=== PATIENT | male | born 1940 | race Caucasian/White ===

== ENCOUNTER → 2017-06-28 10:39 | Outpatient (CLI) | payer OTHER, SELFPAY ==
--- NOTE | 2017-06-28 12:24 | STRESSREP_ITS ---
Stress Test Report Treadmill EKG report: Resting EKG: Normal sinus rhythm, normal axis, intraventricular conduction delay , no previous myocardial infarction noted. Treadmill EKG the patient exercise according to a Jj protocol for 4 minutes and 0 seconds achieving a maximum workload of 5.70 METS. Resting heart rate was initially 67 beats a minute and melvina to maximum 131 beats a minute which represents 90% of the maximal age-predicted heart rate. Resting blood pressure was 146/90, and melvina to maximum of 180/90. Test was terminated due to dyspnea. During exercise the patient's heart rate increased as expected. The patient had no dynamic EKG changes to suggest ischemia. Rare PVC noted. No anginal symptoms noted. Conclusions normal adequate treadmill EKG. Negative for ischemia by EKG criteria. No anginal symptoms noted. Rare PVC noted. Appropriate blood pressure response to exercise. Below average exercise capacity for age. Patient tolerated procedure well. No complications.
== END ==
PROVIDERS: Family Provider Family Medicine; PCP Family Medicine; Visit Provider Family Medicine
DX: R06.09 Other forms of dyspnea (principal)
CPT/HCPCS: 93017

== ENCOUNTER → 2017-12-08 09:33 | Outpatient (CLI) | payer OTHER, SELFPAY ==
[2017-12-08 09:38] LABS: Bacteria 0 SEEN /hpf (None Seen); Mucous, Urine 0 SEEN /hpf (<or=2+); Red Blood Cells-Urine 0 SEEN /hpf (0-5); Squamous Epithelial Cells - UA 0 SEEN /hpf (0-5); White Blood Cells 0 SEEN /hpf (0-5)
[2017-12-08 12:05] LABS: Color, Urine Yellow (Yellow); Glucose, Dipstick Normal (Normal); Ketone-Dipstick Negative (Negative); Leukocyte Esterase-Dipstick Negative /ul (Negative); Nitrite-Dipstick Negative (Negative); Occult Blood-Urine Negative /ul (Negative); Protein-Dipstick Negative (Negative); Urine Bilirubin Dipstick Negative (Negative); Urine Clarity Clear (Clear); Urine Urobilinogen Normal (Normal)
[2017-12-08 12:13] LABS: Absolute Lymphocyte Count 1.71 X10^3/ul (0.83-4.51); Absolute Neutrophil Count 6.5 X10^3/uL (2.0-7.7); Basophil# 0.06 X10^3/uL; Basophil% 0.6 % (0-1); Eosinophil# 0.28 X10^3/uL; Eosinophils% 2.9 % (0-5); Hematocrit 42.4 % (40-54); Hemoglobin 14.1 g/dl (13.0-16.5); Lymphocyte # 1.71 X10^3/ul (4.0); Lymphocyte % 17.7 % (19-41); Mean Corp Hgb Conc 33.3 g/gl (32-36); Mean Corpuscular Hgb 31.6 pg (27.0-32.0); Mean Corpuscular Volume 95.1 fL (80-94); Mean Platelet Vol. 9.8 fl (6.2-12.0); Monocyte# 1.06 X10^3/uL; Neutrophil # 6.51 X10^3/uL (2.7-7.7); Neutrophil % 67.5 % (47-70); Platelet Count 245 K/mm3 (150-450); RBC Distribution Width CV 13.6 % (11.6-14.6); RBC Distribution Width SD 45.7 fl (35.1-43.9); Red Blood Count 4.46 M/mm3 (4.6-6.2); White Blood Count 9.7 K/mm3 (4.4-11.0)
[2017-12-08 12:26] LABS: POSITIVE COUNT NO; POSITIVE DIFFERENTIAL NO; POSITIVE MORPHOLOGY NO
[2017-12-08 12:39] LABS: Hemoglobin A1c 6.6 % (4.2-6.3)
[2017-12-08 12:49] LABS: Microalbumin,Random Urine 6.9 mg/L (NO RANGE EST.); Microalbumin:Creatinine Ratio 7.6 mg/g CRE (<30 mg/g CRE)
[2017-12-08 12:50] LABS: ALB/GLOB Ratio 1.1 RATIO (0.9-2.4); AST(SGOT) 30 U/L (15-37); Alanine Aminotransfer ALT/SGPT 34 U/L (16-61); Alkaline Phosphatase 54 U/L (45-117); Anion Gap 6 (5-15); BUN 18 mg/dL (7-18); BUN/Creat Ratio 17.3 RATIO (10-20); Calcium,Total 9.1 mg/dL (8.5-10.1); Chloride 99 mmol/L (98-107); Cholesterol 134 mg/dL (200); Creatinine, Serum 1.04 mg/dL (0.70-1.30); EST Glomerular Filtration Rate 74 mL/min (>60); Est Glom Filt Rate - Afr Amer 89 mL/min (>60); Globulin 3.7 g/dL (2.2-4.2); Glucose 126 mg/dL (74-106); High Density Lipoprotein 35 mg/dL; Protein, Total 7.7 g/dL (6.4-8.2); Sodium Level 134 mmol/L (136-145); Thyroid Stim Hormone (TSH) 2.52 uIU/mL (0.358-3.74); Triglycerides 211 mg/dL; Very Low Density Lipoprotein 42 mg/dL (5-40)
== END ==
PROVIDERS: Family Provider Family Medicine; PCP Family Medicine; Visit Provider Family Medicine
DX: E11.9 Type 2 diabetes mellitus without complications (principal); E78.5 Hyperlipidemia, unspecified; I10 Essential (primary) hypertension
CPT/HCPCS: 36415; 80053; 80061; 81001; 82043; 82570; 83036; 84443; 85025

== ENCOUNTER → 2018-03-28 10:27 | Outpatient (CLI) | payer OTHER, SELFPAY ==
[2018-03-28 10:30] LABS: Mucous, Urine 0 SEEN /hpf (<or=2+); Red Blood Cells-Urine 0 SEEN /hpf (0-5); Squamous Epithelial Cells - UA 0 SEEN /hpf (0-5); White Blood Cells 0 SEEN /hpf (0-5)
[2018-03-28 12:41] LABS: Color, Urine Yellow (Yellow); Glucose, Dipstick Normal (Normal); Ketone-Dipstick Negative (Negative); Leukocyte Esterase-Dipstick Negative /ul (Negative); Nitrite-Dipstick Negative (Negative); Occult Blood-Urine Negative /ul (Negative); Protein-Dipstick Negative (Negative); Specific Gravity, Urine 1.005 (1.002-1.030); Urine Bilirubin Dipstick Negative (Negative); Urine Clarity Clear (Clear); Urine Urobilinogen Normal (Normal)
[2018-03-28 12:51] LABS: Bacteria RARE /hpf (None Seen)
[2018-03-28 12:52] LABS: Absolute Lymphocyte Count 1.85 X10^3/ul (0.83-4.51); Absolute Neutrophil Count 6.6 X10^3/uL (2.0-7.7); Basophil# 0.04 X10^3/uL; Basophil% 0.4 % (0-1); Eosinophils% 1.9 % (0-5); Hematocrit 42.4 % (40-54); Hemoglobin 13.8 g/dl (13.0-16.5); Lymphocyte # 1.85 X10^3/ul (4.0); Lymphocyte % 17.8 % (19-41); Mean Corp Hgb Conc 32.5 g/gl (32-36); Mean Corpuscular Hgb 30.9 pg (27.0-32.0); Mean Corpuscular Volume 95.1 fL (80-94); Mean Platelet Vol. 9.7 fl (6.2-12.0); Monocyte# 1.63 X10^3/uL; Monocyte% 15.7 % (0-10); Neutrophil # 6.64 X10^3/uL (2.7-7.7); Neutrophil % 63.9 % (47-70); Platelet Count 245 K/mm3 (150-450); RBC Distribution Width CV 13.5 % (11.6-14.6); RBC Distribution Width SD 46.5 fl (35.1-43.9); Red Blood Count 4.46 M/mm3 (4.6-6.2); White Blood Count 10.4 K/mm3 (4.4-11.0)
[2018-03-28 13:01] LABS: Hemoglobin A1c 6.4 % (4.2-6.3)
[2018-03-28 13:11] LABS: Albumin, Serum 4.1 g/dL (3.2-5.0); BUN 15 mg/dL (7-18); BUN/Creat Ratio 14.9 RATIO (10-20); Creatinine, Serum 1.01 mg/dL (0.70-1.30); EST Glomerular Filtration Rate 76 mL/min (>60); Est Glom Filt Rate - Afr Amer 92 mL/min (>60); Glucose 99 mg/dL (74-106); Protein, Total 7.3 g/dL (6.4-8.2)
[2018-03-28 13:12] LABS: ALB/GLOB Ratio 1.3 RATIO (0.9-2.4); AST(SGOT) 19 U/L (15-37); Alanine Aminotransfer ALT/SGPT 26 U/L (16-61); Alkaline Phosphatase 64 U/L (45-117); Anion Gap 10 (5-15); Chloride 101 mmol/L (98-107); Cholesterol 120 mg/dL (200); Globulin 3.2 g/dL (2.2-4.2); High Density Lipoprotein 40 mg/dL; Potassium 4.1 mmol/L (3.5-5.1); Sodium Level 140 mmol/L (136-145); Triglycerides 150 mg/dL; Very Low Density Lipoprotein 30 mg/dL (5-40)
[2018-03-28 13:16] LABS: POSITIVE COUNT NO; POSITIVE DIFFERENTIAL YES; POSITIVE MORPHOLOGY NO
== END ==
PROVIDERS: Family Provider Family Medicine; PCP Family Medicine; Visit Provider Family Medicine
DX: I10 Essential (primary) hypertension (principal); E78.5 Hyperlipidemia, unspecified; E11.9 Type 2 diabetes mellitus without complications
CPT/HCPCS: 36415; 80053; 80061; 81001; 83036; 85025

== ENCOUNTER → 2018-06-27 09:35 | Outpatient (CLI) | payer OTHER, SELFPAY ==
[2018-06-27 12:30] LABS: ALB/GLOB Ratio 1.3 RATIO (0.9-2.4); AST(SGOT) 24 U/L (15-37); Alanine Aminotransfer ALT/SGPT 30 U/L (16-61); Albumin, Serum 4.1 g/dL (3.2-5.0); Alkaline Phosphatase 53 U/L (45-117); Anion Gap 5 (5-15); BUN 18 mg/dL (7-18); BUN/Creat Ratio 18.5 RATIO (10-20); Calcium,Total 9.3 mg/dL (8.5-10.1); Chloride 102 mmol/L (98-107); Creatinine, Serum 0.97 mg/dL (0.70-1.30); EST Glomerular Filtration Rate 80 mL/min (>60); Est Glom Filt Rate - Afr Amer 96 mL/min (>60); Globulin 3.2 g/dL (2.2-4.2); Glucose 97 mg/dL (74-106); Potassium 4.3 mmol/L (3.5-5.1); Protein, Total 7.3 g/dL (6.4-8.2); Sodium Level 138 mmol/L (136-145)
[2018-06-27 12:38] LABS: Microalbumin,Random Urine 5.7 mg/L (NO RANGE EST.); Microalbumin:Creatinine Ratio 19.8 mg/g CRE (<30 mg/g CRE)
== END ==
PROVIDERS: Family Provider Family Medicine; PCP Family Medicine; Referring Provider Family Medicine; Visit Provider Family Medicine
DX: E11.9 Type 2 diabetes mellitus without complications (principal); I10 Essential (primary) hypertension
CPT/HCPCS: 36415; 80053; 82043; 82570; 83036

== ENCOUNTER → 2018-12-24 10:30 | Outpatient (CLI) | payer OTHER, SELFPAY ==
[2018-12-24 10:35] LABS: Mucous, Urine 0 SEEN /hpf (<or=2+); Red Blood Cells-Urine 0 SEEN /hpf (0-5)
[2018-12-24 12:32] LABS: Color, Urine Yellow (Yellow); Glucose, Dipstick Normal (Normal); Ketone-Dipstick Negative (Negative); Leukocyte Esterase-Dipstick Negative /ul (Negative); Nitrite-Dipstick Negative (Negative); Occult Blood-Urine Negative /ul (Negative); Protein-Dipstick Negative (Negative); Urine Bilirubin Dipstick Negative (Negative); Urine Clarity Sl. Cloudy (Clear); Urine Urobilinogen Normal (Normal)
[2018-12-24 12:34] LABS: Absolute Lymphocyte Count 1.57 X10^3/uL (0.83-4.51); Absolute Neutrophil Count 4.9 X10^3/uL (2.0-7.7); Basophil# 0.05 X10^3/uL; Basophil% 0.6 % (0-1); Eosinophil# 0.77 X10^3/uL; Eosinophils% 9.2 % (0-5); Hematocrit 44.1 % (40-54); Hemoglobin 14.4 g/dL (13.0-16.5); Lymphocyte # 1.57 X10^3/ul (4.0); Lymphocyte % 18.8 % (19-41); Mean Corp Hgb Conc 32.7 g/dL (32-36); Mean Corpuscular Hgb 30.8 pg (27.0-32.0); Mean Corpuscular Volume 94.2 fL (80-94); Mean Platelet Vol. 10.3 fl (6.2-12.0); Monocyte# 1.01 X10^3/uL; Monocyte% 12.1 % (0-10); NRBC Flagged by Analyzer 0 % (0-5); Neutrophil % 58.7 % (47-70); Platelet Count 233 K/mm3 (150-450); RBC Distribution Width CV 13.2 % (11.6-14.6); RBC Distribution Width SD 45.7 fl (35.1-43.9); Red Blood Count 4.68 M/mm3 (4.6-6.2); White Blood Count 8.4 K/mm3 (4.4-11.0)
[2018-12-24 12:43] LABS: Bacteria RARE /hpf (None Seen); Squamous Epithelial Cells - UA 0-5 SEEN /hpf (0-5); White Blood Cells 0-5 SEEN /hpf (0-5)
[2018-12-24 13:07] LABS: BUN 16 mg/dL (7-18); Creatinine, Serum 0.96 mg/dL (0.70-1.30); EST Glomerular Filtration Rate 80 mL/min (>60); Glucose 103 mg/dL (74-106)
[2018-12-24 13:08] LABS: ALB/GLOB Ratio 1.1 RATIO (0.9-2.4); AST(SGOT) 22 U/L (15-37); Alanine Aminotransfer ALT/SGPT 32 U/L (16-61); Albumin, Serum 3.8 g/dL (3.2-5.0); Alkaline Phosphatase 69 U/L (45-117); Anion Gap 7 (5-15); BUN/Creat Ratio 16.6 RATIO (10-20); Calcium,Total 9.2 mg/dL (8.5-10.1); Chloride 103 mmol/L (98-107); Cholesterol 147 mg/dL (200); Est Glom Filt Rate - Afr Amer 97 mL/min (>60); Globulin 3.5 g/dL (2.2-4.2); High Density Lipoprotein 41 mg/dL; Potassium 4.2 mmol/L (3.5-5.1); Protein, Total 7.3 g/dL (6.4-8.2); Sodium Level 139 mmol/L (136-145); Triglycerides 152 mg/dL; Very Low Density Lipoprotein 30 mg/dL (5-40)
[2018-12-24 13:16] LABS: Hemoglobin A1c 6.3 % (4.2-6.3)
== END ==
PROVIDERS: Family Provider Family Medicine; PCP Family Medicine; Referring Provider Family Medicine; Visit Provider Family Medicine
DX: E11.9 Type 2 diabetes mellitus without complications (principal); I10 Essential (primary) hypertension; E78.5 Hyperlipidemia, unspecified
CPT/HCPCS: 36415; 80053; 80061; 81001; 83036; 85025

== ENCOUNTER → 2018-12-27 13:34 | Outpatient (CLI) | payer OTHER, SELFPAY ==
--- NOTE | 2018-12-26 | LES_PTH ---
PATIENT: CHAU BARRON LOC: [facility] U#:[id number] AGE/SX: 84/M ROOM: RE12/27/[address]: Dr. Myles Fisher MD : 1940 BED: DIS: SPEC #: [id number] RECD: 12/27/18 10:02 STATUS: SRIRAM AMALIA #: [id number] REGINO: 12/26/18 00:[address]: Myles Fisher DEPT: SURGICAL PATHOLOGY RECD BY: Marcelino Medina ENTERED: 12/27/18 14:25 SP TYPE: Lesion OTHR DR: Dr. 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 See comment. KYLIE:ildefonso 12/28/18 COMMENT The lesion is present at the deep margin of the specimen. Clinical correlation and appropriate follow up are necessary. Case has been reviewed in consultation with Dr. Miller who concurs with the above diagnosis. IDC:AM MICROSCOPIC DESCRIPTION Slides are reviewed. GROSS DESCRIPTION Received in fixative is one container labeled with the patient's name and designated right inferior medial forehead. The specimen consists of a shave biopsy of carcamo-white skin measuring 0.5 x 0.3 x 0.1 cm. The specimen is inked and submitted entirely in one cassette. It will be bisected at the time of embedding. / KYLIE:ildefonso 12/27/18 TC:0 CPT: 85459
== END ==
PROVIDERS: Family Provider Family Medicine; PCP Family Medicine; Visit Provider Dermatology
DX: D48.5 Neoplasm of uncertain behavior of skin (principal)
CPT/HCPCS: 88305

== ENCOUNTER → 2019-01-04 10:57 | Outpatient (CLI) | payer OTHER, SELFPAY ==
--- NOTE | 2019-01-04 11:00 | ECHOCS_ITS ---
Reason For Study: Murmur Procedure This was a 2D Doppler, Color Flow transthoracic echocardiogram. The study was technically difficult. Contrast injection was performed. Exam performed in department. Left Ventricle Normal LV size. Mild concentric left ventricular hypertrophy. Left ventricular systolic function is normal. The estimated ejection fraction is 60 %. No regional wall motion abnormalities noted. Right Ventricle Normal RV size. Normal systolic function. Atria Normal left atrium. Normal right atrium. Mitral Valve Normal mitral valve. Tricuspid Valve Normal tricuspid valve. Aortic Valve Trisinus/trileaflet aortic valve. Mild focal aortic valve calcification. Pulmonic Valve Normal pulmonic valve. Great Vessels Calcified aortic root. The pulmonary artery is normal size. Normal inferior vena cava. Pericardium/Pleural No pericardial effusion. Medication 22 gauge I.V. with prn adaptor inserted into left arm. Diluted definity 3ml given slow IV push to enhance endocardial definition. Performed a rapid injection of agitated mix of 9 cc saline and 1cc air to assess for atrial septal defect. MMode/2D Measurements & Calculations LVIDd: 4.3 cm IVSd: 1.3 cm LVOT diam: 2.5 cm LVIDs: 3.1 cm LVPWd: 1.2 cm RVDd: 4.1 cm FS: 28.6 % LVOT area: 5.0 cm2 Ao root diam: 4.4 cm LAV(MOD-bp): 81.6 ml LA A4 area: 21.2 cm2 LA dimension: 4.3 cm LAV(MOD-bp) Indexed: 32.0 ml/m2 LAV(MOD-sp2): 81.1 ml LAV(MOD-sp4): 70.6 ml RA A4 area: 18.2 cm2 Time Measurements MV dec time: 0.32 sec Doppler Measurements & Calculations MV E max antoni: 58.4 cm/sec Lat Peak E' Antoni: 3.7 cm/sec Med Peak E' Antoni: 5.0 cm/sec MV A max antoni: 95.5 cm/sec E/E' lat: 15.9 E/E' med: 11.7 MV E/A: 0.61 MV V2 max: 109.8 cm/sec MV P1/2t max antoni: 79.0 cm/sec Ao V2 max: 119.1 cm/sec MV max P.8 mmHg MV P1/2t: 120.5 msec Ao max P.7 mmHg MV V2 mean: 51.5 cm/sec MV dec slope: 192.0 cm/sec2 Ao V2 mean: 78.0 cm/sec MV mean P.3 mmHg Ao mean P.8 mmHg MV V2 VTI: 34.9 cm MVA(P1/2t): 1.8 cm2 Ao V2 VTI: 24.9 cm MVA(VTI): 3.0 cm2 BERTHA(I,D): 4.2 cm2 BERHTA(V,D): 3.8 cm2 LV V1 max: 92.1 cm/sec SV(LVOT): 105.0 ml PA V2 max: 74.2 cm/sec LV V1 max P.4 mmHg LV V1 mean P.7 mmHg LV V1 mean: 61.0 cm/sec LV V1 VTI: 21.2 cm Interpretation Summary Normal LV size. Mild concentric left ventricular hypertrophy. Left ventricular systolic function is normal. The estimated ejection fraction is 60 %. Contrast injection was performed. Ordering Physician: Estrada Ford Referring Physician: Estrada Ford Performed By: Jacek Bob RCS
== END ==
PROVIDERS: Family Provider Family Medicine; PCP Family Medicine; Referring Provider Family Medicine; Visit Provider Family Medicine
DX: R01.1 Cardiac murmur, unspecified (principal)
CPT/HCPCS: 93306; Q9957; A4216; C8929

== ENCOUNTER → 2019-04-19 10:28 | Outpatient (CLI) | payer OTHER, SELFPAY ==
[2019-04-19 13:01] LABS: ALB/GLOB Ratio 1.1 RATIO (0.9-2.4); AST(SGOT) 27 U/L (15-37); Alanine Aminotransfer ALT/SGPT 32 U/L (16-61); Alkaline Phosphatase 66 U/L (45-117); Anion Gap 4 (5-15); BUN 19 mg/dL (7-18); BUN/Creat Ratio 19.2 RATIO (10-20); Calcium,Total 9.3 mg/dL (8.5-10.1); Chloride 104 mmol/L (98-107); Cholesterol 134 mg/dL (200); Creatinine, Serum 0.99 mg/dL (0.70-1.30); EST Glomerular Filtration Rate 78 mL/min (>60); Est Glom Filt Rate - Afr Amer 94 mL/min (>60); Globulin 3.6 g/dL (2.2-4.2); Glucose 101 mg/dL (74-106); High Density Lipoprotein 41 mg/dL; Potassium 4.4 mmol/L (3.5-5.1); Protein, Total 7.6 g/dL (6.4-8.2); Sodium Level 136 mmol/L (136-145); Triglycerides 136 mg/dL; Very Low Density Lipoprotein 27 mg/dL (5-40)
[2019-04-19 13:13] LABS: Hemoglobin A1c 6.2 % (4.2-6.3)
[2019-04-19 13:21] LABS: Microalbumin,Random Urine < 5.0 mg/L (NO RANGE EST.)
== END ==
PROVIDERS: PCP Family Medicine; Referring Provider Family Medicine; Visit Provider Family Medicine
DX: I10 Essential (primary) hypertension (principal); E11.9 Type 2 diabetes mellitus without complications; E78.5 Hyperlipidemia, unspecified
CPT/HCPCS: 36415; 80053; 80061; 82043; 82570; 83036

== ENCOUNTER → 2019-08-21 09:02 | Outpatient (CLI) | payer OTHER, SELFPAY ==
--- NOTE | 2019-08-21 09:05 | RAD_ITS ---
STUDY: X-RAY - LEFT KNEE REASON FOR EXAM: Male, 78 years old. knee pain, left more than right TECHNIQUE: 4 view(s) of the knee. COMPARISON: None. FINDINGS: Normal visualized distal femur. Normal visualized proximal tibia and fibula. Normal proximal tibiofibular articulation. There is moderate degenerative arthrosis of the medial femorotibial compartment with moderate joint space narrowing. Normal lateral femorotibial compartment. There is severe degenerative arthrosis of the patellofemoral articulation. Superior and inferior patellar osteophytes. The soft tissue structures are unremarkable. RAD/Knee 4 or More Views IMPRESSION: Moderate medial and severe patellofemoral osteoarthritis. Electronically Signed: Terry Chua MD at 17:52 EDT Tel , Service support ,
--- NOTE | 2019-08-21 09:05 | RAD_ITS ---
STUDY: X-RAY - RIGHT KNEE REASON FOR EXAM: Male, 78 years old. knee pain, left more than right TECHNIQUE: 4 view(s) of the knee. COMPARISON: 04/13/2015 FINDINGS: Normal visualized distal femur. Normal visualized proximal tibia and fibula. Normal proximal tibiofibular articulation. There is moderate degenerative arthrosis of the medial femorotibial compartment with moderate joint space narrowing. Normal lateral femorotibial compartment. There is moderate degenerative arthrosis of the patellofemoral articulation. Superior patellar osteophyte. The soft tissue structures are unremarkable. RAD/Knee 4 or More Views IMPRESSION: Moderate medial and patellofemoral osteoarthritis. Electronically Signed: Terry Chua MD at 17:16 EDT Tel , Service support ,
== END ==
PROVIDERS: PCP Family Medicine; Referring Provider Family Medicine; Visit Provider Family Medicine
DX: M25.569 Pain in unspecified knee (principal)
CPT/HCPCS: 73564

== ENCOUNTER 2019-09-23 09:00 | Outpatient (RCR) | payer OTHER, SELFPAY ==
--- NOTE | 2019-09-03 09:43 | HP.PTEVAL ---
Patient's Visit Information CHAU BARRON is a 79 year old M referred to Physical Therapy by Dr. Estrada Ford MD with a diagnosis of L knee pain. Date of Evaluation: 09/03/19 Physical Therapist: Hernan Galan, PT, ATC - Visit Plan Frequency: 2x /Week Duration: 3 Weeks Plan: L LE stretching and strengthening, balance and proprio, core strengthening, bike, and HEP - Subjective Pt reports he was walking his dog when the dog pulled left and he injured his L knee. Pt reports the knee became swollen and was sore. Pt notes he had xrays which revealed L knee OA. Pt notes his L knee pain is stiff and some pain still exists, but he also notes he has pain in his L hip that still awakens him at night. Pt notes he believes the hip pain is related to the knee pain. pt denies any tingling or numbness iin L LE. Pt notes a PMHx of L knee pain for the last 3-4 years which was intermittent in nature. 0/10 pain at rest, 2/10 pain at worst. Pt lives in a 3 story home and has difficulty with negotiating stairs half of the time. - Pain L knee pain Pain Intensity (Out of 10): 0 Pain Intensity Range: 2 - Objective Neuro: B LE sensation is WNL to light touch. B achilles reflex= 1/3. Palpation: Mild swelling noted in L knee. Crepitus noted with AROM. Girth at joint line: L knee 44 cm, R knee 41 cm. ROM: R knee 0-3-117; L knee 0-10-91. MMT: L knee 4+/5 while R knee 5/5. Special test: pos apley compression test - Goals Goal 1:: Decrease L knee pain x 50% to aid with sleep Goal Time Frame: 2-4 Weeks Goal 2:: Increase L LE flexibility x 1 grade to aid with decreasing pain Goal Time Frame: 2-4 Weeks Goal 3:: I with HEP Goal Time Frame: 2-4 Weeks Goal 4:: Increase L knee ROM x 10 degrees to aid with stair negotiation Goal Time Frame: 2-4 Weeks - Rehabilitation Potential Physical Therapy Diagnosis: L knee pain, weakness, and limited ROM secondary to L knee OA Rehabilitation Potential: Good - Anticipated Interventions Patient/Client Instruction: Educate patient on: Condition, Plan of Care For the Purpose of:: To improve self management Therapeutic Exercise to Include: Strength training, Balance training, Flexibilty training, Active ROM, Dynamic Lumbar Stabilization For the Purpose of:: To decrease pain, To increase ROM, To improve muscle performance and motor function Cryotherapy (ice pack, ice massage): Yes For the Purpose of:: To decrease pain Thank you for the opportunity to evaluate your patient. For Medicare and Medicare HMO plans, please review the plan of care and approve it. It will need to be FAXED BACK to us at [phone] for Medicare purposes. For Medicare only, by signing this I certify the plan of care. Please let me know if there are questions or concerns regarding this plan of care. Physician Signature: Date:
--- NOTE | 2019-09-23 09:42 | HP.PTREVAL ---
Dr. Estrada Ford MD, It has been my pleasure to treat CHAU BARRON over the last 7 visits for L knee pain. Please see the progress note below for an update on the physical therapy plan of care! Subjective: Pt reports he has very minimal pain this date. Ready for discharge Objective/Function: L knee pain is .5/10. L knee ROM: 0-2-110. L knee MMT: 5/5 throughout. Pt is I with HEP. Rx goals achieved Plan Plan: Discharge Goals Goal 1:: Decrease L knee pain x 50% to aid with sleep Goal Time Frame: 2-4 Weeks Goal Progress: Goal Met Goal 2:: Increase L LE flexibility x 1 grade to aid with decreasing pain Goal Time Frame: 2-4 Weeks Goal Progress: Goal Met Goal 3:: I with HEP Goal Time Frame: 2-4 Weeks Goal Progress: Goal Met Goal 4:: Increase L knee ROM x 10 degrees to aid with stair negotiation Goal Time Frame: 2-4 Weeks Goal Progress: Goal Met Anticipated Interventions Patient/Client Instruction: Educate patient on: Condition, Plan of Care For the Purpose of:: To improve self management Therapeutic Exercise to Include: Strength training, Balance training, Flexibilty training, Active ROM, Dynamic Lumbar Stabilization For the Purpose of:: To decrease pain, To increase ROM, To improve muscle performance and motor function Cryotherapy (ice pack, ice massage): Yes For the Purpose of:: To decrease pain Please do not hesitate to contact me at [phone] by phone or if you have questions or concerns regarding this new plan of care! Sincerely, Hernan Galan, PT, ATC
--- NOTE | 2019-11-15 09:34 | HP.PTDCSUM ---
It has been my pleasure to treat CHAU BARRON referred by Dr. Estrada Ford MD, with the diagnosis of L knee pain for a total of 7 visit(s). Discharge Date: Please see the following information for a summary of their discharge status. Subjective: Pt reports he has very minimal pain this date. Ready for discharge L knee pain Pain Intensity (Out of 10): 1 % Improvement: 20 Objective/Function: L knee pain is .5/10. L knee ROM: 0-2-110. L knee MMT: 5/5 throughout. Pt is I with HEP. Rx goals achieved Goal 1:: Decrease L knee pain x 50% to aid with sleep Goal Progress: Goal Met Goal 2:: Increase L LE flexibility x 1 grade to aid with decreasing pain Goal Progress: Goal Met Goal 3:: I with HEP Goal Progress: Goal Met Goal 4:: Increase L knee ROM x 10 degrees to aid with stair negotiation Goal Progress: Goal Met Plan: Discharge If there are questions or concerns regarding this patient's physical therapy, please feel free to call me at [phone]. Thank you for the referral of this patient. Sincerely, Hernan Galan, PT, ATC
== END 2019-09-23 19:00 | disposition home or self-care (01) ==
LOC: PT 09:00
PROVIDERS: PCP Family Medicine; Referring Provider Family Medicine; Visit Provider Family Medicine
DX: M17.12 Unilateral primary osteoarthritis, left knee (principal)
CPT/HCPCS: 97110; 97161; 97164

== ENCOUNTER → 2019-12-20 09:34 | Outpatient (CLI) | payer OTHER, SELFPAY ==
[2019-12-20 09:37] LABS: Bacteria 0 SEEN /hpf (None Seen); Mucous, Urine 0 SEEN /hpf (<or=2+); Red Blood Cells-Urine 0 SEEN /hpf (0-5); Squamous Epithelial Cells - UA 0 SEEN /hpf (0-5); White Blood Cells 0 SEEN /hpf (0-5)
[2019-12-20 12:22] LABS: Absolute Lymphocyte Count 1.67 X10^3/uL (0.83-4.51); Absolute Neutrophil Count 5.4 X10^3/uL (2.0-7.7); Basophil# 0.09 X10^3/uL; Eosinophil# 0.34 X10^3/uL; Eosinophils% 3.9 % (0-5); Hematocrit 43.7 % (40-54); Lymphocyte # 1.67 X10^3/ul (4.0); Lymphocyte % 19.2 % (19-41); Mean Corpuscular Hgb 30.6 pg (27.0-32.0); Mean Corpuscular Volume 95.4 fL (80-94); Mean Platelet Vol. 10.2 fl (6.2-12.0); Monocyte# 1.11 X10^3/uL; Monocyte% 12.8 % (0-10); NRBC Flagged by Analyzer 0 % (0-5); Neutrophil # 5.43 X10^3/uL (2.7-7.7); Neutrophil % 62.6 % (47-70); Platelet Count 252 K/mm3 (150-450); RBC Distribution Width CV 13.4 % (11.6-14.6); RBC Distribution Width SD 47.2 fl (35.1-43.9); Red Blood Count 4.58 M/mm3 (4.6-6.2); White Blood Count 8.7 K/mm3 (4.4-11.0)
[2019-12-20 12:26] LABS: Color, Urine Yellow (Yellow); Glucose, Dipstick Normal (Normal); Ketone-Dipstick Negative (Negative); Leukocyte Esterase-Dipstick Negative /ul (Negative); Nitrite-Dipstick Negative (Negative); Occult Blood-Urine Negative /ul (Negative); Protein-Dipstick Negative (Negative); Urine Bilirubin Dipstick Negative (Negative); Urine Clarity Clear (Clear); Urine Urobilinogen Normal (Normal)
[2019-12-20 12:40] LABS: ALB/GLOB Ratio 1.1 RATIO (0.9-2.4); AST(SGOT) 26 U/L (15-37); Alanine Aminotransfer ALT/SGPT 35 U/L (16-61); Alkaline Phosphatase 73 U/L (45-117); Anion Gap 5 (5-15); BUN 23 mg/dL (7-18); BUN/Creat Ratio 20.9 RATIO (10-20); Calcium,Total 9.5 mg/dL (8.5-10.1); Chloride 105 mmol/L (98-107); Cholesterol 149 mg/dL (200); EST Glomerular Filtration Rate 69 mL/min (>60); Est Glom Filt Rate - Afr Amer 83 mL/min (>60); Globulin 3.8 g/dL (2.2-4.2); Glucose 123 mg/dL (74-106); High Density Lipoprotein 41 mg/dL; Potassium 4.4 mmol/L (3.5-5.1); Protein, Total 7.8 g/dL (6.4-8.2); Sodium Level 138 mmol/L (136-145); Triglycerides 159 mg/dL; Very Low Density Lipoprotein 32 mg/dL (5-40)
[2019-12-20 12:48] LABS: Microalbumin,Random Urine 10.6 mg/L (NO RANGE EST.); Microalbumin:Creatinine Ratio 8.7 mg/g CRE (<30 mg/g CRE)
[2019-12-20 14:01] LABS: Hemoglobin A1c 6.4 % (3.8-5.6)
== END ==
PROVIDERS: PCP Family Medicine; Referring Provider Family Medicine; Visit Provider Family Medicine
DX: E11.9 Type 2 diabetes mellitus without complications (principal); E78.5 Hyperlipidemia, unspecified; I10 Essential (primary) hypertension
CPT/HCPCS: 36415; 80053; 80061; 81001; 82043; 82570; 83036; 85025

== ENCOUNTER → 2020-04-17 10:56 | Outpatient (CLI) | payer OTHER, BC, SELFPAY ==
[2020-04-17 12:17] LABS: Absolute Lymphocyte Count 1.54 X10^3/uL (0.83-4.51); Absolute Neutrophil Count 5.4 X10^3/uL (2.0-7.7); Basophil# 0.07 X10^3/uL; Basophil% 0.8 % (0-1); Eosinophil# 0.35 X10^3/uL; Eosinophils% 4.1 % (0-5); Hematocrit 42.7 % (40-54); Hemoglobin 14.9 g/dL (13.0-16.5); Lymphocyte # 1.54 X10^3/ul (4.0); Lymphocyte % 18.2 % (19-41); Mean Corp Hgb Conc 34.9 g/dL (32-36); Mean Corpuscular Hgb 33.6 pg (27.0-32.0); Mean Corpuscular Volume 96.2 fL (80-94); Monocyte# 1.08 X10^3/uL; Monocyte% 12.8 % (0-10); NRBC Flagged by Analyzer 0 % (0-5); Neutrophil # 5.38 X10^3/uL (2.7-7.7); Neutrophil % 63.6 % (47-70); Platelet Count 231 K/mm3 (150-450); RBC Distribution Width CV 13.7 % (11.6-14.6); RBC Distribution Width SD 46.5 fl (35.1-43.9); Red Blood Count 4.44 M/mm3 (4.6-6.2); White Blood Count 8.5 K/mm3 (4.4-11.0)
[2020-04-17 12:34] LABS: ALB/GLOB Ratio 1.1 RATIO (0.9-2.4); AST(SGOT) 21 U/L (15-37); Alanine Aminotransfer ALT/SGPT 36 U/L (16-61); Albumin, Serum 4.1 g/dL (3.2-5.0); Alkaline Phosphatase 62 U/L (45-117); Anion Gap 3 (5-15); BUN 15 mg/dL (7-18); BUN/Creat Ratio 14.4 RATIO (10-20); Calcium,Total 9.5 mg/dL (8.5-10.1); Chloride 102 mmol/L (98-107); Cholesterol 150 mg/dL (200); Creatinine, Serum 1.04 mg/dL (0.70-1.30); EST Glomerular Filtration Rate 73 mL/min (>60); Est Glom Filt Rate - Afr Amer 89 mL/min (>60); Globulin 3.8 g/dL (2.2-4.2); Glucose 119 mg/dL (74-106); High Density Lipoprotein 44 mg/dL; Potassium 4.3 mmol/L (3.5-5.1); Protein, Total 7.9 g/dL (6.4-8.2); Sodium Level 136 mmol/L (136-145); Triglycerides 140 mg/dL; Very Low Density Lipoprotein 28 mg/dL (5-40)
[2020-04-17 13:02] LABS: Hemoglobin A1c 6.2 % (3.8-5.6)
[2020-04-17 15:32] LABS: Microalbumin,Random Urine 23.1 mg/L (NO RANGE EST.); Microalbumin:Creatinine Ratio 31.6 mg/g CRE (<30 mg/g CRE)
== END ==
PROVIDERS: PCP Family Medicine; Referring Provider Family Medicine; Visit Provider Family Medicine
DX: E11.9 Type 2 diabetes mellitus without complications (principal); I10 Essential (primary) hypertension; E78.5 Hyperlipidemia, unspecified
CPT/HCPCS: 36415; 80053; 80061; 82043; 82570; 83036; 85025

== ENCOUNTER → 2020-06-04 09:58 | Outpatient (CLI) | payer BC, SELFPAY ==
--- NOTE | 2020-06-04 10:01 | CDU_ITS ---
Reason For Study: Stenosis Rt. Velocities/BP Lt. Velocities/BP Prox CCA 128.4/27.9 cm/sec. Prox CCA 90.3/30.2 cm/sec. Mid CCA 90/24.3 cm/sec. Mid CCA 76.8/10.6 cm/sec. Dist CCA 75.3/15.1 cm/sec. Dist CCA 91.5/25.3 cm/sec. Prox ICA 71.6/24.9 cm/sec. Prox ICA 86.9/26.7 cm/sec. Mid ICA 81.4/23.7 cm/sec. Mid ICA 72.3/28.5 cm/sec. Dist ICA 87.5/31.1 cm/sec. Dist ICA 58.4/24.1 cm/sec. Rt. ICA/CCA = 0.97. Lt. ICA/CCA = 0.96. Prox ECA 124.3/27.4 cm/sec. Prox ECA 112.5/19.4 cm/sec. Rt. Vert. 35.1/8.1 cm/sec. Lt. Vert. 30.3/11.8 cm/sec. Right Extracranial There is intimal thickening but no significant atherosclerotic plaque noted in the right common carotid artery. There is heterogeneous, irregular atherosclerotic plaque noted in the right internal carotid artery. The atherosclerotic plaque causes acoustic shadowing. There is heterogeneous, irregular atherosclerotic plaque noted in the right external carotid artery. Antegrade flow is noted in the right vertebral artery. Left Extracranial There is intimal thickening but no significant atherosclerotic plaque noted in the left common carotid artery. There is heterogeneous, irregular atherosclerotic plaque noted in the left internal carotid artery. There is intimal thickening but no significant atherosclerotic plaque noted in the left external carotid artery. Antegrade flow is noted in the left vertebral artery. Procedure Carotid Duplex [id number]. This is a Carotid Duplex examination using B-mode, color flow and specral Doppler. Exam performed in department. VL/Carotid Duplex Ultrasound Interpretation Summary Calcific plaque with shadowing at the proximal right internal carotid artery wi th less than 50% stenosis. Less than 50% stenosis right external carotid artery. Minimal calcific plaque of the proximal left internal carotid artery with a les s than 50% stenosis. Less than 50% stenosis left external carotid artery Patent and antegrade vertebral arteries bilaterally Ordering Physician: Estrada Ford Referring Physician: Estrada Ford Performed By: Lisa Loyola RVT and Student
== END ==
PROVIDERS: PCP Family Medicine; Referring Provider Family Medicine; Visit Provider Family Medicine
DX: I65.23 Occlusion and stenosis of bilateral carotid arteries (principal)
CPT/HCPCS: 93880

== ENCOUNTER → 2020-08-18 11:22 | Outpatient (CLI) | payer BC, SELFPAY ==
[2020-08-18 15:15] LABS: ALB/GLOB Ratio 1.1 RATIO (0.9-2.4); AST(SGOT) 29 U/L (15-37); Alanine Aminotransfer ALT/SGPT 38 U/L (16-61); Albumin, Serum 4.1 g/dL (3.2-5.0); Alkaline Phosphatase 63 U/L (45-117); Anion Gap 5 (5-15); BUN 15 mg/dL (7-18); BUN/Creat Ratio 14.7 RATIO (10-20); Chloride 102 mmol/L (98-107); Cholesterol 143 mg/dL (200); Creatinine, Serum 1.02 mg/dL (0.70-1.30); EST Glomerular Filtration Rate 75 mL/min (>60); Est Glom Filt Rate - Afr Amer 90 mL/min (>60); Globulin 3.6 g/dL (2.2-4.2); Glucose 112 mg/dL (74-106); High Density Lipoprotein 39 mg/dL; Potassium 4.2 mmol/L (3.5-5.1); Protein, Total 7.7 g/dL (6.4-8.2); Sodium Level 136 mmol/L (136-145); Triglycerides 163 mg/dL; Very Low Density Lipoprotein 33 mg/dL (5-40)
[2020-08-18 15:19] LABS: Hemoglobin A1c 6.4 % (3.8-5.6)
[2020-08-18 15:24] LABS: Creatinine, Urine (random) < 13.00 mg/dL (NO RANGE EST.); Microalbumin,Random Urine < 5.0 mg/L (NO RANGE EST.)
== END ==
PROVIDERS: PCP Family Medicine; Visit Provider Family Medicine
DX: E11.9 Type 2 diabetes mellitus without complications (principal)
CPT/HCPCS: 36415; 80053; 80061; 82043; 82570; 83036

== ENCOUNTER → 2020-12-22 11:55 | Outpatient (CLI) | payer BC, SELFPAY ==
[2020-12-22 15:04] LABS: Hematocrit 42.8 % (40-54); Hemoglobin 14.1 g/dL (13.0-16.5); Mean Corp Hgb Conc 32.9 g/dL (32-36); Mean Corpuscular Hgb 30.9 pg (27.0-32.0); Mean Corpuscular Volume 93.7 fL (80-94); Mean Platelet Vol. 10.1 fl (6.2-12.0); Platelet Count 236 K/mm3 (150-450); RBC Distribution Width CV 13.2 % (11.6-14.6); RBC Distribution Width SD 45.3 fl (35.1-43.9); Red Blood Count 4.57 M/mm3 (4.6-6.2); White Blood Count 9.2 K/mm3 (4.4-11.0)
[2020-12-22 15:24] LABS: AST(SGOT) 22 U/L (15-37); Alanine Aminotransfer ALT/SGPT 33 U/L (16-61); Albumin, Serum 3.8 g/dL (3.2-5.0); Alkaline Phosphatase 62 U/L (45-117); Anion Gap 5 (5-15); BUN 13 mg/dL (7-18); BUN/Creat Ratio 13.8 RATIO (10-20); Calcium,Total 9.2 mg/dL (8.5-10.1); Chloride 103 mmol/L (98-107); Cholesterol 133 mg/dL (200); Creatinine, Serum 0.94 mg/dL (0.70-1.30); EST Glomerular Filtration Rate 82 mL/min (>60); Est Glom Filt Rate - Afr Amer 99 mL/min (>60); Globulin 3.7 g/dL (2.2-4.2); Glucose 117 mg/dL (74-106); High Density Lipoprotein 40 mg/dL; Potassium 4.2 mmol/L (3.5-5.1); Protein, Total 7.5 g/dL (6.4-8.2); Sodium Level 137 mmol/L (136-145); Triglycerides 136 mg/dL; Very Low Density Lipoprotein 27 mg/dL (5-40)
[2020-12-22 15:25] LABS: Hemoglobin A1c 6.6 % (3.8-5.6)
== END ==
PROVIDERS: PCP Family Medicine; Referring Provider Family Medicine; Visit Provider Nurse Practitioner Family
DX: E11.69 Type 2 diabetes mellitus with other specified complication (principal); E11.59 Type 2 diabetes mellitus with other circulatory complications
CPT/HCPCS: 36415; 80053; 80061; 83036; 85027

== ENCOUNTER 2021-04-06 10:33 | Outpatient (CLI) | payer BC, SELFPAY ==
[2021-04-06 12:25] LABS: Absolute Lymphocyte Count 1.69 X10^3/uL (0.83-4.51); Basophil# 0.09 X10^3/uL; Eosinophil# 0.39 X10^3/uL; Eosinophils% 4.2 % (0-5); Hematocrit 42.6 % (40-54); Hemoglobin 14.7 g/dL (13.0-16.5); Lymphocyte # 1.69 X10^3/ul (0.83-4.51); Lymphocyte % 18.1 % (19-41); Mean Corp Hgb Conc 34.5 g/dL (32-36); Mean Corpuscular Volume 92.8 fL (80-94); Mean Platelet Vol. 9.6 fl (6.2-12.0); Monocyte# 1.13 X10^3/uL; Monocyte% 12.1 % (0-10); NRBC Flagged by Analyzer 0 % (0-5); Neutrophil % 64.1 % (47-70); Platelet Count 251 K/mm3 (150-450); RBC Distribution Width CV 13.2 % (11.6-14.6); RBC Distribution Width SD 44.6 fl (35.1-43.9); Red Blood Count 4.59 M/mm3 (4.6-6.2); White Blood Count 9.4 K/mm3 (4.4-11.0)
[2021-04-06 12:58] LABS: ALB/GLOB Ratio 1.3 RATIO (0.9-2.4); AST(SGOT) 24 U/L (15-37); Alanine Aminotransfer ALT/SGPT 36 U/L (16-61); Albumin, Serum 4.1 g/dL (3.2-5.0); Alkaline Phosphatase 66 U/L (45-117); Anion Gap 6 (5-15); BUN 15 mg/dL (7-18); BUN/Creat Ratio 15.9 RATIO (10-20); Calcium,Total 9.2 mg/dL (8.5-10.1); Chloride 101 mmol/L (98-107); Cholesterol 141 mg/dL (200); Creatinine, Serum 0.94 mg/dL (0.70-1.30); EST Glomerular Filtration Rate 82 mL/min (>60); Est Glom Filt Rate - Afr Amer 99 mL/min (>60); Globulin 3.2 g/dL (2.2-4.2); Glucose 134 mg/dL (74-106); High Density Lipoprotein 42 mg/dL; Potassium 4.2 mmol/L (3.5-5.1); Protein, Total 7.3 g/dL (6.4-8.2); Sodium Level 136 mmol/L (136-145); Triglycerides 165 mg/dL; Very Low Density Lipoprotein 33 mg/dL (5-40)
[2021-04-06 13:07] LABS: Hemoglobin A1c 6.5 % (3.8-5.6)
[2021-04-06 16:26] LABS: Microalbumin:Creatinine Ratio 22.7 mg/g CRE (<30 mg/g CRE)
== END 2021-04-06 23:59 | disposition home or self-care (01) ==
LOC: MFPLAB 10:34
PROVIDERS: PCP Family Medicine; Referring Provider Family Medicine; Visit Provider Family Medicine
DX: E11.29 Type 2 diabetes mellitus with other diabetic kidney complication (principal); E11.69 Type 2 diabetes mellitus with other specified complication; J45.909 Unspecified asthma, uncomplicated
CPT/HCPCS: 36415; 80053; 80061; 82043; 82570; 83036; 85025

== ENCOUNTER → 2021-08-25 | Outpatient (CLI) | payer BC, SELFPAY ==
[2021-08-25 12:21] LABS: Absolute Lymphocyte Count 1.56 X10^3/uL (0.83-4.51); Absolute Neutrophil Count 5.6 X10^3/uL (2.0-7.7); Basophil# 0.07 X10^3/uL; Basophil% 0.8 % (0-1); Eosinophil# 0.78 X10^3/uL; Eosinophils% 8.6 % (0-5); Hematocrit 41.9 % (40-54); Lymphocyte # 1.56 X10^3/ul (0.83-4.51); Lymphocyte % 17.1 % (19-41); Mean Corp Hgb Conc 33.4 g/dL (32-36); Mean Corpuscular Hgb 31.5 pg (27.0-32.0); Mean Corpuscular Volume 94.4 fL (80-94); Mean Platelet Vol. 9.7 fl (6.2-12.0); Monocyte# 1.12 X10^3/uL; Monocyte% 12.3 % (0-10); NRBC Flagged by Analyzer 0 % (0-5); Neutrophil # 5.55 X10^3/uL (2.7-7.7); Neutrophil % 60.8 % (47-70); Platelet Count 231 K/mm3 (150-450); RBC Distribution Width CV 13.2 % (11.6-14.6); RBC Distribution Width SD 45.2 fl (35.1-43.9); Red Blood Count 4.44 M/mm3 (4.6-6.2); White Blood Count 9.1 K/mm3 (4.4-11.0)
[2021-08-25 12:47] LABS: ALB/GLOB Ratio 1.2 RATIO (0.9-2.4); AST(SGOT) 25 U/L (15-37); Alanine Aminotransfer ALT/SGPT 33 U/L (16-61); Albumin, Serum 3.9 g/dL (3.2-5.0); Alkaline Phosphatase 58 U/L (45-117); Anion Gap 4 (5-15); BUN 14 mg/dL (7-18); BUN/Creat Ratio 15.5 RATIO (10-20); Calcium,Total 8.9 mg/dL (8.5-10.1); Chloride 104 mmol/L (98-107); Cholesterol 133 mg/dL (200); Creatinine, Serum 0.91 mg/dL (0.70-1.30); EST Glomerular Filtration Rate 85 mL/min (>60); Est Glom Filt Rate - Afr Amer 103 mL/min (>60); Globulin 3.3 g/dL (2.2-4.2); Glucose 124 mg/dL (74-106); High Density Lipoprotein 39 mg/dL; Potassium 4.1 mmol/L (3.5-5.1); Protein, Total 7.2 g/dL (6.4-8.2); Sodium Level 136 mmol/L (136-145); Triglycerides 133 mg/dL; Very Low Density Lipoprotein 27 mg/dL (5-40)
[2021-08-25 12:55] LABS: Hemoglobin A1c 6.7 % (3.8-5.6)
== END | disposition home or self-care (01) ==
LOC: MFPLAB 11:12
PROVIDERS: PCP Family Medicine; Referring Provider Family Medicine; Visit Provider Family Medicine
DX: E11.69 Type 2 diabetes mellitus with other specified complication (principal)
CPT/HCPCS: 36415; 80053; 80061; 83036; 85025

== ENCOUNTER → 2021-11-02 | Outpatient (CLI) | payer BC, SELFPAY ==
--- NOTE | 2021-11-02 10:19 | CDU_ITS ---
Reason For Study: carotid stenosis Rt. Velocities/BP Lt. Velocities/BP Prox CCA 91.9/15.4 cm/sec. Prox CCA 103.6/25.6 cm/sec. Mid CCA 67.4/17.3 cm/sec. Mid CCA 118.2/31.1 cm/sec. Dist CCA 85.3/18.2 cm/sec. Dist CCA 97.4/23.7 cm/sec. Prox ICA 35.1/5.9 cm/sec. Prox ICA 54.4/13.9 cm/sec. Mid ICA 76.2/22.1 cm/sec. Mid ICA 63.0/22.5 cm/sec. Dist ICA 58.5/22.0 cm/sec. Dist ICA 103.5/33.5 cm/sec. Rt. ICA/CCA = 1.1. Lt. ICA/CCA = .9. Prox ECA 113.5/19.0 cm/sec. Prox ECA 94.9/21.2 cm/sec. Rt. Vert. 43.2/11.3 cm/sec. Lt. Vert. 32.5/11.6 cm/sec. Right Extracranial There is homogeneous, smooth atherosclerotic plaque noted in the right common carotid artery. There is heterogeneous, irregular atherosclerotic plaque noted in the right internal carotid artery. There is heterogeneous, irregular atherosclerotic plaque noted in the right external carotid artery. Antegrade flow is noted in the right vertebral artery. Left Extracranial There is homogeneous, smooth atherosclerotic plaque noted in the left common carotid artery. There is heterogeneous, irregular atherosclerotic plaque noted in the left internal carotid artery. There is heterogeneous, irregular atherosclerotic plaque noted in the left external carotid artery. Antegrade flow is noted in the left vertebral artery. Procedure Carotid Duplex 97396. This is a Carotid Duplex examination using B-mode, color flow and specral Doppler. The exam was diagnostic. Exam performed in department. VL/Carotid Duplex Ultrasound Interpretation Summary Mild (<50%) stenosis right extracranial internal carotid. Mild (<50%) stenosis left extracranial internal carotid. Flow within the vertebral arteries is antegrade bilaterally. Ordering Physician: Estrada Ford Performed By: Evangelista Ruffin RVT
== END | disposition home or self-care (01) ==
PROVIDERS: PCP Family Medicine; Referring Provider Family Medicine; Visit Provider Family Medicine
DX: I65.23 Occlusion and stenosis of bilateral carotid arteries (principal)
CPT/HCPCS: 93880

== ENCOUNTER → 2021-12-06 | Outpatient (CLI) | payer BC, SELFPAY ==
[2021-12-06 13:24] LABS: ALB/GLOB Ratio 1.1 RATIO (0.9-2.4); AST(SGOT) 21 U/L (15-37); Alanine Aminotransfer ALT/SGPT 32 U/L (16-61); Albumin, Serum 3.8 g/dL (3.2-5.0); Alkaline Phosphatase 61 U/L (45-117); Anion Gap 7 (5-15); BUN 14 mg/dL (7-18); BUN/Creat Ratio 14.1 RATIO (10-20); Calcium,Total 9.1 mg/dL (8.5-10.1); Chloride 102 mmol/L (98-107); Cholesterol 138 mg/dL (200); Creatinine, Serum 0.99 mg/dL (0.70-1.30); EST Glomerular Filtration Rate 77 mL/min (>60); Est Glom Filt Rate - Afr Amer 93 mL/min (>60); Globulin 3.5 g/dL (2.2-4.2); Glucose 148 mg/dL (74-106); High Density Lipoprotein 44 mg/dL; Potassium 4.5 mmol/L (3.5-5.1); Protein, Total 7.3 g/dL (6.4-8.2); Sodium Level 136 mmol/L (136-145); Triglycerides 163 mg/dL; Very Low Density Lipoprotein 33 mg/dL (5-40)
[2021-12-06 14:03] LABS: Hemoglobin A1c 6.8 % (3.8-5.6)
[2021-12-06 14:15] LABS: Microalbumin,Random Urine < 5.0 mg/L (NO RANGE EST.)
== END | disposition home or self-care (01) ==
LOC: MFPLAB 10:13
PROVIDERS: PCP Family Medicine; Visit Provider Family Medicine
DX: E11.9 Type 2 diabetes mellitus without complications (principal)
CPT/HCPCS: 36415; 80053; 80061; 82043; 82570; 83036

== ENCOUNTER → 2022-05-13 | Outpatient (CLI) | payer BC, SELFPAY ==
[2022-05-13 12:10] LABS: Basophil# 0.09 X10^3/uL; Basophil% 1.1 % (0-1); Eosinophil# 0.38 X10^3/uL; Eosinophils% 4.8 % (0-5); Hematocrit 41.4 % (40-54); Hemoglobin 13.6 g/dL (13.0-16.5); Lymphocyte % 18.8 % (19-41); Mean Corp Hgb Conc 32.9 g/dL (32-36); Mean Corpuscular Hgb 31.3 pg (27.0-32.0); Mean Corpuscular Volume 95.4 fL (80-94); Mean Platelet Vol. 9.9 fl (6.2-12.0); Monocyte# 0.99 X10^3/uL; Monocyte% 12.4 % (0-10); NRBC Flagged by Analyzer 0 % (0-5); Neutrophil % 62.5 % (47-70); Platelet Count 221 K/mm3 (150-450); RBC Distribution Width CV 13.2 % (11.6-14.6); RBC Distribution Width SD 46.8 fl (35.1-43.9); Red Blood Count 4.34 M/mm3 (4.6-6.2)
[2022-05-13 12:36] LABS: ALB/GLOB Ratio 1.1 RATIO (0.9-2.4); AST(SGOT) 23 U/L (15-37); Alanine Aminotransfer ALT/SGPT 28 U/L (16-61); Albumin, Serum 3.7 g/dL (3.2-5.0); Alkaline Phosphatase 60 U/L (45-117); Anion Gap 6 (5-15); BUN 17 mg/dL (7-18); BUN/Creat Ratio 18.4 RATIO (10-20); Calcium,Total 9.5 mg/dL (8.5-10.1); Chloride 103 mmol/L (98-107); Cholesterol 131 mg/dL (200); Creatinine, Serum 0.92 mg/dL (0.70-1.30); EST Glomerular Filtration Rate 84 mL/min (>60); Est Glom Filt Rate - Afr Amer 101 mL/min (>60); Globulin 3.4 g/dL (2.2-4.2); Glucose 159 mg/dL (74-106); High Density Lipoprotein 38 mg/dL; Potassium 4.1 mmol/L (3.5-5.1); Protein, Total 7.1 g/dL (6.4-8.2); Sodium Level 137 mmol/L (136-145); Triglycerides 156 mg/dL; Very Low Density Lipoprotein 31 mg/dL (5-40)
[2022-05-13 13:00] LABS: Microalbumin,Random Urine 8.3 mg/L (NO RANGE EST.); Microalbumin:Creatinine Ratio 14.7 mg/g CRE (<30 mg/g CRE)
[2022-05-13 13:21] LABS: Hemoglobin A1c 7.4 % (3.8-5.6)
== END | disposition home or self-care (01) ==
LOC: MFPLAB 09:30
PROVIDERS: PCP Family Medicine; Referring Provider Family Medicine; Visit Provider Family Medicine
DX: E11.9 Type 2 diabetes mellitus without complications (principal)
CPT/HCPCS: 36415; 80053; 80061; 82043; 82570; 83036; 85025

== ENCOUNTER → 2022-07-05 | Outpatient (CLI) | payer BC, SELFPAY ==
--- NOTE | 2022-07-05 07:57 | ART_ITS ---
Reason For Study: Bilateral Decreased Pedal Pulses Procedure A bilateral lower extremity continuous wave Doppler with analog waveform analysis,segmental pressures,and ankle brachial indexes with exercise. Left Segmental Pressures Left brachial= 112mmHg. Left posterior tibial artery = 142mmHg. Left dorsalis pedis artery = 122mmHg. Left digit = 86 mmHg. The left posterior tibial artery waveforms are triphasic. The left dorsalis pedis waveforms are triphasic. Right Segmental Pressures Right brachial= 116mmHg. Right posterior tibial artery = 147mmHg. Right dorsalis pedis artery = 138mmHg. Right digit = 89 mmHg. The right posterior tibial artery waveforms are triphasic. The right dorsalis pedis waveforms are triphasic. Indices The right ankle brachial index by the posterior tibial artery is 1.27. The right ankle brachial index by the dorsalis pedis is 1.19. The right digital-brachial index is 0.77. The right post exercise ankle brachial index is 1.43. The left ankle brachial index by the posterior tibial artery is 1.22. The left ankle brachial index by the dorsalis pedis is 1.05. The left digital-brachial index is 0.74. The left posterior tibial artery index post exercise is 1.23. VL/Lower Ext Art Exam w/ Exercise Interpretation Summary Right JIMI 1.27, normal. TBI and Doppler/PVR waveforms of the right leg normal a t rest. Right lower extremity exhibits normal response to exercise. Left JIMI 1.22, normal. Doppler/PVR waveforms of the left leg normal at rest. TB I diminished, pedal/digit disease vs spasm Left lower extremity exhibits normal response to exercise. Ordering Physician: Estrada Ford Referring Physician: Estrada Ford Performed By: Ty Shukla, RVT
== END | disposition home or self-care (01) ==
LOC: CVS 07:56
PROVIDERS: PCP Family Medicine; Referring Provider Family Medicine; Visit Provider Family Medicine
DX: R09.89 Other specified symptoms and signs involving the circulatory and respiratory systems (principal)
CPT/HCPCS: 93924

== ENCOUNTER → 2022-08-29 | Outpatient (CLI) | payer BC, SELFPAY ==
[2022-08-29 12:06] LABS: Absolute Lymphocyte Count 1.87 X10^3/uL (0.83-4.51); Absolute Neutrophil Count 7.1 X10^3/uL (2.0-7.7); Basophil# 0.07 X10^3/uL; Basophil% 0.6 % (0-1); Eosinophil# 0.44 X10^3/uL; Eosinophils% 4.1 % (0-5); Hematocrit 41.7 % (40-54); Lymphocyte # 1.87 X10^3/ul (0.83-4.51); Lymphocyte % 17.3 % (19-41); Mean Corp Hgb Conc 33.6 g/dL (32-36); Mean Corpuscular Hgb 32.3 pg (27.0-32.0); Mean Corpuscular Volume 96.1 fL (80-94); Monocyte# 1.33 X10^3/uL; Monocyte% 12.3 % (0-10); NRBC Flagged by Analyzer 0 % (0-5); Neutrophil # 7.05 X10^3/uL (2.7-7.7); Neutrophil % 65.1 % (47-70); Platelet Count 232 K/mm3 (150-450); RBC Distribution Width CV 13.3 % (11.6-14.6); RBC Distribution Width SD 47.6 fl (35.1-43.9); Red Blood Count 4.34 M/mm3 (4.6-6.2); White Blood Count 10.8 K/mm3 (4.4-11.0)
[2022-08-29 12:39] LABS: Microalbumin:Creatinine Ratio 24.9 mg/g CRE (<30 mg/g CRE)
[2022-08-29 12:54] LABS: AST(SGOT) 23 U/L (15-37); Alanine Aminotransfer ALT/SGPT 29 U/L (16-61); Albumin, Serum 3.8 g/dL (3.2-5.0); Alkaline Phosphatase 59 U/L (45-117); Anion Gap 5 (5-15); BUN 16 mg/dL (7-18); BUN/Creat Ratio 16.8 RATIO (10-20); Calcium,Total 9.1 mg/dL (8.5-10.1); Chloride 104 mmol/L (98-107); Cholesterol 116 mg/dL (200); Creatinine, Serum 0.96 mg/dL (0.70-1.30); EST Glomerular Filtration Rate 80 mL/min (>60); Est Glom Filt Rate - Afr Amer 97 mL/min (>60); Globulin 3.7 g/dL (2.2-4.2); Glucose 133 mg/dL (74-106); High Density Lipoprotein 39 mg/dL; Potassium 4.2 mmol/L (3.5-5.1); Protein, Total 7.5 g/dL (6.4-8.2); Sodium Level 135 mmol/L (136-145); Triglycerides 215 mg/dL; Very Low Density Lipoprotein 43 mg/dL (5-40)
[2022-08-29 13:43] LABS: Hemoglobin A1c 6.8 % (3.8-5.6)
== END | disposition home or self-care (01) ==
PROVIDERS: PCP Family Medicine; Referring Provider Family Medicine; Visit Provider Family Medicine
DX: E11.9 Type 2 diabetes mellitus without complications (principal)
CPT/HCPCS: 36415; 80053; 80061; 82043; 82570; 83036; 85025

== ENCOUNTER → 2022-12-26 | Outpatient (CLI) | payer BC, SELFPAY ==
[2022-12-26 12:21] LABS: Absolute Lymphocyte Count 1.69 X10^3/uL (0.83-4.51); Absolute Neutrophil Count 5.7 X10^3/uL (2.0-7.7); Basophil# 0.06 X10^3/uL; Basophil% 0.7 % (0-1); Eosinophil# 0.38 X10^3/uL; Eosinophils% 4.2 % (0-5); Hematocrit 42.8 % (40-54); Hemoglobin 13.8 g/dL (13.0-16.5); Lymphocyte # 1.69 X10^3/ul (0.83-4.51); Lymphocyte % 18.9 % (19-41); Mean Corp Hgb Conc 32.2 g/dL (32-36); Mean Corpuscular Hgb 31.6 pg (27.0-32.0); Mean Corpuscular Volume 97.9 fL (80-94); Mean Platelet Vol. 9.9 fl (6.2-12.0); Monocyte# 1.11 X10^3/uL; Monocyte% 12.4 % (0-10); NRBC Flagged by Analyzer 0 % (0-5); Neutrophil # 5.67 X10^3/uL (2.7-7.7); Neutrophil % 63.4 % (47-70); Platelet Count 229 K/mm3 (150-450); RBC Distribution Width SD 46.5 fl (35.1-43.9); Red Blood Count 4.37 M/mm3 (4.6-6.2)
[2022-12-26 13:05] LABS: ALB/GLOB Ratio 1.1 RATIO (0.9-2.4); AST(SGOT) 19 U/L (15-37); Alanine Aminotransfer ALT/SGPT 31 U/L (16-61); Albumin, Serum 3.8 g/dL (3.2-5.0); Alkaline Phosphatase 61 U/L (45-117); Anion Gap 7 (5-15); BUN 16 mg/dL (7-18); BUN/Creat Ratio 15.7 RATIO (10-20); Calcium,Total 9.3 mg/dL (8.5-10.1); Chloride 100 mmol/L (98-107); Cholesterol 116 mg/dL (200); Creatinine, Serum 1.02 mg/dL (0.70-1.30); EST Glomerular Filtration Rate 74 mL/min (>60); Est Glom Filt Rate - Afr Amer 90 mL/min (>60); Globulin 3.5 g/dL (2.2-4.2); Glucose 163 mg/dL (74-106); High Density Lipoprotein 39 mg/dL; Potassium 4.5 mmol/L (3.5-5.1); Protein, Total 7.3 g/dL (6.4-8.2); Sodium Level 135 mmol/L (136-145); Triglycerides 151 mg/dL; Very Low Density Lipoprotein 30 mg/dL (5-40)
[2022-12-26 13:17] LABS: Hemoglobin A1c 6.8 % (3.8-5.6)
[2022-12-26 13:26] LABS: Microalbumin,Random Urine 9.7 mg/L (NO RANGE EST.); Microalbumin:Creatinine Ratio 31.2 mg/g CRE (<30 mg/g CRE)
== END | disposition home or self-care (01) ==
LOC: MFPLAB 10:00
PROVIDERS: PCP Family Medicine; Visit Provider Family Medicine
DX: E11.69 Type 2 diabetes mellitus with other specified complication (principal)
CPT/HCPCS: 36415; 80053; 80061; 82043; 82570; 83036; 85025

== ENCOUNTER → 2023-04-24 | Outpatient (CLI) | payer BC, SELFPAY ==
--- OUTSIDE RECORDS SUMMARY | 2023-04-24 11:34 | XMS RPT_ITS | CCD ---
Author Name Unknown Address [address] [place] [address] Organization [facility] Care Team Providers Care Waterworks Supervisor Name Role Phone Skyler Garcia Unavailable Unavailable Problems Active Problems Problem Classification Problem Date Documented Da te Episodic/Chronic Unclassified (1 source) Unknown / UNK(Unknown) Onset: 12-21-2016 Past or Other Problems Problem Classification Problem Date Documented Da te Episodic/Chronic Unclassified (1 source) E78.00,E11.9 Onset: 12-21-2016 Results Test Name Value Interpretation Reference Range Facil ity Encounters Encounter Date Encounter Type Care Provider Facility Start: 12-21-2016 Ambulatory Skyler Garcia Facilit y:[facility] Payers Date Payer Category Payer Unknown [id number] Summary Purpose Family History No Family History Records Found Advance Directives No Advanced Directives Records Found Additional Source Comments (unrecognized sect ion and content) No Status Records Found INFORMATION SOURCE (unrecogn ized section and content) FOR RECORDS PERTAINING TO PATIENTS WHO ARE OR HAVE BEEN ENROLLED IN A CHEMICAL DEPENDENCY/SUBSTANCEABUSE PROGRAM, SOME INFORMATION MAY BE OMITTED. This clinical summary was aggregated from multiple sources. Caution should be exercised in using it in the provision of clinical care. This summary normalizes information from multiple sources, and as a consequence, information in this document may materially change the coding, format and clinical context of patient data. In addition, data may be omitted in some cases. CLINICAL DECISIONS SHOULD BE BASED ON THE PRIMARY CLINICAL RECORDS. [employer] provides no warranty or guarantee of the accuracy or completeness of information in this document.
[2023-04-24 12:33] LABS: Absolute Neutrophil Count 5.9 X10^3/uL (2.0-7.7); Basophil# 0.08 X10^3/uL; Basophil% 0.9 % (0-1); Eosinophil# 0.39 X10^3/uL; Eosinophils% 4.2 % (0-5); Hematocrit 42.3 % (40-54); Hemoglobin 13.9 g/dL (13.0-16.5); Lymphocyte % 19.2 % (19-41); Mean Corp Hgb Conc 32.9 g/dL (32-36); Mean Corpuscular Hgb 31.2 pg (27.0-32.0); Mean Corpuscular Volume 94.8 fL (80-94); Mean Platelet Vol. 9.9 fl (6.2-12.0); Monocyte# 1.16 X10^3/uL; Monocyte% 12.4 % (0-10); NRBC Flagged by Analyzer 0 % (0-5); Neutrophil # 5.91 X10^3/uL (2.7-7.7); Neutrophil % 62.8 % (47-70); Platelet Count 254 K/mm3 (150-450); RBC Distribution Width CV 13.2 % (11.6-14.6); RBC Distribution Width SD 45.6 fl (35.1-43.9); Red Blood Count 4.46 M/mm3 (4.6-6.2); White Blood Count 9.4 K/mm3 (4.4-11.0)
[2023-04-24 13:33] LABS: ALB/GLOB Ratio 1.1 RATIO (0.9-2.4); AST(SGOT) 22 U/L (15-37); Alanine Aminotransfer ALT/SGPT 31 U/L (16-61); Alkaline Phosphatase 58 U/L (45-117); Anion Gap 6 (5-15); BUN 19 mg/dL (7-18); BUN/Creat Ratio 20.2 RATIO (10-20); Calcium,Total 9.4 mg/dL (8.5-10.1); Chloride 103 mmol/L (98-107); Cholesterol 128 mg/dL (200); Creatinine, Serum 0.94 mg/dL (0.70-1.30); EST Glomerular Filtration Rate 81 mL/min (>60); Est Glom Filt Rate - Afr Amer 99 mL/min (>60); Globulin 3.5 g/dL (2.2-4.2); Glucose 153 mg/dL (74-106); High Density Lipoprotein 40 mg/dL; Protein, Total 7.5 g/dL (6.4-8.2); Sodium Level 137 mmol/L (136-145); Triglycerides 191 mg/dL; Very Low Density Lipoprotein 38 mg/dL (5-40)
[2023-04-24 13:39] LABS: Hemoglobin A1c 6.9 % (3.8-5.6)
[2023-04-24 13:48] LABS: Microalbumin,Random Urine 11.2 mg/L (NO RANGE EST.); Microalbumin:Creatinine Ratio 19.9 mg/g CRE (<30 mg/g CRE)
== END | disposition home or self-care (01) ==
LOC: MFPLAB 10:52
PROVIDERS: PCP Family Medicine; Visit Provider Family Medicine
DX: E11.8 Type 2 diabetes mellitus with unspecified complications (principal)
CPT/HCPCS: 36415; 80053; 80061; 82043; 82570; 83036; 85025

== ENCOUNTER → 2023-05-05 | Outpatient (CLI) | payer BC, SELFPAY ==
--- NOTE | 2023-05-05 09:58 | CDU_ITS ---
Reason For Study: BILATERAL CAROTID STENOSIS Rt. Velocities/BP Lt. Velocities/BP Prox CCA 94.1/17.1 cm/sec. Prox CCA 80.9/20.4 cm/sec. Mid CCA 88.6/20.4 cm/sec. Mid CCA 96.3/22.6 cm/sec. Dist CCA 69.9/20.4 cm/sec. Dist CCA 89.7/25.9 cm/sec. Prox ICA 71.0/18.2 cm/sec. Prox ICA 52.8/19.7 cm/sec. Mid ICA 87.5/31.4 cm/sec. Mid ICA 83.4/34.0 cm/sec. Dist ICA 102.7/37.6 cm/sec. Dist ICA 94.1/35.8 cm/sec. Rt. ICA/CCA = 102.7/88.6=1.2. Lt. ICA/CCA = 94.1/96.3=1.0. Prox ECA 67.7/10.6 cm/sec. Prox ECA 94.1/13.8 cm/sec. Rt. Vert. 38.3/10.4 cm/sec. Lt. Vert. 34.8/14.2 cm/sec. Right Extracranial There is homogeneous, smooth atherosclerotic plaque noted in the right common carotid artery. There is intimal thickening but no significant atherosclerotic plaque noted in the right internal carotid artery. The right internal carotid artery is very tortuous. There is intimal thickening but no significant atherosclerotic plaque noted in the right external carotid artery. Antegrade flow is noted in the right vertebral artery. Left Extracranial There is homogeneous, smooth atherosclerotic plaque noted in the left common carotid artery. There is intimal thickening but no significant atherosclerotic plaque noted in the left internal carotid artery. There is intimal thickening but no significant atherosclerotic plaque noted in the left external carotid artery. Antegrade flow is noted in the left vertebral artery. There is heterogeneous, irregular atherosclerotic plaque noted in the left bulb. Procedure Carotid Duplex 58775. This is a Carotid Duplex examination using B-mode, color flow and specral Doppler. Exam performed in department. VL/Carotid Duplex Ultrasound Interpretation Summary Mild (<50%) stenosis right extracranial internal carotid. No significant athero sclerotic plaque or stenosis noted in the left internal carotid artery. Heterogeneous, irregular at herosclerotic plaque is noted in the left carotid bulb, which does not appear to be hemodynamically significant. Flow within the vertebral arteries is antegrade bilaterally. Ordering Physician: Estrada Ford Referring Physician: Estrada Ford Performed By: Eulalia Avila, LUCIA, RVT
== END | disposition home or self-care (01) ==
PROVIDERS: PCP Family Medicine; Referring Provider Family Medicine; Visit Provider Family Medicine
DX: I65.29 Occlusion and stenosis of unspecified carotid artery (principal)
CPT/HCPCS: 93880

== ENCOUNTER 2023-06-01 20:05 | Inpatient (IN) | payer MEDICARE, BC, SELFPAY ==
[2023-06-01 20:06] VITALS: BP 158/87; PULSE 60; RESP 18; TEMP 36.6; O2SAT 96; BMI 34.4
--- NOTE | 2023-06-01 20:09 | RAD_ITS ---
STUDY: X-RAY CHEST REASON FOR EXAM: Male, 82 years old. chest pain TECHNIQUE: Single AP portable view of the chest. COMPARISON: To 811 FINDINGS: The lungs are clear and expanded. There is no demonstrated pleural abnormality. Normal size heart. Normal mediastinum and yesica. Normal visualized pulmonary arteries. Normal visualized aortic arch and descending thoracic aorta. Normal visualized thoracic spine. Normal visualized ribs, clavicles, and shoulders. There is no demonstrated abnormality of the visualized soft tissue structures of the upper abdomen. RAD/Chest 1 View (Portable) IMPRESSION: Normal x-ray examination of the chest. Electronically Signed: Bienvenido Long MD at 21:15 EDT ,
--- NOTE | 2023-06-01 20:09 | EKG12_ITS ---
Test Reason : CP Blood Pressure : / mmHG Vent. Rate : 059 BPM Atrial Rate : 059 BPM P-R Int : 200 ms QRS Dur : 126 ms QT Int : 420 ms P-R-T Axes : 032 -11 083 degrees QTc Int : 415 ms Sinus bradycardia with Premature supraventricular complexes Non-specific intra-ventricular conduction block Abnormal ECG Confirmed by ROGELIO CHAPMAN, KONRAD ([id number]), online content editor BUDDY PATTON ([id number]) on 06/02/2023 8:21:11 AM Referred By: Confirmed By:KONRAD MERCADO MD
--- NOTE | 2023-06-01 20:29 | EDS_ITS ---
HPI <DENZEL Purdy - Last Filed: 06/01/23 21:55> History of Present Illness Chief Complaint: Chest Pain Narrative Narrative: 82-year-old male with PMH of HTN, HLD, DM2 states about 8 PM he was on his riding lawnmower when he developed midsternal chest pressure, coughing, burping and sweating. He states he was not exerting himself. He did not feel short of breath or have any pain in his jaw or extremities. He got off the mower and used an albuterol inhaler with no change in his symptoms. He states on arrival the chest pressure lessened but is still there. He denies cardiac history. He has never been a smoker. He has no history of DVT/PE or risk factors. He takes aspirin 81 mg daily but held it this week for a tooth implant procedure. PFSH <DENZEL Purdy - Last Filed: 06/01/23 21:55> [facility] Medical History (Updated 06/01/23 @ 23:[address] Curtis Lancaster MD) DM II (diabetes mellitus, type II), controlled HTN (hypertension) Hyperlipidemia Home Medications aspirin 81 mg tablet,delayed release 81 mg PO DAILY@0800 07/15/14 [History Last Taken Unknown] atorvastatin 40 mg tablet 40 mg PO QHS 07/15/14 [History Last Taken Unknown] coenzyme Q10 50 mg capsule (Co Q-10) 30 mg PO DAILY 07/15/14 [History Last Taken Unknown] metformin 500 mg tablet,extended release 24 hr 500 mg PO BID 07/15/14 [History Last Taken Unknown] niacinamide 500 mg tablet 500 mg PO DAILY 07/15/14 [History Last Taken Unknown] Allergy/AdvReac Type Severity Reaction Status Date / Time No Known Allergies Allergy Verified 06/01/23 20:08 Social History Smoking Status: Never smoker ROS <DENZEL Purdy - Last Filed: 06/01/23 21:55> ROS ED ROS Narrative Constitutional: Negative for fever, chills, malaise. CVS: Positive for chest pain. Negative for palpitations, syncope. Respiratory: Negative for shortness of breath. GI: Negative for abdominal pain, nausea, vomiting. EXAM <DENZEL Purdy - Last Filed: 06/01/23 21:55> Physical Exam Narrative Exam Narrative: CONST: Patient sitting in no acute distress. EYES: Normal inspection. NECK: Normal inspection. RESP: No respiratory distress, CTAB. CVS: Regular rate and rhythm, no murmur, no gallop. ABD: Soft and nontender, no guarding or rebound, nondistended. SKIN: Color normal, no rash, warm, dry, intact. EXTREMITIES: Normal appearance, no pedal edema. NEURO: Alert and answering questions appropriately. PSYCH: Normal affect. Const Vital Signs: 06/01/23 20:06 06/01/23 20:38 06/01/23 20:41 Temperature 97.9 F Temperature Source Temporal Pulse Rate 60 Respiratory Rate 18 Respiratory Effort Normal Non-Labored Blood Pressure 158/87 H Blood Pressure Mean 110 Pulse Ox 96 Oxygen Delivery Method Room Air Room Air 06/01/23 20:53 06/01/23 21:00 06/01/23 22:00 Temperature Temperature Source Pulse Rate 58 L 67 56 L Respiratory Rate 12 12 14 Respiratory Effort Blood Pressure 151/84 H 119/58 L Blood Pressure Mean 105 74 Pulse Ox 92 91 92 Oxygen Delivery Method 06/01/23 23:00 Temperature Temperature Source Pulse Rate 67 Respiratory Rate 11 L Respiratory Effort Blood Pressure 119/58 L Blood Pressure Mean 78 Pulse Ox 97 Oxygen Delivery Method Room Air <Dr. Curtis Lancaster MD - Last Filed: 06/01/23 23:42> Physical Exam Const Vital Signs: 06/01/23 20:06 06/01/23 20:38 06/01/23 20:41 Temperature 97.9 F Temperature Source Temporal Pulse Rate 60 Respiratory Rate 18 Respiratory Effort Normal Non-Labored Blood Pressure 158/87 H Blood Pressure Mean 110 Pulse Ox 96 Oxygen Delivery Method Room Air Room Air 06/01/23 20:53 06/01/23 21:00 06/01/23 22:00 Temperature Temperature Source Pulse Rate 58 L 67 56 L Respiratory Rate 12 12 14 Respiratory Effort Blood Pressure 151/84 H 119/58 L Blood Pressure Mean 105 74 Pulse Ox 92 91 92 Oxygen Delivery Method 06/01/23 23:00 Temperature Temperature Source Pulse Rate 67 Respiratory Rate 11 L Respiratory Effort Blood Pressure 119/58 L Blood Pressure Mean 78 Pulse Ox 97 Oxygen Delivery Method Room Air MDM <DENZEL Purdy - Last Filed: 06/01/23 21:55> MDM MDM Narrative Medical decision making narrative: History gathered from: Patient and spouse While riding lawnmower patient had an episode of chest pressure, sweating, coughing and burping. He continues to have persistent chest pressure. He is sitting on the bedside in no distress. BP is 158/87 with otherwise normal vital signs. His exam is benign. He was treated with aspirin 325 mg. EKG is sinus bradycardia at 59 bpm with no acute ischemic changes. Overall CBC and BMP unremarkable. First troponin is 29 and 2-hour troponin is ordered. CXR shows no acute process. Lab Data Attestation: I reviewed the patient's lab results. Labs: Laboratory Results - last 24 hr 06/01/23 06/01/23 20:35 22:35 WBC 11.9 H RBC 4.33 L Hgb 13.6 Hct 40.4 MCV 93.3 MCH 31.4 MCHC 33.7 RDW Std Deviation 45.0 H RDW Coeff of Antonio 13.2 Plt Count 228 MPV 9.5 Immature Gran % (Auto) 0.500 Neut % (Auto) 63.2 Lymph % (Auto) 19.5 [place] % (Auto) 11.8 H Eos % (Auto) 4.2 Baso % (Auto) 0.8 Absolute Neuts (auto) 7.5 Absolute Lymphs (auto) 2.32 Nucleated RBC % 0 Sodium 137 Potassium 3.9 Chloride 106 Carbon Dioxide 27.0 Anion Gap 4 L BUN 18 Creatinine 1.10 Estim Creat Clear Calc 73.73 Est GFR (MDRD) Af Amer 82 Est GFR (MDRD) Non-Af 68 BUN/Creatinine Ratio 16.4 Glucose 153 H Calcium 9.1 Troponin I High Sens 29 968 H* Radiography Diagnostic Testing: Clinical Impression(s) from Imaging Studies Chest X-Ray 06/01/23 20:09 IMPRESSION: Normal x-ray examination of the chest. Electronically Signed: Bienvenido Long MD at 21:15 EDT , ED attending interpretation of 1-view chest x-ray shows cardiomegaly, no acute infiltrates edema or effusion. <Dr. Curtis Lancaster MD - Last Filed: 06/01/23 23:42> [facility] Narrative Medical decision making narrative: History gathered from: Patient and spouse While riding lawnmower patient had an episode of chest pressure, sweating, coughing and burping. He continues to have persistent chest pressure. He is sitting on the bedside in no distress. BP is 158/87 with otherwise normal vital signs. His exam is benign. He was treated with aspirin 325 mg. EKG is sinus bradycardia at 59 bpm with no acute ischemic changes. Overall CBC and BMP unremarkable. First troponin is 29 and 2-hour troponin is ordered. CXR shows no acute process. I have personally performed a face to face assessment of the patient and have reviewed the BELKIS Note. I performed a substantive portion of the visit including all aspects of the following. My amezquita findings include: History is remarkable for chest pressure with diaphoresis. 10 minutes before he developed the discomfort he and his lifted a heavy door. When this occurred he was on a riding mower. He became diaphoretic slightly short of breath pressure in his chest. He states he still has slight discomfort as of 20-30. He denies history of coronary disease. Does have history of hypertension for 20 years, hypercholesterolemia for 45 years and diabetes for 5. Patient denies orthopnea. He does have mild pedal edema which he was unaware of. He denies PND. He denies history of reflux or hiatal hernia. He denies black or maroon-colored stool. He denies fever, chills night sweats. He denies headache, visual, ocular auditory symptoms. The chest discomfort is mid chest does not radiate anywhere. He denies history of PE or DVT. He denies leg pain, swelling or discoloration. Exam is remarkable for a heavyset gentleman who appears in no distress. Very pleasant. Blood pressure is elevated. HEENT exam is unremarkable. Lungs are clear to auscultation. Heart is regular. Rate is normal. There is no murmur, gallop or rub. He has no reproducible chest pain. Is no crepitus subcutaneous air. Abdomen is soft nontender. There is no paraspinal megaly. Inspection of the back is normal. Patient's lower extremity exam reveals mild pitting edema. There is no asymmetry, discoloration, leg vein distention, palpable cords since on the distribution deep venous system. Medical Decision Making differential diagnosis is chest pain unknown etiology, n eed to evaluate cardiac versus noncardiac. Noncardiac would include GERD, pulmonary, peptic ulcer disease. His workup included EKG, chest x-ray and appropriate blood work. Other additions or changes: [None] Lab Data Lab results narrative: White count is slightly elevated with normal differential. This is nonspecific. Glucose is elevated 153 with normal CO2 anion gap. BUN and creatinine are normal. GFR is normal. First troponin is normal at 29. Labs: Laboratory Results - last 24 hr 06/01/23 06/01/23 20:35 22:35 WBC 11.9 H RBC 4.33 L Hgb 13.6 Hct 40.4 MCV 93.3 MCH 31.4 MCHC 33.7 RDW Std Deviation 45.0 H RDW Coeff of Antonio 13.2 Plt Count 228 MPV 9.5 Immature Gran % (Auto) 0.500 Neut % (Auto) 63.2 Lymph % (Auto) 19.5 Cottle % (Auto) 11.8 H Eos % (Auto) 4.2 Baso % (Auto) 0.8 Absolute Neuts (auto) 7.5 Absolute Lymphs (auto) 2.32 Nucleated RBC % 0 Sodium 137 Potassium 3.9 Chloride 106 Carbon Dioxide 27.0 Anion Gap 4 L BUN 18 Creatinine 1.10 Estim Creat Clear Calc 73.73 Est GFR (MDRD) Af Amer 82 Est GFR (MDRD) Non-Af 68 BUN/Creatinine Ratio 16.4 Glucose 153 H Calcium 9.1 Troponin I High Sens 29 968 H* Radiography Diagnostic Testing: Clinical Impression(s) from Imaging Studies Chest X-Ray 06/01/23 20:09 IMPRESSION: Normal x-ray examination of the chest. Electronically Signed: Bienvenido Long MD at 21:15 EDT , EKG Initial EKG: Attestation: I personally reviewed and interpreted this EKG as follows: Interpretation: Sinus Bradycardia (Rate is 59. OR interval is 200 ms. Cures duration 126 ms which is prolonged. He has a nonspecific intraventricular conduction delay. QT interval is 420 ms. [place] is normal) Treatment and Re-Evaluation :: Patient did receive aspirin. Will anticoag with heparin. Call hospitalist for admission. <Dr. Curtis Lancaster MD - Last Filed: 06/01/23 23:42> Critical Care Time Critical Care Time: Yes Critical care time (excluding procedures): 30-74 minutes (31), Including time spent: (History, physical, documentation, review of prior records), Discussing w/Patient &/or Family/Content Coordinator, Discussing w/Consultants and Arranging Admission or Transfer Discharge Plan Dx/Rx/DC Orders Clinical Impression: Non-ST elevation CT (NSTEMI), History of hypertension, History of hypercholesterolemia, Type 2 diabetes mellitus with hyperglycemia Disposition Disposition: Acute Care Hospital [facility]
[2023-06-01] MEDS: Aspirin 325 MG Tablet PO (20:37)
[2023-06-01 20:39] LABS: Absolute Lymphocyte Count 2.32 X10^3/uL (0.83-4.51); Absolute Neutrophil Count 7.5 X10^3/uL (2.0-7.7); Basophil% 0.8 % (0-1); Eosinophils% 4.2 % (0-5); Hematocrit 40.4 % (40-54); Hemoglobin 13.6 g/dL (13.0-16.5); Lymphocyte # 2.32 X10^3/ul (0.83-4.51); Lymphocyte % 19.5 % (19-41); Mean Corp Hgb Conc 33.7 g/dL (32-36); Mean Corpuscular Hgb 31.4 pg (27.0-32.0); Mean Corpuscular Volume 93.3 fL (80-94); Mean Platelet Vol. 9.5 fl (6.2-12.0); Monocyte# 1.41 X10^3/uL; Monocyte% 11.8 % (0-10); NRBC Flagged by Analyzer 0 % (0-5); Neutrophil # 7.51 X10^3/uL (2.7-7.7); Neutrophil % 63.2 % (47-70); Platelet Count 228 K/mm3 (150-450); RBC Distribution Width CV 13.2 % (11.6-14.6); Red Blood Count 4.33 M/mm3 (4.6-6.2); White Blood Count 11.9 K/mm3 (4.4-11.0)
[2023-06-01 20:53] VITALS: PULSE 58; RESP 12; O2SAT 92
[2023-06-01 20:58] LABS: Anion Gap 4 (5-15); BUN 18 mg/dL (7-18); BUN/Creat Ratio 16.4 RATIO (10-20); Calcium,Total 9.1 mg/dL (8.5-10.1); Chloride 106 mmol/L (98-107); EST Glomerular Filtration Rate 68 mL/min (>60); Est Glom Filt Rate - Afr Amer 82 mL/min (>60); Estimated Creatinine Clearance 73.73 ml/min; Glucose 153 mg/dL (74-106); Potassium 3.9 mmol/L (3.5-5.1); Sodium Level 137 mmol/L (136-145); Troponin-I HS (w/2H Reflex) 29 pg/mL (3.0-78.0)
[2023-06-01 21:00] VITALS: BP 151/84; PULSE 67; RESP 12; O2SAT 91
[2023-06-01 22:00] VITALS: BP 119/58; PULSE 56; RESP 14; O2SAT 92
[2023-06-01 22:36] LABS: Reflex Troponin-HS? (from REC) Y
[2023-06-01 23:00] VITALS: BP 119/58; PULSE 67; RESP 11; O2SAT 97
[2023-06-01 23:31] LABS: Troponin-I HS 968 pg/mL (3.0-78.0)
[2023-06-01 23:57] VITALS: BP 119/70; PULSE 75; RESP 16; TEMP 36.7; O2SAT 94
[2023-06-02] VITALS (13 sets, daily range): BP systolic 114–140; BP diastolic 64–96; PULSE 60–87; RESP 12–18; TEMP 36.3–36.6; O2SAT 92–96; BMI 34.2
[2023-06-02 00:03] LABS: International Normalized Ratio 1.1; Prothrombin Time (Protime)PT. 14.3 SECONDS (11.7-14.9)
[2023-06-02 00:04] LABS: Partial Thromboplast Time 24.2 Seconds (24.1-36.2)
[2023-06-02] MEDS: HEPARIN/D5w 25,000 UNITS 25,000 UNITS/250 ML IV.SOLN. 10 UNITS CONT INF (00:08)
[2023-06-02] MEDS: Heparin Injection (Vial) 5,000 UNIT/ML VIAL 4000 UNIT IV (00:08)
--- NOTE | 2023-06-02 00:08 | PCM.HP.STD ---
HPI - General General Date of Admission: 06/02/23 HPI Narrative CHAU BARRON, is a 82 M who presents to the hospital with an episode of chest pressure today. He was at home and lifted something heavy on the barn door and then was on his riding mower and when he finished all of his activity and he went inside the house his daughter commented that he did not look well and he started developing a midsternal chest pressure with no radiation. Denies any shortness of breath or lightheadedness with this episode. He presented to the ER and initial troponin was 29 but repeat troponin was almost the thousand, he states that his chest pressure has completely resolved. EKG in the ER was nonischemic. He normally takes aspirin however this was held secondary to a tooth implant procedure he had last week [facility] Medical History DM II (diabetes mellitus, type II), controlled HTN (hypertension) Hyperlipidemia Home Medications aspirin 81 mg tablet,delayed release 81 mg PO DAILY@0800 07/15/14 [History Last Taken Unknown] atorvastatin 40 mg tablet 40 mg PO QHS 07/15/14 [History Last Taken Unknown] coenzyme Q10 50 mg capsule (Co Q-10) 30 mg PO DAILY 07/15/14 [History Last Taken Unknown] metformin 500 mg tablet,extended release 24 hr 500 mg PO BID 07/15/14 [History Last Taken Unknown] niacinamide 500 mg tablet 500 mg PO DAILY 07/15/14 [History Last Taken Unknown] ascorbic acid (vitamin C) 1,000 mg tablet (C-1000) 1 g PO DAILY dietary supplement 06/02/23 [History Last Taken 06/01/23 12:00] chlorhexidine gluconate 0.12 % mouthwash 15 ml PO TID dental procedure 06/02/23 [History Last Taken 06/01/23 18:47] cholecalciferol (vitamin D3) 25 mcg (1,000 unit) capsule (Vitamin D3) 25 mcg PO DAILY dietary supplement 06/02/23 [History Last Taken 06/01/23] valsartan 80 mg tablet 80 mg PO DAILY high blood pressure 06/02/23 [History Last Taken 06/01/23 17:00] Allergy/AdvReac Type Severity Reaction Status Date / Time No Known Allergies Allergy Verified 06/01/23 20:08 Family History (Updated 06/02/23 @ 00:[address] Jerson Don MD) Other Heart disease Surgical History History of recent dental procedure Social History (Updated 06/02/23 @ 00:40 by Yani Aguilar) service: Yes Smoking Status: Never smoker ROS Constitutional Constitutional: Denies chills, fatigue, fever(s) or malaise Eyes Eyes: Denies blurry vision ENT HEENT: Denies headache(s) or nasal discharge Cardiovascular Cardiovascular: Reports chest pain; Denies dyspnea on exertion, lightheadedness or syncope Respiratory/Chest Respiratory/Chest: Denies cough, shortness of breath at rest or shortness of breath with exertion Gastrointestinal Gastrointestinal: Denies constipation, diarrhea, nausea or vomiting Genitourinary Genitourinary: Denies dysuria Neurologic Neurologic: Denies focal weakness, numbness or tremor(s) Psychiatric Psychiatric: Denies anxiety or depression Vital Signs Vital Signs Vital Signs: 06/01/23 20:06 06/01/23 20:38 06/01/23 20:41 Temperature 97.9 F Temperature Source Temporal Pulse Rate 60 Respiratory Rate 18 Respiratory Effort Normal Non-Labored Blood Pressure 158/87 H Blood Pressure Mean 110 Pulse Ox 96 Oxygen Delivery Method Room Air Room Air 06/01/23 20:53 06/01/23 21:00 06/01/23 22:00 Temperature Temperature Source Pulse Rate 58 L 67 56 L Respiratory Rate 12 12 14 Respiratory Effort Blood Pressure 151/84 H 119/58 L Blood Pressure Mean 105 74 Pulse Ox 92 91 92 Oxygen Delivery Method 06/01/23 23:00 06/01/23 23:57 06/02/23 00:00 Temperature 98.0 F Temperature Source Pulse Rate 67 75 72 Respiratory Rate 11 L 16 15 Respiratory Effort Blood Pressure 119/58 L 119/70 119/72 Blood Pressure Mean 78 86 87 Pulse Ox 97 94 93 Oxygen Delivery Method Room Air Room Air Weight Weight: 275 lb 8 oz Body Mass Index (BMI) 34.4 Physical Exam Narrative General: Alert, Oriented x3, Cooperative, No apparent distress HEENT: Atraumatic, PERRLA, EOMI, Normocephalic Oral: Moist Mucosa Neck: Supple, No JVD Lungs: Diminished, Normal air movement, No rhonchi, No wheeze, No rales Cardiovascular: Regular rate, Regular Rhythm, Normal S1, Normal S2, No murmurs Abdomen: Soft, Non Tender, Non-Distended, No Hepato-splenomegaly Extremities: No edema, Capillary Refill Less than 3 Seconds Skin: No rashes, No breakdown Musculoskeletal: No Tenderness to Palpation of Joints or Extremities Neurological: No focal neurological deficits, Motor Exam 5/5 strength throughout, Sensory exam intact to light touch and pain Psych/Mental Status: Normal Affect, Appropriate Results Lab / Micro Data 06/01/23 20:35 06/01/23 20:35 Labs: Laboratory Results - last 24 hr 06/01/23 20:35: WBC 11.9 H, RBC 4.33 L, Hgb 13.6, Hct 40.4, MCV 93.3, MCH 31.4, MCHC 33.7, RDW Std Deviation 45.0 H, RDW Coeff of Antonio 13.2, Plt Count 228, MPV 9.5, Immature Gran % (Auto) 0.500, Neut % (Auto) 63.2, Lymph % (Auto) 19.5, [place] % (Auto) 11.8 H, Eos % (Auto) 4.2, Baso % (Auto) 0.8, Absolute Neuts (auto) 7.5, Absolute Lymphs (auto) 2.32, Nucleated RBC % 0, Sodium 137, Potassium 3.9, Chloride 106, Carbon Dioxide 27.0, Anion Gap 4 L, BUN 18, Creatinine 1.10, Estim Creat Clear Calc 73.73, Est GFR (MDRD) Af Amer 82, Est GFR (MDRD) Non-Af 68, BUN/Creatinine Ratio 16.4, Glucose 153 H, Calcium 9.1, Troponin I High Sens 29 06/01/23 22:35: Troponin I High Sens 968 H* 06/01/23 23:39: PT 14.3, INR 1.1, APTT 24.2 Imaging Radiology Impression Chest X-Ray 06/01/23 20:09 IMPRESSION: Normal x-ray examination of the chest. Electronically Signed: Bienvenido Long MD at 21:15 EDT , Assessment & Plan Assessment/Plan (1) Non-ST elevation [place] (NSTEMI): PLAN: Plan 1. Non-STEMI/HLD ? Will start him on a heparin drip ? Will continue with aspirin and Lipitor ? Will consult cardiology ? Will obtain an echo in the morning 2. DM2 ? Will hold his home metformin ? Will place him on Accu-Cheks and the sign scale insulin ? Will monitor and make adjustments as necessary DVT: Heparin drip 76 minutes was spent on direct patient care, including documentation as well as chart review and collaboration with colleagues Charges/Coding Visit Charges Inpatient E&M: 42448 Init Hosp L3
--- NOTE | 2023-06-02 00:29 | ECHOCS_ITS ---
Reason For Study: CAD/ASHD Procedure This was a 2D Doppler, Color Flow transthoracic echocardiogram. The study was technically difficult. Contrast injection was performed. Exam performed portable in patient room. Left Ventricle Normal LV size. Mild concentric left ventricular hypertrophy. Left ventricular systolic function is normal. The estimated ejection fraction is 60 %. No evidence for diastolic dysfunction. No regional wall motion abnormalities noted. Right Ventricle Normal right ventricle. Normal systolic function. Atria Normal left atrium. Normal right atrium. Bubble contrast study negative for right to left interatrial shunt. Mitral Valve There is Moderate focal posterior mitral annular calcification. Mild (1+) mitral valve insufficiency. Tricuspid Valve Normal tricuspid valve. Trivial tricuspid valve insufficiency. Unable to estimate RV systolic pressure due to insufficient tricuspid regurgitant envelope. Aortic Valve Trisinus/trileaflet aortic valve. Mild focal aortic valve calcification. Mild focal aortic valve thickening. Aortic sclerosis, no stenosis. Pulmonic Valve Normal pulmonic valve. Great Vessels Normal aortic root. Pericardium/Pleural No pericardial effusion. Medication Diluted definity 2ml given slow IV push to enhance endocardial definition. Performed a rapid injection of agitated mix of 9 cc saline and 1cc air to assess for atrial septal defect. MMode/2D Measurements & Calculations LVIDd: 4.3 cm IVSd: 1.3 cm LVOT diam: 2.4 cm LVIDs: 3.4 cm LVPWd: 1.1 cm FS: 21.7 % LVOT area: 4.7 cm2 Ao root diam: 3.9 cm LAV(MOD-bp): 70.0 ml LVAd ap4: 39.9 cm2 LA dimension: 4.4 cm LAV(MOD-bp) Indexed: 27.9 ml/m2 LVLd ap4: 8.9 cm LAV(MOD-sp2): 75.3 ml EDV(MOD-sp4): 144.9 ml LAV(MOD-sp4): 56.4 ml EDV(sp4-el): 152.0 ml LVAs ap4: 23.4 cm2 LVLs ap4: 7.4 cm ESV(MOD-sp4): 59.9 ml ESV(sp4-el): 63.0 ml EF(MOD-sp4): 58.7 % EF(sp4-el): 58.5 % SV(MOD-sp4): 85.0 ml SV(sp4-el): 89.0 ml LA A4 area: 19.4 cm2 RA A4 area: 18.2 cm2 TAPSE: 2.0 cm Time Measurements MV dec time: 0.29 sec Doppler Measurements & Calculations MV E max antoni: 78.3 cm/sec Lat Peak E' Antoni: 7.3 cm/sec Med Peak E' Antoni: 5.8 cm/sec MV A max antoni: 122.0 cm/sec E/E' lat: 10.7 E/E' med: 13.5 MV E/A: 0.64 MV V2 max: 120.4 cm/sec MV P1/2t max antoni: 82.6 cm/sec Ao V2 max: 181.3 cm/sec MV max P.8 mmHg MV P1/2t: 93.4 msec Ao max P.2 mmHg MV V2 mean: 55.8 cm/sec MV dec slope: 259.1 cm/sec2 Ao V2 mean: 127.7 cm/sec MV mean P.5 mmHg MVA(P1/2t): 2.4 cm2 Ao mean P.4 mmHg MV V2 VTI: 34.6 cm Ao V2 VTI: 40.6 cm MVA(VTI): 2.7 cm2 AV (velocity ratio): 0.50 BERTHA(I,D): 2.3 cm2 BERTHA(V,D): 2.2 cm2 LV V1 max: 83.8 cm/sec SV(LVOT): 94.4 ml PA V2 max: 71.5 cm/sec LV V1 max P.8 mmHg PA V2 mean: 54.1 cm/sec LV V1 mean P.6 mmHg LV V1 mean: 59.6 cm/sec LV V1 VTI: 20.1 cm ECHO/Echo Complete W/ Contrast Interpretation Summary The estimated ejection fraction is 60 %. No evidence for diastolic dysfunction. Mild concentric left ventricular hypertrophy. There is Moderate focal posterior mitral annular calcification. Mild (1+) mitral valve insufficiency. Aortic sclerosis, no stenosis. Contrast injection was performed. Ordering Physician: Jerson Don Performed By: Jacek Bob RCS
[2023-06-02 04:37] LABS: Absolute Lymphocyte Count 2.18 X10^3/uL (0.83-4.51); Absolute Neutrophil Count 7.1 X10^3/uL (2.0-7.7); Basophil# 0.07 X10^3/uL; Basophil% 0.6 % (0-1); Eosinophil# 0.31 X10^3/uL; Eosinophils% 2.8 % (0-5); Hematocrit 38.1 % (40-54); Hemoglobin 12.7 g/dL (13.0-16.5); Lymphocyte # 2.18 X10^3/ul (0.83-4.51); Lymphocyte % 19.8 % (19-41); Mean Corp Hgb Conc 33.3 g/dL (32-36); Mean Corpuscular Hgb 31.1 pg (27.0-32.0); Mean Corpuscular Volume 93.2 fL (80-94); Mean Platelet Vol. 9.7 fl (6.2-12.0); Monocyte# 1.29 X10^3/uL; Monocyte% 11.7 % (0-10); NRBC Flagged by Analyzer 0 % (0-5); Neutrophil # 7.09 X10^3/uL (2.7-7.7); Neutrophil % 64.6 % (47-70); Platelet Count 210 K/mm3 (150-450); RBC Distribution Width CV 13.2 % (11.6-14.6); RBC Distribution Width SD 44.9 fl (35.1-43.9); Red Blood Count 4.09 M/mm3 (4.6-6.2)
[2023-06-02 05:09] LABS: Anion Gap 7 (5-15); BUN 16 mg/dL (7-18); BUN/Creat Ratio 17.4 RATIO (10-20); Chloride 109 mmol/L (98-107); Creatinine, Serum 0.92 mg/dL (0.70-1.30); EST Glomerular Filtration Rate 84 mL/min (>60); Est Glom Filt Rate - Afr Amer 102 mL/min (>60); Estimated Creatinine Clearance 87.89 ml/min; Glucose 128 mg/dL (74-106); Potassium 3.9 mmol/L (3.5-5.1); Sodium Level 139 mmol/L (136-145)
[2023-06-02 05:11] LABS: Troponin-I HS 22942 pg/mL (3.0-78.0)
[2023-06-02] MEDS: Aspirin E.C. 81 MG Tablet PO (06:35)
[2023-06-02 06:53] LABS: Bedside Glucose 136 mg/dL (74-106)
[2023-06-02 06:57] LABS: Partial Thromboplast Time 39.4 Seconds (24.1-36.2)
[2023-06-02] MEDS: Heparin Injection (Vial) 5,000 UNIT/ML VIAL IV (07:45)
--- NOTE | 2023-06-02 09:30 | PCM.CONS.C ---
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 His pressure was not as significant when he arrived in the ER. He does have a hx of hypertension, hyperlipidemia and diabetes. EKG demonstrated Sinus selwyn with PACs, non specific intra ventricular conduction block. Troponins trended 29/968/77720. He was admitted to PCU for a NSTEMI. [facility] Medical History DM II (diabetes mellitus, type II), controlled HTN (hypertension) Hyperlipidemia Home Medications aspirin 81 mg tablet,delayed release 81 mg PO DAILY@0800 07/15/14 [History Last Taken Unknown] atorvastatin 40 mg tablet 40 mg PO QHS 07/15/14 [History Last Taken Unknown] coenzyme Q10 50 mg capsule (Co Q-10) 30 mg PO DAILY 07/15/14 [History Last Taken Unknown] metformin 500 mg tablet,extended release 24 hr 500 mg PO BID 07/15/14 [History Last Taken Unknown] niacinamide 500 mg tablet 500 mg PO DAILY 07/15/14 [History Last Taken Unknown] ascorbic acid (vitamin C) 1,000 mg tablet (C-1000) 1 g PO DAILY dietary supplement 06/02/23 [History Last Taken 06/01/23 12:00] chlorhexidine gluconate 0.12 % mouthwash 15 ml PO TID dental procedure 06/02/23 [History Last Taken 06/01/23 18:47] cholecalciferol (vitamin D3) 25 mcg (1,000 unit) capsule (Vitamin D3) 25 mcg PO DAILY dietary supplement 06/02/23 [History Last Taken 06/01/23] valsartan 80 mg tablet 80 mg PO DAILY high blood pressure 06/02/23 [History Last Taken 06/01/23 17:00] Allergy/AdvReac Type Severity Reaction Status Date / Time No Known Allergies Allergy Verified 06/01/23 20:08 Family History (Updated 06/02/23 @ 00:[address] Jerson Don MD) Other Heart disease Surgical History History of recent dental procedure Social History (Updated 06/02/23 @ 00:40 by Yani Aguilar) service: Yes Smoking Status: Never smoker ROS Constitutional Constitutional: Denies chills, fatigue, fever(s) or malaise Eyes Eyes: Denies blurry vision ENT HEENT: Denies headache(s) or nasal discharge Cardiovascular Cardiovascular: Reports chest pain; Denies dyspnea on exertion, lightheadedness or syncope Respiratory/Chest Respiratory/Chest: Denies cough, shortness of breath at rest or shortness of breath with exertion Gastrointestinal Gastrointestinal: Denies constipation, diarrhea, nausea or vomiting Genitourinary Genitourinary: Denies dysuria Neurologic Neurologic: Denies focal weakness, numbness or tremor(s) Physical Exam Narrative General: Alert, Oriented x3, Cooperative, No apparent distress HEENT: Atraumatic, PERRLA, EOMI, Normocephalic Oral: Moist Mucosa Neck: Supple, No JVD Lungs: Diminished, Normal air movement, No rhonchi, No wheeze, No rales Cardiovascular: Regular rate, Regular Rhythm, Normal S1, Normal S2, No murmurs Abdomen: Soft, Non Tender, Non-Distended, No Hepato-splenomegaly Extremities: No edema, Capillary Refill Less than 3 Seconds Skin: No rashes, No breakdown Musculoskeletal: No Tenderness to Palpation of Joints or Extremities Neurological: No focal neurological deficits, Motor Exam 5/5 strength throughout, Sensory exam intact to light touch and pain Psych/Mental Status: Normal Affect, Appropriate Risk Stratification Risk Stratification Applicable: Yes Age >/= 65: Yes >/= 3 CAD Risk Factors (HTN, HLD, DM, family hx of CAD, or current smoker): Yes Aspirin Use in the Past 7 Days: No Severe Angina (>/= episodes in 24 hours): Yes EKG ST Changes >/= 0.5mm: No Positive Cardiac Marker: Yes JIMMY Risk Stratification Score: 4 JIMMY % Risk: 20% Risk Objective Data Vital Signs: Vital Signs Temp Pulse Resp BP Pulse Ox O2 Del Method 97.6 F L 61 16 119/64 95 Room Air 06/02/23 07:51 06/02/23 07:51 06/02/23 07:51 06/02/23 07:51 06/02/23 07:51 06/02/23 07:51 Oxygen Delivery Method Room Air Weight: 273 lb 13.026 oz Body Mass Index (BMI) 34.2 Intake & Output: Intake and Output for Last 24 Hours 05/31/23 06/01/23 06/02/23 23:59 23:59 23:59 Intake Total 76.17 / 76.17 Balance 76.17 / 76.17 Lab / Micro Data 06/02/23 04:31 06/02/23 04:31 Labs: Laboratory Results - last 24 hr 06/01/23 20:35: WBC 11.9 H, RBC 4.33 L, Hgb 13.6, Hct 40.4, MCV 93.3, MCH 31.4, MCHC 33.7, RDW Std Deviation 45.0 H, RDW Coeff of Antonio 13.2, Plt Count 228, MPV 9.5, Immature Gran % (Auto) 0.500, Neut % (Auto) 63.2, Lymph % (Auto) 19.5, Hunt % (Auto) 11.8 H, Eos % (Auto) 4.2, Baso % (Auto) 0.8, Absolute Neuts (auto) 7.5, Absolute Lymphs (auto) 2.32, Nucleated RBC % 0, Sodium 137, Potassium 3.9, Chloride 106, Carbon Dioxide 27.0, Anion Gap 4 L, BUN 18, Creatinine 1.10, Estim Creat Clear Calc 73.73, Est GFR (MDRD) Af Amer 82, Est GFR (MDRD) Non-Af 68, BUN/Creatinine Ratio 16.4, Glucose 153 H, Calcium 9.1, Troponin I High Sens 29 06/01/23 22:35: Troponin I High Sens 968 H* 06/01/23 23:39: PT 14.3, INR 1.1, APTT 24.2 06/02/23 04:31: WBC 11.0, RBC 4.09 L, Hgb 12.7 L, Hct 38.1 L, MCV 93.2, MCH 31.1, MCHC 33.3, RDW Std Deviation 44.9 H, RDW Coeff of Antonio 13.2, Plt Count 210, MPV 9.7, Immature Gran % (Auto) 0.500, Neut % (Auto) 64.6, Lymph % (Auto) 19.8, Hunt % (Auto) 11.7 H, Eos % (Auto) 2.8, Baso % (Auto) 0.6, Absolute Neuts (auto) 7.1, Absolute Lymphs (auto) 2.18, Nucleated RBC % 0, Sodium 139, Potassium 3.9, Chloride 109 H, Carbon Dioxide 23.0, Anion Gap 7, BUN 16, Creatinine 0.92, Estim Creat Clear Calc 87.89, Est GFR (MDRD) Af Amer 102, Est GFR (MDRD) Non-Af 84, BUN/Creatinine Ratio 17.4, Glucose 128 H, Calcium 9.0, Troponin I High Sens 74685 H* 06/02/23 06:23: APTT 39.4 H, POC Glucose 136 H Cardiology Labs/Tests 06/01/23 20:35: WBC 11.9 H, RBC 4.33 L, Hgb 13.6, Hct 40.4, MCV 93.3, MCH 31.4, MCHC 33.7, Plt Count 228, MPV 9.5, Immature Gran % (Auto) 0.500, Neut % (Auto) 63.2, Lymph % (Auto) 19.5, Hunt % (Auto) 11.8 H, Eos % (Auto) 4.2, Baso % (Auto) 0.8, Absolute Neuts (auto) 7.5, Nucleated RBC % 0, Sodium 137, Potassium 3.9, Chloride 106, Carbon Dioxide 27.0, Anion Gap 4 L, BUN 18, Creatinine 1.10, Est GFR (MDRD) Af Amer 82, Est GFR (MDRD) Non-Af 68, BUN/Creatinine Ratio 16.4, Glucose 153 H, Calcium 9.1 06/01/23 23:39: PT 14.3, INR 1.1, APTT 24.2 06/02/23 04:31: WBC 11.0, RBC 4.09 L, Hgb 12.7 L, Hct 38.1 L, MCV 93.2, MCH 31.1, MCHC 33.3, Plt Count 210, MPV 9.7, Immature Gran % (Auto) 0.500, Neut % (Auto) 64.6, Lymph % (Auto) 19.8, Hunt % (Auto) 11.7 H, Eos % (Auto) 2.8, Baso % (Auto) 0.6, Absolute Neuts (auto) 7.1, Nucleated RBC % 0, Sodium 139, Potassium 3.9, Chloride 109 H, Carbon Dioxide 23.0, Anion Gap 7, BUN 16, Creatinine 0.92, Est GFR (MDRD) Af Amer 102, Est GFR (MDRD) Non-Af 84, BUN/Creatinine Ratio 17.4, Glucose 128 H, Calcium 9.0 06/02/23 06:23: APTT 39.4 H Rhythm: EKG: ECHO: Radiography Diagnostic Testing: Radiology Impression Chest X-Ray 06/01/23 20:09 IMPRESSION: Normal x-ray examination of the chest. Electronically Signed: Bienvenido Long MD at 21:15 EDT , Documented by User: Dr. Mercy Santos MD 06/02/23 11:45 Assessment & Plan Assessment/Plan (1) Non-ST elevation TN (NSTEMI): (2) History of hypertension: (3) History of hypercholesterolemia: (4) Type 2 diabetes mellitus with hyperglycemia: PLAN: Cardiac care plan recommendations; 82-year-old patient history of diabetes mellitus, hypertension, hyperlipidemia Presented with severe retrosternal chest heaviness last night Has a clinical diagnosis of non-ST elevation TN with significant elevated cardiac biomarker with high sensitive troponins. Renal function was normal Echocardiographic evaluation LV function preserved Based on clinical presentation he was taken early to the Earth Science Teacher. Approach was from the right radial artery approach Cardiac catheterization revealed the culprit lesion is a large dominant RCA with a thrombus proximally calcified vessel Also patient has a distal left main with a good distal target for the left circumflex ramus as well as the LAD and the diagonal branches Patient remained stable clinically I discussed cardiac catheterization finding with the patient and as well as with the cardiovascular surgeon Dr.Nkem Peterson Patient will be transferred to [facility] for evaluation of bypass surgery. Will resume the treatment with heparin aspirin statin. No beta-silvano as she has a along both upper around 3.82-second on the playground monitor since then he remained stable. With no further pauses Also had a new onset atrial fibrillation. HPI Consult Data Date of Consult: 06/02/23 [facility] Medical History DM II (diabetes mellitus, type II), controlled HTN (hypertension) Hyperlipidemia Home Medications aspirin 81 mg tablet,delayed release 81 mg PO DAILY@0800 07/15/14 [History Last Taken Unknown] atorvastatin 40 mg tablet 40 mg PO QHS 07/15/14 [History Last Taken Unknown] coenzyme Q10 50 mg capsule (Co Q-10) 30 mg PO DAILY 07/15/14 [History Last Taken Unknown] metformin 500 mg tablet,extended release 24 hr 500 mg PO BID 07/15/14 [History Last Taken Unknown] niacinamide 500 mg tablet 500 mg PO DAILY 07/15/14 [History Last Taken Unknown] ascorbic acid (vitamin C) 1,000 mg tablet (C-1000) 1 g PO DAILY dietary supplement 06/02/23 [History Last Taken 06/01/23 12:00] chlorhexidine gluconate 0.12 % mouthwash 15 ml PO TID dental procedure 06/02/23 [History Last Taken 06/01/23 18:47] cholecalciferol (vitamin D3) 25 mcg (1,000 unit) capsule (Vitamin D3) 25 mcg PO DAILY dietary supplement 06/02/23 [History Last Taken 06/01/23] valsartan 80 mg tablet 80 mg PO DAILY high blood pressure 06/02/23 [History Last Taken 06/01/23 17:00] Allergy/AdvReac Type Severity Reaction Status Date / Time No Known Allergies Allergy Verified 06/01/23 20:08 Family History (Updated 06/02/23 @ 00:[address] Jerson Don MD) Other Heart disease Surgical History History of recent dental procedure Social History (Updated 06/02/23 @ 00:40 by Yani Aguilar) service: Yes Smoking Status: Never smoker Risk Stratification Age >/= 65: Yes JIMMY Risk Stratification Score: 4 JIMMY % Risk: 20% Risk Lab / Micro Data 06/02/23 04:31 06/02/23 04:31
[2023-06-02 10:06] LABS: Thyroid Stim Hormone (TSH) 3.96 uIU/mL (0.358-3.74)
--- NOTE | 2023-06-02 11:31 | PRO.PCM_ITS ---
Procedure Report Date of Procedure: 06/02/23 Cardiac catheterization report 1. Moderate sedation 2. Selective left coronary angiography 3. Selective right coronary angiography. 4. Placement of TR band to close the right radial artery arteriotomy site. Preprocedure diagnosis 82-year-old patient presented to ER at [facility] complaining of severe heaviness in the chest evidently this happened last night around 8 PM Patient evaluated by EKG Cardiac enzymes significant elevated Had a history of hypertension, hyperlipidemia and diabetes mellitus. 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 Consent; Risk and benefits of the procedure explained in detail to the patient, informed consent obtained and placed in the chart Diagnostic catheter used 1. 6 Palauan sheaths placed in the right radial artery 2. 5 Palauan JL 3.5 3. 5 Palauan JR4 Procedure in detail; Patient brought to the optical laboratory mechanic in fasting state Right radial artery area prepped and draped in the usual sterile fashion Will proceed with access to the right radial artery A cocktail of verapamil, heparin as well as nitroglycerin was given through the sheath. Then we will proceed with a diagnostic catheter 5 Palauan JL 3.5 advanced sending aorta cannulated the left main without difficulty. Multiple views the left coronary system were obtained. Following this catheter exchanged for 5 Palauan JR4 selective angiographic right Cholestin were obtained. Coronary angiographic findings; 1. Left main calcified, distal left main had 60-70% stenosis Left main bifurcating into LAD ramus and left circumflex 2. Left anterior descending artery ostial and proximal LAD had around 70% stenosis The mid LAD had around 6070 Pharris diagonal large And the LAD as well as a large in the distal portion of the LAD had significant maybe around 95% stenosis Left circumflex ostial around 670% stenosis 5. RCA large dominant, calcified with proximal RCA thrombus JIMMY-3 flow in the RCA with good distal targets Conclusion recommendation 82-year-old patient with history of diabetes mellitus, hypertension, hyperlipidemia, presented with chest pain, described as heaviness in the chest with the diaphoresis. This happened last night around 8 PM. Clinical diagnosis of non-ST elevation MT started on medical therapy symptoms of chest pain pressure and heaviness resolved and has been stable hemodynamically. Patient has the culprit lesion proximal RCA with a thrombus. 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 Patient tolerated the procedure well all with no complication in the Resistance Brazer. Will resume heparin aspirin statin following the radial sheath removal and maintaining hemostasis to the right radial artery arteriotomy site. Discussed the case with the cardiovascular surgeon at [facility] Dr. Reta Peterson, will transfer the patient for CABG evaluation. Patient tolerated procedure very well with no complication in the Resistance Brazer. Mercy Santos MD,FACC,[facility]
--- NOTE | 2023-06-02 11:41 | CASEMGMT ---
Tertiary facilities in-network with patient's insurance: [facility], [facility], [place], , [facility], [facility], [facility], [facility], [place]
[2023-06-02 12:24] LABS: Bedside Glucose 123 mg/dL (74-106)
--- NOTE | 2023-06-02 13:52 | DCINST_ITS ---
Discharge Instructions Follow Up Care Test Results: Test results from this visit will be discussed in further detail at your follow- up appointment, if applicable. Discharge Plan Admission Admit Date/Time: 06/02/23 00:05 Primary Reason for Your Visit: NSTEMI Attending Provider: Isidro Tirado Primary Care Provider: Estrada Ford Consulting Providers: Jerson Don; Mercy Santos Discharge Orders/Prescriptions Prescriptions: Continued atorvastatin 40 MG tablet 40 mg PO QHS aspirin 81 MG tablet 81 mg PO DAILY@0800 coenzyme Q10 [Co Q-10] 50 MG capsule 30 mg PO DAILY niacinamide 500 MG tablet 500 mg PO DAILY metformin 500 MG tablet extended release 24 hr 500 mg PO BID Patient Comments: cholecalciferol (vitamin D3) [Vitamin D3] 25 mcg (1,000 unit) capsule 25 mcg PO DAILY ascorbic acid (vitamin C) [C-1000] 1,000 mg tablet 1 g PO DAILY Held valsartan 80 mg tablet 80 mg PO DAILY Hold Instructions: Resume on 06/12/23. Discontinued chlorhexidine gluconate 0.12 % mouthwash 15 ml PO TID Referrals / Follow Up: Estrada Ford MD [Primary Care Provider] - Disposition Disposition (needs filled in before D/C Order can be placed): Acute Care Hospital
--- NOTE | 2023-06-02 13:54 | PCM.DC.SUM ---
Providers Date of Admission: 06/02/23 Date of Discharge: 06/02/23 Primary Care Physician: Dr. Estrada Ford MD Consultations 06/02/23 00:29 Consult: Cardiology Routine Consulting Provider: Mercy Santos Reason for Consult: Non-STEMI EMERGENT Consult: No MD Notified: Yes Date Notified: 06/02/23 Time Notified: 00:07 Method of Notification: Verbal Reason For Visit: NON-STEMI Diagnosis Discharge Diagnosis (1) Non-ST elevation PR (NSTEMI): Status: Acute Code(s): I21.4 - Non-ST elevation (NSTEMI) myocardial infarction (2) History of hypertension: Status: Acute Code(s): Z86.79 - Personal history of other diseases of the circulatory system (3) History of hypercholesterolemia: Status: Acute Code(s): Z86.39 - Personal history of other endocrine, nutritional and metabolic disease (4) Type 2 diabetes mellitus with hyperglycemia: Status: Acute Code(s): E11.65 - Type 2 diabetes mellitus with hyperglycemia Medications at Discharge Home Medications aspirin 81 mg tablet,delayed release 81 mg PO DAILY@0800 07/15/14 atorvastatin 40 mg tablet 40 mg PO QHS 07/15/14 coenzyme Q10 50 mg capsule (Co Q-10) 30 mg PO DAILY 07/15/14 metformin 500 mg tablet,extended release 24 hr 500 mg PO BID 07/15/14 niacinamide 500 mg tablet 500 mg PO DAILY 07/15/14 ascorbic acid (vitamin C) 1,000 mg tablet (C-1000) 1 g PO DAILY dietary supplement 06/02/23 cholecalciferol (vitamin D3) 25 mcg (1,000 unit) capsule (Vitamin D3) 25 mcg PO DAILY dietary supplement 06/02/23 valsartan 80 mg tablet 80 mg PO DAILY high blood pressure 06/02/23 Hospital Course Operations None Procedures Cardiac catheterization, EKG and - (Chest x-ray) Summary of Care Provided Minutes Spent on Discharge: 35 Hospital Course: Patient is an 82-year-old male who presented [facility] ED on the evening of 06/01/2023 with chest pain. Short hospital course as noted below. Patient was transferred to [facility] on afternoon of 06/01 for CABG evaluation. 1. NSTEMI Presented after an episode of chest pressure while lifting something heavy at home. Chest pain had largely resolved by the time he arrived to the ED. EKG showed sinus bradycardia with PACs, nonspecific intraventricular conduction block, no other ST changes. However, troponin trend 29 > 968 > 43830. ? Cardiology followed. S/p left heart cath on 06/01 showed severe multivessel disease involving the distal left main and bifurcation of LAD and circumflex. No stents placed. Recommendation from cardiology was for transfer to [facility] for CABG evaluation. Transferred in stable condition on afternoon of 06/01. Continued heparin drip, aspirin, statin on discharge. 2. New onset A-fib ? Cardiology noted new onset A-fib during and shortly after heart catheterization on 06/01. Recommended continuation of anticoagulation going forward. Was rate controlled, no need for beta-anthony for now. Chronic medical conditions: ? Obesity: BMI 34 on admit. Complicated hospital course, care and prognosis. ? Hyperlipidemia: Recent lipid panel on 04/24/2023 showed total cholesterol 128, LDL 50, HDL 40. Continue atorvastatin 40 mg daily. ? Hypertension: Stable post cath. Okay to continue home valsartan. ? Type 2 diabetes mellitus: Home regimen of metformin 500 mg twice daily. Recent A1c 6.9% on 04/23. Treated with sliding scale insulin while inpatient here. Total clinical time spent by myself addressing the patient's medical issues, reviewing all the data, and collaborating with patient's care team: 35 minutes. Physical Exam Const alert, oriented x3 and no apparent distress General Appearance: cooperative and comfortable HEENT normocephalic, head/scalp atraumatic, hearing grossly normal bilaterally, nasal mucous membranes and turbinates normal and moist oral mucous membranes Eyes PERRL, EOMs intact bilaterally and conjunctivae normal Neck full ROM Chest inspection of chest normal Resp normal respiratory effort, normal air movement, no use of accessory muscles and clear to auscultation bilaterally Cardio regular rate, regular rhythm, no murmurs and peripheral pulses 2+ throughout GI normal to inspection, nondistended, normoactive bowel sounds, soft to palpation, non-tender and non-distended Back/Spine normal ROM Extremity normal to inspection, full ROM and no pedal edema Skin no rashes or lesions noted Neuro no focal motor deficits and no sensory deficits noted Speech: speech normal Psych mental status grossly normal Weight / BMI Weight Weight: 124.2 kg Body Mass Index (BMI) 34.2 ABG / Lab / Microbiology Data 06/02/23 04:31 06/02/23 04:31 Laboratory: Laboratory Results - last 24 hr 06/01/23 20:35: WBC 11.9 H, RBC 4.33 L, Hgb 13.6, Hct 40.4, MCV 93.3, MCH 31.4, MCHC 33.7, RDW Std Deviation 45.0 H, RDW Coeff of Antonio 13.2, Plt Count 228, MPV 9.5, Immature Gran % (Auto) 0.500, Neut % (Auto) 63.2, Lymph % (Auto) 19.5, [place] % (Auto) 11.8 H, Eos % (Auto) 4.2, Baso % (Auto) 0.8, Absolute Neuts (auto) 7.5, Absolute Lymphs (auto) 2.32, Nucleated RBC % 0, Sodium 137, Potassium 3.9, Chloride 106, Carbon Dioxide 27.0, Anion Gap 4 L, BUN 18, Creatinine 1.10, Estim Creat Clear Calc 73.73, Est GFR (MDRD) Af Amer 82, Est GFR (MDRD) Non-Af 68, BUN/Creatinine Ratio 16.4, Glucose 153 H, Calcium 9.1, Troponin I High Sens 29 06/01/23 22:35: Troponin I High Sens 968 H* 06/01/23 23:39: PT 14.3, INR 1.1, APTT 24.2 06/02/23 04:31: WBC 11.0, RBC 4.09 L, Hgb 12.7 L, Hct 38.1 L, MCV 93.2, MCH 31.1, MCHC 33.3, RDW Std Deviation 44.9 H, RDW Coeff of Antonio 13.2, Plt Count 210, MPV 9.7, Immature Gran % (Auto) 0.500, Neut % (Auto) 64.6, Lymph % (Auto) 19.8, [place] % (Auto) 11.7 H, Eos % (Auto) 2.8, Baso % (Auto) 0.6, Absolute Neuts (auto) 7.1, Absolute Lymphs (auto) 2.18, Nucleated RBC % 0, Sodium 139, Potassium 3.9, Chloride 109 H, Carbon Dioxide 23.0, Anion Gap 7, BUN 16, Creatinine 0.92, Estim Creat Clear Calc 87.89, Est GFR (MDRD) Af Amer 102, Est GFR (MDRD) Non-Af 84, BUN/Creatinine Ratio 17.4, Glucose 128 H, Calcium 9.0, Troponin I High Sens 11938 H*, TSH 3.96 H 06/02/23 06:23: APTT 39.4 H, POC Glucose 136 H 06/02/23 12:06: POC Glucose 123 H Radiography Diagnostic Testing: Radiology Impression Chest X-Ray 06/01/23 20:09 IMPRESSION: Normal x-ray examination of the chest. Electronically Signed: Bienvenido Long MD at 21:15 EDT , Meaningful Use Info Meaningful Use Meaningful Use Diagnoses (Choose all that apply): AMI AMI/Post PCI/Angioplasty Aspirin given w/in 24hrs of arrival?: Yes ASA at discharge?: Yes Statins at discharge?: Yes José Luis/ARB at discharge?: Yes Beta Anthony at discharge?: No Reason Beta Anthony not ordered:: Hypotension Done w/ Acute PR measure.: Yes Ischemic Stroke Statin Dosing Therapy Reference: STATIN DOSE THERAPY REFERENCE: * Patients > 75 years receive moderate or high dose statin therapy. * Patients 75 years or YOUNGER should receive HIGH intensity statin dose unless contraindicated. You will be required to document reason for non-treatment if statin daily dose does not meet guidelines. HIGH DOSE STATIN THERAPY DAILY Atorvastatin > than or = to 40 mg Rosuvastatin > than or = to 20 mg Amlodipine + Atorvastatin > than or = to 2.5/40 mg Ezetimibe + Simvastatin 10/80 mg Simvastatin 80mg Discharge Plan Admission Admit Date/Time: 06/02/23 00:05 Primary Reason for Your Visit: NSTEMI Attending Provider: Isidro Tirado Primary Care Provider: Estrada Ford Consulting Providers: Jerson Don; Mercy Santos Discharge Orders/Prescriptions Prescriptions: Continued atorvastatin 40 MG tablet 40 mg PO QHS aspirin 81 MG tablet 81 mg PO DAILY@0800 coenzyme Q10 [Co Q-10] 50 MG capsule 30 mg PO DAILY niacinamide 500 MG tablet 500 mg PO DAILY metformin 500 MG tablet extended release 24 hr 500 mg PO BID Patient Comments: cholecalciferol (vitamin D3) [Vitamin D3] 25 mcg (1,000 unit) capsule 25 mcg PO DAILY ascorbic acid (vitamin C) [C-1000] 1,000 mg tablet 1 g PO DAILY Held valsartan 80 mg tablet 80 mg PO DAILY Hold Instructions: Resume on 06/12/23. Discontinued chlorhexidine gluconate 0.12 % mouthwash 15 ml PO TID Referrals / Follow Up: Estrada Ford MD [Primary Care Provider] - Disposition Disposition (needs filled in before D/C Order can be placed): Acute Care Hospital Charges/Coding Visit Charges Inpatient E&M: 13321 Disch Hosp >30min
--- NOTE | 2023-06-02 14:48 | NURSING ---
Report called to LORY Carter at [facility] at 1441.
== END 2023-06-02 16:22 | disposition short-term general hospital (02) | DRG 282 ==
LOC: ED 23:35 → PCU 06-02 00:10
PROVIDERS: Admitting Provider Family Medicine; Emergency Provider Emergency Medicine; PCP Family Medicine; Visit Provider Hospitalist
DX: I21.4 Non-ST elevation (NSTEMI) myocardial infarction (principal); E11.65 Type 2 diabetes mellitus with hyperglycemia; I45.4 Nonspecific intraventricular block; I48.91 Unspecified atrial fibrillation; I10 Essential (primary) hypertension; E78.00 Pure hypercholesterolemia, unspecified; R00.1 Bradycardia, unspecified; E66.9 Obesity, unspecified; Z68.34 Body mass index [BMI] 34.0-34.9, adult; Z79.82 Long term (current) use of aspirin; Z79.84 Long term (current) use of oral hypoglycemic drugs; Z79.899 Other long term (current) drug therapy
CPT/HCPCS: 36415; 71045; 80048; 82962; 84443; 84484; 85025; 85610; 85730; 93005; 93306; 93454; 99152; 99153; 99284; J7040; Q9957; Q9967; A4216; C1769; C1894; C8929

== ENCOUNTER 2023-06-29 09:39 | Inpatient (IN) | payer MEDICARE, BC, SELFPAY ==
[2023-06-29] VITALS (12 sets, daily range): BP systolic 103–130; BP diastolic 58–75; PULSE 61–83; RESP 16–25; TEMP 35.9–37.1; O2SAT 88–98; BMI 33.5
[2023-06-29 10:25] LABS: Absolute Lymphocyte Count 1.05 X10^3/uL (0.83-4.51); Absolute Neutrophil Count 5.2 X10^3/uL (2.0-7.7); Basophil# 0.06 X10^3/uL; Basophil% 0.7 % (0-1); Eosinophil# 0.58 X10^3/uL; Eosinophils% 7.2 % (0-5); Hematocrit 33.8 % (40-54); Hemoglobin 10.9 g/dL (13.0-16.5); Lymphocyte # 1.05 X10^3/ul (0.83-4.51); Mean Corp Hgb Conc 32.2 g/dL (32-36); Mean Corpuscular Hgb 30.4 pg (27.0-32.0); Mean Corpuscular Volume 94.2 fL (80-94); Mean Platelet Vol. 8.7 fl (6.2-12.0); Monocyte# 1.14 X10^3/uL; Monocyte% 14.1 % (0-10); NRBC Flagged by Analyzer 0 % (0-5); Neutrophil % 64.5 % (47-70); Platelet Count 329 K/mm3 (150-450); RBC Distribution Width SD 48.3 fl (35.1-43.9); Red Blood Count 3.59 M/mm3 (4.6-6.2); White Blood Count 8.1 K/mm3 (4.4-11.0)
--- NOTE | 2023-06-29 10:31 | EX.ED.DYSGE1 ---
HPI History of Present Illness Chief Complaint: Cellulitis Narrative Narrative: 82-year-old male presenting with cellulitis of the left leg. He states that he has been on doxycycline, Bactrim and has had injections of Rocephin and notes that the cellulitis on the left leg is not going away. Denies any fevers or chills. He states is not painful but he does note it is warmer. The initial cellulitis started on the mid tibia and was outlined and has started to clear although the rash is spreading outward which has been outlined 2 more times. Patient states he has been in contact with the cardiology group at [facility] and they recommended as well as his primary care that he come to the emergency room and will be the antibiotics due to failed outpatient therapy. 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 [facility] Medical History Type 2 diabetes mellitus with hyperglycemia History of hypercholesterolemia History of hypertension DM II (diabetes mellitus, type II), controlled Hyperlipidemia HTN (hypertension) Home Medications ?Medication ?Instructions ?Recorded ?Last Taken ?Type aspirin 81 mg tablet,delayed 81 mg PO DAILY@0800 07/15/14 06/29/23 History release atorvastatin 40 mg tablet 40 mg PO QHS 07/15/14 06/28/23 History coenzyme Q10 50 mg capsule (Co 30 mg PO DAILY 07/15/14 06/29/23 History Q-10) metformin 500 mg tablet,extended 500 mg PO BID 07/15/14 06/29/23 History release 24 hr niacinamide 500 mg tablet 500 mg PO QPM 07/15/14 06/28/23 History ascorbic acid (vitamin C) 1,000 mg 1 g PO DAILY dietary supplement 06/02/23 06/29/23 History tablet (C-1000) cholecalciferol (vitamin D3) 25 25 mcg PO DAILY dietary supplement 06/02/23 06/29/23 History mcg (1,000 unit) capsule (Vitamin D3) acetaminophen 500 mg capsule 500 mg PO Q6H PRN pain 06/29/23 06/29/23 History furosemide 40 mg tablet 40 mg PO DAILY 06/29/23 06/28/23 History metoprolol tartrate 25 mg tablet 25 mg PO BID 06/29/23 06/29/23 History potassium chloride 20 mEq 20 meq PO DAILY 06/29/23 06/28/23 History tablet,extended release(part/cryst) sulfamethoxazole 800 2 tab PO BID 06/29/23 06/29/23 History mg-trimethoprim 160 mg tablet Allergy/AdvReac Type Severity Reaction Status Date / Time No Known Allergies Allergy Verified 06/29/23 09:40 Family History Other Heart disease Surgical History History of recent dental procedure Social History Smoking Status: Never smoker ROS ROS ED Constitutional Constitutional ED: Denies chills, fever(s) or sweats Eyes Eyes: Denies blurry vision or change in vision ENT ENT ED: Denies ear pain or sore throat Cardiovascular Cardiovascular: Denies chest pain, palpitations or racing heartbeat Respiratory/Chest Respiratory/Chest: Denies cough, dyspnea or sputum Gastrointestinal Gastrointestinal: Denies abdominal pain, constipation, diarrhea, nausea or vomiting Genitourinary Genitourinary ED: Denies dysuria, hematuria or urinary frequency Musculoskeletal Musculoskeletal: Denies arthralgias, myalgias or neck pain Integumentary Reports rash; Denies abscess or Abrasions Neurologic Neurologic: Denies headache(s), paresthesias or weakness Psychiatric Psychiatric: Denies anxiety, depression, suicidal ideation or suicidal thoughts Endocrine Endocrinology: Denies polydipsia or polyuria EXAM Physical Exam Const Vital Signs: 06/29/23 09:40 06/29/23 09:42 06/29/23 10:40 Temperature 96.7 F L 98.7 F Temperature Source Temporal Temporal Pulse Rate 82 83 82 Respiratory Rate 16 16 18 Blood Pressure 115/69 115/69 118/64 Blood Pressure Mean 84 84 82 Pulse Ox 98 98 97 Oxygen Delivery Method Room Air Room Air Room Air 06/29/23 11:00 06/29/23 12:00 Temperature Temperature Source Pulse Rate 77 72 Respiratory Rate 16 21 H Blood Pressure 114/68 126/68 H Blood Pressure Mean 83 87 Pulse Ox 94 94 Oxygen Delivery Method Positive well nourished HEENT Reports moist mucous membranes Resp normal respiratory effort Extremity Extremity Narrative: There is erythema noted to the tibial region on the left leg which is spreading medially and laterally as well as superior and inferior. There are outlines from the previous borders. There is increased warmth of this area without any crepitance. I will see any drainage. It is nontender to palpation. Neuro oriented x3 Sensorium / Orientation: alert Motor Exam: strength 5/5 throughout Psych mental status grossly normal Skin General Skin Exam: jaundice MDM MDM MDM Narrative Medical decision making narrative: Patient presenting with failure of outpatient antibiotics. He has an area of erythema to the left tibial region although the borders appear to be more erythematous and warm than the central region which was initially outlined. No crepitance. Will check basic labs including CBC and BMP presents with blood cell count, hemoglobin, platelets, renal function, electrolytes. IV was established. CBC shows normal white blood cell count of 8.9. Hemoglobin 10.9. Platelets are 329. Slightly elevated today at 1.34. Discussed with the hospitalist who evaluated the patient and he feels that if the patient has a CT of the lower extremity and if there is no abscess he will keep the patient here at the hospital. He spoke with Dr. Rai who recommended vancomycin and Zosyn. Awaiting CT scan results. CT scan shows what looks to be cellulitis without any focal fluid collection. Patient was admitted to the hospitalist. Impression: 1. Cellulitis 2. Failure of outpatient antibiotics Lab Data Labs: Laboratory Results - last 24 hr 06/29/23 10:10 WBC 8.1 RBC 3.59 L Hgb 10.9 L Hct 33.8 L MCV 94.2 H MCH 30.4 MCHC 32.2 RDW Std Deviation 48.3 H RDW Coeff of Antonio 14.0 Plt Count 329 MPV 8.7 Immature Gran % (Auto) 0.500 Neut % (Auto) 64.5 Lymph % (Auto) 13.0 L Porter % (Auto) 14.1 H Eos % (Auto) 7.2 H Baso % (Auto) 0.7 Absolute Neuts (auto) 5.2 Absolute Lymphs (auto) 1.05 Nucleated RBC % 0 Sodium 135 L Potassium 4.1 Chloride 106 Carbon Dioxide 23.0 Anion Gap 6 BUN 29 H Creatinine 1.34 H Estim Creat Clear Calc 59.77 Est GFR (MDRD) Af Amer 66 Est GFR (MDRD) Non-Af 54 L BUN/Creatinine Ratio 21.6 H Glucose 127 H Calcium 9.2 Radiography Diagnostic Testing: Clinical Impression(s) from Imaging Studies Lower Extremity CT 06/29/23 11:04 IMPRESSION: Subcutaneous edema with overlying skin thickening. No evidence of a focal abscess or fluid collection. Electronically Signed: Heber Castro MD at 12:10 EDT , Discharge Plan Triage Chief Complaint: Cellulitis ED Provider: Murali Rich Dx/Rx/DC Orders Prescriptions: No Action atorvastatin 40 MG tablet 40 mg PO QHS aspirin 81 MG tablet 81 mg PO DAILY@0800 coenzyme Q10 [Co Q-10] 50 MG capsule 30 mg PO DAILY niacinamide 500 MG tablet 500 mg PO QPM metformin 500 MG tablet extended release 24 hr 500 mg PO BID Patient Comments: cholecalciferol (vitamin D3) [Vitamin D3] 25 mcg (1,000 unit) capsule 25 mcg PO DAILY ascorbic acid (vitamin C) [C-1000] 1,000 mg tablet 1 g PO DAILY furosemide 40 mg tablet 40 mg PO DAILY Rx Instructions: TAKE 1 TABLET BY MOUTH ONCE DAILY FOR 5 DAYS. START 06/26/23 metoprolol tartrate 25 mg tablet 25 mg PO BID acetaminophen 500 mg capsule 500 mg PO Q6H PRN (Reason: pain) sulfamethoxazole-trimethoprim 800-160 mg tablet 2 tab PO BID Rx Instructions: START 06/23/23- END 06/30/23 potassium chloride 20 mEq tablet,ER particles/crystals 20 meq PO DAILY Rx Instructions: STARTED 06/23/23 Primary Care Provider: Estrada Ford Referrals: Estrada Ford MD [Primary Care Provider] - Print Language: Peruvian
[2023-06-29 10:36] LABS: Anion Gap 6 (5-15); BUN 29 mg/dL (7-18); BUN/Creat Ratio 21.6 RATIO (10-20); Calcium,Total 9.2 mg/dL (8.5-10.1); Chloride 106 mmol/L (98-107); Creatinine, Serum 1.34 mg/dL (0.70-1.30); EST Glomerular Filtration Rate 54 mL/min (>60); Est Glom Filt Rate - Afr Amer 66 mL/min (>60); Estimated Creatinine Clearance 59.77 ml/min; Glucose 127 mg/dL (74-106); Potassium 4.1 mmol/L (3.5-5.1); Sodium Level 135 mmol/L (136-145)
--- NOTE | 2023-06-29 11:04 | CT_ITS ---
CT LEFT LOWER EXTREMITY WITH 3-D IMAGING CLINICAL INDICATION: r/o abscess. Recent coronary artery bypass surgery with the venous grafting. TECHNIQUE: Axial CT images of the LEFT lower extremity was performed without IV contrast material. Coronal and sagittal reformats were provided. The protocol utilizes one or more of the following dose reduction techniques: automated exposure control, adjustment of mA and/or kV according to patient size,and/or use of iterative reconstruction technique. RADIATION DOSAGE (If Supplied By Facility): CTDIvol = ( 15.35 ) mGy, DLP = ( 825.81 ) mGycm COMPARISON: No relevant prior comparison study available FINDINGS: Bones: Osseous structures are normal without evidence of fracture or dislocation. No lytic or blastic osseous masses. Soft Tissues: There is evidence of increased markings in the subcutaneous fat of the lower extremity suggestive of cellulitis. There is overlying skin thickening. No focal abscess or fluid collection is seen. There is evidence of vascular calcification. CT/Extremity Lower without Contra IMPRESSION: Subcutaneous edema with overlying skin thickening. No evidence of a focal abscess or fluid collection. Electronically Signed: Heber Castro MD at 12:10 EDT ,
--- NOTE | 2023-06-29 13:15 | NURSING ---
MED SURG TERELETSKY CELLULLITIS LEFT LEG
--- NOTE | 2023-06-29 14:31 | NURSING ---
MED SURG WHITE CELLULITIS LT LEG
--- NOTE | 2023-06-29 14:32 | NURSING ---
DR CONTRERAS NOT DR CHRISTIAN
[2023-06-29] MEDS: Ceftriaxone 2 GM in 0.9% Normal Saline (50mL MB+) 50 ML IV (16:09)
[2023-06-29] MEDS: Glucerna Shake 120 ML LIQUID PO (16:14)
[2023-06-29 16:42] LABS: Bedside Glucose 79 mg/dL (74-106)
[2023-06-29] MEDS: Vancomycin HCl 1,750 MG in 0.9% Normal Saline (500mL Bag) 500 ML 250 MG IV (16:54)
--- NOTE | 2023-06-29 17:38 | PCM.RX.CS ---
Consult Antibiotic Management Pharmacy has been consulted to manage selected antibiotic: Vancomycin Type of Intervention Type of Consult: New start Suspected Infection Suspected Infection: Skin/Soft tissue Prior Doses of Antibiotics Prior Doses of Antibiotics Received/Current Regimen: 1750MG of Vancomycin give 06/29/23 @ 1654 Labs Labs: Sodium 135 mmol/L (136-145) L 06/29/23 10:10 Potassium 4.1 mmol/L (3.5-5.1) 06/29/23 10:10 Chloride 106 mmol/L (98-107) 06/29/23 10:10 Carbon Dioxide 23.0 mmol/L (21.0-32.0) 06/29/23 10:10 Anion Gap 6 (5-15) 06/29/23 10:10 BUN 29 mg/dL (7-18) H 06/29/23 10:10 Creatinine 1.34 mg/dL (0.70-1.30) H 06/29/23 10:10 Est GFR (MDRD) Af Amer 66 mL/min (>60) 06/29/23 10:10 Est GFR (MDRD) Non-Af 54 mL/min (>60) L 06/29/23 10:10 BUN/Creatinine Ratio 21.6 RATIO (10-20) H 06/29/23 10:10 Glucose 127 mg/dL (74-106) H 06/29/23 10:10 Dosing Weight Weight used for dosin.8 kg Goal Trough Goal Trough: 10-15 mcg/mL Pharmacy Plan for Drug Dosing Pharmacy Plan for Drug Dosing: give 1000mg every 12 hours of Vancomycin startin 06/30/23 @ 0500 Pharmacy Service will continue to monitor and adjust dosing as required. Follow-Up Labs Follow-Up Labs: Trough: Vancomycin Date/Time Labs Ordered Labs to be done on [date and time ordered]: 07/01/23 @ 2399
--- NOTE | 2023-06-29 18:38 | HP.PCM.HOS_ITS ---
HPI - General General Date of Admission: 06/29/23 Date of Service: 06/29/23 Chief Complaint: Cellulitis of the left lower leg HPI Narrative CHAU BARRON, is a 82 M who presents to the emergency room at [facility] with complaints of redness and swelling of an area over the patient's left mid lieberman area, this has been going on for about a week, 2 weeks ago patient had coronary artery bypass at [facility] (four-vessel bypass) and the area of redness is associated with where his vein harvesting was performed. Patient has been on outpatient doxycycline, Bactrim, and had been given 1 dose of Rocephin yesterday but despite this, the area has increased in size. Patient denies any fevers or chills. Labs obtained in the emergency room showed a normal white blood cell count, hemoglobin was 10.9, chemistry profile showed an elevated creatinine of 1.34, elevated BUN at 29, and sodium of 135. I requested a CT of the left lower leg be performed to rule out abscess, there is no evidence of abscess, therefore I feel the patient can be admitted here and treated for cellulitis, I talked with infectious diseases by phone and they will see the patient tomorrow. Patient will be placed on IV Rocephin and vancomycin. [facility] Medical History (Updated 06/29/23 @ 18:[address] Tre Willoughby, ) Cancer Myocardial infarct Type 2 diabetes mellitus with hyperglycemia History of hypercholesterolemia History of hypertension DM II (diabetes mellitus, type II), controlled Hyperlipidemia HTN (hypertension) Home Medications ?Medication ?Instructions ?Recorded ?Last Taken ?Type aspirin 81 mg tablet,delayed 81 mg PO DAILY@0800 07/15/14 06/29/23 History release atorvastatin 40 mg tablet 40 mg PO QHS 07/15/14 06/28/23 History coenzyme Q10 50 mg capsule (Co 30 mg PO DAILY 07/15/14 06/29/23 History Q-10) metformin 500 mg tablet,extended 500 mg PO BID 07/15/14 06/29/23 History release 24 hr niacinamide 500 mg tablet 500 mg PO QPM 07/15/14 06/28/23 History ascorbic acid (vitamin C) 1,000 mg 1 g PO DAILY dietary supplement 06/02/23 06/29/23 History tablet (C-1000) cholecalciferol (vitamin D3) 25 25 mcg PO DAILY dietary supplement 06/02/23 06/29/23 History mcg (1,000 unit) capsule (Vitamin D3) acetaminophen 500 mg capsule 500 mg PO Q6H PRN pain 06/29/23 06/29/23 History furosemide 40 mg tablet 40 mg PO DAILY 06/29/23 06/28/23 History metoprolol tartrate 25 mg tablet 25 mg PO BID 06/29/23 06/29/23 History potassium chloride 20 mEq 20 meq PO DAILY 06/29/23 06/28/23 History tablet,extended release(part/cryst) sulfamethoxazole 800 2 tab PO BID 06/29/23 06/29/23 History mg-trimethoprim 160 mg tablet Allergy/AdvReac Type Severity Reaction Status Date / Time No Known Allergies Allergy Verified 06/29/23 09:40 Family History Other Heart disease Surgical History (Updated 06/29/23 @ 15:34 by Jaki Hyatt) Hx of CABG History of recent dental procedure Social History Smoking Status: Never smoker ROS ROS Narrative Patient complains of generalized redness over the patient's left mid lieberman area and an area adjacent to where he had his recent vein harvesting for his coronary artery bypass. Constitutional Constitutional: Denies anorexia, change in weight, chills, fatigue, fever(s), malaise, night sweats or weakness Eyes Eyes: Denies blurry vision, change in vision, discharge from eye(s) or eye pain Cardiovascular Cardiovascular: Denies chest pain, claudication, edema or palpitations Respiratory/Chest Respiratory/Chest: Denies cough, hemoptysis, shortness of breath at rest or shortness of breath with exertion Gastrointestinal Gastrointestinal: Denies abdominal pain, constipation, diarrhea, hematemesis, hematochezia, melena, nausea or vomiting Genitourinary Genitourinary: Denies dysuria, hematuria, urinary frequency, urinary hesitancy, urinary incontinence or urinary urgency Musculoskeletal Musculoskeletal: Denies back pain, joint pain, joint stiffness, joint swelling, myalgias or neck pain Neurologic Neurologic: Denies abnormal gait, abnormal speech, dizziness, focal weakness, headache(s), loss of vision, numbness, other visual disturbances, paresthesias, syncope or tingling Psychiatric Psychiatric: Denies anxiety, cognitive impairment, depression, irritability, mood swings or suicidal ideation Endocrine Endocrinology: Denies change in body appearance, cold intolerance, excessive sweating, heat intolerance, polydipsia or polyuria Hematologic/Lymphatic Hematologic/Lymphatic: Denies none, anemia, easy bleeding, easy bruising or lymphadenopathy Allergic/Immunologic Allergic/Immunologic: Denies rhinitis, urticaria, eczemia or asthma Vital Signs Vital Signs Vital Signs: 06/29/23 09:40 06/29/23 09:42 06/29/23 10:40 Temperature 96.7 F L 98.7 F Temperature Source Temporal Temporal Pulse Rate 82 83 82 Respiratory Rate 16 16 18 Respiratory Effort Respiratory Depth Respiratory Pattern Blood Pressure 115/69 115/69 118/64 Blood Pressure Mean 84 84 82 Blood Pressure Source Blood Pressure Position Blood Pressure Location Pulse Ox 98 98 97 Oxygen Delivery Method Room Air Room Air Room Air Oxygen Flow Rate (L/min) 06/29/23 11:00 06/29/23 12:00 06/29/23 12:45 Temperature 98.5 F Temperature Source Pulse Rate 77 72 76 Respiratory Rate 16 21 H 25 H Respiratory Effort Respiratory Depth Respiratory Pattern Blood Pressure 114/68 126/68 H 114/75 Blood Pressure Mean 83 87 88 Blood Pressure Source Blood Pressure Position Blood Pressure Location Pulse Ox 94 94 93 Oxygen Delivery Method Oxygen Flow Rate (L/min) 06/29/23 13:00 06/29/23 13:51 06/29/23 13:51 Temperature Temperature Source Pulse Rate 74 Respiratory Rate 24 H Respiratory Effort Respiratory Depth Respiratory Pattern Blood Pressure 107/71 Blood Pressure Mean 83 Blood Pressure Source Blood Pressure Position Blood Pressure Location Pulse Ox 93 88 94 Oxygen Delivery Method Room Air Nasal Cannula Oxygen Flow Rate (L/min) 2 06/29/23 14:07 06/29/23 15:45 06/29/23 15:45 Temperature 97.4 F L Temperature Source Oral Pulse Rate 73 61 Respiratory Rate 18 16 Respiratory Effort Normal Respiratory Depth Normal Respiratory Pattern Normal Blood Pressure 103/58 L 130/61 H Blood Pressure Mean 73 84 Blood Pressure Source Monitor Blood Pressure Position Semi-Fowlers Blood Pressure Location Left Arm Pulse Ox 96 96 Oxygen Delivery Method Nasal Cannula Nasal Cannula Nasal Cannula Oxygen Flow Rate (L/min) 2 2 3 Weight Weight: 121.835 kg Body Mass Index (BMI) 33.5 Physical Exam Const alert, oriented x3, no apparent distress, average body habitus and healthy appearing General Appearance: cooperative, well kempt and well developed Orientation / Consciousness: awake, oriented to person, oriented to place and oriented to time HEENT normocephalic, head/scalp atraumatic, hearing grossly normal bilaterally and moist oral mucous membranes Eyes PERRL, EOMs intact bilaterally and conjunctivae normal Neck supple, no JVD, thyroid normal and no carotid bruits General: trachea midline Resp normal respiratory effort and clear to auscultation bilaterally Auscultation: Negative for rales, rhonchi or wheezes Cardio regular rate, regular rhythm, S1 normal heart sound, S2 normal heart sound, no murmurs, no rub and no gallops GI normal to inspection, nondistended, normoactive bowel sounds, soft to palpation, non-tender and non-distended Extremity no clubbing, cyanosis or edema Skin Skin Narrative: There is a healing incision noted over the patient's mid chest area over the precordium from his recent bypass surgery, this area is nonreddened and there is no discharge from the area. Examination of the patient's left lower leg reveals an area approximately 8 to 10 cm x 15 cm over the mid lieberman area, this area is reddened, there is a small open area to the medial aspect of this area where the patient had his vein harvesting performed. There is no discharge noted from the area, the area is warm to the touch but not particularly tender. Neuro oriented x3, CN's II-XII intact bilaterally, no focal motor deficits and no sensory deficits noted Sensorium / Orientation: awake and alert Speech: speech normal Psych affect normal Results Lab / Micro Data 06/29/23 10:10 06/29/23 10:10 Labs: Laboratory Results - last 24 hr 06/29/23 10:10: WBC 8.1, RBC 3.59 L, Hgb 10.9 L, Hct 33.8 L, MCV 94.2 H, MCH 30.4, MCHC 32.2, RDW Std Deviation 48.3 H, RDW Coeff of Antonio 14.0, Plt Count 329, MPV 8.7, Immature Gran % (Auto) 0.500, Neut % (Auto) 64.5, Lymph % (Auto) 13.0 L , Banner % (Auto) 14.1 H, Eos % (Auto) 7.2 H, Baso % (Auto) 0.7, Absolute Neuts (auto) 5.2, Absolute Lymphs (auto) 1.05, Nucleated RBC % 0, Sodium 135 L, Potassium 4.1, Chloride 106, Carbon Dioxide 23.0, Anion Gap 6, BUN 29 H, C reatinine 1.34 H, Estim Creat Clear Calc 59.77, Est GFR (MDRD) Af Amer 66, Est GFR (MDRD) Non-Af 54 L, BUN/Creatinine Ratio 21.6 H, Glucose 127 H, Calcium 9.2 06/29/23 16:11: POC Glucose 79 Imaging Radiology Impression Lower Extremity CT 06/29/23 11:04 IMPRESSION: Subcutaneous edema with overlying skin thickening. No evidence of a focal abscess or fluid collection. Electronically Signed: Heber Castro MD at 12:10 EDT Reading Location ID and State: [facility] / [place] , Service support , Assessment & Plan Assessment/Plan (1) Cellulitis of left lower leg: PLAN: Plan 1. Cellulitis of the left lower leg associated with recent vein harvesting for his coronary artery bypass grafting, failed outpatient treatment-patient will be admitted to [facility], he will be placed on IV Rocephin and IV vancomycin, he will be seen by infectious diseases for consultation. #2 coronary artery disease-stable at this time, patient underwent coronary artery bypass 2 weeks ago-he will remain on his present medications #3 type 2 diabetes-patient is currently on metformin, I have chosen not to monitor his blood sugars at this time #4 hyperlipidemia-patient is on atorvastatin Total clinical time spent by myself addressing the patient's medical issues, reviewing all of his data, and collaborating with patient's care team: 75 minutes Charges/Coding Visit Charges Inpatient E&M: 06635 Init Hosp L3
[2023-06-29] MEDS: Heparin Injection (Vial) 5,000 UNIT/ML VIAL 5000 UNIT SC (22:53)
[2023-06-29] MEDS: Atorvastatin Calcium 40 MG Tablet PO (22:53)
[2023-06-30 04:59] LABS: Absolute Lymphocyte Count 1.23 X10^3/uL (0.83-4.51); Absolute Neutrophil Count 5.3 X10^3/uL (2.0-7.7); Basophil# 0.07 X10^3/uL; Basophil% 0.8 % (0-1); Eosinophil# 0.87 X10^3/uL; Eosinophils% 9.7 % (0-5); Hematocrit 34.1 % (40-54); Hemoglobin 10.7 g/dL (13.0-16.5); Lymphocyte # 1.23 X10^3/ul (0.83-4.51); Lymphocyte % 13.7 % (19-41); Mean Corp Hgb Conc 31.4 g/dL (32-36); Mean Corpuscular Hgb 30.1 pg (27.0-32.0); Mean Corpuscular Volume 96.1 fL (80-94); Mean Platelet Vol. 8.9 fl (6.2-12.0); Monocyte# 1.49 X10^3/uL; Monocyte% 16.6 % (0-10); NRBC Flagged by Analyzer 0 % (0-5); Neutrophil # 5.28 X10^3/uL (2.7-7.7); Neutrophil % 58.5 % (47-70); Platelet Count 302 K/mm3 (150-450); RBC Distribution Width CV 13.9 % (11.6-14.6); RBC Distribution Width SD 49.1 fl (35.1-43.9); Red Blood Count 3.55 M/mm3 (4.6-6.2)
[2023-06-30 05:00] VITALS: BP 102/57; PULSE 79; RESP 18; TEMP 36.7; O2SAT 95
[2023-06-30] MEDS: Vancomycin IV 1,000 MG/200 ML BAG 200 MG IV ×2 (05:18→16:59)
[2023-06-30 05:34] LABS: Anion Gap 6 (5-15); BUN 24 mg/dL (7-18); BUN/Creat Ratio 20.2 RATIO (10-20); Calcium,Total 9.2 mg/dL (8.5-10.1); Chloride 106 mmol/L (98-107); Creatinine, Serum 1.19 mg/dL (0.70-1.30); EST Glomerular Filtration Rate 62 mL/min (>60); Est Glom Filt Rate - Afr Amer 75 mL/min (>60); Estimated Creatinine Clearance 67.31 ml/min; Glucose 115 mg/dL (74-106); Potassium 4.3 mmol/L (3.5-5.1); Sodium Level 136 mmol/L (136-145)
[2023-06-30] MEDS: Losartan Potassium 25 MG Tablet PO (08:08)
[2023-06-30] MEDS: Aspirin E.C. 81 MG Tablet PO (08:08)
[2023-06-30] MEDS: Ascorbic Acid 500 MG Tablet 1000 MG PO (08:08)
[2023-06-30] MEDS: Heparin Injection (Vial) 5,000 UNIT/ML VIAL 5000 UNIT SC ×2 (08:09→22:27)
[2023-06-30 08:32] VITALS: BP 118/79; PULSE 81; RESP 16; TEMP 36.6; O2SAT 91; O2SAT 92; O2SAT 94
[2023-06-30] MEDS: Ceftriaxone 2 GM in 0.9% Normal Saline (50mL MB+) 50 ML IV (09:21)
[2023-06-30] MEDS: Glucerna Shake 120 ML LIQUID PO ×3 (09:21→17:00)
--- NOTE | 2023-06-30 11:15 | CASEMGMT ---
Addendum entered by Flora Herron 06/30/23 12:55: Received message back from [facility], pt is active with SN and PT and they will resume pt upon dc. Original Note: LORY PERALTA Assessment: Face to Face with pt for initial transition planning/care coordination assessment. LORY PERALTA introduced self and role at [facility], pt voices understanding and consents to assessment. Pt is A&O x4 and answers all questions appropriately at this time. Pt sitting up in chair in no distress. Care providers, pharmacy, and demographics verified/updated. Admitting Dx: cellulitis of left leg PCP:Liliana Specialists:Dajuan, cardiac OR; Chandrakant will be pt cardio but he has not seen him yet, janay Fisher Preferred Pharmacy: [facility] Insurance: Lolly BAUGH Prescription Benefit: yes LNOK: Renu Mota, ; Claudia Mota, dtr Living Arrangements: Pt lives with and dtr in a 3 story home with 4 steps to enter. Pt reports he is I in ADL's and denies concerns at home. Transportation: Pt states he is medically cleared to drive but has not yet. Pt and dtr have been transporting him to medical appts. DME:shower chair, BGM with sufficient supply of strips and lancets. Pt keeps a log of his VS and blood sugars. HHC/SNF: Pt is active with [facility], pt would like to resume upon dc and denies need for a list of other options. Denies SNF stays. Pt states no concerns with going home at time of dc. Pt states he will be starting cardiac rehab soon. Pt states no further concerns/needs. CM to follow. Advised pt to ask CM if any further question/concerns/needs arise, voices understanding. Pt Goal: Home with HHC resuming Plan: Home with HHC resuming, referral sent to [facility] via [facility]. Jerome HENLEY CM
[2023-06-30 11:18] VITALS: BP 109/61; PULSE 92; RESP 16; TEMP 36.7; O2SAT 94
--- NOTE | 2023-06-30 12:44 | PN.HOSP_ITS ---
Reason for Visit Reason for Visit: Diagnoses Cellulitis of left lower limb (06/29/23) Subjective Subjective Patient was seen and examined today, the reddened area over the patient's left lieberman to me looks improved today, there is less redness noted there, edema still exist however. Patient's white blood cell count remained normal today, creatinine was also normal. Objective Data Objective Data Vital Signs: Vital Signs Temp Pulse Resp BP Pulse Ox O2 Del Method O2 Flow Rate 98.1 F 92 16 109/61 94 Room Air 2 06/30/23 11:18 06/30/23 11:18 06/30/23 11:18 06/30/23 11:18 06/30/23 11:18 06/30/23 11:18 06/30/23 05:00 Oxygen Flow Rate (L/min) 2 Oxygen Delivery Method Room Air Weight: 121.835 kg Body Mass Index (BMI) 33.5 Intake & Output: Intake and Output for Last 24 Hours 06/28/23 06/29/23 06/30/23 23:59 23:59 23:59 Intake Total 835 / 835 600 / 600 Balance 835 / 835 600 / 600 Lab / Micro Data 06/30/23 04:23 06/30/23 04:23 Labs: Laboratory Results - last 24 hr 06/29/23 16:11: POC Glucose 79 06/30/23 04:23: WBC 9.0, RBC 3.55 L, Hgb 10.7 L, Hct 34.1 L, MCV 96.1 H, MCH 30.1, MCHC 31.4 L, RDW Std Deviation 49.1 H, RDW Coeff of Antonio 13.9, Plt Count 302, MPV 8.9, Immature Gran % (Auto) 0.700, Neut % (Auto) 58.5, Lymph % (Auto) 13.7 L, [place] % (Auto) 16.6 H, Eos % (Auto) 9.7 H, Baso % (Auto) 0.8, Absolute Neuts (auto) 5.3, Absolute Lymphs (auto) 1.23, Nucleated RBC % 0, Sodium 136, Potassium 4.3, Chloride 106, Carbon Dioxide 24.0, Anion Gap 6, BUN 24 H, Creatinine 1.19, Estim Creat Clear Calc 67.31, Est GFR (MDRD) Af Amer 75, Est GFR (MDRD) Non-Af 62, BUN/Creatinine Ratio 20.2 H, Glucose 115 H, Calcium 9.2 Physical Exam Narrative alert, oriented x3, no apparent distress, average body habitus and healthy appearing General Appearance: cooperative, well kempt and well developed Orientation / Consciousness: awake, oriented to person, oriented to place and oriented to time HEENT normocephalic, head/scalp atraumatic, hearing grossly normal bilaterally and moist oral mucous membranes Eyes PERRL, EOMs intact bilaterally and conjunctivae normal Neck supple, no JVD, thyroid normal and no carotid bruits General: trachea midline Resp normal respiratory effort and clear to auscultation bilaterally Auscultation: Negative for rales, rhonchi or wheezes Cardio regular rate, regular rhythm, S1 normal heart sound, S2 normal heart sound, no murmurs, no rub and no gallops GI normal to inspection, nondistended, normoactive bowel sounds, soft to palpation, non-tender and non-distended Extremity no clubbing, cyanosis or edema Skin Skin Narrative: There is a healing incision noted over the patient's mid chest area over the precordium from his recent bypass surgery, this area is nonreddened and there is no discharge from the area. Examination of the patient's left lower leg reveals an area approximately 8 to 10 cm x 15 cm over the mid lieberman area, this area is reddened, there is a small open area to the medial aspect of this area where the patient had his vein harvesting performed. There is no discharge noted from the area, the area is warm to the touch but not particularly tender. Neuro oriented x3, CN's II-XII intact bilaterally, no focal motor deficits and no sensory deficits noted Sensorium / Orientation: awake and alert Speech: speech normal Psych affect normal Assessment & Plan Assessment/Plan (1) Cellulitis of left lower leg: PLAN: Plan 1. Cellulitis of the left lower leg associated with recent vein harvesting for his coronary artery bypass grafting, failed outpatient treatment-patient will be admitted to [facility], he will be placed on IV Rocephin and IV vancomycin, he will be seen by infectious diseases for consultation today. #2 coronary artery disease-stable at this time, patient underwent coronary artery bypass 2 weeks ago-he will remain on his present medications #3 type 2 diabetes-patient is currently on metformin, I have chosen not to monitor his blood sugars at this time #4 hyperlipidemia-patient is on atorvastatin Total clinical time spent by myself addressing the patient's medical issues, reviewing all of his data, and collaborating with patient's care team: 35 minutes Charges/Coding Visit Charges Inpatient E&M: 43973 Subs Hosp L2
--- NOTE | 2023-06-30 13:24 | CON.PCM.ID_ITS ---
Assessment & Plan Assessment/Plan (1) Cellulitis of left lower leg: PLAN: L lieberman cellulitis s/p donor vein for CABG at [facility] about 3 weeks ago. Mild symptoms, lieberman is not warm or tender, normal wbc, no fever. CT showed no abscess. Improving on vanc/ceftriaxone here. Likely can go home tomorrow or next day on po keflex 500mg tid for one more week. Will follow, thank you HPI Consult Data Date of Consult: 06/30/23 HPI Narrative Reason for Consultation: cellulitis HPI Narrative: CHAU BARRON, is a 82 M who had bypass x4 at [facility] about 3 weeks ago with veins taken from [facility]. About 10 days ago, developed progressive redness and swelling of L lieberman. No fever, no pain, no drainage. Saw PCP, given doxy, sx worsened over next 2-3 days, then given dose IM ceftriaxone and changed to bactrim. Redness cont to spread, came to ED, admitted on vanc/ceftriaxone, swelling better and redness may be starting to fade. Full ROS performed and neg except as noted above. [facility] Medical History Cancer Myocardial infarct Type 2 diabetes mellitus with hyperglycemia History of hypercholesterolemia History of hypertension DM II (diabetes mellitus, type II), controlled Hyperlipidemia HTN (hypertension) Home Medications ?Medication ?Instructions ?Recorded ?Last Taken ?Type aspirin 81 mg tablet,delayed 81 mg PO DAILY@0800 07/15/14 06/29/23 History release atorvastatin 40 mg tablet 40 mg PO QHS 07/15/14 06/28/23 History coenzyme Q10 50 mg capsule (Co 30 mg PO DAILY 07/15/14 06/29/23 History Q-10) metformin 500 mg tablet,extended 500 mg PO BID 07/15/14 06/29/23 History release 24 hr niacinamide 500 mg tablet 500 mg PO QPM 07/15/14 06/28/23 History ascorbic acid (vitamin C) 1,000 mg 1 g PO DAILY dietary supplement 06/02/23 06/29/23 History tablet (C-1000) cholecalciferol (vitamin D3) 25 25 mcg PO DAILY dietary supplement 06/02/23 06/29/23 History mcg (1,000 unit) capsule (Vitamin D3) acetaminophen 500 mg capsule 500 mg PO Q6H PRN pain 06/29/23 06/29/23 History furosemide 40 mg tablet 40 mg PO DAILY 06/29/23 06/28/23 History metoprolol tartrate 25 mg tablet 25 mg PO BID 06/29/23 06/29/23 History potassium chloride 20 mEq 20 meq PO DAILY 06/29/23 06/28/23 History tablet,extended release(part/cryst) sulfamethoxazole 800 2 tab PO BID 06/29/23 06/29/23 History mg-trimethoprim 160 mg tablet Allergy/AdvReac Type Severity Reaction Status Date / Time No Known Allergies Allergy Verified 06/29/23 09:40 Family History Other Heart disease Surgical History (Updated 06/29/23 @ 15:34 by Jaki Hyatt) Hx of CABG History of recent dental procedure Social History Smoking Status: Never smoker Physical Exam Const alert, oriented x3 and no apparent distress General Appearance: cooperative HEENT normocephalic and head/scalp atraumatic Eyes PERRL and EOMs intact bilaterally Neck supple and No nodes Resp normal air movement and clear to auscultation bilaterally Cardio regular rate and regular rhythm GI soft to palpation, non-tender and non-distended Extremity General Extremity: edema Skin Skin Narrative: L lieberman redness, not warm, not tender Lab / Micro Data Attestation: I reviewed the patient's lab results. 06/30/23 04:23 06/30/23 04:23 Labs: Laboratory Results - last 24 hr 06/29/23 16:11: POC Glucose 79 06/30/23 04:23: WBC 9.0, RBC 3.55 L, Hgb 10.7 L, Hct 34.1 L, MCV 96.1 H, MCH 30.1, MCHC 31.4 L, RDW Std Deviation 49.1 H, RDW Coeff of [place] 13.9, Plt Count 302, MPV 8.9, Immature Gran % (Auto) 0.700, Neut % (Auto) 58.5, Lymph % (Auto) 13.7 L, [place] % (Auto) 16.6 H, Eos % (Auto) 9.7 H, Baso % (Auto) 0.8, Absolute Neuts (auto) 5.3, Absolute Lymphs (auto) 1.23, Nucleated RBC % 0, Sodium 136, Potassium 4.3, Chloride 106, Carbon Dioxide 24.0, Anion Gap 6, BUN 24 H, Creatinine 1.19, Estim Creat Clear Calc 67.31, Est GFR (MDRD) Af Amer 75, Est GFR (MDRD) Non-Af 62, BUN/Creatinine Ratio 20.2 H, Glucose 115 H, Calcium 9.2
--- NOTE | 2023-06-30 13:58 | CASEMGMT ---
Social Work SW met with pt to discuss advance directives.? Pt confirms she has completed a living will and health care POA naming , Trevor, and daughter Juliana.? Pt notified that documents are not on file at [facility] and SW requested they be brought in for scanning into the EMR.? JENNIFER Cuellar
--- NOTE | 2023-06-30 14:46 | CASEMGMT ---
Resumption order sent to [facility] in case pt dc's over the weekend. Green sheet on chart.
[2023-06-30 15:41] VITALS: BP 92/57; PULSE 81; RESP 16; TEMP 36.8; O2SAT 95
[2023-06-30 20:22] VITALS: BP 115/76; PULSE 87; RESP 16; TEMP 36.7; O2SAT 95
[2023-06-30] MEDS: Atorvastatin Calcium 40 MG Tablet PO (22:28)
[2023-07-01 02:45] VITALS: BP 117/77; PULSE 74; RESP 16; TEMP 36.6; O2SAT 94
[2023-07-01 05:03] LABS: Vancomycin, Trough Level 12.6 ug/mL (5.0-15.0)
[2023-07-01] MEDS: Vancomycin IV 1,000 MG/200 ML BAG 200 MG IV ×2 (06:12→16:36)
--- NOTE | 2023-07-01 06:19 | PCM.RX.CS ---
Consult Antibiotic Management Pharmacy has been consulted to manage selected antibiotic: Vancomycin Labs Labs: Sodium 136 mmol/L (136-145) 06/30/23 04:23 Potassium 4.3 mmol/L (3.5-5.1) 06/30/23 04:23 Chloride 106 mmol/L (98-107) 06/30/23 04:23 Carbon Dioxide 24.0 mmol/L (21.0-32.0) 06/30/23 04:23 Anion Gap 6 (5-15) 06/30/23 04:23 BUN 24 mg/dL (7-18) H 06/30/23 04:23 Creatinine 1.19 mg/dL (0.70-1.30) 06/30/23 04:23 Est GFR (MDRD) Af Amer 75 mL/min (>60) 06/30/23 04:23 Est GFR (MDRD) Non-Af 62 mL/min (>60) 06/30/23 04:23 BUN/Creatinine Ratio 20.2 RATIO (10-20) H 06/30/23 04:23 Glucose 115 mg/dL (74-106) H 06/30/23 04:23 Vancomycin Trough 12.6 ug/mL (5.0-15.0) 07/01/23 04:35 Goal Trough Goal Trough: 10-15 mcg/mL Pharmacy Plan for Drug Dosing Pharmacy Plan for Drug Dosing: Pharmacy Service will continue to monitor and adjust dosing as required. TROUGH 12.6. NO CHANGES, FOLLOW UP TROUGH IN 2 DAYS Follow-Up Labs Follow-Up Labs: Trough: Vancomycin Date/Time Labs Ordered Labs to be done on [date and time ordered]: 07/02 @ 9117
[2023-07-01 08:02] VITALS: BP 125/80; PULSE 86; RESP 20; TEMP 36.2; O2SAT 97
[2023-07-01] MEDS: 0.9% Saline Lock 10 ML Syringe IV ×4 (08:12→21:39)
[2023-07-01] MEDS: Glucerna Shake 120 ML LIQUID PO ×3 (08:12→16:36)
[2023-07-01] MEDS: Ascorbic Acid 500 MG Tablet 1000 MG PO (08:12)
[2023-07-01] MEDS: Aspirin E.C. 81 MG Tablet PO (08:13)
[2023-07-01 08:30] VITALS: O2SAT 93
[2023-07-01] MEDS: Ceftriaxone 2 GM in 0.9% Normal Saline (50mL MB+) 50 ML IV (09:36)
[2023-07-01] MEDS: Heparin Injection (Vial) 5,000 UNIT/ML VIAL 5000 UNIT SC ×2 (09:37→21:38)
[2023-07-01] MEDS: Losartan Potassium 25 MG Tablet PO (09:37)
--- NOTE | 2023-07-01 09:56 | VDLE_ITS ---
Reason For Study: LLE Cellulitis / Pain RIGHT LEFT CFV is compressible, spontaneous, phasic, HX GSV [place] for CABG approximately 3 weeks competent and demonstrates normal ago. Area of GSV appears hypoechoic and augmentation. noncompressible. Finding is consistent with Procedure recent GSV harvest surgery. This is a venous duplex using B-mode, color CFV is compressible, spontaneous, phasic, flow and spectral Doppler. competent, and demonstrates normal Exam performed portable in patient room. augmentation. The exam was diagnostic. FV is compressible, spontaneous, phasic, A preliminary report was called and/or faxed competent and demonstrates normal to M/S 3 RN Silvestre. augmentation. POP V is compressible, spontaneous, phasic, competent and demonstrates normal augmentation. T/P Trunk is compressible. PTV is compressible. LT PerV is compressible. VL/Venous Duplex US, Unilateral Interpretation Summary Deep veins of the left lower extremity are patent and compressible segmentally. There is no evidence of left lower extremity deep vein thrombosis. Valvular competence appears intac t within the proximal deep venous system on the left . The left great saphenous vein is absent due to recent harvesting, with findings consistent with recent surgical removal. The right common femoral vein is patent and compressible . Ordering Physician: Tre Willoughby Referring Physician: Estrada Ford Performed By: Ty Shukla RVT
[2023-07-01 13:43] VITALS: BP 118/75; PULSE 90; RESP 18; TEMP 37.1; O2SAT 95
[2023-07-01 13:47] VITALS: PULSE 80
--- NOTE | 2023-07-01 16:08 | PCM.PN.HOSP ---
Reason for Visit Reason for Visit: Diagnoses Cellulitis of left lower limb (06/29/23) Subjective Subjective Patient was seen and examined today, left lower extremity remains reddened but less so than yesterday. I had a venous duplex scan performed on the left leg to rule out VTE, there was no sign of VTE. Objective Data Objective Data Vital Signs: Vital Signs Temp Pulse Resp BP Pulse Ox O2 Del Method O2 Flow Rate 98.8 F 80 18 118/75 95 Room Air 2 07/01/23 13:43 07/01/23 13:47 07/01/23 13:43 07/01/23 13:43 07/01/23 13:43 07/01/23 13:47 06/30/23 05:00 Oxygen Flow Rate (L/min) 2 Oxygen Delivery Method Room Air Weight: 121.835 kg Body Mass Index (BMI) 33.5 Intake & Output: Intake and Output for Last 24 Hours 06/29/23 06/30/23 07/01/23 23:59 23:59 23:59 Intake Total 835 / 835 1700 / 1700 250 / 250 Balance 835 / 835 1700 / 1700 250 / 250 Lab / Micro Data 06/30/23 04:23 06/30/23 04:23 Labs: Laboratory Results - last 24 hr 07/01/23 04:35: Vancomycin Trough 12.6 Physical Exam Narrative alert, oriented x3, no apparent distress, average body habitus and healthy appearing General Appearance: cooperative, well kempt and well developed Orientation / Consciousness: awake, oriented to person, oriented to place and oriented to time HEENT normocephalic, head/scalp atraumatic, hearing grossly normal bilaterally and moist oral mucous membranes Eyes PERRL, EOMs intact bilaterally and conjunctivae normal Neck supple, no JVD, thyroid normal and no carotid bruits General: trachea midline Resp normal respiratory effort and clear to auscultation bilaterally Auscultation: Negative for rales, rhonchi or wheezes Cardio regular rate, regular rhythm, S1 normal heart sound, S2 normal heart sound, no murmurs, no rub and no gallops GI normal to inspection, nondistended, normoactive bowel sounds, soft to palpation, non-tender and non-distended Extremity There is generalized edema in the left lower leg Skin Skin Narrative: There is a healing incision noted over the patient's mid chest area over the precordium from his recent bypass surgery, this area is nonreddened and there is no discharge from the area. Examination of the patient's left lower leg reveals an area approximately 8 to 10 cm x 15 cm over the mid lieberman area, this area is reddened, there is a small open area to the medial aspect of this area where the patient had his vein harvesting performed. There is no discharge noted from the area, the area is warm to the touch but not particularly tender. Neuro oriented x3, CN's II-XII intact bilaterally, no focal motor deficits and no sensory deficits noted Sensorium / Orientation: awake and alert Speech: speech normal Psych affect normal Assessment & Plan Assessment/Plan (1) Cellulitis of left lower leg: PLAN: Plan 1. Cellulitis of the left lower leg associated with recent vein harvesting for his coronary artery bypass grafting, failed outpatient treatment-patient will be admitted to [facility], patient remains on Rocephin and vancomycin for now #2 coronary artery disease-stable at this time, patient underwent coronary artery bypass 2 weeks ago-he will remain on his present medications #3 type 2 diabetes-patient is currently on metformin, I have chosen not to monitor his blood sugars at this time #4 hyperlipidemia-patient is on atorvastatin Total clinical time spent by myself addressing the patient's medical issues, reviewing all of his data, and collaborating with patient's care team: 25 minutes Charges/Coding Visit Charges Inpatient E&M: 39602 [facility] Hosp L1
[2023-07-01 21:35] VITALS: BP 123/76; PULSE 87; RESP 18; TEMP 36.8; O2SAT 93
[2023-07-01] MEDS: Atorvastatin Calcium 40 MG Tablet PO (21:39)
[2023-07-02 05:10] VITALS: BP 106/51; PULSE 79; RESP 18; TEMP 36.7; O2SAT 93
[2023-07-02] MEDS: 0.9% Saline Lock 10 ML Syringe IV (05:11)
[2023-07-02] MEDS: Vancomycin IV 1,000 MG/200 ML BAG 200 MG IV (05:11)
[2023-07-02 07:31] VITALS: PULSE 80
[2023-07-02] MEDS: Ascorbic Acid 500 MG Tablet 1000 MG PO (07:41)
[2023-07-02] MEDS: Aspirin E.C. 81 MG Tablet PO (07:41)
[2023-07-02] MEDS: Glucerna Shake 120 ML LIQUID PO (07:41)
[2023-07-02 07:47] VITALS: O2SAT 93
--- NOTE | 2023-07-02 09:23 | DCINST_ITS ---
Discharge Instructions Diet Discharge Diet: No restrictions Activity Discharge Activity: Return to Normal Activity Weight Bearing Status: Full weight bearing Follow Up Care Test Results: Test results from this visit will be discussed in further detail at your follow- up appointment, if applicable. Discharge Plan Admission Admit Date/Time: 06/29/23 12:12 Primary Reason for Your Visit: Cellulitis left lower leg Attending Provider: Tre Willoguhby Primary Care Provider: Estrada Ford Consulting Providers: Go Rai Instructions Additional Instructions / Restrictions: Recommend using compression stocking to the left lower extremity or using an José Luis wrap to wrap the area to reduce edema Discharge Orders/Prescriptions Prescriptions: New furosemide [Lasix] 40 mg tablet 40 mg PO DAILY Qty: 30 0RF Rx Instructions: Start on 07/02/2023 potassium chloride 10 mEq tablet extended release 20 meq PO DAILY Qty: 30 0RF cefdinir 300 mg capsule 300 mg PO BID Qty: 14 0RF Rx Instructions: Start on 07/03/2023 potassium chloride 10 mEq tablet extended release 20 meq PO DAILY Qty: 60 0RF Rx Instructions: Start on 07/02/2023 Continued atorvastatin 40 MG tablet 40 mg PO QHS aspirin 81 MG tablet 81 mg PO DAILY@0800 coenzyme Q10 [Co Q-10] 50 MG capsule 30 mg PO DAILY niacinamide 500 MG tablet 500 mg PO QPM metformin 500 MG tablet extended release 24 hr 500 mg PO BID Patient Comments: cholecalciferol (vitamin D3) [Vitamin D3] 25 mcg (1,000 unit) capsule 25 mcg PO DAILY ascorbic acid (vitamin C) [C-1000] 1,000 mg tablet 1 g PO DAILY metoprolol tartrate 25 mg tablet 25 mg PO BID acetaminophen 500 mg capsule 500 mg PO Q6H PRN (Reason: pain) Discontinued furosemide 40 mg tablet 40 mg PO DAILY Rx Instructions: TAKE 1 TABLET BY MOUTH ONCE DAILY FOR 5 DAYS. START 06/26/23 sulfamethoxazole-trimethoprim 800-160 mg tablet 2 tab PO BID Rx Instructions: START 06/23/23- END 06/30/23 potassium chloride 20 mEq tablet,ER particles/crystals 20 meq PO DAILY Rx Instructions: STARTED 06/23/23 Referrals / Follow Up: Estrada Ford MD [Primary Care Provider] - Within 1 Week Disposition Disposition (needs filled in before D/C Order can be placed): Home, Self Care
--- NOTE | 2023-07-02 09:50 | PCM.DC.SUM ---
Providers Date of Admission: 06/29/23 Date of Discharge: 07/02/23 Primary Care Physician: Dr. Estrada Ford MD Consultations 06/29/23 15:21 Consult: Infectious Disease Routine Consulting Provider: oG Rai Reason for Consult: cellulitis EMERGENT Consult: No MD Notified: Yes Date Notified: 06/29/23 Time Notified: 12:16 Method of Notification: Verbal Reason For Visit: CELLULITIS LEFT LEG Diagnosis Discharge Diagnosis (1) Cellulitis of left lower leg: Status: Acute Code(s): L03.116 - Cellulitis of left lower limb Plan 1. Cellulitis of the left lower leg associated with recent vein harvesting for his coronary artery bypass grafting, failed outpatient treatment-patient will be admitted to [facility], patient remains on Rocephin and vancomycin for now #2 coronary artery disease-stable at this time, patient underwent coronary artery bypass 2 weeks ago-he will remain on his present medications #3 type 2 diabetes-patient is currently on metformin, I have chosen not to monitor his blood sugars at this time #4 hyperlipidemia-patient is on atorvastatin #5 edema of the left lower leg secondary to recent vein harvesting for his bypass surgery Total clinical time spent by myself addressing the patient's medical issues, reviewing all of his data, and collaborating with patient's care team: 25 minutes Medications at Discharge Home Medications aspirin 81 mg tablet,delayed release 81 mg PO DAILY@0800 07/15/14 atorvastatin 40 mg tablet 40 mg PO QHS 07/15/14 coenzyme Q10 50 mg capsule (Co Q-10) 30 mg PO DAILY 07/15/14 metformin 500 mg tablet,extended release 24 hr 500 mg PO BID 07/15/14 niacinamide 500 mg tablet 500 mg PO QPM 07/15/14 ascorbic acid (vitamin C) 1,000 mg tablet (C-1000) 1 g PO DAILY dietary supplement 06/02/23 cholecalciferol (vitamin D3) 25 mcg (1,000 unit) capsule (Vitamin D3) 25 mcg PO DAILY dietary supplement 06/02/23 acetaminophen 500 mg capsule 500 mg PO Q6H PRN pain 06/29/23 metoprolol tartrate 25 mg tablet 25 mg PO BID 06/29/23 cefdinir 300 mg capsule 300 mg PO BID #14 caps 07/02/23 furosemide 40 mg tablet (Lasix) 40 mg PO DAILY #30 tabs 07/02/23 potassium chloride 10 mEq tablet,extended release 20 meq (2 x 10 mEq) PO DAILY #30 tabs 07/02/23 potassium chloride 10 mEq tablet,extended release 20 meq (2 x 10 mEq) PO DAILY #60 tabs 07/02/23 Hospital Course Operations None Procedures - (Left venous duplex scan) Summary of Care Provided Minutes Spent on Discharge: 31 Hospital Course: 72-year-old white male was seen in the emergency room [facility] with complaints of redness and swelling localized to the mid lieberman area of the left lower extremity over the past week. He had been on outpatient antibiotics orally and has been given 1 shot of Rocephin and the redness persisted. Patient had coronary artery bypass surgery 2 weeks prior and had a vein harvested of that left lower leg. Workup in the emergency room included a CBC which showed normal white blood cell count, lower extremity CT was done to the left lower leg, and did not show any evidence of abscess. It was felt that the patient could be treated at this hospital, he was admitted and placed on IV Rocephin and vancomycin, he was seen in consultation by infectious disease diseases. Patient's redness improved over the next several days, he still had edema in the left lower extremity and a venous duplex scan was ordered which did not show any evidence of VTE according to a pulmonary report by the termite technician. On 07/02/2023, patient was seen and examined:alert, oriented x3, no apparent distress, average body habitus and healthy appearing General Appearance: cooperative, well kempt and well developed Orientation / Consciousness: awake, oriented to person, oriented to place and oriented to time HEENT normocephalic, head/scalp atraumatic, hearing grossly normal bilaterally and moist oral mucous membranes Eyes PERRL, EOMs intact bilaterally and conjunctivae normal Neck supple, no JVD, thyroid normal and no carotid bruits General: trachea midline Resp normal respiratory effort and clear to auscultation bilaterally Auscultation: Negative for rales, rhonchi or wheezes Cardio regular rate, regular rhythm, S1 normal heart sound, S2 normal heart sound, no murmurs, no rub and no gallops GI normal to inspection, nondistended, normoactive bowel sounds, soft to palpation, non-tender and non-distended Extremity There is generalized edema in the left lower leg Skin Skin Narrative: There is a healing incision noted over the patient's mid chest area over the precordium from his recent bypass surgery, this area is nonreddened and there is no discharge from the area. Examination of the patient's left lower leg reveals an area approximately 8 to 10 cm x 15 cm over the mid lieberman area, this area is reddened, there is a small open area to the medial aspect of this area where the patient had his vein harvesting performed. There is no discharge noted from the area, the area is warm to the touch but not particularly tender. Neuro oriented x3, CN's II-XII intact bilaterally, no focal motor deficits and no sensory deficits noted Sensorium / Orientation: awake and alert Speech: speech normal Psych affect normal Patient appears stable for discharge on 07/02/2023, I elected to place him on Lasix and potassium at the time of his discharge from the hospital to see some of the patient's left lower leg swelling could be improved. Patient was instructed to follow-up with his PCP this week. Weight / BMI Weight Weight: 121.835 kg Body Mass Index (BMI) 33.5 ABG / Lab / Microbiology Data 06/30/23 04:23 06/30/23 04:23 D/C Instructions Discharge Diet: No restrictions Weight Bearing Status: Full weight bearing Meaningful Use Info Meaningful Use Meaningful Use Diagnoses (Choose all that apply): None applicable Ischemic Stroke Statin Dosing Therapy Reference: STATIN DOSE THERAPY REFERENCE: * Patients > 75 years receive moderate or high dose statin therapy. * Patients 75 years or YOUNGER should receive HIGH intensity statin dose unless contraindicated. You will be required to document reason for non-treatment if statin daily dose does not meet guidelines. HIGH DOSE STATIN THERAPY DAILY Atorvastatin > than or = to 40 mg Rosuvastatin > than or = to 20 mg Amlodipine + Atorvastatin > than or = to 2.5/40 mg Ezetimibe + Simvastatin 10/80 mg Simvastatin 80mg Discharge Plan Admission Admit Date/Time: 06/29/23 12:12 Primary Reason for Your Visit: Cellulitis left lower leg Attending Provider: Tre Willoughby Primary Care Provider: Estrada Ford Consulting Providers: Go Rai Instructions Additional Instructions / Restrictions: Recommend using compression stocking to the left lower extremity or using an José Luis wrap to wrap the area to reduce edema Discharge Orders/Prescriptions Prescriptions: New furosemide [Lasix] 40 mg tablet 40 mg PO DAILY Qty: 30 0RF Rx Instructions: Start on 07/02/2023 potassium chloride 10 mEq tablet extended release 20 meq PO DAILY Qty: 30 0RF cefdinir 300 mg capsule 300 mg PO BID Qty: 14 0RF Rx Instructions: Start on 07/03/2023 potassium chloride 10 mEq tablet extended release 20 meq PO DAILY Qty: 60 0RF Rx Instructions: Start on 07/02/2023 Continued atorvastatin 40 MG tablet 40 mg PO QHS aspirin 81 MG tablet 81 mg PO DAILY@0800 coenzyme Q10 [Co Q-10] 50 MG capsule 30 mg PO DAILY niacinamide 500 MG tablet 500 mg PO QPM metformin 500 MG tablet extended release 24 hr 500 mg PO BID Patient Comments: cholecalciferol (vitamin D3) [Vitamin D3] 25 mcg (1,000 unit) capsule 25 mcg PO DAILY ascorbic acid (vitamin C) [C-1000] 1,000 mg tablet 1 g PO DAILY metoprolol tartrate 25 mg tablet 25 mg PO BID acetaminophen 500 mg capsule 500 mg PO Q6H PRN (Reason: pain) Discontinued furosemide 40 mg tablet 40 mg PO DAILY Rx Instructions: TAKE 1 TABLET BY MOUTH ONCE DAILY FOR 5 DAYS. START 06/26/23 sulfamethoxazole-trimethoprim 800-160 mg tablet 2 tab PO BID Rx Instructions: START 06/23/23- END 06/30/23 potassium chloride 20 mEq tablet,ER particles/crystals 20 meq PO DAILY Rx Instructions: STARTED 06/23/23 Referrals / Follow Up: Estrada Ford MD [Primary Care Provider] - Within 1 Week Disposition Disposition (needs filled in before D/C Order can be placed): Home Health Service Charges/Coding Visit Charges Inpatient E&M: 70955 Disch Hosp >30min
[2023-07-02 09:59] VITALS: BP 129/66; PULSE 90; RESP 20; TEMP 36.9; O2SAT 95
[2023-07-02] MEDS: Ceftriaxone 2 GM in 0.9% Normal Saline (50mL MB+) 50 ML IV (10:01)
[2023-07-02] MEDS: Losartan Potassium 25 MG Tablet PO (10:04)
[2023-07-02] MEDS: Heparin Injection (Vial) 5,000 UNIT/ML VIAL 5000 UNIT SC (10:05)
== END 2023-07-02 11:37 | disposition home health service (06) | DRG 315 ==
LOC: ED 12:31 → MS3 13:32
PROVIDERS: Admitting Provider Internal Medicine; Emergency Provider Student in an Organized Health Care Education/Training Program; PCP Family Medicine; Visit Provider Internal Medicine
DX: T82.6XXA Infection and inflammatory reaction due to cardiac valve prosthesis, initial encounter (principal); L03.116 Cellulitis of left lower limb; E11.9 Type 2 diabetes mellitus without complications; I10 Essential (primary) hypertension; E78.00 Pure hypercholesterolemia, unspecified; I25.10 Atherosclerotic heart disease of native coronary artery without angina pectoris; Z79.84 Long term (current) use of oral hypoglycemic drugs; Z79.82 Long term (current) use of aspirin; Z79.899 Other long term (current) drug therapy; Z95.1 Presence of aortocoronary bypass graft; Y71.2 Prosthetic and other implants, materials and accessory cardiovascular devices associated with adverse incidents; R60.0 Localized edema
CPT/HCPCS: 36415; 73700; 80048; 80202; 82962; 85025; 93971; 97802; 99284; J7040; A4216; J0696

== ENCOUNTER → 2023-08-28 | Outpatient (CLI) | payer MEDICARE, BC, SELFPAY ==
[2023-08-28 08:38] LABS: Bacteria 0 SEEN /hpf (None Seen); Mucous, Urine 0 SEEN /hpf (<or=2+); Red Blood Cells-Urine 0 SEEN /hpf (0-5); Squamous Epithelial Cells - UA 0 SEEN /hpf (0-5); White Blood Cells 0 SEEN /hpf (0-5)
[2023-08-28 10:31] LABS: Absolute Lymphocyte Count 1.72 X10^3/uL (0.83-4.51); Absolute Neutrophil Count 6.1 X10^3/uL (2.0-7.7); Basophil# 0.09 X10^3/uL; Basophil% 0.9 % (0-1); Eosinophil# 0.28 X10^3/uL; Hematocrit 40.2 % (40-54); Hemoglobin 12.9 g/dL (13.0-16.5); Lymphocyte # 1.72 X10^3/ul (0.83-4.51); Lymphocyte % 18.1 % (19-41); Mean Corp Hgb Conc 32.1 g/dL (32-36); Mean Corpuscular Hgb 29.7 pg (27.0-32.0); Mean Corpuscular Volume 92.4 fL (80-94); Mean Platelet Vol. 9.9 fl (6.2-12.0); Monocyte% 12.6 % (0-10); NRBC Flagged by Analyzer 0 % (0-5); Neutrophil # 6.14 X10^3/uL (2.7-7.7); Neutrophil % 64.8 % (47-70); Platelet Count 260 K/mm3 (150-450); RBC Distribution Width CV 15.2 % (11.6-14.6); RBC Distribution Width SD 52.1 fl (35.1-43.9); Red Blood Count 4.35 M/mm3 (4.6-6.2); White Blood Count 9.5 K/mm3 (4.4-11.0)
[2023-08-28 10:39] LABS: Color, Urine Yellow (Yellow); Glucose, Dipstick Normal (Normal); Ketone-Dipstick Negative (Negative); Leukocyte Esterase-Dipstick Negative /ul (Negative); Nitrite-Dipstick Negative (Negative); Occult Blood-Urine 10 /ul (Negative); Protein-Dipstick Negative (Negative); Specific Gravity, Urine 1.015 (1.002-1.030); Urine Bilirubin Dipstick Negative (Negative); Urine Clarity Clear (Clear); Urine Urobilinogen Normal (Normal)
[2023-08-28 10:47] LABS: Vitamin D,25 Hydroxy 27.4 ng/mL
[2023-08-28 11:05] LABS: Microalbumin,Random Urine 19.3 mg/L (NO RANGE EST.); Microalbumin:Creatinine Ratio 24.3 mg/g CRE (<30 mg/g CRE)
[2023-08-28 11:21] LABS: AST(SGOT) 19 U/L (15-37); Alanine Aminotransfer ALT/SGPT 26 U/L (16-61); Albumin, Serum 3.7 g/dL (3.2-5.0); Alkaline Phosphatase 66 U/L (45-117); Anion Gap 8 (5-15); BUN 19 mg/dL (7-18); BUN/Creat Ratio 17.4 RATIO (10-20); Calcium,Total 9.2 mg/dL (8.5-10.1); Chloride 102 mmol/L (98-107); Cholesterol 126 mg/dL (200); Creatinine, Serum 1.09 mg/dL (0.70-1.30); EST Glomerular Filtration Rate 69 mL/min (>60); Est Glom Filt Rate - Afr Amer 83 mL/min (>60); Globulin 3.8 g/dL (2.2-4.2); Glucose 177 mg/dL (74-106); High Density Lipoprotein 42 mg/dL; Potassium 3.9 mmol/L (3.5-5.1); Protein, Total 7.5 g/dL (6.4-8.2); Sodium Level 135 mmol/L (136-145); Triglycerides 163 mg/dL; Very Low Density Lipoprotein 33 mg/dL (5-40)
[2023-08-28 21:22] LABS: Hemoglobin A1c 6.4 % (3.8-5.6)
[2023-08-29 16:26] LABS: Ferritin 174 ng/mL (26-388); Iron 58 ug/dL (65-175); Iron Binding Capacity,Total 319 ug/dL (250-450); PERCENT IRON SATURATION 18.2 % (15.0-55.0); Vitamin B12 369 pg/mL (211-911)
== END | disposition home or self-care (01) ==
LOC: MFPLAB 08:36
PROVIDERS: PCP Family Medicine; Visit Provider Family Medicine
DX: D64.9 Anemia, unspecified (principal); E11.8 Type 2 diabetes mellitus with unspecified complications; E55.9 Vitamin D deficiency, unspecified
CPT/HCPCS: 36415; 80053; 80061; 81001; 82043; 82306; 82570; 82607; 82728; 83036; 83540; 83550; 85025

== ENCOUNTER → 2023-09-06 | Outpatient (CLI) | payer BC, SELFPAY ==
--- NOTE | 2023-09-06 10:00 | PCM.CR.HP2 ---
CR - History & Physical General Arrival date:: 09/06/23 Arrival time:: 10:00 Date of Referral:: 08/22/23 Date of CR Evaluation:: 09/06/23 Referring Physician: Dr. Mat Stallings Primary Diagnosis: S/P CABG History of Present Cardiac Event Onset Date Coronary Artery Bypass Graft:: Yes Vessel: HERNANDEZ to LAD, vein graft to posterior descending artery of the right, vein g Medications Ambulatory Orders ?Medication ?Instructions ?Recorded aspirin 81 mg tablet,delayed 81 mg PO DAILY@0800 07/15/14 release atorvastatin 40 mg tablet 40 mg PO QHS 07/15/14 coenzyme Q10 50 mg capsule (Co 30 mg PO DAILY 07/15/14 Q-10) metformin 500 mg tablet,extended 500 mg PO BID 07/15/14 release 24 hr niacinamide 500 mg tablet 500 mg PO QPM 07/15/14 ascorbic acid (vitamin C) 1,000 mg 1 g PO DAILY dietary supplement 06/02/23 tablet (C-1000) cholecalciferol (vitamin D3) 25 25 mcg PO DAILY dietary supplement 06/02/23 mcg (1,000 unit) capsule (Vitamin D3) acetaminophen 500 mg capsule 500 mg PO Q6H PRN pain 06/29/23 metoprolol tartrate 25 mg tablet 25 mg PO BID 06/29/23 furosemide 40 mg tablet 40 mg PO DAILY PRN if needed for 08/24/23 weight gain of 3 pounds or more #30 TABLETS potassium chloride 20 mEq 20 meq PO DAILY PRN if needed take 08/24/23 tablet,extended release with Furosemide #30 TABLETS Allergies Allergies No Known Allergies Allergy (Verified 07/26/23 14:57) Sleep Disorder Evaluation Hx of Sleep Apnea: No Do you snore loudly (louder than talking or can be heard through closed doors)?: No Do you often feel tired/ fatigued/ sleepy during daytime?: No Has anyone observed you stop breathing during sleep?: No History of Hypertension (for STOP score): Yes STOP Results: Negative Advanced Directives Advanced Directives Power of Habitat Conservation Planner: Yes Living Will: Yes Advance Directives Information Provided: No Advance Directives on File: No DNR Order?:: No Past Medical History Covid-19 Screening Physicial Symptoms Other Clinical Concerns Exposure Risk Pertinent Comorbidities 65 years or older:: Yes Diabetic:: Yes Past Medical Illness Past Medical History (Updated 07/26/23 @ 15:[address] 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 History of left heart catheterization Z98.890 Cancer C80.1 Myocardial infarct I21.9 Type 2 diabetes mellitus with hyperglycemia E11.65 History of hypercholesterolemia Z86.39 History of hypertension Z86.79 DM II (diabetes mellitus, type II), controlled E11.9 Hyperlipidemia E78.5 HTN (hypertension) I10 Past Surgical History Past Surgical History Hx of CABG Z95.1 24 HERNANDEZ-LAD, SVG-PDA, SVG-RAMUS, SVG-DIAG1 History of recent dental procedure Z98.890 Family History Summary Family History Other Heart disease Social History Smoking History Smoking Status: Never smoker Alcohol Use Alcohol Usage: Yes (occasional) Occupation Occupation (List type of work in comments):: Retired Hobbies, Recreation, Social Activities Hobbies: Other ([employer]) Recreational Activities: I am able to engage in most, but not all activities Social Environment Status Marital Status: Current Living Arrangements Living Environment:: Spouse Children How many children do you have?: 1 Do any of your children live nearby?: Yes Safety Do you feel safe in your surroundings?: Yes Assistance Do you need any assistance at home?: no Review of Systems Review of Systems Hints Review of Present Symptoms: Reports Shortness of Breath with Exertion, Operative Discomfort, Dizziness/Lightheadedness, Fatigue, Appetite - Normal and Appetite - Special Diet; Denies Shortness of Breath at Rest, PVD, Angina, Wound Healing, Heart Arrhythmia/Irregularities, Sleep - Normal or Sexual Changes Pain Is Patient Pain Free?: Yes Risk Factor Assessment Chief Complaint Chief Complaint: s/p ACBG Vital Signs Pulse Ox: 93 Blood Pressure: 111/71 Pulse Pulse Rate: 93 Hypertension How long have you been treated?: 30-40 years Blood Pressure Sitting - Right Arm: 111/71 Diabetes Diabetic History: Type II Nutrition Referral for Diabetes: No Obesity Height: 6 ft 3 in Weight:: 266 lb Weight in Pounds: 266.0 lbs Body Mass Index (BMI): 33.2 Nutritional Referral for Obesity: No (declines) Physical Inactivity Physical Inactivity: Reg Exercise 30 min/day Risk Stratification Risk Guidelines: Moderate Risk: Risk Factor for Smoking, Risk Factor for Sedentary Lifestyle and Risk Factor for Depression and Highest Risk: Risk Factor for Dyslipidemia, Risk Factor for Diabetes, Risk Factor for Obesity and Risk Factor for Hypertension For Smoking Smoking Risk Guidelines For Dyslipidemia Dyslipidemia Risk Guidelines For Diabetes Mellitus Diabetes Risk Guidelines For Obesity/Overweight Obesity/Overweight Risk Guidelines For Hypertension Hypertension Risk Guidelines For Sedentary Lifestyle Sedentary Lifestyle Risk Guidelines For Depression Depression Risk Guidelines Family History Family History Other Heart disease Motivation Motivation to Participate On a scale of 1 to 10, how prepared are you to commit to attending program?: 10 What do you see as barriers to successfully being able to complete the program?: no What do you see as the benefits of succesfully completing the program? In other words, what do you hope to get out of participating in the program?: stamina, energy Are there issues you are dealing with that will interfere with completing the program?: nothing Do you have a spouse or signficant other, family or friends who will help support you to complete the program?: yes
[2023-09-06 10:07] VITALS: BP 111/71; PULSE 93
--- NOTE | 2023-09-06 10:07 | PCM.CR.ITP ---
Diagnosis General Information Admitting Diagnosis: s/p CABG Personal Learning Style:: Audio/Visual Stage of change r/t lifestyle modifications:: Contemplation Gave educational material for:: Treating Heart Disease, How The Heart Works, What it means to have Heart Disease, How Coronary Artery Disease is Diagnosed, Heart Procedures, What Heart Medications Do, Risk Factors & Modifications, Living an Active Life, Nutrition, Emotions & Heart Disease, Stress Management & Relaxation and Sleep Disorders & Heart Disease Education/Goals Cardiac Rehabilitation Goals Personal Goals: Initial Assessment: Improve energy level, Get back to work, or to resume activities faster, Improve muscle strength and endurance and Control risk factors (learn risk factor modification) Scale for measuring improvement of personal goals Diagnosis & Disease Process Outcomes/Goals: Pt IDs own risk factors & lifestyle modifications by Session 10, Verbalizes symptoms of angina & response by session 3., Pt independently manages and Other Additional Outcomes/Goals: Plan/Interventions: Assist Pt to ID & engage in lifestyle modification to reduce CVD risk, Instruct on individual risk factors, Review symptoms of angina & emergency actions, Review secondary diagnosis & identify educational needs. and Other see comment 30 day Reassessments:: Not Met 30 day Reassessments:: Not Met 30 day Reassessments:: Not Met 30 day Reassessments:: Not Met Final Reassessments:: Not Met Safety Referral to Physical Therapy: No Referral to [facility] Case Management: No Fall Risk Assessed:: Yes Assistive Devices:: None Exercise - Initial Assessment Visit Date of Eval: 09/06/23 (initial eval ) Mets: Pre-: >3 METS for 30 minutes by discharge, >5 METS for 30 minutes by discharge, >7 METS for 30 minutes by discharge and Unable to meet goal due to: (see comment below) Physician Prescribed Exercise Modalities: Treadmill, Schwinn Airdyne AD-7, SciFit Stepper, SciFit Pro-II Ergometer and [email or web address] Lateral Administrative Executive Frequency: 3x/week for 12 weeks [36 sessions] Intensity: 60-80% of age predicted maximum heart rate reserve Duration: 30 - 45 minutes Current METSs:: 3 Target Heart Rate:: 89-103 Resting Blood Pressure: 111/71 EKG Type: SR Outcomes & Goals Goals:: Verbalizes understanding of THR, RPE & goal METS by session 6, Documents in home exercise log/reports 30 min aerobic 5 day/wk by DC, Demonstrates accurate pulse taking by DC and Other additional outcome/goals: see below Intervention & Plan Exercise Program Goals: Instruct on personal THR & RPE, Instruct on MET level & personal MET goal, Show patient to take own pulse /validate performance until accurate, Instruct on home exercise and Other additional plan/int Physical Activity Home Exercise Physical Activity - Home Exercise: Safe Exercise, Warm-up, Self-monitoring, Cool-Down, Home Exercise > 30 min Daily and Sitting Time <3 hours/daily Outcomes & Goals Outcomes/Goals: Demonstrates correct Warm-up/exercise Cool-Down (S3) if = 2.5 METs, Verbalizes symptoms of exercise intolerance by Session 3 (S3), Demonstrate safe equipment use (S3) & follows exercise prescrition (6) and Other: See below Intervention & Plan Plan/Intervention: Instruct warm-up & cool-down if exercising at > 2 METs, Instruct on symptoms of exercise intolerance & actions to take, Instruct & monitor on saf, Assess intial functional capacity & safety risk and Other See below Nutrition - Initial Assessment Program Goals Nutrition Program Goals Patient has diagnosis of Hyperlipidemia (ICD E78)?: Yes Visit Date of Eval: 09/06/23 (initial eval ) Cholesterol/Lipids (Other Core Measures) Determine presence & major risk factors that modify LDL goal: Hypertension or hypertensive medication, Low HDL cholesterol <40 mg/dL*, Family history of premature CHD in Male < 55 years: female <65 yearsFa and Age men > 45 years; women >/= 55 years Outcomes/Goals: Pt IDs own risk factors & lifestyle modifications by Session 10, Verbalizes symptoms of angina & response by session 3., Pt independently manages and Other Additional Outcomes/Goals: Intervention/Plan: Advocate for lipid panel cholesterol medication if applicable, Instruct on personal lipid levels & lipid goals/NCEP guidelines, Instruct on cholesterol and Other additional plan/int Diabetes (Other Core Measures) Diabetes Type: Diagnosis Type II ICD-10 E11 Insulin dependent injection/pump?: No Non-Insulin Dependent?: Yes Do you monitor your blood sugar at home?: Yes Referral to Diabetic Clinic:: No Outcomes/Goals:: Able to state symptoms of, Able to state, Able to state and Other additional Intervention/Plan:: Instruct on, Refer to, Instruct on and Other Weight Mgt (Other Care) Height: 6 ft 3 in Weight:: 266 lb BMI: 33.2 Diagnosis Overweight/Obesity BMI> 30% ICD-10 E66: Yes Diagnosis High BMI/Morbid Obesity BMI> 35% ICD-10 Z68: No Outcomes/Goals: Pt sets, maintains & shows weight loss goal & trend during rehab and Other additional outcomes/goals Intervention/Plan: Instruct on ideal BMI & set weight loss goal w/patient, Assist pt to ID & incorporate diet changes for weight loss by S9, Refer to Structured Weight Loss program as appropriate, Encourage goal of using 250-300dcal per session for weight loss and Other additional plan/interventions Healthy Eating Habits Will attend diet classes:: Yes Outcomes/Goals:: Consume diet rich in vegs,fruits,whole grain/high fiber,fish,lean meat, Limit sat/trans fats,cholesterol & added salts & sugars and Other additional outcome/goals: Intervention/Plan:: Assess current eating habits and Other Additional plan/interventions Education Gave educational materials for:: Signs & symptoms of hypoglycemia, Signs & symptoms of hyperglycemia, Relate diabetes to coronary artery disease and Healthy eating Core - Initial Assessment Visit Date of Eval: 09/06/23 (initial eval ) Medication Compliance Preventative Medication(s):: Aspirin, Statin/lipid and Beta silvano H/O mental health issues: depression, anxiety, or addiction?: No Doesn?t believe in the benefits of treatment?: No Believes medications are unnecessary or harmful?: No Has a concern about medication side effects?: No Expresses concern over the cost of medications?: No Outcomes/Goals: Verbalizes medications,desired effect & common side effects @ DC, Pt self-reports following medication regimen, Keeps card in wallet w/medications listed by DC and Other additional outcome/goals: Interventions/plans: Instruct on medication effects & side effects, Review medication list w/patient every two weeks, Instruct importance of taking meds as ordered & assist problem solving and Other additional Tobacco Use Tobacco Use: Non-smoker Hypertension Hypertension Diagnosis:: Hypertension ICD-10 I10 Resting Blood Pressure:: 111/71 [place] [employer] Hypertension Guidelines Outcomes/Goals: Able to verbalize/achieve optimal blood pressure <130/80, Incorporates diet changes & exercise for blood pressure control by DC and Other additional outcomes/goals Interventions/plan: Instruct on optimal blood pressure, hypertension & medications, Instruct on effects of sodium, alcohol, stress, exercise &hypertension and Other additional plan/interventions Tobacco Cessation Referral Smoking Cessation Referral:: No Individual Education/Counseling:: No Education Schedule Given:: Yes Psychosocial - Initial Assess VIsit Date of Eval: 09/06/23 (initial eval ) History of previous Mental disease:: No Target Goals Target Goals Outcomes/Goals: See list Psychosocial Outcomes/Goals:: ID's personal stressors & 2 strategies to manage stress by discharge and Other Additional outcome/goals: Intervention/Plan: See List Interventions/Plan:: Assess stressors,coping strategies & signs of derpression on admission, Instruct/assist pt to develop coping & personal stress Mgt strategies, Refer to Behavioral Health if appropriate, Refer to Physician if appropriate, Instruct patient to recognize signs & symptoms of depression, Instruct patient to recog and Other additional plan/intervention Patient Health Questionnaire PHQ-9 Screening Initial Assessment: 1. Little interest or pleasure in doing things: Not at all 2. Feeling down, depressed, or hopeless: Not at all 3. Trouble falling or staying asleep, or sleeping too much: Several days 4. Feeling tired or having little energy: More than half the days 5. Poor appetite or overeating: Not at all 6. Feeling bad about yourself -- or that you are a failure or have let yourself or your family down: Not at all 7. Trouble concentrating on things, such as reading the newspaper or watching television: Not at all 8. Moving or speaking so slowly that other people could have noticed. Or the opposite - being so fidgety or restless that you have been moving around a lot more than usual: Not at all 9. Thoughts that you would be better off , or of hurting yourself in some way: Not at all How difficult have these problems made it for you to do your work, take care of things at home, or get along with other people?: Somewhat difficult Total Score: 3 [id number]-[id number] SV Test Statements CAD is a disease of the arteries in the heart: False Examples of risk factors for heart disease: True Angina is chest pain or discomfort: True The benefits of resistance training include: True Eating more meat and dairy products: False Anti-platelet medications such as aspirin are important: True The only effective way to manage stress: False An exercise warm-up slowly increases heart rate: I Don't Know Prepared, processed foods usually have high sodium: True Depression is common after a heart attack: True The statin medications lower cholesterol: True To control blood pressure, lower the amount of sodium: True If someone gets chest discomfort during walking: False Transfats are partially hydrogenated vegetable oils: True Sleep apnea that is not treated increases the risk: True To control cholesterol, one should become a vegetarian: False Someone knows if he/she is exercising at the right level: True Diabetes cannot be prevented with exercise & health eating: I Don't Know Stress is a large risk for heart attack: True A diet that can help lower blood pressure is rich in: True Total Score Total Correct Responses: 17 Self-Efficacy 6-Item Scale Initial Assessment: We would like to know how confident you are in doing certain activities. Please select your confidence level for: Fatigue Select Number: 4 Physical Discomfort or Pain Select Number: 4 Emotional Distress Select Number: 6 Other Symptoms or Health Problems Select Number: 6 Different Tasks and Activities Select Number: 10 Medication Select Number: 10 Total Score:: 6 Nutrition Survey Nutrition Survey Instructions Scoring Instructions Nutrition Survey Initial: Have you lost >10 lbs over the past 2 months without trying?: No Are you following a special diet at home for diabetes, low fat, or low salt?: Yes Are you interested in meeting with a dietitian for help understanding your diet?: Yes Do you eat less than 3 meals a day?: Yes Do you eat fatty meats (santiago, sausage, ribs, etc), fried foods, desserts, large amounts of salad dressings, margarine, butter, or cheese most days?: No Do you have food allergies? [Enter types in comment field]: No Do you eat in restaurants more than 3 times a week?: No Do you season food with salt, seasoning salt, or garlic salt?: Yes Do you used canned, boxed, frozen meals, or soups, seasoning packets?: No Total Score:: 4 Exercise - 30-day Assessment Physician Prescribed Exercise Modalities: Treadmill, Schwinn Airdyne AD-7, SciFit Stepper, SciFit Pro-II Ergometer and SciFit Lateral Administrative Executive Exercise - 60-day Assessment Physician Prescribed Exercise Modalities: Treadmill, Schwinn Airdyne AD-7, SciFit Stepper, SciFit Pro-II Ergometer and SciFit Lateral Administrative Executive Exercise - 90-day Assessment Physician Prescribed Exercise Modalities: Treadmill, Schwinn Airdyne AD-7, SciFit Stepper, SciFit Pro-II Ergometer and SciFit Lateral [place] Exercise - Final/Discharge Physician Prescribed Exercise Modalities: Treadmill, Schwinn Airdyne AD-7, SciFit Stepper, SciFit Pro-II Ergometer and SciFit Lateral Administrative Executive Frequency: 3x/week for 12 weeks [36 sessions] Intensity: 60-80% of age predicted maximum heart rate reserve Current METSs:: 3 Target Heart Rate:: 89-103 Nutrition - 30-Day Assessment Weight Mgt (Other Care) Height: 6 ft 3 in Weight:: 266 lb BMI: 33.2 Nutrition - 60-Day Assessment Weight Mgt (Other Care) Height: 6 ft 3 in Weight:: 266 lb BMI: 33.2 Core - Final Assessment Hypertension Resting Blood Pressure:: 111/71 [place] [employer] Hypertension Guidelines Core - 60-Day Assessment Hypertension Resting Blood Pressure:: 111/71 [place] [employer] Hypertension Guidelines Psychosocial - 30-Day Assess Target Goals Target Goals Psychosocial - 60-Day Assess Target Goals Target Goals Psychosocial - 90-Day Assess Target Goals Target Goals Psychosocial - Final Assessmen Target Goals Target Goals Nutrition - 90-Day Assessment Weight Mgt (Other Care) Height: 6 ft 3 in Weight:: 266 lb BMI: 33.2 Nutrition - Final Assessment Program Goals Patient has diagnosis of Hyperlipidemia (ICD E78)?: Yes Weight Mgt (Other Care) Height: 6 ft 3 in Weight:: 266 lb BMI: 33.2
[2023-09-06 10:18] VITALS: BP 111/71
[2023-09-06 10:29] VITALS: BP 111/71; O2SAT 93; BMI 33.2
[2023-09-06 11:00] VITALS: BMI 33.2
== END | disposition home or self-care (01) ==
LOC: CR 09:53
PROVIDERS: PCP Family Medicine; Referring Provider Internal Medicine Cardiovascular Disease; Visit Provider Internal Medicine Cardiovascular Disease
DX: Z00.00 Encounter for general adult medical examination without abnormal findings (principal)

== ENCOUNTER 2023-09-13 10:15 | Outpatient (RCR) | payer BC, SELFPAY ==
[2023-09-06 11:00] VITALS: BMI 33.2
== END 2023-09-13 23:59 ==
LOC: CR 10:15
PROVIDERS: PCP Family Medicine; Referring Provider Internal Medicine Cardiovascular Disease; Visit Provider Internal Medicine Cardiovascular Disease
DX: I25.10 Atherosclerotic heart disease of native coronary artery without angina pectoris (principal)
CPT/HCPCS: 93798

== ENCOUNTER → 2023-10-12 | Outpatient (CLI) | payer BC, SELFPAY ==
[2023-10-06 08:29] VITALS: BMI 34.1
[2023-10-12 12:39] LABS: Absolute Lymphocyte Count 1.66 X10^3/uL (0.83-4.51); Absolute Neutrophil Count 6.2 X10^3/uL (2.0-7.7); Basophil# 0.07 X10^3/uL; Basophil% 0.7 % (0-1); Eosinophil# 0.31 X10^3/uL; Eosinophils% 3.3 % (0-5); Hematocrit 41.3 % (40-54); Hemoglobin 13.3 g/dL (13.0-16.5); Lymphocyte # 1.66 X10^3/ul (0.83-4.51); Lymphocyte % 17.8 % (19-41); Mean Corp Hgb Conc 32.2 g/dL (32-36); Mean Corpuscular Hgb 29.7 pg (27.0-32.0); Mean Corpuscular Volume 92.2 fL (80-94); Monocyte% 11.8 % (0-10); NRBC Flagged by Analyzer 0 % (0-5); Neutrophil # 6.16 X10^3/uL (2.7-7.7); Neutrophil % 65.9 % (47-70); Platelet Count 245 K/mm3 (150-450); RBC Distribution Width SD 50.9 fl (35.1-43.9); Red Blood Count 4.48 M/mm3 (4.6-6.2); White Blood Count 9.4 K/mm3 (4.4-11.0)
[2023-10-12 12:45] LABS: Vitamin B12 308 pg/mL (211-911)
[2023-10-12 12:47] LABS: Iron 74 ug/dL (65-175); Iron Binding Capacity,Total 287 ug/dL (250-450); PERCENT IRON SATURATION 25.8 % (15.0-55.0)
== END | disposition home or self-care (01) ==
LOC: MFPLAB 09:34
PROVIDERS: PCP Family Medicine; Visit Provider Family Medicine
DX: D64.9 Anemia, unspecified (principal)
CPT/HCPCS: 36415; 82607; 83540; 83550; 85025

== ENCOUNTER 2023-10-13 10:15 | Outpatient (RCR) | payer BC, SELFPAY ==
[2023-09-06 11:00] VITALS: BMI 33.2
--- NOTE | 2023-10-06 08:21 | PCM.CR.ITP ---
Exercise - Initial Assessment Visit Session #:: 12 Physician Prescribed Exercise Modalities: Treadmill, Schwinn Airdyne AD-7 and SciFit Stepper Nutrition - Initial Assessment Weight Mgt (Other Care) Height: 6 ft 3 in Weight:: 273 lb BMI: 34.1 Psychosocial - Initial Assess Target Goals Target Goals Patient Health Questionnaire PHQ-9 Screening 30-Day Re-eval Assessment: 1. Little interest or pleasure in doing things: Not at all 2. Feeling down, depressed, or hopeless: Not at all 3. Trouble falling or staying asleep, or sleeping too much: Several days 4. Feeling tired or having little energy: More than half the days 5. Poor appetite or overeating: Not at all 6. Feeling bad about yourself -- or that you are a failure or have let yourself or your family down: Not at all 7. Trouble concentrating on things, such as reading the newspaper or watching television: Not at all 8. Moving or speaking so slowly that other people could have noticed. Or the opposite - being so fidgety or restless that you have been moving around a lot more than usual: Not at all 9. Thoughts that you would be better off , or of hurting yourself in some way: Not at all How difficult have these problems made it for you to do your work, take care of things at home, or get along with other people?: Somewhat difficult Total Score: 3 Nutrition Survey Nutrition Survey Instructions Scoring Instructions Exercise - 30-day Assessment Visit Date of Eval: 10/06/23 Session #:: 12 Physician Prescribed Exercise Modalities: Treadmill, Schwinn Airdyne AD-7 and SciFit Stepper Frequency: 3x/week for 12 weeks [36 sessions] Intensity: 60-80% of age predicted maximum heart rate reserve Duration: 30 - 45 minutes Current METSs:: 3.7 Target Heart Rate:: 89-103 Current RPE:: 11-12 Maximum Excercise HR:: 93 Resting Blood Pressure: 108/62 Maximum Exercise Blood Pressure: 120/62 EKG Type: NSR with rare PAC Outcomes & Goals Goals:: Verbalizes understanding of THR, RPE & goal METS by session 6, Documents in home exercise log/reports 30 min aerobic 5 day/wk by DC, Demonstrates accurate pulse taking by DC and Other additional outcome/goals: see below Intervention & Plan Exercise Program Goals: Instruct on personal THR & RPE, Instruct on MET level & personal MET goal, Show patient to take own pulse /validate performance until accurate, Instruct on home exercise and Other additional plan/int 30-day Reassessments 30 day Reassessments:: Progressing Reassessment Notes & Comments:: RPE explained Physical Activity Home Exercise Physical Activity - Home Exercise: Safe Exercise, Warm-up, Self-monitoring, Cool-Down, Home Exercise > 30 min Daily and Sitting Time <3 hours/daily Outcomes & Goals Outcomes/Goals: Demonstrates correct Warm-up/exercise Cool-Down (S3) if = 2.5 METs, Verbalizes symptoms of exercise intolerance by Session 3 (S3), Demonstrate safe equipment use (S3) & follows exercise prescrition (6) and Other: See below Intervention & Plan Plan/Intervention: Instruct warm-up & cool-down if exercising at > 2 METs, Instruct on symptoms of exercise intolerance & actions to take, Instruct & monitor on saf, Assess intial functional capacity & safety risk and Other See below 30-day Reassessments 30 day Reassessments:: Progressing Reassessment Notes & Comments:: warm up encouraged Exercise - 60-day Assessment Physician Prescribed Exercise Modalities: Treadmill, Schwinn Airdyne AD-7 and SciFit Stepper Exercise - 90-day Assessment Physician Prescribed Exercise Modalities: Treadmill, Schwinn Airdyne AD-7 and SciFit Stepper Exercise - Final/Discharge Physician Prescribed Exercise Modalities: Treadmill, Schwinn Airdyne AD-7 and SciFit Stepper Nutrition - 30-Day Assessment Program Goals Nutrition Program Goals Patient has diagnosis of Hyperlipidemia (ICD E78)?: Yes Visit Date of Eval: 10/06/23 Session #:: 12 Cholesterol/Lipids (Other Core Measures) Determine presence & major risk factors that modify LDL goal: Hypertension or hypertensive medication, Low HDL cholesterol <40 mg/dL*, Family history of premature CHD in Male < 55 years: female <65 yearsFa and Age men > 45 years; women >/= 55 years Outcomes/Goals: Pt IDs own risk factors & lifestyle modifications by Session 10, Verbalizes symptoms of angina & response by session 3., Pt independently manages and Other Additional Outcomes/Goals: Intervention/Plan: Advocate for lipid panel cholesterol medication if applicable, Instruct on personal lipid levels & lipid goals/NCEP guidelines, Instruct on cholesterol and Other additional plan/int 30-day Reassessments:: Progressing Reassessment Notes & Comments:: pt to attend nutrition class Diabetes (Other Core Measures) Diabetes Type: Diagnosis Type II ICD-10 E11 Insulin dependent injection/pump?: No Non-Insulin Dependent?: Yes Do you monitor your blood sugar at home?: Yes Referral to Diabetic Clinic:: No Outcomes/Goals:: Able to state symptoms of, Able to state, Able to state and Other additional Intervention/Plan:: Instruct on, Refer to, Instruct on and Other 30-day Reassessments:: Progressing Reassessment Notes & Comments:: Pt to attend nutrition class Weight Mgt (Other Care) Height: 6 ft 3 in Weight:: 273 lb BMI: 34.1 Diagnosis Overweight/Obesity BMI> 30% ICD-10 E66: Yes Diagnosis High BMI/Morbid Obesity BMI> 35% ICD-10 Z68: No Outcomes/Goals: Pt sets, maintains & shows weight loss goal & trend during rehab and Other additional outcomes/goals Intervention/Plan: Instruct on ideal BMI & set weight loss goal w/patient, Assist pt to ID & incorporate diet changes for weight loss by S9, Refer to Structured Weight Loss program as appropriate, Encourage goal of using 250-300dcal per session for weight loss and Other additional plan/interventions 30 day Reassessments:: Progressing Reassessment Notes & Comments:: Pt to attend nutrition class Healthy Eating Habits Will attend diet classes:: Yes Outcomes/Goals:: Consume diet rich in vegs,fruits,whole grain/high fiber,fish,lean meat, Limit sat/trans fats,cholesterol & added salts & sugars and Other additional outcome/goals: Intervention/Plan:: Assess current eating habits and Other Additional plan/interventions 30-day Reassessments:: Progressing Reassessment Notes & Comments:: Pt to attend nutrition class Education Gave educational materials for:: Signs & symptoms of hypoglycemia, Signs & symptoms of hyperglycemia, Relate diabetes to coronary artery disease and Healthy eating Nutrition - 60-Day Assessment Weight Mgt (Other Care) Height: 6 ft 3 in Weight:: 273 lb BMI: 34.1 Core - 30-Day Assessment Visit Date of Eval: 10/06/23 Session #:: 12 Medication Compliance Preventative Medication(s):: Aspirin, Statin/lipid and Beta silvano H/O mental health issues: depression, anxiety, or addiction?: No Doesn?t believe in the benefits of treatment?: No Believes medications are unnecessary or harmful?: No Has a concern about medication side effects?: No Expresses concern over the cost of medications?: No Outcomes/Goals: Verbalizes medications,desired effect & common side effects @ DC, Pt self-reports following medication regimen, Keeps card in wallet w/medications listed by DC and Other additional outcome/goals: Interventions/plans: Instruct on medication effects & side effects, Review medication list w/patient every two weeks, Instruct importance of taking meds as ordered & assist problem solving and Other additional 30-day Reassessments:: Progressing Reassessment Notes & Comments:: pt encouraged to take his meds as prescribed Hypertension Hypertension Diagnosis:: Hypertension ICD-10 I10 Resting Blood Pressure:: 108/62 Citizen [place] Heart Association Hypertension Guidelines Peak Exercise Blood Pressure:: 120/62 Outcomes/Goals: Able to verbalize/achieve optimal blood pressure <130/80, Incorporates diet changes & exercise for blood pressure control by DC and Other additional outcomes/goals Interventions/plan: Instruct on optimal blood pressure, hypertension & medications, Instruct on effects of sodium, alcohol, stress, exercise &hypertension and Other additional plan/interventions 30 day Reassessments:: Progressing Reassessment Notes & Comments:: BP's within normal limits Tobacco Cessation Referral Smoking Cessation Referral:: No Individual Education/Counseling:: No Education Schedule Given:: Yes Psychosocial - 30-Day Assess VIsit Date of Eval: 10/06/23 Session #:: 12 History of previous Mental disease:: No Target Goals Target Goals Outcomes/Goals: See list Psychosocial Outcomes/Goals:: ID's personal stressors & 2 strategies to manage stress by discharge and Other Additional outcome/goals: Intervention/Plan: See List Interventions/Plan:: Assess stressors,coping strategies & signs of derpression on admission, Instruct/assist pt to develop coping & personal stress Mgt strategies, Refer to Behavioral Health if appropriate, Refer to Physician if appropriate, Instruct patient to recognize signs & symptoms of depression, Instruct patient to recog and Other additional plan/intervention 30-day Reassessments: 30 day Reassessments:: Met Psychosocial - 60-Day Assess Target Goals Target Goals Outcomes/Goals: See list Psychosocial Outcomes/Goals:: ID's personal stressors & 2 strategies to manage stress by discharge and Other Additional outcome/goals: Psychosocial - 90-Day Assess Target Goals Target Goals Psychosocial - Final Assessmen Target Goals Target Goals Nutrition - 90-Day Assessment Weight Mgt (Other Care) Height: 6 ft 3 in Weight:: 273 lb BMI: 34.1 Nutrition - Final Assessment Weight Mgt (Other Care) Height: 6 ft 3 in Weight:: 273 lb BMI: 34.1
[2023-10-06 08:29] VITALS: BP 108/62; BMI 34.1
== END 2023-10-14 23:59 ==
LOC: CR 10:15
PROVIDERS: PCP Family Medicine; Referring Provider Internal Medicine Cardiovascular Disease; Visit Provider Internal Medicine Cardiovascular Disease
DX: I25.10 Atherosclerotic heart disease of native coronary artery without angina pectoris (principal)
CPT/HCPCS: 93798

== ENCOUNTER 2023-11-13 10:15 | Outpatient (RCR) | payer BC, SELFPAY ==
[2023-10-06 08:29] VITALS: BMI 34.1
[2023-10-15 00:20] VITALS: BP 108/62
--- NOTE | 2023-11-07 07:10 | CR.ITP_ITS ---
Exercise - Initial Assessment Physician Prescribed Exercise Modalities: Treadmill, Schwinn Airdyne AD-7 and SciFit Stepper Nutrition - Initial Assessment Weight Mgt (Other Care) Height: 6 ft 3 in Weight:: 280 lb BMI: 34.9 Psychosocial - Initial Assess Target Goals Target Goals Referral to Behavioral Health PS - Interventions: Yes: Attend Stress Management Classes Patient Health Questionnaire PHQ-9 Screening 60-Day Re-eval Assessment: 1. Little interest or pleasure in doing things: Not at all 2. Feeling down, depressed, or hopeless: Not at all 3. Trouble falling or staying asleep, or sleeping too much: Several days 4. Feeling tired or having little energy: More than half the days 5. Poor appetite or overeating: Not at all 6. Feeling bad about yourself -- or that you are a failure or have let yourself or your family down: Not at all 7. Trouble concentrating on things, such as reading the newspaper or watching television: Not at all 8. Moving or speaking so slowly that other people could have noticed. Or the opposite - being so fidgety or restless that you have been moving around a lot more than usual: Not at all 9. Thoughts that you would be better off , or of hurting yourself in some way: Not at all How difficult have these problems made it for you to do your work, take care of things at home, or get along with other people?: Somewhat difficult Total Score: 3 Self-Efficacy 6-Item Scale 60-Day Re-eval Assessment: We would like to know how confident you are in doing certain activities. Please select your confidence level for: Fatigue Select Number: 4 Physical Discomfort or Pain Select Number: 4 Emotional Distress Select Number: 6 Other Symptoms or Health Problems Select Number: 6 Different Tasks and Activities Select Number: 10 Medication Select Number: 10 Total Score:: 6 Nutrition Survey Nutrition Survey Instructions Scoring Instructions Exercise - 30-day Assessment Physician Prescribed Exercise Modalities: Treadmill, Schwinn Airdyne AD-7 and SciFit Stepper Exercise - 60-day Assessment Visit Date of Eval: 11/07/23 Session #:: 25 Physician Prescribed Exercise Modalities: Treadmill, Schwinn Airdyne AD-7 and SciFit Stepper Frequency: 3x/week for 12 weeks [36 sessions] Intensity: 60-80% of age predicted maximum heart rate reserve Duration: 30 - 45 minutes Current METSs:: 4 Target Heart Rate:: 89-103 Current RPE:: 12-12.5 Maximum Excercise HR:: 103 Resting Blood Pressure: 116/56 Maximum Exercise Blood Pressure: 142/64 EKG Type: NSR to ST with rare PVC Outcomes & Goals Goals:: Verbalizes understanding of THR, RPE & goal METS by session 6, Documents in home exercise log/reports 30 min aerobic 5 day/wk by DC, Demonstrates accurate pulse taking by DC and Other additional outcome/goals: see below Intervention & Plan Exercise Program Goals: Instruct on personal THR & RPE, Instruct on MET level & personal MET goal, Show patient to take own pulse /validate performance until accurate, Instruct on home exercise and Other additional plan/int 30-day Reassessments 30 day Reassessments:: Progressing Reassessment Notes & Comments:: MET's explained in exercise class and pt is able to demonstrate understanding Physical Activity Home Exercise Physical Activity - Home Exercise: Safe Exercise, Warm-up, Self-monitoring, Cool-Down, Home Exercise > 30 min Daily and Sitting Time <3 hours/daily Outcomes & Goals Outcomes/Goals: Demonstrates correct Warm-up/exercise Cool-Down (S3) if = 2.5 METs, Verbalizes symptoms of exercise intolerance by Session 3 (S3), Demonstrate safe equipment use (S3) & follows exercise prescrition (6) and Other: See below Intervention & Plan Plan/Intervention: Instruct warm-up & cool-down if exercising at > 2 METs, Instruct on symptoms of exercise intolerance & actions to take, Instruct & monitor on saf, Assess intial functional capacity & safety risk and Other See below 30-day Reassessments 30 day Reassessments:: Progressing Reassessment Notes & Comments:: Cool down encouraged and explained. Pt is able to demonstrate understanding. Exercise - 90-day Assessment Physician Prescribed Exercise Modalities: Treadmill, Schwinn Airdyne AD-7 and SciFit Stepper Exercise - Final/Discharge Physician Prescribed Exercise Modalities: Treadmill, Schwinn Airdyne AD-7 and SciFit Stepper Nutrition - 30-Day Assessment Weight Mgt (Other Care) Height: 6 ft 3 in Weight:: 280 lb BMI: 34.9 Nutrition - 60-Day Assessment Program Goals Nutrition Program Goals Patient has diagnosis of Hyperlipidemia (ICD E78)?: Yes Visit Date of Eval: 11/07/23 Session #:: 25 Cholesterol/Lipids (Other Core Measures) Determine presence & major risk factors that modify LDL goal: Hypertension or hypertensive medication, Low HDL cholesterol <40 mg/dL*, Family history of premature CHD in Male < 55 years: female <65 yearsFa and Age men > 45 years; women >/= 55 years Outcomes/Goals: Pt IDs own risk factors & lifestyle modifications by Session 10, Verbalizes symptoms of angina & response by session 3., Pt independently manages and Other Additional Outcomes/Goals: Intervention/Plan: Advocate for lipid panel cholesterol medication if applicable, Instruct on personal lipid levels & lipid goals/NCEP guidelines, Instruct on cholesterol and Other additional plan/int 30-day Reassessments:: Progressing Reassessment Notes & Comments:: risk factors explained, pt encouraged to do his labs Diabetes (Other Core Measures) Diabetes Type: Diagnosis Type II ICD-10 E11 Insulin dependent injection/pump?: No Non-Insulin Dependent?: Yes Do you monitor your blood sugar at home?: Yes Referral to Diabetic Clinic:: No Outcomes/Goals:: Able to state symptoms of, Able to state, Able to state and O ther additional Intervention/Plan:: Instruct on, Refer to, Instruct on and Other 30-day Reassessments:: Progressing Reassessment Notes & Comments:: last pre exercise BS was 159 Weight Mgt (Other Care) Height: 6 ft 3 in Weight:: 280 lb BMI: 34.9 Diagnosis Overweight/Obesity BMI> 30% ICD-10 E66: Yes Diagnosis High BMI/Morbid Obesity BMI> 35% ICD-10 Z68: No Outcomes/Goals: Pt sets, maintains & shows weight loss goal & trend during rehab and Other additional outcomes/goals Intervention/Plan: Instruct on ideal BMI & set weight loss goal w/patient, Assist pt to ID & incorporate diet changes for weight loss by S9, Refer to Structured Weight Loss program as appropriate, Encourage goal of using 250- 300dcal per session for weight loss and Other additional plan/interventions 30 day Reassessments:: Progressing Reassessment Notes & Comments:: pt is to attend nutrition class and is enco uraged to meet with dietitian Healthy Eating Habits Will attend diet classes:: Yes Outcomes/Goals:: Consume diet rich in vegs,fruits,whole grain/high fiber,fish,lean meat, Limit sat/trans fats,cholesterol & added salts & sugars and Other additional outcome/goals: Intervention/Plan:: Assess current eating habits and Other Additional plan/interventions 30-day Reassessments:: Progressing Reassessment Notes & Comments:: pt to attend nutrition class Education Gave educational materials for:: Signs & symptoms of hypoglycemia, Signs & symptoms of hyperglycemia, Relate diabetes to coronary artery disease and Healthy eating Core - 60-Day Assessment Visit Date of Eval: 11/07/23 Session #:: 25 Medication Compliance Preventative Medication(s):: Aspirin, Statin/lipid and Beta silvano H/O mental health issues: depression, anxiety, or addiction?: No Doesn?t believe in the benefits of treatment?: No Believes medications are unnecessary or harmful?: No Has a concern about medication side effects?: No Expresses concern over the cost of medications?: No Outcomes/Goals: Verbalizes medications,desired effect & common side effects @ DC, Pt self-reports following medication regimen, Keeps card in wallet w/medications listed by DC and Other additional outcome/goals: Interventions/plans: Instruct on medication effects & side effects, Review medication list w/patient every two weeks, Instruct importance of taking meds as ordered & assist problem solving and Other additional 30-day Reassessments:: Progressing Reassessment Notes & Comments:: no med changes at this time. Pt is encouraged to take his meds as prescribed Tobacco Use Tobacco Use: Non-smoker Hypertension Hypertension Diagnosis:: Hypertension ICD-10 I10 Resting Blood Pressure:: 116/56 [place] [employer] Hypertension Guidelines Peak Exercise Blood Pressure:: 142/64 Outcomes/Goals: Able to verbalize/achieve optimal blood pressure <130/80, Incorporates diet changes & exercise for blood pressure control by DC and Other additional outcomes/goals Interventions/plan: Instruct on optimal blood pressure, hypertension & medications, Instruct on effects of sodium, alcohol, stress, exercise &hypertension and Other additional plan/interventions 30 day Reassessments:: Met Reassessment Notes & Comments:: Pt's BP's are within AHA normal limits. Pt encouraged to continue to take his meds as prescribed. Tobacco Cessation Referral Smoking Cessation Referral:: No Individual Education/Counseling:: No Education Schedule Given:: Yes Psychosocial - 30-Day Assess Target Goals Target Goals Referral to Behavioral Health PS - Interventions: Yes: Attend Stress Management Classes Outcomes/Goals: See list Psychosocial Outcomes/Goals:: ID's personal stressors & 2 strategies to manage stress by discharge and Other Additional outcome/goals: Psychosocial - 60-Day Assess VIsit Date of Eval: 11/07/23 Session #:: 25 History of previous Mental disease:: No Target Goals Target Goals Psychosocial Test Tool Used:: [employer] QOL Cardiac and PHQ-9 Questionnaire phq-9 Severity Referral to Behavioral Health PS - Interventions: Yes: Attend Stress Management Classes Outcomes/Goals: See list Psychosocial Outcomes/Goals:: ID's personal stressors & 2 strategies to manage stress by discharge and Other Additional outcome/goals: Intervention/Plan: See List Interventions/Plan:: Assess stressors,coping strategies & signs of derpression on admission, Instruct/assist pt to develop coping & personal stress Mgt strategies, Refer to Behavioral Health if appropriate, Refer to Physician if appropriate, Instruct patient to recognize signs & symptoms of depression, Instruct patient to recog and Other additional plan/intervention 30-day Reassessments: 30 day Reassessments:: Met Reassessment Notes & Comments:: Pt denies any psychosocial issues at this time. Psychosocial - 90-Day Assess Target Goals Target Goals Referral to Behavioral Health PS - Interventions: Yes: Attend Stress Management Classes Psychosocial - Final Assessmen Target Goals Target Goals Referral to Behavioral Health PS - Interventions: Yes: Attend Stress Management Classes Nutrition - 90-Day Assessment Weight Mgt (Other Care) Height: 6 ft 3 in Weight:: 280 lb BMI: 34.9 Nutrition - Final Assessment Weight Mgt (Other Care) Height: 6 ft 3 in Weight:: 280 lb BMI: 34.9
[2023-11-07 07:24] VITALS: BP 116/56; BMI 34.9
== END 2023-11-13 23:59 ==
LOC: CR 10:15
PROVIDERS: PCP Family Medicine; Referring Provider Internal Medicine Cardiovascular Disease; Visit Provider Internal Medicine Cardiovascular Disease
DX: I25.10 Atherosclerotic heart disease of native coronary artery without angina pectoris (principal)
CPT/HCPCS: 93798

== ENCOUNTER 2023-12-01 10:15 | Outpatient (RCR) | payer BC, SELFPAY ==
[2023-11-07 07:24] VITALS: BMI 34.9
[2023-11-14 00:11] VITALS: BP 108/62; BP 116/56
== END 2023-12-14 23:59 ==
LOC: CR 10:15
PROVIDERS: PCP Family Medicine; Referring Provider Internal Medicine Cardiovascular Disease; Visit Provider Internal Medicine Cardiovascular Disease
DX: I25.10 Atherosclerotic heart disease of native coronary artery without angina pectoris (principal)
CPT/HCPCS: 93798

== ENCOUNTER → 2023-12-06 | Outpatient (CLI) | payer BC, SELFPAY ==
[2023-11-07 07:24] VITALS: BMI 34.9
[2023-12-06 12:22] LABS: Absolute Lymphocyte Count 1.45 X10^3/uL (0.83-4.51); Absolute Neutrophil Count 5.6 X10^3/uL (2.0-7.7); Basophil# 0.08 X10^3/uL; Basophil% 0.9 % (0-1); Eosinophil# 0.25 X10^3/uL; Hematocrit 37.2 % (40-54); Hemoglobin 12.5 g/dL (13.0-16.5); Lymphocyte # 1.45 X10^3/ul (0.83-4.51); Lymphocyte % 17.1 % (19-41); Mean Corp Hgb Conc 33.6 g/dL (32-36); Mean Corpuscular Hgb 31.6 pg (27.0-32.0); Mean Corpuscular Volume 93.9 fL (80-94); Mean Platelet Vol. 9.9 fl (6.2-12.0); Monocyte# 1.08 X10^3/uL; Monocyte% 12.8 % (0-10); NRBC Flagged by Analyzer 0 % (0-5); Neutrophil # 5.58 X10^3/uL (2.7-7.7); Neutrophil % 65.8 % (47-70); Platelet Count 222 K/mm3 (150-450); RBC Distribution Width CV 14.2 % (11.6-14.6); RBC Distribution Width SD 48.8 fl (35.1-43.9); Red Blood Count 3.96 M/mm3 (4.6-6.2); White Blood Count 8.5 K/mm3 (4.4-11.0)
[2023-12-06 12:39] LABS: ALB/GLOB Ratio 1.1 RATIO (0.9-2.4); AST(SGOT) 23 U/L (15-37); Alanine Aminotransfer ALT/SGPT 27 U/L (16-61); Albumin, Serum 3.8 g/dL (3.2-5.0); Alkaline Phosphatase 63 U/L (45-117); Anion Gap 6 (5-15); BUN 21 mg/dL (7-18); BUN/Creat Ratio 18.6 RATIO (10-20); Calcium,Total 9.7 mg/dL (8.5-10.1); Chloride 104 mmol/L (98-107); Cholesterol 108 mg/dL (200); Creatinine, Serum 1.13 mg/dL (0.70-1.30); EST Glomerular Filtration Rate 66 mL/min (>60); Est Glom Filt Rate - Afr Amer 80 mL/min (>60); Globulin 3.5 g/dL (2.2-4.2); Glucose 156 mg/dL (74-106); High Density Lipoprotein 41 mg/dL; Potassium 4.4 mmol/L (3.5-5.1); Protein, Total 7.3 g/dL (6.4-8.2); Sodium Level 134 mmol/L (136-145); Triglycerides 144 mg/dL; Very Low Density Lipoprotein 29 mg/dL (5-40)
[2023-12-06 12:42] LABS: Vitamin D,25 Hydroxy 25.7 ng/mL
[2023-12-06 12:49] LABS: Hemoglobin A1c 7.3 % (3.8-5.6)
[2023-12-06 13:34] LABS: Microalbumin,Random Urine 6.5 mg/L (NO RANGE EST.); Microalbumin:Creatinine Ratio 14.1 mg/g CRE (<30 mg/g CRE)
== END | disposition home or self-care (01) ==
PROVIDERS: PCP Family Medicine; Visit Provider Family Medicine
DX: E11.29 Type 2 diabetes mellitus with other diabetic kidney complication (principal); E11.69 Type 2 diabetes mellitus with other specified complication; E55.9 Vitamin D deficiency, unspecified
CPT/HCPCS: 36415; 80053; 80061; 82043; 82306; 82570; 83036; 85025

== ENCOUNTER → 2024-04-17 | Outpatient (CLI) | payer BC, SELFPAY ==
[2023-11-07 07:24] VITALS: BMI 34.9
[2024-04-17 12:39] LABS: Absolute Neutrophil Count 6.1 X10^3/uL (2.0-7.7); Basophil# 0.08 X10^3/uL; Basophil% 0.8 % (0-1); Eosinophil# 0.35 X10^3/uL; Eosinophils% 3.7 % (0-5); Hematocrit 40.5 % (40-54); Hemoglobin 13.5 g/dL (13.0-16.5); Lymphocyte % 17.8 % (19-41); Mean Corp Hgb Conc 33.3 g/dL (32-36); Mean Corpuscular Hgb 31.8 pg (27.0-32.0); Mean Corpuscular Volume 95.3 fL (80-94); Mean Platelet Vol. 10.1 fl (6.2-12.0); Monocyte# 1.28 X10^3/uL; Monocyte% 13.4 % (0-10); NRBC Flagged by Analyzer 0 % (0-5); Neutrophil # 6.07 X10^3/uL (2.7-7.7); Neutrophil % 63.7 % (47-70); Platelet Count 236 K/mm3 (150-450); RBC Distribution Width CV 13.4 % (11.6-14.6); RBC Distribution Width SD 47.2 fl (35.1-43.9); Red Blood Count 4.25 M/mm3 (4.6-6.2); White Blood Count 9.5 K/mm3 (4.4-11.0)
[2024-04-17 13:06] LABS: Hemoglobin A1c 7.6 % (<=5.6)
[2024-04-17 13:08] LABS: Microalbumin,Random Urine < 12.0 mg/L (NO RANGE EST.); Microalbumin:Creatinine Ratio UNABLE TO CALCULATE mg/g CRE
[2024-04-17 13:13] LABS: ALB/GLOB Ratio 1.5 RATIO (0.9-2.4); AST(SGOT) 27 U/L (<=37); Alanine Aminotransfer ALT/SGPT 21 U/L (<=46); Albumin, Serum 4.3 g/dL (3.4-4.8); Alkaline Phosphatase 62 U/L (40-129); Anion Gap 13 (5-15); BUN 24 mg/dL (4-19); BUN/Creat Ratio 19.3 RATIO (10-20); Calcium,Total 9.6 mg/dL (7.6-11.0); Carbon Dioxide 21.7 mmol/L (21.0-32.0); Chloride 99 mmol/L (98-108); Cholesterol 127 mg/dL (<=200); Creatinine, Serum 1.24 mg/dL (0.70-1.20); EST Glomerular Filtration Rate 58 (>60); Ferritin 330 ng/mL (37-417); Glucose 159 mg/dL (70-99); High Density Lipoprotein 35 mg/dL; Low Density Lipoprotein Calc. 46 mg/dL; Potassium 4.4 mmol/L (3.3-5.1); Protein, Total 7.3 g/dL (5.9-8.4); Sodium Level 133 mmol/L (133-145); Total Bilirubin 0.64 mg/dL (0.00-1.30); Triglycerides 230 mg/dL; Very Low Density Lipoprotein 46 mg/dL (5-40); Vitamin B12 361 pg/mL (180-914); Vitamin D,25 Hydroxy 33.2 ng/mL (30-100)
[2024-04-17 14:08] LABS: Iron 60 ug/dL (65-175); Iron Binding Capacity,Unsat 226 ug/dL (228-428)
[2024-04-17 15:23] LABS: FOLATES,SERUM (FOLIC ACID) 8.96 ng/mL (4.60-34.80)
== END | disposition home or self-care (01) ==
LOC: MFPLAB 09:37
PROVIDERS: PCP Family Medicine; Referring Provider Family Medicine; Visit Provider Family Medicine
DX: E11.8 Type 2 diabetes mellitus with unspecified complications (principal); D64.9 Anemia, unspecified
CPT/HCPCS: 36415; 80053; 80061; 82043; 82306; 82570; 82607; 82728; 82746; 83036; 83540; 83550; 85025

== ENCOUNTER → 2024-06-13 | Outpatient (CLI) | payer BC, SELFPAY ==
[2023-11-07 07:24] VITALS: BMI 34.9
--- NOTE | 2024-06-13 15:59 | VDLE_ITS ---
Reason For Study Reason For Study: Left leg swelling RIGHT LEFT CFV is compressible, spontaneous, phasic, competent CFV is compressible, spontaneous, phasic, competent, and demonstrates normal augmentation. and demonstrates normal augmentation. Procedure FV is compressible, spontaneous, phasic, competent This is a venous duplex using B-mode, color flow and and demonstrates normal augmentation. spectral Doppler. POP V is compressible, spontaneous, phasic, competent Exam performed in department. and demonstrates normal augmentation. A preliminary report was called and/or faxed to T/P Trunk is compressible. Liliana. PTV is compressible. LT PerV is compressible. VL/Venous Duplex US, Unilateral Interpretation Summary Deep veins of the left lower extremity are patent and compressible segmentally. There is no evidence of left lower extremity deep vein thrombosis. Ordering Physician: Estrada Ford Referring Physician: Estrada Ford Performed By: Lisa Loyola RVT
== END | disposition home or self-care (01) ==
PROVIDERS: PCP Family Medicine; Referring Provider Family Medicine; Visit Provider Family Medicine
DX: M79.89 Other specified soft tissue disorders (principal)
CPT/HCPCS: 93971

== ENCOUNTER → 2024-07-15 | Outpatient (CLI) | payer BC, SELFPAY ==
[2023-11-07 07:24] VITALS: BMI 34.9
[2024-07-15 12:30] LABS: Hemoglobin A1c 6.8 % (<=5.6)
[2024-07-15 12:55] LABS: Microalbumin,Random Urine < 12.0 mg/L (NO RANGE EST.); Microalbumin:Creatinine Ratio UNABLE TO CALCULATE mg/g CRE
[2024-07-15 13:05] LABS: ALB/GLOB Ratio 1.6 RATIO (0.9-2.4); AST(SGOT) 30 U/L (<=37); Alanine Aminotransfer ALT/SGPT 26 U/L (<=46); Albumin, Serum 4.7 g/dL (3.4-4.8); Alkaline Phosphatase 68 U/L (40-129); Anion Gap 11 (5-15); BUN 24 mg/dL (4-19); BUN/Creat Ratio 20.5 RATIO (10-20); Calcium,Total 9.6 mg/dL (7.6-11.0); Carbon Dioxide 23.4 mmol/L (21.0-32.0); Chloride 101 mmol/L (98-108); Cholesterol 126 mg/dL (<=200); Creatinine, Serum 1.15 mg/dL (0.70-1.20); EST Glomerular Filtration Rate 63 (>60); Ferritin 316 ng/mL (37-417); Glucose 143 mg/dL (70-99); High Density Lipoprotein 40 mg/dL; Low Density Lipoprotein Calc. 48 mg/dL; Potassium 4.4 mmol/L (3.3-5.1); Protein, Total 7.7 g/dL (5.9-8.4); Sodium Level 136 mmol/L (133-145); Total Bilirubin 0.62 mg/dL (0.00-1.30); Triglycerides 194 mg/dL; Very Low Density Lipoprotein 39 mg/dL (5-40); cholesterol:hdl ratio screen 3.17
[2024-07-15 13:49] LABS: Iron 56 ug/dL (65-175); Iron Binding Capacity,Total 304 ug/dL (250-450); Iron Binding Capacity,Unsat 248 ug/dL (228-428)
[2024-07-15 13:51] LABS: Absolute Lymphocyte Count 1.71 X10^3/uL (0.83-4.51); Absolute Neutrophil Count 7.2 X10^3/uL (2.0-7.7); Basophil% 0.9 % (0-1); Eosinophil# 0.32 X10^3/uL; Hematocrit 42.8 % (40-54); Hemoglobin 14.2 g/dL (13.0-16.5); Lymphocyte # 1.71 X10^3/ul (0.83-4.51); Lymphocyte % 16.1 % (19-41); Mean Corp Hgb Conc 33.2 g/dL (32-36); Mean Corpuscular Hgb 31.6 pg (27.0-32.0); Mean Corpuscular Volume 95.3 fL (80-94); Mean Platelet Vol. 10.1 fl (6.2-12.0); Monocyte# 1.21 X10^3/uL; Monocyte% 11.4 % (0-10); NRBC Flagged by Analyzer 0 % (0-5); Neutrophil # 7.22 X10^3/uL (2.7-7.7); Neutrophil % 68.1 % (47-70); Platelet Count 248 K/mm3 (150-450); RBC Distribution Width CV 13.8 % (11.6-14.6); RBC Distribution Width SD 48.8 fl (35.1-43.9); Red Blood Count 4.49 M/mm3 (4.6-6.2); White Blood Count 10.6 K/mm3 (4.4-11.0)
== END | disposition home or self-care (01) ==
PROVIDERS: PCP Family Medicine; Referring Provider Family Medicine; Visit Provider Family Medicine
DX: D64.9 Anemia, unspecified (principal); E11.69 Type 2 diabetes mellitus with other specified complication; E11.29 Type 2 diabetes mellitus with other diabetic kidney complication; E55.9 Vitamin D deficiency, unspecified
CPT/HCPCS: 36415; 80053; 80061; 82043; 82306; 82570; 82728; 83036; 83540; 83550; 85025

== ENCOUNTER → 2024-11-15 | Outpatient (CLI) | payer BC, SELFPAY ==
[2023-11-07 07:24] VITALS: BMI 34.9
[2024-11-15 10:36] LABS: Hematocrit 39.6 % (40-54); Hemoglobin 13.6 g/dL (13.0-16.5); Immature Granulocytes Count 0.060 X10^3/uL (0.0-0.0); Mean Corp Hgb Conc 34.3 g/dL (32-36); Mean Corpuscular Volume 92.7 fL (80-94); Mean Platelet Vol. 9.9 fl (6.2-12.0); NRBC Flagged by Analyzer 0 % (0-5); Platelet Count 227 K/mm3 (150-450); RBC Distribution Width CV 14.0 % (11.6-14.6); RBC Distribution Width SD 47.3 fl (35.1-43.9); Red Blood Count 4.27 M/mm3 (4.6-6.2); White Blood Count 9.8 K/mm3 (4.4-11.0)
[2024-11-15 12:51] LABS: Creatinine, Urine (random) 62.00 mg/dL (39.00-259.00); Microalbumin,Random Urine < 12.0 mg/L (<20 mg/L)
[2024-11-15 13:12] LABS: AST(SGOT) 29 U/L (<=37); Alanine Aminotransfer ALT/SGPT 30 U/L (<=46); Albumin, Serum 4.2 g/dL (3.4-4.8); Alkaline Phosphatase 61 U/L (40-129); Anion Gap 13 (5-15); BUN 25 mg/dL (4-19); BUN/Creat Ratio 20.5 RATIO (10-20); Calcium,Total 9.3 mg/dL (7.6-11.0); Carbon Dioxide 20.6 mmol/L (21.0-32.0); Chloride 103 mmol/L (98-108); Cholesterol 118 mg/dL (<=200); Globulin 2.8 g/dL (2.2-4.2); Glucose 152 mg/dL (70-99); Low Density Lipoprotein Calc. 38 mg/dL; Potassium 5.1 mmol/L (3.3-5.1); Triglycerides 224 mg/dL; Very Low Density Lipoprotein 45 mg/dL (5-40); Vitamin D,25 Hydroxy 34.7 ng/mL (30-100); cholesterol:hdl ratio screen 3.31
== END | disposition home or self-care (01) ==
LOC: MFPLAB 09:46
PROVIDERS: PCP Family Medicine; Visit Provider Family Medicine
DX: E11.8 Type 2 diabetes mellitus with unspecified complications (principal)
CPT/HCPCS: 36415; 80053; 80061; 82043; 82306; 82570; 83036; 85025

== ENCOUNTER → 2024-12-02 | Outpatient (CLI) | payer BC, SELFPAY ==
[2023-11-07 07:24] VITALS: BMI 34.9
--- NOTE | 2024-12-02 10:44 | CDU_ITS ---
Reason For Study Reason For Study: Carotid Stenosis Rt. Velocities/BP Lt. Velocities/BP Prox CCA 94/23 cm/sec. Prox CCA 109/22 cm/sec. Mid CCA 80/16 cm/sec. Mid CCA 107/26 cm/sec. Dist CCA 140/23 cm/sec. Dist CCA 78/17 cm/sec. Prox ICA 75/17 cm/sec. Prox ICA 78/17 cm/sec. Mid ICA 91/22 cm/sec. Mid ICA 77/18 cm/sec. Dist ICA 82/27 cm/sec. Dist ICA 83/26 cm/sec. Rt. ICA/CCA = 1.1. Lt. ICA/CCA = 0.8. Prox ECA 89/10 cm/sec. Prox ECA 129/12 cm/sec. Rt. Vert. 40/10 cm/sec. Lt. Vert. 31/10 cm/sec. Right Extracranial There is heterogeneous, irregular atherosclerotic plaque noted in the right common carotid artery. There is heterogeneous, irregular atherosclerotic plaque noted in the right internal carotid artery. The atherosclerotic plaque causes acoustic shadowing. There is intimal thickening but no significant atherosclerotic plaque noted in the right external carotid artery. Antegrade flow is noted in the right vertebral artery. Left Extracranial There is heterogeneous, irregular atherosclerotic plaque noted in the left common carotid artery. There is heterogeneous, irregular atherosclerotic plaque noted in the left internal carotid artery. There is intimal thickening but no significant atherosclerotic plaque noted in the left external carotid artery. Antegrade flow is noted in the left vertebral artery. Procedure Carotid Duplex 05015. This is a Carotid Duplex examination using B-mode, color flow and specral Doppler. Exam performed in department. VL/Carotid Duplex Ultrasound Interpretation Summary Mild (<50%) stenosis right extracranial internal carotid. Mild (<50%) stenosis left extracranial internal carotid. Patent and antegrade vertebrals bilaterally. Ordering Physician: Estrada Ford Referring Physician: Estrada Ford Performed By: Roof, Radha, RDCS, RVT
== END | disposition home or self-care (01) ==
LOC: CVS 10:43
PROVIDERS: PCP Family Medicine; Referring Provider Family Medicine; Visit Provider Family Medicine
DX: I65.23 Occlusion and stenosis of bilateral carotid arteries (principal)
CPT/HCPCS: 93880

== ENCOUNTER 2025-01-18 10:07 | Emergency (ER) | payer BC, SELFPAY ==
[2023-11-07 07:24] VITALS: BMI 34.9
[2025-01-18 10:07] VITALS: BP 157/75; PULSE 65; RESP 16; TEMP 36.5; O2SAT 95; BMI 35.1
--- NOTE | 2025-01-18 10:19 | CT_ITS ---
PROCEDURE: CTA HEAD AND NECK W/ CONTRAST 01/18/2025 REASON FOR EXAM: DISSEQUILIBRIUM TECHNIQUE: Procedure Code: CTCTA.HDNCK Modality: CT Procedure: CTA HEAD AND NECK W/ CONTRAST Multiplanar Sagittal and Coronal images were obtained. CONTRAST: Isovue 370 VOLUME: 100 mL One or more dose reduction techniques were used (e.g., Automated exposure control, adjustment of the mA and/or kV according to patient size, use of iterative reconstruction technique). RADIATION DOSE SUMMARY: CTDlvol: 20.08 mGy DLP: 847.50 mGycm COMPARISON: None. FINDINGS: Aortic Arch: Normal size and branching pattern. No significant atherosclerotic plaque. Brachiocephalic and Subclavians: Unremarkable RIGHT Carotid: Right CCA: Unremarkable. Right ICA: Unremarkable. Right ECA: Unremarkable. LEFT Carotid: Left CCA: Unremarkable. Left ICA: Unremarkable. Left ECA: Unremarkable. Vertebrals: Codominant. Arise from the subclavians. Both vertebrals form the basilar. RIGHT Vertebral: Unremarkable. LEFT Vertebral: Unremarkable. Anatomy: [place] anatomy is normal. Aneurysm or avm: No intracranial aneurysms or large vascular malformations are identified. Anterior cerebral arteries: Unremarkable: Middle cerebral arteries: Unremarkable. Basilar artery: Unremarkable. Posterior cerebral arteries: Unremarkable. Other major branches of the posterior circulation: Unremarkable. Major venous structures: Unremarkable. Other findings: Neck: No lymphadenopathy. Lungs: Lung apices are clear. Bones: Bones are unremarkable. CT/CTA Head AND Neck W/ Contrast IMPRESSION: No hemodynamically significant stenosis in the head and neck. No aneurysm. Reading Location: [facility]
--- NOTE | 2025-01-18 10:19 | EKG12_ITS ---
Test Reason : GENERAL Blood Pressure : */* mmHG Vent. Rate : 66 BPM Atrial Rate : 66 BPM P-R Int : 208 ms QRS Dur : 122 ms QT Int : 428 ms P-R-T Axes : 27 -38 32 degrees QTcB Int : 448 ms Normal sinus rhythm Left axis deviation Non-specific intra-ventricular conduction delay Abnormal ECG Confirmed by ROGELIO CHAPMAN, KONRAD ([id number]), deputy editor in chief LILY DEVLIN ([id number]) on 01/20/2025 6:10:25 AM Referred By: Confirmed By: KONRAD MERCADO MD
--- NOTE | 2025-01-18 10:19 | CT_ITS ---
PROCEDURE: BRAIN/HEAD WITHOUT CONTRAST 01/18/2025 REASON FOR EXAM: DISSEQUILIBRIUM TECHNIQUE: Procedure Code: CTBR Modality: CT Procedure: BRAIN/HEAD WITHOUT CONTRAST Coronal and Sagittal reconstruction series were provided. One or more dose reduction techniques were used (e.g., Automated exposure control, adjustment of the mA and/or kV according to patient size, use of iterative reconstruction technique. COMPARISON: None available. FINDINGS: There is no extra-axial or intra-axial intracranial hemorrhage. No mass effect or midline shift is seen. Generalized intracranial volume loss and findings compatible with chronic microvascular white matter ischemia. There is normal hawk-white matter differentiation. The posterior fossa is grossly unremarkable. The skull is unremarkable. Visualized paranasal sinuses are clear. The mastoid air cells show normal translucency. CT/Brain/Head without Contrast IMPRESSION: 1. No intracranial hemorrhage. No mass effect or midline shift. 2. 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 Reading Location: [facility]
--- NOTE | 2025-01-18 10:20 | EX.ED.DYSGE1 ---
HPI History of Present Illness Chief Complaint: Neuro S/Sx Detail of Chief Complaint: Lightheaded and feeling off balance Informant: patient Narrative Narrative: Patient presents to the emergency department complaint of feeling lightheaded since last evening around 10 PM. Patient states that he was at a concert and felt fine and drove home without difficulty. He was standing in the kitchen making a sandwich when he started feeling unsteady and he had a hard time focusing his eyes. He went to bed and then this morning with continued similar symptoms. He describes his symptoms as mild. He denies headache but states he just does not feel right. He has history of coronary artery disease with prior CABG in 2023. Denies falls or head injuries. Denies recent illness. He states his blood pressure was slightly more elevated than usual for him with systolic up to 130 at home. No prior history of stroke. He is not anticoagulated other than baby aspirin [facility] Medical History Cellulitis of left lower leg Pericardial cyst History of left heart catheterization Cancer Myocardial infarct Type 2 diabetes mellitus with hyperglycemia History of hypercholesterolemia History of hypertension DM II (diabetes mellitus, type II), controlled Hyperlipidemia HTN (hypertension) Home Medications ?Medication ?Instructions ?Recorded ?Last Taken ?Type aspirin 81 mg tablet,delayed 81 mg PO DAILY@0800 07/15/14 01/17/25 History release atorvastatin 40 mg tablet 40 mg PO QHS 07/15/14 01/17/25 History coenzyme Q10 50 mg capsule (Co 200 mg PO DAILY 07/15/14 01/17/25 History Q-10) metformin 500 mg tablet,extended 500 mg PO BID 07/15/14 01/17/25 History release 24 hr ascorbic acid (vitamin C) 1,000 mg 1 g PO DAILY dietary supplement 06/02/23 01/17/25 History tablet (C-1000) cholecalciferol (vitamin D3) 25 25 mcg PO BID dietary supplement 06/02/23 06/29/23 History mcg (1,000 unit) capsule (Vitamin D3) metoprolol tartrate 25 mg tablet 25 mg PO BID 06/29/23 01/17/25 History furosemide 40 mg tablet 40 mg PO DAILY PRN if needed for 08/24/23 Unknown Rx weight gain of 3 pounds or more #30 TABLETS potassium chloride 20 mEq 20 meq PO DAILY PRN if needed take 08/24/23 Unknown Rx tablet,extended release with Furosemide #30 TABLETS calcium carbonate 500 mg PO QDAY 10/24/23 01/17/25 History valsartan 80 mg tablet 80 mg PO QDAY 10/24/23 01/17/25 History dapagliflozin propanediol 10 mg 10 mg PO DAILY 03/13/24 01/17/25 History tablet (Farxiga) magnesium oxide 400 mg PO QDAY 03/13/24 01/17/25 History glipizide 5 mg tablet, extended 5 mg PO QDAY 07/05/24 01/17/25 History release 24 hr zinc glycinate 30 mg capsule 15 mg PO DAILY 01/18/25 01/17/25 History Allergy/AdvReac Type Severity Reaction Status Date / Time No Known Allergies Allergy Verified 01/18/25 10:10 Family History Other Heart disease Surgical History Hx of CABG History of recent dental procedure Social History Smoking Status: Never smoker alcohol intake: current substance use type: does not use caffeine: Yes ROS ROS ED Review of Systems ROS Unobtainable: other Constitutional Constitutional ED: Reports lethargy; Denies chills, fever(s), sweats or weight loss Eyes Eyes: Reports other Details: Difficulty focusing eyes ; Denies blurry vision, change in vision or diplopia ENT ENT ED: Denies rhinorrhea or sore throat Cardiovascular Cardiovascular: Denies chest pain, orthopnea or racing heartbeat Respiratory/Chest Respiratory/Chest: Denies cough, dyspnea, dyspnea on exertion, orthopnea or sputum Gastrointestinal Gastrointestinal: Denies abdominal pain, diarrhea, nausea or vomiting Genitourinary Genitourinary ED: Denies dysuria, hematuria or urinary frequency Musculoskeletal Musculoskeletal: Denies arthralgias, back pain, myalgias or neck pain Integumentary Denies abscess, Abrasions or rash Neurologic Neurologic: Reports other Details: Disequilibrium ; Denies headache(s) or weakness Psychiatric Psychiatric: Denies anxiety, depression or suicidal thoughts Endocrine Endocrinology: Denies polydipsia, polyphagia or polyuria Hematologic/Lymphatic Hematologic/Lymphatic: Denies easy bleeding, easy bruising or lymphadenopathy Allergic/Immunologic Allergic/Immunologic ED: Denies mouth swelling, tongue swelling or urticaria EXAM Physical Exam Const Vital Signs: 01/18/25 10:07 01/18/25 11:22 01/18/25 11:23 Temperature 97.7 F L Temperature Source Oral Pulse Rate 65 67 Pulse Rate [Lying] 69 Pulse Rate [Sitting (for 1 minute prior to obtaining)] 67 Pulse Rate [Standing (for 1 minute prior to obtaining)] 68 Respiratory Rate 16 16 Blood Pressure 157/75 H 132/75 H Blood Pressure [Lying] 132/75 H Blood Pressure [Sitting (for 1 minute prior to obtaining)] 121/67 H Blood Pressure [Standing (for 1 minute prior to obtaining)] 139/79 H Blood Pressure Mean 102 94 Blood Pressure Mean [Lying] 94 Blood Pressure Mean [Sitting (for 1 minute prior to obtaining)] 85 Blood Pressure Mean [Standing (for 1 minute prior to obtaining)] 99 Pulse Ox 95 97 Oxygen Delivery Method Room Air Room Air 01/18/25 12:01 01/18/25 12:59 Temperature Temperature Source Pulse Rate 66 60 Pulse Rate [Lying] Pulse Rate [Sitting (for 1 minute prior to obtaining)] Pulse Rate [Standing (for 1 minute prior to obtaining)] Respiratory Rate 32 H 17 Blood Pressure 163/91 H 144/82 H Blood Pressure [Lying] Blood Pressure [Sitting (for 1 minute prior to obtaining)] Blood Pressure [Standing (for 1 minute prior to obtaining)] Blood Pressure Mean 115 102 Blood Pressure Mean [Lying] Blood Pressure Mean [Sitting (for 1 minute prior to obtaining)] Blood Pressure Mean [Standing (for 1 minute prior to obtaining)] Pulse Ox 94 96 Oxygen Delivery Method Room Air Room Air Positive well nourished and well developed General Appearance ED: well developed and NAD HEENT Reports TM's clear and moist mucous membranes normocephalic and atraumatic; Negative for trauma or tenderness Tympanic Membrane ED: Yes TM's clear Eyes PERRL and EOMs intact bilaterally General Eye ED: Negative for pale conjunctiva or scleral icterus Neck no lymphadenopathy, supple and no JVD General: Negative for tenderness Chest Wall inspection of chest normal and palpation of chest normal Chest: Negative for tenderness Resp normal respiratory effort and clear to auscultation bilaterally Effort and Inspection: Negative for respiratory distress or pain with movement Auscultation: Negative for rhonchi, wheezes or diminished lung sounds Cardio regular rate, regular rhythm, S1 normal heart sound, S2 normal heart sound and no murmurs Peripheral Pulses: pulses 2+ throughout GI normal to inspection, nondistended, normoactive bowel sounds, soft to palpation, non-tender, non-distended and no masses Back/Spine no CVA tenderness and no thoracic nor lumbar tenderness Extremity normal to inspection General Extremety ED: Negative for edema General Extremity: Negative for edema Neuro oriented x3, CN's II-XII intact bilaterally, no sensory deficits noted and gait normal Neuro Narrative: NIH stroke scale of 0. Finger-nose and heel lieberman testing within normal limits, negative Romberg, negative for drift, fundi benign Sensorium / Orientation: awake, alert, oriented to person, oriented to place and oriented to time Motor Exam: strength 5/5 throughout and strength abnormal Psych mental status grossly normal Skin no rashes or lesions noted and no wounds MDM MDM MDM Narrative Medical decision making narrative: Patient presents with very vague symptoms of disequilibrium. He was able to walk into the department today but just feels off balance. He states he does not feel right. Will obtain a CT scan of the brain as well as CTA head and neck to evaluate further. Will obtain EKG and lab work. Will obtain orthostatic vital signs. Orthostatics were negative. EKG obtained on arrival shows sinus rhythm with rate of 66 bpm with no acute ST segment changes. 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 CT brain was unremarkable. CTA head and neck showed no large vessel occlusions or aneurysms or any acute process. Initial troponin was obtained and was 55 however he is completely asymptomatic from a cardiac standpoint. We obtained a 2-hour delta troponin which was 53. I suspect this is his likely baseline. There were no old levels available for comparison. Patient was ambulated in the department and he states that he thinks he is back to his baseline. He did not feel off balance. We discussed options of admission for possible MRI to evaluate posterior circulation which is not adequately evaluated with CT. Patient would prefer to go home and does not want to be admitted and feels like he is back to his baseline. Etiology of his lightheadedness uncertain patient advised to return if difficulty walking, vomiting, or condition should worsen anyway Lab Data Attestation: I reviewed the patient's lab results. Labs: Laboratory Results - last 24 hr 01/18/25 01/18/25 01/18/25 10:15 10:42 12:22 WBC 11.1 H RBC 4.48 L Hgb 14.2 Hct 42.2 MCV 94.2 H MCH 31.7 MCHC 33.6 RDW Std Deviation 47.8 H RDW Coeff of Antonio 13.7 Plt Count 237 MPV 9.8 Immature Gran % (Auto) 0.600 Neut % (Auto) 70.6 H Lymph % (Auto) 13.6 L Rogers % (Auto) 12.2 H Eos % (Auto) 2.4 Baso % (Auto) 0.6 Absolute Neuts (auto) 7.8 H Absolute Lymphs (auto) 1.51 Nucleated RBC % 0 Sodium 138 Potassium 4.1 Chloride 102 Carbon Dioxide 25.0 Anion Gap 11 BUN 25 H Creatinine 1.27 H Estim Creat Clear Calc 62.27 Est GFR (MDRD) Non-Af 56 L BUN/Creatinine Ratio 19.4 Glucose 165 H Calcium 9.6 Troponin T High Sens 55 H* Troponin T Hi Sens 2 Hr 53 H POC Glucose 127 H Radiography Diagnostic Testing: Clinical Impression(s) from Imaging Studies Brain CT 01/18/25 10:19 IMPRESSION: 1. No intracranial hemorrhage. No mass effect or midline shift. 2. 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 Reading Location: [facility] Head/Neck CTA 01/18/25 10:19 IMPRESSION: No hemodynamically significant stenosis in the head and neck. No aneurysm. Reading Location: [id number] Discharge Plan Triage Chief Complaint: Neuro S/Sx ED Provider: Virgilio Love Dx/Rx/DC Orders Clinical Impression: Dizziness Instructions: ED Dizziness, Uncertain Cause Prescriptions: No Action valsartan 80 mg tablet 80 mg PO QDAY calcium carbonate 500 mg calcium (1,250 mg) tablet 500 mg PO QDAY dapagliflozin propanediol [Farxiga] 10 mg tablet 10 mg PO DAILY magnesium oxide 400 mg magnesium capsule 400 mg PO QDAY glipizide 5 mg tablet extended release 24hr 5 mg PO QDAY atorvastatin 40 MG tablet 40 mg PO QHS aspirin 81 MG tablet 81 mg PO DAILY@0800 coenzyme Q10 [Co Q-10] 50 MG capsule 200 mg PO DAILY metformin 500 MG tablet extended release 24 hr 500 mg PO BID Patient Comments: cholecalciferol (vitamin D3) [Vitamin D3] 25 mcg (1,000 unit) capsule 25 mcg PO BID ascorbic acid (vitamin C) [C-1000] 1,000 mg tablet 1 g PO DAILY zinc glycinate 30 mg capsule 15 mg PO DAILY metoprolol tartrate 25 mg tablet 25 mg PO BID potassium chloride 20 mEq tablet extended release 20 meq PO DAILY PRN (Reason: if needed take with Furosemide) Qty: 30 0RF furosemide 40 mg tablet 40 mg PO DAILY PRN (Reason: if needed for weight gain of 3 pounds or more) Qty: 30 0RF Primary Care Provider: Estrada Ford Referrals: Estrada Ford MD [Primary Care Provider, Family Practice] - 3-5 Days Print Language: Palauan Disposition Disposition: Home, Self Care
[2025-01-18 10:28] LABS: Hematocrit 42.2 % (40-54); Hemoglobin 14.2 g/dL (13.0-16.5); Immature Granulocytes Count 0.070 X10^3/uL (0.0-0.0); Mean Corp Hgb Conc 33.6 g/dL (32-36); Mean Corpuscular Volume 94.2 fL (80-94); Mean Platelet Vol. 9.8 fl (6.2-12.0); NRBC Flagged by Analyzer 0 % (0-5); Platelet Count 237 K/mm3 (150-450); RBC Distribution Width CV 13.7 % (11.6-14.6); RBC Distribution Width SD 47.8 fl (35.1-43.9); Red Blood Count 4.48 M/mm3 (4.6-6.2); White Blood Count 11.1 K/mm3 (4.4-11.0)
--- OUTSIDE RECORDS SUMMARY | 2025-01-18 10:38 | XMS RPT_ITS | CCD ---
Author Organization [facility] Care Team Providers Care Block Sawyer Name Role Phone JoseSkyler pfeiffer Unavailable Unavailable Dr. Kishan Ford Primary Care Provider Dr. Chiki Medrano Attending Provider Dr. Ksihan Ford Referring Provider Dr. Kishan Ford Primary Care Provider [phone] Dr. Curtis Lancaster Emergency Provider [phone] Jerson Don Admit Provider Dr. Jersno Don Attending Provider Dr. Jerson Don Other Provider Dr. Isidro Tirado Other Provider Dr. Mercy Santos Attending Provider Dr. Mercy Santos Other Provider Kishan Ford MD Primary Care Provider Aixa Al RN Unavailable Unavailable Kishan Ford MD Primary Care Provider Aixa Al RN Unavailable Unavailable ERICA KAY Attending Unavailable KISHAN FORD Primary Care Unavailable ERICA KAY Attending Unavailable KISHAN FORD Primary Care Unavailable NONE, PCP Referring Unavailable AZIKEN, RETA Admitting Unavailable AZIKEN, RETA Attending Unavailable KISHAN FORD Primary Care Unavailable ZMEIPAT FONTAINE Consulting Unavailable ERICA KAY Attending Unavailable KISHAN FORD Primary Care Unavailable Dr. Kishan Ford MD Primary Care Provider Liliana CHAPMAN, Dr. Kishan Mercado Referring Provider [phone] Sean CALVILLO-Kishan Maki Attending Provider Liliana CHAPMAN, Dr. Kishan Mercado Attending Provider Marcela CHAPMAN, Dr. Monte Attending Provider Liliana CHAPMAN, Dr. Kishan Mercado Primary Care Provider [phone] Liliana CHAPMAN, Dr. Kishan Mercado Referring Provider Chandrakant CHAPMAN, Dr. Rivero Attending Provider Mat Stallings Attending Unavailable Kishan Ford Primary Care Unavailable Kishan Ford Referring Unavailable Kishan Ford Primary Care Unavailable Kishan Ford Attending Unavailable Liliana, Kishan Mercado Referring Unavailable Mat Stallings Attending Unavailable Mat Stallings Referring Unavailable Kishan Ford Primary Care Unavailable Kishan Ford Primary Care Unavailable Kishan Ford Attending Unavailable Kishan Ford Referring Unavailable Kishan Ford Primary Care Unavailable Kishan Ford Attending Unavailable Kishan Ford Primary Care Unavailable Kishan Ford Attending Unavailable Kishan Ford Referring Unavailable Kishan Ford Referring Unavailable Kishan Ford Attending Unavailable Kishan Ford Primary Care Unavailable Kishan Ford Referring Unavailable Kishan Ford Primary Care Unavailable Kishan Estrada NP Attending Unavailable Kishan Ford Primary Care Unavailable Kishan Ford Referring Unavailable Chiki Medrano Attending Unavailable Kishan Ford Primary Care Unavailable Chiki Medrano Attending Unavailable Kishan Ford Referring Unavailable Medications Current Medications Medication Drug Class(es) Dates Sig (Normalized) Sig (Original) Ascorbic Acid (14 sources) Vitamin C Start: 06-02-2023 take 1 tablet by mouth once daily Ascorbic Acid (Vitamin C) (C-1000) 1,000 mg tablet Active 1 g PO DAILY June 02, 2023 12:00am Start: 06-02-2023 take 1 tablet by mouth once da berry Ascorbic Acid (Vitamin C) (C-1000) 1,000 mg tablet Active 1 GM PO DAILY June 02, 2023 12:00am take 1 tablet by mouth once dakota y ascorbic acid (Vitamin C) 1000 MG tablet Take 1,000 mg by mouth daily. Active calcium carbonate 1250 mg oral tablet (3 sources) Start: 10-24-2023 take 1 tablet by mouth once daily Calcium Carbonate 500 mg calcium (1,250 mg) tablet Active 500 mg PO daily October 24, 2023 12:00am cholecalciferol 0.025 mg oral capsule (14 sources) Vitamin D Start: 06-02-2023 take 1 capsule by mouth once daily Cholecalciferol (Vitamin D3) (Vitamin D3) 25 mcg (1,000 unit) capsule Active 25 ug PO DAILY June 02, 2023 12:00am Cholecalciferol 25 MCG (1000 UT) chewable tablet Chew 25 mcg daily. Active dapagliflozin 10 mg oral tablet (3 sources) Sodium-Glucose Cotransporter 2 Inhibitor Start: 03-13-2024 take 1 tablet by mouth once daily Dapagliflozin Propanediol (Farxiga) 10 mg tablet Active 10 mg PO DAILY March 13, 2024 1:00am furosemide 40 mg oral tablet (20 sources) Loop Diuretic Start: 08-02-2023 End: 08-24-2023 take 3 tablets by mouth once daily as needed Furosemide 40 mg tablet Active 40 mg PO DAILY as needed for if needed for weight gain of 3 pounds or more August 24, 2023 10:32am Start: 06-29-2023 End: 08-02-2023 take 1 tablet by mouth once daily Furosemide (Lasix) 40 mg tablet Discontinued 40 mg PO DAILY July 02, 2023 12:00am August 02, 2023 4:03pm Start on 07/02/2023 Start: 06-13-2023 End: 06-26-2023 take 1 tablet by mouth once daily furosemide (Lasix) 40 MG tablet Take 1 tablet (40 mg) by mouth daily for 5 days. 5 tablet 06/26/2023 Active Start: 06-08-2023 End: 06-13-2023 40 mg, IntraVENous, 2 times daily, First dose (after last modification) on 06/10/23 at 1700 Start: 06-07-2023 20 mg, IntraVE Nous, Once, On Gisella 06/08/23 at 0615, For 1 dose glipiZIDE er 5 mg 24 hr extended release oral tablet (1 source) Sulfonylurea Start: 07-05-2024 take 1 tablet by mouth once daily Glipizide 5 mg tablet extended release 24hr Active 5 mg PO daily July 05, 2024 12:00am magnesium oxide 400 mg oral capsule (3 sources) Start: 03-13-2024 take 1 capsule by mouth once daily Magnesium Oxide 400 mg magnesium capsule Active 400 mg PO daily March 13, 2024 1:00am 24 hr metFORMIN hydrochloride 500 mg extended release oral tablet (20 sources) Biguanide Start: 07-15-2014 take 1 tablet by mouth twice daily Metformin 500 MG tablet extended release 24 hr Active 500 mg PO TWICE A DAY July 15, 2014 12:00am Start: 07-15-2014 take 500 mg by mouth once dakota y Metformin Active 500 MG PO DAILY July 15, 2014 12:00am metFORMIN, OSM, (Fortamet) 500 MG 24 hr tablet Take 500 mg by mouth with evening meal. Do not crush, chew, or split. Patient states he takes twice a day, one before breakfast, and before evening meal. Patient states he takes twice/day. Active metoprolol tartrate 25 mg oral tablet (20 sources) beta-Adrenergic Silvano Start: 06-11-2023 End: 09-11-2023 take 1 tablet by mouth twice daily Metoprolol Tartrate 25 mg tablet Active 25 mg PO TWICE A DAY June 29, 2023 12:00am Start: 06-10-2023 End: 06-11-2023 12.5 mg, Oral, 2 times daily , First dose on Mon06/10/23 at 1115, Hold for SBP less than 105 and/or MAPs less than 65 and/or HR less than 60 Start: 06-02-2023 End: 06-06-2023 12.5 mg, Oral, 2 times daily , First dose on Mon06/02/23 at 2100, Hold for SBP less than 105 and/or MAPs less than 65 and/or HR less than 60, , On hold since Mon06/05/2023 at 0659 until manually unheld potassium chloride 20 meq extended release oral tablet (20 sources) Start: 08-02-2023 End: 08-24-2023 take 1 tablet by mouth once daily as needed Potassium Chloride 20 mEq tablet extended release Active 20 meq PO DAILY as needed for if needed take with Furosemide August 24, 2023 10:32am Start: 07-02-2023 End: 08-02-2023 take 2 tablets by mouth once daily Potassium Chloride 10 mEq tablet extended release Discontinued 20 meq PO DAILY July 02, 2023 12:00am August 02, 2023 4:03pm Start: 06-13-2023 End: 07-02-2023 take 1 tablet by mouth once daily Potassium Chloride 20 mEq tablet,ER particles/crystals Discontinued 20 meq PO DAILY June 29, 2023 12:00am July 02, 2023 9:25am STARTED 06/23/23 Start: 06-07-2023 End: 06-13-2023 20 mEq, Oral, PRN, Hypokalem ia, Starting on Mon06/07/23 at 0000, Recovery & On Unit, If patient is intubated or not tolerating PO use PRN IV replacement protocol Potassium level Dose LESS than 3.0 = Give 20 mEq x 3 doses 3.0-3.6 = Give 20 mEq x 2 doses Recheck potassium level 2 hour after replacement given, place order for lab under [place] If potassium level LESS than 3 after 1st replacement: Call surgeon. Do not crush or break. Do not crush or chew. ubidecarenone 50 mg oral cap prateek (20 sources) Start: 07-15-2014 Coenzyme Q10 ( Co Q-10) 50 MG capsule Active 30 mg PO DAILY July 15, 2014 12:00am co-enzyme Q-10 3 0 MG capsule Take 30 mg by mouth daily. Patient states he takes 200mg daily. Active valsartan 80 mg oral tablet (9 sources) Angiotensin 2 Receptor Silvano Start: 10-24-2023 take 1 tablet by mouth once daily Valsartan 80 mg tablet Active 80 mg PO daily October 24, 2023 12:00am Start: 06-02-2023 End: 06-29-2023 take 1 tablet by mouth once daily Valsartan 80 mg tablet Discontinued 80 mg PO DAILY June 02, 2023 12:00am June 29, 2023 12:25pm On Hold: Resume on 06/12/23. Zinc Citrate, Zinc Oxide 50 mg tablet (3 sources) Start: 03-13-2024 Zinc Citrate, Zinc Oxide 50 mg tablet Active 55 mg PO daily March 13, 2024 1:00am Completed/Discontinued Medications Medication Drug Class(es) Dates Sig (Normalized) Sig (Original) acetaminophen 500 mg oral capsule (10 sources) Start: 06-29-2023 End: 07-05-2024 take 1 capsule by mouth every six hours as needed for pain Acetaminophen 500 mg capsule Discontinued 500 mg PO EVERY 6 HOURS as needed for pain June 29, 2023 12:00am July 05, 2024 10:38am Start: 06-13-2023 End: 07-04-2023 take 2 tablets by mouth three times daily acetaminophen (Tylenol) 500 MG tablet Take 2 tablets (1,000 mg) by mouth 3 times daily for 21 days. 126 tablet 0 06/13/2023 07/04/2023 Start: 06-06-2023 End: 07-04-2023 20 ml albumin human, assisted 250 mg/ml injection (4 sources) Human Serum Albumin Start: 06-07-2023 End: 06-07-2023 50 g, IntraVENous, at 200 mL/hr, Administer over 1 Hours, Once, On Mon06/07/23 at 0730, For 1 dose Start: 06-06-2023 End: 06-07-2023 25 g, IntraVENous, at 60 mL/ hr, As needed, fluid bolus challenge PRN: PAD below goal (18) and/or Low BP (less than 90 SBP and/or less than 60 MAP) and/or Low urine output (less than 30ml/hr) per hemodynamic goals, Starting on Mon06/06/23 at 1216, For 2 doses, Recovery & On Unit, To be given in conjunction with PRN 250ml Lactate Ringer Bolus Use if hgb greater than 7.5 and PAD below goal (18) and/or Low BP (less than 90 SBP and/or less than 60 MAP) and/or Low urine output (less than 30ml/hr) per hemodynamic goals If hemodynamic goals unattained, proceed to second fluid bolus challenge If hgb less than 7.5 notify surgeon for orders. albuterol 0.833 mg/ml / ipratropium bromide 0.167 mg/ml inhalation solution (2 sources) Anticholinergic, beta2-Adrenergic Agonist Start: 06-06-2023 End: 06-13-2023 3 mL, Nebulization, 3 times daily PRN, wheezing, shortness of breath, Starting on Mon06/06/23 at 1216, Recovery & On Unit amLODIPine 5 mg oral tablet (12 sources) Dihydropyridine Calcium Channel Silvano Start: 07-15-2014 End: 06-01-2023 take 1 tablet by mouth at bedtime Amlodipine 5 MG tablet Discontinued 5 mg PO AT BEDTIME July 15, 2014 12:00am June 01, 2023 11:33pm aspirin 81 mg delayed release oral tablet (20 sources) Platelet Aggregation Inhibitor, Nonsteroidal Anti-inflammatory Drug Start: 06-02-2023 End: 06-06-2023 take 81 mg by mouth once daily 81 mg, Oral, Daily, First dose on Mon06/02/23 at 1815 Start: 07-15-2014 End: 06-13-2023 take 1 tablet by mouth once daily Aspirin 81 MG tablet Active 81 mg PO DAILY@0800 July 15, 2014 12:00am atorvastatin 80 mg oral tablet (20 sources) HMG-CoA Reductase Inhibitor Start: 06-02-2023 End: 06-13-2023 take 80 mg by mouth once daily 80 mg, Oral, Daily, First dose (after last modification) on Mon06/07/23 at 0900 Start: 07-15-2014 take 1 tablet by sarah th at bedtime Atorvastatin 40 MG tablet Active 40 mg PO AT BEDTIME July 15, 2014 12:00am calcium chloride 0.0014 meq/ml / potassium chloride 0.004 meq/ml / sodium chloride 0.103 meq/ml / sodium lactate 0.028 meq/ml injectable solution (4 sources) Start: 06-06-2023 End: 06-07-2023 500 mL, IntraVENous, at 500 mL/hr, Administer over 1 Hours, Once, On Mon06/07/23 at 0915, For 1 dose, Recovery & On Unit 100 ml calcium gluconate 20 mg/ml injection (2 sources) Start: 06-06-2023 End: 06-13-2023 2,000 mg, IntraVENous, at 50 mL/hr, Administer over 2 Hours, PRN, ionized calcium less than 4.3, Starting on Mon06/06/23 at 1216, Recovery & On Unit, Give 2000 mg for ionized calcium less than 4.3 premix bag ceFAZolin 2000 mg injection (4 sources) Cephalosporin Antibacterial Start: 06-06-2023 End: 06-08-2023 take 2000 mg intravenously every eight hours 2,000 mg, IntraVENous, Administer over 30 Minutes, Every 8 hours, First dose on Mon06/06/23 at 1900, For 5 doses, Recovery & On Unit, premix bag, Suspected Indication (Select all that apply): Surgical Prophylaxis Start: 06-05-2023 End: 06-05-2023 2,000 mg, IntraVENous, Admin ister over 30 Minutes, Event Marketing Intern to O.R., On Mon06/05/23 at 1345, For 1 dose, Preprocedure, Administer within 1 hour prior to incision. Repeat in 2 hours after initial dose if still intra-op. premix bag, Suspected Indication (Select all that apply): Surgical Prophylaxis, Indications: Default Settings:Auto-dosed by Weight Event Marketing Intern to O.R x 1 dose Auto-dosed: Pt Wt 120kg-3gm cefdinir 300 mg oral capsule (3 sources) Cephalosporin Antibacterial Start: 07-02-2023 End: 07-26-2023 take 1 capsule by mouth twice daily Cefdinir 300 mg capsule Discontinued 300 mg PO TWICE A DAY July 02, 2023 12:00am July 26, 2023 2:58pm Start on 07/03/2023 chlorhexidine gluconate 1.2 mg/ml mouthwash (10 sources) Start: 06-05-2023 End: 06-05-2023 apply 1 dose topically once in the evening Topical, Once, On Mon06/05/23 at 2000, For 1 dose, Preprocedure, Night prior to surgery use hibiclens & wipes, bathe in evening at 1999 Start: 06-05-2023 End: 06-13-2023 take 15 mL by mouth twice daily 15 mL, Mouth/Throat, 2 times daily, First dose on Mon06/06/23 at 1230, For 7 days, Recovery & On Unit, Rinse and spit. Do not swallow. Start: 06-02-2023 End: 06-02-2023 take 1 mL by mouth three times daily Chlorhexidine Gluconate 0.12 % mouthwash Discontinued 15 mL PO THREE TIMES A DAY June 02, 2023 12:00am June 02, 2023 1:52pm cholecalciferol 9.52 unt/ml / glucose 357 mg/ml oral gel (2 sources) Vitamin D Start: 06-06-2023 End: 06-13-2023 15 g, Oral, As needed, low blood sugar, Starting on Mon06/06/23 at 1216, Recovery & On Unit, If blood glucose less than 50 mg/dL and patient ALERT and NOT NPO, give 2 tubes glucose gel. If blood glucose less than 70 mg/dL and patient ALERT and NOT NPO, give 1 tube glucose gel. Repeat blood glucose in 15 minutes. If blood glucose is less than 70 mg/dL, repeat treatment and recheck blood glucose in 15 minutes x2 and notify provider. 100 ml dexmedetomidine 0.004 mg/ml injection (2 sources) Central alpha-2 Adrenergic Agonist Start: 06-06-2023 End: 06-07-2023 0.1-1.5 mcg/kg/hr 120 kg (3-45 mL/hr), IntraVENous, Continuous, Starting on Mon06/06/23 at 1415, If Titrate Infusion? is No: Disregard instructions below. If Titrate infusion? is Yes: Titrate in increments of 0.2 mcg/kg/hr no more frequently than every 30 minutes to goal of therapy. If after titration rate change patient exhibits adverse hemodynamic response, next titration rate change may be adjusted by one-half of the previous rate change. If patient fails sedation interruption, resume dexmedetomidine infusion at 50% of previous rate., Titrate Infusion? Yes, Initial Infusion Dose: 0.4 mcg/kg/hr, Goal of Therapy: RASS -1 to +1, Contact Provider if: New onset HR less than 50 bpm, New onset SBP less than 90 mmHg, Patient is receiving maximum dose and is not achieving the goal of therapy docusate sodium 50 mg / sennosides, assisted 8.6 mg oral tablet (2 sources) Start: 06-06-2023 End: 06-13-2023 take 2 tablets by mouth once daily for constipation 2 tablet, Oral, Nightly, First dose on Mon06/06/23 at 2100, Recovery & On Unit, Bowel Regimen - for prevention of constipation. EPINEPHrine 5mg in 0.9% sodium chloride 250 mL infusion (weight-based) (2 sources) Start: 06-06-2023 End: 06-07-2023 0.01-0.2 mcg/kg/min 120 kg (3.6-72 mL/hr), IntraVENous, Continuous PRN, Initiate if Cardiac Index below 2.0; SBP less than 90 mmHg; and PAD above 18, Starting on Mon06/06/23 at 1216, Recovery & On Unit, Titrate by 0.01 mcg/kg/min no faster than every 5 minutes to goal May titrate outside of defined titration parameters (increments and frequency) under the direction of the provider. If cardiac index above hemodynamic goal, SBP above hemodynamic goal, and PAD above hemodynamic goal, wean drip, re-evaluate, once hemodynamic parameters are back within range; resume drip using previous ordered parameters. For unstable, emergent situation, may titrate accordingly to meet hemodynamic goal. Goal MAP greater than 65 less than 80 Goal SBP greater than 90 less than 130, Titrate Infusion? Yes, Initial Infusion Dose: Other, Other (mcg/min): 0.01 mcg/kg/min, Goal of Therapy is: Other, MAP greater than 65 mmHg, Other Goal: Refer to Hemodynamic Goals nursing order, Contact Provider if: Patient is receiving the maximum dose and is not achieving the goal of therapy ferrous sulfate 325 mg oral tablet (3 sources) Start: 03-13-2024 End: 07-05-2024 take 1 tablet by mouth once daily Ferrous Sulfate 325 mg (65 mg iron) tablet Discontinued 325 mg PO daily March 13, 2024 1:00am July 05, 2024 10:37am glucagon (rdna) 1 mg injection (2 sources) Antihypoglycemic Agent Start: 06-06-2023 End: 06-13-2023 1 mg, IntraMUSCular, PRN, low blood sugar, Blood glucose less than 70 mg/dL and patient NOT ALERT or NPO and does not have IV access., Starting on Mon06/06/23 at 1216, Recovery & On Unit, After administration, attempt intravenous access and start D5W at 100 mL/hr. Repeat blood glucose in 15 minutes x2 and notify provider. 150 ml glucose 50 mg/ml injection (4 sources) Start: 06-06-2023 End: 06-13-2023 12.5 g, IntraVENous, PRN, low blood sugar, Blood glucose less than 70 mg/dL and patient NOT ALERT or NPO., Starting on Mon06/06/23 at 1216, Recovery & On Unit, If patient does not respond within 5 minutes, repeat dose x1. Start D5W at 100 mL/hour until ordering provider can be reached. Repeat blood glucose in 15 minutes. If blood glucose is less than 70 mg/dL, repeat treatment and recheck blood glucose in 15 minutes x2. If using Glucostabilizer, dose as instructed per system. Start: 06-06-2023 End: 06-13-2023 100 mL/hr, IntraVENous, PRN, Blood sugar less than 70mg/dL, Starting on Mon06/06/23 at 1216, Recovery & On Unit, Start infusion following administration of dextrose 50% or glucagon. 0.5 ml heparin sodium, porcine 30820 unt/ml prefilled syringe (8 sources) Unfractionated Heparin, Anti-coagulant Start: 06-07-2023 End: 06-13-2023 inject 5000 [IU] by subcutaneous injection twice daily 5,000 Units, SubCUTAneous, 2 times daily, First dose on Mon06/07/23 at 0900 Start: 06-02-2023 End: 06-02-2023 4,000 Units, IntraVENous, On ce, On Mon06/02/23 at 1745, For 1 dose, Initial one time bolus Start: 06-02-2023 End: 06-06-2023 5-30 Units/kg/hr 125 kg (6. 25-37.5 mL/hr, rounded to 6.3-37.5 mL/hr), IntraVENous, Continuous, Starting on Mon06/02/23 at 1745, LOW Dose Heparin Weight Based Dosing (CAD/STEMI/NSTEMI/AFIB/ECMO) >>>>Initial dose: 8 units/kg/hr 95.9 Hold heparin for 60 min Decrease infusion by 2 units/kg/hr - notify prescriber; Check aPTT: 6 hours after initiation and 6 hours after every dose change - every 12 hrs x 1 day after 2 consecutive therapeutic aPTT - daily after every 12 hrs x 1 day is complete., , On hold since Mon06/05/2023 at 2057 until manually unheld Start: 06-02-2023 End: 06-06-2023 2,000 Units, IntraVENous, As needed, heparin dosing algorithm, Starting on Mon06/02/23 at 1743, Half dose re-bolus based on pharmacy algorithm insulin glargine 100 unt/ml injectable solution (2 sources) Insulin Analog Start: 06-07-2023 End: 06-07-2023 inject 24 [IU] by subcutaneous injection once 24 Units, SubCUTAneous, Once, On Mon06/07/23 at 1645, For 1 dose, Stop insulin gtt 1 hour after lantus has been given insulin lispro 100 unt/ml injectable solution (2 sources) Insulin Analog Start: 06-09-2023 End: 06-13-2023 0-6 Units, SubCUTAneous, 3 times daily with meals, First dose on Mon06/09/23 at 0800, Low dose Sliding scale: 400 = 6 units and call endocrine 100 ml insulin, regular, human 1 unt/ml injection (2 sources) Insulin Start: 06-06-2023 End: 06-07-2023 1-50 Units/hr (1-50 mL/hr), IntraVENous, Continuous, Starting on Mon06/06/23 at 1230, Recovery & On Unit, As guided by calculator flowsheet Low target: 120 High target: 160 Hold insulin infusion if BS< 100 mg/dl, if BS < 70 mg/dl follow hypoglycemia treatment orders, continue to check BS as ordered, and restart insulin infusion if and when BS increases back into goal range. BUD: 30 days at room temperature irbesartan 300 mg oral tablet (12 sources) Angiotensin 2 Receptor Silvano Start: 07-15-2014 End: 06-01-2023 take 1 tablet by mouth at bedtime Irbesartan (Avapro) 300 MG tablet Discontinued 300 mg PO AT BEDTIME July 15, 2014 12:00am June 01, 2023 11:33pm 1 ml ketorolac tromethamine 15 mg/ml cartridge (4 sources) Nonsteroidal Anti-inflammatory Drug, Cyclooxygenase Inhibitor Start: 06-08-2023 End: 06-08-2023 take 15 mg intravenously every six hours 15 mg, IntraVENous, Every 6 hours, First dose on Mon06/08/23 at 0615, For 1 day Start: 06-06-2023 End: 06-06-2023 15 mg, IntraVENous, Once, On Mon06/06/23 at 1415, For 1 dose Start: 06-06-2023 End: 06-06-2023 15 mg, IntraVENous, Once, On Mon06/06/23 at 1415, For 1 dose lidocaine 0.04 mg/mg medicated patch (2 sources) Antiarrhythmic, Amide Local Anesthetic Start: 06-06-2023 End: 06-13-2023 1 patch, Topical, Administer over 12 Hours, Daily, First dose on Mon06/06/23 at 1230, Recovery & On Unit, Cut in half and place on both sides of the incision. Patch may remain in place for up to 12 hours in any 24 hour period. magnesium hydroxide 80 mg/ml oral suspension (2 sources) Start: 06-06-2023 End: 06-13-2023 take 30 mL by mouth every twenty-four hours as needed for constipation 30 mL, Oral, Daily PRN, constipation, Starting on Mon06/06/23 at 1216, Recovery & On Unit, 1st line for treatment of constipation - give scheduled if no bowel movement in past 24 hours mupirocin 0.02 mg/mg topical ointment (4 sources) RNA Synthetase Inhibitor Antibacterial Start: 06-05-2023 End: 06-10-2023 Nasal, 2 times daily, First dose on Mon06/06/23 at 1230, For 4 days, Recovery & On Unit 1 ml naloxone hydrochloride 0.4 mg/ml injection (2 sources) Opioid Antagonist Start: 06-08-2023 End: 06-13-2023 0.4 mg, IntraVENous, Every 5 min PRN, opioid reversal, respiratory depression, Starting on Gisella 06/08/23 at 0747, +++ For RR <10, pinpoint pupils, over sedation for opioid reversal - MUST notify global vp creative + content marketing provider immediately after first dose, may give IM or SQ if no IV access +++ niacinamide 500 mg oral tablet (20 sources) Start: 07-15-2014 End: 03-13-2024 take 1 tablet by mouth once daily in the evening Niacinamide 500 MG tablet Discontinued 500 mg PO EVERY EVENING July 15, 2014 12:00am March 13, 2024 12:03pm Start: 07-15-2014 take 500 mg by mouth three times daily Niacinamide Active 500 MG PO THREE TIMES A DAY July 15, 2014 12:00am oxyCODONE hydrochloride 5 mg oral tablet (3 sources) Opioid Agonist Start: 06-13-2023 End: 06-20-2023 take 1 tablet by mouth every six hours as needed for pain oxyCODONE (Roxicodone) 5 MG immediate release tablet Indications: S/P CABG (coronary artery bypass graft) Take 1 tablet (5 mg) by mouth every 6 hours as needed for severe pain (7-10) for up to 7 days. 28 tablet 0 06/13/2023 06/20/2023 pantoprazole 40 mg delayed release oral tablet (4 sources) Proton Pump Inhibitor Start: 06-08-2023 End: 06-13-2023 take 40 mg by mouth once daily before breakfast 40 mg, Oral, Daily before breakfast, First dose on Mon06/08/23 at 0600, Do not crush, chew, or split. Start: 06-07-2023 End: 06-07-2023 40 mg, IntraVENous, Administ er over 2 Minutes, Daily, First dose on Mon06/07/23 at 0600, Recovery & On Unit, Reconstitute with 10 mL 0.9 % sodium chloride and administer over at least 2 minutes. polyethylene glycol 3350 44067 mg powder for oral solution (2 sources) Osmotic Laxative Start: 06-06-2023 End: 06-13-2023 17 g, Oral, Daily, First dose on Mon06/06/23 at 1230, Recovery & On Unit, Bowel Regimen - for prevention of constipation. raNITIdine 150 mg oral tablet (12 sources) Histamine-2 Receptor Antagonist Start: 07-15-2014 End: 06-01-2023 take 1 tablet by mouth once daily Ranitidine (Zantac) 150 MG tablet Discontinued 150 mg PO DAILY July 15, 2014 12:00am June 01, 2023 11:34pm 5 ml sodium chloride 9 mg/ml injection (8 sources) Start: 06-06-2023 End: 06-13-2023 10 mL, IntraVENous, Every 12 hours scheduled (2 times per day), First dose on Mon06/06/23 at 2100, [facility] Start: 06-06-2023 End: 06-08-2023 take 20 mL intravenously every hour 20 mL/hr, IntraVENous, Continuous, Starting on Mon06/06/23 at 1230, [facility], 20 ml/hr to SP(introducer) and WT on Surprise Juancarlos Catheter; once Surprise discontinued run at 20 ml/hr through SP(introducer) Start: 06-06-2023 End: 06-10-2023 take 5-40 mL intraluminal route every eight hours 5-40 mL, IntraCATHeter, Every 8 hours, First dose on Mon06/06/23 at 1230, [facility] On Unit, For Line Patency: Peripheral IV = 5 mL; Midline or Central Line = 10 mL/lumen. If following IV push medication, administer flush at same rate as the IV push. Flush volume is determined by type of infusion therapy being given. For non-viscous solutions use: Peripheral IV = 5 mL Midline or Central Line = 10 mL/lumen For viscous solutions (i.e. blood components, parenteral nutrition, contrast media, or after obtaining blood sample) use: Peripheral IV = 10 mL Midline or Central Line = 20 mL/lumen Start: 06-06-2023 End: 06-13-2023 take 10 mL intravenously once as needed 10 mL, IntraVENous, PRN, line care, Starting on Mon06/06/23 at 1216, [facility], After every IV line use 5 ml sugammadex 100 mg/ml injection (4 sources) Start: 06-06-2023 End: 06-06-2023 480 mg (4 mg/kg 120 kg), IntraVENous, Once, On Mon06/06/23 at 1230, For 1 dose, [facility] Start: 06-06-2023 End: 06-06-2023 480 mg (4 mg/kg 120 kg), Int raVENous, Once, On Mon06/06/23 at 1230, For 1 dose, [facility] Start: 06-06-2023 End: 06-06-2023 Starting on Mon06/06/23 at 1 217, For 1 dose, Erica Harvey: arianna overrphil sulfamethoxazole 800 mg / trimethoprim 160 mg oral tablet (3 sources) Dihydrofolate Reductase Inhibitor Antibacterial, Sulfonamide Antimicrobial Start: 06-29-2023 End: 07-02-2023 Sulfamethoxazole-Trimethopri m 800-160 mg tablet Discontinued 2 {tbl} PO TWICE A DAY June 29, 2023 12:00am July 02, 2023 9:25am START 06/23/23- END 06/30/23 (10 sources) Start: 06-06-2023 End: 06-13-2023 [Order 1 Start] Name: magnprasanth ium sulfate IVPB premix 2,000 mg Signed Summary: 2,000 mg, IntraVENous, at 25 mL/hr, Administer over 2 Hours, As needed, Per Magnesium Replacement Protocol, Starting on Mon06/06/23 at 1216, Recovery [facility] On Unit, Mg Lab Replacement Action 1.4-1.6 2 gram IVPB x 1 doses 1.0-1.3 4 gram IVPB x 1 doses Less than 1.0 CALL PHYSICIAN and 4 gram IVPB x 1 doses Infuse at 1 gram/hr. Repeat Mag level next AM. Not for use in Patients with CrCl less than 30 mL/min. [Order 1 End] [Order 2 Start] Name: magnesium sulfate IVPB 4,000 mg Signed Summary: 4,000 mg, IntraVENous, at 25 mL/hr, Administer over 4 Hours, As needed, Per Magnesium Replacement Protocol, Starting on Mon06/06/23 at 1216, [facility] On Unit, Mg Lab Replacement Action 1.4-1.6 2 gram IVPB x 1 doses 1.0-1.3 4 gram IVPB x 1 doses Less than 1.0 CALL PHYSICIAN and 4 gram IVPB x 1 doses Infuse at 1 gram/hr. Repeat Mag level next AM. Not for use in Patients with CrCl less than 30 mL/min. [Order 2 End] Start: 06-06-2023 End: 06-13-2023 [Order 1 Start] Name: reno ium chloride IVPB 20 mEq Signed Summary: 20 mEq, IntraVENous, at 50 mL/hr, Administer over 1 Hours, PRN, hypokalemia, Starting on Mon06/06/23 at 1216, [facility] Unit, For Central Line Use Only K Lab Replacement Action 3.1-3.5 20 mEq IVPB x 2 doses 2.7-3.0 20 mEq IVPB x 2 doses (40 mEq Total) less than 2.7 CALL PROVIDER and administer 20 mEq IVPB x 2 doses (40 mEq Total) Infuse at 20 mEq/hr Repeat Potassium lab 1 hour after final administration. Protocol not for use in Patients with CrCl less than 30mL/min For central line administration only. [Order 1 End] [Order 2 Start] Name: Potassium Chloride in NaCl IVPB 20 mEq Signed Summary: 20 mEq, IntraVENous, Administer over 2 Hours, PRN, hypokalemia, Starting on Mon06/06/23 at 1216, [facility], For Peripheral Line Use K Lab Replacement Action 3.1-3.5 20 mEq IVPB x 1 doses 2.7-3.0 40 mEq IVPB x 1 doses less than 2.7 CALL PROVIDER and administer 40 mEq IVPB x 1 dose Infuse at 10 mEq/hr Repeat Potassium lab 1 hour after administration. Protocol not for use in Patients with CrCl less than 30mL/min [Order 2 End] [Order 3 Start] Name: potassium chloride 40 mEq in NS 500 mL IVPB (premix) Signed Summary: 40 mEq, IntraVENous, at 125 mL/hr, Administer over 4 Hours, PRN, hypokalemia, Starting on Mon06/06/23 at 1216, [facility], For Peripheral Line Use. K Lab Replacement Action 3.1-3.5 20 mEq IVPB x 1 doses 2.7-3.0 40 mEq IVPB x 1 doses less than 2.7 CALL PROVIDER and administer 40 mEq IVPB x 1 dose Infuse at 10 mEq/hr Repeat Potassium lab 1 hour after administration. Protocol not for use in Patients with CrCl less than 30mL/min [Order 3 End] Start: 06-06-2023 End: 06-13-2023 take 5 mg by mouth every four hours as needed for pain [Order 1 Start] Name: oxyCODONE (Roxicodone) immediate release tablet 5 mg Signed Summary: 5 mg, Oral, Every 4 hours PRN, moderate pain (4-6), Starting on Mon06/06/23 at 1216, [facility] Unit [Order 1 End] [Order 2 Start] Name: oxyCODONE (Roxicodone) immediate release tablet 10 mg Signed Summary: 10 mg, Oral, Every 4 hours PRN, severe pain (7-10), Starting on Mon06/06/23 at 1216, [facility] Unit [Order 2 End] Start: 06-06-2023 End: 06-13-2023 take 4 mg by mouth every eight hours as needed for nausea and vomiting [Order 1 Start] Name: ondansetron ODT (Zofran-ODT) disintegrating tablet 4 mg Signed Summary: 4 mg, Oral, Every 8 hours PRN, nausea, vomiting, Starting on Mon06/06/23 at 1216, Recovery [facility] On Unit, 1st Line. If inadequate response within 60 minutes, proceed to next-line agent or contact provider if no further options ordered. Patient should allow tablet to dissolve on tongue. Do not remove from blister pack until just before administering. [Order 1 End] [Order 2 Start] Name: ondansetron (Zofran) injection 4 mg Signed Summary: 4 mg, IntraVENous, Every 6 hours PRN, nausea, vomiting, Starting on Mon06/06/23 at 1216, Recovery [facility] On Unit, 1st Line. Give IV if patient is unable to take orally. If inadequate response within 60 minutes, proceed to next-line agent or contact provider if no further options ordered. [Order 2 End] Start: 06-03-2023 End: 06-06-2023 take 10 mL by mouth once daily 40 mg, IntraVENous, Adm inister over 2 Minutes, Every morning, First dose on Mon06/03/23 at 0900, Give if unable to take by mouth or feeding tube. Reconstitute 40 mg vial with 10 ml NS. Vial expires 2 hrs after reconstitution. Problems Active Problems Problem Classification Problem Date Documented Da te Episodic/Chronic Acute myocardial infarction (7 sources) Myocardial infarction; Translations: [Non-ST elevation (NSTEMI) myocardial infarction] 06-01-2023 Chronic Coronary atherosclerosis and other heart disease (20 sources) Coronary arteriosclerosis; Translations: [Atherosclerotic heart disease of [place] coronary artery without angina pectoris] Onset: 06-02-2023 06-13-2023 Chronic Coronary atherosclerosis and other heart disease (2 sources) Presence of aortocoronary bypass graft; Translations: [Presence of aortocoronary bypass graft] Onset: 07-06-2023 Episodic Diabetes mellitus with complications (8 sources) Hyperglycemia due to type 2 diabetes mellitus; Translations: [Type 2 diabetes mellitus with hyperglycemia] Onset: 12-10-2024 06-01-2023 Chronic Diabetes mellitus without complication (5 sources) Type 2 diabetes mellitus; Translations: [Type 2 diabetes mellitus without complications] 03-13-2024 Chronic Disorders of lipid metabolism (6 sources) Hyperlipidemia; Translations: [Hyperlipidemia, unspecified] 07-26-2023 Chronic Essential hypertension (11 sources) Hypertensive disorder; Translations: [Essential (primary) hypertension] Onset: 07-06-2023 06-26-2023 Chronic Heart valve disorders (2 sources) Aortic valve stenosis; Translations: [Nonrheumatic aortic (valve) stenosis] 07-05-2024 Chronic Malignant neoplasm without specification of site (3 sources) Malignant neoplastic disease; Translations: [Malignant (primary) neoplasm, unspecified] 07-17-2023 Chronic Occlusion or stenosis of precerebral arteries (1 source) Occlusion and stenosis of bilateral carotid arteries; Translations: [Occlusion and stenosis of bilateral carotid arteries] Onset: 12-10-2024 Chronic Other circulatory disease (5 sources) H/O: hypertension; Translations: [Personal history of other diseases of the circulatory system] 06-01-2023 Episodic Other circulatory disease (2 sources) Personal history of other diseases of the circulatory system; Translations: [Personal history of other diseases of circulatory system] 06-02-2023 Episodic Other lower respiratory disease (3 sources) Solitary nodule of lung; Translations: [Solitary pulmonary nodule] Onset: 06-02-2023 06-13-2023 Episodic Other lower respiratory disease (1 source) Solitary pulmonary nodule; Translations: [Solitary pulmonary nodule] Onset: 06-02-2023 Episodic Other nutritional; endocrine; and metabolic disorders (5 sources) History of hypercholesterolemia ; Translations: [Personal history of other endocrine, nutritional and metabolic disease] 06-01-2023 Episodic Other nutritional; endocrine; and metabolic disorders (2 sources) Personal history of other endocrine, nutritional and metabolic disease; Translations: [Personal history of other endocrine, metabolic, and immunity disorders] 06-02-2023 Episodic Residual codes; unclassified (2 sources) Edema of left lower limb; Translations: [Localized edema] 07-05-2024 Episodic Skin and subcutaneous tissue infections (8 sources) Wound cellulitis; Translations: [Cellulitis, unspecified] Onset: 07-24-2023 07-24-2023 Episodic Unclassified (1 source) Unknown / UNK(Unknown) Onset: 12-21-2016 Past or Other Problems Problem Classification Problem Date Documented Da te Episodic/Chronic Deficiency and other anemia (1 source) Anemia, unspecified; Translations: [Anemia, unspecified] Onset: 07-19-2024 Episodic Other connective tissue disease (1 source) Other specified soft tissue disorders; Translations: [Other specified soft tissue disorders] Onset: 06-20-2024 Episodic Unclassified (1 source) E78.00,E11.9 Onset: 12-21-2016 Results Test Name Value Interpretation Reference Range Facility Carotid Duplex Ultrasound 12-02-2024 Carotid Duplex Ultrasound [facility] [address] [place] [address] Carotid Duplex Ultrasound 12/02/24 1102 MR#: [id number] Acct: [id number] Name: CHAU BARRON Rep #: [id number] : 1940 84 From: Chiki Medrano MD Attending Dr: Dr. Kishan Ford MD Status: R EG CLI Ordering Dr: Kishan Ford MD Date: 12/02/24 Location: [facility] Sex: M C Admitted: Reason For Study Reason For Study: Carotid Stenosis Rt. Velocities/BP Lt. Velocities/BP Prox CCA 94/23 cm/sec. Prox CCA 109/22 cm/sec. Mid CCA 80/16 cm/sec. Mid CCA 107/26 cm/sec. Dist CCA 140/23 cm/sec. Dist CCA 78/17 cm/sec. Prox ICA 75/17 cm/sec. Prox ICA 78/17 cm/sec. Mid ICA 91/22 cm/sec. Mid ICA 77/18 cm/sec. Dist ICA 82/27 cm/sec. Dist ICA 83/26 cm/sec. Rt. ICA/CCA = 1.1. Lt. ICA/CCA = 0.8. Prox ECA 89/10 cm/sec. Prox ECA 129/12 cm/sec. Rt. Vert. 40/10 cm/sec. Lt. Vert. 31/10 cm/sec. Right Extracranial There is heterogeneous, irregular atherosclerotic plaque noted in the right common carotid artery. There is heterogeneous, irregular atherosclerotic plaque noted in the right internal carotid artery. The atherosclerotic plaque causes acoustic shadowing. There is intimal thickening but no significant atherosclerotic plaque noted in the right external carotid artery. Antegrade flow is noted in the right vertebral artery. Left Extracranial There is heterogeneous, irregular atherosclerotic plaque noted in the left common carotid artery. There is heterogeneous, irregular atherosclerotic plaque noted in the left internal carotid artery. There is intimal thickening but no significant atherosclerotic plaque noted in the left external carotid artery. Antegrade flow is noted in the left vertebral artery. Procedure Carotid Duplex 06318. This is a Carotid Duplex examination using B-mode, color flow and specral Doppler. Exam performed in department. VL/Carotid Duplex Ultrasound Interpretation Summary Mild (<50%) stenosis right extracranial internal carotid. Mild (<50%) stenosis left extracranial internal carotid. Patent and antegrade vertebrals bilaterally. Ordering Physician: Kishan Ford Referring Physician: Kishan Ford Performed By: Radha Estrada, LUCIA, RVT 12/02/241706 Date Chiki Medrano MD CC: Dr. Kishan Ford MD Date Dictated: 12/02/241101 Date Transcribed: 12/02/241706 [employer] Riveter: Signed Normal [facility] CBC W/Diff, Automatedon 10-0 Absolute Lymph 1.55 X10 3/uL Normal 0.83-4.51 [facility] Comment on above: Order Comment: Order Date: 07/17/24Order Info: [id number] - CBCD Performed By: #### L 500.4050, L100.0100, L501.9985, L500.4100 ####[facility] [address] [place], [address] Absolute Neut 6.7 X10 3/uL Normal 2.0-7.7 [facility] Comment on above: Order Comment: Order Date: 07/17/24Order Info: [id number] - CBCD Performed By: #### L 500.4050, L100.0100, L501.9985, L500.4100 ####[facility] [address] [place], [address] Basophils/100 WBC (Bld) 0.6 % Normal 0-1 [facility] Comment on above: Order Comment: Order Date: 07/17/24Order Info: [id number] - CBCD Performed By: #### L 500.4050, L100.0100, L501.9985, L500.4100 ####[facility] [address] [place], [address] Eosinophils/100 WBC (Bld) 4.0 % Normal 0-5 [facility] Comment on above: Order Comment: Order Date: 07/17/24Order Info: [id number] - CBCD Performed By: #### L 500.4050, L100.0100, L501.9985, L500.4100 ####[facility] [address] [place], [address] Erythrocyte distribution width (RBC) [Ratio] 14.0 % Normal 11.6-14.6 [facility] Comment on above: Order Comment: Order Date: 07/17/24Order Info: [id number] - CBCD Performed By: #### L 500.4050, L100.0100, L501.9985, L500.4100 ####[facility] [address] [place], [address] Hematocrit (Bld) [Volume fraction] 39.6 % Low 40-54 [facility] Comment on above: Order Comment: Order Date: 07/17/24Order Info: [id number] - CBCD Performed By: #### L 500.4050, L100.0100, L501.9985, L500.4100 ####[facility] [address] [place], [address] Hemoglobin (Bld) [Mass/Vol] 13.6 g/dL Normal 13.0-16.5 [facility] Comment on above: Order Comment: Order Date: 07/17/24Order Info: [id number] - CBCD Performed By: #### L 500.4050, L100.0100, L501.9985, L500.4100 ####[facility] [address] [place], [address] IG% 0.600 Normal 0.0-0.9 [facility] Comment on above: Order Comment: Order Date: 07/17/24Order Info: [id number] - CBCD Result Comment: IG% - Immature Granulocytes (promyelocytes, myelocytes and metamyelocytes) > 1% indicates that a LEFT SHIFT is Present. Performed By: #### L 500.4050, L100.0100, L501.9985, L500.4100 ####[facility] [address] [place], [address] Lymphocytes/100 WBC (Bld) 15.8 % Low 19-41 [facility] Comment on above: Order Comment: Order Date: 07/17/24Order Info: [id number] - CBCD Performed By: #### L 500.4050, L100.0100, L501.9985, L500.4100 ####[facility] [address] [place], [address] MCH (RBC) [Entitic mass] 31.9 pg Normal 27.0-32.0 [facility] Comment on above: Order Comment: Order Date: 07/17/24Order Info: [id number] - CBCD Performed By: #### L 500.4050, L100.0100, L501.9985, L500.4100 ####[facility] [address] [place], [address] MCHC (RBC) [Mass/Vol] 34.3 g/dL Normal 32-36 [facility] Comment on above: Order Comment: Order Date: 07/17/24Order Info: [id number] - CBCD Performed By: #### L 500.4050, L100.0100, L501.9985, L500.4100 ####[facility] [address] [place], [address] MCV (RBC) [Entitic vol] 92.7 fL Normal 80-94 [facility] Comment on above: Order Comment: Order Date: 07/17/24Order Info: [id number] - CBCD Performed By: #### L 500.4050, L100.0100, L501.9985, L500.4100 ####[facility] [address] [place], [address] Monocytes/100 WBC (Bld) 10.7 % High 0-10 [facility] Comment on above: Order Comment: Order Date: 07/17/24Order Info: [id number] - CBCD Performed By: #### L 500.4050, L100.0100, L501.9985, L500.4100 ####[facility] [address] [place], [address] Neutrophils/100 WBC (Bld) 68.3 % Normal 47-70 [facility] Comment on above: Order Comment: Order Date: 07/17/24Order Info: [id number] - CBCD Performed By: #### L 500.4050, L100.0100, L501.9985, L500.4100 ####[facility] [address] [place], [address] Nucleated RBC (Bld) [#/Vol] 0 10*3/uL Normal 0-5 [facility] Comment on above: Order Comment: Order Date: 07/17/24Order Info: [id number] - CBCD Performed By: #### L 500.4050, L100.0100, L501.9985, L500.4100 ####[facility] [address] [place], [address] Platelet mean volume (Bld) [Entitic vol] 9.9 fL Normal 6.2-12.0 [facility] Comment on above: Order Comment: Order Date: 07/17/24Order Info: [id number] - CBCD Performed By: #### L 500.4050, L100.0100, L501.9985, L500.4100 ####[facility] [address] [place], [address] Platelets (Bld) [#/Vol] 227 10*3/uL Normal 150-450 [facility] Comment on above: Order Comment: Order Date: 07/17/24Order Info: [id number] - CBCD Performed By: #### L 500.4050, L100.0100, L501.9985, L500.4100 ####[facility] [address] [place], [address] RBC (Bld) [#/Vol] 4.27 10*6/uL Low 4.6-6.2 [facility] Comment on above: Order Comment: Order Date: 07/17/24Order Info: [id number] - CBCD Performed By: #### L 500.4050, L100.0100, L501.9985, L500.4100 ####[facility] [address] [place], [address] RDW SD 47.3 fl High 35.1-43.9 [facility] Comment on above: Order Comment: Order Date: 07/17/24Order Info: [id number] - CBCD Performed By: #### L 500.4050, L100.0100, L501.9985, L500.4100 ####[facility] [address] [place], [address] WBC (Bld) [#/Vol] 9.8 10*3/uL Normal 4.4-11.0 [facility] Comment on above: Order Comment: Order Date: 07/17/24Order Info: [id number] - CBCD Performed By: #### L 500.4050, L100.0100, L501.9985, L500.4100 ####[facility] [address] [place], [address] Comprehensive Metabolic Prof ilon 11-15-2024 Albumin [Mass/Vol] 4.2 g/dL Normal 3.4-4.8 [facility] Comment on above: Order Comment: Order Date: 07/17/24Order Info: [id number] - CMPOrder Info: [id number] - LIPID Performed By: #### L 500.4050, L100.0100, L501.9985, L500.4100 ####[facility] [address] [place], [address] Albumin/Globulin [Mass ratio] 1.5 {ratio} Normal 0.9-2.4 [facility] Comment on above: Order Comment: Order Date: 07/17/24Order Info: [id number] - CMPOrder Info: [id number] - LIPID Performed By: #### L 500.4050, L100.0100, L501.9985, L500.4100 ####[facility] [address] [place], [address] ALK PHOS 61 U/L Normal 40-129 [facility] Comment on above: Order Comment: Order Date: 07/17/24Order Info: [id number] - CMPOrder Info: [id number] - LIPID Performed By: #### L 500.4050, L100.0100, L501.9985, L500.4100 ####[facility] [address] [place], [address] ALT [Catalytic activity/Vol] 30 U/L Normal <=46 [facility] Comment on above: Order Comment: Order Date: 07/17/24Order Info: [id number] - CMPOrder Info: [id number] - LIPID Performed By: #### L 500.4050, L100.0100, L501.9985, L500.4100 ####[facility] [address] [place], [address] AST [Catalytic activity/Vol] 29 U/L Normal <=37 [facility] Comment on above: Order Comment: Order Date: 07/17/24Order Info: [id number] - CMPOrder Info: [id number] - LIPID Performed By: #### L 500.4050, L100.0100, L501.9985, L500.4100 ####[facility] [address] [place], [address] Bilirubin [Mass/Vol] 0.57 mg/dL Normal 0.00-1.30 [facility] Comment on above: Order Comment: Order Date: 07/17/24Order Info: [id number] - CMPOrder Info: [id number] - LIPID Performed By: #### L 500.4050, L100.0100, L501.9985, L500.4100 ####[facility] [address] [place], [address] BUN/CRE 20.5 RATIO High 10-20 [facility] Comment on above: Order Comment: Order Date: 07/17/24Order Info: [id number] - CMPOrder Info: [id number] - LIPID Performed By: #### L 500.4050, L100.0100, L501.9985, L500.4100 ####[facility] [address] [place], [address] Calcium [Mass/Vol] 9.3 mg/dL Normal 7.6-11.0 [facility] Comment on above: Order Comment: Order Date: 07/17/24Order Info: [id number] - CMPOrder Info: [id number] - LIPID Performed By: #### L 500.4050, L100.0100, L501.9985, L500.4100 ####[facility] [address] [place], [address] Chloride [Moles/Vol] 103 mmol/L Normal 98-108 [facility] Comment on above: Order Comment: Order Date: 07/17/24Order Info: [id number] - CMPOrder Info: [id number] - LIPID Performed By: #### L 500.4050, L100.0100, L501.9985, L500.4100 ####[facility] [address] [place], [address] CO2 [Moles/Vol] 20.6 mmol/L Low 21.0-32.0 [facility] Comment on above: Order Comment: Order Date: 07/17/24Order Info: [id number] - CMPOrder Info: [id number] - LIPID Performed By: #### L 500.4050, L100.0100, L501.9985, L500.4100 ####[facility] [address] [place], [address] Creatinine [Mass/Vol] 1.21 mg/dL High 0.70-1.20 [facility] Comment on above: Order Comment: Order Date: 07/17/24Order Info: [id number] - CMPOrder Info: [id number] - LIPID Performed By: #### L 500.4050, L100.0100, L501.9985, L500.4100 ####[facility] [address] [place], [address] GAP 13 Normal 5-15 [facility] Comment on above: Order Comment: Order Date: 07/17/24Order Info: [id number] - CMPOrder Info: [id number] - LIPID Performed By: #### L 500.4050, L100.0100, L501.9985, L500.4100 ####[facility] [address] [place], [address] GFR/1.73 sq M.predicted among non-blacks MDRD (S/P/Bld) [Vol rate/Area] 59 mL/min/{1.73_m2} Low >60 [facility] Comment on above: Order Comment: Order Date: 07/17/24Order Info: [id number] - CMPOrder Info: [id number] - LIPID Result Comment: mL/m in/1.73m2 CKD-EPI Creatinine Equation (2020) Performed By: #### L 500.4050, L100.0100, L501.9985, L500.4100 ####[facility] [address], [address] Globulin (S) [Mass/Vol] 2.8 g/dL Normal 2.2-4.2 [facility] Comment on above: Order Comment: Order Date: 07/17/24Order Info: [id number] - CMPOrder Info: [id number] - LIPID Performed By: #### L 500.4050, L100.0100, L501.9985, L500.4100 ####[facility] [address] [place], [address] Glucose [Mass/Vol] 152 mg/dL High 70-99 [facility] Comment on above: Order Comment: Order Date: 07/17/24Order Info: [id number] - CMPOrder Info: [id number] - LIPID Performed By: #### L 500.4050, L100.0100, L501.9985, L500.4100 ####[facility] [address] [place], [address] Potassium [Moles/Vol] 5.1 mmol/L Normal 3.3-5.1 [facility] Comment on above: Order Comment: Order Date: 07/17/24Order Info: [id number] - CMPOrder Info: [id number] - LIPID Performed By: #### L 500.4050, L100.0100, L501.9985, L500.4100 ####[facility] [address] [place], [address] Sodium [Moles/Vol] 136 mmol/L Normal 133-145 [facility] Comment on above: Order Comment: Order Date: 07/17/24Order Info: [id number] - CMPOrder Info: [id number] - LIPID Performed By: #### L 500.4050, L100.0100, L501.9985, L500.4100 ####[facility] [address] [place], [address] T PROT 7.0 g/dL Normal 5.9-8.4 [facility] Comment on above: Order Comment: Order Date: 07/17/24Order Info: [id number] - CMPOrder Info: [id number] - LIPID Performed By: #### L 500.4050, L100.0100, L501.9985, L500.4100 ####[facility] [address] [place], [address] Urea nitrogen [Mass/Vol] 25 mg/dL High 4-19 [facility] Comment on above: Order Comment: Order Date: 07/17/24Order Info: [id number] - CMPOrder Info: [id number] - LIPID Performed By: #### L 500.4050, L100.0100, L501.9985, L500.4100 ####[facility] [address] [place], [address] Hemoglobin A1con 11-15-2024 HbA1c (Bld) [Mass fraction] 7.0 % High <=5.6 [facility] Comment on above: Order Comment: Order Date: 07/17/24Order Info: [id number] - A1C Result Comment: Norm al < 5.7 % Prediabetic 5.7 - 6.4 % Diabetic >or= 6.5 % Please note range changes. Performed By: #### L 500.4050, L100.0100, L501.9985, L500.4100 ####[facility] [address] [place], [address] Lipid Profileon 11-15-2024 CHOL:HDL 3.31 Normal [facility] Comment on above: Order Comment: Order Date: 07/17/24Order Info: [id number] - CMPOrder Info: [id number] - LIPID Performed By: #### L 500.4050, L100.0100, L501.9985, L500.4100 ####[facility] [address] [place], [address] Cholesterol [Mass/Vol] 118 mg/dL Normal <=200 [facility] Comment on above: Order Comment: Order Date: 07/17/24Order Info: [id number] - CMPOrder Info: [id number] - LIPID Result Comment: Chol esterol level, Desirable <200 mg/dL Borderline high cholesterol 200-239 mg/dL High cholesterol >=240 mg/dL Recommendations of the NCEP Adult Treatment Panel for the following risk-cutoff thresholds for the [place] population. Performed By: #### L 500.4050, L100.0100, L501.9985, L500.4100 ####[facility] [address] [place], [address] Cholesterol in HDL [Mass/Vol] 36 mg/dL Low [facility] Comment on above: Order Comment: Order Date: 07/17/24Order Info: [id number] - CMPOrder Info: [id number] - LIPID Result Comment: Elizabeth onal Cholesterol Education Program (NCEP) guidelines: <40 mg/dL: Low HDL-cholesterol (major risk factor for CHD) >= 60 mg/dL: High HDL-cholesterol (negative risk factor for CHD) HDL-cholesterol is affected by a number of factors, e.g. smoking, exercise, hormones, sex and age. Performed By: #### L 500.4050, L100.0100, L501.9985, L500.4100 ####[facility] [address] [place], [address] Cholesterol in LDL [Mass/Vol] 38 mg/dL Normal [facility] Comment on above: Order Comment: Order Date: 07/17/24Order Info: [id number] - CMPOrder Info: [id number] - LIPID Result Comment: Bord pfiozc=973-643 mg/dL Higher Qzai=007 mg/dL or greater Friedwald Equation for LDL-C Performed By: #### L 500.4050, L100.0100, L501.9985, L500.4100 ####[facility] [address] [place], [address] Cholesterol in VLDL [Mass/Vol] 45 mg/dL High 5-40 [facility] Comment on above: Order Comment: Order Date: 07/17/24Order Info: [id number] - CMPOrder Info: [id number] - LIPID Performed By: #### L 500.4050, L100.0100, L501.9985, L500.4100 ####[facility] [address] [place], [address] Triglyceride [Mass/Vol] 224 mg/dL High [facility] Comment on above: Order Comment: Order Date: 07/17/24Order Info: [id number] - CMPOrder Info: [id number] - LIPID Result Comment: The drugs N-Acetylcysteine and Metamizole may falsely depress this assay. Normal range: <150 mg/dL Borderline High: 150-199 mg/dL High: 200-499 mg/dL Very High: >500 mg/dL Performed By: #### L 500.4050, L100.0100, L501.9985, L500.4100 ####[facility] [address] [place], [address] Microalb:Creat Ratio,Random URon 11-15-2024 Creatinine [Mass/Vol] 62.00 mg/dL Normal 39.00- 259.0 0 [facility] Comment on above: Order Comment: Order Date: 07/17/24Order Info: [id number] - MIALB Performed By: #### L 502.0250, L506.1001 ####[facility] [address] [place], [address] MALB:CREAT UNABLE TO CALCULATE Normal <30 mg/g CRE [facility] Comment on above: Order Comment: Order Date: 07/17/24Order Info: [id number] - MIALB Performed By: #### L 502.0250, L506.1001 ####[facility] [address] [place], [address] MICROALBUMIN,UR < 12.0 Normal <20 mg/L [facility] Comment on above: Order Comment: Order Date: 07/17/24Order Info: [id number] - MIALB Performed By: #### L 502.0250, L506.1001 ####[facility] [address], [address] Vitamin D,25 Hydroxyon 11-15 Vitamin D 25-OH 34.7 ng/mL Normal 30-100 [facility] Comment on above: Order Comment: Order Date: 07/17/24Order Info: [id number] - CMPOrder Info: [id number] - LIPID Result Comment: Yin min D Status Deficiency: <20 ng/mL (50nmol/L) Insufficiency: 20-30 ng/mL (50-75 nmol/L) Sufficiency: 30-100 ng/mL (75-250 nmol/L) Toxicity: >100 ng/mL (>250 nmol/L) Performed By: #### L 502.0250, L506.1001 ####[facility] [address] [place], [address] Absolute lymphocyte countOrd ered By: Kishan Ford on 07-15-2024 Lymphocytes Auto (Unsp spec) [#/Vol] 1.71 10*3/uL 0.83-4.51 [facility] Absolute neutrophil countOrd ered By: Kishan Ford on 07-15-2024 Neutrophils (Bld) [#/Vol] 7.2 10*3/uL 2.0-7.7 [facility] Anion gap in Serum or Plasma Ordered By: Kishan Ford on 07-15-2024 Anion gap [Moles/Vol] 11 mmol/L 5-15 [facility] Automated lymphocyte count a s percentage of total leukocytesOrdered By: Kishan Ford on 07-15-2024 Lymphocytes/100 WBC Auto (Unsp spec) 16.1 % Low 19-41 [facility] BUN/creatinine ratioOrdered By: Kishan Ford on 07-15-2024 Urea nitrogen/Creatinine [Mass ratio] 20.5 mg/mg High 10-20 [facility] Basophil percentageOrdered B y: Kishan Johnsonbrando on 07-15-2024 Basophils/100 WBC (Bld) 0.9 % 0-1 [facility] Bilirubin, totalOrdered By: Kishan Johnsonbrando on 07-15-2024 Bilirubin [Mass/Vol] 0.62 mg/dL 0.00-1.30 [facility] CBC W/Diff, Automatedon Absolute Lymph 1.71 X10 3/uL Normal 0.83-4.51 [facility] Comment on above: Performed By: #### L 100.0100, L503.6030, L503.6550, L500.4100, L506.1001, L500.4050, L502.0250, L501.9985 ####[facility] [address] [place], [address] Absolute Neut 7.2 X10 3/uL Normal 2.0-7.7 [facility] Comment on above: Performed By: #### L 100.0100, L503.6030, L503.6550, L500.4100, L506.1001, L500.4050, L502.0250, L501.9985 ####[facility] [address] [place], [address] Basophils/100 WBC (Bld) 0.9 % Normal 0-1 [facility] Comment on above: Performed By: #### L 100.0100, L503.6030, L503.6550, L500.4100, L506.1001, L500.4050, L502.0250, L501.9985 ####[facility] [address] [place], [address] Eosinophils/100 WBC (Bld) 3.0 % Normal 0-5 [facility] Comment on above: Performed By: #### L 100.0100, L503.6030, L503.6550, L500.4100, L506.1001, L500.4050, L502.0250, L501.9985 ####[facility] [address] [place], [address] Erythrocyte distribution width (RBC) [Ratio] 13.8 % Normal 11.6-14.6 [facility] Comment on above: Performed By: #### L 100.0100, L503.6030, L503.6550, L500.4100, L506.1001, L500.4050, L502.0250, L501.9985 ####[facility] [address] [place], [address] Hematocrit (Bld) [Volume fraction] 42.8 % Normal 40-54 [facility] Comment on above: Performed By: #### L 100.0100, L503.6030, L503.6550, L500.4100, L506.1001, L500.4050, L502.0250, L501.9985 ####[facility] [address] [place], [address] Hemoglobin (Bld) [Mass/Vol] 14.2 g/dL Normal 13.0-16.5 [facility] Comment on above: Performed By: #### L 100.0100, L503.6030, L503.6550, L500.4100, L506.1001, L500.4050, L502.0250, L501.9985 ####[facility] [address] [place], [address] IG% 0.500 Normal 0.0-0.9 [facility] Comment on above: Result Comment: IG% - Immature Granulocytes (promyelocytes, myelocytes and metamyelocytes) > 1% indicates that a LEFT SHIFT is Present. Performed By: #### L 100.0100, L503.6030, L503.6550, L500.4100, L506.1001, L500.4050, L502.0250, L501.9985 ####[facility] [address] [place], [address] Lymphocytes/100 WBC (Bld) 16.1 % Low 19-41 [facility] Comment on above: Performed By: #### L 100.0100, L503.6030, L503.6550, L500.4100, L506.1001, L500.4050, L502.0250, L501.9985 ####[facility] [address] [place], [address] MCH (RBC) [Entitic mass] 31.6 pg Normal 27.0-32.0 [facility] Comment on above: Performed By: #### L 100.0100, L503.6030, L503.6550, L500.4100, L506.1001, L500.4050, L502.0250, L501.9985 ####[facility] [address] [place], [address] MCHC (RBC) [Mass/Vol] 33.2 g/dL Normal 32-36 [facility] Comment on above: Performed By: #### L 100.0100, L503.6030, L503.6550, L500.4100, L506.1001, L500.4050, L502.0250, L501.9985 ####[facility] [address] [place], [address] MCV (RBC) [Entitic vol] 95.3 fL High 80-94 [facility] Comment on above: Performed By: #### L 100.0100, L503.6030, L503.6550, L500.4100, L506.1001, L500.4050, L502.0250, L501.9985 ####[facility] [address] [place], [address] Monocytes/100 WBC (Bld) 11.4 % High 0-10 [facility] Comment on above: Performed By: #### L 100.0100, L503.6030, L503.6550, L500.4100, L506.1001, L500.4050, L502.0250, L501.9985 ####[facility] [address] [place], [address] Neutrophils/100 WBC (Bld) 68.1 % Normal 47-70 [facility] Comment on above: Performed By: #### L 100.0100, L503.6030, L503.6550, L500.4100, L506.1001, L500.4050, L502.0250, L501.9985 ####[facility] [address] [place], [address] Nucleated RBC (Bld) [#/Vol] 0 10*3/uL Normal 0-5 [facility] Comment on above: Performed By: #### L 100.0100, L503.6030, L503.6550, L500.4100, L506.1001, L500.4050, L502.0250, L501.9985 ####[facility] [address] [place], [address] Platelet mean volume (Bld) [Entitic vol] 10.1 fL Normal 6.2-12.0 [facility] Comment on above: Performed By: #### L 100.0100, L503.6030, L503.6550, L500.4100, L506.1001, L500.4050, L502.0250, L501.9985 ####[facility] [address] [place], [address] Platelets (Bld) [#/Vol] 248 10*3/uL Normal 150-450 [facility] Comment on above: Performed By: #### L 100.0100, L503.6030, L503.6550, L500.4100, L506.1001, L500.4050, L502.0250, L501.9985 ####[facility] [address] [place], [place], [phone] RBC (Bld) [#/Vol] 4.49 10*6/uL Low 4.6-6.2 [facility] Comment on above: Performed By: #### L 100.0100, L503.6030, L503.6550, L500.4100, L506.1001, L500.4050, L502.0250, L501.9985 ####[facility] [address] [place], [address] RDW SD 48.8 fl High 35.1-43.9 [facility] Comment on above: Performed By: #### L 100.0100, L503.6030, L503.6550, L500.4100, L506.1001, L500.4050, L502.0250, L501.9985 ####[facility] [address] [place], [address] WBC (Bld) [#/Vol] 10.6 10*3/uL Normal 4.4-11.0 [facility] Comment on above: Performed By: #### L 100.0100, L503.6030, L503.6550, L500.4100, L506.1001, L500.4050, L502.0250, L501.9985 ####[facility] [address] [place], [address] Calculated very low density lipoprotein (VLDL) cholesterol measurementOrdered By: Kishan Ford on 07-15-2024 Calculated very low density lipoprotein (VLDL) cholesterol measurement 39 mg/dL 5-40 [facility] Carbon dioxide, total [Moles /volume] in Central venous bloodOrdered By: Kishan Ford on 07-15-2024 CO2 [Moles/Vol] 23.4 mmol/L 21.0-32.0 [facility] Chloride assayOrdered By: Garima Ford on 07-15-2024 Chloride [Moles/Vol] 101 mmol/L 98-108 [facility] Comprehensive Metabolic Prof ilon 07-15-2024 Albumin [Mass/Vol] 4.7 g/dL Normal 3.4-4.8 [facility] Comment on above: Performed By: #### L 100.0100, L503.6030, L503.6550, L500.4100, L506.1001, L500.4050, L502.0250, L501.9985 #### [facility] [address] [place], [address] Albumin/Globulin [Mass ratio] 1.6 {ratio} Normal 0.9-2.4 [facility] Comment on above: Performed By: #### L 100.0100, L503.6030, L503.6550, L500.4100, L506.1001, L500.4050, L502.0250, L501.9985 #### [facility] [address] [place], [address] ALK PHOS 68 U/L Normal 40-129 [facility] Comment on above: Performed By: #### L 100.0100, L503.6030, L503.6550, L500.4100, L506.1001, L500.4050, L502.0250, L501.9985 #### [facility] [address] [place], [address] ALT [Catalytic activity/Vol] 26 U/L Normal <=46 [facility] Comment on above: Performed By: #### L 100.0100, L503.6030, L503.6550, L500.4100, L506.1001, L500.4050, L502.0250, L501.9985 #### [facility] [address] [place], [address] AST [Catalytic activity/Vol] 30 U/L Normal <=37 [facility] Comment on above: Performed By: #### L 100.0100, L503.6030, L503.6550, L500.4100, L506.1001, L500.4050, L502.0250, L501.9985 #### [facility] [address] [place], [address] Bilirubin [Mass/Vol] 0.62 mg/dL Normal 0.00-1.30 [facility] Comment on above: Performed By: #### L 100.0100, L503.6030, L503.6550, L500.4100, L506.1001, L500.4050, L502.0250, L501.9985 #### [facility] [address] [place], [address] BUN/CRE 20.5 RATIO High 10-20 [facility] Comment on above: Performed By: #### L 100.0100, L503.6030, L503.6550, L500.4100, L506.1001, L500.4050, L502.0250, L501.9985 #### [facility] [address] [place], [address] Calcium [Mass/Vol] 9.6 mg/dL Normal 7.6-11.0 [facility] Comment on above: Performed By: #### L 100.0100, L503.6030, L503.6550, L500.4100, L506.1001, L500.4050, L502.0250, L501.9985 #### [facility] [address] [place], [address] Chloride [Moles/Vol] 101 mmol/L Normal 98-108 [facility] Comment on above: Performed By: #### L 100.0100, L503.6030, L503.6550, L500.4100, L506.1001, L500.4050, L502.0250, L501.9985 #### [facility] [address] [place], [place], [id number] CO2 [Moles/Vol] 23.4 mmol/L Normal 21.0-32.0 [facility] Comment on above: Performed By: #### L 100.0100, L503.6030, L503.6550, L500.4100, L506.1001, L500.4050, L502.0250, L501.9985 #### [facility] [address] [place], [place], [phone] Creatinine [Mass/Vol] 1.15 mg/dL Normal 0.70-1.20 [facility] Comment on above: Performed By: #### L 100.0100, L503.6030, L503.6550, L500.4100, L506.1001, L500.4050, L502.0250, L501.9985 #### [facility] [address] [place], [place], [id number] GAP 11 Normal 5-15 [facility] Comment on above: Performed By: #### L 100.0100, L503.6030, L503.6550, L500.4100, L506.1001, L500.4050, L502.0250, L501.9985 #### [facility] [address] [place], [place], [phone] GFR/1.73 sq M.predicted among non-blacks MDRD (S/P/Bld) [Vol rate/Area] 63 mL/min/{1.73_m2} Normal >60 [facility] Comment on above: Result Comment: mL/m in/1.73m2 CKD-EPI Creatinine Equation (2020) Performed By: #### L 100.0100, L503.6030, L503.6550, L500.4100, L506.1001, L500.4050, L502.0250, L501.9985 #### [facility] [address] [place], [address] Globulin (S) [Mass/Vol] 3.0 g/dL Normal 2.2-4.2 [facility] Comment on above: Performed By: #### L 100.0100, L503.6030, L503.6550, L500.4100, L506.1001, L500.4050, L502.0250, L501.9985 #### [facility] [address] [place], [address] Glucose [Mass/Vol] 143 mg/dL High 70-99 [facility] Comment on above: Performed By: #### L 100.0100, L503.6030, L503.6550, L500.4100, L506.1001, L500.4050, L502.0250, L501.9985 #### [facility] [address] [place], [address] Potassium [Moles/Vol] 4.4 mmol/L Normal 3.3-5.1 [facility] Comment on above: Performed By: #### L 100.0100, L503.6030, L503.6550, L500.4100, L506.1001, L500.4050, L502.0250, L501.9985 #### [facility] [address] [place], [address] Sodium [Moles/Vol] 136 mmol/L Normal 133-145 [facility] Comment on above: Performed By: #### L 100.0100, L503.6030, L503.6550, L500.4100, L506.1001, L500.4050, L502.0250, L501.9985 #### [facility] [address] [place], [address] T PROT 7.7 g/dL Normal 5.9-8.4 [facility] Comment on above: Performed By: #### L 100.0100, L503.6030, L503.6550, L500.4100, L506.1001, L500.4050, L502.0250, L501.9985 #### [facility] [address], [address] Urea nitrogen [Mass/Vol] 24 mg/dL High 4-19 [facility] Comment on above: Performed By: #### L 100.0100, L503.6030, L503.6550, L500.4100, L506.1001, L500.4050, L502.0250, L501.9985 #### [facility] [address], [address] Eosinophil percentageOrdered By: Kishan Ford on 07-15-2024 Eosinophils/100 WBC (Bld) 3.0 % 0-5 [facility] Erythrocyte distribution wid th ratioOrdered By: Kishan Ford on 07-15-2024 Erythrocyte distribution width (RBC) [Ratio] 13.8 % 11.6-14.6 [facility] Erythrocyte distribution wid th standard deviationOrdered By: Kishan Ford on 07-15-2024 Erythrocyte distribution width (RBC) [Ratio] 48.8 fl High 35.1-43.9 [facility] Ferritinon 07-15-2024 Ferritin [Mass/Vol] 316 ng/mL Normal 37-417 [facility] Comment on above: Performed By: #### L 100.0100, L503.6030, L503.6550, L500.4100, L506.1001, L500.4050, L502.0250, L501.9985 #### [facility] [address], [address] Glomerular filtration rate ( GFR) estimation/1.73 sq m using serum, plasma, or whole bOrdered By: Kishan Ford on 07-15-2024 GFR/1.73 sq M.predicted among non-blacks MDRD (S/P/Bld) [Vol rate/Area] 63 mL/min/{1.73_m2} >60 [facility] Comment on above: mL/min/1.73m2 CKD-EP I Creatinine Equation (2020) Hematocrit Auto (Bld) [Volum e fraction]Ordered By: Kishan Ford on 07-15-2024 Hematocrit (Bld) [Volume fraction] 42.8 % 40-54 [facility] Hemoglobin A1con 07-15-2024 HbA1c (Bld) [Mass fraction] 6.8 % High <=5.6 [facility] Comment on above: Result Comment: Norm al < 5.7 % Prediabetic 5.7 - 6.4 % Diabetic >or= 6.5 % Please note range changes. Performed By: #### L 100.0100, L503.6030, L503.6550, L500.4100, L506.1001, L500.4050, L502.0250, L501.9985 #### [facility] [address] [place], [place], [id number] Hemoglobin A1c percentageOrd ered By: Kishan Ford on 07-15-2024 HbA1c (Bld) [Mass fraction] 6.8 % High <5.7 [facility] Comment on above: Normal < 5.7 % Predi abetic 5.7 - 6.4 % Diabetic >or= 6.5 % Please note range changes. Hemoglobin measurementOrdere d By: Kishan Ford on 07-15-2024 Hemoglobin (Bld) [Mass/Vol] 14.2 g/dL 13.0-16.5 [facility] Immature granulocytes/100 WB C Auto (Bld)Ordered By: Kishan Ford on 07-15-2024 Immature granulocytes/100 WBC (Bld) 0.500 % 0.0-0.9 [facility] Comment on above: IG% - Immature Granu locytes (promyelocytes, myelocytes and metamyelocytes) > 1% indicates that a LEFT SHIFT is Present. Iron measurement (mass/mass) Ordered By: Kishan Ford on 07-15-2024 Iron (Unsp spec) [Mass/Mass] 56 ug/dL Low 65-175 [facility] Iron+Iron Binding Capacityon 07-15-2024 Iron [Mass/Vol] 56 ug/dL Low 65-175 [facility] Comment on above: Performed By: #### L 100.0100, L503.6030, L503.6550, L500.4100, L506.1001, L500.4050, L502.0250, L501.9985 #### [facility] [address] [place], [address] IRON SATURATION 18.0 Normal 9-55 [facility] Comment on above: Performed By: #### L 100.0100, L503.6030, L503.6550, L500.4100, L506.1001, L500.4050, L502.0250, L501.9985 #### [facility] [address] [place], [address] TIBC 304 ug/dL Normal 250-450 [facility] Comment on above: Performed By: #### L 100.0100, L503.6030, L503.6550, L500.4100, L506.1001, L500.4050, L502.0250, L501.9985 #### [facility] [address] [place], [address] UIBC 248 ug/dL Normal 228-428 [facility] Comment on above: Performed By: #### L 100.0100, L503.6030, L503.6550, L500.4100, L506.1001, L500.4050, L502.0250, L501.9985 #### [facility] [address] [place], [address] LDL calc ser/plasOrdered By: Kishan Ford on 07-15-2024 Cholesterol in LDL [Mass/Vol] 48 mg/dL [facility] Comment on above: Ozjbccbdch=599-632 m g/dL & Higher Ugap=019 mg/dL or greater Laboratory - Chemistry and C hemistry - challengeOrdered By: Kishan Ford on 07-15-2024 AST [Catalytic activity/Vol] 30 U/L <38 [facility] Lipid Profileon 07-15-2024 CHOL:HDL 3.17 Normal [facility] Comment on above: Performed By: #### L 100.0100, L503.6030, L503.6550, L500.4100, L506.1001, L500.4050, L502.0250, L501.9985 #### [facility] [address] [place], [address] Cholesterol [Mass/Vol] 126 mg/dL Normal <=200 [facility] Comment on above: Result Comment: Chol esterol level, Desirable <200 mg/dL Borderline high cholesterol 200-239 mg/dL High cholesterol >=240 mg/dL Recommendations of the NCEP Adult Treatment Panel for the following risk-cutoff thresholds for the [place] population. Performed By: #### L 100.0100, L503.6030, L503.6550, L500.4100, L506.1001, L500.4050, L502.0250, L501.9985 #### [facility] [address] [place], [address] Cholesterol in HDL [Mass/Vol] 40 mg/dL Normal [facility] Comment on above: Result Comment: [facility] onal Cholesterol Education Program (NCEP) guidelines: <40 mg/dL: Low HDL-cholesterol (major risk factor for CHD) >= 60 mg/dL: High HDL-cholesterol (negative risk factor for CHD) HDL-cholesterol is affected by a number of factors, e.g. smoking, exercise, hormones, sex and age. Performed By: #### L 100.0100, L503.6030, L503.6550, L500.4100, L506.1001, L500.4050, L502.0250, L501.9985 #### [facility] [address] [place], [address] Cholesterol in LDL [Mass/Vol] 48 mg/dL Normal [facility] Comment on above: Result Comment: Bord uenkoq=264-311 mg/dL Higher Hxvk=436 mg/dL or greater Performed By: #### L 100.0100, L503.6030, L503.6550, L500.4100, L506.1001, L500.4050, L502.0250, L501.9985 #### [facility] [address] [place], [address] Cholesterol in VLDL [Mass/Vol] 39 mg/dL Normal 5-40 [facility] Comment on above: Performed By: #### L 100.0100, L503.6030, L503.6550, L500.4100, L506.1001, L500.4050, L502.0250, L501.9985 #### [facility] Laboratory [address], [address] Triglyceride [Mass/Vol] 194 mg/dL Normal [facility] Comment on above: Result Comment: The drugs N-Acetylcysteine and Metamizole may falsely depress this assay. Normal range: <150 mg/dL Borderline High: 150-199 mg/dL High: 200-499 mg/dL Very High: >500 mg/dL Performed By: #### L 100.0100, L503.6030, L503.6550, L500.4100, L506.1001, L500.4050, L502.0250, L501.9985 #### [facility] [address] [place], [place], [id number] MCV (mean corpuscular volume ) determinationOrdered By: Kishan Ford on 07-15-2024 MCV (RBC) [Entitic vol] 95.3 fL High 80-94 [facility] Mean corpuscular hemoglobin (MCH) determinationOrdered By: Kishan Ford on 07-15-2024 MCH (RBC) [Entitic mass] 31.6 pg 27.0-32.0 [facility] Mean corpuscular hemoglobin concentration (MCHC) determinationOrdered By: Kishan Ford on 07-15-2024 MCHC (RBC) [Mass/Vol] 33.2 g/dL 32-36 [facility] Mean platelet volume determi nationOrdered By: Kishan Ford on 07-15-2024 Platelet mean volume (Bld) [Entitic vol] 10.1 fL 6.2-12.0 [facility] Microalb:Creat Ratio,Random URon 07-15-2024 Creatinine [Mass/Vol] 103.00 mg/dL Normal 39.00- 259.0 0 [facility] Comment on above: Performed By: #### L 100.0100, L503.6030, L503.6550, L500.4100, L506.1001, L500.4050, L502.0250, L501.9985 #### [facility] [address] [place], [place], [id number] MALB:CREAT UNABLE TO CALCULATE Normal [facility] Comment on above: Performed By: #### L 100.0100, L503.6030, L503.6550, L500.4100, L506.1001, L500.4050, L502.0250, L501.9985 #### [facility] [address] [place], [place], [id number] MICROALBUMIN,UR < 12.0 Normal NO RANGE EST. [facility] Comment on above: Performed By: #### L 100.0100, L503.6030, L503.6550, L500.4100, L506.1001, L500.4050, L502.0250, L501.9985 #### [facility] [address] [place], [place], [id number] Microalbumin/creat ratio urO rdered By: Kishan Ford on 07-15-2024 Urine microalbumin/creatinine ratio measurement UNABLE TO CALCULATE mg/g CRE [facility] Monocyte percentageOrdered B y: Kishan Ford on 07-15-2024 Monocytes/100 WBC (Bld) 11.4 % High 0-10 [facility] Neutrophil percentageOrdered By: Kishan Ford on 07-15-2024 Neutrophils/100 WBC (Bld) 68.1 % 47-70 [facility] No Panel InformationOrdered By: Kishan Ford on 07-15-2024 Unsaturated Iron Binding Capacity 248 ug/dL 228-428 [facility] Nucleated red blood cell per centageOrdered By: Kishan Ford on 07-15-2024 Nucleated RBC/100 WBC (Bld) [Ratio] 0 % 0-5 [facility] Platelet countOrdered By: Garima Ford on 07-15-2024 Platelets (Bld) [#/Vol] 248 10*3/uL 150-450 [facility] Potassium measurement (mass/ volume)Ordered By: Kishan Ford on 07-15-2024 Potassium (Unsp spec) [Mass/Vol] 4.4 mmol/L 3.3-5.1 [facility] RBC Auto (Bld) [#/Vol]Ordere d By: Kishan Ford on 07-15-2024 RBC (Bld) [#/Vol] 4.49 10*6/uL Low 4.6-6.2 [facility] Random urine creatinine madeline urement (mass/volume)Ordered By: Kishan Ford on 07-15-2024 Creatinine Unsp time (U) [Mass/Vol] 103.00 mg/dL 39.00-259.0 0 [facility] Screening total cholesterol/ high density lipoprotein (HDL) cholesterol ratioOrdered By: Kishan Ford on 07-15-2024 Cholesterol.total/Choles terol in HDL [Mass ratio] 3.17 {ratio} [facility] Serum creatinine measurement (mass/volume)Ordered By: Kishan Ford on 07-15-2024 Creatinine [Mass/Vol] 1.15 mg/dL 0.70-1.20 [facility] Serum globulin measurementOr dered By: Kishan Ford on 07-15-2024 Globulin (S) [Mass/Vol] 3.0 g/dL 2.2-4.2 [facility] Serum glucose measurement (m ass/volume)Ordered By: Kishan Ford on 07-15-2024 Glucose [Mass/Vol] 143 mg/dL High 70-99 [facility] Serum or plasma alanine miranda otransferase (ALT) measurementOrdered By: Kishan Ford on 07-15-2024 ALT [Catalytic activity/Vol] 26 U/L <47 [facility] Serum or plasma albumin madeline urement (mass/volume)Ordered By: Kishan Ford on 07-15-2024 Albumin [Mass/Vol] 4.7 g/dL 3.4-4.8 [facility] Serum or plasma albumin/glob ulin mass ratioOrdered By: Kishan Ford on 07-15-2024 Albumin/Globulin [Mass ratio] 1.6 {ratio} 0.9-2.4 [facility] Serum or plasma alkaline sugar sphatase measurementOrdered By: Kishan Ford on 07-15-2024 ALP [Catalytic activity/Vol] 68 U/L 40-129 [facility] Serum or plasma calcium madeline urement (mass/volume)Ordered By: Kishan Ford on 07-15-2024 Calcium [Mass/Vol] 9.6 mg/dL 7.6-11.0 [facility] Serum or plasma cholesterol in HDL measurement (mass/volume)Ordered By: Kishan Ford on 07-15-2024 Cholesterol in HDL [Mass/Vol] 40 mg/dL >40 [facility] Comment on above: National Cholesterol Education Program (NCEP) guidelines:<40 mg/dL: Low HDL-cholesterol (major risk factor for CHD)>= 60 mg/dL: High HDL-cholesterol (negative risk factor for CHD)HDL-cholesterol is affected by a number of factors, e.g. smoking, exercise, hormones, sex and age. Serum or plasma cholesterol measurement (mass/volume)Ordered By: Kishan Ford on 07-15-2024 Cholesterol [Mass/Vol] 126 mg/dL <201 [facility] Comment on above: Cholesterol level, D esirable <200 mg/dLBorderline high cholesterol 200-239 mg/dLHigh cholesterol >=240 mg/dLRecommendations of the NCEP Adult Treatment Panel for the following risk-cutoff thresholds for the [place] population. Serum or plasma ferritin parris surement (mass/volume)Ordered By: Kishan Ford on 07-15-2024 Ferritin [Mass/Vol] 316 ng/mL 37-417 [facility] Serum or plasma iron saturat ion measurement (mass fraction)Ordered By: Kishan Ford on 07-15-2024 Iron saturation [Mass fraction] 18.0 % 9-55 [facility] Serum or plasma urea nitroge n measurement (mass/volume)Ordered By: Kishan Ford on 07-15-2024 Urea nitrogen [Mass/Vol] 24 mg/dL High 4-19 [facility] Sodium levelOrdered By: Kishan Ford on 07-15-2024 Sodium [Moles/Vol] 136 mmol/L 133-145 [facility] Total proteinOrdered By: Edison Ford on 07-15-2024 Protein [Mass/Vol] 7.7 g/dL 5.9-8.4 [facility] Triglycerides measurementOrd ered By: Kishan Ford on 07-15-2024 Triglyceride [Mass/Vol] 194 mg/dL <199 [facility] Comment on above: The drugs N-Acetylcy steine and Metamizole may falsely depress this assay. Normal range: <150 mg/dLBorderline High: 150-199 mg/dLHigh: 200-499 mg/dLVery High: >500 mg/dL Urine albumin measurement [facility] detection limit of 20 mg/L or less (mass/volume)Ordered By: Kishan Ford on 07-15-2024 Albumin DL <= 20 mg/L (U) [Mass/Vol] < 12.0 mg/L NO RANGE EST. [facility] Vitamin D,25 Hydroxyon 07-15 Vitamin D 25-OH 35.0 ng/mL Normal 30-100 [facility] Comment on above: Result Comment: Yin min D Status Deficiency: <20 ng/mL (50nmol/L) Insufficiency: 20-30 ng/mL (50-75 nmol/L) Sufficiency: 30-100 ng/mL (75-250 nmol/L) Toxicity: >100 ng/mL (>250 nmol/L) Performed By: #### L 100.0100, L503.6030, L503.6550, L500.4100, L506.1001, L500.4050, L502.0250, L501.9985 #### [facility] [address] [place], [address] White blood cell (WBC) count Ordered By: Kishan Ford on 07-15-2024 WBC (Bld) [#/Vol] 10.6 10*3/uL 4.4-11.0 [facility] Cardiology Visit Reporton Cardiology Visit Report [facility] [address] [place] [address] OFFICE VISIT Date of Service: 07/05/24 MR#: [id number] Acct: [id number] Name: CHAU BARRON Rep #: [id number] : 1940 Provider: Dr. Mat rader MD Age/Sex: 83/M Location: [facility] Status: Signed HPI HPI History of Present Illness Details: Patient comes in today is a very pleasant 83-year-old white male with his for monitoring of his cardiovascular status. The patient status post bypass graft surgery May [facility] at [facility]. He received a HERNANDEZ to the LAD and vein graft to the diagonal vein graft to the ramus branch of the circumflex and a vein graft to the PDA of the right. He also had a wedge resection of his left lower lobe of his lung which was negative for granulomatous disease and negative for cancer. Patient reports he is doing fairly well in his home environment he does complain of some episodic left lower extremity edema. His veins were harvested from the left lower extremity. The patient also has a history of diabetes and some neuropathy in that lower extremity as well. He denies any trauma to his ankle or arthritic issues. Today it does not appear to be more than trace of edema. The patient also has a history of hypertension which is well-controlled his lipids are well- controlled on his current therapy the patient is diabetic and his hemoglobin A1c was 7.6 and glipizide was added to his medications. The patient was evaluated for sleep apnea and had a negative sleep study. The patient's does report that he has fallen off of the exercise wagon. Intake Vital Signs 03/13/24 10:55 07/05/24 10:34 Height 6 ft 3 in 6 ft 3 in Weight: 284 lb 284 lb BMI 35.4 35.4 BP 118/69 103/67 Blood Pressure Location Lt brachial Lt brachial Position Sitting Sitting Respiration 18 18 Pulse 68 73 Pulse Source Monitor Monitor Temp 98.5 F Temperature Source Oral Pulse Oximetry (%) 92 91 Oxygen Delivery Method room air room air Intake Visit Reasons: [address] M [employer] Required: No Accompanied by: Is patient in pain?: No Allergies No Known Allergies Allergy (Verified 07/05/24 10:34) Medications ???Medication ???Instructions ???Recorded ???Confirmed ???Type aspirin 81 mg tablet,delayed 81 mg PO DAILY@0800 07/15/1407/05 History release atorvastatin 40 mg tablet 40 mg PO QHS 07/15/14 07/05/24 His tory coenzyme Q10 50 mg capsule (Co 30 mg PO DAILY 07/15/14 07/05/24 H istory Q-10) metformin 500 mg tablet,extended 500 mg PO BID 07/15/14 07/05/24 Hi story release 24 hr ascorbic acid (vitamin C) 1,000 mg 1 g PO DAILY dietary supplement 06/02/23 07/05/24 History tablet (C-1000) cholecalciferol (vitamin D3) 25 25 mcg PO DAILY dietary supplement 06/02/23 07/05/24 History mcg (1,000 unit) capsule (Vitamin D3) metoprolol tartrate 25 mg tablet 25 mg PO BID 06/29/23 07/05/24 His tory furosemide 40 mg tablet 40 mg PO DAILY PRN if needed for 0 08/24/23 07/05/24 Rx weight gain of 3 pounds or more #30 TABLETS potassium chloride 20 mEq 20 meq PO DAILY PRN if needed take 08/24/23 07/05/24 Rx tablet,extended release with Furosemide #30 TABLETS calcium carbonate 500 mg PO QDAY 10/24/23 07/05/24 H istory valsartan 80 mg tablet 80 mg PO QDAY 10/24/23 07/05/24 Hi story dapagliflozin propanediol 10 mg 10 mg PO DAILY 03/13/24 07/05/24 H istory tablet (Farxiga) magnesium oxide 400 mg PO QDAY 03/13/24 07/05/24 H istory zinc citrate, zinc oxide 50 mg 55 mg PO QDAY 03/13/24 07/05/24 Hi story tablet glipizide 5 mg tablet, extended 5 mg PO QDAY 07/05/24 07/05/24 His tory release 24 hr Ejection fraction %: 60 Have you fallen in the past year?: No PFSH Medical History Cellulitis of left lower leg Pericardial cyst History of left heart catheterization Cancer Myocardial infarct Type 2 diabetes mellitus with hyperglycemia History of hypercholesterolemia History of hypertension DM II (diabetes mellitus, type II), controlled Hyperlipidemia HTN (hypertension) Surgical History Hx of CABG History of recent dental procedure Family History Other Heart disease Social History Smoking Status: Never smoker alcohol intake: current substance use type: does not use caffeine: Yes ROS Const Const: Negative for fatigue or weakness ENT ENT: Negative for dizziness or balance problems Cardio Chest Pain: No Palpitations: No Edema: Left Muscle aches with walking: None Resp Respiratory: Positive (more content not included)... Normal [facility] Venous Duplex US, Unilateral on 06-13-2024 Venous Duplex US, Unilateral [facility] [address] [place] [address] Venous Duplex US, Unilateral 06/13/24 1602 MR#: [id number] Acct: [id number] Name: CHAU BARRON Rep #: [id number] : 1940 83 From: Chiki Medrano MD Attending Dr: Dr. Kishan Ford MD Status: R EG CLI Ordering Dr: Kishan Ford MD Date: 06/13/24 Location: [facility] Sex: M C Admitted: Reason For Study Reason For Study: Left leg swelling RIGHT LEFT CFV is compressible, spontaneous, phasic, competent CFV is compressible, spontaneous, phasic, competent, and demonstrates normal augmentation. and demonstrates normal augmentation. Procedure FV is compressible, spontaneous, phasic, competent This is a venous duplex using B-mode, color flow and and demonstrates normal augmentation. spectral Doppler. POP V is compressible, spontaneous, phasic, competent Exam performed in department. and demonstrates normal augmentation. A preliminary report was called and/or faxed to T/P Trunk is compressible. Liliana. PTV is compressible. LT PerV is compressible. VL/Venous Duplex US, Unilateral Interpretation Summary Deep veins of the left lower extremity are patent and compressible segmentally. There is no evidence of left lower extremity deep vein thrombosis. Ordering Physician: Kishan Ford Referring Physician: Kishan Ford Performed By: Lisa Loyola RVT 06/13/24 1720 Date Chiki Medrano MD CC: Dr. Kishan Ford MD Date Dictated: 06/13/24 1602 Date Transcribed: 06/13/24 1720 Golf [employer] Riveter: Signed Normal [facility] Venous duplex ultrasound rep ortOrdered By: Chiki Medrano on 06-13-2024 US Vein [facility] [address] [place] [address] Venous Duplex US, Unilateral 06/13/24 1602 MR#: [id number] Acct: [id number] Name: CHAU BARRON Rep #:[id number] : 1940 83 From: Chiki Lanier Attending Dr: Dr. Kishan Ford MD Status: REG CLI Ordering Dr: Kishan Ford MD Date: 06/13/24 Location: [facility] Sex: M C Admitted: Reason For Study Reason For Study: Left leg swelling RIGHT LEFT CFV is compressible, spontaneous, phasic, competent CFV is compressible, spontaneous, phasic, competent, and demonstrates normal augmentation. and demonstrates normal augmentation. Procedure FV is compressible, spontaneous, phasic, competent This is a venous duplex using B-mode, color flow and and demonstrates normal augmentation. spectral Doppler. POP V is compressible, spontaneous, phasic, competent Exam performed in department. and demonstrates normal augmentation. A preliminary report was called and/or faxed to T/P Trunk is compressible. Liliana. PTV is compressible. LT PerV is compressible. VL/Venous Duplex US, Unilateral Interpretation Summary Deep veins of the left lower extremity are patent and compressible segmentally. There is no evidence of left lower extremity deep vein thrombosis. Ordering Physician: Kishan Ford Referring Physician: Kishan Ford Performed By: Lisa Loyola Austin 06/13/24 1720 Date _ Chiki Medrano MD CC: Dr. Kishan Ford MD ~ Date Dictated: 06/13/24 1602 Date Transcribed: 06/13/24 172 [employer] Riveter: Signed [facility] Work Phone: Absolute lymphocyte countOrd ered By: Kishan Ford on 04-17-2024 Lymphocytes Auto (Unsp spec) [#/Vol] 1.70 10*3/uL 0.83-4.51 [facility] Absolute neutrophil countOrd ered By: Kishan Ford on 04-17-2024 Neutrophils (Bld) [#/Vol] 6.1 10*3/uL 2.0-7.7 [facility] Albumin DL <= 20 mg/L (U) [M ass/Vol]Ordered By: Kishan Ford on 04-17-2024 Urine Random Microalbumin < 12.0 mg/L NO RANGE EST. [facility] Anion gap in Serum or Plasma Ordered By: Kishan Ford on 04-17-2024 Anion gap [Moles/Vol] 13 mmol/L 5-15 [facility] Automated lymphocyte count a s percentage of total leukocytesOrdered By: Kishan Ford on 04-17-2024 Lymphocytes/100 WBC Auto (Unsp spec) 17.8 % Low 19-41 [facility] BUN/creatinine ratioOrdered By: Kishan Ford on 04-17-2024 Urea nitrogen/Creatinine [Mass ratio] 19.3 mg/mg 10- [facility] Basophil percentageOrdered B y: Kishan Ford on 04-17-2024 Basophils/100 WBC (Bld) 0.8 % 0-1 [facility] Bilirubin, totalOrdered By: Kishan Ford on 04-17-2024 Bilirubin [Mass/Vol] 0.64 mg/dL 0.00-1.30 [facility] CBC W/Diff, Automatedon Absolute Lymph 1.70 X10 3/uL Normal 0.83-4.51 [facility] Comment on above: Order Comment: Order Date: 01/19/24Order Info: [id number] - CBCD Performed By: #### L 503.6550, L501.9985, L503.6150, L100.0100, L500.4100, L502.0250, L500.4050 ####[facility] [address] [place], [address] Absolute Neut 6.1 X10 3/uL Normal 2.0-7.7 [facility] Comment on above: Order Comment: Order Date: 01/19/24Order Info: [id number] - CBCD Performed By: #### L 503.6550, L501.9985, L503.6150, L100.0100, L500.4100, L502.0250, L500.4050 ####[facility] [address] [place], [address] Basophils/100 WBC (Bld) 0.8 % Normal 0-1 [facility] Comment on above: Order Comment: Order Date: 01/19/24Order Info: [id number] - CBCD Performed By: #### L 503.6550, L501.9985, L503.6150, L100.0100, L500.4100, L502.0250, L500.4050 ####[facility] [address] [place], [address] Eosinophils/100 WBC (Bld) 3.7 % Normal 0-5 [facility] Comment on above: Order Comment: Order Date: 01/19/24Order Info: 0184- - CBCD Performed By: #### L 503.6550, L501.9985, L503.6150, L100.0100, L500.4100, L502.0250, L500.4050 ####[facility] [address] [place], [address] Erythrocyte distribution width (RBC) [Ratio] 13.4 % Normal 11.6-14.6 [facility] Comment on above: Order Comment: Order Date: 01/19/24Order Info: [id number] - CBCD Performed By: #### L 503.6550, L501.9985, L503.6150, L100.0100, L500.4100, L502.0250, L500.4050 ####[facility] [address] [place], [address] Hematocrit (Bld) [Volume fraction] 40.5 % Normal 40-54 [facility] Comment on above: Order Comment: Order Date: 01/19/24Order Info: [id number] - CBCD Performed By: #### L 503.6550, L501.9985, L503.6150, L100.0100, L500.4100, L502.0250, L500.4050 ####[facility] [address] [place], [address] Hemoglobin (Bld) [Mass/Vol] 13.5 g/dL Normal 13.0-16.5 [facility] Comment on above: Order Comment: Order Date: 01/19/24Order Info: 0184-1 - CBCD Performed By: #### L 503.6550, L501.9985, L503.6150, L100.0100, L500.4100, L502.0250, L500.4050 ####[facility] [address] [place], [address] IG% 0.600 Normal 0.0-0.9 [facility] Comment on above: Order Comment: Order Date: 01/19/24Order Info: 018- - CBCD Result Comment: IG% - Immature Granulocytes (promyelocytes, myelocytes and metamyelocytes) > 1% indicates that a LEFT SHIFT is Present. Performed By: #### L 503.6550, L501.9985, L503.6150, L100.0100, L500.4100, L502.0250, L500.4050 ####[facility] [address] [place], [address] Lymphocytes/100 WBC (Bld) 17.8 % Low 19-41 [facility] Comment on above: Order Comment: Order Date: 01/19/24Order Info: 0184- - CBCD Performed By: #### L 503.6550, L501.9985, L503.6150, L100.0100, L500.4100, L502.0250, L500.4050 ####[facility] [address] [place], [address] MCH (RBC) [Entitic mass] 31.8 pg Normal 27.0-32.0 [facility] Comment on above: Order Comment: Order Date: 01/19/24Order Info: 0184- - CBCD Performed By: #### L 503.6550, L501.9985, L503.6150, L100.0100, L500.4100, L502.0250, L500.4050 ####[facility] [address] [place], [address] MCHC (RBC) [Mass/Vol] 33.3 g/dL Normal 32-36 [facility] Comment on above: Order Comment: Order Date: 01/19/24Order Info: [id number] - CBCD Performed By: #### L 503.6550, L501.9985, L503.6150, L100.0100, L500.4100, L502.0250, L500.4050 ####[facility] [address] [place], [address] MCV (RBC) [Entitic vol] 95.3 fL High 80-94 [facility] Comment on above: Order Comment: Order Date: 01/19/24Order Info: [id number] - CBCD Performed By: #### L 503.6550, L501.9985, L503.6150, L100.0100, L500.4100, L502.0250, L500.4050 ####[facility] [address] [place], [address] Monocytes/100 WBC (Bld) 13.4 % High 0-10 [facility] Comment on above: Order Comment: Order Date: 01/19/24Order Info: [id number] - CBCD Performed By: #### L 503.6550, L501.9985, L503.6150, L100.0100, L500.4100, L502.0250, L500.4050 ####[facility] [address] [place], [address] Neutrophils/100 WBC (Bld) 63.7 % Normal 47-70 [facility] Comment on above: Order Comment: Order Date: 01/19/24Order Info: 0184-1 - CBCD Performed By: #### L 503.6550, L501.9985, L503.6150, L100.0100, L500.4100, L502.0250, L500.4050 ####[facility] [address] [place], [address] Nucleated RBC (Bld) [#/Vol] 0 10*3/uL Normal 0-5 [facility] Comment on above: Order Comment: Order Date: 01/19/24Order Info: [id number] - CBCD Performed By: #### L 503.6550, L501.9985, L503.6150, L100.0100, L500.4100, L502.0250, L500.4050 ####[facility] [address] [place], [address] Platelet mean volume (Bld) [Entitic vol] 10.1 fL Normal 6.2-12.0 [facility] Comment on above: Order Comment: Order Date: 01/19/24Order Info: 0184- - CBCD Performed By: #### L 503.6550, L501.9985, L503.6150, L100.0100, L500.4100, L502.0250, L500.4050 ####[facility] [address] [place], [address] Platelets (Bld) [#/Vol] 236 10*3/uL Normal 150-450 [facility] Comment on above: Order Comment: Order Date: 01/19/24Order Info: [id number] - CBCD Performed By: #### L 503.6550, L501.9985, L503.6150, L100.0100, L500.4100, L502.0250, L500.4050 ####[facility] [address] [place], [address] RBC (Bld) [#/Vol] 4.25 10*6/uL Low 4.6-6.2 [facility] Comment on above: Order Comment: Order Date: 01/19/24Order Info: [id number] - CBCD Performed By: #### L 503.6550, L501.9985, L503.6150, L100.0100, L500.4100, L502.0250, L500.4050 ####[facility] [address] [place], [address] RDW SD 47.2 fl High 35.1-43.9 [facility] Comment on above: Order Comment: Order Date: 01/19/24Order Info: [id number] - CBCD Performed By: #### L 503.6550, L501.9985, L503.6150, L100.0100, L500.4100, L502.0250, L500.4050 ####[facility] [address] [place], [address] WBC (Bld) [#/Vol] 9.5 10*3/uL Normal 4.4-11.0 [facility] Comment on above: Order Comment: Order Date: 01/19/24Order Info: [id number]- - CBCD Performed By: #### L 503.6550, L501.9985, L503.6150, L100.0100, L500.4100, L502.0250, L500.4050 ####[facility] [address] [place], [address] Calculated very low density lipoprotein (VLDL) cholesterol measurementOrdered By: Kishan Ford on 04-17-2024 Calculated very low density lipoprotein (VLDL) cholesterol measurement 46 mg/dL High 5-40 [facility] VLDL Cholesterol 46 mg/dL High 5-40 [facility] Carbon dioxide, total [Moles /volume] in Central venous bloodOrdered By: Kishan Ford on 04-17-2024 CO2 [Moles/Vol] 21.7 mmol/L 21.0-32.0 [facility] Chloride assayOrdered By: Garima Ford on 04-17-2024 Chloride [Moles/Vol] 99 mmol/L 98-108 [facility] Comprehensive Metabolic Prof ilon 04-17-2024 Albumin [Mass/Vol] 4.3 g/dL Normal 3.4-4.8 [facility] Comment on above: Order Comment: Order Date: 01/19/24Order Info: [id number] - CMPOrder Info: - LIPIDOrder Info: [id number] - TIBCOrder Info: [id number] - FEOrder Info: [id number] - SAVANNA Performed By: #### L 503.6550, L501.9985, L503.6150, L100.0100, L500.4100, L502.0250, L500.4050 ####[facility] [address] [place], [address] Albumin/Globulin [Mass ratio] 1.5 {ratio} Normal 0.9-2.4 [facility] Comment on above: Order Comment: Order Date: 01/19/24Order Info: [id number] - CMPOrder Info: - LIPIDOrder Info: [id number] - TIBCOrder Info: [id number] - FEOrder Info: [id number] - SAVANNA Performed By: #### L 503.6550, L501.9985, L503.6150, L100.0100, L500.4100, L502.0250, L500.4050 ####[facility] [address] [place], [address] ALK PHOS 62 U/L Normal 40-129 [facility] Comment on above: Order Comment: Order Date: 01/19/24Order Info: [id number] - CMPOrder Info: [id number] - LIPIDOrder Info: [id number] - TIBCOrder Info: [id number] - FEOrder Info: [id number] - SAVANNA Performed By: #### L 503.6550, L501.9985, L503.6150, L100.0100, L500.4100, L502.0250, L500.4050 ####[facility] [address] [place], [address] ALT [Catalytic activity/Vol] 21 U/L Normal <=46 [facility] Comment on above: Order Comment: Order Date: 01/19/24Order Info: 07 - CMPOrder Info: - LIPIDOrder Info: [id number] - TIBCOrder Info: [id number] - FEOrder Info: [id number] - SAVANNA Performed By: #### L 503.6550, L501.9985, L503.6150, L100.0100, L500.4100, L502.0250, L500.4050 ####[facility] [address] [place], [address] AST [Catalytic activity/Vol] 27 U/L Normal <=37 [facility] Comment on above: Order Comment: Order Date: 01/19/24Order Info: 785- - CMPOrder Info: [id number] - LIPIDOrder Info: [id number] - TIBCOrder Info: [id number] - FEOrder Info: [id number] - SAVANNA Performed By: #### L 503.6550, L501.9985, L503.6150, L100.0100, L500.4100, L502.0250, L500.4050 ####[facility] [address] [place], [address] Bilirubin [Mass/Vol] 0.64 mg/dL Normal 0.00-1.30 [facility] Comment on above: Order Comment: Order Date: 01/19/24Order Info: [id number] - CMPOrder Info: [id number] - LIPIDOrder Info: [id number] - TIBCOrder Info: [id number] - FEOrder Info: [id number] - SAVANNA Performed By: #### L 503.6550, L501.9985, L503.6150, L100.0100, L500.4100, L502.0250, L500.4050 ####[facility] [address] [place], [address] BUN/CRE 19.3 RATIO Normal 10-20 [facility] Comment on above: Order Comment: Order Date: 01/19/24Order Info: 785- - CMPOrder Info: - LIPIDOrder Info: [id number] - TIBCOrder Info: [id number] - FEOrder Info: [id number] - SAVANNA Performed By: #### L 503.6550, L501.9985, L503.6150, L100.0100, L500.4100, L502.0250, L500.4050 ####[facility] [address] [place], [address] Calcium [Mass/Vol] 9.6 mg/dL Normal 7.6-11.0 [facility] Comment on above: Order Comment: Order Date: 01/19/24Order Info: 86-1 - CMPOrder Info: [id number] - LIPIDOrder Info: [id number] - TIBCOrder Info: [id number] - FEOrder Info: [id number] - SAVANNA Performed By: #### L 503.6550, L501.9985, L503.6150, L100.0100, L500.4100, L502.0250, L500.4050 ####[facility] [address] [place], [address] Chloride [Moles/Vol] 99 mmol/L Normal 98-108 [facility] Comment on above: Order Comment: Order Date: 01/19/24Order Info: 785- - CMPOrder Info: - LIPIDOrder Info: [id number] - TIBCOrder Info: [id number] - FEOrder Info: [id number] - SAVANNA Performed By: #### L 503.6550, L501.9985, L503.6150, L100.0100, L500.4100, L502.0250, L500.4050 ####[facility] [address] [place], [address] CO2 [Moles/Vol] 21.7 mmol/L Normal 21.0-32.0 [facility] Comment on above: Order Comment: Order Date: 01/19/24Order Info: 86-1 - CMPOrder Info: [id number] - LIPIDOrder Info: [id number] - TIBCOrder Info: [id number] - FEOrder Info: [id number] - SAVANNA Performed By: #### L 503.6550, L501.9985, L503.6150, L100.0100, L500.4100, L502.0250, L500.4050 ####[facility] [address] [place], [place], [address] Creatinine [Mass/Vol] 1.24 mg/dL High 0.70-1.20 [facility] Comment on above: Order Comment: Order Date: 01/19/24Order Info: 785- - CMPOrder Info: [id number] - LIPIDOrder Info: [id number] - TIBCOrder Info: 2497-05 - FEOrder Info: [id number] - SAVANNA Performed By: #### L 503.6550, L501.9985, L503.6150, L100.0100, L500.4100, L502.0250, L500.4050 ####[facility] [address] [place], [place], [address] GAP 13 Normal 5-15 [facility] Comment on above: Order Comment: Order Date: 01/19/24Order Info: [id number] - CMPOrder Info: - LIPIDOrder Info: [id number] - TIBCOrder Info: [id number] - FEOrder Info: [id number] - SAVANNA Performed By: #### L 503.6550, L501.9985, L503.6150, L100.0100, L500.4100, L502.0250, L500.4050 ####[facility] [address] [place], [place], [address] GFR/1.73 sq M.predicted among non-blacks MDRD (S/P/Bld) [Vol rate/Area] 58 mL/min/{1.73_m2} Low >60 [facility] Comment on above: Order Comment: Order Date: 01/19/24Order Info: 07- - CMPOrder Info: [id number] - LIPIDOrder Info: [id number] - TIBCOrder Info: [id number] - FEOrder Info: [id number] - SAVANNA Result Comment: mL/m in/1.73m2 CKD-EPI Creatinine Equation (2020) Performed By: #### L 503.6550, L501.9985, L503.6150, L100.0100, L500.4100, L502.0250, L500.4050 ####[facility] [address] [place], [address] Globulin (S) [Mass/Vol] 3.0 g/dL Normal 2.2-4.2 [facility] Comment on above: Order Comment: Order Date: 01/19/24Order Info: 785-1 - CMPOrder Info: [id number] - LIPIDOrder Info: [id number] - TIBCOrder Info: [id number] - FEOrder Info: [id number] - SAVANNA Performed By: #### L 503.6550, L501.9985, L503.6150, L100.0100, L500.4100, L502.0250, L500.4050 ####[facility] [address] [place], [address] Glucose [Mass/Vol] 159 mg/dL High 70-99 [facility] Comment on above: Order Comment: Order Date: 01/19/24Order Info: 785- - CMPOrder Info: [id number] - LIPIDOrder Info: [id number] - TIBCOrder Info: [id number] - FEOrder Info: [id number] - SAVANNA Performed By: #### L 503.6550, L501.9985, L503.6150, L100.0100, L500.4100, L502.0250, L500.4050 ####[facility] [address] [place], [address] Potassium [Moles/Vol] 4.4 mmol/L Normal 3.3-5.1 [facility] Comment on above: Order Comment: Order Date: 01/19/24Order Info: 86-1 - CMPOrder Info: [id number] - LIPIDOrder Info: [id number] - TIBCOrder Info: [id number] - FEOrder Info: [id number] - SAVANNA Performed By: #### L 503.6550, L501.9985, L503.6150, L100.0100, L500.4100, L502.0250, L500.4050 ####[facility] [address] [place], [address] Sodium [Moles/Vol] 133 mmol/L Normal 133-145 [facility] Comment on above: Order Comment: Order Date: 01/19/24Order Info: 86-1 - CMPOrder Info: [id number] - LIPIDOrder Info: [id number] - TIBCOrder Info: [id number] - FEOrder Info: [id number] - SAVANNA Performed By: #### L 503.6550, L501.9985, L503.6150, L100.0100, L500.4100, L502.0250, L500.4050 ####[facility] [address] [place], [address] T PROT 7.3 g/dL Normal 5.9-8.4 [facility] Comment on above: Order Comment: Order Date: 01/19/24Order Info: [id number] - CMPOrder Info: - LIPIDOrder Info: [id number] - TIBCOrder Info: [id number] - FEOrder Info: [id number] - SAVANNA Performed By: #### L 503.6550, L501.9985, L503.6150, L100.0100, L500.4100, L502.0250, L500.4050 ####[facility] [address] [place], [address] Urea nitrogen [Mass/Vol] 24 mg/dL High 4-19 [facility] Comment on above: Order Comment: Order Date: 01/19/24Order Info: 86-1 - CMPOrder Info: [id number] - LIPIDOrder Info: [id number] - TIBCOrder Info: [id number] - FEOrder Info: [id number] - SAVANNA Performed By: #### L 503.6550, L501.9985, L503.6150, L100.0100, L500.4100, L502.0250, L500.4050 ####[facility] [address] [place], [place], [id number] Creatinine Unsp time (U) [Ma ss/Vol]Ordered By: Kishan Ford on 04-17-2024 Creatinine (U) [Mass/Vol] 53.80 mg/dL 39-259 [facility] Eosinophil percentageOrdered By: Kishan Ford on 04-17-2024 Eosinophils/100 WBC (Bld) 3.7 % 0-5 [facility] Erythrocyte distribution wid th ratioOrdered By: Kishan Ford on 04-17-2024 Erythrocyte distribution width (RBC) [Ratio] 13.4 % 11.6-14.6 [facility] Erythrocyte distribution wid th standard deviationOrdered By: Kishan Ford on 04-17-2024 Erythrocyte distribution width (RBC) [Entitic vol] 47.2 fL High 35.1-43.9 [facility] Erythrocyte distribution width (RBC) [Ratio] 47.2 fl High 35.1-43.9 [facility] FOLATES,SERUM (FOLIC ACID)on 04-17-2024 FOLATES,SERUM 8.96 ng/mL Normal 4.60-34.80 [facility] Comment on above: Order Comment: N Result Comment: Hemo lysis, Results will be affected, Requires Recollection. Performed By: #### L 503.6080, L503.0106, L506.1001, L506.0200 ####[facility] [address] [place], [place], [address] Ferritinon 04-17-2024 Ferritin [Mass/Vol] 330 ng/mL Normal 37-417 [facility] Comment on above: Order Comment: Order Date: 01/19/24Order Info: [id number] - CMPOrder Info: [id number] - LIPIDOrder Info: [id number] - TIBCOrder Info: [id number] - FEOrder Info: [id number] - SAVANNA Performed By: #### L 503.6550, L501.9985, L503.6150, L100.0100, L500.4100, L502.0250, L500.4050 ####[facility] [address], [address] Folate [Mass/Vol]Ordered By: Kishan Ford on 04-17-2024 Folate 8.96 ng/mL 4.60-34.80 [facility] Comment on above: Hemolysis, Results w ill be affected, Requires Recollection. Folate [Mass/volume] in Seru m or PlasmaOrdered By: Kishan Ford on 04-17-2024 Folate [Mass/Vol] 8.96 ng/mL 4.60-34.80 [facility] Comment on above: Hemolysis, Results w ill be affected, Requires Recollection. GFR/1.73 sq M.predicted vika g non-blacks MDRD (S/P/Bld) [Vol rate/Area]Ordered By: Kishan Ford on 04-17-2024 Estimated GFR (MDRD) Non-Af Amer 58 Low >60 [facility] Comment on above: mL/min/1.73m2 CKD-EP I Creatinine Equation (2020) Glomerular filtration rate ( GFR) estimation/1.73 sq m using serum, plasma, or whole bOrdered By: Kishan Ford on 04-17-2024 GFR/1.73 sq M.predicted among non-blacks MDRD (S/P/Bld) [Vol rate/Area] 58 mL/min/{1.73_m2} Low >60 [facility] Comment on above: mL/min/1.73m2 CKD-EP I Creatinine Equation (2020) Hematocrit Auto (Bld) [Volum e fraction]Ordered By: Kishan Ford on 04-17-2024 Hematocrit (Bld) [Volume fraction] 40.5 % 40-54 [facility] Hemoglobin A1con 04-17-2024 HbA1c (Bld) [Mass fraction] 7.6 % Normal <=5.6 [facility] Comment on above: Order Comment: Order Date: 01/19/24Order Info: [id number] - A1C Performed By: #### L 503.2048, L501.1739, L503.5650, L100.0100, L500.4100, L502.0250, L500.4050 ####[facility] [address] [place], [place], [id number] Hemoglobin A1c percentageOrd ered By: Kishan Ford on 04-17-2024 HbA1c (Bld) [Mass fraction] 7.6 % >5.7 [facility] Hemoglobin measurementOrdere d By: Kishan Ford on 04-17-2024 Hemoglobin (Bld) [Mass/Vol] 13.5 g/dL 13.0-16.5 [facility] Immature granulocytes/100 WB C Auto (Bld)Ordered By: Kishan Ford on 04-17-2024 Immature granulocytes/100 WBC (Bld) 0.600 % 0.0-0.9 [facility] Comment on above: IG% - Immature Granu locytes (promyelocytes, myelocytes and metamyelocytes) > 1% indicates that a LEFT SHIFT is Present. Ironon 04-17-2024 Iron [Mass/Vol] 60 ug/dL Low 65-175 [facility] Comment on above: Order Comment: Order Date: 01/19/24Order Info: [id number] - CMPOrder Info: [id number] - LIPIDOrder Info: [id number] - TIBCOrder Info: [id number] - FEOrder Info: [id number] - SAVANNA Performed By: #### L 503.6550, L501.9985, L503.6150, L100.0100, L500.4100, L502.0250, L500.4050 ####[facility] [address] [place], [place], [address] Iron (Unsp spec) [Mass/Mass] Ordered By: Kishan Ford on 04-17-2024 Iron [Mass/Vol] 60 ug/dL Low 65-175 [facility] Iron measurement (mass/mass) Ordered By: Kishan Ford on 04-17-2024 Iron (Unsp spec) [Mass/Mass] 60 ug/dL Low 65-175 [facility] L503.0106on 04-17-2024 Cobalamin (Vitamin B12) [Mass/Vol] 361 pg/mL Normal 180-914 [facility] Comment on above: Order Comment: Order Date: 01/19/24Order Info: [id number] - CMPOrder Info: [id number] - LIPIDOrder Info: [id number] - TIBCOrder Info: [id number] - FEOrder Info: [id number] - SAVANNA Performed By: #### L 503.6080, L503.0106, L506.1001, L506.0200 ####[facility] [address] [place], [address] L503.6080on 04-17-2024 UIBC 226 ug/dL Low 228-428 [facility] Comment on above: Order Comment: Order Date: 01/19/24Order Info: 785-1 - CMPOrder Info: [id number] - LIPIDOrder Info: [id number] - TIBCOrder Info: [id number] - FEOrder Info: [id number] - SAVANNA Performed By: #### L 503.6080, L503.0106, L506.1001, L506.0200 ####[facility] [address] [place], [address] L506.1001on 04-17-2024 Vitamin D 25-OH 33.2 ng/mL Normal 30-100 [facility] Comment on above: Order Comment: Order Date: 01/19/24Order Info: [id number] - CMPOrder Info: [id number] - LIPIDOrder Info: [id number] - TIBCOrder Info: [id number] - FEOrder Info: 2275- - SAVANNA Result Comment: Yin min D Status Deficiency: <20 ng/mL (50nmol/L) Insufficiency: 20-30 ng/mL (50-75 nmol/L) Sufficiency: 30-100 ng/mL (75-250 nmol/L) Toxicity: >100 ng/mL (>250 nmol/L) Performed By: #### L 503.6080, L503.0106, L506.1001, L506.0200 ####[facility] [address] [place], [address] LDL calc ser/plasOrdered By: Kishan Ford on 04-17-2024 Cholesterol in LDL [Mass/Vol] 46 mg/dL [facility] Comment on above: Aeimvhlzpq=590-489 m g/dL & Higher Pttz=833 mg/dL or greater LDL Cholesterol, Calculated 46 mg/dL [facility] Comment on above: Pffzcsvwes=634-191 m g/dL & Higher Rjtt=873 mg/dL or greater Laboratory - Chemistry and C hemistry - challengeOrdered By: Kishan Ford on 04-17-2024 AST [Catalytic activity/Vol] 27 U/L <38 [facility] Lipid Profileon 04-17-2024 CHOL:HDL 3.60 Normal [facility] Comment on above: Order Comment: Order Date: 01/19/24Order Info: [id number] - CMPOrder Info: [id number] - LIPIDOrder Info: [id number] - TIBCOrder Info: 2497-05 - FEOrder Info: [id number] - SAVANNA Performed By: #### L 503.6550, L501.9985, L503.6150, L100.0100, L500.4100, L502.0250, L500.4050 ####[facility] [address] [place], [place], [phone]) Cholesterol [Mass/Vol] 127 mg/dL Normal <=200 [facility] Comment on above: Order Comment: Order Date: 01/19/24Order Info: [id number] - CMPOrder Info: [id number] - LIPIDOrder Info: [id number] - TIBCOrder Info: 2497-05 - FEOrder Info: [id number] - SAVANNA Result Comment: Chol esterol level, Desirable <200 mg/dL Borderline high cholesterol 200-239 mg/dL High cholesterol >=240 mg/dL Recommendations of the NCEP Adult Treatment Panel for the following risk-cutoff thresholds for the [place] population. Performed By: #### L 503.6550, L501.9985, L503.6150, L100.0100, L500.4100, L502.0250, L500.4050 ####[facility] [address] [place], [address] Cholesterol in HDL [Mass/Vol] 35 mg/dL Low [facility] Comment on above: Order Comment: Order Date: 01/19/24Order Info: [id number] - CMPOrder Info: [id number] - LIPIDOrder Info: [id number] - TIBCOrder Info: 2497-05 - FEOrder Info: 2275-05 - SAVANNA Result Comment: Elizabeth onal Cholesterol Education Program (NCEP) guidelines: <40 mg/dL: Low HDL-cholesterol (major risk factor for CHD) >= 60 mg/dL: High HDL-cholesterol (negative risk factor for CHD) HDL-cholesterol is affected by a number of factors, e.g. smoking, exercise, hormones, sex and age. Performed By: #### L 503.6550, L501.9985, L503.6150, L100.0100, L500.4100, L502.0250, L500.4050 ####[facility] [address] [place], [place], [phone]) Cholesterol in LDL [Mass/Vol] 46 mg/dL Normal [facility] Comment on above: Order Comment: Order Date: 01/19/24Order Info: [id number] - CMPOrder Info: - LIPIDOrder Info: [id number] - TIBCOrder Info: 2497-05 - FEOrder Info: [id number] - SAVANNA Result Comment: Bord isjtnf=135-821 mg/dL Higher Jpfz=876 mg/dL or greater Performed By: #### L 503.6550, L501.9985, L503.6150, L100.0100, L500.4100, L502.0250, L500.4050 ####[facility] [address] [place], [address] Cholesterol in VLDL [Mass/Vol] 46 mg/dL High 5-40 [facility] Comment on above: Order Comment: Order Date: 01/19/24Order Info: [id number] - CMPOrder Info: [id number] - LIPIDOrder Info: [id number] - TIBCOrder Info: 2497-05 - FEOrder Info: [id number] - SAVANNA Performed By: #### L 503.6550, L501.9985, L503.6150, L100.0100, L500.4100, L502.0250, L500.4050 ####[facility] [address] [place], [place], [id number] Triglyceride [Mass/Vol] 230 mg/dL High [facility] Comment on above: Order Comment: Order Date: 01/19/24Order Info: [id number] - CMPOrder Info: [id number] - LIPIDOrder Info: [id number] - TIBCOrder Info: [id number] - FEOrder Info: [id number] - SAVANNA Result Comment: The drugs N-Acetylcysteine and Metamizole may falsely depress this assay. Normal range: <150 mg/dL Borderline High: 150-199 mg/dL High: 200-499 mg/dL Very High: >500 mg/dL Performed By: #### L 503.6550, L501.9985, L503.6150, L100.0100, L500.4100, L502.0250, L500.4050 ####[facility] [address] [place], [place], [address] Lymphocytes Auto (Unsp spec) [#/Vol]Ordered By: Kishan Ford on 04-17-2024 Lymphocytes (Bld) [#/Vol] 1.70 10*3/uL 0.83-4.51 [facility] Lymphocytes/100 WBC Auto (Un sp spec)Ordered By: Kishan Ford on 04-17-2024 Lymphocytes/100 WBC (Bld) 17.8 % Low 19-41 [facility] MCV (mean corpuscular volume ) determinationOrdered By: Kishan Ford on 04-17-2024 MCV (RBC) [Entitic vol] 95.3 fL High 80-94 [facility] Mean corpuscular hemoglobin (MCH) determinationOrdered By: Kishan Ford on 04-17-2024 MCH (RBC) [Entitic mass] 31.8 pg 27.0-32.0 [facility] Mean corpuscular hemoglobin concentration (MCHC) determinationOrdered By: Kishan Ford on 04-17-2024 MCHC (RBC) [Mass/Vol] 33.3 g/dL 32-36 [facility] Mean platelet volume determi nationOrdered By: Kishan Ford on 04-17-2024 Platelet mean volume (Bld) [Entitic vol] 10.1 fL 6.2-12.0 [facility] Microalb:Creat Ratio,Random URon 04-17-2024 Creatinine [Mass/Vol] 53.80 mg/dL Normal 39-259 [facility] Comment on above: Order Comment: Order Date: 01/19/24Order Info: [id number] - MIACRE Performed By: #### L 503.6550, L501.9985, L503.6150, L100.0100, L500.4100, L502.0250, L500.4050 ####[facility] [address] [place], [address] MALB:CREAT UNABLE TO CALCULATE Normal [facility] Comment on above: Order Comment: Order Date: 01/19/24Order Info: [id number] - MIACRE Performed By: #### L 503.6550, L501.9985, L503.6150, L100.0100, L500.4100, L502.0250, L500.4050 ####[facility] [address] [place], [place], [id number] MICROALBUMIN,UR < 12.0 Normal NO RANGE EST. [facility] Comment on above: Order Comment: Order Date: 01/19/24Order Info: [id number] - MIACRE Performed By: #### L 503.6550, L501.9985, L503.6150, L100.0100, L500.4100, L502.0250, L500.4050 ####[facility] [address] [place], [place], [address] Microalbumin/creat ratio urO rdered By: Kishan Ford on 04-17-2024 Urine Microalbumin/Creatinine Ratio UNABLE TO CALCULATE mg/g CRE [facility] Urine microalbumin/creatinine ratio measurement UNABLE TO CALCULATE mg/g CRE [facility] Monocyte percentageOrdered B y: Kishan Ford on 04-17-2024 Monocytes/100 WBC (Bld) 13.4 % High 0-10 [facility] Neutrophil percentageOrdered By: Kishan Ford on 04-17-2024 Neutrophils/100 WBC (Bld) 63.7 % 47-70 [facility] No Panel InformationOrdered By: Kishan Ford on 04-17-2024 Unsaturated Iron Binding Capacity 226 ug/dL Low 228-428 [facility] Nucleated red blood cell per centageOrdered By: Kishan Ford on 04-17-2024 Nucleated RBC/100 WBC (Bld) [Ratio] 0 % 0-5 [facility] Platelet countOrdered By: Garima Ford on 04-17-2024 Platelets (Bld) [#/Vol] 236 10*3/uL 150-450 [facility] Potassium (Unsp spec) [Mass/ Vol]Ordered By: Kishan Ford on 04-17-2024 Potassium [Moles/Vol] 4.4 mmol/L 3.3-5.1 [facility] Potassium measurement (mass/ volume)Ordered By: Kishan Ford on 04-17-2024 Potassium (Unsp spec) [Mass/Vol] 4.4 mmol/L 3.3-5.1 [facility] RBC Auto (Bld) [#/Vol]Ordere d By: Kishan Ford on 04-17-2024 RBC (Bld) [#/Vol] 4.25 10*6/uL Low 4.6-6.2 [facility] Random urine creatinine madeline urement (mass/volume)Ordered By: Kishan Ford on 04-17-2024 Creatinine Unsp time (U) [Mass/Vol] 53.80 mg/dL 39-259 [facility] Screening total cholesterol/ high density lipoprotein (HDL) cholesterol ratioOrdered By: Kishan Ford on 04-17-2024 Cholesterol.total/Choles terol in HDL [Mass ratio] 3.60 {ratio} [facility] Serum creatinine measurement (mass/volume)Ordered By: Kishan Ford on 04-17-2024 Creatinine [Mass/Vol] 1.24 mg/dL High 0.70-1.20 [facility] Serum globulin measurementOr dered By: Kishan Ford on 04-17-2024 Globulin (S) [Mass/Vol] 3.0 g/dL 2.2-4.2 [facility] Serum glucose measurement (m ass/volume)Ordered By: Kishan Ford on 04-17-2024 Glucose [Mass/Vol] 159 mg/dL High 70-99 [facility] Serum or plasma alanine miranda otransferase (ALT) measurementOrdered By: Kishan Ford on 04-17-2024 ALT [Catalytic activity/Vol] 21 U/L <47 [facility] Serum or plasma albumin madeline urement (mass/volume)Ordered By: Kishan Ford on 04-17-2024 Albumin [Mass/Vol] 4.3 g/dL 3.4-4.8 [facility] Serum or plasma albumin/glob ulin mass ratioOrdered By: Kishan Ford on 04-17-2024 Albumin/Globulin [Mass ratio] 1.5 {ratio} 0.9-2.4 [facility] Serum or plasma alkaline sugar sphatase measurementOrdered By: Kishan Ford on 04-17-2024 ALP [Catalytic activity/Vol] 62 U/L 40-129 [facility] Serum or plasma calcium madeline urement (mass/volume)Ordered By: Kishan Ford on 04-17-2024 Calcium [Mass/Vol] 9.6 mg/dL 7.6-11.0 [facility] Serum or plasma cholesterol in HDL measurement (mass/volume)Ordered By: Kishan Ford on 04-17-2024 Cholesterol in HDL [Mass/Vol] 35 mg/dL Low >40 [facility] Comment on above: National Cholesterol Education Program (NCEP) guidelines:<40 mg/dL: Low HDL-cholesterol (major risk factor for CHD)>= 60 mg/dL: High HDL-cholesterol (negative risk factor for CHD)HDL-cholesterol is affected by a number of factors, e.g. smoking, exercise, hormones, sex and age. Serum or plasma cholesterol measurement (mass/volume)Ordered By: Kishan Ford on 04-17-2024 Cholesterol [Mass/Vol] 127 mg/dL <201 [facility] Comment on above: Cholesterol level, D esirable <200 mg/dLBorderline high cholesterol 200-239 mg/dLHigh cholesterol >=240 mg/dLRecommendations of the NCEP Adult Treatment Panel for the following risk-cutoff thresholds for the [place] population. Serum or plasma ferritin parris surement (mass/volume)Ordered By: Kishan Ford on 04-17-2024 Ferritin [Mass/Vol] 330 ng/mL 37-417 [facility] Serum or plasma urea nitroge n measurement (mass/volume)Ordered By: Kishan Ford on 04-17-2024 Urea nitrogen [Mass/Vol] 24 mg/dL High 4-19 [facility] Sodium levelOrdered By: Kishan Ford on 04-17-2024 Sodium [Moles/Vol] 133 mmol/L 133-145 [facility] Total proteinOrdered By: Edison Ford on 04-17-2024 Protein [Mass/Vol] 7.3 g/dL 5.9-8.4 [facility] Triglycerides measurementOrd ered By: Kishan Ford on 04-17-2024 Triglyceride [Mass/Vol] 230 mg/dL High <199 [facility] Comment on above: The drugs N-Acetylcy steine and Metamizole may falsely depress this assay. Normal range: <150 mg/dLBorderline High: 150-199 mg/dLHigh: 200-499 mg/dLVery High: >500 mg/dL Urine albumin measurement wi detection limit of 20 mg/L or less (mass/volume)Ordered By: Kishan Ford on 04-17-2024 Albumin DL <= 20 mg/L (U) [Mass/Vol] < 12.0 mg/L NO RANGE EST. [facility] Vitamin B12 ser/plasOrdered By: Kishan Ford on 04-17-2024 Cobalamin (Vitamin B12) [Mass/Vol] 361 pg/mL 180-914 [facility] Vitamin D, 25-hydroxyOrdered By: Kishan Ford on 04-17-2024 Vitamin D 25-Hydroxy 33.2 ng/mL 30-100 [facility] Comment on above: Vitamin D StatusDefi ciency: <20 ng/mL (50nmol/L)Insufficiency: 20-30 ng/mL (50-75 nmol/L)Sufficiency: 30-100 ng/mL (75-250 nmol/L)Toxicity: >100 ng/mL (>250 nmol/L) White blood cell (WBC) count Ordered By: Kishan Ford on 04-17-2024 WBC (Bld) [#/Vol] 9.5 10*3/uL 4.4-11.0 [facility] Cardiology Visit Reporton Cardiology Visit Report [facility] [address] [place] [address] OFFICE VISIT Date of Service: 03/13/24 MR#: [id number] Acct: [id number] Name: CHAU BARRON Rep #: [id number] : 1940 Provider: JUN frazier Age/Sex: 83/M Location: [facility] Status: Signed HPI HPI History of Present Illness Details: This is an 83-year-old male presents the office today for a cardiovascular outpatient follow-up. He is status post bypass surgery in June 06, 2023 with HERNANDEZ to LAD, SVG to PDA, SVG to ramus, and SVG to diagonal 1. This was complicated by some left lower extremity cellulitis which is since cleared. He also has a past medical history of hypertension, hyperlipidemia, and diabetes mellitus type 2. He acknowledges positional chest tenderness. This is located left side of his chest and worse with palpitation. He denies palpitations or bilateral lower extremity edema. He acknowledges leg discomfort with ambulation. He acknowledges shortness of breath with activity, cough, and wheezing. He denies shortness of breath at rest or orthopnea. He denies lightheadedness, dizziness, near- syncope, or syncope. He acknowledges fatigue and such that he has lower endurance than usual. Intake Vital Signs 10/24/23 13:01 11/07/23 07:24 03/13/24 10:55 Height 6 ft 3 in 6 ft 3 in 6 ft 3 in Weight: 284 lb BMI 35.4 BP 118/69 Blood Pressure Location Lt brachial Position Sitting Respiration 18 Pulse 68 Pulse Source Monitor Temp 98.5 F Temperature Source Oral Pulse Oximetry (%) 92 Oxygen Delivery Method room air Intake Visit Reasons: 3 M [employer]U [employer]anner Required: No Accompanied by: Is patient in pain?: No Allergies No Known Allergies Allergy (Verified 03/13/24 10:58) Medications ???Medication ???Instructions ???Recorded ???Confirmed ???Type aspirin 81 mg tablet,delayed 81 mg PO DAILY@0800 07/15/14 03/13/24 History release atorvastatin 40 mg tablet 40 mg PO QHS 07/15/14 03/13/24 History coenzyme Q10 50 mg capsule (Co 30 mg PO DAILY 07/15/14 03/13/24 History Q-10) metformin 500 mg tablet,extended 500 mg PO BID 07/15/14 03/13/24 History release 24 hr ascorbic acid (vitamin C) 1,000 mg 1 g PO DAILY dietary supplement 06/02/23 03/13/24 History tablet (C-1000) cholecalciferol (vitamin D3) 25 25 mcg PO DAILY dietary supplement 06/02/23 03/13/24 History mcg (1,000 unit) capsule (Vitamin D3) acetaminophen 500 mg capsule 500 mg PO Q6H PRN pain 06/29/23 03/13/24 History metoprolol tartrate 25 mg tablet 25 mg PO BID 06/29/23 03/13/24 History furosemide 40 mg tablet 40 mg PO DAILY PRN if needed for 08/24/23 03/13/24 Rx weight gain of 3 pounds or more #30 TABLETS potassium chloride 20 mEq 20 meq PO DAILY PRN if needed take 08/24/23 03/13/24 Rx tablet,extended release with Furosemide #30 TABLETS calcium carbonate 500 mg PO QDAY 10/24/23 03/13/24 History valsartan 80 mg tablet 80 mg PO QDAY 10/24/23 03/13/24 History dapagliflozin propanediol 10 mg 10 mg PO DAILY 03/13/24 03/13/24 History tablet (Farxiga) ferrous sulfate 325 mg (65 mg 325 mg PO QDAY 03/13/24 03/13/24 History iron) tablet magnesium oxide 400 mg PO QDAY 03/13/24 03/13/24 History zinc citrate, zinc oxide 50 mg 55 mg PO QDAY 03/13/24 03/13/24 History tablet Ejection fraction %: 60 Have you fallen in the past year?: No [facility] Medical History Cellulitis of left lower leg Pericardial cyst History of left heart catheterization Cancer Myocardial infarct Type 2 diabetes mellitus with hyperglycemia History of hypercholesterolemia History of hypertension DM II (diabetes mellitus, type II), controlled Hyperlipidemia HTN (hypertension) Surgical History Hx of CABG History of recent dental procedure Family History Other Heart disease Social History Smoking Status: Never smoker alcohol intake: current substance use type: does not use caffeine: Yes ROS Const Const: Positive for fatigue (low endurance per pt); Negative for weakness, fever(s), headache(s), chills, frequent falls, night sweats, daytime sleepiness, difficulty sleeping or excessive sweating Eyes Eyes: Negative for blind spots, loss of peripheral vision, transient loss of vision, blurry vision, change in vision, double vision, floaters or tunnel vision ENT ENT: Positive for balance problems; Negative for headache(s), dizziness, tinnitus or neck pain Cardio Chest Pain: Yes Character: other (tenderness) Onset: positional and other (palpation) Location: left chest Palpitations: No E (more content not included)... Normal [facility] Progress Noteon 08-11-2023 Progress Note 08/11/23 0936 BPCI Late Drop? Program late drop? No BPCI Outreach Assessment Selection Which outreach assessment are you completing? 60 Day BPCI - 60 Day Outreach Did patient answer phone call? Yes Do you have any concerns with your medication(s)? No Any complications with post discharge services? No Any concerns with your DME equipment? No Any questions about your condition you are unsure about that I can help clarify? No Chart reviewed for BPCI 60 day outreach. Call placed to patient and he tells me that he is doing well. He denies chest pain or S.OB.. He continues to check weight, BP and temperature. Patient denies swelling and states barely any redness in his left lower leg. He denies and fever or chills and has finished his antibiotic. He states he has lasix to take as needed for weight gain or swelling and has not needed it. Patient states he is having visits this afternoon from [facility] SN [facility] PT and expects to be discharged. Patient states cardiac rehab was previously discussed for after he completes PT. He states his appetite is excellent and he is staying hydrated. He states Dr. Stallings, his software project lead in [place], will call to schedule appointment with him when they are ready. Normal [facility] Progress Noteon 07-24-2023 Progress Note [facility] Medical Group: [facility] [address] [facility] [address] Dept: [phone] Dept Loc: [phone] Visit type: Established patient Reason for Visit: Follow-up Assessment and Plan 1. S/P CABG (coronary artery bypass graft) 2. Hypertension, unspecified type 3. Wound cellulitis 06/06/23: Dr. Peterson- CABGx 4 (HERNANDEZ-LAD, SVG-PDA, SVG- RAMUS, SVG-DIAG1), LLE EVH, LLL wedge resection, pericardial cyst resection -Swelling in LLE gone, redness improving. -Incisions healing well. -No pain. -Progressing physically. -Cards appointment coming up. POD#48 Day from Discharge (06/13/23) #41 -Reviewed current meds: Continue current meds. -Surgical Incisions: Per patient-healing appropriately, well approximated, no s/s of infection. -Physical therapy as outlined in discharge instructions.Ok to attend Cardiac Rehab and Ok to drive. -Acute Post-Operative Pain controlled. Patient no longer taking narcotic opioid medication. Tx plan: Over The Counter-Tylenol (acetaminophen) 500 mg 1-2 tablets every 6 hours. No more than 4,000 mg in 24 hour period, Over The Counter-Motrin (ibuprofen) 200-400 mg by mouth every 4-6 hours (or) 600-800mg every 8 hours. No more than 3,200 mg per day, Over The Counter-pain patches (Salon pas) may used as needed next to incision but not directly on your incision, and Ice packs applied for 20 minutes, then off for at least 20 minutes before reapplying. Weight restriction measures 1-4 weeks from date of surgery- 10lbs weight restriction: 5-8 weeks from date of surgery- 20lbs weight restriction: 9-12 weeks from date of surgery-30lbs weight restriction approximate end date: Disposition: Follow up PRN. Patient verbalized understanding of plan and stated they would call if any questions or concerns arise. Treatment Team: PCP: Kishan Ford MD Patient was identified and seen today via Telehealth by agreement and consent. I used the following Telehealth technology: Audio capability only. Total length of call 12 minutes. The patient was offered and advised video for a more comprehensive evaluation, but the patient declined or was unable to use video. Patient location: Patient Location: Home. This patient encounter is appropriate and reasonable under the circumstances: Distance . The patient has been advised of the potential risks and limitations of this mode of treatment (including but not limited to the absence of in-person examination) and has agreed to be treated in a remote fashion in spite of them. Any and all of the patient's/patient's family's questions on this issue have been answered and I have made no promises or guarantees to the patient. The patient has also been advised to contact this office for worsening conditions or problems, and seek emergency medical treatment and/or call 911 if the patient deems either necessary. The patient stated that they are currently in the [facility]. If the patient is a minor, permission has been obtained by the parent or guardian for the patient to receive medical care at this visit. Subjective HPI: 82 y.o. with pmHx of HLD, HTN, T2DM who was transffered from outside hospital for CABG consideration. Per paper chart brought with the patient, he developed midsternal chest pressure, coughing, burping, and sweating while riding his lawnmower. By the time the patient arrived to the ED - chest pressure had slightly improved. Cardiac enzymes were elevated and he was admitted as NSTEMI and Cardiology was consulted. Cardiac cath was then preformed which showed: Distal LM 60-70% stenosis left main bifurcating into LAD, ramus and left circumflex. LAD with ostial and proximal ~70%. Distal LAD around 95%, ostial LCx 70%, RCA large dominant , calcified with proximal RCA thrombus: JIMMY-3 flow in the RCA. He was transferred to [facility] for CABG consideration. Full workup completed at [facility], CT chest revealed lung nodule. Surgery planned for 06/06/23. Patient required low dose pressor support post-op for a couple of days and HFNC. Weaned off of both by POD #3, then began to progress well. Required diuresis. Stayed inpatient to gain strength and be sure would be able to help when he would return home. A lot of time was spent educating both patient and on home going instructions. Patient discharged home on POD #07 with and daughter. 06/25/23: Reports he has a red area on EVH leg that has expanded. He was seen by his PCP who was concerned for infection. Initially started on Doxycycline. The redness continued to expand/move. He was seen again by PCP, given 1g ceftriaxone injection and started on Bactrim on Monday. He denies fever/chills. The redness is about the same from Monday. Denies expanding swelling. Recommended he continue Bactrim and elevate leg when resting. Continue to monitor temperature. He has appt tomorrow with our office. Will be assessed at that (more content not included)... [facility] 36on 07-13-2023 36 Called patient to follow up. Last week had tele-visit, major concern was redness and swelling in LLE that had been progressing. Had been on multiple ABX and IV ABX at [facility]. PCP put on PO zyvox which patient had just started at the time of last conversation. Though the redness and swelling were in the same leg as the EVH sites, did not seem to correlate with incisions. Today, patient states that redness and swelling are much improved. Small amount of swelling remains. He is progressing well physically with Home Health PT. Briefly discussed Cardiac Rehab and will further discuss at future appointment. OK to drive. Reviewed sternal precautions and weight restrictions. Will schedule patient for phone in [address] Surgery[address] Erica Kay, CHRISTIANO - CATHRYN 07/13/23 [facility] Progress Noteon 07-12-2023 Progress Note 07/12/23 1042 BPCI Late Drop? Program late drop? No BPCI Outreach Assessment Selection Which outreach assessment are you completing? 30 Day BPCI - 30 Day Outreach Did patient answer phone call? Yes Since you have been discharged from the facility, what do you feel the status of you condition is? Improving Do you have any concerns with your medication(s)? No Any complications with post discharge services? No Any concerns with your DME equipment? No Any questions about your condition you are unsure about that I can help clarify? No Chart reviewed. Call placed to patient for BPCI 30 day outreach. Patient states he is doing well and denies any chest pain or S.O.B. He checks his weight, BP & temperature daily. Patient states the redness on his left lower leg is much improved and there is a little swelling. He continues to elevate his legs when sitting. Patient denies any fever or chills and states he has about another week left of his antibiotic. He continues to have [facility] for SN/PT. He states after finishing PT, he will start cardiac rehab. Patient states he is no longer taking pain medication. Patient states his appetite is great and he is sleeping well. Patient is aware to call MD with any questions or concerns. Normal [facility] Progress Noteon 07-06-2023 Progress Note [facility]: [facility] [address] [place] [address] Dept: [phone] Dept Loc: [phone] Visit type: Established patient Reason for Visit: Follow-up Assessment and Plan 1. S/P CABG (coronary artery bypass graft) 2. Hypertension, unspecified type 06/06/23: Dr. Peterson- CABGx 4 (HERNANDEZ-LAD, SVG-PDA, SVG- RAMUS, SVG-DIAG1), LLE EVH, LLL wedge resection, pericardial cyst resection -Continue current ABX course. -Will request pictures to document in our charting and assess. -If patient feels necessary, recommend being seen in [facility] but for convenience, he has been going to PCP in [facility]. -Doesn't seem to be related to EVH site, no drainage from site. -Will follow up with patient early next week to check progress. POD#30 Day from Discharge (06/13/23) #23 -Reviewed current meds: Continue current medications, continue ABX. -Surgical Incisions: Per patient-healing appropriately, well approximated, no s/s of infection. -Physical therapy as outlined in discharge instructions.Ok to attend Cardiac Rehab and Ok to drive. -Acute Post-Operative Pain controlled. Patient no longer taking narcotic opioid medication. Tx plan: Over The Counter-Tylenol (acetaminophen) 500 mg 1-2 tablets every 6 hours. No more than 4,000 mg in 24 hour period, Over The Counter-Motrin (ibuprofen) 200-400 mg by mouth every 4-6 hours (or) 600-800mg every 8 hours. No more than 3,200 mg per day, Over The Counter-pain patches (Salon pas) may used as needed next to incision but not directly on your incision, and Ice packs applied for 20 minutes, then off for at least 20 minutes before reapplying. Weight restriction measures 1-4 weeks from date of surgery- 10lbs weight restriction: 5-8 weeks from date of surgery- 20lbs weight restriction: 9-12 weeks from date of surgery-30lbs weight restriction approximate end date: Disposition: Will call patient next week to check up on. Follow up PRN. Patient verbalized understanding of plan and stated they would call if any questions or concerns arise. Treatment Team: PCP: Kishan Ford MD Patient was identified and seen today via Telehealth by agreement and consent. I used the following Telehealth technology: Audio capability only. Total length of call 20 minutes. The patient was offered and advised video for a more comprehensive evaluation, but the patient declined or was unable to use video. Patient location: Patient Location: Home. This patient encounter is appropriate and reasonable under the circumstances: Seen in office recently and distance . The patient has been advised of the potential risks and limitations of this mode of treatment (including but not limited to the absence of in-person examination) and has agreed to be treated in a remote fashion in spite of them. Any and all of the patient's/patient's family's questions on this issue have been answered and I have made no promises or guarantees to the patient. The patient has also been advised to contact this office for worsening conditions orproblems, and seek emergency medical treatment and/or call 911 if the patient deems either necessary. The patient stated that they are currently in the [facility]. If the patient is a minor, permission has been obtained by the parent or guardian for the patient to receive medical care at this visit. Subjective HPI: 82 y.o. with pmHx of HLD, HTN, T2DM who was transffered from outside hospital for CABG consideration. Per paper chart brought with the patient, he developed midsternal chest pressure, coughing, burping, and sweating while riding his lawnmower. By the time the patient arrived to the ED - chest pressure had slightly improved. Cardiac enzymes were elevated and he was admitted as NSTEMI and Cardiology was consulted. Cardiac cath was then preformed which showed: Distal LM 60-70% stenosis left main bifurcating into LAD, ramus and left circumflex. LAD with ostial and proximal ~70%. Distal LAD around 95%, ostial LCx 70%, RCA large dominant , calcified with proximal RCA thrombus: JIMMY-3 flow in the RCA. He was transferred to [facility] for CABG consideration. Full workup completed at [facility], CT chest revealed lung nodule. Surgery planned for 06/06/23. Patient required low dose pressor support post-op for a couple of days and HFNC. Weaned off of both by POD #3, then began to progress well. Required diuresis. Stayed inpatient to gain strength and be sure would be able to help when he would return home. A lot of time was spent educating both patient and on home going instructions. Patient discharged home on POD #07 with and daughter. 06/25/23: Reports he has a red area on EVH leg that has expanded. He was seen by his PCP who was concerned for infection. Initially started on Doxycycline. The redness continued to expand/move. He was seen again by PCP, given 1g ceftriaxone (more content not included)... Normal [facility] Progress Noteon 07-03-2023 Progress Note 07/03/23 0947 BPCI Late Drop? Program late drop? No BPCI - 21 Day Outreach Did patient answer phone call? Yes Have you noticed any negative changes in your condition? Yes (Patient states he is feeling better.) Have you had any issues contacting your provider regarding any concerns? No Do you have any concerns with your medication(s)? No Any complications with post discharge services? No Any concerns with your DME equipment? N/A Are there any additional items you need? No Any questions about your condition you are unsure about that I can help clarify? No Reminded patient about 30 day window to re-admit to SNF/HHC if needed. N/A (:Patient is active with homecare) Chart reviewed. Contacted patient for BPCI 21 day outreach, and he tells me that he was admitted to [facility] from to Monday, 06/28-07/01. He states he was having trouble with infection in his left lower leg at the vein harvesting site. Patient states he received IV antibiotics during his admission and was discharged on an oral antibiotic . He states the redness/swelling in his left leg is improving. He states he doesn't need to take pain medication. Patient states he will be having homecare for SN/PT, but he is not sure which homecare agency will be used. He states he was told his old homecare was being cancelled and new homecare ordered. He states he was told someone from homecare would be calling him. Patient states he will be continuing to take lasix and potassium. Patient states he weighs himself, checks his BP & temperature every day. He is aware to report weight gain of 3 lbs/day or 5 lbs/week, increased S.O.B. or swelling. Patient is aware of his phone appointment with CATHRYN Hudson, CT surgery, and plans to attend. Normal [facility] 36on 06-27-2023 36 [place] from [facility] calls in to report interaction between Bactrim and Metformin (level 3) and Potassium (level 2). Normal [facility] Progress Noteon 06-27-2023 Progress Note 06/27/23 1024 BPCI Late Drop? Program late drop? No BPCI Outreach Assessment Selection Which outreach assessment are you completing? 14 Day BPCI - 14 Day Outreach Did patient answer phone call? Yes Have you experienced any issues, decline or backsliding in your condition? No Did you have any issues with attending your follow up appointment?? No Were any new complications found at your provider appointment? No Did your provider change any of your medication(s) or treatment(s)? Yes (CATHRYN Hudson, CT surgery, prescribed additional 5 days of lasix 40 mg daily & potassium 20 meq daily.) Any complications with scheduling your next appointment with your provider? No Do you feel there are any barriers to you progressing toward your post d/c goals? No Educational and general instructions provided: Medication Adherence;When to call MD;When to return to the ED;S/S infection Are you missing any Post discharge Services? No Any issues with the services provided? No Any concerns with DME equipment? No Are there any additional items you need or questions in your condition that you need clarified? No Have you had any thoughts of returning to the hospital/SNF? No Reminded patient about 30 day window to re-admit to SNF/HHC if needed. (Patient is currently active with [facility].) Chart reviewed. Contacted patient for BPCI 14 day outreach. Patient denies any chest pain and states S.O.B. is improving. Patient states he had appointment yesterday with CATHRYN Hudson T surgery. Patient states Erica removed the steri strips from his sternal incision and it looks good. Patient denies pain at incision. Patient tells me that Erica prescribed an additional 5 days of lasix and potassium. Patient states he has 3 more days of antibiotic to take for the redness on his left lower leg. Patient states he is taking all medications as prescribed. Patient is aware to call MD with any questions or concerns. Patient continues to have [facility] for SN and had a visit this morning. Patient states his appetite is not quite back to baseline, but improving. Patient states yesterday he had 2 appointments, and that he was pretty tuckered out by the time he returned home. He is hoping to do cardiac rehab.Patient is aware of his appointments and plans to attend. Normal [facility] Office Visiton 06-26-2023 Follow-up visit [id number] Irwin Barron 1940 M Date Provider Department Center 06/26/2023 [id number] [employer] [facility] CT None No family history on file Level of Service:61837 AL POSTOP FOLLOW UP VISIT RELATED TO ORIGINAL PX Reason for Visit and Comments: Follow-up [259980] Normal [facility] Progress Noteon 06-26-2023 Progress Note [facility] Medical Group: [facility] [address] [place] [address] Dept: [phone] Dept Loc: [phone] Visit type: Established patient Reason for Visit: Follow-up Assessment and Plan 1. S/P CABG (coronary artery bypass graft) 2. Hypertension, unspecified type 06/06/23: Dr. Peterson- CABGx 4 (HERNANDEZ-LAD, SVG-PDA, SVG- RAMUS, SVG-DIAG1), LLE EVH, LLL wedge resection, pericardial cyst resection -Continue prescribed bactrim for redness on LLE near EVH site. -Lasix and K supplement to help with swelling. -Patient to reach out to CT Surgery and PCP (since more local to them in [place]) if leg redness and swelling does not improve over the course of the next few days with ABX and lasix. -MSI healing well, tape removed, steri strips removed from chest tube sites. -Continue other medications. -Pain tolerable. -Home Health, wants to go to Cardiac Rehab when Home Health signs off. POD#20 Day from Discharge (06/13/23) #13 -Reviewed current meds: Continue current meds. -Surgical Incisions: healing appropriately, well approximated, no s/s of infection. -Physical therapy as outlined in discharge instructions.Not ready for Cardiac Rehab and Not ready to drive. -Acute Post-Operative Pain controlled. Patient no longer taking narcotic opioid medication. Tx plan: Over The Counter-Tylenol (acetaminophen) 500 mg 1-2 tablets every 6 hours. No more than 4,000 mg in 24 hour period, Over The Counter-Motrin (ibuprofen) 200-400 mg by mouth every 4-6 hours (or) 600-800mg every 8 hours. No more than 3,200 mg per day, Over The Counter-pain patches (Salon pas) may used as needed next to incision but not directly on your incision, and Ice packs applied for 20 minutes, then off for at least 20 minutes before reapplying. Weight restriction measures 1-4 weeks from date of surgery- 10lbs weight restriction: 5-8 weeks from date of surgery- 20lbs weight restriction: 9-12 weeks from date of surgery-30lbs weight restriction approximate end date: Disposition: Phone call on 07/06/[address] Surgery and PRN. Follow up with PCP PRN. Schedule appointment with Cardiology in [place]. Patient verbalized understanding of plan and stated they would call if any questions or concerns arise. Treatment Team: PCP: Kishan Ford MD Subjective HPI: 82 y.o. with pmHx of HLD, HTN, T2DM who was transffered from outside hospital for CABG consideration. Per paper chart brought with the patient, he developed midsternal chest pressure, coughing, burping, and sweating while riding his lawnmower. By the time the patient arrived to the ED - chest pressure had slightly improved. Cardiac enzymes were elevated and he was admitted as NSTEMI and Cardiology was consulted. Cardiac cath was then preformed which showed: Distal LM 60-70% stenosis left main bifurcating into LAD, ramus and left circumflex. LAD with ostial and proximal ~70%. Distal LAD around 95%, ostial LCx 70%, RCA large dominant , calcified with proximal RCA thrombus: JIMMY-3 flow in the RCA. He was transferred to [facility] for CABG consideration. Full workup completed at [facility], CT chest revealed lung nodule. Surgery planned for 06/06/23. Patient required low dose pressor support post-op for a couple of days and HFNC. Weaned off of both by POD #3, then began to progress well. Required diuresis. Stayed inpatient to gain strength and be sure would be able to help when he would return home. A lot of time was spent educating both patient and on home going instructions. Patient discharged home on POD #07 with and daughter. 06/25/23: Reports he has a red area on EVH leg that has expanded. He was seen by his PCP who was concerned for infection. Initially started on Doxycycline. The redness continued to expand/move. He was seen again by PCP, given 1g ceftriaxone injection and started on Bactrim on Monday. He denies fever/chills. The redness is about the same from Monday. Denies expanding swelling. Recommended he continue Bactrim and elevate leg when resting. Continue to monitor temperature. He has appt tomorrow with our office. Will be assessed at that time. 06/26/23: Patient presents to office with for post-op follow up. He has been doing well at home, major concern is his LLE, near his most distal EVH site, he has an area of redness. He has bilateral LE edema but L>R. No drainage noted. His PCP has put him on PO bactrim, which he is only a couple days into. Otherwise, he is progressing physically. His pain is controlled. Home Health is following. Review of Systems Constitutional: Positive for fatigue. Negative for chills, diaphoresis and fever. Respiratory: Negative for cough, shortness of breath and wheezing. Cardiovascular: Positive for leg swelling. Negative for palpitations. Gastrointestinal: Negative for abdominal distention, abdominal pain, constipation, diarrhea, nausea and vomiting. Skin: (more content not included)... Normal [facility] 36on 06-25-2023 36 Reports he has a red area on EVH leg that has expanded. He was seen by his PCP who was concerned for infection. Initially started on Doxycycline. The redness continued to expand/move. He was seen again by PCP, given 1g ceftriaxone injection and started on Bactrim on Monday. He denies fever/chills. The redness is about the same from Monday. Denies expanding swelling. Recommended he continue Bactrim and elevate leg when resting. Continue to monitor temperature. He has appt tomorrow with our office. Will be assessed at that time. CHRISTIANO Palacios CNP 06/25/23 [facility] CARECOORDon 06-22-2023 CARECOORD Patient Choice Patient Name: CHAU BARRON Date of : 1940 [facility] Progress Noteon 06-19-2023 Progress Note 06/19/23 1308 BPCI Late Drop? Program late drop? No BPCI Outreach Assessment Selection Which outreach assessment are you completing? 7 Day BPCI - 7 Day Outreach Did patient answer phone call? Yes Have you experienced any issues, decline or backsliding in your condition? No Do you have any question on managing your condition? No Any issues with scheduling your follow up appointment with your provider? No Do you have any issues with Transportation to your appointments? Yes Do you feel there are any barriers to you progressing toward your post d/c goals? No Are you missing any Post discharge Services? No Any issues with the services provided? No Are there any additional items you need or questions in your condition that you need clarified? No Educational and general instructions provided: Medication Adherence;When to call MD;When to return to the ED;Daily weights;Low sodium diet Have you had any thoughts of returning to the hospital/SNF? No Reminded patient about 30 day window to re-admit to SNF/HHC if needed. N/A Chart reviewed. Contacted patient for BPCI 7 day outreach. Patient states he is steadily better. He denies chest pain or S.O.B.. Patient denies redness, drainage or swelling at sternal incision. Patient Patient describes slightly pink discoloration on left lower leg, midway between his ankle and knee, and spouse states it is unrelated to the vein harvesting sites. Patient states he is weighing himself daily and reports 2 lb weight fluctuation. Patient is aware to call MD with weight gain of 3 lbs/day or 5 lbs/week. Patient states he is taking his medications as prescribed. Patient reports AB SN visited on Monday. Patient states he is sleeping better and his appetite is good. Patient is aware of his appointments and plans to attend. [facility] Progress Noteon 06-15-2023 Progress Note 06/15/23 1153 BPCI Late Drop? Program late drop? No BPCI Outreach Assessment Selection Which outreach assessment are you completing? 72 Hour BPCI - 72 Hour Outreach Did patient answer phone call? Yes Now that you have had a couple of days to adjust at home, have you experienced any issues or backsliding in your condition? No Do you have any questions about your discharge instructions from your physician/nurse? (i.e. When you weigh yourself, checking blood sugar, blood pressures, diet) No Any issues with scheduling your follow up appointment with your provider? No Do you have any issues with Transportation to your appointments? Yes Are you missing any services that were planned at the time of hospital discharge? No Do you have any questions or concerns related to these services? No Are you missing any equipment that was planned post discharge? No Do you have any questions or concerns related to the equipment? No Have you had any issues obtaining all of your medications post-Discharge? No Do you have any questions or concerns related to these medications? No Educational and general instructions provided: Medication Adherence;When to call MD;When to return to the ED;Daily weights;S/S infection Are there any additional items you need? No Are there any questions you have for me? No Reminded patient about 30 day window to re-admit to SNF/HHC if needed. N/A (Patient having AB for SN/PT.) Chart reviewed. Contacted patient for BPCI 72 hour outreach. Patient states he is doing well and is very grateful for the care received at [facility]. Patient denies chest pain or S.O.B. Patient states he and his carefully read thru his discharge instructions and he denies any questions. 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 Medications reviewed and patient denies questions. Patient states he has been weighing himself daily and is aware to call MD with weight gain of 3 lbs/day or 5 lbs/week. Patient is aware to bring his weight log to his 1st post op appointment. Patient states he has been using his IS 10 times/day, educated patient that his goal should be 10 times/hour, and patient states understanding. Patient is expecting AB LEONE to visit this afternoon. Patient is aware of his appointments and plans to attend. Normal [facility] BASIC METABOLIC PANELon 04-3 0-2023 Anion gap [Moles/Vol] 13 mmol/L Normal 3-13 [facility] Comment on above: Performed By: #### L AB54 #### Corduroy Cutting Supervisor: LUCINA FERRERA ([phone]) [facility]) [address] [place] [address] Calcium [Mass/Vol] 9.1 mg/dL Normal 8.4-10.4 [facility] Comment on above: Performed By: #### L AB54 #### Corduroy Cutting Supervisor: LUCINA FERRERA ([phone]) [facility]) [address] [place] [address] Chloride [Moles/Vol] 99 mmol/L Normal 98-107 [facility] Comment on above: Performed By: #### L AB54 #### Corduroy Cutting Supervisor: LUCINA FERRERA ([phone]) [facility]) [address] [place] [address] [place] CO2 [Moles/Vol] 24 mmol/L Normal 22-30 [facility] Comment on above: Performed By: #### L AB54 #### [employer] Cutting Supervisor: LUCINA [id number]) [facility]) [address] [place] [address] Creatinine [Mass/Vol] 1.05 mg/dL Normal 0.66-1.25 [facility] Comment on above: Performed By: #### L AB54 #### Corduroy Cutting Supervisor: LUCINA [id number]) [facility] [address] [place] [address] [place] GLOMERULAR FILTRATION RATE ML/MIN/1.73 SQ M.PREDICTED 70.9 mL/min/1.73m*2 Normal >60.0 [facility] Comment on above: Result Comment: Calc ulation based on the Chronic Kidney Disease Epidemiology Collaboration (CKD-EPI) equation refit without adjustment for race Performed By: #### L AB54 #### Corduroy Cutting Supervisor: LUCINA FERRERA ([phone]) [facility] [address] [place] [address] Glucose [Mass/Vol] 137 mg/dL High 70-100 [facility] Comment on above: Performed By: #### L AB54 #### Corduroy Cutting Supervisor: LUCINA FERRERA ([phone]) [facility] ([facility]) [address] [place] [address] Potassium [Moles/Vol] 4.0 mmol/L Normal 3.5-5.1 [facility] Comment on above: Performed By: #### L AB54 #### Corduroy Cutting Supervisor: LUCINA FERRERA ([phone]) [facility] [address] [place] [address] [place] Sodium [Moles/Vol] 136 mmol/L Normal 135-145 [facility] Comment on above: Performed By: #### L AB54 #### Corduroy Cutting Supervisor: LUCINA FERRERA ([phone]) [facility] [address] [place] [address] [place] Urea nitrogen [Mass/Vol] 41 mg/dL High 9-20 [facility] Comment on above: Performed By: #### L AB54 #### [employer]duroy Cutting Supervisor: LUCINA FERRERA ([phone]) [facility] ([facility]) [address] [place] [address] Basic metabolic 1998 panelon 06-13-2023 Anion gap [Moles/Vol] 13 mmol/L 3 - 13 mmol/L [facility] Calcium [Mass/Vol] 9.1 mg/dL 8.4 - 10. 4 mg/dL [facility] Chloride [Moles/Vol] 99 mmol/L 98 - 10 7 mmol/L [facility] CO2 [Moles/Vol] 24 mmol/L 22 - 30 mmol/L [facility] [employer] Creatinine [Mass/Vol] 1.05 mg/dL 0.66 - 1.25 mg/dL [facility] GFR/1.73 sq M.predicted MDRD (S/P/Bld) [Vol rate/Area] 70.9 mL/min/{1.73_m2} - PINF [facility] Glucose [Mass/Vol] 137 mg/dL High 70 - 100 mg/dL [facility] Interpretation and review of laboratory results Abnormal [facility] Potassium [Moles/Vol] 4.0 mmol/L 3.5 - 5.1 mmol/L [facility] Sodium [Moles/Vol] 136 mmol/L 135 - 145 mmol/L [facility] Urea nitrogen [Mass/Vol] 41 mg/dL High 9 - 20 mg/dL [facility] CARECOORDon 06-13-2023 [facility] Site of Care Admission Date: 06/02/2023 05:32 PM Patient Name: CHAU BARRON Location: [address] [id number] A Date of : 1940 ---- Placement Information ---- Referral Type:Home Health Care Services - New Referral ID:[id number] Provider Name:[facility] Address 2: City:[place] Selection Factors:Patient/Family Choice State:[place] Normal [facility] CBC (HEMOGRAM)on 06-13-2023 Erythrocyte distribution width (RBC) [Ratio] 13.9 % Normal 11.5-15.0 [facility] Comment on above: Performed By: #### L AB54 #### [employer]duroy Cutting Supervisor: LUCINA FERRERA ([phone]) [address] Hematocrit (Bld) [Volume fraction] 31.1 % Low 40.0-52.0 [facility] Comment on above: Performed By: #### L AB54 #### [employer] Supervisor: LUCINA FERRERA ([phone]) [address] Hemoglobin (Bld) [Mass/Vol] 10.4 g/dL Low 13.0-18.0 [facility] Comment on above: Performed By: #### L AB54 #### [employer] Cutting Supervisor: LUCINA FERRERA ([phone]) [address] MCH (RBC) [Entitic mass] 31.2 pg Normal 26.0-34.0 [facility] Comment on above: Performed By: #### L AB54 #### [employer]duroy Cutting Supervisor: LUCINA FERRERA ([phone]) [facility]) [address] [place] [address] MCHC 33.4 % Normal 30.5-36.0 [facility] Comment on above: Performed By: #### L AB54 #### [employer] Cutting Supervisor: LUCINA FERRERA ([phone]) [facility] ([facility]) [address] [place] [address] MCV (RBC) [Entitic vol] 93.4 fL Normal 77.0-99.0 [facility] Comment on above: Performed By: #### L AB54 #### [employer] Cutting Supervisor: LUCINA FERRERA ([phone]) [facility] ([facility]) [address] [place] [address] Platelet mean volume (Bld) [Entitic vol] 9.6 fL Normal 9.0-12.7 [facility] Comment on above: Performed By: #### L AB54 #### [employer] Cutting Supervisor: LUCINA FERRERA ([phone]) [facility] ([facility]) [address] [place] [address] Platelets (Bld) [#/Vol] 325 10*3/uL Normal 140-440 [facility] Comment on above: Performed By: #### L AB54 #### [employer] Supervisor: LUCINA FERRERA ([phone]) [facility] ([facility]) [address] [place] [address] RBC (Bld) [#/Vol] 3.33 10*6/uL Low 4.40-5.90 [facility] Comment on above: Performed By: #### L AB54 #### [employer]roy Cutting Supervisor: LUCINA FERRERA ([phone]) [facility] ([facility]) [address] [place] [address] WBC (Bld) [#/Vol] 14.4 10*3/uL High 3.6-10.7 [facility] Comment on above: Performed By: #### L AB54 #### [employer] Supervisor: LUCINA FERRERA ([phone]) [facility]) [address] [place] [address] CBC panel Auto (Bld)Ordered By: Alex Ellis on 06-13-2023 Erythrocyte distribution width (RBC) [Ratio] 13.9 % 11.5 - 15.0 % [facility] Hematocrit (Bld) [Volume fraction] 31.1 % Low 40.0 - 52.0 % [facility] Hemoglobin (Bld) [Mass/Vol] 10.4 g/dL Low 13.0 - 18.0 g/dL [facility] Interpretation and review of laboratory results Abnormal [facility] MCH (RBC) [Entitic mass] 31.2 pg 26. 0 - 34.0 pg [facility] MCHC (RBC) [Mass/Vol] 33.4 % 30.5 - 36.0 % [facility] MCV (RBC) [Entitic vol] 93.4 fL 77.0 - 99.0 fL [facility] Platelet mean volume (Bld) [Entitic vol] 9.6 fL 9.0 - 12.7 fL [facility] Platelets (Bld) [#/Vol] 325 10*3/uL 140 - 440 10*3/uL [facility] RBC (Bld) [#/Vol] 3.33 10*6/uL Low 4.40 - 5.9 0 10*6/uL [facility] WBC (Bld) [#/Vol] 14.4 10*3/uL High 3.6 - 10.7 10*3/uL [facility] Laboratory - Chemistry and C hemistry - challengeon 06-13-2023 Glucose [Mass/Vol] 167 mg/dL High 70 - 100 mg/dL [facility] Glucose [Mass/Vol] 147 mg/dL High 70 - 100 mg/dL [facility] Magnesium [Mass/Vol] 2.2 mg/dL 1.6 - 2 .3 mg/dL [facility] MAGNESIUMon 06-13-2023 Magnesium [Mass/Vol] 2.2 mg/dL Normal 1.6-2.3 [facility] Comment on above: Performed By: #### L AB54 #### [employer] Cut[employer] Supervisor: LUCINA FERRERA ([phone]) [facility] ([facility]) [address] [place] [address] Magnesium [Mass/Vol]on 06-12 Interpretation and review of laboratory results Normal [facility] No Panel Informationon 06-12 Interpretation and review of laboratory results Abnormal [facility] Interpretation and review of laboratory results Abnormal [facility] Radiology Study [facility]ative[facility] Progress Noteon 06-13-2023 Progress Note [facility] at [facility] time. Pt taken out of unit with RN in . Pt VSS at time of DC. Pt leaves with family who are present during DC instructions. Pt pacer wires cut prior to DC from unit. Pt verbalized understanding of DC information. Normal [facility] Progress Note PHYSICAL THERAPY [facility] Treatment Note Name/MRN: Chau Barron ([id number]) Date of : 1940 Age: 82 y.o. Room/Bed: T1-116/T1-116 A Discharge Recommendation: Home with assist PRN, Home with Home health PT Equipment Needed: No Prior Level of Function ADL Assistance: Independent Ambulation Assistance: Independent Transfer Assistance: Independent Assessment Patient completed all transfers, SBA, with little cueing for move in the tube precautions, especially from sit to stand. Patient amb 200', CGA, with one standing rest break, Sp02 95%, cued for deep breathing. Patient performed stair negotiation, CGA, nonreciprocal stepping. Patient performed P&C exercises, and I.S, with splinted cough- weak, unproductive. Patient performed unproductive cough throughout session. Need to assess bed mobility before discharged. Recommend home with assist and Home Health at discharge. Subjective Patient found in chair, agreeable and pleasant for therapy. Patient able to self direct through P&C exercises. Patient reports walking to get coffee twice this morning. Encouraged patient to increase time for walking program. Patient recalls precautions. Patient left in chair. Pain: Pt denies any current pain. Medical Precautions: No active isolations Proper PPE donned/doffed in accordance with facility standards. Fall Risk: Oswald Fall Risk Score: 35 (Medium Risk) Precautions/Restrictio ns: Sternal Precautions: No Pushing, No Pulling, No Lifting Greater Than 10 lbs Lines/Tubes/Drains: Tele Overall Cognitive Status: WNL Overall Orientation Status: Oriented x4 Family/Caregiver Present: none Objective Ambulation Ambulation 1 Assistive device(s) used: none Assist level: Contact Guard Distance (ft): 200' x 1, one standing rest break Quality of gait: uneven step length, wide MARCELO, slow marcie Slight waddling gait due to R knee limited ROM. Patient had on LOB to R, able to self correct. Educated patient on increasing time for walking program. Transfers/Mobility Sit to stand: SBA Stand to sit: SBA Required minimal cueing for move in the tube. Device(s) used: none Exercises Exercises Upper Extremity: P&C ex's #1-9 x 10 reps, good ROM, increased time to complete exercises Comments: I.S x 10 reps- 1500mL, cued for splinted cough- weak, unproductive Stairs Stairs 1 Assistive device(s) used: none Assist level: Contact Guard # of steps: 4 Rails: left Additional factors: non-reciprocal going up, non-reciprocal going down, increased time to complete Balance: Good immediate standing balance, Plan Continue acute PT per plan of care. Safety/Education Safety Safety Devices in place: call light within reach, left in chair, and no alarms engaged upon entry Restraints: No Education Gait training, transfer training, Stair Negotiation, Energy Conservation, P&C exercises Outcome Measures AM-PAC AM-PAC Inpatient Mobility Raw Score : 20 AM-PAC Inpatient Mobility Raw Score (No Stairs) : 17 JH-HLM -HLM Score: Walked 25 ft or more (i.e. walked outside of room) Goals Patient Stated Goal: To have less pain, go home Encounter Problems Encounter Problems (Active) Cardiac Patient will perform bed mobility with CGA in order to improve independence and prepare for out of bed mobility. (Not Addressed) Start: 06/07/23 Expected End: 06/21/23 Patient will complete sit to stand transfer with CGA to none in order to improve safety and prepare for out of bed mobility. (Completed) Start: 06/07/23 Expected End: 06/21/23 Resolved: 06/13/23 Patient will ambulate 600 feet or ambulate 5 minutes with supervision with RPE of 14 or lower. (Progressing) Start: 06/07/23 Expected End: 06/21/23 Patient will ascend and descend 4 # stairs with supervision rail for balance only. (Adequate for Discharge) Start: 06/07/23 Expected End: 06/21/23 Patient will be independent with P&C exercises. (Adequate for Discharge) Start: 06/07/23 Expected End: 06/21/23 Patient will be independent with managing secretions and home walking program. (Adequate for Discharge) Start: 06/07/23 Expected End: 06/21/23 Pain - Adult Therapy Time Individual Co-treatment Time In 0920 Time Out 0943 Minutes 23 Timed Code Treatment Minutes: 23 Minutes (gait, TP) Martina Ortez, DOMENICAA Renay Strong, HOLLIS Normal [facility] XR CHEST 1 VIEWon 06-13-2023 XR CHEST 1 VIEW [facility] 1940 [id number] Exam Date/Time: 06/13/2023 05:25 Procedure: XR CHEST 1 VIEW Ordering Provider: KAY KYLE Reason For Exam: Shortness of breath EXAMINATION: XR chest AP. EXAM DATE AND TIME: 06/13/2023 5:25 AM EDT INDICATION: Shortness of breath ADDITIONAL INFORMATION: 82-year-old male with shortness of breath presents for evaluation COMPARISON: Chest x-ray dated 06/12/2023 TECHNIQUE: Frontal view of the chest was obtained. FINDINGS: Lines/support devices: Cardiac leads project over the chest, somewhat limiting evaluation. Cardiomediastinal silhouette: The heart is enlarged. The patient is status post median sternotomy. Lungs/pleura: Small bilateral pleural effusions are seen with patchy consolidation near the lung bases. No evidence of pneumothorax. Osseous structures: Degenerative changes of the spine and shoulders are seen. No acute osseous abnormality is demonstrated. Other findings: None. IMPRESSION: Small bilateral pleural effusions with patchy consolidation near the lung bases. Differential diagnosis includes superimposed consolidation versus atelectatic change. Report Dictated on Electronically Signed By: Enmanuel Davila MD Electronically Signed Date/Time: 06/13/2023 7:04 AM EDT Normal [facility] XR Chest Single viewon 06-12 [facility] Radiology Study observation (narrative) [facility] XR Chest Single viewOrdered By: Enmanuel Davila on 06-13-2023 [facility] Work Phone: BASIC METABOLIC PANELon - Anion gap [Moles/Vol] 12 mmol/L Normal 3-13 [facility] Comment on above: Performed By: #### L AB54 #### Corduroy Cutting Supervisor: LUCINA FERRERA ([phone]) [facility] [address] [place] [address] Calcium [Mass/Vol] 8.8 mg/dL Normal 8.4-10.4 [facility] Comment on above: Performed By: #### L AB54 #### [employer] Cut[employer] Supervisor: LUCINA FERRERA ([phone]) [facility] [address] [place] [address] [place] Chloride [Moles/Vol] 101 mmol/L Normal 98-107 [facility] Comment on above: Performed By: #### L AB54 #### [employer] Cut[employer] Supervisor: LUCINA FERRERA ([phone]) [facility] [address] [place] [address] [place] CO2 [Moles/Vol] 21 mmol/L Low 22-30 [facility] Comment on above: Performed By: #### L AB54 #### [employer] Supervisor: LUCINA FERRERA ([phone]) [facility] [address] [place] [address] [place] Creatinine [Mass/Vol] 1.11 mg/dL Normal 0.66-1.25 [facility] Comment on above: Performed By: #### L AB54 #### [employer] Supervisor: LUCINA FERRERA ([phone]) [facility] [address] [place] [address] [place] GLOMERULAR FILTRATION RATE ML/MIN/1.73 SQ M.PREDICTED 66.3 mL/min/1.73m*2 Normal >60.0 [facility] Comment on above: Result Comment: Calc ulation based on the Chronic Kidney Disease Epidemiology Collaboration (CKD-EPI) equation refit without adjustment for race ORDER COMMENTS: Slightly Hemolyzed. Interpret K+ with caution. Performed By: #### L AB54 #### [employer] Supervisor: LUCINA FERRERA ([phone]) [facility] [address] [place] [address] [place] Glucose [Mass/Vol] 202 mg/dL High 70-100 [facility] Comment on above: Performed By: #### L AB54 #### [employer] Cut[employer] Supervisor: LUCINA FERRERA ([phone]) [facility] ([facility]) [address] [place] [address] Potassium [Moles/Vol] 3.9 mmol/L Normal 3.5-5.1 [facility] Comment on above: Performed By: #### L AB54 #### [employer] Supervisor: LUCINA FERRERA ([phone]) [facility] ([facility]) [address] [place] [address] Sodium [Moles/Vol] 135 mmol/L Normal 135-145 [facility] Comment on above: Performed By: #### L AB54 #### [employer] Supervisor: LUCINA FERRERA ([phone]) [facility] ([facility]) [address] [place] [address] Urea nitrogen [Mass/Vol] 42 mg/dL High 9-20 [facility] Comment on above: Performed By: #### L AB54 #### [employer] Supervisor: LUCINA FERRERA ([phone]) [facility] [address] [place] [address] Basic metabolic 1998 panelon 06-12-2023 Anion gap [Moles/Vol] 12 mmol/L 3 - 13 mmol/L [facility] Calcium [Mass/Vol] 8.8 mg/dL 8.4 - 10. 4 mg/dL [facility] Chloride [Moles/Vol] 101 mmol/L 98 - 10 7 mmol/L [facility] CO2 [Moles/Vol] 21 mmol/L Low 22 - 30 mmol/L [facility] Creatinine [Mass/Vol] 1.11 mg/dL 0.66 - 1.25 mg/dL [facility] GFR/1.73 sq M.predicted MDRD (S/P/Bld) [Vol rate/Area] 66.3 mL/min/{1.73_m2} - PINF [facility] Glucose [Mass/Vol] 202 mg/dL High 70 - 100 mg/dL [facility] Interpretation and review of laboratory results Abnormal [facility] Potassium [Moles/Vol] 3.9 mmol/L 3.5 - 5.1 mmol/L [facility] Sodium [Moles/Vol] 135 mmol/L 135 - 145 mmol/L [facility] Urea nitrogen [Mass/Vol] 42 mg/dL High 9 - 20 mg/dL [facility] CBC (HEMOGRAM)on 06-12-2023 Erythrocyte distribution width (RBC) [Ratio] 13.8 % Normal 11.5-15.0 [facility] Comment on above: Performed By: #### L AB54 #### Cor[employer] Cutting Supervisor: LUCINA FERRERA ([phone]) [facility]) [address] [place] [address] Hematocrit (Bld) [Volume fraction] 27.9 % Low 40.0-52.0 [facility] Comment on above: Performed By: #### L AB54 #### [employer] Supervisor: LUCINA FERRERA ([phone]) [address] Hemoglobin (Bld) [Mass/Vol] 9.2 g/dL Low 13.0-18.0 [facility] Comment on above: Performed By: #### L AB54 #### [employer] Cut[employer] Supervisor: LUCINA FERRERA ([phone]) [facility]) [address] [place] [address] MCH (RBC) [Entitic mass] 30.8 pg Normal 26.0-34.0 [facility] Comment on above: Performed By: #### L AB54 #### [employer] Cutting Supervisor: LUCINA FERRERA ([phone]) [facility]) [address] [place] [address] MCHC 33.0 % Normal 30.5-36.0 [facility] Comment on above: Performed By: #### L AB54 #### [employer] Cut[employer] Supervisor: LUCINA FERRERA ([phone]) [address] MCV (RBC) [Entitic vol] 93.3 fL Normal 77.0-99.0 S [facility] Comment on above: Performed By: #### L AB54 #### [employer] Cutting Supervisor: LUCINA [phone]) [facility]) [address] [place] [address] Platelet mean volume (Bld) [Entitic vol] 10.2 fL Normal 9.0-12.7 [facility] Comment on above: Performed By: #### L AB54 #### [employer] Cutting Supervisor: LUCINA FERRERA ([phone]) [facility]) [address] [place] [address] Platelets (Bld) [#/Vol] 241 10*3/uL Normal 140-440 [facility] Comment on above: Performed By: #### L AB54 #### [employer] Cutting Supervisor: LUCINA FERRERA ([phone]) [facility]) [address] [place] [address] RBC (Bld) [#/Vol] 2.99 10*6/uL Low 4.40-5.90 [facility] Comment on above: Performed By: #### L AB54 #### [employer]roy Cutting Supervisor: LUCINA FERRERA ([phone]) [facility] ([facility]) [address] [place] [address] WBC (Bld) [#/Vol] 11.4 10*3/uL High 3.6-10.7 [facility] Comment on above: Performed By: #### L AB54 #### [employer] Cutting Supervisor: LUCINA FERRERA ([phone]) [facility]) [address] [place] [address] CBC panel Auto (Bld)on 06-11 Erythrocyte distribution width (RBC) [Ratio] 13.8 % 11.5 - 15.0 % [facility] Hematocrit (Bld) [Volume fraction] 27.9 % Low 40.0 - 52.0 % [facility] Hemoglobin (Bld) [Mass/Vol] 9.2 g/dL Low 13.0 - 18.0 g/dL [facility] Interpretation and review of laboratory results Abnormal [facility] MCH (RBC) [Entitic mass] 30.8 pg 26. 0 - 34.0 pg [facility] MCHC (RBC) [Mass/Vol] 33.0 % 30.5 - 36.0 % [facility] MCV (RBC) [Entitic vol] 93.3 fL 77.0 - 99.0 fL [facility] Platelet mean volume (Bld) [Entitic vol] 10.2 fL 9.0 - 12.7 fL [facility] Platelets (Bld) [#/Vol] 241 10*3/uL 140 - 440 10*3/uL [facility] RBC (Bld) [#/Vol] 2.99 10*6/uL Low 4.40 - 5.9 0 10*6/uL [facility] WBC (Bld) [#/Vol] 11.4 10*3/uL High 3.6 - 10.7 10*3/uL [facility] Laboratory - Chemistry and C hemistry - challengeon 06-12-2023 Glucose [Mass/Vol] 153 mg/dL High 70 - 100 mg/dL [facility] Glucose [Mass/Vol] 129 mg/dL High 70 - 100 mg/dL [facility] Magnesium [Mass/Vol] 2.2 mg/dL 1.6 - 2 .3 mg/dL [facility] MAGNESIUMon 06-12-2023 Magnesium [Mass/Vol] 2.2 mg/dL Normal 1.6-2.3 [facility] Comment on above: Result Comment: AZAR Unger COMMENTS: Slightly Hemolyzed. Interpret Magnesium with caution. Performed By: #### L AB54 #### [employer]duroy Cutting Supervisor: LUCINA FERRERA ([phone]) [address] Magnesium [Mass/Vol]on 06-11 Interpretation and review of laboratory results Normal [facility] No Panel Informationon 06-11 Interpretation and review of laboratory results Abnormal [facility] Interpretation and review of laboratory results Abnormal [facility] Radiology Study observation (narrative) [facility] Radiology Study observation (narrative) [facility] No Panel InformationOrdered By: Rito Poe on 06-12-2023 Case Report [facility] Work Phone: Clinical Information p5ondJDwVJEuoBYqRWR wNV guihJlQGFzlPTmR5Malird DWrjKG4yQN4goXlafAPnlR UiAOMzFaZdd9wly010yOIh d5piRUXIUNfiUGUIXSh5gH adS66bg7H7WnffS02wrRJr RGS3SAYePZGwgHGeEYDzEF V2KPVivODjN9cmCWUqHE5l bckwSMwuYHeuRCSwtZK9BN QsbFPpS7PjEMKkDNakGLXr ome9EpJfOy5ahKAkkRirWQ xwYXJkXHBsYWluXGZzMjAg FQEgXZPrx1HqAXSipOveHJ dwYOY6GMLwb7Lkf6Icr7Wq mdB0gNPjSCZfqc5eROE6IU EzpVGisJR7dGFnx2R3YTGt B6enUDRqGFZ4z3IcemilYY S0NsLwJTQOb1ytlEReqPHe cAzoo76csjzvlu0hvZpzQA BSOTEuMVxwYXJ9 [facility] [employer] Work Phone: Disclaimer a4mtpDFqSKKvnWMbAiTo MD UfVGDzf0jqORTcuMJpLdWy MzNcZnRuYmpcdWMxXGRlZm Acm1iqi071kPOfl6jcNDGk OhR2pGLsUCPtU96dEQWPB6 99TRPwSDdug6zvu3TmNREw jIDkx2B1GGERTVvqKGSESH i5kWnmG92jt8U3EmbnD8uv MGLiIBEaK9AqXM4iBHNkQh b8KCJ8KPM3LUToQDTiL3Ew RZ0qPDYjmSYcYSr1d5qczD ikSQWzZCY9c0gkHPbhauCw WD4hfa2edGj0r0zmvxGwCB CsKPItbOXIJOLpY4ZptTny Xd8zzRi7rDodRbupBCT3Ak w9SI0gwt64ioj9yWgjKVEf frakUdR5TFjsICNsqpnaNA q2TAheYJOovLX8CGTkcUZy Z0KjKRPnWT2imjk1MEB2TJ xoBGQkHdO8QAAivAFgELFm rUneIXnwn199DFB8OhSpXK 5wH6Nci5V2oI6jwFGoEQKw xHFvIsMxVJXznk4apRYyMQ nsd3FmZON8lcU4yAXvnYDw SEQvLG43Nmfgd4QoLqsqNX P2TRLebvRcv5Adr6kmLnKo juHxN0ecE2OwYVYvOFRzGN QtXrYanyEwk7Ogo5KfjDPn bDu0r1rsVDKxBAEshTyog0 mtQOS0UDXnE6O5vQVde5dj KElhGFQimYJ2jqL8CIJimZ CnN3UbpL7ySWBdSN0psuv6 i2ndZDJ8SVjgVIFxPgF2or M5LLGroCQrWSMtrAbyAUbm m262ATK8UpMaQOVyr6UbU0 XveInxH19yzBasR59gBXLc xOdmhZ8vxHayiZ8mZrGpJz MyNFxxbFxwbGFpblxmMVxm nwE0FOyiipcwILXlHPrjI0 ujXyQyWLExeYudUNxko7Tv QMNdGAFqXHFeWYmuS0nkaM 8ymmugQLujVOHcuNdma5co OyYprMG8NA5owlDwCOWoqH hbueJ0zzSxlIuzfZ5piY6q gXugdH9nyBGvfSE8alivXY luIHNpdHUgaHlicmlkaXph vOnzfirsyV5gIBL2vESwDX E9nIPdRBCtMVLbHLVhtL57 ke8plATqoeCyP6XnJ1AylQ ShkWccQmumbFChnUQxMh4p pCPgPC9mZEJhuOHyO5ZcEQ 4gXHBhclxwYXIgVGhlIHVz NDGySnBmbnWlv0RfpT4nSD YhJFShEL98wbJwupI3rITv YWJvdmUgdGVzdHMgaXMgcm VndWxhdGVkIGFzIGFuIGFu XXw4oFWdp6EfD3onrGNbhf AjT2QwjKGeHLRYVU8dXYqd f5TxrRMgzCWac6AsEORcBG OjoE1xDRGeAW7iFDBrCKlo YOPfiiFwpk8fmwHgSVSnTW BfZ0CrakcaeGdivbZsZJEz nm9mzjOrJZD7OOQmCGMrhC vunOJttZPxBMYeqqJ0g8Ai KAYvg6KgX6RihHUnJITqyK UfFZA8a8XmgV6jVJndsYMr FROjNB0rhVYbCQBjZVLgJK FyZWQgYnkgdGhlIFVTIEZv w8IfXE0bQNAhpFbkVMOncJ 8um0VjAZWry92fVCCLSLaa IFRoZSBGREEgaGFzIGRldG VybWluZWQgdGhhdCBzdWNo HEIhIIYrUI8jTUUpliBkqU Orp6PbqVWtbwOww8FxfdUl GETdNYQ7DlPcyAQaHUPwaq HVfOiqlS5nzI9yl0AgxX4i IMeqwdXqlXEkMu0utHCgNL 9uIHBhcmFmZmluIGVtYmVk PCThVLDtb9I8XD8xEEPxqf 0kkbxbbUMyhE2aqJVmdsLs CW6pFK2gL2L3qXYkCSEiok Mkk7msMOg4qQFtOQWujPTj tHVgWblzLPL4OKZbXCN5sy DvhjGePIIwzEmwaUI5oPBm BHCcBVLiIWMlLU22U6Gxt6 GbW4fdBS81MEUyMPRmOYPd bsXvn5brNIHwg3ibWYHdzC KfS1ZeMCTooTPggwpvDnPn WSP0QEPpHLO7iYOdZHJaP8 MhxQMglQXxcG87OB4pkEI8 LX8zPFP2FOssmH8uMqECiN 48bb1thSM9c3PbUH3jH6Fe CWVys7A1fnYlBYBcRA9jeU BiZWVuIHZhbGlkYXRlZCBv ibZuEEQhwGGvJkqzBZZ9xV UjxRQuZtHOLYM4pDBrQXXf v6KsPQYkRIOtgwFebgLhEX UeTCL6oGFrFMHepTVof42j A1x2SS3rgAtkTZPpyXPjST Thj3ConIQyiMz3fPJmUjOt SXcjWRFqITaalIg7wEW7TH 7kNYMyC8QvZ1qiyNEiJNPe BPJppBSwaz9ugZDblQ== [facility] Work Phone: Gross Description i7wawRXeJYWfnHSfAKJk NV mmqgYfYAQxsSJdS7Ehzzwj PPybFD3aFS7tnIjswHTieO PhTQXiYuFnt4hvk885tWZo g7mjJRTCXPvvADGSVUc5dS vaZ93un9J4InjgP19nxESa MDU4QSHvHQKzkUFoYAVxPL Q3QQPaxEBmH9wiFNCyOC5e ntowWJnmBGpgRTPklXG3CY FkoXDaG6KyACDoMVlxIAWj rwe1DsWgFy8ydBFjkZphPV xwYXJkXHBsYWluXGZzMjAg CP3odSLkNBNpM5NldmYgIO jqUNRzcq7oyHuaLFirNdNl WNKlARRpIEI8ILugh7FoRT awNiWnm5WiW9RvPHejEDSv j6BtK2Stv0JvT8foTN2oeD hhdCBtZWFzdXJlcyAyLjUg gBLeQHpgRJ45SXWuNeJgLY hlIHNwZWNpbWVuIGlzIGEg s1X0BPNyGBYhXCAfUUDlKT H6wZZmCIUzSrM4fMJxb8se CBZreEG4HRSiXHTpFBpdun NwBSkbfFwkNAFfl5zwu9Jz e7CbwRyquy7mYNwkWIIxDB DkHW83JFYjo0UavKtbGAYt ZWNpbWVuIHRoZXJlIGlzIG ByRAYhCDDdg0BnsAvtsLUg xEAtmROaWSFeuxxyf3tqL6 pmpPFet1ZtAQKwBW67BGsk VA25WXRwQqDyNIXxcLDcm8 IvWIUtZN38KVKsDKNgf90k dFsoXWX8ZRYtOZJitM6zLk GtMXcmATDqFXDrt6BmeWtf dXJhbCBwdWNrZXJpbmcgaG CzPOLvTU8hfJ4gXNWupF2h Sfk7EG8iUBDjKUKsOZXoX2 Lfh64wlOFsH6mmZQfantTw MXKkKDems8WjNCouCAAoCT QnRtXpS7M6VXN4zvBiK0Od QHFxrvUhnCMwXW0qZyijCE H1wNw1HCRvb5toHCPeo4Q2 bGUgdGhhdCBtZWFzdXJlcy AwLjggeCAwLjYgeCAwLjUg O10oTMBSyLZmjdZyRnP6qG huYxW3wIBzuMqwlALpvTBr dXJmYWNlLiAgSXQgbWVhc3 KoAZNpJJ0tZMJvMTJmc95s qRnjEHAiz7SwkDbkxmErFL UarP0kJOHXtZLsd2MxP4iw YB5raWIoAB94dWTdvWqar1 VeyHf8xNGwQKJxkNfpHBt8 XDtzCONazWNyTOAhBOI5VA UtCFEgsbPbToMrnNM3aTOu c0OvyQcdSCfbfaUvh8y4bD WwZXAeTQH1ZROoLZCuTNKo V20nwERjedwhUyR7vPEhtd 9kdWxlLlxwYXJccGFyIEIu XHRhYiBSZWNlaXZlZCBpbi Ymw3IfKCeukxUdOKVlkFYp ICAicGVyaWNhcmRpYWwgY3 lzdCIgaXMgYSBmcmFnbWVu nCTzZtHuqN0aSDJqxmQ6rb Brc0o9N9LvyVLqiLHxl4Lk AYZak2C4EMA8sDZ4RK0yJV S7ahOwGHFbFGL8VHTeOhN3 HCHlLeCjsJ4wAOZyTQZsxD NycR1njtYtbnRrbkKwovRh pVFahLRlpTR9AGUcxW1iFB HjwX0dnBDdK5Okn6P8dFHp IFxwYXJ9 [facility] Phone: Pathologist Interpretation Location [facility], [address] [place] [id number], CLIA: [id number]; Joint Commission: [id number] [id number]; CAP: [id number] [facility] [employer] Phone: Pathology report final diagnosis Narrative a1vdgAAjKDAtdDRkLDIkZM auisVfRAUsmNHwA3Kdexqc QBnrXN2xZV2tkGvifCEjhJ WfDBNrVlZom4vse231xCKf s4paNXKQHHtqHFFHMIn4nJ jgI43wr7W0UxxlM40wwUVu GTX2TSFmVONpwHIpSZJfEH Q2ZIOaoAFfZ4yyWDJkGF1c lfjbFAvmNIwpBYKfuHI1RU BprXQkD8IbXSCwSJbnWQHv njr1GhAlVh2agTBvbCvzTS xwYXJkXHBsYWluXGZzMjAg MA2nSDgEYqceGHwBQhNmXD 7GNMRuMR3RANuzP6WQL7Nj YcLFHILCGY4PTMAcGBUopV ZPH0WPEP8ZYV3FMOuRErfe T7pJMDRLQKQEA0PMPkxHZy BHUkFOVUxPTUFccGFyXHBh mcKJm07qOR47OaWWX4rsXN Kkc0RzXM0kBKB8gsbqoQEz lCMdyzFsFXBvAE8kK5O2gF ZlLlxwYXJccGFyIEIuICAi YYIONCTOXrBZHOcqM6tLEU GkNA6cVSQlDNTITiwQPu8N TLSMCNUIPwneUJHTR6NAHO aVGJmlINbGXXOzU4nIGDer KXTgvCZsRAEinQ8vqjL8GR kklDQgw2kqx5MqB4ifrDob TBjby6TacY9hJXBqACHvHA Igp0ArLAXnm17naDypGPPm GHJvfFZrMSMgEZE3zDKnab RkkNj4vcUuzePcZLKqVf2n wD90ffqavFTxJOIsdSTwfL tioO7mBY6bYVPxGUGsl9w6 nXXhVOHjoXTzg7A6mPWsBF 3oDM3gj907iMZogRFwHPji hvqtD2vxSFLtR6KuXDUoAE KpgQWus0CqbUl6ZGtix2Cm jP0fhDu5VOPnGmQmYHPvmW qmuLqvqZBgxU7nabkhgXSw UQAJAi4yLSWlTVXplTRuBT zdfEs6ZKcjXSZjBMDqz0Hm PGPuzppgidWco1vufC3mrE KplyJnvTRuWZEmgy2IYYLj YX1pCAUdJR8pG1J9oXVhQL [employer]= [employer]™ Work Phone: [employer]™ Work Phone: Progress Noteon 06-12-2023 Progress Note PHYSICAL THERAPY [facility] Treatment Note Name/MRN: Chau Barron ([id number]) Date of : 1940 Age: 82 y.o. Room/Bed: T1-116/T1-116 A Discharge Recommendation: Home with Home health PT, Home with assist PRN Equipment Needed: No Prior Level of Function ADL Assistance: Independent Ambulation Assistance: Independent Transfer Assistance: Independent Assessment Patient completed all P&C exercises with minimal cueing for increased trunk rotation. Patient performed all transfers, SBA, with cues for move in the tube. Patient able to increase amb distance, 150', CGA, patient not fully flexing or extending R knee during gait cycle, states this was his baseline. Patient required multiple standing rest breaks at nurses station, and one seated break before stair trial. Patient performed stair negotiation, CGA with cues for deep breathing. Patient's Sp02 checked throughout session. Patient required increased time and cues for completion of all tasks. Subjective Patient agreeable and pleasant for therapy. Patient states I am so happy with the progress I am making. Patient states being worrisome for around 50 stairs in house when homegoing. Patient's Sp02 at 93% before session, nurse ok for amb without oxygen, levels dropped to 90%, with cues for deep breathing. Sp02 remained stable during stair trial. Patient left in recliner. Pain: Pt denies any current pain. Medical Precautions: No active isolations Proper PPE donned/doffed in accordance with facility standards. Fall Risk: Oswald Fall Risk Score: 45 (High Risk) Precautions/Restrictio ns: Sternal Precautions: No Pushing, No Pulling, No Lifting Greater Than 10 lbs, Move in the Tube Overall Cognitive Status: WNL Overall Orientation Status: Oriented x4 Family/Caregiver Present: none Objective Ambulation Ambulation 1 Assistive device(s) used: none Assist level: Contact Guard Distance (ft): 150' x 1 with multiple standing rest breaks and one seated break before stair trial Quality of gait: wide MARCELO, slow marcie, R knee limited in flexion and extension demoing slight waddling gait Maybe trial cane for increased stability to increase distance Transfers/Mobility Sit to stand: SBA Stand to sit: SBA Patient performed multiple STS transfers with cues for move in the tube. Device(s) used: none Exercises Exercises Upper Extremity: P&C ex's #1-9 x 10 reps, good ROM, increased time to complete exercises Comments: I.S x 10 reps- 1000mL, cued for splinted cough- weak, unproductive Stairs Stairs 1 Assistive device(s) used: none Assist level: Contact Guard # of steps: 8 Rails: bilateral Additional factors: reciprocal going up, non-reciprocal going down, increased time to complete Balance: Good standing balance, able to perform ADLs and perform trunk rotation. Plan Continue acute PT per plan of care. Safety/Education Safety Safety Devices in place: call light within reach, left in chair, nurse notified, and no alarms engaged upon entry Restraints: No Education Gait training, Transfer Training, P&C exercises, I.S training, Stair Negotiation. Outcome Measures AM-PAC AM-PAC Inpatient Mobility Raw Score : 20 AM-PAC Inpatient Mobility Raw Score (No Stairs) : 17 JH-HLM -HLM Score: Walked 25 ft or more (i.e. walked outside of room) Goals Patient Stated Goal: To have less pain, go home Encounter Problems Encounter Problems (Active) Cardiac Patient will perform bed mobility with CGA in order to improve independence and prepare for out of bed mobility. (Not Addressed) Start: 06/07/23 Expected End: 06/21/23 Patient will complete sit to stand transfer with CGA to [facility] in order to improve safety and prepare for out of bed mobility. (Adequate for Discharge) Start: 06/07/23 Expected End: 06/21/23 Patient will ambulate 600 feet or ambulate 5 minutes with supervision with RPE of 14 or lower. (Progressing) Start: 06/07/23 Expected End: 06/21/23 Patient will ascend and descend 4 # stairs with supervision rail for balance only. (Progressing) Start: 06/07/23 Expected End: 06/21/23 Patient will be independent with P&C exercises. (Adequate for Discharge) Start: 06/07/23 Expected End: 06/21/23 Patient will be independent with managing secretions and home walking program. (Progressing) Start: 06/07/23 Expected End: 06/21/23 Pain - Adult Therapy Time Individual Co-treatment Time In 1100 Time Out 1135 Minutes 35 Timed Code Treatment Minutes: 35 Minutes (gait, TP) TRACIE Dudley, HOLLIS [facility] XR CHEST 1 VIEWon 06-12-2023 XR CHEST 1 VIEW Patient Name: CHAU SWIFT : 1940 Exam Date/Time: 06/12/2023 05:42 Procedure: XR CHEST 1 VIEW Ordering Provider: KAY KYLE Reason For Exam: Shortness of breath CHEST CLINICAL INDICATION: Dyspnea TECHNIQUE: AP portable chest COMPARISON: Radiograph from yesterday IMPRESSION: FINDINGS AND IMPRESSION: SUPPORT DEVICES: EKG leads OSSEOUS STRUCTURES: Degenerative changes in the thoracic spine. HEART AND MEDIASTINUM: The cardiomediastinal silhouette appears unchanged from the prior exam, including prior median sternotomy. LUNGS AND PLEURA: Bibasilar opacities, similar to the prior study. Small bilateral pleural effusions. Report Dictated on Electronically Signed By: Jerson Blackburn MD Electronically Signed Date/Time: 06/12/2023 8:17 AM EDT Normal [facility] XR Chest Single viewon 06-11 [facility] BASIC METABOLIC PANELon 05-15 Anion gap [Moles/Vol] 9 mmol/L Normal 3-13 [facility] Comment on above: Performed By: #### L [id number] #### [employer] Supervisor: LUCINA FERRERA ([phone]) [address] Calcium [Mass/Vol] 8.4 mg/dL Normal 8.4-10.4 [facility] Comment on above: Performed By: #### L AB54 #### [employer] Supervisor: LUCINA FERRERA ([phone]) [facility] ([facility]) [address] [place] [address] Chloride [Moles/Vol] 102 mmol/L Normal 98-107 [facility] Comment on above: Performed By: #### L AB54 #### [employer] Supervisor: LUCINA [phone]) [facility]) [address] [place] [address] CO2 [Moles/Vol] 25 mmol/L Normal 22-30 [facility] Comment on above: Performed By: #### L AB54 #### [employer] Supervisor: LUCINA [phone]) [facility] [address] [place] [address] Creatinine [Mass/Vol] 1.24 mg/dL Normal 0.66-1.25 [facility] Comment on above: Performed By: #### L AB54 #### [employer] Supervisor: LUCINA FERRERA ([phone]) [facility] [address] [place] [address] GLOMERULAR FILTRATION RATE ML/MIN/1.73 SQ M.PREDICTED 58.0 mL/min/1.73m*2 Low >60.0 [facility] Comment on above: Result Comment: Calc ulation based on the Chronic Kidney Disease Epidemiology Collaboration (CKD-EPI) equation refit without adjustment for race Performed By: #### L AB54 #### [employer] Supervisor: LUCINA FERRERA ([phone]) [facility] [address] [place] [address] Glucose [Mass/Vol] 146 mg/dL High 70-100 [facility] Comment on above: Performed By: #### L AB54 #### [employer] Supervisor: LUCINA FERRERA ([phone]) [facility] ([facility] [facility] [address] [place] [address] Potassium [Moles/Vol] 3.7 mmol/L Normal 3.5-5.1 [facility] Comment on above: Performed By: #### L [id number] #### Corduroy Cutting Supervisor: LUCINA FERRERA ([phone]) [facility] ([facility] [address] [place] [address] [place] Sodium [Moles/Vol] 136 mmol/L Normal 135-145 [facility] Comment on above: Performed By: #### L AB54 #### [employer] Supervisor: LUCINA FERRERA ([phone]) [facility] [address] [place] [address] [place] Urea nitrogen [Mass/Vol] 45 mg/dL High 9-20 [facility] Comment on above: Performed By: #### L AB54 #### [employer] Supervisor: LUCINA FERRERA ([phone]) [facility] [address] [place] [address] Basic metabolic 1998 panelon 06-11-2023 Anion gap [Moles/Vol] 9 mmol/L 3 - 13 mmol/L [facility] Calcium [Mass/Vol] 8.4 mg/dL 8.4 - 10. 4 mg/dL [facility] Chloride [Moles/Vol] 102 mmol/L 98 - 10 7 mmol/L [facility] CO2 [Moles/Vol] 25 mmol/L 22 - 30 mmol/L [facility] Creatinine [Mass/Vol] 1.24 mg/dL 0.66 - 1.25 mg/dL [facility] GFR/1.73 sq M.predicted MDRD (S/P/Bld) [Vol rate/Area] 58.0 mL/min/{1.73_m2} Low - PINF [facility] th Glucose [Mass/Vol] 146 mg/dL High 70 - 100 mg/dL [facility] Interpretation and review of laboratory results Abnormal [facility] Potassium [Moles/Vol] 3.7 mmol/L 3.5 - 5.1 mmol/L [facility] Sodium [Moles/Vol] 136 mmol/L 135 - 145 mmol/L [facility] Urea nitrogen [Mass/Vol] 45 mg/dL High 9 - 20 mg/dL [facility] CBC (HEMOGRAM)on 06-11-2023 Erythrocyte distribution width (RBC) [Ratio] 13.9 % Normal 11.5-15.0 [facility] Comment on above: Performed By: #### L AB54 #### [employer] Supervisor: LUCINA FERRERA ([phone]) [facility] [address] [place] [address] Hematocrit (Bld) [Volume fraction] 27.7 % Low 40.0-52.0 [facility] Comment on above: Performed By: #### L AB54 #### [employer] Cut[employer] Supervisor: LUCINA FERRERA ([phone]) [facility] ([facility]) [address] [place] [address] Hemoglobin (Bld) [Mass/Vol] 9.3 g/dL Low 13.0-18.0 [facility] Comment on above: Performed By: #### L AB54 #### [employer] Supervisor: LUCINA [phone]) [facility] [address] [place] [address] MCH (RBC) [Entitic mass] 31.2 pg Normal 26.0-34.0 [facility] Comment on above: Performed By: #### L AB54 #### [employer] Supervisor: LUCINA FERRERA ([phone]) [facility] [address] [place] [address] MCHC 33.6 % Normal 30.5-36.0 [facility] Comment on above: Performed By: #### L AB54 #### [employer] Supervisor: LUCINA FERRERA ([phone]) [facility] ([facility]) [address] [place] [address] MCV (RBC) [Entitic vol] 93.0 fL Normal 77.0-99.0 S [facility] Comment on above: Performed By: #### L AB54 #### [employer] Supervisor: LUCINA FERRERA ([phone]) [facility] [address] [place] [address] Platelet mean volume (Bld) [Entitic vol] 10.1 fL Normal 9.0-12.7 [facility] Comment on above: Performed By: #### L AB54 #### [employer] Supervisor: LUCINA FERRERA ([phone]) [facility] [address] [place] [address] Platelets (Bld) [#/Vol] 208 10*3/uL Normal 140-440 [facility] Comment on above: Performed By: #### L AB54 #### [employer] Supervisor: LUCINA FERRERA ([phone]) [facility] [address] [place] [address] RBC (Bld) [#/Vol] 2.98 10*6/uL Low 4.40-5.90 [facility] Comment on above: Performed By: #### L AB54 #### [employer] Supervisor: LUCINA FERRERA ([phone]) [facility] [address] [place] [address] [place] WBC (Bld) [#/Vol] 11.6 10*3/uL High 3.6-10.7 [facility] Comment on above: Performed By: #### L AB54 #### [employer] Supervisor: LUCINA FERRERA ([phone]) [facility] ([facility]) [address] [place] [address] CBC panel Auto (Bld)on 06-10 Erythrocyte distribution width (RBC) [Ratio] 13.9 % 11.5 - 15.0 % [facility] Hematocrit (Bld) [Volume fraction] 27.7 % Low 40.0 - 52.0 % [facility] Hemoglobin (Bld) [Mass/Vol] 9.3 g/dL Low 13.0 - 18.0 g/dL [facility] Interpretation and review of laboratory results Abnormal [facility] MCH (RBC) [Entitic mass] 31.2 pg 26. 0 - 34.0 pg [facility] MCHC (RBC) [Mass/Vol] 33.6 % 30.5 - 36.0 % [facility] MCV (RBC) [Entitic vol] 93.0 fL 77.0 - 99.0 fL [facility] Platelet mean volume (Bld) [Entitic vol] 10.1 fL 9.0 - 12.7 fL [facility] Platelets (Bld) [#/Vol] 208 10*3/uL 140 - 440 10*3/uL [facility] RBC (Bld) [#/Vol] 2.98 10*6/uL Low 4.40 - 5.9 0 10*6/uL [facility] WBC (Bld) [#/Vol] 11.6 10*3/uL High 3.6 - 10.7 10*3/uL [facility] Laboratory - Chemistry and C hemistry - challengeon 06-11-2023 Glucose [Mass/Vol] 188 mg/dL High 70 - 100 mg/dL [facility] Glucose [Mass/Vol] 130 mg/dL High 70 - 100 mg/dL [facility] Magnesium [Mass/Vol] 2.3 mg/dL 1.6 - 2 .3 mg/dL [facility] MAGNESIUMon 06-11-2023 Magnesium [Mass/Vol] 2.3 mg/dL Normal 1.6-2.3 [facility] Comment on above: Performed By: #### L AB54 #### [employer] Supervisor: LUCINA FERRERA ([phone]) [facility] ([facility]) [address] [place] [address] [place] Magnesium [Mass/Vol]on 06-10 Interpretation and review of laboratory results Normal [facility] No Panel Informationon 06-10 Interpretation and review of laboratory results Abnormal [facility] Interpretation and review of laboratory results Abnormal [facility] Radiology Study observation (narrative) [facility] Radiology Study observation (narrative) [facility] Progress Noteon 06-11-2023 Progress Note PHYSICAL THERAPY [facility] Treatment Note Name/MRN: Chau Barron ([id number]) Date of : 1940 Age: 82 y.o. Room/Bed: T1-116/T1-116 A Discharge Recommendation: Home with Home health PT, Home with assist PRN Equipment Needed: (TBD) Prior Level of Function ADL Assistance: Independent Ambulation Assistance: Independent Transfer Assistance: Independent Assessment Transfers with Supervision. Recall of sternal precautions. Gait training with assistance to manage oxygen and directional cues as well as verbal cues for breathing through nasal canula. Patient became fatigued frequently during ambulation and required rest breaks either standing with upper extremity support or in a chair. Stair training with single handrail and CGA with assistance to manage O2. Recommend home with home health PT and assist PRN at discharge. Subjective Patient seated in chair and agreeable to therapy. Pain: RN managing pain. Medical Precautions: No active isolations Proper PPE donned/doffed in accordance with facility standards. Fall Risk: Oswald Fall Risk Score: 45 (High Risk) Precautions/Restrictio ns: Sternal Precautions: No Pushing, No Pulling, No Lifting Greater Than 10 lbs Overall Cognitive Status: WFL Overall Orientation Status: Oriented x4 Family/Caregiver Present: none Objective Ambulation Ambulation 1 Assistive device(s) used: none, oxygen Assist level: SBA Distance (ft): 60 Quality of gait: No gait deviations, slow marcie Stairs Stairs 1 Assistive device(s) used: none and oxygen Assist level: Contact Guard # of steps: 4 Rails: left Additional factors: increased time to complete Plan Continue acute PT per plan of care. Safety/Education Safety Safety Devices in place: left in chair and nurse notified Restraints: No Education Education Given To: patient Education Provided: Gait Training, Benefits of Increasing Activity, and Breathing Techniques Education Method: Verbal and Demonstration Barriers to Learning: None Education Outcome: Verbalized Understanding and Demonstrated Understanding Outcome Measures AM-PAC AM-PAC Inpatient Mobility Raw Score : 20 AM-PAC Inpatient Mobility Raw Score (No Stairs) : 17 JH-HLM JH-HLM Score: Walked 25 ft or more (i.e. walked outside of room) Goals Patient Stated Goal: To have less pain, go home Encounter Problems Encounter Problems (Active) Cardiac Patient will perform bed mobility with CGA in order to improve independence and prepare for out of bed mobility. (Not Addressed) Start: 06/07/23 Expected End: 06/21/23 Patient will complete sit to stand transfer with CGA to none in order to improve safety and prepare for out of bed mobility. (Progressing) Start: 06/07/23 Expected End: 06/21/23 Patient will ambulate 600 feet or ambulate 5 minutes with supervision with RPE of 14 or lower. (Progressing) Start: 06/07/23 Expected End: 06/21/23 Patient will ascend and descend 4 # stairs with supervision rail for balance only. (Progressing) Start: 06/07/23 Expected End: 06/21/23 Patient will be independent with P&C exercises. (Not Addressed) Start: 06/07/23 Expected End: 06/21/23 Patient will be independent with managing secretions and home walking program. (Progressing) Start: 06/07/23 Expected End: 06/21/23 Pain - Adult Therapy Time Individual Co-treatment Time In 1108 Time Out 1133 Minutes 25 Timed Code Treatment Minutes: 25 Minutes (Gt x2) Lisa Dillard PTA [facility] Progress Note -- Attestation signed by Ying Mcintosh DO at 06/11/2023 3:09 PM I personally saw and evaluated the patient on 06/11/23. I reviewed and agree with the BELKIS?s documentation. I provided a substantive portion of the care of this patient. I personally performed the exam and MDM for this encounter as follows Assessment: mvCAD/NSTEMI now s/p CABGx4 (POD 5) Left lower lobe nodule s/p left lower lobe wedge resection Pericardial cyst s/p pericardial cyst resection Post op pulmonary management: expected post op course Acute post op blood loss anemia EDMUNDO Mild to moderate aortic stenosis HTN/HLD DM2 with hyperglycemia (A1c 7.5) Plan: -cont supplemental 02 via NC, wean as able. Encourage pulm toilet, IS/acapella, progressive mobility. Cont lasix 40 mg IV BID. Attempt to get more accurate Is/Os -cont ASA, statin, BB (dose increased today) -PT/OT, current recs are home with assist prn -tele status Cardiothoracic Surgery/CCM Progress Note PATIENT NAME: Chau Barron DATE: 06/11/23 HPI: 82 y.o. with pmHx of HLD, HTN, T2DM who was transffered from outside hospital for CABG consideration. Per paper chart brought with the patient, he developed midsternal chest pressure, coughing, burping, and sweating while riding his lawnmower. By the time the patient arrived to the ED - chest pressure had slightly improved. Cardiac enzymes were elevated and he was admitted as NSTEMI and Cardiology was consulted. Cardiac cath was then preformed which showed: Distal LM 60-70% stenosis left main bifurcating into LAD, ramus and left circumflex. LAD with ostial and proximal ~70%. Distal LAD around 95%, ostial LCx 70%, RCA large dominant , calcified with proximal RCA thrombus: JIMMY-3 flow in the RCA. He was transferred to [facility] for CABG consideration. Full workup completed at [facility], CT chest revealed lung nodule. Surgery planned for 06/06/23. Surgery/Procedure: 06/06/23: Dr. Peterson- CABGx 4 (HERNANDEZ-LAD, SVG-PDA, SVG- RAMUS, SVG-DIAG1), LLE EVH, LLL wedge resection, pericardial cyst resection Interval History: 06/11/23, POD# 5: VSS, Afebrile, on 1L NC. NSR on tele. Continues to get SOB when ambulating. Discussed increasing ambulation and needing a few more days of PT before being ready for discharge. CXR wet, continue with diuresis. Cr- 1.24, stable Review of Systems Constitutional: Positive for activity change and fatigue. Negative for appetite change, diaphoresis and fever. Respiratory: Positive for shortness of breath. Negative for cough and wheezing. Cardiovascular: Positive for leg swelling. Negative for chest pain and palpitations. Gastrointestinal: Negative for abdominal distention, nausea and vomiting. Skin: Negative for color change, pallor and rash. Objective: Last BM Date: 06/09/23 Vitals: BP: 106/78, MAP (mmHg): 87, BP Method: Automatic Heart Rate: 80 Resp: 18 Temp: 36.9 ?C (98.4 ?F), Temp Source: Temporal BMI (Calculated): 34.64 CXR: BMP: Recent Labs 06/09/23 0306 06/10/23 0433 06/11/23 0110 NA 130* 134* 136 K 4.2 4.2 3.7 CL 100 102 102 CO2 23 25 25 BUN 34* 42* 45* CREATININE 1.11 1.25 1.24 CALCIUM 8.6 8.5 8.4 MG 2.4* 2.4* 2.3 CBC: Recent Labs 06/09/23 0306 06/10/23 0433 06/11/23 0110 WBC 13.6* 13.1* 11.6* HGB 9.2* 9.6* 9.3* HCT 27.4* 28.6* 27.7* PLT 139* 187 208 MCV 94.2 92.6 93.0 RDW 13.9 14.1 13.9 INR: No results for input(s): INR in the last 72 hours. Physical Exam Cardiovascular: Rate and Rhythm: Normal rate and regular rhythm. Heart sounds: Normal heart sounds. No murmur heard. No friction rub. Pulmonary: Effort: Pulmonary effort is normal. Breath sounds: Decreased breath sounds present. No wheezing. Abdominal: General: Bowel sounds are normal. Palpations: Abdomen is soft. Tenderness: There is no abdominal tenderness. Musculoskeletal: Right lower leg: Edema present. Left lower leg: Edema present. Skin: General: Skin is warm and dry. Capillary Refill: Capillary refill takes less than 2 seconds. Findings: Bruising and ecchymosis present. Comments: Surgical Incisions: well approximate; clean dry with no drainage noted. Surrounding skin no redness, warmth, or signs of infection noted. Neurological: Mental Status: He is alert. Psychiatric: Behavior: Behavior is cooperative. Assessment: MVCAD/NSTEMI s/p CABG LLL nodule (10mm) HTN T2DM HLD Post operative Pulm Management: Normal Post-operative Course Post-operative Atrial Fibrillation: []Yes [x] No Acute blood loss anemia/consumptive thrombocytopenia Plan: ASA/Statin Increase BB- Metoprolol 25mg BID Continue Lasix 40mg BID Encouraged pulmonary toilet and increasing ambulation Endocrine signed off- (more content not included)... Normal [facility] XR CHEST 1 VIEWon 06-11-2023 XR CHEST 1 VIEW Patient Name: CHAU SWIFT : 1940 [facility]#: [id number] Exam Date/Time: 06/11/2023 05:26 Procedure: XR CHEST 1 VIEW Ordering Provider: KAY KYLE Reason For Exam: Shortness of breath PORTABLE CHEST CLINICAL INDICATION: Dyspnea. COMPARISON: 06/10/2023. TECHNIQUE: A single frontal view of thorax was obtained and reviewed. IMPRESSION: 1. Lines/ tubes/ devices: Sternotomy wires. 2. Lungs and Pleura: Bilateral prominent interstitial markings suggest pulmonary vascular congestion. Bilateral lower lobe opacities favor bibasilar atelectasis and/or small pleural effusions, unchanged. No pneumothorax is evident. 3. Heart and mediastinum: Mild cardiomegaly, unchanged. Prominence of mediastinum is probably secondary to aortic tortuosity 4. Bones: Thoracic degenerative spondylosis. Report Dictated on Electronically Signed By: Alex Bardales DO Electronically Signed Date/Time: 06/11/2023 5:39 AM EDT Normal [facility] XR Chest Single viewon 06-10 [facility] RADIOLOGY [facility] RADIOLOGY [facility] Radiology Study observation (narrative) [facility] XR Chest Single viewOrdered By: Alex Bardales on 06-11-2023 [facility] Work Phone: BASIC METABOLIC PANELon 05-15 Anion gap [Moles/Vol] 8 mmol/L Normal 3-13 [facility] Comment on above: Performed By: #### L [id number], [id number] #### [employer]roy Cutting Supervisor: LUCINA FERRERA ([phone]) [facility] ([facility]) [address] [place] [address] Calcium [Mass/Vol] 8.5 mg/dL Normal 8.4-10.4 [facility] Comment on above: Performed By: #### L AB103, LAB15 #### [employer]ting Supervisor: LUCINA FERRERA ([phone]) [facility] [address] [place] [address] [place] Chloride [Moles/Vol] 102 mmol/L Normal 98-107 [facility] Comment on above: Performed By: #### L AB103, LAB15 #### [employer]roy Cutting Supervisor: LUCINA FERRERA ([phone]) [facility] ([facility]) [address] [place] [address] [place] CO2 [Moles/Vol] 25 mmol/L Normal 22-30 [facility] Comment on above: Performed By: #### L AB103, LAB15 #### [employer] Cutting Supervisor: LUCINA FERRERA ([phone]) [facility] ([facility] [address] [place] [address] [place] Creatinine [Mass/Vol] 1.25 mg/dL Normal 0.66-1.25 [facility] Comment on above: Performed By: #### L AB103, LAB15 #### [employer]ting Supervisor: LUCINA FERRERA ([phone]) [facility] ([facility]) [address] [place] [address] [place] GLOMERULAR FILTRATION RATE ML/MIN/1.73 SQ M.PREDICTED 57.5 mL/min/1.73m*2 Low >60.0 [facility] Comment on above: Result Comment: Calc ulation based on the Chronic Kidney Disease Epidemiology Collaboration (CKD-EPI) equation refit without adjustment for race Performed By: #### L AB103, LAB15 #### [employer]ting Supervisor: LUCINA FERRERA ([phone]) [facility] ([facility]) [address] [place] [address] Glucose [Mass/Vol] 135 mg/dL High 70-100 [facility] Comment on above: Performed By: #### L AB103, LAB15 #### Cor[employer] Cutting Supervisor: LUCINA FERRERA ([phone]) [facility]) [address] [place] [address] Potassium [Moles/Vol] 4.2 mmol/L Normal 3.5-5.1 [facility] Comment on above: Performed By: #### L AB103, LAB15 #### [employer]ting Supervisor: LUCINA FERRERA ([phone]) [facility] ([facility]) [address] [place] [address] [place] Sodium [Moles/Vol] 134 mmol/L Low 135-145 [facility] Comment on above: Performed By: #### L AB103, LAB15 #### [employer] Supervisor: LUCINA FERRERA ([phone]) [facility] ([facility]) [address] [place] [address] Urea nitrogen [Mass/Vol] 42 mg/dL High 9-20 [facility] Comment on above: Performed By: #### L AB103, LAB15 #### [employer] Supervisor: LUCINA FERRERA ([phone]) [facility] ([facility]) [address] [place] [address] Basic metabolic 1998 panelon 06-10-2023 Anion gap [Moles/Vol] 8 mmol/L 3 - 13 mmol/L [facility] Calcium [Mass/Vol] 8.5 mg/dL 8.4 - 10. 4 mg/dL [facility] Chloride [Moles/Vol] 102 mmol/L 98 - 10 7 mmol/L [facility] CO2 [Moles/Vol] 25 mmol/L 22 - 30 mmol/L [facility] Creatinine [Mass/Vol] 1.25 mg/dL 0.66 - 1.25 mg/dL [facility] GFR/1.73 sq M.predicted MDRD (S/P/Bld) [Vol rate/Area] 57.5 mL/min/{1.73_m2} Low - PINF [facility] th Glucose [Mass/Vol] 135 mg/dL High 70 - 100 mg/dL [facility] Potassium [Moles/Vol] 4.2 mmol/L 3.5 - 5.1 mmol/L [facility] Sodium [Moles/Vol] 134 mmol/L Low 135 - 145 mmol/L [facility] Urea nitrogen [Mass/Vol] 42 mg/dL High 9 - 20 mg/dL [facility] CALCIUM, IONIZEDon CALCIUM IONIZED 4.20 mg/dL Low 4.30-5.20 [facility] Comment on above: Order Comment: Obtai n PRN and check ionized Ca level if serum Ca level less than 8.0 Performed By: #### L AB54 #### [employer] Cutting Supervisor: LUCINA FERRERA ([phone]) [facility] ([facility]) [address] [place] [address] PH, IONIZED CALCIUM 7.41 Normal 7.31-7.46 [facility] Comment on above: Order Comment: Obtai n PRN and check ionized Ca level if serum Ca level less than 8.0 Performed By: #### L AB54 #### [employer] Supervisor: LUCINA FERRERA ([phone]) [facility] ([facility]) [address] [place] [address] CBC (HEMOGRAM)on 06-10-2023 Erythrocyte distribution width (RBC) [Ratio] 14.1 % Normal 11.5-15.0 [facility] Comment on above: Performed By: #### L AB54 #### [employer] Supervisor: LUCINA FERRERA ([phone]) [facility] ([facility]) [address] [place] [address] Hematocrit (Bld) [Volume fraction] 28.6 % Low 40.0-52.0 [facility] Comment on above: Performed By: #### L AB54 #### [employer] Cutting Supervisor: LUCINA FERRERA ([phone]) [facility] ([facility]) [address] [place] [address] Hemoglobin (Bld) [Mass/Vol] 9.6 g/dL Low 13.0-18.0 [facility] Comment on above: Performed By: #### L AB54 #### [employer] Supervisor: LUCINA FERRERA ([phone]) [facility] ([facility]) [address] [place] [address] MCH (RBC) [Entitic mass] 31.1 pg Normal 26.0-34.0 [facility] Comment on above: Performed By: #### L AB54 #### [employer] Cutting Supervisor: LUCINA FERRERA ([phone]) [facility]) [address] [place] [address] MCHC 33.6 % Normal 30.5-36.0 [facility] Comment on above: Performed By: #### L AB54 #### [employer] Cutting Supervisor: LUCINA FERRERA ([phone]) [facility] ([facility]) [address] [place] [address] MCV (RBC) [Entitic vol] 92.6 fL Normal 77.0-99.0 S [facility] Comment on above: Performed By: #### L AB54 #### [employer] Cutting Supervisor: LUCINA FERRERA ([phone]) [facility]) [address] [place] [address] Platelet mean volume (Bld) [Entitic vol] 9.9 fL Normal 9.0-12.7 [facility] Comment on above: Performed By: #### L AB54 #### [employer] Supervisor: LUCINA FERRERA ([phone]) [facility]) [address] [place] [address] Platelets (Bld) [#/Vol] 187 10*3/uL Normal 140-440 [facility] Comment on above: Performed By: #### L AB54 #### [employer] Supervisor: LUCINA FERRERA ([phone]) [facility] ([facility]) [address] [place] [address] RBC (Bld) [#/Vol] 3.09 10*6/uL Low 4.40-5.90 [facility] Comment on above: Performed By: #### L [id number] #### [employer] Supervisor: LUCINA FERRERA ([phone]) [facility] ([facility]) [address] [place] [address] WBC (Bld) [#/Vol] 13.1 10*3/uL High 3.6-10.7 [facility] Comment on above: Performed By: #### L [id number] #### [employer] Supervisor: LUCINA FERRERA ([phone]) [facility] ([facility]) [address] [place] [address] CBC panel Auto (Bld)Ordered By: Devon Goyal on 06-10-2023 Erythrocyte distribution width (RBC) [Ratio] 14.1 % 11.5 - 15.0 % [facility] Hematocrit (Bld) [Volume fraction] 28.6 % Low 40.0 - 52.0 % [facility] Hemoglobin (Bld) [Mass/Vol] 9.6 g/dL Low 13.0 - 18.0 g/dL [facility] Interpretation and review of laboratory results Abnormal [facility] MCH (RBC) [Entitic mass] 31.1 pg 26. 0 - 34.0 pg [facility] MCHC (RBC) [Mass/Vol] 33.6 % 30.5 - 36.0 % [facility] MCV (RBC) [Entitic vol] 92.6 fL 77.0 - 99.0 fL [facility] Platelet mean volume (Bld) [Entitic vol] 9.9 fL 9.0 - 12.7 fL [facility] Platelets (Bld) [#/Vol] 187 10*3/uL 140 - 440 10*3/uL [facility] RBC (Bld) [#/Vol] 3.09 10*6/uL Low 4.40 - 5.9 0 10*6/uL [facility] WBC (Bld) [#/Vol] 13.1 10*3/uL High 3.6 - 10.7 10*3/uL [facility] Calcium.ionized [Moles/Vol]o n 06-10-2023 Calcium.ionized (Bld) [Moles/Vol] 4.20 mg/dL Low 4.30 - 5.20 mg/dL [facility] Interpretation and review of laboratory results Abnormal [facility] PH, IONIZED CALCIUM 7.41 7.31 - 7.46 [facility] IDNon 06-10-2023 IDN The patient is Moderately Stable - Low risk of patient condition declining or worsening The patient's goals for the shift include Stay comfortable The clinical goals for the shift include remain hemodynamically stable Problem: Pain - Adult Goal: Verbalizes/displays adequate comfort level or baseline comfort level Outcome: Progressing Problem: Safety - Adult Goal: Free from fall injury Outcome: Progressing Problem: Discharge Planning Goal: Discharge to home or other facility with appropriate resources Outcome: Progressing Problem: Cardiovascular - Adult Goal: Maintains optimal cardiac output and hemodynamic stability Outcome: Progressing Flowsheets (Taken 06/10/2023 0730) Maintains optimal cardiac output and hemodynamic stability: Monitor blood pressure and heart rate Monitor urine output and notify Licensed Independent Practitioner for values outside of normal range Assess for signs of decreased cardiac output Problem: Cardiovascular - Adult Goal: Absence of cardiac dysrhythmias or at baseline Outcome: Progressing Flowsheets (Taken 06/10/2023 07) Absence of cardiac dysrhythmias or at baseline: Monitor cardiac rate and rhythm Assess for signs of decreased cardiac output Normal [facility] Laboratory - Chemistry and C hemistry - challengeon 06-10-2023 Glucose [Mass/Vol] 132 mg/dL High 70 - 100 mg/dL [facility] Glucose [Mass/Vol] 145 mg/dL High 70 - 100 mg/dL [facility] Glucose [Mass/Vol] 124 mg/dL High 70 - 100 mg/dL [facility] Magnesium [Mass/Vol] 2.4 mg/dL High 1.6 - 2 .3 mg/dL [facility] MAGNESIUMon 06-10-2023 Magnesium [Mass/Vol] 2.4 mg/dL High 1.6-2.3 [facility] Comment on above: Performed By: #### L [id number], [id number] #### [employer] Supervisor: LUCINA FERRERA ([phone]) [facility] ([facility]) [address] [place] [address] No Panel Informationon 04-27 -2024 Interpretation and review of laboratory results Abnormal [facility] Interpretation and review of laboratory results Abnormal [facility] Interpretation and review of laboratory results Abnormal [facility] Interpretation and review of laboratory results Abnormal [facility] Health Radiology Study observation (narrative) Deja chavarria Radiology Study observation (narrative) Deja chavarria Radiology Study observation (narrative) Deja chavarria Progress Noteon 06-10-2023 Progress Note PHYSICAL THERAPY [facility] Treatment Note Name/MRN: Chau Barron ([id number]) Date of : 1940 Age: 82 y.o. Room/Bed: T1-116/T1-116 A Discharge Recommendation: Home with Home health PT, Home with assist PRN Equipment Needed: (TBD) Prior Level of Function ADL Assistance: Independent Ambulation Assistance: Independent Transfer Assistance: Independent Assessment Pt progressing with ambulation goal this date, pt declining stairs and exercises d/t fatigue. Pt performs transfers to/from chair with CGA. Pt amb with CGA but needs to takes breaks d/t SOB. Subjective Pleasant and agreeable. I'm surprised by how out of breath I am, before surgery I could walk the dogs. Medical Precautions: No active isolations Proper PPE donned/doffed in accordance with facility standards. Fall Risk: Oswald Fall Risk Score: 45 (High Risk) Precautions/Restrictio ns: Sternal Precautions: No Pushing, No Pulling, No Lifting Greater Than 10 lbs Overall Cognitive Status: WNL Overall Orientation Status: Oriented x4 Family/Caregiver Present: none Objective Ambulation Ambulation 1 Assistive device(s) used: none Assist level: Contact Guard Distance (ft): 15 x 4 Quality of gait: wide MARCELO, slow marcie, postural sway Pt taking breaks about every 15'-20' and resting at counter on nurses station. Transfers/Mobility Sit to stand: Contact Guard Stand to sit: Contact Guard Pt rocks to stand from chair. Pt uses pillow to brace when transferring. Device(s) used: none Plan Continue acute PT per plan of care. Safety/Education Safety Safety Devices in place: call light within reach and left in chair Restraints: N/A Education Education Given To: patient Education Provided: PT Role, PT Goals, Gait Training, Home Exercise Program, Transfer Training, Energy Conservation, Fall Prevention Education, Discharge Recommendations, and Benefits of Increasing Activity Education Method: Verbal and Demonstration Barriers to Learning: None Education Outcome: Verbalized Understanding Outcome Measures AM-PAC AM-PAC Inpatient Mobility Raw Score (No Stairs) : 17 JH-HLM -HLM Score: Walked 25 ft or more (i.e. walked outside of room) Goals Patient Stated Goal: To have less pain, go home Encounter Problems Encounter Problems (Active) Cardiac Patient will perform bed mobility with CGA in order to improve independence and prepare for out of bed mobility. (Not Addressed) Start: 06/07/23 Expected End: 06/21/23 Patient will complete sit to stand transfer with CGA to [facility] in order to improve safety and prepare for out of bed mobility. (Progressing) Start: 06/07/23 Expected End: 06/21/23 Patient will ambulate 600 feet or ambulate 5 minutes with supervision with RPE of 14 or lower. (Progressing) Start: 06/07/23 Expected End: 06/21/23 Patient will ascend and descend 4 # stairs with supervision rail for balance only. (Not Addressed) Start: 06/07/23 Expected End: 06/21/23 Patient will be independent with P&C exercises. (Not Addressed) Start: 06/07/23 Expected End: 06/21/23 Patient will be independent with managing secretions and home walking program. (Not Addressed) Start: 06/07/23 Expected End: 06/21/23 Pain - Adult Therapy Time Individual Co-treatment Time In 1123 Time Out 1139 Minutes 16 Racheal Adam PT [facility] Progress Note -- Attestation signed by Ying Mcintosh DO at 06/10/2023 12:13 PM I personally saw and evaluated the patient on 06/10/23. I reviewed and agree with the BELKIS?s documentation. I provided a substantive portion of the care of this patient. I personally performed the exam and MDM for this encounter as follows Assessment: mvCAD/NSTEMI now s/p CABGx4 (POD 4) Left lower lobe nodule s/p left lower lobe wedge resection Pericardial cyst s/p pericardial cyst resection Post op pulmonary management: expected post op course Acute post op blood loss anemia EDMUNDO Mild to moderate aortic stenosis HTN/HLD DM2 with hyperglycemia (A1c 7.5) Plan: -cont supplemental 02 via NC, wean as able. Encourage pulm toilet, IS/acapella, progressive mobility. Cont lasix 40 mg IV BID -cont ASA, statin. Start BB today -Cr trending up, 1.25 today. Monitor closely -PT/OT, current recs are home with assist prn -tele status Cardiothoracic Surgery/CCM Progress Note PATIENT NAME: Chau Barron DATE: 06/10/23 HPI: 82 y.o. with pmHx of HLD, HTN, T2DM who was transffered from outside hospital for CABG consideration. Per paper chart brought with the patient, he developed midsternal chest pressure, coughing, burping, and sweating while riding his lawnmower. By the time the patient arrived to the ED - chest pressure had slightly improved. Cardiac enzymes were elevated and he was admitted as NSTEMI and Cardiology was consulted. Cardiac cath was then preformed which showed: Distal LM 60-70% stenosis left main bifurcating into LAD, ramus and left circumflex. LAD with ostial and proximal ~70%. Distal LAD around 95%, ostial LCx 70%, RCA large dominant , calcified with proximal RCA thrombus: JIMMY-3 flow in the RCA. He was transferred to [facility] for CABG consideration. Full workup completed at [facility], CT chest revealed lung nodule. Surgery planned for 06/06/23. Surgery/Procedure: 06/06/23: Dr. Peterson- CABGx 4 (HERNANDEZ-LAD, SVG-PDA, SVG- RAMUS, SVG-DIAG1), LLE EVH, LLL wedge resection, pericardial cyst resection Interval History: 06/10/23, POD# 4: VSS, afebrile, on RA. NSR on tele. No acute events overnight. Sitting in chair, no acute complaints this morning. Cr- 1.25 (1.11, 1.02) Review of Systems Constitutional: Positive for activity change and fatigue. Negative for appetite change, diaphoresis and fever. Respiratory: Negative for cough, shortness of breath and wheezing. Cardiovascular: Positive for leg swelling. Negative for chest pain and palpitations. Gastrointestinal: Negative for abdominal distention, nausea and vomiting. Skin: Negative for color change, pallor and rash. Objective: UO cc/24hrs: 2,250 mL + 2x unmeasured Last BM Date: 06/09/23 Vitals: BP: 102/64, MAP (mmHg): 76, BP Method: Automatic Heart Rate: 79 Resp: 17 Temp: 36.7 ?C (98.1 ?F), Temp Source: Temporal BMI (Calculated): 34.2 CXR: BMP: Recent Labs 06/08/23 0533 06/09/23 0306 06/10/23 0433 NA 131* 130* 134* K 4.4 4.2 4.2 CL 102 100 102 CO2 20* 23 25 BUN 22* 34* 42* CREATININE 1.02 1.11 1.25 CALCIUM 8.7 8.6 8.5 MG 2.3 2.4* 2.4* CBC: Recent Labs 06/08/23 0533 06/09/23 0306 06/10/23 0433 WBC 20.8* 13.6* 13.1* HGB 9.8* 9.2* 9.6* HCT 29.4* 27.4* 28.6* PLT 151 139* 187 MCV 94.5 94.2 92.6 RDW 14.3 13.9 14.1 INR: No results for input(s): INR in the last 72 hours. Physical Exam Cardiovascular: Rate and Rhythm: Normal rate and regular rhythm. Heart sounds: Normal heart sounds. No murmur heard. No friction rub. Pulmonary: Effort: Pulmonary effort is normal. Breath sounds: Decreased breath sounds present. No wheezing. Abdominal: General: Bowel sounds are normal. Palpations: Abdomen is soft. Tenderness: There is no abdominal tenderness. Musculoskeletal: Right lower leg: Edema present. Left lower leg: Edema present. Skin: General: Skin is warm and dry. Capillary Refill: Capillary refill takes less than 2 seconds. Findings: Bruising and ecchymosis present. Comments: Surgical Incisions: well approximate; clean dry with no drainage noted. Surrounding skin no redness, warmth, or signs of infection noted. Neurological: Mental Status: He is alert. Psychiatric: Behavior: Behavior is cooperative. Assessment: MVCAD/NSTEMI s/p CABG LLL nodule (10mm) HTN T2DM HLD Post operative Pulm Management: Normal Post-operative Course Post-operative Atrial Fibrillation: []Yes [x] No Acute blood loss anemia/consumptive thrombocytopenia Plan: ASA/Statin Start low dose BB- Metoprolol 12.5mg BID Continue Lasix 40mg BID Remove central line Encouraged pulmonary toilet and increasing ambulation Endocrine signed off- resume home regimen at discharge if GFR > 60, consider SGLT2 as OP PT/OT: Home with Home health PT, (more content not included)... Normal [facility] XR CHEST 1 VIEWon 06-10-2023 XR CHEST 1 VIEW Patient Name: CHAU SWIFT : 1940 Exam Date/Time: 06/10/2023 05:35 Procedure: XR CHEST 1 VIEW Ordering Provider: KAY KYLE Reason For Exam: Shortness of breath CLINICAL INDICATION: Shortness of breath COMPARISON: 06/09/2023 TECHNIQUE: Single portable AP radiograph of the chest. FINDINGS: LUNGS/PLEURA:Bibasilar opacities show mild interval increase compared to 06/07/2023. Trachea is midline. No pneumothorax. MEDIASTINUM:Heart size is enlarged but unchanged. VASCULARITY: Mild pulmonary vascular congestion. BONES:Unremarkable SUPPORT LINES: Right-sided central line and left basilar chest tube in unchanged position. OTHER: IMPRESSION: Bibasilar opacities slightly increased compared to 06/09/2023 consistent with atelectasis/effusion versus infiltrate. Unchanged cardiomegaly with mild pulmonary vascular congestion. Left basilar chest tube in place. No pneumothorax. Report Dictated on Electronically Signed By: Go Santos MD Electronically Signed Date/Time: 06/10/2023 9:14 AM EDT Normal [facility] XR Chest Single viewon 06-09 [facility] Radiology Study observation (narrative) [facility] BASIC METABOLIC PANELon 05-15 Anion gap [Moles/Vol] 7 mmol/L Normal 3-13 [facility] Comment on above: Performed By: #### L [id number] #### [employer] Supervisor: LUCINA FERRERA ([phone]) [facility] [address] [place] [address] Calcium [Mass/Vol] 8.6 mg/dL Normal 8.4-10.4 [facility] Comment on above: Performed By: #### L [id number] #### [employer] Supervisor: LUCINA FERRERA ([phone]) [facility] ([facility] [address] [place] [address] [place] Chloride [Moles/Vol] 100 mmol/L Normal 98-107 [facility] Comment on above: Performed By: #### L [id number] #### [employer] Supervisor: LUCINA FERRERA ([phone]) [facility] [address] [place] [address] [place] CO2 [Moles/Vol] 23 mmol/L Normal 22-30 [facility] Comment on above: Performed By: #### L [id number] #### [employer] Supervisor: LUCINA FERRERA ([phone]) [facility] ([facility]) [address] [place] [address] Creatinine [Mass/Vol] 1.11 mg/dL Normal 0.66-1.25 [facility] Comment on above: Performed By: #### L [id number] #### [employer] Supervisor: LUCINA FERRERA ([phone]) [facility] ([facility]) [address] [place] [address] [place] GLOMERULAR FILTRATION RATE ML/MIN/1.73 SQ M.PREDICTED 66.3 mL/min/1.73m*2 Normal >60.0 [facility] Comment on above: Result Comment: Calc ulation based on the Chronic Kidney Disease Epidemiology Collaboration (CKD-EPI) equation refit without adjustment for race Performed By: #### L [id number] #### [employer] Supervisor: LUCINA FERRERA ([phone]) [facility] ([facility]) [address] [place] [address] Glucose [Mass/Vol] 113 mg/dL High 70-100 [facility] Comment on above: Performed By: #### L [id number] #### [employer] Supervisor: LUCINA FERRERA ([phone]) [facility] ([facility]) [address] [place] [address] Potassium [Moles/Vol] 4.2 mmol/L Normal 3.5-5.1 [facility] Comment on above: Performed By: #### L [id number] #### [employer] Supervisor: LUCINA FERRERA ([phone]) [facility] ([facility]) [address] [place] [address] Sodium [Moles/Vol] 130 mmol/L Low 135-145 [facility] Comment on above: Performed By: #### L [id number] #### [employer] Supervisor: LUCINA FERRERA ([phone]) [facility] ([facility]) [address] [place] [address] Urea nitrogen [Mass/Vol] 34 mg/dL High 9-20 [facility] Comment on above: Performed By: #### L [id number] #### [employer] Supervisor: LUCINA FERRERA ([phone]) [facility] ([facility]) [address] [place] [address] Basic metabolic 1998 panelon 06-09-2023 Anion gap [Moles/Vol] 7 mmol/L 3 - 13 mmol/L [facility] Calcium [Mass/Vol] 8.6 mg/dL 8.4 - 10. 4 mg/dL [facility] Chloride [Moles/Vol] 100 mmol/L 98 - 10 7 mmol/L [facility] CO2 [Moles/Vol] 23 mmol/L 22 - 30 mmol/L [facility] Creatinine [Mass/Vol] 1.11 mg/dL 0.66 - 1.25 mg/dL [facility] GFR/1.73 sq M.predicted MDRD (S/P/Bld) [Vol rate/Area] 66.3 mL/min/{1.73_m2} - PINF [facility] Glucose [Mass/Vol] 113 mg/dL High 70 - 100 mg/dL [facility] Potassium [Moles/Vol] 4.2 mmol/L 3.5 - 5.1 mmol/L [facility] Sodium [Moles/Vol] 130 mmol/L Low 135 - 145 mmol/L [facility] Urea nitrogen [Mass/Vol] 34 mg/dL High 9 - 20 mg/dL [facility] CALCIUM, IONIZEDon CALCIUM IONIZED 4.40 mg/dL Normal 4.30-5.20 [facility] Comment on above: Order Comment: Obtai n PRN and check ionized Ca level if serum Ca level less than 8.0 Performed By: #### L [id number] #### [employer] Supervisor: LUCINA FERRERA ([phone]) [facility] ([facility]) [address] [place] [address] PH, IONIZED CALCIUM 7.38 Normal 7.31-7.46 [facility] Comment on above: Order Comment: Obtai n PRN and check ionized Ca level if serum Ca level less than 8.0 Performed By: #### L [id number] #### [employer] Cutting Supervisor: LUCINA FERRERA ([phone]) [facility] ([facility]) [address] [place] [address] CBC (HEMOGRAM)on 06-09-2023 Erythrocyte distribution width (RBC) [Ratio] 13.9 % Normal 11.5-15.0 [facility] Comment on above: Performed By: #### L [id number] #### [employer] Supervisor: LUCINA FERRERA ([phone]) [facility] [address] [place] [address] Hematocrit (Bld) [Volume fraction] 27.4 % Low 40.0-52.0 [facility] Comment on above: Performed By: #### L [id number] #### [employer] Cutting Supervisor: LUCINA FERRERA ([phone]) [facility] ([facility]) [address] [place] [address] Hemoglobin (Bld) [Mass/Vol] 9.2 g/dL Low 13.0-18.0 [facility] Comment on above: Performed By: #### L [id number] #### [employer] Cutting Supervisor: LUCINA FERRERA ([phone]) [facility]) [address] [place] [address] MCH (RBC) [Entitic mass] 31.6 pg Normal 26.0-34.0 [facility] Comment on above: Performed By: #### L [id number] #### [employer]ting Supervisor: LUCINA FERRERA ([phone]) [facility] ([facility]) [address] [place] [address] MCHC 33.6 % Normal 30.5-36.0 [facility] Comment on above: Performed By: #### L [id number] #### [employer] Cutting Supervisor: LUCINA FERRERA ([phone]) [facility] ([facility]) [address] [place] [address] MCV (RBC) [Entitic vol] 94.2 fL Normal 77.0-99.0 S [facility] Comment on above: Performed By: #### L [id number] #### [employer] Supervisor: LUCINA FERRERA ([phone]) [facility] ([facility]) [address] [place] [address] Platelet mean volume (Bld) [Entitic vol] 10.0 fL Normal 9.0-12.7 [facility] Comment on above: Performed By: #### L [id number] #### [employer] Supervisor: LUCINA FERRERA ([phone]) [facility]) [address] [place] [address] Platelets (Bld) [#/Vol] 139 10*3/uL Low 140-440 [facility] Comment on above: Performed By: #### L [id number] #### [employer] Supervisor: LUCINA FERRERA ([phone]) [facility]) [address] [place] [address] RBC (Bld) [#/Vol] 2.91 10*6/uL Low 4.40-5.90 [facility] Comment on above: Performed By: #### L [id number] #### [employer] Supervisor: LUCINA FERRERA ([phone]) [facility] ([facility]) [address] [place] [address] WBC (Bld) [#/Vol] 13.6 10*3/uL High 3.6-10.7 [facility] Comment on above: Performed By: #### L [id number] #### [employer] Supervisor: LUCINA FERRERA ([phone]) [facility] ([facility]) [address] [place] [address] CBC panel Auto (Bld)on 06-08 Erythrocyte distribution width (RBC) [Ratio] 13.9 % 11.5 - 15.0 % [facility] Hematocrit (Bld) [Volume fraction] 27.4 % Low 40.0 - 52.0 % [facility] Hemoglobin (Bld) [Mass/Vol] 9.2 g/dL Low 13.0 - 18.0 g/dL [facility] Interpretation and review of laboratory results Abnormal [facility] MCH (RBC) [Entitic mass] 31.6 pg 26. 0 - 34.0 pg [facility] MCHC (RBC) [Mass/Vol] 33.6 % 30.5 - 36.0 % [facility] MCV (RBC) [Entitic vol] 94.2 fL 77.0 - 99.0 fL [facility] Platelet mean volume (Bld) [Entitic vol] 10.0 fL 9.0 - 12.7 fL [facility] Platelets (Bld) [#/Vol] 139 10*3/uL Low 140 - 440 10*3/uL [facility] RBC (Bld) [#/Vol] 2.91 10*6/uL Low 4.40 - 5.9 0 10*6/uL [facility] WBC (Bld) [#/Vol] 13.6 10*3/uL High 3.6 - 10.7 10*3/uL [facility] Calcium.ionized [Moles/Vol]o n 06-09-2023 Calcium.ionized (Bld) [Moles/Vol] 4.40 mg/dL 4.30 - 5.20 mg/dL [facility] Interpretation and review of laboratory results Normal [facility] PH, IONIZED CALCIUM 7.38 7.31 - 7.46 [facility] IDNon 06-09-2023 IDN Problem: Pain - Adul t Goal: Verbalizes/displays adequate comfort level or baseline comfort level Outcome: Progressing Flowsheets (Taken 06/09/20232003) Verbalizes/displays adequate comfort level or baseline comfort level: Encourage patient to monitor pain and request assistance Assess pain using appropriate pain scale Administer analgesics based on type and severity of pain and evaluate response Implement non-pharmacological measures as appropriate and evaluate response Consider cultural and social influences on pain and pain management Notify Licensed Independent Practitioner if interventions unsuccessful or patient reports new pain Problem: Safety - Adult Goal: Free from fall injury Outcome: Progressing Flowsheets (Taken 06/04/2023 0800 by Chayito Busby RN) Free from fall injury: Instruct family/caregiver on patient safety Problem: Discharge Planning Goal: Discharge to home or other facility with appropriate resources Outcome: Progressing Flowsheets (Taken 06/09/20232003) Discharge to home or other facility with appropriate resources: Identify barriers to discharge with patient and caregiver Arrange for needed discharge resources and transportation as appropriate Identify discharge learning needs (meds, wound care, etc) Arrange for interpreters to assist at discharge as needed Refer to discharge planning if patient needs post-hospital services based on physician order or complex needs related to functional status, cognitive ability or social support system Problem: Cardiovascular - Adult Goal: Maintains optimal cardiac output and hemodynamic stability Outcome: Progressing Flowsheets (Taken 06/09/20232003) Maintains optimal cardiac output and hemodynamic stability: Monitor blood pressure and heart rate Monitor urine output and notify Licensed Independent Practitioner for values outside of normal range Assess for signs of decreased cardiac output Administer fluid and/or volume expanders as ordered Administer vasoactive medications as ordered For PPHN infants, administer sedation as ordered and minimize all controllable stressors. Goal: Absence of cardiac dysrhythmias or at baseline Outcome: Progressing Flowsheets (Taken 06/09/20232003) Absence of cardiac dysrhythmias or at baseline: Monitor cardiac rate and rhythm Assess for signs of decreased cardiac output Administer antiarrhythmia medication and electrolyte replacement as ordered Problem: Knowledge Deficit Goal: Patient/family/caregiv er demonstrates understanding of disease process, treatment plan, medications, and discharge instructions Outcome: Progressing Flowsheets (Taken 06/09/20232003) Patient/family/caregiv er demonstrates understanding of disease process, treatment plan, medications, and discharge instructions: Complete learning assessment and assess knowledge base Provide teaching via preferred learning methods Provide teaching at level of understanding Problem: Potential for Compromised Skin Integrity Goal: Skin Integrity is Maintained or Improved Outcome: Progressing Flowsheets (Taken 06/09/20232003) Skin integrity is maintained or improved: Assess and monitor skin integrity Relieve pressure to bony prominences Collaborate with interdisciplinary team and initiate plans and interventions as needed Encourage use of lotion/moisturizer on skin Keep skin clean and dry Monitor patient's hygiene practices Alternate a full bath with partial baths for elderly Avoid shearing Turn patient Identify patients at risk for skin breakdown on admission and per policy Goal: Nutritional status is improving Outcome: Progressing Flowsheets (Taken 06/09/20232003) Nutritional status is improving: Monitor and assess patient for malnutrition (ex- brittle hair, bruises, dry skin, pale skin and conjunctiva, muscle wasting, smooth red tongue, and disorientation) Collaborate with interdisciplinary team and initiate plan and interventions as ordered Monitor patient's weight and dietary intake as ordered or per policy Utilize nutrition screening tool and intervene per policy Determine patient's food preferences and provide high-protein, high-caloric foods as appropriate Assist patient with eating Allow adequate time for meals Encourage patient to take dietary supplement as ordered Collaborate with clinical piercing mill operator Include patient/family/caregiv er in decisions related to nutrition Problem: Urinary Incontinence Goal: Perineal skin integrity is maintained or improved Outcome: Progressing Flowsheets (Taken 06/09/20232003) Perineal skin integrity is maintained or improved: Assess genitourinary system, perineal skin, labs (urinalysis), and history of incontinence to include past management, aggravating, and alleviating factors Collaborate with interdisciplinary team including wound, ostomy, and continence nurse and initiate plans and interventions as needed Keep skin clean (more content not included)... Normal [facility] Laboratory - Chemistry and C hemistry - challengeon 06-09-2023 Glucose [Mass/Vol] 186 mg/dL High 70 - 100 mg/dL [facility] Glucose [Mass/Vol] 139 mg/dL High 70 - 100 mg/dL [facility] Glucose [Mass/Vol] 141 mg/dL High 70 - 100 mg/dL [facility] Magnesium [Mass/Vol] 2.4 mg/dL High 1.6 - 2 .3 mg/dL [facility] MAGNESIUMon 06-09-2023 Magnesium [Mass/Vol] 2.4 mg/dL High 1.6-2.3 [facility] Comment on above: Performed By: #### L [id number] #### Corduroy Cutting Supervisor: LUCINA FERRERA ([id number]) [facility] ([facility]) [address] [place] [address] No Panel Informationon 06-08 Interpretation and review of laboratory results Abnormal Formerly Named [facility] Interpretation and review of laboratory results Abnormal Formerly Named [facility] Interpretation and review of laboratory results Abnormal Formerly Named [facility] Interpretation and review of laboratory results Abnormal [facility] Blood Expiration Date [id number] [facility] [employer] Crossmatch interpretation COMP [facility] Dispense Status Released from [facility] [employer] Product Blood Type 9500 [facility] PRODUCT CODE [id number] [facility] PRODUCT CODE [id number] [facility] Health Unit ABO O [facility] Health Unit Number [id number] [facility] Unit Number [id number] [facility] Unit RH Negative [facility] Unit Volume 300 mL [facility] Radiology Study observation (narrative) [facility] Radiology Study observation (narrative) [facility] Radiology Study observation (narrative) [facility] Progress Noteon 06-09-2023 Progress Note Chest tubes assessed : no air leak, subcutaneous air noted. Chest tubes removed without difficulty and dressing applied. Patient tolerated well. Patient and nurse educated on possible complications to observe for. Will continue to monitor. Kiersten Corey, CHRISTIANO - CATHRYN 06/09/23 Normal [facility] Progress Note PHYSICAL THERAPY [facility] Treatment Note Name/MRN: Chau Barron ([id number]) Date of : 1940 Age: 82 y.o. Room/Bed: T1-116/T1-116 A Discharge Recommendation: Home with Home health PT, Home with assist PRN Equipment Needed: (TBD) Prior Level of Function ADL Assistance: Independent Ambulation Assistance: Independent Transfer Assistance: Independent Assessment Pt making progress with gait distance. O2 sats remained stable on 4L throughout session. Good compliance with sternal precautions and move within the tube Pt states he will be here until next week, likely to progress to home with assist and home PT. Notified PT. Subjective Pt up in chair. Agreeable to PT. Pain: 0-10 pain scale: 2/10 Location: sternum Medical Precautions: No active isolations Proper PPE donned/doffed in accordance with facility standards. Fall Risk: Oswald Fall Risk Score: 45 (High Risk) Precautions/Restrictio ns: Sternal Precautions: No Pushing, No Pulling, No Lifting Greater Than 10 lbs, educated on move in the tube Current lines and tubes: 1 chest tube, tele, mccord, external pacer, O2 at 4L Overall Cognitive Status: WNL Overall Orientation Status: Oriented x4 Family/Caregiver Present: none Objective Ambulation Ambulation 1 Assistive device(s) used: Nezzie Assist level: Contact Guard Distance (ft): 50ft x 2 Quality of gait: slow marcie Transfers/Mobility Sit to stand: Min Assist Stand to sit: Min Assist Device(s) used: Nezzie Exercises Exercises Upper Extremity: P&C ex's #1-9 x 10 reps, good ROM Comments: I.S x 10 reps- ~750-1000mL Plan Continue acute PT per plan of care. Safety/Education Safety Safety Devices in place: All fall risk precautions in place, call light within reach, left in chair, and nurse notified Restraints: No Education Sternal precautions, Gait training, Transfers, P&C ex's Outcome Measures AM-PAC AM-PAC Inpatient Mobility Raw Score (No Stairs) : 13 JH-HLM JH-HLM Score: Walked 25 ft or more (i.e. walked outside of room) Goals Patient Stated Goal: To have less pain, go home Encounter Problems Encounter Problems (Active) Cardiac Patient will perform bed mobility with CGA in order to improve independence and prepare for out of bed mobility. (Not Addressed) Start: 06/07/23 Expected End: 06/21/23 Patient will complete sit to stand transfer with CGA to none in order to improve safety and prepare for out of bed mobility. (Progressing) Start: 06/07/23 Expected End: 06/21/23 Patient will ambulate 600 feet or ambulate 5 minutes with supervision with RPE of 14 or lower. (Progressing) Start: 06/07/23 Expected End: 06/21/23 Patient will ascend and descend 4 # stairs with supervision rail for balance only. (Not Addressed) Start: 06/07/23 Expected End: 06/21/23 Patient will be independent with P&C exercises. (Progressing) Start: 06/07/23 Expected End: 06/21/23 Patient will be independent with managing secretions and home walking program. (Progressing) Start: 06/07/23 Expected End: 06/21/23 Pain - Adult Therapy Time Individual Co-treatment Time In 955 Time Out 1027 Minutes 31 Timed Code Treatment Minutes: 31 Minutes (gait, TP) Sheree Elliott PTA [facility] Progress Note Department of Rn Office al Medicine Division of Endocrinology, Diabetes, & Metabolism Endocrinology Note Patient Name: Chau Barron : 1940 AGE: 82 y.o. Room/Bed: [facility] A Admission Date: 06/02/2023 Visit Date: 06/09/2023 Reason for Endocrine Consult: Postop CABG Provider/Team Requesting Consult: CTS PCP: Kishan Ford MD Outpt Mechanical Service Specialist: No ASSESSMENT: Type 2 diabetes with hyperglycemia without long-term insulin use Multivessel CAD s/p CABG Hypertension Hyperlipidemia PLAN: Current sugars are well controlled with no insulin needs Continue Humalog low dose sliding scale with meals at this time ICU goal <180 GMF goal <150 POCT BG ACHS Hypoglycemia management per protocol Carb controlled diet Endocrine team will sign off at this time. Please reach out to us in case of questions ANTICIPATED ENDOCRINE HOME GOING RECOMMENDATIONS: Home Going Endocrine Rx Recommendations-- Resume home regimen of metformin XR 500 mg twice daily with meals as long as GFR is >60 Can consider SGLT2 elevators as outpatient Outpt Follow Up-- PCP SUBJECTIVE/HPI: CHIEF COMPLAINT: S/P CABG Type of DM: 2 Onset of DM: 2017 Home DM Medication Regimen: Metformin XR 500 mg twice daily DM control (last A1c/glucose data): 7.5% on current admission Patient was seen at bedside Feeling better Appetite is good He has been tolerating diet without any GI issues No other complaints offered at this time Glucose Date/Time Value Ref Range Status 06/09/2023 09:12 AM 141 (H) 70 - 100 mg/dL Final 06/08/2023 05:04 PM 148 (H) 70 - 100 mg/dL Final 06/08/2023 12:49 PM 118 (H) 70 - 100 mg/dL Final 06/08/2023 09:30 AM 133 (H) 70 - 100 mg/dL Final 06/07/2023 08:51 PM 171 (H) 70 - 100 mg/dL Final 06/07/2023 06:37 PM 145 (H) 70 - 100 mg/dL Final Review of Systems ROS negative except for those mentioned in HPI. OBJECTIVE: Vitals: 06/09/23 0500 06/09/23 0515 06/09/23 0600 06/09/23 0700 BP: 110/90 99/61 97/61 BP Location: Patient Position: Pulse: 81 75 76 74 Resp: Temp: TempSrc: SpO2: 95% 96% 97% 96% Weight: Height: Physical Exam Vitals and nursing note reviewed. Constitutional: Appearance: Normal appearance. HENT: Head: Normocephalic and atraumatic. Cardiovascular: Rate and Rhythm: Normal rate and regular rhythm. Pulmonary: Effort: Pulmonary effort is normal. Musculoskeletal: General: Swelling present. Skin: General: Skin is warm and dry. Neurological: General: No focal deficit present. Mental Status: He is alert and oriented to person, place, and time. Psychiatric: Mood and Affect: Mood normal. Behavior: Behavior normal. 24 hour intake/output: Intake/Output Summary (Last 24 hours) at 06/09/2023 0919 Last data filed at 06/09/2023 0500 Gross per 24 hour Intake 1183 ml Output 3090 ml Net -1907 ml Diet: Adult diet Regular; 5 carb choices (75 gm/meal) Medications (as per EMR): HomeMeds: Current Outpatient Medications Medication Instructions ascorbic acid (VITAMIN C) 1,000 mg, Oral, Daily aspirin 81 mg, Oral, Daily atorvastatin (LIPITOR) 40 mg, Oral, Daily Cholecalciferol 25 mcg, Oral, Daily co-enzyme Q-10 30 mg, Oral, Daily metFORMIN (OSM) (FORTAMET) 500 mg, Oral, Daily with evening meal, Do not crush, chew, or split. niacinamide 500 mg, Oral, 2 times daily with meals valsartan (DIOVAN) 80 mg, Oral, Daily Scheduled Meds:acetaminophen, 1,000 mg, Oral, q8h aspirin, 81 mg, Oral, Daily atorvastatin, 80 mg, Oral, Daily chlorhexidine, 15 mL, Mouth/Throat, BID furosemide, 40 mg, IntraVENous, BID heparin, 5,000 Units, SubCUTAneous, BID insulin lispro, 0-6 Units, SubCUTAneous, TID WC Lidocaine, 1 patch, Topical, Daily mupirocin, , Nasal, BID pantoprazole, 40 mg, Oral, qAM AC polyethylene glycol (PEG) 3350, 17 g, Oral, Daily senna-docusate sodium, 2 tablet, Oral, Nightly sodium chloride 0.9%, 10 mL, IntraVENous, 2 times per day sodium chloride 0.9%, 5-40 mL, IntraCATHeter, q8h Continuous Infusions:norepinephri ne, 0.01-0.2 mcg/kg/min, Last Rate: Stopped (06/08/23 09) PRN Meds:PRN medications: calcium gluconate, dextrose, dextrose, glucagon (rDNA), glucose, ipratropium-albuterol, magnesium hydroxide, magnesium sulfate OR magnesium sulfate, naloxone, norepinephrine, ondansetron ODT OR ondansetron, oxyCODONE OR oxyCODONE, potassium chloride OR potassium chloride OR potassium chloride, potassium chloride CR, sodium chloride 0.9% Diagnostic Workup: I reviewed pertinent Laboratory results, Radiographic results, and Other Clinical Notes at the time of today's encounter. Labs: No components found for: LABA1C No components found for: EAG Lab Results Component Value Date NA 130 (L) 06/09/2023 K 4.2 06/09/2023 CL 100 06/09/2023 CO2 23 06/09/2023 BUN 34 (H) 06/09/2023 CREATININE 1.11 06/09/2023 GLUCOSE 113 (H) 06/09/2023 CALCIUM 8.6 06/09/19 (more content not included)... Normal [facility] Progress Note -- Attestation signed by Ying Mcintosh DO at 06/09/2023 3:42 PM I personally saw and evaluated the patient on 06/09/23. I reviewed and agree with the BELKIS?s documentation. I provided a substantive portion of the care of this patient. I personally performed the exam and MDM for this encounter as follows Assessment: mvCAD/NSTEMI now s/p CABGx4 (POD 3) Left lower lobe nodule s/p left lower lobe wedge resection Pericardial cyst s/p pericardial cyst resection Post op pulmonary management: expected post op course Acute post op blood loss anemia Mild to moderate aortic stenosis HTN/HLD DM2 with hyperglycemia (A1c 7.5) Plan: -Weaned to regular NC yesterday evening, now on 6L, cont to wean as able . Encourage pulm toilet, IS/acapella, progressive mobility. Cont lasix 40 mg IV BID -DC chest tubes and mccord later today -cont ASA, statin -has not had any insulin requirements-->endocri ne signing off -PT/OT, current recs are home with assist prn -tele status Cardiothoracic Surgery/CCM Progress Note PATIENT NAME: Chau Barron DATE: 06/09/23 HPI: 82 y.o. with pmHx of HLD, HTN, T2DM who was transffered from outside hospital for CABG consideration. Per paper chart brought with the patient, he developed midsternal chest pressure, coughing, burping, and sweating while riding his lawnmower. By the time the patient arrived to the ED - chest pressure had slightly improved. Cardiac enzymes were elevated and he was admitted as NSTEMI and Cardiology was consulted. Cardiac cath was then preformed which showed: Distal LM 60-70% stenosis left main bifurcating into LAD, ramus and left circumflex. LAD with ostial and proximal ~70%. Distal LAD around 95%, ostial LCx 70%, RCA large dominant , calcified with proximal RCA thrombus: JIMMY-3 flow in the RCA. He was transferred to [facility] for CABG consideration. Full workup completed at [facility], CT chest revealed lung nodule. Surgery planned for 06/06/23. Surgery/Procedure: 06/06/23: Dr. Peterson- CABGx 4 (HERNANDEZ-LAD, SVG-PDA, SVG- RAMUS, SVG-DIAG1), LLE EVH, LLL wedge resection, pericardial cyst resection Interval History: 06/09/23, POD# 3: Weaned off levophed yesterday, VSS overnight, afebrile. NSR on tele. On 6L NC, off HFNC. Resting in chair, motivated to increase mobility today. Review of Systems Constitutional: Positive for activity change, appetite change and fatigue. Negative for diaphoresis and fever. Respiratory: Positive for shortness of breath. Negative for cough and wheezing. Cardiovascular: Positive for leg swelling. Negative for chest pain and palpitations. Gastrointestinal: Negative for abdominal distention, nausea and vomiting. Skin: Negative for color change, pallor and rash. Objective: CT output cc/24hrs: 130 mL UO cc/24hrs: 3,345 mL Last BM Date: 06/08/23 Vitals: BP: 99/61, MAP (mmHg): 73, BP Method: Automatic Heart Rate: 76 Resp: 18 Temp: 37 ?C (98.6 ?F), Temp Source: Temporal BMI (Calculated): 36.21 CXR: BMP: Recent Labs 06/06/23 1112 06/07/23 0015 06/07/23 0708 06/07/23 1318 06/08/23 0533 06/09/23 0306 NA 138 139 -- -- 131* 130* K 4.1 3.4* < > 4.6 4.4 4.2 CL 109* 106 -- -- 102 100 CO2 21* 20* -- -- 20* 23 BUN 18 20 -- -- 22* 34* CREATININE 0.82 1.11 -- -- 1.02 1.11 CALCIUM 9.7 8.8 -- -- 8.7 8.6 MG 3.7* 2.6* -- -- 2.3 2.4* PHOS 2.9 -- -- -- -- -- < > = values in this interval not displayed. CBC: Recent Labs 06/07/23 0015 06/08/23 0533 06/09/23 0306 WBC 27.2* 20.8* 13.6* HGB 10.8 9.8* 9.8* 9.2* HCT 29.8* 29.4* 27.4* PLT 203 151 139* MCV 94.3 94.5 94.2 RDW 13.8 14.3 13.9 INR: Recent Labs 06/06/23 1112 06/07/23 0015 INR 1.6* 1.1 Physical Exam Cardiovascular: Rate and Rhythm: Normal rate and regular rhythm. Heart sounds: Normal heart sounds. No murmur heard. No friction rub. Pulmonary: Effort: Pulmonary effort is normal. Breath sounds: Decreased breath sounds present. No wheezing. Abdominal: General: Bowel sounds are normal. Palpations: Abdomen is soft. Tenderness: There is no abdominal tenderness. Genitourinary: Comments: Mccord catheter to straight drain Musculoskeletal: Right lower leg: Edema present. Left lower leg: Edema present. Skin: General: Skin is warm and dry. Capillary Refill: Capillary refill takes less than 2 seconds. Findings: Bruising and ecchymosis present. Comments: Surgical Incisions: well approximate; clean dry with no drainage noted. Surrounding skin no redness, warmth, or signs of infection noted. Neurological: Mental Status: He is alert. Psychiatric: Behavior: Behavior is cooperative. Assessment: MVCAD/NSTEMI s/p CABG LLL nodule (10mm) HTN T2DM HLD Post operative Pulm Management: Normal Post-operative Course Post-operative At (more content not included)... Normal [facility] XR CHEST 1 VIEWon 06-09-2023 XR CHEST 1 VIEW Patient Name: CHAU SWIFT : 1940 Exam Date/Time: 06/09/2023 05:34 Procedure: XR CHEST 1 VIEW Ordering Provider: KAY KYLE Reason For Exam: Shortness of breath CLINICAL INFORMATION: Shortness of breath. Portable view of the chest at 0530 hours is provided and compared to a previous study dated June 08, 2023. FINDINGS: A right IJ line is in place. The distal tip is in the superior vena cava. The patient is status post CABG with the usual sternal wires and surgical clips. The heart is mildly enlarged. Infiltrates are noted in both lower lobes. The aeration of the lungs has mildly improved. Chest tubes are noted. There is no pneumothorax. IMPRESSION: 1. Postoperative changes. 2. Bibasilar infiltrates. 3. Chest tubes without pneumothorax. Report Dictated on Electronically Signed By: Domingo Langley MD Electronically Signed Date/Time: 06/09/2023 5:51 AM EDT Normal [facility] XR Chest Single viewon 06-08 [facility] Radiology Study observation (narrative) [facility] BASIC METABOLIC PANELon 05-15 Anion gap [Moles/Vol] 9 mmol/L Normal 3-13 [facility] Comment on above: Performed By: #### L [id number] #### Corduroy Cutting Supervisor: LUCINA FERRERA ([phone]) [facility]) [address] [place] [address] Calcium [Mass/Vol] 8.7 mg/dL Normal 8.4-10.4 [facility] Comment on above: Performed By: #### L [id number] #### Corduroy Cutting Supervisor: LUCINA FERRERA ([phone]) [facility]) [address] [place] [address] Chloride [Moles/Vol] 102 mmol/L Normal 98-107 [facility] Comment on above: Performed By: #### L AB54 #### Corduroy Cutting Supervisor: LUCINA FERRERA ([phone]) [facility]) [address] [place] [address] CO2 [Moles/Vol] 20 mmol/L Low 22-30 [facility] Comment on above: Performed By: #### L AB54 #### Corduroy Cutting Supervisor: LUCINA FERRERA ([phone]) [facility]) [address] [place] [address] Creatinine [Mass/Vol] 1.02 mg/dL Normal 0.66-1.25 [facility] Comment on above: Performed By: #### L AB54 #### Corduroy Cutting Supervisor: LUCINA FERRERA ([phone]) [facility] ([facility]) [address] [place] [address] GLOMERULAR FILTRATION RATE ML/MIN/1.73 SQ M.PREDICTED 73.4 mL/min/1.73m*2 Normal >60.0 [facility] Comment on above: Result Comment: Calc ulation based on the Chronic Kidney Disease Epidemiology Collaboration (CKD-EPI) equation refit without adjustment for race Performed By: #### L AB54 #### Corduroy Cutting Supervisor: LUCINA FERRERA ([phone]) [facility] ([facility]) [address] [place] [address] Glucose [Mass/Vol] 132 mg/dL High 70-100 [facility] Comment on above: Performed By: #### L AB54 #### Corduroy Cutting Supervisor: LUCINA FERRERA ([phone]) [facility] ([facility]) [address] [place] [address] Potassium [Moles/Vol] 4.4 mmol/L Normal 3.5-5.1 [facility] Comment on above: Performed By: #### L AB54 #### Corduroy Cutting Supervisor: LUCINA FERRERA ([id number]) [facility] ([facility]) [address] [place] [address] Sodium [Moles/Vol] 131 mmol/L Low 135-145 [facility] Comment on above: Performed By: #### L AB54 #### Corduroy Cutting Supervisor: LUCINA FERRERA ([phone]) [facility] ([facility]) [address] [place] [address] Urea nitrogen [Mass/Vol] 22 mg/dL High 9-20 [facility] Comment on above: Performed By: #### L AB54 #### Corduroy Cutting Supervisor: LUCINA FERRERA ([phone]) [facility] ([facility]) [address] [place] [address] Basic metabolic 1998 panelon 06-08-2023 Anion gap [Moles/Vol] 9 mmol/L 3 - 13 mmol/L [facility] Calcium [Mass/Vol] 8.7 mg/dL 8.4 - 10. 4 mg/dL [facility] Chloride [Moles/Vol] 102 mmol/L 98 - 10 7 mmol/L [facility] CO2 [Moles/Vol] 20 mmol/L Low 22 - 30 mmol/L [facility] Creatinine [Mass/Vol] 1.02 mg/dL 0.66 - 1.25 mg/dL [facility] GFR/1.73 sq M.predicted MDRD (S/P/Bld) [Vol rate/Area] 73.4 mL/min/{1.73_m2} - PINF [facility] Glucose [Mass/Vol] 132 mg/dL High 70 - 100 mg/dL [facility] Interpretation and review of laboratory results Abnormal [facility] Potassium [Moles/Vol] 4.4 mmol/L 3.5 - 5.1 mmol/L [facility] Sodium [Moles/Vol] 131 mmol/L Low 135 - 145 mmol/L [facility] Urea nitrogen [Mass/Vol] 22 mg/dL High 9 - 20 mg/dL [facility] CALCIUM, IONIZEDon CALCIUM IONIZED 4.50 mg/dL Normal 4.30-5.20 [facility] Comment on above: Order Comment: Obtai n PRN and check ionized Ca level if serum Ca level less than 8.0 Performed By: #### L AB54 #### Corduroy Cutting Supervisor: LUCINA FERRERA ([phone]) [facility] ([facility]) [address] [place] [address] PH, IONIZED CALCIUM 7.34 Normal 7.31-7.46 [facility] Comment on above: Order Comment: Obtai n PRN and check ionized Ca level if serum Ca level less than 8.0 Performed By: #### L AB54 #### [employer] Cutting Supervisor: LUCINA FERRERA ([phone]) [facility] ([facility]) [address] [place] [address] CBC (HEMOGRAM)on 06-08-2023 Erythrocyte distribution width (RBC) [Ratio] 14.3 % Normal 11.5-15.0 [facility] Comment on above: Performed By: #### L AB54 #### [employer] Cut[employer] Supervisor: LUCINA FERRERA ([phone]) [facility] ([facility]) [address] [place] [address] Hematocrit (Bld) [Volume fraction] 29.4 % Low 40.0-52.0 [facility] Comment on above: Performed By: #### L AB54 #### [employer] Cutting Supervisor: LUCINA FERRERA ([phone]) [facility] ([facility]) [address] [place] [address] Hemoglobin (Bld) [Mass/Vol] 9.8 g/dL Low 13.0-18.0 [facility] Comment on above: Performed By: #### L AB54 #### [employer] Cutting Supervisor: LUCINA FERRERA ([phone]) [facility] ([facility]) [address] [place] [address] MCH (RBC) [Entitic mass] 31.5 pg Normal 26.0-34.0 [facility] Comment on above: Performed By: #### L AB54 #### [employer] Cutting Supervisor: LUCINA FERRERA ([phone]) [facility] ([facility]) [address] [place] [address] MCHC 33.3 % Normal 30.5-36.0 [facility] Comment on above: Performed By: #### L AB54 #### [employer]du[employer] Cutting Supervisor: LUCINA FERRERA ([phone]) [facility] ([facility]) [address] [place] [address] MCV (RBC) [Entitic vol] 94.5 fL Normal 77.0-99.0 [facility] Comment on above: Performed By: #### L AB54 #### [employer]du[employer] Cutting Supervisor: LUCINA FERRERA ([phone]) [facility]) [address] [place] [address] Platelet mean volume (Bld) [Entitic vol] 9.9 fL Normal 9.0-12.7 [facility] Comment on above: Performed By: #### L AB54 #### [employer] Cutting Supervisor: LUCINA FERRERA ([phone]) [facility] ([facility]) [address] [place] [address] Platelets (Bld) [#/Vol] 151 10*3/uL Normal 140-440 [facility] Comment on above: Performed By: #### L AB54 #### [employer] Cutting Supervisor: LUCINA FERRERA ([phone]) [facility] ([facility]) [address] [place] [address] RBC (Bld) [#/Vol] 3.11 10*6/uL Low 4.40-5.90 [facility] Comment on above: Performed By: #### L AB54 #### [employer] Cutting Supervisor: LUCINA FERRERA ([phone]) [facility] ([facility]) [address] [place] [address] WBC (Bld) [#/Vol] 20.8 10*3/uL High 3.6-10.7 [facility] Comment on above: Performed By: #### L AB54 #### [employer] Supervisor: LUCINA FERRERA ([phone]) [facility] ([facility]) [address] [place] [address] CBC panel Auto (Bld)on 06-07 Erythrocyte distribution width (RBC) [Ratio] 14.3 % 11.5 - 15.0 % [facility] Hematocrit (Bld) [Volume fraction] 29.4 % Low 40.0 - 52.0 % [facility] Hemoglobin (Bld) [Mass/Vol] 9.8 g/dL Low 13.0 - 18.0 g/dL [facility] Interpretation and review of laboratory results Abnormal [facility] MCH (RBC) [Entitic mass] 31.5 pg 26. 0 - 34.0 pg [facility] MCHC (RBC) [Mass/Vol] 33.3 % 30.5 - 36.0 % [facility] MCV (RBC) [Entitic vol] 94.5 fL 77.0 - 99.0 fL [facility] Platelet mean volume (Bld) [Entitic vol] 9.9 fL 9.0 - 12.7 fL [facility] Platelets (Bld) [#/Vol] 151 10*3/uL 140 - 440 10*3/uL [facility] RBC (Bld) [#/Vol] 3.11 10*6/uL Low 4.40 - 5.9 0 10*6/uL [facility] WBC (Bld) [#/Vol] 20.8 10*3/uL High 3.6 - 10.7 10*3/uL [facility] Calcium.ionized [Moles/Vol]o n 06-08-2023 Calcium.ionized (Bld) [Moles/Vol] 4.50 mg/dL 4.30 - 5.20 mg/dL [facility] Interpretation and review of laboratory results Normal [facility] PH, IONIZED CALCIUM 7.34 7.31 - 7.46 [facility] ECG 12-LEADon 06-08-2023 ECG 12-LEAD IMPRESSION: Sinus rhythm Borderline IVCD with LAD Diffused ST elevation, consider pericarditis Recommend repeat tracing Electronically Signed On 06-08-2023 07:38:07 EDT by Jenelle Joaquin Normal [facility] Laboratory - Chemistry and C hemistry - challengeon 06-08-2023 Glucose [Mass/Vol] 148 mg/dL High 70 - 100 mg/dL [facility] Glucose [Mass/Vol] 118 mg/dL High 70 - 100 mg/dL [facility] Glucose [Mass/Vol] 133 mg/dL High 70 - 100 mg/dL [facility] Magnesium [Mass/Vol] 2.3 mg/dL 1.6 - 2 .3 mg/dL [facility] MAGNESIUMon 06-08-2023 Magnesium [Mass/Vol] 2.3 mg/dL Normal 1.6-2.3 [facility] Comment on above: Performed By: #### L AB54 #### [employer] Cutting Supervisor: LUCINA FERRERA ([phone]) [address] Magnesium [Mass/Vol]on 06-07 Interpretation and review of laboratory results Normal [facility] No Panel Informationon 06-07 Interpretation and review of laboratory results Abnormal [facility] Interpretation and review of laboratory results Abnormal [facility] Interpretation and review of laboratory results Abnormal [facility] CV EPIPHANY [facility] Radiology Study observation (narrative) [facility] Radiology Study observation (narrative) [facility] Rad[facility] Study observation (narrative) [facility] No Panel InformationOrdered By: Jenelle Joaquin on 06-08-2023 P [place] 36 degrees [facility] Work Phone: AL Interval 157 ms [facility] Work Phone: QRS [place] -31 degrees [facility] Work Phone: QRSD Interval 112 ms [facility] Work Phone: QT Interval 412 ms [facility] Work Phone: QTC Interval 451 ms [facility] Work Phone: T Wave [place] 12 degrees [facility] Work Phone: [facility] Work Phone: Progress Noteon 06-08-2023 Progress Note PHYSICAL THERAPY [facility] Treatment Note Name/MRN: Chau Barron ([id number]) Date of : 1940 Age: 82 y.o. Room/Bed: T1-116/T1-116 A Discharge Recommendation: (Currently at IP rehab level but likely will progress to home with assist, unable to assess gait due to pt being on high flow oxygen.) Equipment Needed: No Prior Level of Function ADL Assistance: Independent Ambulation Assistance: Independent Transfer Assistance: Independent Assessment Pt was limited today by high flow oxygen. O2 sats stayed 92% and above with standing activity. Reviewed sternal precautions and move within the tube Overall min assist for transfer and balance. If discharge were today would recommend IP rehab but pt is likely to progress to home with assist. Subjective Pt up in chair. Agreeable to PT. Pleasant. Issued HEP of P&C ex's. Pt currently on high flow oxygen via nasal pillows. Pain: reports sternum being sore no c/o pain on a pain scale Medical Precautions: No active isolations Proper PPE donned/doffed in accordance with facility standards. Fall Risk: Oswald Fall Risk Score: 45 (High Risk) Precautions/Restrictio ns: Sternal Precautions: No Pushing, No Pulling, No Lifting Greater Than 10 lbs Overall Cognitive Status: Exceptions - Following commands: follows one step commands consistently - Initiation: requires cues for some - Sequencing: requires cues for some Overall Orientation Status: Oriented to Place and Oriented to Person Family/Caregiver Present: none Objective Transfers/Mobility Sit to stand: Min Assist Stand to sit: Min Assist Cues to use momentum Device(s) used: none Exercises Exercises Hip Flexion: standing marches x 10 reps with UE support. seated marching x 10 reps, BLE, AROM Knee Long Arc Quad: seated x 10 reps, BLE, AROM Ankle Pumps: standing heel raises x 2 reps, with UE support Upper Extremity: P&C ex's #1-7 x 10 reps, 8&9 x 1 rep but too sore to continue. Comments: standing toe taps x 10 reps, BLE, with UE support I.S x 8 reps ~750-1000mL , cues for proper technique with fair carypver Balance: Static standing balance, CGA, Dynamic balance Min assist. Posture: good Plan Continue acute PT per plan of care. Safety/Education Safety Safety Devices in place: All fall risk precautions in place, call light within reach, left in chair, and no alarms engaged upon entry Restraints: No Education HEP, precautions, breathing, transfers Outcome Measures AM-PAC AM-PAC Inpatient Mobility Raw Score (No Stairs) : 13 JH-HLM JH-HLM Score: Static standing (1 or more minutes) Goals Patient Stated Goal: To have less pain, go home Encounter Problems Encounter Problems (Active) Cardiac Patient will perform bed mobility with CGA in order to improve independence and prepare for out of bed mobility. (Not Addressed) Start: 06/07/23 Expected End: 06/21/23 Patient will complete sit to stand transfer with CGA to none in order to improve safety and prepare for out of bed mobility. (Progressing) Start: 06/07/23 Expected End: 06/21/23 Patient will ambulate 600 feet or ambulate 5 minutes with supervision with RPE of 14 or lower. (Initiated) Start: 06/07/23 Expected End: 06/21/23 Patient will ascend and descend 4 # stairs with supervision rail for balance only. (Not Addressed) Start: 06/07/23 Expected End: 06/21/23 Patient will be independent with P&C exercises. (Progressing) Start: 06/07/23 Expected End: 06/21/23 Patient will be independent with managing secretions and home walking program. (Progressing) Start: 06/07/23 Expected End: 06/21/23 Pain - Adult Therapy Time Individual Co-treatment Time In 1332 Time Out 1357 Minutes 25 Timed Code Treatment Minutes: 25 Minutes (FA, TP) Sheree Elliott PTA [facility] Progress Note -- Attestation signed by Ying Mcintosh DO at 06/08/2023 5:21 PM I personally saw and evaluated the patient on 06/08/23. I reviewed and agree with the BELKIS?s documentation. I provided a substantive portion of the care of this patient. I personally performed the exam and MDM for this encounter as follows Assessment: mvCAD/NSTEMI now s/p CABGx4 (POD 2) Left lower lobe nodule s/p left lower lobe wedge resection Pericardial cyst s/p pericardial cyst resection Post op pulmonary management: expected post op course Acute post op blood loss anemia Mild to moderate aortic stenosis HTN/HLD DM2 with hyperglycemia (A1c 7.5) Plan: -cont HFNC, wean as able. Encourage pulm toilet, IS/acapella, progressive mobility. Responded well to lasix yesterday evening-->re-dose lasix today -weaned off pressors this morning -cont ASA, statin -insulin per endocrine recommendations -PT/OT Total critical care time for this patient with life-threatening unstable organ failure, including direct patient contact, management of life support systems, review of data including imaging and labs, and discussions with other team members and physicians at least 40 minutes so far today, excluding procedures. Cardiothoracic Surgery/CCM Progress Note PATIENT NAME: Chau Barron DATE: 06/08/23 HPI: 82 y.o. with pmHx of HLD, HTN, T2DM who was transffered from outside hospital for CABG consideration. Per paper chart brought with the patient, he developed midsternal chest pressure, coughing, burping, and sweating while riding his lawnmower. By the time the patient arrived to the ED - chest pressure had slightly improved. Cardiac enzymes were elevated and he was admitted as NSTEMI and Cardiology was consulted. Cardiac cath was then preformed which showed: Distal LM 60-70% stenosis left main bifurcating into LAD, ramus and left circumflex. LAD with ostial and proximal ~70%. Distal LAD around 95%, ostial LCx 70%, RCA large dominant , calcified with proximal RCA thrombus: JIMMY-3 flow in the RCA. He was transferred to [facility] for CABG consideration. Full workup completed at [facility], CT chest revealed lung nodule. Surgery planned for 06/06/23. Surgery/Procedure: 06/06/23: Dr. Peterson- CABGx 4 (HERNANDEZ-LAD, SVG-PDA, SVG- RAMUS, SVG-DIAG1), LLE EVH, LLL wedge resection, pericardial cyst resection Interval History: 06/08/23, POD# 02- VSS/Map stable overnight, did require increase in levo during resting hours, remains on High flow O2, he de-sats with pain and tachypnea. He is sitting up in a chair and labs stable. Current IV Drips: Levophed @ .04 Review of Systems Constitutional: Negative for chills, diaphoresis and fever. Respiratory: Negative for cough, shortness of breath and wheezing. Cardiovascular: Negative for palpitations and leg swelling. Gastrointestinal: Positive for nausea (Brief episode last night). Negative for abdominal distention, abdominal pain, constipation, diarrhea and vomiting. Neurological: Positive for dizziness, syncope and light-headedness. Objective: Last BM Date: 06/01/23 Vitals: BP: 115/56, MAP (mmHg): 74, BP Method: Automatic Heart Rate: 66 Resp: 21 Temp: 37.1 ?C (98.8 ?F), Temp Source: Temporal BMI (Calculated): 34.85 BMP: Recent Labs 06/06/23 1112 06/07/23 0015 06/07/23 0708 06/07/23 1318 06/08/23 0533 NA 138 139 -- -- 131* K 4.1 3.4* 3.6 4.6 4.4 CL 109* 106 -- -- 102 CO2 21* 20* -- -- 20* BUN 18 20 -- -- 22* CREATININE 0.82 1.11 -- -- 1.02 CALCIUM 9.7 8.8 -- -- 8.7 MG 3.7* 2.6* -- -- 2.3 PHOS 2.9 -- -- -- -- CBC: Recent Labs 06/06/23 1329 06/07/23 0015 06/08/23 0533 WBC 30.5* 27.2* 20.8* HGB 10.6* 10.8 9.8* 9.8* HCT 31.1* 29.8* 29.4* PLT 196 203 151 MCV 94.2 94.3 94.5 RDW 13.8 13.8 14.3 INR: Recent Labs 06/06/23 1112 06/07/23 0015 INR 1.6* 1.1 Physical Exam Vitals reviewed. Constitutional: General: He is not in acute distress. Appearance: He is not ill-appearing or diaphoretic. Neck: Comments: Central line. Cardiovascular: Rate and Rhythm: Normal rate and regular rhythm. Pulses: Normal pulses. Heart sounds: No murmur heard. Pulmonary: Effort: Pulmonary effort is normal. Breath sounds: No wheezing, rhonchi or rales. Abdominal: General: There is no distension. Palpations: Abdomen is soft. Tenderness: There is no abdominal tenderness. Comments: Chest tubes, dressing dry and intact. Genitourinary: Comments: [place]. Musculoskeletal: General: No swelling. Skin: General: Skin is warm and dry. Capillary Refill: Capillary refill takes less than 2 seconds. Findings: Bruising present. Comments: MSI well approximated, no redness, warmth or drainage. Neurological: G (more content not included)... Normal [facility] Vital signsOrdered By: Jessica Joaquin on 06-08-2023 Heart rate 72 /min bpm [employer] Work Phone: XR CHEST 1 VIEWon 06-08-2023 XR CHEST 1 VIEW Patient Name: CHAU SWIFT : 1940 Exam Date/Time: 06/08/2023 05:20 Procedure: XR CHEST 1 VIEW Ordering Provider: AKY KYLE Reason For Exam: Shortness of breath EXAM TYPE: RADIOLOGIC EXAMINATION, CHEST, SINGLE VIEW FRONTAL (CXR SINGLE VIEW) EXAM DATE AND TIME: 06/08/2023 5:20 AM EDT INDICATION: Respiratory distress COMPARISON: 06/07/2023 TECHNIQUE: A single frontal view of the thorax was obtained and reviewed. Special views: None. IMPRESSION: 1. Lines/Tubes/Devices/Caballero rdware: Stable projection of right jugular catheter, chest tube. Please confirm position and function of any catheters or attempted catheters clinically. 2. Lungs: Persistent interstitial prominence and lower lobe volume loss.. Limited due to portable technique. Consider follow-up with PA and lateral chest for persistent symptoms. 3. Pleura: Residual effusion. No significant pneumothorax. 4. Heart and mediastinum: Limited due to technique. 5. Upper abdomen: No acute process seen. 6. Thorax:No acute bony process Report Dictated on Electronically Signed By: Kishan Alex MD Electronically Signed Date/Time: 06/08/2023 6:29 AM EDT Normal [facility] XR Chest Single viewon 06-07 [facility] RADIOLOGY [facility] RADIOLOGY SYSTEM [facility] Radiology Study observation (narrative) [facility] XR Chest Single viewOrdered By: Kishan Alex on 06-08-2023 [facility] Work Phone: BASIC METABOLIC PANELon 05-15 Anion gap [Moles/Vol] 13 mmol/L Normal 3-13 [facility] Comment on above: Performed By: #### L AB54 #### Corduroy Cutting Supervisor: LUCINA FERRERA ([phone]) [facility] [address] [place] [address] Calcium [Mass/Vol] 8.8 mg/dL Normal 8.4-10.4 [facility] Comment on above: Performed By: #### L AB54 #### [employer] Cutting Supervisor: LUCINA FERRERA ([phone]) [facility] [address] [place] [address] [place] Chloride [Moles/Vol] 106 mmol/L Normal 98-107 [facility] Comment on above: Performed By: #### L AB54 #### [employer] Cutting Supervisor: LUCINA FERRERA ([phone]) [facility] ([facility] [address] [place] [address] CO2 [Moles/Vol] 20 mmol/L Low 22-30 [facility] Comment on above: Performed By: #### L AB54 #### Cor[employer]roy Cutting Supervisor: LUCINA FERRERA ([phone]) [facility] ([facility] [address] [place] [address] Creatinine [Mass/Vol] 1.11 mg/dL Normal 0.66-1.25 [facility] Comment on above: Performed By: #### L AB54 #### Cor[employer]roy Cutting Supervisor: LUCINA FERRERA ([phone]) [facility] ([facility]) [address] [place] [address] [place] GLOMERULAR FILTRATION RATE ML/MIN/1.73 SQ M.PREDICTED 66.3 mL/min/1.73m*2 Normal >60.0 [facility] Comment on above: Result Comment: Calc ulation based on the Chronic Kidney Disease Epidemiology Collaboration (CKD-EPI) equation refit without adjustment for race Performed By: #### L AB54 #### [employer] Cutting Supervisor: LUCINA FERRERA ([phone]) [facility] ([facility] [address] [place] [address] [place] Glucose [Mass/Vol] 164 mg/dL High 70-100 [facility] Comment on above: Performed By: #### L AB54 #### Cor[employer] Cutting Supervisor: LUCINA FERRERA ([phone]) [facility] ([facility] [address] [place] [address] [place] Potassium [Moles/Vol] 3.4 mmol/L Low 3.5-5.1 [facility] Comment on above: Performed By: #### L AB54 #### [employer] Cutting Supervisor: LUCINA [phone]) [facility] ([facility] [address] [place] [address] [place] Sodium [Moles/Vol] 139 mmol/L Normal 135-145 [facility] Comment on above: Performed By: #### L AB54 #### Cor[employer] Cutting Supervisor: LUCINA FERRERA ([phone]) [facility]) [address] [place] [address] Urea nitrogen [Mass/Vol] 20 mg/dL Normal 9-20 [facility] Comment on above: Performed By: #### L AB54 #### [employer] Cutting Supervisor: LUCINA FERRERA ([phone]) [facility]) [address] [place] [address] BLOOD GAS, VENOUSon 06-07-19 24 Base excess Calc (BldV) [Moles/Vol] -3.6000 mmol/L Low -3.0-3.0 [facility] Comment on above: Performed By: #### L AB54 #### [employer] Cutting Supervisor: LUCINA FERRERA ([phone]) [facility]) [address] [place] [address] CO2 [Moles/Vol] 23.3 mmol/L Low 24.0-28.0 [facility] Comment on above: Performed By: #### L AB54 #### Cor[employer] Cutting Supervisor: LUCINA FERRERA ([phone]) [facility]) [address] [place] [address] HCO3 (Bld) [Moles/Vol] 22.1 mmol/L Low 23.0-27.0 [facility] Comment on above: Performed By: #### L AB54 #### [employer] Cutting Supervisor: LUCINA FERRERA ([phone]) [facility]) [address] [place] [address] Hemoglobin (Bld) [Mass/Vol] 10.8 g/dL Normal Screen Only [facility] Comment on above: Performed By: #### L AB54 #### Cor[employer] Cutting Supervisor: LUCIAN FERRERA ([phone]) [facility]) [address] [place] [address] OXYGEN (MM HG) IN VENOUS BLOOD 38.8 mm Hg Normal 30.0-50.0 [facility] Comment on above: Performed By: #### L AB54 #### [employer] Cutting Supervisor: LUCINA FERRERA ([phone]) [facility]) [address] [place] [address] OXYGEN SATURATION (%) IN VENOUS BLOOD 68.3 % Normal 60.0-80.0 [facility] Comment on above: Performed By: #### L AB54 #### Cor[employer] Cutting Supervisor: LUCINA FERRERA ([phone]) [facility] ([facility]) [address] [place] [address] PCO2, MERRITT 42.2 mm Hg Normal 40.0-55.0 [facility] Comment on above: Performed By: #### L AB54 #### Cor[employer] Cutting Supervisor: LUCINA FERRERA ([phone]) [facility] ([facility]) [address] [place] [address] PH VENOUS 7.336 Normal 7.330-7.430 [facility] Comment on above: Performed By: #### L AB54 #### [employer] Cut[employer] Supervisor: LUCINA EFRRERA ([phone]) [facility] ([facility]) [address] [place] [address] SOURCE OF OXYGEN Nasal cannula Normal [facility] Comment on above: Result Comment: 5 L Performed By: #### L AB54 #### [employer] Cut[employer] Supervisor: LUCINA FERRERA ([phone]) [facility]) [address] [place] [address] Basic metabolic 1998 panelon 06-07-2023 Anion gap [Moles/Vol] 13 mmol/L 3 - 13 mmol/L [facility] Calcium [Mass/Vol] 8.8 mg/dL 8.4 - 10. 4 mg/dL [facility] Chloride [Moles/Vol] 106 mmol/L 98 - 10 7 mmol/L [facility] CO2 [Moles/Vol] 20 mmol/L Low 22 - 30 mmol/L [facility] Creatinine [Mass/Vol] 1.11 mg/dL 0.66 - 1.25 mg/dL [facility] GFR/1.73 sq M.predicted MDRD (S/P/Bld) [Vol rate/Area] 66.3 mL/min/{1.73_m2} - PINF [facility] Glucose [Mass/Vol] 164 mg/dL High 70 - 100 mg/dL [facility] Potassium [Moles/Vol] 3.4 mmol/L Low 3.5 - 5.1 mmol/L [facility] Sodium [Moles/Vol] 139 mmol/L 135 - 145 mmol/L [facility] Urea nitrogen [Mass/Vol] 20 mg/dL 9 - 20 mg/dL [facility] CBC (HEMOGRAM)on 06-07-2023 Erythrocyte distribution width (RBC) [Ratio] 13.8 % Normal 11.5-15.0 [facility] Comment on above: Performed By: #### L [id number] #### Corduroy Cutting Supervisor: LUCINA FERRERA ([phone]) [facility]) [address] [place] [address] Hematocrit (Bld) [Volume fraction] 29.8 % Low 40.0-52.0 [facility] Comment on above: Performed By: #### L [id number] #### [employer] Cutting Supervisor: LUCINA FERRERA ([phone]) [facility]) [address] [place] [address] Hemoglobin (Bld) [Mass/Vol] 9.8 g/dL Low 13.0-18.0 [facility] Comment on above: Performed By: #### L [id number] #### [employer] Cut[employer] Supervisor: LUCINA FERRERA ([phone]) [facility]) [address] [place] [address] MCH (RBC) [Entitic mass] 31.0 pg Normal 26.0-34.0 [facility] Comment on above: Performed By: #### L [id number] #### [employer] Cut[employer] Supervisor: LUCINA FERRERA ([phone]) [facility]) [address] [place] [address] MCHC 32.9 % Normal 30.5-36.0 [facility] Comment on above: Performed By: #### L [id number] #### [employer] Cutting Supervisor: LUCINA FERRERA ([phone]) [facility]) [address] [place] [address] MCV (RBC) [Entitic vol] 94.3 fL Normal 77.0-99.0 [facility] Comment on above: Performed By: #### L [id number] #### Cor[employer] Cutting Supervisor: LUCINA FERRERA ([phone]) [facility] ([facility]) [address] [place] [address] Platelet mean volume (Bld) [Entitic vol] 9.6 fL Normal 9.0-12.7 [facility] Comment on above: Performed By: #### L [id number] #### Corduroy Cutting Supervisor: LUCINA FERRERA ([phone]) [facility] ([facility]) [address] [place] [address] Platelets (Bld) [#/Vol] 203 10*3/uL Normal 140-440 [facility] Comment on above: Performed By: #### L [id number] #### [employer] Cutting Supervisor: LUCINA FERRERA ([phone]) [facility]) [address] [place] [address] RBC (Bld) [#/Vol] 3.16 10*6/uL Low 4.40-5.90 [facility] Comment on above: Performed By: #### L [id number] #### [employer] Cutting Supervisor: LUCINA FERRERA ([phone]) [facility] ([facility]) [address] [place] [address] WBC (Bld) [#/Vol] 27.2 10*3/uL High 3.6-10.7 [facility] Comment on above: Performed By: #### L [id number] #### [employer] Cutting Supervisor: LUCINA FERRERA ([phone]) [facility] ([facility]) [address] [place] [address] CBC panel Auto (Bld)on 06-06 Erythrocyte distribution width (RBC) [Ratio] 13.8 % 11.5 - 15.0 % [facility] Hematocrit (Bld) [Volume fraction] 29.8 % Low 40.0 - 52.0 % [facility] Hemoglobin (Bld) [Mass/Vol] 9.8 g/dL Low 13.0 - 18.0 g/dL [facility] Interpretation and review of laboratory results Abnormal [facility] MCH (RBC) [Entitic mass] 31.0 pg 26. 0 - 34.0 pg [facility] MCHC (RBC) [Mass/Vol] 32.9 % 30.5 - 36.0 % [facility] MCV (RBC) [Entitic vol] 94.3 fL 77.0 - 99.0 fL [facility] [employer] Platelet mean volume (Bld) [Entitic vol] 9.6 fL 9.0 - 12.7 fL [facility] Platelets (Bld) [#/Vol] 203 10*3/uL 140 - 440 10*3/uL [facility] RBC (Bld) [#/Vol] 3.16 10*6/uL Low 4.40 - 5.9 0 10*6/uL [facility] WBC (Bld) [#/Vol] 27.2 10*3/uL High 3.6 - 10.7 10*3/uL [facility] Consulton 06-07-2023 Consult Department of Rn Office al Medicine Division of Endocrinology, Diabetes, & Metabolism Endocrinology Note Patient Name: Chau Barron : 1940 AGE: 82 y.o. Room/Bed: [facility] Admission Date: 06/02/2023 Visit Date: 06/07/2023 Reason for Endocrine Consult: Postop CABG Provider/Team Requesting Consult: CTS PCP: Kishan Ford MD Outpt Mechanical Service Specialist: No ASSESSMENT: Type 2 diabetes with hyperglycemia without long-term insulin use Multivessel CAD s/p CABG Hypertension Hyperlipidemia PLAN: Start Lantus 24 units once, stop insulin drip 1 hour after dose of Lantus Start Humalog medium dose sliding scale with meals Given p.o. appetite, will hold off of starting scheduled Humalog ICU goal <180 GMF goal <150 POCT BG ACHS Hypoglycemia management per protocol Carb controlled diet ANTICIPATED ENDOCRINE HOME GOING RECOMMENDATIONS: Optimized for Discharge from Endocrine standpoint: No Home Going Endocrine Rx Recommendations-- tbd Outpt Follow Up-- PCP SUBJECTIVE/HPI: CHIEF COMPLAINT: S/P CABG Type of DM: 2 Onset of DM: 2017 Home DM Medication Regimen: Metformin XR 500 mg twice daily DM control (last A1c/glucose data): 7.5% on current admission Blood sugars on days prior to CABG were within normal limits Patient was noted to have high insulin requirements yesterday by insulin drip between 14 to 19 units/hr -insulin drip requirements today have been between 2 to 3 units/h Patient was seen at bedside with his spouse Pleasant elderly patient who is able to give a good history He endorses to following strict diet. Follows intermittent fasting for 14 to 16 hours a day Walks 2 miles every day Currently appetite has been poor. Endorses to belching/nausea No history of thyroid issues No other complaints otherwise Glucose Date/Time Value Ref Range Status 06/07/2023 08:05 AM 164 (H) 70 - 100 mg/dL Final 06/07/2023 07:08 AM 170 (H) 70 - 100 mg/dL Final 06/07/2023 06:02 AM 110 (H) 70 - 100 mg/dL Final 06/07/2023 04:58 AM 88 70 - 100 mg/dL Final 06/07/2023 03:58 AM 124 (H) 70 - 100 mg/dL Final 06/07/2023 03:08 AM 136 (H) 70 - 100 mg/dL Final Review of Systems ROS negative except for those mentioned in HPI. OBJECTIVE: Vitals: 06/07/23 0815 06/07/23 0830 06/07/23 0845 06/07/23 0853 BP: 110/56 132/58 113/60 95/56 BP Location: Patient Position: Pulse: 76 78 75 79 Resp: (!) 26 23 (!) 27 24 Temp: TempSrc: SpO2: 91% 90% 90% 90% Weight: Height: Physical Exam Vitals and nursing note reviewed. Constitutional: Appearance: Normal appearance. HENT: Head: Normocephalic and atraumatic. Cardiovascular: Rate and Rhythm: Normal rate and regular rhythm. Pulmonary: Effort: Pulmonary effort is normal. Musculoskeletal: General: Swelling present. Skin: General: Skin is warm and dry. Neurological: General: No focal deficit present. Mental Status: He is alert and oriented to person, place, and time. Psychiatric: Mood and Affect: Mood normal. Behavior: Behavior normal. 24 hour intake/output: Intake/Output Summary (Last 24 hours) at 06/07/2023 0901 Last data filed at 06/07/2023 0845 Gross per 24 hour Intake 6470.8 ml Output 2487 ml Net 3983.8 ml Diet: Adult diet Regular; 5 carb choices (75 gm/meal) Medications (as per EMR): HomeMeds: Current Outpatient Medications Medication Instructions ascorbic acid (VITAMIN C) 1,000 mg, Oral, Daily aspirin 81 mg, Oral, Daily atorvastatin (LIPITOR) 40 mg, Oral, Daily Cholecalciferol 25 mcg, Oral, Daily co-enzyme Q-10 30 mg, Oral, Daily metFORMIN (OSM) (FORTAMET) 500 mg, Oral, Daily with evening meal, Do not crush, chew, or split. niacinamide 500 mg, Oral, 2 times daily with meals valsartan (DIOVAN) 80 mg, Oral, Daily Scheduled Meds:acetaminophen, 1,000 mg, Oral, q8h albumin human, 50 g, IntraVENous, Once aspirin, 81 mg, Oral, Daily atorvastatin, 80 mg, Oral, Daily ceFAZolin, 2,000 mg, IntraVENous, q8h chlorhexidine, 15 mL, Mouth/Throat, BID heparin, 5,000 Units, SubCUTAneous, BID Lidocaine, 1 patch, Topical, Daily mupirocin, , Nasal, BID pantoprazole, 40 mg, IntraVENous, Daily polyethylene glycol (PEG) 3350, 17 g, Oral, Daily senna-docusate sodium, 2 tablet, Oral, Nightly sodium chloride 0.9%, 10 mL, IntraVENous, 2 times per day sodium chloride 0.9%, 5-40 mL, IntraCATHeter, q8h Continuous Infusions:EPINEPHrine, 0.01-0.2 mcg/kg/min, Last Rate: 0.08 mcg/kg/min (06/07/23 0812) insulin regular, 1-50 Units/hr, Last Rate: 1.5 Units/hr (06/07/23 0805) norepinephrine, 0.01-0.2 mcg/kg/min sodium chloride, 20 mL/hr, Last Rate: 20 mL/hr (06/06/23 1230) PRN Meds:PRN medications: calcium gluconate, dextrose, dextrose, EPINEPHrine, glucagon (rDNA), glucose, ipratropium-albuterol, magnesium hydroxide, magnesium sulfate OR magnesium sulfate, morphine sulfate OR morphine sulfate, naloxone, norepinephrine, ondansetron ODT OR ondansetron, oxyC (more content not included)... Normal [facility] ECG 12-LEADon 06-07-2023 ECG 12-LEAD IMPRESSION: Sinus rhythm Nonspecific intraventricular conduction delay Prolonged QT interval Electronically Signed On 06-07-2023 09:30:29 EDT by Kenia Solis Normal [facility] ECG 12-LEAD IMPRESSION: Sinus rhythm Nonspecific intraventricular conduction delay Prolonged QT interval Electronically Signed On 06-07-2023 09:21:34 EDT by Kenia Solis Normal [facility] Laboratory - Chemistry and C hemistry - challengeon 06-07-2023 Glucose [Mass/Vol] 171 mg/dL High 70 - 100 mg/dL [facility] Glucose [Mass/Vol] 145 mg/dL High 70 - 100 mg/dL [facility] Glucose [Mass/Vol] 141 mg/dL High 70 - 100 mg/dL [facility] Glucose [Mass/Vol] 138 mg/dL High 70 - 100 mg/dL [facility] Glucose [Mass/Vol] 160 mg/dL High 70 - 100 mg/dL [facility] Glucose [Mass/Vol] 162 mg/dL High 70 - 100 mg/dL [facility] Potassium [Moles/Vol] 4.6 mmol/L 3.5 - 5.1 mmol/L [facility] Glucose [Mass/Vol] 161 mg/dL High 70 - 100 mg/dL [facility] Glucose [Mass/Vol] 175 mg/dL High 70 - 100 mg/dL [facility] Glucose [Mass/Vol] 186 mg/dL High 70 - 100 mg/dL [facility] Glucose [Mass/Vol] 192 mg/dL High 70 - 100 mg/dL [facility] Glucose [Mass/Vol] 201 mg/dL High 70 - 100 mg/dL [facility] Potassium [Moles/Vol] 3.6 mmol/L 3.5 - 5.1 mmol/L [facility] Glucose [Mass/Vol] 164 mg/dL High 70 - 100 mg/dL [facility] Glucose [Mass/Vol] 170 mg/dL High 70 - 100 mg/dL [facility] Glucose [Mass/Vol] 110 mg/dL High 70 - 100 mg/dL [facility] Glucose [Mass/Vol] 88 mg/dL 70 - 100 mg/dL [facility] Glucose [Mass/Vol] 124 mg/dL High 70 - 100 mg/dL [facility] Glucose [Mass/Vol] 136 mg/dL High 70 - 100 mg/dL [facility] Glucose [Mass/Vol] 161 mg/dL High 70 - 100 mg/dL [facility] Glucose [Mass/Vol] 136 mg/dL High 70 - 100 mg/dL [facility] Magnesium [Mass/Vol] 2.6 mg/dL High 1.6 - 2 .3 mg/dL [facility] Glucose [Mass/Vol] 192 mg/dL High 70 - 100 mg/dL [facility] Laboratory - Chemistry and C hemistry - challengeOrdered By: Aixa Ballard on 06-07-2023 Base excess Calc (BldV) [Moles/Vol] -3.6000 mmol/L Low -3.0 - 3.0 mmol/L [facility] CO2 (BldV) [Partial pressure] 42.2 mm[Hg] [facility] CO2 [Moles/Vol] 23.3 mmol/L Low 24.0 - 28.0 mmol/L [facility] HCO3 (Bld) [Moles/Vol] 22.1 mmol/L Low 23.0 - 27.0 mmol/L [facility] Oxygen (BldV) [Partial pressure] 38.8 mm[Hg] [facility] pH (BldV) 7.336 [pH] 7.330 - 7.430 [facility] Laboratory - Coagulationon 0 06-07-2023 aPTT Coag (PPP) [Time] 29.1 s 20.0 - 30.5 s [facility] INR Coag (PPP) [Relative time] 1.1 {INR} 0.9 - 1.1 [facility] PT Coag (Bld) [Time] 11.9 s 9.0 - 1 2.0 s [facility] Laboratory - Hematology and Cell countsOrdered By: Aixa Ballard on 06-07-2023 Hemoglobin (Bld) [Mass/Vol] 10.8 g/dL Screen Only [facility] MAGNESIUMon 06-07-2023 Magnesium [Mass/Vol] 2.6 mg/dL High 1.6-2.3 [facility] Comment on above: Performed By: #### L [id number] #### [employer]duroy Cutting Supervisor: LUCINA FERRERA ([phone]) [facility] ([facility]) [address] [place] [address] No Panel Informationon 06-06 Interpretation and review of laboratory results Abnormal [facility] Interpretation and review of laboratory results Abnormal [facility] Interpretation and review of laboratory results Abnormal [facility] Interpretation and review of laboratory results Abnormal [facility] Interpretation and review of laboratory results Abnormal [facility] Interpretation and review of laboratory results Abnormal [facility] Interpretation and review of laboratory results Abnormal [facility] Interpretation and review of laboratory results Abnormal [facility] Interpretation and review of laboratory results Abnormal [facility] Named [facility] CV EPIPHANY [facility] P [place] 35 degrees [facility] AL Interval 144 ms [facility] QRS [place] -31 degrees [facility] QRSD Interval 116 ms [facility] QT Interval 470 ms [facility] QTC Interval 542 ms [facility] T Wave [place] 35 degrees [facility] CV EPIPHANY [facility] Interpretation and review of laboratory results Abnormal [facility] Interpretation and review of laboratory results Abnormal [facility] Interpretation and review of laboratory results Abnormal [facility] Interpretation and review of laboratory results Abnormal [facility] Interpretation and review of laboratory results Normal [facility] Interpretation and review of laboratory results Abnormal [facility] Interpretation and review of laboratory results Abnormal [facility] Interpretation and review of laboratory results Abnormal [facility] Interpretation and review of laboratory results Abnormal [facility] Interpretation and review of laboratory results Normal [facility] Interpretation and review of laboratory results Abnormal [facility] Interpretation and review of laboratory results Abnormal [facility] Radiology Study observation (narrative) [facility] Rad[facility] Study observation (narrative[facility] Study observation (narrative) [facility] Study observation (narrative[facility] Study observation (narrative) [facility] Study observation (narrative) [facility] Study observation (narrative) [facility] Study observation (narrative) [facility] Study observation (narrative) [facility] Study observation (narrative) [facility] Study observation (narrative) [facility] Radiology Study observation (narrative) [facility] Radiology Study observation (narrative) [facility] Radiology Study observation (narrative) [facility] Radiology Study observation (narrative) [facility] Radiology Study observation (narrative[facility] Radiology Study observation (narrative) [facility] Radiology Study observation (narrative) [facility] Radiology Study observation (narrative) [facility] Radiology Study observation (narrative) [facility] No Panel InformationOrdered By: Kenia Solis on 06-07-2023 P [place] 3 degrees [facility] Work Phone: AL Interval 172 ms [facility] Work Phone: QRS [place] -31 degrees [facility] Work Phone: QRSD Interval 139 ms [facility] Work Phone: QT Interval 516 ms [facility] Work Phone: QTC Interval 559 ms [facility] Work Phone: T Wave [place] 152 degrees [facility] Work Phone: [facility] Work Phone: No Panel InformationOrdered By: Aixa Ballard on 06-07-2023 Interpretation and review of laboratory results Abnormal [facility] Source Of Oxygen Nasal cannula [facility] [employer] POTASSIUMon 06-07-2023 Potassium [Moles/Vol] 4.6 mmol/L Normal 3.5-5.1 [facility] Comment on above: Performed By: #### L [id number] #### Corduroy Cutting Supervisor: LUCINA FERRERA ([phone]) [facility]) [address] [place] [address] Potassium [Moles/Vol] 3.6 mmol/L Normal 3.5-5.1 [facility] Comment on above: Order Comment: PRN p ost potassium replacement Performed By: #### L [id number] #### [employer] Cutting Supervisor: LUCINA FERRERA ([phone]) [facility]) [address] [place] [address] PROTIME AND APTTon aPTT Coag (Bld) [Time] 29.1 s Normal 20.0-30.5 [facility] Comment on above: Performed By: #### Acosta [id number] #### [employer]duroy Cutting Supervisor: LUCINA FERRERA ([phone]) [facility] ([facility]) [address] [place] [address] INR Coag (PPP) [Relative time] 1.1 {INR} Normal 0.9-1.1 [facility] Comment on above: Result Comment: Geoff mmended Anticoagulant Therapy: SEE BELOW ----- INR of 2.0 - 3.0 : - Prophylaxis of Venous Thrombosis (high-risk surgery) - Treatment of Venous Thrombosis - Treatment of Pulmonary Embolism (Includes tissue heart valves, Acute Myocardial Infarction to prevent systemic embolism, Valvular Heart Disease, and Atrial Fibrillation) ----- INR of 2.5 - 3.5 : - Mechanical Prosthetic Valves (high risk) - If oral anticoagulant therapy is used to prevent Myocardial Infarction Performed By: #### Acosta [id number] #### [employer] Cutting Supervisor: LUCINA FERRERA ([phone]) [facility] [address] [place] [address] PT Coag (PPP) [Time] 11.9 s Normal 9.0-12.0 [facility] Comment on above: Performed By: #### Acosta [id number] #### [employer] Cutting Supervisor: LUCINA FERRERA ([phone]) [facility] ([facility]) [address] [place] [address] Potassium [Moles/Vol]on 05-15 Interpretation and review of laboratory results Normal [facility] Interpretation and review of laboratory results Normal [facility] Progress Noteon 06-07-2023 Progress Note -- Attestation signed by Ying Mcintosh DO at 06/07/2023 4:46 PM I personally saw and evaluated the patient on 06/07/23. I reviewed and agree with the BELKIS?s documentation. I provided a substantive portion of the care of this patient. I personally performed the exam and MDM for this encounter as follows Physical exam: Gen: awake, up in chair, NAD, A&0x3 HEENT: no JVD CV: RRR, no murmur, chest tubes with serosanguinous drainage, dressing clean/dry/intact Lungs: CTAB, no wheezing/rhonchi/crack les, breathing unlabored Abd: soft, no distention, decreased bowel sounds Ext: no edema, no cyanosis, <2 sec cap refill, 2+ bilateral radial pulses Skin: warm/dry, no rash Assessment: mvCAD/NSTEMI now s/p CABGx4 (POD 1) Left lower lobe nodule s/p left lower lobe wedge resection Pericardial cyst s/p pericardial cyst resection Post op pulmonary management: expected post op course Acute post op blood loss anemia Mild to moderate aortic stenosis HTN/HLD DM2 with hyperglycemia (A1c 7.5) Plan: -cont supplemental 02, wean as able. Encourage pulm toilet, IS/acapella, progressive mobility -cont epi gtt, wean as able. DC arterial line as waveform does not appear accurate. If remains on pressors by end of day, will consider switching to levophed as Ficks/mixed venous 02 sats have been wnl -start ASA, statin -insulin gtt per protocol, endocrine following Total critical care time for this patient with life-threatening unstable organ failure, including direct patient contact, management of life support systems, review of data including imaging and labs, and discussions with other team members and physicians at least 40 minutes so far today, excluding procedures. Cardiothoracic Surgery/CCM Progress Note PATIENT NAME: Chau Barron DATE: 06/07/23 HPI: 82 y.o. with pmHx of HLD, HTN, T2DM who was transffered from outside hospital for CABG consideration. Per paper chart brought with the patient, he developed midsternal chest pressure, coughing, burping, and sweating while riding his lawnmower. By the time the patient arrived to the ED - chest pressure had slightly improved. Cardiac enzymes were elevated and he was admitted as NSTEMI and Cardiology was consulted. Cardiac cath was then preformed which showed: Distal LM 60-70% stenosis left main bifurcating into LAD, ramus and left circumflex. LAD with ostial and proximal ~70%. Distal LAD around 95%, ostial LCx 70%, RCA large dominant , calcified with proximal RCA thrombus: JIMMY-3 flow in the RCA. He was transferred to [facility] for CABG consideration. Full workup completed at [facility], CT chest revealed lung nodule. Surgery planned for 06/06/23. Surgery/Procedure: 06/06/23: Dr. Peterson- CABGx 4 (HERNANDEZ-LAD, SVG-PDA, SVG- RAMUS, SVG-DIAG1), LLE EVH, LLL wedge resection, pericardial cyst resection Interval History: 06/07/23, POD# 01: 50 albumin, 1L LR. Afebrile, NSR on tele, BP requiring pressor support, extubated post-op and now on 6L NC. 1L LR and 50g albumin given overnight. Patient out of bed, up to chair this AM, did have a brief moment of loss of unconsciousness? Possibly orthostatic after standing. Pain tolerable. Tolerable PO intake. Current IV Drips: Epinephrine- 0.07mcg/kg/min VBG drawn at 0015: SvO2- 68.3 Review of Systems Constitutional: Negative for chills, diaphoresis and fever. Respiratory: Negative for cough, shortness of breath and wheezing. Cardiovascular: Negative for palpitations and leg swelling. Gastrointestinal: Positive for nausea (Brief episode last night). Negative for abdominal distention, abdominal pain, constipation, diarrhea and vomiting. Neurological: Positive for dizziness, syncope and light-headedness. Objective: CT output cc/24hrs: 815 UO cc/24hrs: 903 Last BM Date: 06/01/23 Vitals: BP: (!) 87/52, MAP (mmHg): 63, BP Method: Arterial line Heart Rate: 85 Resp: (!) 26 Temp: 36.9 ?C (98.5 ?F), Temp Source: Temporal BMI (Calculated): 32.96 BMP: Recent Labs 06/05/23 0022 06/06/23 1112 06/07/23 0015 NA 138 138 139 K 4.0 4.1 3.4* CL 106 109* 106 CO2 24 21* 20* BUN 19 18 20 CREATININE 0.93 0.82 1.11 CALCIUM 9.6 9.7 8.8 MG 2.0 3.7* 2.6* PHOS -- 2.9 -- CBC: Recent Labs 06/06/23 1112 06/06/23 1113 06/06/23 1329 06/07/23 0015 WBC 13.8* -- 30.5* 27.2* HGB 9.9* < > 10.6* 10.8 9.8* HCT 29.0* -- 31.1* 29.8* PLT 158 -- 196 203 MCV 93.5 -- 94.2 94.3 RDW 13.6 -- 13.8 13.8 < > = values in this interval not displayed. INR: Recent Labs 06/06/23 1112 06/07/23 0015 INR 1.6* 1.1 Physical Exam Vitals reviewed. Constitutional: General: He is not in acute distress. Appearance: He is not ill-appearing or diaphoretic. Neck: (more content not included)... Normal [facility] Vital signsOrdered By: Kenia Solis on 06-07-2023 Heart rate 70 /min bpm [facility] [employer] Work Phone: Vital signson 06-07-2023 Heart rate 80 /min bpm [facility] Vital signsOrdered By: Beryl Ballard on 06-07-2023 Oxygen saturation in Venous blood 68.3 % 60.0 - 80.0 % [facility] XR CHEST 1 VIEWon 06-07-2023 XR CHEST 1 VIEW Patient Name: CHAU SWIFT : 1940 Exam Date/Time: 06/07/2023 17:46 Procedure: XR CHEST 1 VIEW Ordering Provider: MCINTOSH TIFFANY Reason For Exam: worsening hypoxia PORTABLE CHEST: INDICATION: Hypoxia COMPARISON: Compared to a prior study performed earlier today at 0523 hours Obtained at 1730 hours. A single portable AP radiograph of the chest was obtained. The heart is enlarged. The mediastinal silhouette is normal. There is pulmonary congestion with bilateral infiltrates and effusions. A right internal jugular central venous catheter is present with the tip overlying the superior vena cava. Postoperative changes with left-sided chest tube and mediastinal drain are noted. There is no pleural thickening. The osseous structures are unremarkable. IMPRESSION: Pulmonary congestion with bilateral infiltrates and effusions. Postoperative changes. Report Dictated on Electronically Signed By: Mauricio Sheppard DO Electronically Signed Date/Time: 06/07/2023 6:50 PM EDT Normal [facility] XR CHEST 1 VIEW [facility] 1940 [id number] Exam Date/Time: 06/07/2023 05:27 Procedure: XR CHEST 1 VIEW Ordering Provider: KAY KYLE Reason For Exam: Shortness of breath INDICATION: Shortness of breath. VIEWS: Chest portable-one image COMPARISON: 06/06/2023 FINDINGS: The trachea is midline. The cardiac silhouette is within normal limits. A mediastinal drain is present. A left chest tube is present. A right IJ vascular catheter tip overlies the superior vena cava. Median sternotomy wires and clips are present. Cardiac monitoring wires and leads are present. Interval removal of endotracheal tube and enteric tube. The trachea is midline. The cardiac silhouette is within normal limits. The lung volumes are low. There is mild thickening of the interstitium. Perihilar and lower lung patchy opacities are present. IMPRESSION: 1. Support devices, as above. 2. Mild pulmonary vascular congestion. 3. Bibasilar atelectasis. 4. No pneumothorax. Report Dictated on Electronically Signed By: Kiersten Johnson MD Electronically Signed Date/Time: 06/07/2023 7:19 AM EDT Normal [facility] XR Chest Single viewon 06-06 [facility] Radiology Study observation (narrative) Counts include 234 beds at the [facility] RADIOLOGY SYSTEM [facility] Radiology Study observation (narrative) [facility] Chest Single viewOrdered By: Mauricio Sheppard on 06-07-2023 [facility] [employer] Work Phone: XR Chest Single viewOrdered By: Kiersten Johnson on 06-07-2023 [facility] Work Phone: BASIC METABOLIC PANELon 05-15 Anion gap [Moles/Vol] 8 mmol/L Normal 3-13 [facility] Comment on above: Performed By: #### L AB54 #### [employer] Supervisor: LUCINA FERRERA ([phone]) [facility] ([facility]) [address] [place] [address] Calcium [Mass/Vol] 9.7 mg/dL Normal 8.4-10.4 [facility] Comment on above: Performed By: #### L AB54 #### [employer] Supervisor: LUCINA FERRERA ([phone]) [facility] [address] [place] [address] Chloride [Moles/Vol] 109 mmol/L High 98-107 [facility] Comment on above: Performed By: #### L AB54 #### [employer] Supervisor: LUCINA FERRERA ([phone]) [facility] ([facility]) [address] [place] [address] CO2 [Moles/Vol] 21 mmol/L Low 22-30 [facility] Comment on above: Performed By: #### L AB54 #### [employer] Supervisor: LUCINA FERRERA ([phone]) [facility] ([facility]) [address] [place] [address] Creatinine [Mass/Vol] 0.82 mg/dL Normal 0.66-1.25 [facility] Comment on above: Performed By: #### L AB54 #### [employer] Supervisor: LUCINA FERRERA ([phone]) [facility] ([facility]) [address] [place] [address] GLOMERULAR FILTRATION RATE ML/MIN/1.73 SQ M.PREDICTED 87.7 mL/min/1.73m*2 Normal >60.0 [facility] Comment on above: Result Comment: Calc ulation based on the Chronic Kidney Disease Epidemiology Collaboration (CKD-EPI) equation refit without adjustment for race ORDER COMMENTS: Slightly Hemolyzed. Interpret MAGNESIUM, PHOSPHORUS, and POTASSIUM with caution. Performed By: #### L AB54 #### [employer] Supervisor: LUCINA FERRERA ([phone]) [facility] ([facility]) [address] [place] [address] Glucose [Mass/Vol] 156 mg/dL High 70-100 [facility] Comment on above: Performed By: #### L AB54 #### [employer] Supervisor: LUCINA FERRERA ([phone]) [facility]) [address] [place] [address] Potassium [Moles/Vol] 4.1 mmol/L Normal 3.5-5.1 [facility] Comment on above: Performed By: #### L AB54 #### [employer] Supervisor: LUCINA FERRERA ([phone]) [facility] ([facility]) [address] [place] [address] [place] Sodium [Moles/Vol] 138 mmol/L Normal 135-145 [facility] Comment on above: Performed By: #### L AB54 #### [employer] Supervisor: LUCINA FERRERA ([phone]) [facility]) [address] [place] [address] Urea nitrogen [Mass/Vol] 18 mg/dL Normal 9-20 [facility] Comment on above: Performed By: #### L AB54 #### [employer] Supervisor: LUCINA FERRERA ([phone]) [facility]) [address] [place] [address] [place] BLOOD GAS ARTERIALon 024 Base excess Calc (Bld) [Moles/Vol] -1.9000 mmol/L Normal -3.0-3.0 [facility] Comment on above: Performed By: #### L AB54 #### [employer] Supervisor: LUCINA FERRERA ([phone]) [facility] ([facility]) [address] [place] [address] [place] CO2 [Moles/Vol] 24.1 mmol/L Normal 23.0-27.0 [facility] Comment on above: Performed By: #### L AB54 #### [employer] Supervisor: LUCINA FERRERA ([phone]) [facility] ([facility]) [address] [place] [address] HCO3 (Bld) [Moles/Vol] 22.9 mmol/L Normal 21.0-25.0 [facility] Comment on above: Performed By: #### L AB54 #### [employer] Supervisor: LUCINA FERRERA ([phone]) [facility] [address] [place] [address] Hemoglobin (Bld) [Mass/Vol] 10.6 g/dL Normal Screen Only [facility] Comment on above: Performed By: #### L AB54 #### [employer] Supervisor: LUCINA FERRERA ([phone]) [facility] [address] [place] [address] OXYGEN SATURATION (%) IN ARTERIAL BLOOD 98.6 % Normal 95.0-100.0 [facility] Comment on above: Performed By: #### L AB54 #### [employer] Supervisor: LUCINA FERRERA ([phone]) [facility] ([facility]) [address] [place] [address] PCO2 ARTERIAL 39.0 mm Hg Normal >35.0-<45.0 [facility] Comment on above: Performed By: #### L AB54 #### [employer] Supervisor: LUCINA FERRERA ([phone]) [facility] ([facility]) [address] [place] [address] PH ARTERIAL 7.387 Normal 7.350-7.450 [facility] Comment on above: Performed By: #### L AB54 #### [employer] Supervisor: LUCINA FERRERA ([phone]) [facility] ([facility]) [address] [place] [address] PO2 ARTERIAL 212.3 mm Hg High 80.0-100.0 [facility] Comment on above: Performed By: #### L AB54 #### [employer] Supervisor: LUCINA [phone]) [facility] ([facility]) [address] [place] [address] SOURCE OF OXYGEN Vent Normal [facility] Comment on above: Performed By: #### L AB54 #### [employer] Supervisor: LUCINA FERRERA ([phone]) [facility] ([facility]) [address] [place] [address] Basic metabolic 1998 panelon 06-06-2023 Anion gap [Moles/Vol] 8 mmol/L 3 - 13 mmol/L [facility] Calcium [Mass/Vol] 9.7 mg/dL 8.4 - 10. 4 mg/dL [facility] Chloride [Moles/Vol] 109 mmol/L High 98 - 10 7 mmol/L [facility] CO2 [Moles/Vol] 21 mmol/L Low 22 - 30 mmol/L [facility] Creatinine [Mass/Vol] 0.82 mg/dL 0.66 - 1.25 mg/dL [facility] GFR/1.73 sq M.predicted MDRD (S/P/Bld) [Vol rate/Area] 87.7 mL/min/{1.73_m2} - PINF [facility] Glucose [Mass/Vol] 156 mg/dL High 70 - 100 mg/dL [facility] Potassium [Moles/Vol] 4.1 mmol/L 3.5 - 5.1 mmol/L [facility] Sodium [Moles/Vol] 138 mmol/L 135 - 145 mmol/L [facility] Urea nitrogen [Mass/Vol] 18 mg/dL 9 - 20 mg/dL [facility] CALCIUM, IONIZEDon CALCIUM IONIZED 4.30 mg/dL Normal 4.30-5.20 [facility] Comment on above: Performed By: #### L AB54 #### [employer] Supervisor: LUCINA FERRERA ([phone]) [facility] [address] [place] [address] PH, IONIZED CALCIUM 7.43 Normal 7.31-7.46 [facility] Comment on above: Performed By: #### L AB54 #### [employer] Supervisor: LUCINA FERRERA ([phone]) [facility] [address] [place] [address] CBC (HEMOGRAM)on 06-06-2023 Erythrocyte distribution width (RBC) [Ratio] 13.8 % Normal 11.5-15.0 [facility] Comment on above: Performed By: #### L AB54 #### [employer] Supervisor: LUCINA FERRERA ([phone]) [facility] ([facility]) [address] [place] [address] Hematocrit (Bld) [Volume fraction] 31.1 % Low 40.0-52.0 [facility] Comment on above: Performed By: #### L AB54 #### [employer] Supervisor: LUCINA FERRERA ([phone]) [facility]) [address] [place] [address] Hemoglobin (Bld) [Mass/Vol] 10.6 g/dL Low 13.0-18.0 [facility] Comment on above: Performed By: #### L AB54 #### [employer] Supervisor: LUCINA FERRERA ([phone]) [facility] ([facility]) [address] [place] [address] MCH (RBC) [Entitic mass] 32.1 pg Normal 26.0-34.0 [facility] Comment on above: Performed By: #### L AB54 #### [employer] Supervisor: LUCINA FERRERA ([phone]) [facility]) [address] [place] [address] MCHC 34.1 % Normal 30.5-36.0 [facility] Comment on above: Performed By: #### L AB54 #### [employer] Supervisor: LUCINA FERRERA ([phone]) [facility] ([facility]) [address] [place] [address] MCV (RBC) [Entitic vol] 94.2 fL Normal 77.0-99.0 [facility] Comment on above: Performed By: #### L AB54 #### [employer] Supervisor: LUCINA FERRERA ([phone]) [facility] ([facility]) [address] [place] [address] Platelet mean volume (Bld) [Entitic vol] 9.5 fL Normal 9.0-12.7 [facility] Comment on above: Performed By: #### L AB54 #### [employer] Supervisor: LUCINA FERRERA ([phone]) [facility]) [address] [place] [address] Platelets (Bld) [#/Vol] 196 10*3/uL Normal 140-440 [facility] Comment on above: Performed By: #### L AB54 #### [employer] Supervisor: LUCINA FERRERA ([phone]) [facility]) [address] [place] [address] RBC (Bld) [#/Vol] 3.30 10*6/uL Low 4.40-5.90 [facility] Comment on above: Performed By: #### L AB54 #### [employer] Supervisor: LUCINA FERRERA ([phone]) [facility]) [address] [place] [address] WBC (Bld) [#/Vol] 30.5 10*3/uL Critically high 3.6-10.7 [facility] Comment on above: Performed By: #### L AB54 #### [employer] Supervisor: LUCINA FERRERA ([phone]) [facility]) [address] [place] [address] Erythrocyte distribution width (RBC) [Ratio] 13.6 % Normal 11.5-15.0 [facility] Comment on above: Performed By: #### L AB54 #### [employer] Supervisor: LUCINA FERRERA ([phone]) [facility]) [address] [place] [address] Hematocrit (Bld) [Volume fraction] 29.0 % Low 40.0-52.0 [facility] Comment on above: Performed By: #### L AB54 #### [employer] Supervisor: LUCINA FERRERA ([phone]) [facility]) [address] [place] [address] Hemoglobin (Bld) [Mass/Vol] 9.9 g/dL Low 13.0-18.0 [facility] Comment on above: Performed By: #### L AB54 #### [employer] Supervisor: LUCINA FERRERA ([phone]) [facility] ([facility]) [address] [place] [address] MCH (RBC) [Entitic mass] 31.9 pg Normal 26.0-34.0 [facility] Comment on above: Performed By: #### L AB54 #### [employer] Supervisor: LUCINA FERRERA ([phone]) [facility]) [address] [place] [address] MCHC 34.1 % Normal 30.5-36.0 [facility] Comment on above: Performed By: #### L AB54 #### [employer] Supervisor: LUCINA FERRERA ([phone]) [facility]) [address] [place] [address] MCV (RBC) [Entitic vol] 93.5 fL Normal 77.0-99.0 [facility] Comment on above: Performed By: #### L AB54 #### [employer] Supervisor: LUCINA FERRERA ([phone]) [facility] ([facility]) [address] [place] [address] Platelet mean volume (Bld) [Entitic vol] 9.7 fL Normal 9.0-12.7 [facility] Comment on above: Performed By: #### L AB54 #### [employer] Supervisor: LUCINA FERRERA ([phone]) [facility]) [address] [place] [address] [place] Platelets (Bld) [#/Vol] 158 10*3/uL Normal 140-440 [facility] Comment on above: Performed By: #### L AB54 #### [employer] Supervisor: LUCINA FERRERA ([phone]) [facility]) [address] [place] [address] RBC (Bld) [#/Vol] 3.10 10*6/uL Low 4.40-5.90 [facility] Comment on above: Performed By: #### L AB54 #### [employer] Supervisor: LUCINA FERRERA ([phone]) [facility] ([facility]) [address] [place] [address] WBC (Bld) [#/Vol] 13.8 10*3/uL High 3.6-10.7 [facility] Comment on above: Performed By: #### L AB54 #### [employer] Supervisor: LUCINA FERRERA ([phone]) [facility] [address] [place] [address] CBC panel Auto (Bld)Ordered By: Tasia Marrero on 06-06-2023 Erythrocyte distribution width (RBC) [Ratio] 13.8 % 11.5 - 15.0 % [facility] Hematocrit (Bld) [Volume fraction] 31.1 % Low 40.0 - 52.0 % [facility] Hemoglobin (Bld) [Mass/Vol] 10.6 g/dL Low 13.0 - 18.0 g/dL [facility] Interpretation and review of laboratory results Abnormal [facility] MCH (RBC) [Entitic mass] 32.1 pg 26. 0 - 34.0 pg [facility] MCHC (RBC) [Mass/Vol] 34.1 % 30.5 - 36.0 % [facility] MCV (RBC) [Entitic vol] 94.2 fL 77.0 - 99.0 fL [facility] Platelet mean volume (Bld) [Entitic vol] 9.5 fL 9.0 - 12.7 fL [facility] Platelets (Bld) [#/Vol] 196 10*3/uL 140 - 440 10*3/uL [facility] RBC (Bld) [#/Vol] 3.30 10*6/uL Low 4.40 - 5.9 0 10*6/uL [facility] WBC (Bld) [#/Vol] 30.5 10*3/uL Critically high 3.6 - 1 0.7 10*3/uL [facility] CBC panel Auto (Bld)Ordered By: Jonny Cheung on 06-06-2023 Erythrocyte distribution width (RBC) [Ratio] 13.6 % 11.5 - 15.0 % [facility] Hematocrit (Bld) [Volume fraction] 29.0 % Low 40.0 - 52.0 % [facility] Hemoglobin (Bld) [Mass/Vol] 9.9 g/dL Low 13.0 - 18.0 g/dL [facility] Interpretation and review of laboratory results Abnormal [facility] MCH (RBC) [Entitic mass] 31.9 pg 26. 0 - 34.0 pg [facility] MCHC (RBC) [Mass/Vol] 34.1 % 30.5 - 36.0 % [facility] MCV (RBC) [Entitic vol] 93.5 fL 77.0 - 99.0 fL [facility] Platelet mean volume (Bld) [Entitic vol] 9.7 fL 9.0 - 12.7 fL [facility] Platelets (Bld) [#/Vol] 158 10*3/uL 140 - 440 10*3/uL [facility] RBC (Bld) [#/Vol] 3.10 10*6/uL Low 4.40 - 5.9 0 10*6/uL [facility] WBC (Bld) [#/Vol] 13.8 10*3/uL High 3.6 - 10.7 10*3/uL [facility] Calcium.ionized [Moles/Vol]o n 06-06-2023 Calcium.ionized (Bld) [Moles/Vol] 4.30 mg/dL 4.30 - 5.20 mg/dL [facility] Interpretation and review of laboratory results Normal [facility] PH, IONIZED CALCIUM 7.43 7.31 - 7.46 [facility] [employer] Consulton 06-06-2023 Consult -- Attestation signed by Ying Mcintosh DO at 06/06/2023 3:40 PM I personally saw and evaluated the patient on 06/06/23. I reviewed and agree with the BELKIS?s documentation. I provided a substantive portion of the care of this patient. I personally performed the exam and MDM for this encounter as follows Physical exam: Gen: intubated, sedated, no apparent distress HEENT: +ETT, no JVD CV: RRR, no murmur, +CT with serosanguinous drainage Lungs: CTAB, no wheezing/rhonchi/crack les, breathing unlabored Abd: soft, no distention, absent breath sounds Ext: no edema, no cyanosis, <2 sec cap refill, 2+ bilateral radial pulses Skin: warm/dry, no rash Assessment: mvCAD/NSTEMI now s/p CABGx4 (POD 0) Left lower lobe nodule s/p left lower lobe wedge resection Pericardial cyst s/p pericardial cyst resection Post op pulmonary management: expected post op course Acute post op blood loss anemia Mild to moderate aortic stenosis HTN/HLD DM2 with hyperglycemia (A1c 7.5) Plan: -cont mech vent, wean as able. Sugammadex x1. SBT once appropriate/awake -monitor chest tube output, monitor CBC/coags -optimize pain control -monitor hemodynamics via Ficks/VBG. Currently on low dose epinephrine gtt at 0.04 mcg/kg/min to maintain MAP -insulin gtt per protocol, endocrine consult pending Total critical care time for this patient with life-threatening unstable organ failure, including direct patient contact, management of life support systems, review of data including imaging and labs, and discussions with other team members and physicians at least 34 minutes so far today, excluding procedures. [facility]: Critical Care Consultation Note Date: 06/06/23 PATIENT NAME: Chau Barron : 1940 (82 y.o.) Reason for Consult: Critical Care & Vent Management HPI: 82 y.o. with pmHx of HLD, HTN, T2DM who was transffered from outside hospital for CABG consideration. Per paper chart brought with the patient, he developed midsternal chest pressure, coughing, burping, and sweating while riding his lawnmower. By the time the patient arrived to the ED - chest pressure had slightly improved. Cardiac enzymes were elevated and he was admitted as NSTEMI and Cardiology was consulted. Cardiac cath was then preformed which showed: Distal LM 60-70% stenosis left main bifurcating into LAD, ramus and left circumflex. LAD with ostial and proximal ~70%. Distal LAD around 95%, ostial LCx 70%, RCA large dominant , calcified with proximal RCA thrombus: JIMMY-3 flow in the RCA. He was transferred to [facility] for CABG consideration. Full workup completed at [facility], CT chest revealed lung nodule. Surgery planned for 06/06/23. Surgery: 06/06/23: Dr. Peterson- CABGx 4 (HERNANDEZ-LAD, SVG-PDA, SVG- RAMUS, SVG-DIAG1), LLE EVH, LLL wedge resection, pericardial cyst resection Interval History: 06/06/23: POD #0: Patient arrived to the unit, intubated and sedated. Surgical hand off completed below. Surgery Hand Off: Arrival Time in CTVICU: 1150 Complications/Pertinen t Events: Last Paralytic: Medications given in route: Gtts OR report Epinephrine: 0.03mcg/kg/min Propofol: 40mcg/kg/min Insulin: off Amicar: 29 Current gtts upon arrival Epinephrine: 0.03mcg/kg/min Propofol: 40mcg/kg/min Insulin: off Amicar: 29 Devices: Epicardial wires: yes [x] no [] IABP: yes [] no [x] LVAD: yes [] no [x] Speed: Equipment: Back up controller yes [] no [x] Blood Transfusions Intra Op: yes [] no [x] Cell[employer]: Yes Vital Signs including Cardiac Numbers (if indicated) at Conclusion of Hand-off OR CTVICU CO NO SWAN CI CVP SVR PAP Additional Interventions/Misc during Handoff Bigeminy/bradycardia coming off pump, needing paced- now NSR on arrival to room. Review of Systems Unable to perform ROS: Intubated Allergies: Patient has no known allergies. Past Medical History: has a past medical history of Coronary artery disease, Diabetes mellitus (HCC), Hypercholesteremia, and Hypertension. Past Surgical History: has a past surgical history that includes Implant. Social History: reports that he has never smoked. He has never used smokeless tobacco. Family History: family history is not on file. Medications: Prior to Admission medications Medication Sig Start Date End Date Taking? Authorizing Provider ascorbic acid (Vitamin C) 1000 MG tablet Take 1,000 mg by mouth daily. Historical Provider, aspirin 81 MG EC tablet Take 81 mg by mouth daily. Historical Provider, atorvastatin (Lipitor) 40 MG tablet Take 40 mg by mouth daily. Historical Provider, Cholecalciferol 25 MCG (1000 UT) chewable tablet Chew 25 mcg daily. Historical Provider, co-e (more content not included)... Normal [facility] FIBRINOGENon 06-06-2023 FIBRINOGEN 286 mg/dL Normal 200-400 [facility] Comment on above: Performed By: #### L AB54 #### [employer] Supervisor: LUCINA FERRERA ([phone]) [facility] ([facility]) [address] [place] [address] Fibrinogen Coag (PPP) [Mass/ Vol]on 06-06-2023 Interpretation and review of laboratory results Normal [facility] [facility] - Chemistry and C hemistry - challengeon 06-06-2023 Glucose [Mass/Vol] 188 mg/dL High 70 - 100 mg/dL [facility] Glucose [Mass/Vol] 197 mg/dL High 70 - 100 mg/dL [facility] Glucose [Mass/Vol] 198 mg/dL High 70 - 100 mg/dL [facility] Glucose [Mass/Vol] 207 mg/dL High 70 - 100 mg/dL [facility] Glucose [Mass/Vol] 211 mg/dL High 70 - 100 mg/dL [facility] Glucose [Mass/Vol] 209 mg/dL High 70 - 100 mg/dL [facility] Glucose [Mass/Vol] 265 mg/dL High 70 - 100 mg/dL [facility] Glucose [Mass/Vol] 268 mg/dL High 70 - 100 mg/dL [facility] Glucose [Mass/Vol] 254 mg/dL High 70 - 100 mg/dL [facility] Glucose [Mass/Vol] 218 mg/dL High 70 - 100 mg/dL [facility] Glucose [Mass/Vol] 201 mg/dL High 70 - 100 mg/dL [facility] Glucose [Mass/Vol] 162 mg/dL High 70 - 100 mg/dL [facility] Magnesium [Mass/Vol] 3.7 mg/dL High 1.6 - 2 .3 mg/dL [facility] Laboratory - Chemistry and C hemistry - challengeOrdered By: Carmen Mayes on 06-06-2023 Base excess Calc (Bld) [Moles/Vol] -1.9000 mmol/L -3.0 - 3.0 mmol/L [facility] CO2 (Bld) [Partial pressure] 39.0 mm[Hg] - PINF [facility] CO2 [Moles/Vol] 24.1 mmol/L 23.0 - 27.0 mmol/L [facility] HCO3 (Bld) [Moles/Vol] 22.9 mmol/L 21.0 - 25.0 mmol/L [facility] Oxygen (Bld) [Partial pressure] 212.3 mm[Hg] High [facility] pH (Bld) 7.387 [pH] 7.350 - 7.450 [facility] Laboratory - Coagulationon 0 06-06-2023 aPTT Coag (PPP) [Time] 30.1 s 20.0 - 30.5 s [facility] Fibrinogen Coag (PPP) [Mass/Vol] 286 mg/dL 200 - 400 mg/dL [facility] INR Coag (PPP) [Relative time] 1.6 {INR} High 0.9 - 1.1 [facility] PT Coag (Bld) [Time] 16.6 s High 9.0 - 1 2.0 s [facility] Laboratory - Hematology and Cell countsOrdered By: Carmen Mayes on 06-06-2023 Hemoglobin (Bld) [Mass/Vol] 10.6 g/dL Screen Only [facility] MAGNESIUMon 06-06-2023 Magnesium [Mass/Vol] 3.7 mg/dL High 1.6-2.3 [facility] Comment on above: Performed By: #### L [id number] #### [employer] Supervisor: LUCINA FERRERA ([phone]) [facility] ([facility]) [address] [place] [address] No Panel Informationon 06-05 Interpretation and review of laboratory results Abnormal Formerly [facility] Interpretation and review of laboratory results Abnormal [facility] Interpretation and review of laboratory results Abnormal [facility] Interpretation and review of laboratory results Abnormal [facility] Interpretation and review of laboratory results Abnormal [facility] Interpretation and review of laboratory results Abnormal [facility] Interpretation and review of laboratory results Abnormal [facility] Interpretation and review of laboratory results Abnormal [facility] Interpretation and review of laboratory results Abnormal [facility] Interpretation and review of laboratory results Abnormal [facility] Interpretation and review of laboratory results Abnormal [facility] Interpretation and review of laboratory results Abnormal [facility] Interpretation and review of laboratory results Abnormal [facility] Interpretation and review of laboratory results Abnormal [facility] Radiology Study observation (narrative) [facility] Radiology Study observation (narrative) [facility] Radiology Study observation (narrative) [facility] Radiology Study observation (narrative) [facility] Radiology Study observation (narrative) [facility] Radiology Study observation (narrative) [facility] Radiology Study observation (narrative) [facility] Radiology Study observation (narrative) [facility] Radiology Study observation (narrative) [facility] Radiology Study observation (narrative) [facility] Radiology Study observation (narrative) [facility] No Panel InformationOrdered By: Carmen Mayes on 06-06-2023 Interpretation and review of laboratory results Abnormal [facility] Source Of Oxygen Vent [facility] PHOSPHORUSon 06-06-2023 Phosphate [Mass/Vol] 2.9 mg/dL Normal 2.5-4.5 [facility] Comment on above: Performed By: #### L AB54 #### [employer] Supervisor: LUCINA FERRERA ([phone]) [facility] ([facility]) [address] [place] [address] PROTIME AND APTTon aPTT Coag (Bld) [Time] 30.1 s Normal 20.0-30.5 [facility] Comment on above: Performed By: #### L AB54 #### [employer] Supervisor: LUCINA FERRERA ([phone]) [facility] ([facility]) [address] [place] [address] INR Coag (PPP) [Relative time] 1.6 {INR} High 0.9-1.1 [facility] [employer] [facility] Comment on above: Result Comment: Geoff mmended Anticoagulant Therapy: SEE BELOW ----- INR of 2.0 - 3.0 : - Prophylaxis of Venous Thrombosis (high-risk surgery) - Treatment of Venous Thrombosis - Treatment of Pulmonary Embolism (Includes tissue heart valves, Acute Myocardial Infarction to prevent systemic embolism, Valvular Heart Disease, and Atrial Fibrillation) ----- INR of 2.5 - 3.5 : - Mechanical Prosthetic Valves (high risk) - If oral anticoagulant therapy is used to prevent Myocardial Infarction Performed By: #### L AB54 #### [employer] Supervisor: LUCINA FERRERA ([phone]) [facility] [employer] [facility] ([facility]) [address] [place] [address] PT Coag (PPP) [Time] 16.6 s High 9.0-12.0 [facility] [employer] [facility] Comment on above: Performed By: #### L AB54 #### [employer] Supervisor: LUCINA FERRERA ([phone]) [facility] [employer] [facility] ([facility]) [address] [place] [address] Phosphate [Moles/Vol]on 05-15 Interpretation and review of laboratory results Normal [facility]™ Phosphate [Mass/Vol] 2.9 mg/dL 2.5 - 4 .5 mg/dL [facility]™ Progress Noteon 06-06-2023 Progress Note 06/06/23 1315 Patient Parameters Heart Rate 70 Resp 21 SpO2 99 % Settings Vent Mode SPONT Spontaneous Type TC FiO2 (%) 30 % PEEP/CPAP (cm H2O) 8 cm H20 Sensitivity 3 Expiratory Sensitivity (%) 25 % % Support 100 % Readings PIP Observed (cm H2O) 12 cm H2O MAP (cm H2O) 9.2 Resp Rate Observed 23 Vt (observed, mL) 306 mL Minute Ventilation (L/min) 8.61 L/min I:E Ratio 1:2.4 Plateau Pressure (cm H2O) 0 cm H2O Dynamic Compliance (L/cm H2O) 200 L/cm H2O Static Compliance (L/cm H2O) 0 Airway Resistance 3 Total PEEP (cm H2O) 0 cm H2O Alarms High RR Alarm 35 breaths per minute Insp Pressure High (cm H2O) 40 cm H2O MV High (L/min) 15 L/min MV Low (L/min) 2 L/min Vt High (betty) (mL) 900 mL Vt Low (betty) (mL) 200 mL Vt High (spont) (mL) 900 mL Vt Low (spont) (mL) 200 mL High VTi 1300 Apnea Interval (sec) 20 seconds Wean Screen Safety Screen Spontaneous Breathing Trial (SBT) Proceed with SBT - No exclusion criteria met Spontaneous Breathing Trial Weaning Start Time 1315 Weaning Tidal Volume 415 mL Weaning Respiratory Rate 23 Spontaneous Minute Volume (MV) 9.6 Total RSBI 55 Weaning Tolerance Good Weaning Stop Time 1405 Weaning Duration (min) 45 Spontaneous Breathing Trial (SBT) Outcome SBT Passed PT extubated to nasal cannula Normal [facility] [employer] [facility] US Heart TransesophagealOrde red By: Hermelindo Zamora on 06-06-2023 Aortic Sinus Valsalva 4.3 cm [facility] [employer] Work Phone: Aortic Sinus Valsalva Index 1.74 cm/m2 [facility] [employer] Work Phone: Ascending Aorta 3.9 [facility] Work Phone: Ascending Aorta Index 1.58 cm/m2 [facility] [employer] Work Phone: AV Area by Planimetry 1.5 cm2 [facility] Work Phone: [phone] AV Mean Gradient 9 mmHg [facility] Work Phone: [phone] AV Peak Gradient 32 mmHg [facility] Work Phone: AV Peak Velocity 2.2 m/s [facility] Work Phone: AV VTI 51.0 cm [facility] Health Work Phone: [phone] BERTHA/BSA 0.61 cm2/m2 [facility] [employer] Work Phone: [phone] LVOT Area 4.5 cm2 [facility] [employer] Work Phone: LVOT Diameter 2.4 cm [facility] Work Phone: LVOT Stroke Volume Index 27.5 mL/m2 [facility] [employer] Work Phone: LVOT SV 67.8 ml [facility] [employer] Work Phone: LVOT VTI 15.0 cm [facility] [employer] Work Phone: LVOT:AV VTI Index 0.29 [facility]alt Work Phone: Sinotubular Junction 3.2 cm [facility] [employer] Work Phone: [facility] [employer] Work Phone: US Heart Transesophagealon 0 06-06-2023 CV CPACS HEMO XR CHEST 1 VIEWon 06-06-2023 XR CHEST 1 VIEW Patient Name: CHAU SWIFT : 1940 [facility]#: [id number] Exam Date/Time: 06/06/2023 12:35 Procedure: XR CHEST 1 VIEW Ordering Provider: KAY KYLE Reason For Exam: Post op open heart surgery CLINICAL INDICATION: Post op open heart surgery COMPARISON: 06/05/2023 TECHNIQUE: Single portable AP radiograph of the chest. FINDINGS: LUNGS/PLEURA:There are mild left basilar opacities increased compared to 06/05/2023. Right lung is clear. Trachea is midline. No pneumothorax is visualized however the lung apices are excluded on this examination. MEDIASTINUM:Heart size and mediastinal contours are normal. VASCULARITY: Normal BONES:Unremarkable SUPPORT LINES: Right-sided central line terminates within the mid SVC. Tip of enteric tube overlies the body of stomach. Endotracheal tube terminates approximately 8.1 cm above the prashant. Left basilar chest tube in place as well as a mediastinal drain are in place. OTHER: IMPRESSION: Mild left basilar opacities increased compared to 06/05/2023. Lung apices are excluded on this examination. No pneumothorax visualized. Report Dictated on Electronically Signed By: Go Santos MD Electronically Signed Date/Time: 06/06/2023 12:55 PM EDT Normal [facility] XR Chest Single viewon 06-05 [facility] RADI[facility] SYSTEM [facility] Radiology Study observation (narrative) [facility] XR Chest Single viewOrdered By: Dilma Santos on 06-06-2023 [facility] [employer] Work Phone: ABO and Rh group Confirm Nom (Bld)on 06-05-2023 ABO group Nom (Bld) O [facility] [employer] D Ag Ql (RBC) Negative [facility] APTTon 06-05-2023 aPTT Coag (Bld) [Time] 53.1 s High 20.0-30.5 [facility] Comment on above: Result Comment: AZAR Unger COMMENTS: NOTE: The therapeutic time for Heparin anticoagulation, based on Xa activity inhibition, is an APTT of 46-80 seconds. Performed By: #### L AB54 #### [employer] Supervisor: LUCINA FERRERA ([phone]) [facility] [address] [place] [address] aPTT Coag (Bld) [Time] 58.7 s High 20.0-30.5 [facility] Comment on above: Result Comment: AZAR Unger COMMENTS: NOTE: The therapeutic time for Heparin anticoagulation, based on Xa activity inhibition, is an APTT of 46-80 seconds. Performed By: #### L AB325 ####[employer] Supervisor: LUCINA FERRERA ([phone])[facility] [place] [address] BASIC METABOLIC PANELon 05-15 Anion gap [Moles/Vol] 9 mmol/L Normal 3-13 [facility] Comment on above: Performed By: #### L AB54 #### [employer] Supervisor: LUCINA FERRERA ([phone]) [facility] ([facility]) [address] [place] [address] Calcium [Mass/Vol] 9.6 mg/dL Normal 8.4-10.4 [facility] Comment on above: Performed By: #### L AB54 #### [employer] Supervisor: LUCINA FERRERA ([phone]) [facility] [address] [place] [address] Chloride [Moles/Vol] 106 mmol/L Normal 98-107 [facility] Comment on above: Performed By: #### L AB54 #### [employer] Supervisor: LUCINA FERRERA ([phone]) [facility] [address] [place] [address] CO2 [Moles/Vol] 24 mmol/L Normal 22-30 [facility] Comment on above: Performed By: #### L AB54 #### [employer] Supervisor: LUCINA FERRERA ([phone]) [facility]) [address] [place] [address] Creatinine [Mass/Vol] 0.93 mg/dL Normal 0.66-1.25 [facility] Comment on above: Performed By: #### L AB54 #### [employer] Supervisor: LUCINA FERRERA ([phone]) [facility]) [address] [place] [address] GLOMERULAR FILTRATION RATE ML/MIN/1.73 SQ M.PREDICTED 82.0 mL/min/1.73m*2 Normal >60.0 [facility] Comment on above: Result Comment: Calc ulation based on the Chronic Kidney Disease Epidemiology Collaboration (CKD-EPI) equation refit without adjustment for race Performed By: #### L AB54 #### [employer] Supervisor: LUCINA FERRERA ([phone]) [facility] ([facility]) [address] [place] [address] [place] Glucose [Mass/Vol] 126 mg/dL High 70-100 [facility] Comment on above: Performed By: #### L AB54 #### [employer] Supervisor: LUCINA FERRERA ([phone]) [facility]) [address] [place] [address] Potassium [Moles/Vol] 4.0 mmol/L Normal 3.5-5.1 [facility] Comment on above: Performed By: #### L AB54 #### [employer] Supervisor: LUCINA FERRERA ([phone]) [facility]) [address] [place] [address] [place] Sodium [Moles/Vol] 138 mmol/L Normal 135-145 [facility] Comment on above: Performed By: #### L AB54 #### [employer] Supervisor: LUCINA FERRERA ([phone]) [facility]) [address] [place] [address] [place] Urea nitrogen [Mass/Vol] 19 mg/dL Normal 9-20 [facility] Comment on above: Performed By: #### L AB54 #### [employer] Supervisor: LUCINA FERRERA ([phone]) [facility] ([facility]) [address] [place] [address] BLOOD TYPE AND SCREEN GELon 06-05-2023 ABO GROUPING O Normal [facility] Comment on above: Order Comment: Obtai n PRN and check ionized Ca level if serum Ca level less than 8.0 Performed By: #### L AB54 #### [employer]ting Supervisor: LUCINA FERRERA ([phone]) [facility] ([facility]) [address] [place] [address] RH TYPE IN BLOOD Negative Normal [facility] Comment on above: Order Comment: Obtai n PRN and check ionized Ca level if serum Ca level less than 8.0 Performed By: #### L AB54 #### [employer]ting Supervisor: LUCINA FERRERA ([phone]) [facility] ([facility]) [address] [place] [address] Basic metabolic 1998 panelon 06-05-2023 Anion gap [Moles/Vol] 9 mmol/L 3 - 13 mmol/L [facility] Calcium [Mass/Vol] 9.6 mg/dL 8.4 - 10. 4 mg/dL [facility] Chloride [Moles/Vol] 106 mmol/L 98 - 10 7 mmol/L [facility] CO2 [Moles/Vol] 24 mmol/L 22 - 30 mmol/L [facility] Creatinine [Mass/Vol] 0.93 mg/dL 0.66 - 1.25 mg/dL [facility] GFR/1.73 sq M.predicted MDRD (S/P/Bld) [Vol rate/Area] 82.0 mL/min/{1.73_m2} - PINF [facility] th Glucose [Mass/Vol] 126 mg/dL High 70 - 100 mg/dL [facility] Interpretation and review of laboratory results Abnormal [facility] Potassium [Moles/Vol] 4.0 mmol/L 3.5 - 5.1 mmol/L [facility] Sodium [Moles/Vol] 138 mmol/L 135 - 145 mmol/L [facility] Urea nitrogen [Mass/Vol] 19 mg/dL 9 - 20 mg/dL [facility] Blood type and Crossmatch denzel vera (Bld)on 06-05-2023 ABO group Nom (Bld) O [facility] [employer] Blood group antibody screen GEL Ql Negative [facility]™ D Ag Ql (RBC) Negative [facility] [employer] CALCIUM, IONIZEDon CALCIUM IONIZED 4.50 mg/dL Normal 4.30-5.20 [facility] Comment on above: Performed By: #### L AB54 #### [employer] Supervisor: LUCINA FERRERA ([phone]) [facility] ([facility]) [address] [place] [address] PH, IONIZED CALCIUM 7.40 Normal 7.31-7.46 [facility] Comment on above: Performed By: #### L AB54 #### [employer] Supervisor: LUCINA FERRERA ([phone]) [facility] ([facility]) [address] [place] [address] CARECOORDon 06-05-2023 [place] Care Managment Initi al Assessment Date: 06/05/2023 Patient Name: Chau Barron : 1940 Patient Information Source of Information: Patient Cognition/Language: WFL - Within Functional Limits Permission given to speak with patient sales representative consultant/caregiv er as indicated: Confirmation of Payer with patient/family: Yes Payer Name: Medicare and [place]: No Confirmation of Primary Care Physician: Confirmed PCP Name: Dr. Ford Seen in last 2 years?: Yes Primary Caregiver: Self If assistance needed, confirmed caregiver ready, willing and able to care for patient at discharge: Confirmed with: Living Arrangements Current Residence: House Number of Floors 3 Number of Entry Steps: 2 Bed/Bath Levels: Both second floor Facility: Facility Name: Plan to Return: Lives with: Spouse/significant other, Children Support Systems: Spouse/significant other, Children Activities of Daily Living Ambulation: Independent Bathing/Dressing: Independent Elimination/Continence /Toileting: Independent Feeding: Independent Who Assists with Activities of Daily Living: Instrumental Activities of Daily Living Prescription Coverage: Yes Pharmacy Used: [facility] Medication Management: Independent Transportation/Shoppin g: Independent Transportation Mode: Car Needs Assistance with Transportation at Discharge: No Meal Preparation: Independent Laundry/Cleaning: Independent Finances/Bill Paying: Independent Communication: Independent Types of Care Services/Equipment Utilized Care Services: Dialysis Type: Durable Medical Equipment: Patient's Goal/Discharge Plan Patient expects to be discharged to: home Discharge Planning Actions: Continue to follow Patient's Choice Rights and [employer] and Collaborative Relationships Disclosed as Indicated for Post-Acute Care: Interdisciplinary Team Engagement: PT/OT, Home Health Care Social Work Referral for: Additional Information: Patient admitted to [facility]V ICU with multivessel CAD. CTS consulted, plan for CABG. Spoke with patient at bedside, introduced self and role. Patient from home with and daughter, is independent, has PCP and prescription coverage, will have a ride home and [facility] following for post op HHC. Afia Arce RN Normal [facility] CBC (HEMOGRAM)on 06-05-2023 Erythrocyte distribution width (RBC) [Ratio] 13.5 % Normal 11.5-15.0 [facility] Comment on above: Performed By: #### L AB54 #### [employer] Supervisor: LUCINA FERRERA ([phone]) [address] Hematocrit (Bld) [Volume fraction] 38.6 % Low 40.0-52.0 [facility] Comment on above: Performed By: #### L AB54 #### [employer] Supervisor: LUCINA FERRERA ([phone]) [address] Hemoglobin (Bld) [Mass/Vol] 13.5 g/dL Normal 13.0-18.0 [facility] Comment on above: Performed By: #### L AB54 #### [employer] Supervisor: LUCINA FERRERA ([phone]) [address] MCH (RBC) [Entitic mass] 31.8 pg Normal 26.0-34.0 [facility] Comment on above: Performed By: #### L AB54 #### [employer] Supervisor: LUCINA [phone]) [address] MCHC 35.0 % Normal 30.5-36.0 [facility] Comment on above: Performed By: #### L AB54 #### [employer] Supervisor: LUCINA FERRERA ([phone]) [facility]) [address] [place] [address] MCV (RBC) [Entitic vol] 91.0 fL Normal 77.0-99.0 [facility] Comment on above: Performed By: #### L AB54 #### [employer] Supervisor: LUCINA FERRERA ([phone]) [facility] ([facility]) [address] [place] [address] Platelet mean volume (Bld) [Entitic vol] 9.7 fL Normal 9.0-12.7 [facility] Comment on above: Performed By: #### L AB54 #### [employer] Supervisor: LUCINA FERRERA ([phone]) [facility]) [address] [place] [address] Platelets (Bld) [#/Vol] 224 10*3/uL Normal 140-440 [facility] Comment on above: Performed By: #### L AB54 #### [employer] Supervisor: LUCINA FERRERA ([phone]) [facility]) [address] [place] [address] RBC (Bld) [#/Vol] 4.24 10*6/uL Low 4.40-5.90 [facility] Comment on above: Performed By: #### L AB54 #### [employer] Supervisor: LUCINA FERRERA ([phone]) [facility] ([facility]) [address] [place] [address] WBC (Bld) [#/Vol] 13.8 10*3/uL High 3.6-10.7 [facility] Comment on above: Performed By: #### L AB54 #### [employer] Supervisor: LUCINA FERRERA ([phone]) [facility]) [address] [place] [address] CBC panel Auto (Bld)on 06-04 Erythrocyte distribution width (RBC) [Ratio] 13.5 % 11.5 - 15.0 % [facility] Hematocrit (Bld) [Volume fraction] 38.6 % Low 40.0 - 52.0 % [facility] Hemoglobin (Bld) [Mass/Vol] 13.5 g/dL 13.0 - 18.0 g/dL [facility] Interpretation and review of laboratory results Abnormal [facility] MCH (RBC) [Entitic mass] 31.8 pg 26. 0 - 34.0 pg [facility] MCHC (RBC) [Mass/Vol] 35.0 % 30.5 - 36.0 % [facility] MCV (RBC) [Entitic vol] 91.0 fL 77.0 - 99.0 fL [facility] Platelet mean volume (Bld) [Entitic vol] 9.7 fL 9.0 - 12.7 fL [facility] Platelets (Bld) [#/Vol] 224 10*3/uL 140 - 440 10*3/uL [facility] RBC (Bld) [#/Vol] 4.24 10*6/uL Low 4.40 - 5.9 0 10*6/uL [facility] WBC (Bld) [#/Vol] 13.8 10*3/uL High 3.6 - 10.7 10*3/uL [facility] Calcium.ionized [Moles/Vol]o n 06-05-2023 Calcium.ionized (Bld) [Moles/Vol] 4.50 mg/dL 4.30 - 5.20 mg/dL [facility] Interpretation and review of laboratory results Normal [facility] PH, IONIZED CALCIUM 7.40 7.31 - 7.46 [facility] HEMOGLOBIN A1Con 06-05-2023 Glucose [Mass/Vol] 169 mg/dL Normal [facility] Comment on above: Performed By: #### L [id number] #### Corduroy Cutting Supervisor: LUCINA FERRERA ([phone]) [facility] ([facility]) [address] [place] [address] HbA1c (Bld) [Mass fraction] 7.5 % High <5.7 [facility] Comment on above: Result Comment: Norm al less than 5.7% Prediabetes 5.7% to 6.4% Diabetes 6.5% or higher --HgbA1C levels may not be accurate in patients who have renal disease, received recent blood transfusions, are anemic, or who have dyshemoglobinemia. Performed By: #### L [id number] #### Corduroy Cutting Supervisor: LUCINA FERRERA ([phone]) [facility] [address] [place] [address] Laboratory - Chemistry and C hemistry - challengeon 06-05-2023 Average glucose Estimated from glycated hemoglobin (Bld) [Mass/Vol] 169 mg/dL [facility] Magnesium [Mass/Vol] 2.0 mg/dL 1.6 - 2 .3 mg/dL [facility] Laboratory - Hematology and Cell countson 06-05-2023 HbA1c (Bld) [Mass fraction] 7.5 % High NINF - 5.7 % [facility] MAGNESIUMon 06-05-2023 Magnesium [Mass/Vol] 2.0 mg/dL Normal 1.6-2.3 [facility] Comment on above: Performed By: #### L [id number] #### Corduroy Cutting Supervisor: LUCINA FERRERA ([phone]) [facility] ([facility] [address] [place] [address] Magnesium [Mass/Vol]on 06-04 Interpretation and review of laboratory results Normal [facility] No Panel Informationon 06-04 [facility] Interpretation and review of laboratory results Abnormal Formerly Named [facility] Progress Noteon 06-05-2023 Progress Note -- Attestation signed by Reta Peterson MD at 06/05/2023 12:16 PM DOS: 06/05/2023 I personally performed a face to face diagnostic evaluation on this patient. I agree with the findings and plan of care as documented by the [employer], there has been no change in the physical exam or findings unless otherwise noted below. Plan for CABG on 06/06/2023 Possible left lower lobe wedge biopsy A total of 25 minutes were spent between the face to face encounter, physical exam, reviewing the medical history, coordinating the patient's care, counseling/educating the patient, ordering prescriptions/medicati ons/tests/procedures, interpreting results and documenting clinical information in the patient's electronic health record on the day of the encounter. The patient was seen and examined independently and relevant data reviewed by myself. A full chart review was performed. Reta Peterson MD Cardiothoracic Surgery Cardiothoracic Surgery Progress Note PATIENT NAME: Chau Barron DATE: 06/05/23 HPI: 82 y.o. with pmHx of HLD, HTN, T2DM who was transffered from outside hospital for CABG consideration. Per paper chart brought with the patient, he developed midsternal chest pressure, coughing, burping, and sweating while riding his lawnmower. By the time the patient arrived to the ED - chest pressure had slightly improved. Cardiac enzymes were elevated and he was admitted as NSTEMI and Cardiology was consulted. Cardiac cath was then preformed which showed: Distal LM 60-70% stenosis left main bifurcating into LAD, ramus and left circumflex. LAD with ostial and proximal ~70%. Distal LAD around 95%, ostial LCx 70%, RCA large dominant , calcified with proximal RCA thrombus: JIMMY-3 flow in the RCA. He was transferred to [facility] for CABG consideration. Surgery/Procedure: Planned CABG JAYCE 06/06/23 Interval History: 06/05/23: pt eager for operation tomorrow. No ne changes overnight Review of Systems Constitutional: Negative for diaphoresis, fatigue and fever. Respiratory: Negative for cough, shortness of breath and wheezing. Cardiovascular: Negative for chest pain, palpitations and leg swelling. Gastrointestinal: Negative for abdominal distention, constipation and diarrhea. Skin: Negative for color change, pallor and rash. Objective: Last BM Date: 06/01/23 Vitals: BP: 127/91, MAP (mmHg): 104, BP Method: Automatic Heart Rate: 65 Resp: 14 Temp: 37.2 ?C (98.9 ?F), Temp Source: Temporal BMI (Calculated): 32.79 BMP: Recent Labs 06/03/23 0148 06/04/234 06/05/23 0022 NA 138 136 138 K 4.2 4.9 4.0 CL 107 103 106 CO2 24 24 BUN 14 21* 19 CREATININE 0.87 0.95 0.93 CALCIUM 9.4 9.3 9.6 MG 2.2 2.2 2.0 CBC: Recent Labs 06/03/23 0148 06/04/23 0224 06/05/23 0022 WBC 10.0 13.3* 13.8* HGB 13.2 14.0 13.5 HCT 38.2* 41.1 38.6* PLT 210 232 224 MCV 91.4 92.6 91.0 RDW 13.4 13.5 13.5 INR: Recent Labs 06/02/23 1800 INR 1.0 Physical Exam Constitutional: General: He is not in acute distress. Appearance: Normal appearance. Cardiovascular: Rate and Rhythm: Normal rate and regular rhythm. Pulses: Normal pulses. Heart sounds: Normal heart sounds. No murmur heard. No friction rub. Pulmonary: Effort: Pulmonary effort is normal. Breath sounds: Normal breath sounds. Abdominal: General: Bowel sounds are normal. Palpations: Abdomen is soft. Tenderness: There is no abdominal tenderness. Musculoskeletal: Right lower leg: No edema. Left lower leg: No edema. Skin: General: Skin is warm and dry. Capillary Refill: Capillary refill takes less than 2 seconds. Neurological: Mental Status: He is alert. Assessment: MVCAD/NSTEMI HTN T2DM HLD Plan: Plan for CANG and left lower lobe wedge resection tomorrow Pre-op orders placed No changes to medications Tele status Disposition: planned surgery 06/06/23 Patient discussed and plan of day developed with Cardiothoracic Surgery Surgeon [facility] Progress Note Cardiothoracic Surge ry Interval Note Plan for CABG tomorrow with 10mm lung nodule wedge resection orders placed for Pre-op. Normal [facility] XR CHEST 1 VIEWon 06-05-2023 XR CHEST 1 VIEW Patient Name: CHAU SWIFT : 1940 [facility]#: [id number] Exam Date/Time: 06/05/2023 05:22 Procedure: XR CHEST 1 VIEW Ordering Provider: KAY KYLE Reason For Exam: DYSPNEA CHEST - PORTABLE: CLINICAL INDICATION: Respiratory distress for follow up. Dyspnea. TECHNIQUE: Portable AP COMPARISON: One day ago. IMPRESSION: FINDINGS/IMPRESSION: Limitations: Patient rotation. Lines, tubes, and devices: None. Cardiomediastinal silhouette: Heart size is within normal limits. Tortuosity of the thoracic aorta with atherosclerotic calcifications Lungs/Pleura: Mild elevation of the left hemidiaphragm with left greater than right basilar atelectasis. Nodular opacity at the left costophrenic angle better delineated on CT. Pulmonary vascularity is somewhat prominent but likely within normal limits. No sizable pleural effusions. No pneumothorax. Osseous structures: Unchanged in appearance. Soft tissues: No soft tissue abnormality is detected. Report Dictated on Electronically Signed By: Young Dodd MD Electronically Signed Date/Time: 06/05/2023 7:44 AM EDT Normal [facility] XR Chest Single viewon 06-04 [facility] Radiology Study observation (narrative) [facility] XR Chest Single viewOrdered By: Melody Dodd on 06-05-2023 [facility] Work Phone: aPTT Coag (Bld) [Time]on aPTT Coag (PPP) [Time] 53.1 s High 20.0 - 30.5 s [facility] Interpretation and review of laboratory results Abnormal Formerly Named [facility] aPTT Coag (PPP) [Time] 58.7 s High 20.0 - 30.5 s [facility] Interpretation and review of laboratory results Abnormal [facility] Named [facility] APTTon 06-04-2023 aPTT Coag (Bld) [Time] 66.5 s High 20.0-30.5 [facility] Comment on above: Result Comment: AZAR Unger COMMENTS: NOTE: The therapeutic time for Heparin anticoagulation, based on Xa activity inhibition, is an APTT of 46-80 seconds. Performed By: #### L [id number] #### Corduroy Cutting Supervisor: LUCINA FERRERA ([phone]) [facility]) [address] [place] [address] aPTT Coag (Bld) [Time] 45.9 s High 20.0-30.5 [facility] Comment on above: Result Comment: AZAR Unger COMMENTS: NOTE: The therapeutic time for Heparin anticoagulation, based on Xa activity inhibition, is an APTT of 46-80 seconds. Performed By: #### L [id number] #### Corduroy Cutting Supervisor: LUCINA FERRERA ([phone]) [facility]) [address] [place] [address] aPTT Coag (Bld) [Time] 57.0 s High 20.0-30.5 [facility] Comment on above: Result Comment: AZAR Unger COMMENTS: NOTE: The therapeutic time for Heparin anticoagulation, based on Xa activity inhibition, is an APTT of 46-80 seconds. Performed By: #### L [id number] #### Corduroy Cutting Supervisor: LUCINA FERRERA ([phone]) [facility]) [address] [place] [address] BASIC METABOLIC PANELon 04-2 Anion gap [Moles/Vol] 9 mmol/L Normal 3-13 [facility] Comment on above: Performed By: #### L [id number] #### Corduroy Cutting Supervisor: LUCINA FERRERA ([phone]) [facility] ([facility]) [address] [place] [address] Calcium [Mass/Vol] 9.3 mg/dL Normal 8.4-10.4 [facility] Comment on above: Performed By: #### L [id number] #### Corduroy Cutting Supervisor: LUCINA [phone]) [facility]) [address] [place] [address] Chloride [Moles/Vol] 103 mmol/L Normal 98-107 [facility] Comment on above: Performed By: #### L [id number] #### Corduroy Cutting Supervisor: LUCINA FERRERA ([phone]) [facility] ([facility] [address] [place] [address] [place] CO2 [Moles/Vol] 24 mmol/L Normal 22-30 [facility] Comment on above: Performed By: #### L [id number] #### Corduroy Cutting Supervisor: LUCINA FERRERA ([phone]) [facility]) [address] [place] [address] Creatinine [Mass/Vol] 0.95 mg/dL Normal 0.66-1.25 [facility] Comment on above: Performed By: #### L [id number] #### Corduroy Cutting Supervisor: LUCINA FERRERA ([phone]) [facility]) [address] [place] [address] GLOMERULAR FILTRATION RATE ML/MIN/1.73 SQ M.PREDICTED 79.9 mL/min/1.73m*2 Normal >60.0 [facility] Comment on above: Result Comment: Calc ulation based on the Chronic Kidney Disease Epidemiology Collaboration (CKD-EPI) equation refit without adjustment for race ORDER COMMENTS: Moderately Hemolyzed. Interpret Potassium and Glucose with caution. Performed By: #### L [id number] #### Corduroy Cutting Supervisor: LUCINA FERRERA ([phone]) [facility] ([facility]) [address] [place] [address] Glucose [Mass/Vol] 126 mg/dL High 70-100 [facility] Comment on above: Performed By: #### L [id number] #### Corduroy Cutting Supervisor: LUCINA FERRERA ([phone]) [facility] ([facility]) [address] [place] [address] [place] Potassium [Moles/Vol] 4.9 mmol/L Normal 3.5-5.1 [facility] Comment on above: Performed By: #### L [id number] #### Corduroy Cutting Supervisor: LUCINA FERRERA ([phone]) [facility]) [address] [place] [address] [place] Sodium [Moles/Vol] 136 mmol/L Normal 135-145 [facility] Comment on above: Performed By: #### L [id number] #### Corduroy Cutting Supervisor: LUCINA FERRERA ([phone]) [facility] [address] [place] [address] Urea nitrogen [Mass/Vol] 21 mg/dL High 9-20 [facility] Comment on above: Performed By: #### L [id number] #### Corduroy Cutting Supervisor: LUCINA FERRERA ([phone]) [facility] [address] [place] [address] Basic metabolic 1998 panelon 06-04-2023 Anion gap [Moles/Vol] 9 mmol/L 3 - 13 mmol/L [facility] Calcium [Mass/Vol] 9.3 mg/dL 8.4 - 10. 4 mg/dL [facility] Chloride [Moles/Vol] 103 mmol/L 98 - 10 7 mmol/L [facility] CO2 [Moles/Vol] 24 mmol/L 22 - 30 mmol/L [facility] Creatinine [Mass/Vol] 0.95 mg/dL 0.66 - 1.25 mg/dL [facility] GFR/1.73 sq M.predicted MDRD (S/P/Bld) [Vol rate/Area] 79.9 mL/min/{1.73_m2} - PINF [facility] th Glucose [Mass/Vol] 126 mg/dL High 70 - 100 mg/dL [facility] Potassium [Moles/Vol] 4.9 mmol/L 3.5 - 5.1 mmol/L [facility] Sodium [Moles/Vol] 136 mmol/L 135 - 145 mmol/L [facility] Urea nitrogen [Mass/Vol] 21 mg/dL High 9 - 20 mg/dL [facility] CALCIUM, IONIZEDon 4 CALCIUM IONIZED 4.50 mg/dL Normal 4.30-5.20 [facility] Comment on above: Performed By: #### L [id number] #### Corduroy Cutting Supervisor: LUCINA FERRERA ([phone]) [facility] [address] [place] [address] PH, IONIZED CALCIUM 7.35 Normal 7.31-7.46 [facility] Comment on above: Performed By: #### L [id number] #### Corduroy Cutting Supervisor: LUCINA FERRERA ([phone]) [facility]) [address] [place] [address] CARECOORDon 06-04-2023 [facility] Cardiothoracic Surge ry Interval Note PATIENT NAME: Chau Barron : 1940 (82 y.o.) TODAY'S DATE: 06/04/2023 Interval History: CT reviewed with surgeon. Will plan possible wedge resection at time of CABG for 10mm lung nodule. Normal [facility] CBC (HEMOGRAM)on 06-04-2023 Erythrocyte distribution width (RBC) [Ratio] 13.5 % Normal 11.5-15.0 [facility] Comment on above: Performed By: #### L [id number] ####Corduroy Cutting Supervisor: LUCINA FERRERA ([phone])[facility])[address] [place] [address] Hematocrit (Bld) [Volume fraction] 41.1 % Normal 40.0-52.0 [facility] Comment on above: Performed By: #### L [id number] ####Corduroy Cutting Supervisor: LUCINA FERRERA ([phone])[address] Hemoglobin (Bld) [Mass/Vol] 14.0 g/dL Normal 13.0-18.0 [facility] Comment on above: Performed By: #### L [id number] ####Corduroy Cutting Supervisor: LUCINA FERRERA ([phone])[facility])[address] [place] [address] MCH (RBC) [Entitic mass] 31.5 pg Normal 26.0-34.0 [facility] Comment on above: Performed By: #### L [id number] ####Corduroy Cutting Supervisor: LUCINA FERRERA ([phone])[address] MCHC 34.1 % Normal 30.5-36.0 [facility] Comment on above: Performed By: #### L [id number] ####Corduroy Cutting Supervisor: LUCINA FERRERA ([phone])[facility] ([facility])[address] [place] [address] MCV (RBC) [Entitic vol] 92.6 fL Normal 77.0-99.0 [facility] Comment on above: Performed By: #### L [id number] ####Corduroy Cutting Supervisor: LUCINA FERRERA ([phone])[facility] ([facility])[address] [place] [address] Platelet mean volume (Bld) [Entitic vol] 9.9 fL Normal 9.0-12.7 [facility] Comment on above: Performed By: #### L [id number] ####Corduroy Cutting Supervisor: LUCINA FERRERA ([phone])[facility] ([facility])[address] [place] [address] Platelets (Bld) [#/Vol] 232 10*3/uL Normal 140-440 [facility] Comment on above: Performed By: #### L [id number] ####Corduroy Cutting Supervisor: LUCINA FERRERA ([phone])[facility] ([facility])[address] [place] [address] RBC (Bld) [#/Vol] 4.44 10*6/uL Normal 4.40-5.90 [facility] Comment on above: Performed By: #### L [id number] ####Corduroy Cutting Supervisor: LUCINA FERRERA ([phone])[facility] ([facility])[address] [place] [address] WBC (Bld) [#/Vol] 13.3 10*3/uL High 3.6-10.7 [facility] Comment on above: Performed By: #### L [id number] ####Corduroy Cutting Supervisor: LUCINA FERRERA ([phone])[facility])[address] [place] [address] CBC panel Auto (Bld)on 06-03 Erythrocyte distribution width (RBC) [Ratio] 13.5 % 11.5 - 15.0 % [facility] Hematocrit (Bld) [Volume fraction] 41.1 % 40.0 - 52.0 % [facility] Hemoglobin (Bld) [Mass/Vol] 14.0 g/dL 13.0 - 18.0 g/dL [facility] Interpretation and review of laboratory results Abnormal [facility] MCH (RBC) [Entitic mass] 31.5 pg 26. 0 - 34.0 pg [facility] MCHC (RBC) [Mass/Vol] 34.1 % 30.5 - 36.0 % [facility] MCV (RBC) [Entitic vol] 92.6 fL 77.0 - 99.0 fL [facility] Platelet mean volume (Bld) [Entitic vol] 9.9 fL 9.0 - 12.7 fL [facility] Platelets (Bld) [#/Vol] 232 10*3/uL 140 - 440 10*3/uL [facility] RBC (Bld) [#/Vol] 4.44 10*6/uL 4.40 - 5.9 0 10*6/uL [facility] WBC (Bld) [#/Vol] 13.3 10*3/uL High 3.6 - 10.7 10*3/uL [facility] Calcium.ionized [Moles/Vol]o n 06-04-2023 Calcium.ionized (Bld) [Moles/Vol] 4.50 mg/dL 4.30 - 5.20 mg/dL [facility] Interpretation and review of laboratory results Normal [facility] PH, IONIZED CALCIUM 7.35 7.31 - 7.46 [facility] ECG 12-LEADon 06-04-2023 ECG 12-LEAD IMPRESSION: Sinus rhythm Nonspecific IVCD with LAD Abnormal T, consider ischemia, inferior leads Electronically Signed On 06-04-2023 17:38:47 EDT by Sae Raza Normal [facility] HEPATIC FUNCTION PANELon Albumin [Mass/Vol] 4.8 g/dL Normal 3.5-5.0 [facility] Comment on above: Performed By: #### L [id number] #### Corduroy Cutting Supervisor: LUCINA FERRERA ([phone]) [facility] ([facility]) [address] [place] [address] ALP [Catalytic activity/Vol] 42 U/L Normal 38-126 [facility] Comment on above: Performed By: #### L [id number] #### Corduroy Cutting Supervisor: LUCINA FERRERA ([phone]) [facility]) [address] [place] [address] ALT [Catalytic activity/Vol] 30 U/L Normal 0-49 [facility] Comment on above: Performed By: #### L [id number] #### Corduroy Cutting Supervisor: LUCINA FERRERA ([phone]) [facility]) [address] [place] [address] AST [Catalytic activity/Vol] 60 U/L High 15-46 [facility] Comment on above: Performed By: #### L [id number] #### Corduroy Cutting Supervisor: LUCINA FERRERA ([phone]) [facility]) [address] [place] [address] Bilirubin [Mass/Vol] 1.6 mg/dL High 0.2-1.3 [facility] Comment on above: Performed By: #### L [id number] #### Corduroy Cutting Supervisor: LUCINA FERRERA ([phone]) [facility]) [address] [place] [address] Bilirubin.indirect [Mass/Vol] 0.0 mg/dL Normal 0.0-0.3 [facility] Comment on above: Performed By: #### L [id number] #### Corduroy Cutting Supervisor: LUCINA FERRERA ([phone]) [facility]) [address] [place] [address] Protein [Mass/Vol] 8.3 g/dL High 6.3-8.2 [facility] Comment on above: Result Comment: ORDE R COMMENTS: Moderately Hemolyzed. Interpret Total Protein, Albumin, Alkaline Phosphatase, AST, Total Bilirubin, and Direct Bilirubin with caution. Performed By: #### L [id number] #### Corduroy Cutting Supervisor: LUCINA FERRERA ([phone]) [facility]) [address] [place] [address] Hepatic function 2000 panelo n 06-04-2023 Albumin [Mass/Vol] 4.8 g/dL 3.5 - 5.0 g/dL [facility] ALP [Catalytic activity/Vol] 42 U/L 38 - 126 U/L [facility] ALT [Catalytic activity/Vol] 30 U/L 0 - 49 U/L [facility] AST [Catalytic activity/Vol] 60 U/L High 15 - 46 U/L [facility] Bilirubin [Mass/Vol] 1.6 mg/dL High 0.2 - 1 .3 mg/dL [facility] Bilirubin.conjugated [Mass/Vol] 0.0 mg/dL 0.0 - 0.3 mg/dL [facility] Protein [Mass/Vol] 8.3 g/dL High 6.3 - 8.2 g/dL [facility] Laboratory - Chemistry and C hemistry - challengeon 06-04-2023 Magnesium [Mass/Vol] 2.2 mg/dL 1.6 - 2 .3 mg/dL [facility] MAGNESIUMon 06-04-2023 Magnesium [Mass/Vol] 2.2 mg/dL Normal 1.6-2.3 [facility] Comment on above: Result Comment: AZAR Unger COMMENTS: Moderately Hemolyzed. Interpret Magnesium with caution. Performed By: #### L [id number] #### Corduroy Cutting Supervisor: LUCINA FERRERA ([phone]) [facility] ([address] Magnesium [Mass/Vol]on 06-03 Interpretation and review of laboratory results Normal [facility] No Panel Informationon 06-03 P [place] 54 degrees [facility] AL Interval 202 ms [facility] QRS [place] -53 degrees [facility] QRSD Interval 130 ms [facility] QT Interval 459 ms [facility] QTC Interval 461 ms [facility] T Wave [place] -65 degrees [facility] CV EPIPHANY [facility] Interpretation and review of laboratory results Abnormal [facility] Progress Noteon 06-04-2023 Progress Note Nutrition rescreen completed. Chart reviewed. Patient to be monitored and followed by the diet data communications technician. ROC Zuñiga Normal [facility] Progress Note -- Attestation signed by Reta Peterson MD at 06/05/2023 10:29 AM (Updated) DOS: 06/04/2023 I personally performed a face to face diagnostic evaluation on this patient. I agree with the findings and plan of care as documented by the [employer], there has been no change in the physical exam or findings unless otherwise noted below. 82 M with MVCAD Awaiting CABG, tentative 06/05 CT shows LLL nodule. Possible biopsy during CABG if amenable. Nodule appears benign. If not amenable, will plan for observation or percutaneous biopsy as OP. Echo pending Obesity (BMI 30 - 39) A total of 25 minutes were spent between the face to face encounter, physical exam, reviewing the medical history, coordinating the patient's care, counseling/educating the patient, ordering prescriptions/medicati ons/tests/procedures, interpreting results and documenting clinical information in the patient's electronic health record on the day of the encounter. The patient was seen and examined independently and relevant data reviewed by myself. A full chart review was performed. Reta Peterson MD Cardiothoracic Surgery Cardiothoracic Surgery Progress Note PATIENT NAME: Chau Barron DATE: 06/04/23 HPI: 82 y.o. with pmHx of HLD, HTN, T2DM who was transffered from outside hospital for CABG consideration. Per paper chart brought with the patient, he developed midsternal chest pressure, coughing, burping, and sweating while riding his lawnmower. By the time the patient arrived to the ED - chest pressure had slightly improved. Cardiac enzymes were elevated and he was admitted as NSTEMI and Cardiology was consulted. Cardiac cath was then preformed which showed: Distal LM 60-70% stenosis left main bifurcating into LAD, ramus and left circumflex. LAD with ostial and proximal ~70%. Distal LAD around 95%, ostial LCx 70%, RCA large dominant , calcified with proximal RCA thrombus: JIMMY-3 flow in the RCA. He was transferred to [facility] for CABG consideration. Surgery/Procedure: Planned CABG JAYCE 06/06/23 Interval History: 06/04/23: No acute issues overnight. No cardiac symptoms. All questions answered. Review of Systems Constitutional: Negative for diaphoresis, fatigue and fever. Respiratory: Negative for cough, shortness of breath and wheezing. Cardiovascular: Negative for chest pain, palpitations and leg swelling. Gastrointestinal: Negative for abdominal distention, constipation and diarrhea. Skin: Negative for color change, pallor and rash. Objective: Last BM Date: 06/01/23 Vitals: BP: 119/70, MAP (mmHg): 85, BP Method: Automatic Heart Rate: 73 Resp: 16 Temp: 37 ?C (98.6 ?F), Temp Source: Temporal BMI (Calculated): 33.01 BMP: Recent Labs 06/02/23 1800 06/03/23 0148 06/04/23 0224 NA 135 138 136 K 4.1 4.2 4.9 CL 105 107 103 CO2 21* 25 24 BUN 14 14 21* CREATININE 0.81 0.87 0.95 CALCIUM 9.5 9.4 9.3 MG 2.3 2.2 2.2 CBC: Recent Labs 06/02/23 1800 06/03/23 0148 06/04/23 0224 WBC 11.0* 10.0 13.3* HGB 13.5 13.2 14.0 HCT 39.8* 38.2* 41.1 PLT 229 210 232 MCV 93.6 91.4 92.6 RDW 13.4 13.4 13.5 INR: Recent Labs 06/02/23 1800 INR 1.0 Physical Exam Constitutional: General: He is not in acute distress. Appearance: Normal appearance. Cardiovascular: Rate and Rhythm: Normal rate and regular rhythm. Pulses: Normal pulses. Heart sounds: Normal heart sounds. No murmur heard. No friction rub. Pulmonary: Effort: Pulmonary effort is normal. Breath sounds: Normal breath sounds. Abdominal: General: Bowel sounds are normal. Palpations: Abdomen is soft. Tenderness: There is no abdominal tenderness. Musculoskeletal: Right lower leg: No edema. Left lower leg: No edema. Skin: General: Skin is warm and dry. Capillary Refill: Capillary refill takes less than 2 seconds. Neurological: Mental Status: He is alert. Assessment: MVCAD/NSTEMI HTN T2DM HLD Plan: Continue preoperative workup No changes to medications Tele status Disposition: planned surgery 06/06/23 Patient discussed and plan of day developed with Cardiothoracic Surgery Surgeon Normal [facility] Heart TransthoracicOrdere d By: Agnes Sykes on 06-04-2023 Ao Root Index 1.70 cm/m2 [facility] Work Phone: Aortic Root 4.2 cm [facility] Work Phone: Ascending Aorta 4.2 cm [facility] Work Phone: Ascending Aorta Index 1.70 cm/m2 [facility] Work Phone: AV Area by Peak Velocity 2.1 cm2 [facility] Work Phone: AV Area by VTI 2.2 cm2 [facility] Work Phone: AV Mean Gradient 6 mmHg [facility] Work Phone: AV Mean Velocity 1.2 m/s [facility] Work Phone: AV Peak Gradient 11 mmHg [facility] Work Phone: AV Peak Velocity 1.6 m/s [facility] Work Phone: AV Velocity Ratio 0.50 [facility] Work Phone: AV VTI 38.1 cm [facility] Work Phone: BERTHA/BSA Peak Velocity 0.9 cm2/m2 [facility] Work Phone: BERTHA/BSA VTI 0.9 cm2/m2 [facility] Work Phone: E/E' Lateral 8.13 [facility] Work Phone: E/E' Ratio (Averaged) 10.56 [facility] [employer] Work Phone: E/E' Septal 13.00 [facility] [employer] Work Phone: EF BP 60 % 55 - 100 % [facility] [employer] Phone: Fractional Shortening 2D 29 % 28 - 44 % [facility] [employer] Phone: Global Longitudinal Strain -20.7 % [facility] [employer] Work Phone: Global Longitudinal Strain -17.8 % [facility] [employer] Work Phone: Global Longitudinal Strain -16.7 % [facility] [employer] Phone: Global Longitudinal Strain -18.4 % [facility] [employer] Phone: Interpretation and review of laboratory results Abnormal [facility] [employer] Phone: IVSd 1.2 cm Abnormal 0.6 - 1.0 cm [facility] [employer] Phone: LA Diameter 4.0 cm [facility] [employer] Phone: LA Size Index 1.62 cm/m2 [facility] [employer] Work Phone: LA Volume 2C 53 mL 18 - 58 mL [facility] [employer] Phone: LA Volume 4C 63 mL Abnormal 18 - 58 mL [facility] [employer] Phone: LA Volume A/L 64 mL [facility] [employer] Work Phone: LA Volume BP 59 mL Abnormal 18 - 58 mL [facility] [employer] Phone: LA Volume Index 2C 21 mL/m2 16 - 34 mL/m2 [facility] Phone: LA Volume Index 4C 26 mL/m2 16 - 34 mL/m2 [facility] [employer] Phone: LA Volume Index A/L 26 mL/m2 16 - 34 mL/m2 [facility] Phone: LA Volume Index BP 24 ml/m2 16 - 34 ml/m2 [facility] [employer] Phone: LA/AO Root Ratio 0.95 [facility] Work Phone: LV E' Lateral Velocity 8 cm/s [facility] Work Phone: LV E' Septal Velocity 5 cm/s [facility] Work Phone: LV EDV A2C 122 mL [facility] Work Phone: LV EDV A4C 134 mL [facility] Work Phone: LV EDV BP 130 mL 67 - 155 mL [facility] Work Phone: LV EDV Index A2C 49 mL/m2 [facility] Work Phone: LV EDV Index A4C 54 mL/m2 [facility] Work Phone: LV EDV Index BP 53 mL/m2 [facility] Work Phone: LV Ejection Fraction A2C 56 % [facility] Work Phone: LV Ejection Fraction A4C 63 % [facility] Work Phone: LV ESV A2C 54 mL [facility] Work Phone: LV ESV A4C 50 mL [facility] Work Phone: LV ESV BP 52 mL 22 - 58 mL [facility] Work Phone: LV ESV Index A2C 22 mL/m2 [facility] Work Phone: LV ESV Index A4C 20 mL/m2 [facility] Work Phone: LV ESV Index BP 21 mL/m2 [facility] Work Phone: LV Mass 2D 171.7 g 88 - 224 g [facility] Work Phone: LV Mass 2D Index 69.5 g/m2 49 - 115 g/m2 [facility] Work Phone: LV RWT Ratio 0.59 [facility] Work Phone: LVIDd 4.1 cm Abnormal 4.2 - 5.9 cm [facility] Work Phone: LVIDd Index 1.66 cm/m2 [facility] Work Phone: LVIDs 2.9 cm [facility] Work Phone: LVIDs Index 1.17 cm/m2 [facility] Work Phone: LVOT Area 4.2 cm2 [facility] Work Phone: LVOT Cardiac Output 5.1 liter/mi nut e [facility] Work Phone: LVOT Diameter 2.3 cm [facility] Work Phone: LVOT Mean Gradient 2 mmHg [facility] [employer] Work Phone: LVOT Peak Gradient 3 mmHg [facility] [employer] Work Phone: LVOT Peak Velocity 0.8 m/s [facility] [employer] Work Phone: LVOT Stroke Volume Index 34.1 mL/m2 [facility] [employer] Work Phone: LVOT SV 84.3 ml [facility] [employer] Work Phone: LVOT VTI 20.3 cm [facility] [employer] Work Phone: LVOT:AV VTI Index 0.53 [facility] [facility] Work Phone: LVPWd 1.2 cm Abnormal 0.6 - 1.0 cm [facility] Work Phone: MV A Velocity 1.14 m/s [facility] Work Phone: MV E Velocity 0.65 m/s [facility] Work Phone: MV E Wave Deceleration Time 447.1 ms [facility] [employer] Work Phone: MV E/A 0.57 [facility] [employer] Work Phone: RA Area 4C 70.7 mL [facility] Work Phone: RA Area 4C 65.7 mL [facility] Work Phone: RV Basal Dimension 4.9 cm [facility] Work Phone: RV Free Wall Peak S' 14 cm/s [facility] Work Phone: RV Mid Dimension 3.7 cm [facility] Work Phone: TAPSE 2.6 cm 1.7 cm [facility] Work Phone: [facility] Work Phone: US Heart Transthoracicon CV CPACS Vital signson 06-04-2023 Heart rate 60 /min bpm [facility] [employer] XR CHEST 1 VIEWon 06-04-2023 XR CHEST 1 VIEW Patient Name: CHAU SWIFT : 1940 Exam Date/Time: 06/04/2023 05:34 Procedure: XR CHEST 1 VIEW Ordering Provider: KAY KYLE Reason For Exam: DYSPNEA CHEST X-RAY CLINICAL INDICATION: DYSPNEA TECHNIQUE: AP COMPARISON: 06/03/2023 FINDINGS: Quality: Exam quality: EKG leads obscure small portions of the chest. Lines: None Cardiomediastinal Silhouette: The heart demonstrates normal size. Calcification of the thoracic aorta is noted. Lungs: The lungs are clear.. No evidence of pleural effusion or pneumothorax. Soft tissue: The soft tissue structures appear unremarkable. Bones: No acute osseous process identified. IMPRESSION: No acute cardiopulmonary process identified. Report Dictated on Electronically Signed By: César Davila MD Electronically Signed Date/Time: 06/04/2023 8:55 AM EDT Normal [facility] [employer] [facility] XR Chest Single viewon 06-03 [facility] RAD[facility] SYSTEM [facility] Radiology Study observation (narrative) Deja Goodrich [facility] XR Chest Single viewOrdered By: César Davila on 06-04-2023 [facility] [employer] Work Phone: aPTT Coag (Bld) [Time]on aPTT Coag (PPP) [Time] 66.5 s High 20.0 - 30.5 s [facility] Interpretation and review of laboratory results Abnormal [facility] aPTT Coag (PPP) [Time] 45.9 s High 20.0 - 30.5 s [facility] Interpretation and review of laboratory results Abnormal [facility] aPTT Coag (PPP) [Time] 57.0 s High 20.0 - 30.5 s [facility] Interpretation and review of laboratory results Abnormal [facility] APTTon 06-03-2023 aPTT Coag (Bld) [Time] 42.1 s High 20.0-30.5 [facility] Comment on above: Result Comment: AZAR Unger COMMENTS: NOTE: The therapeutic time for Heparin anticoagulation, based on Xa activity inhibition, is an APTT of 46-80 seconds. Performed By: #### L AB54 #### [employer] Supervisor: LUCINA FERRERA ([phone]) [facility]) [address] [place] [address] aPTT Coag (Bld) [Time] 38.4 s High 20.0-30.5 [facility] Comment on above: Result Comment: AZAR Unger COMMENTS: NOTE: The therapeutic time for Heparin anticoagulation, based on Xa activity inhibition, is an APTT of 46-80 seconds. Performed By: #### L AB54 #### [employer] Supervisor: LUCINA FERRERA ([phone]) [facility]) [address] [place] [address] aPTT Coag (Bld) [Time] 32.3 s High 20.0-30.5 [facility] Comment on above: Result Comment: AZAR Unger COMMENTS: NOTE: The therapeutic time for Heparin anticoagulation, based on Xa activity inhibition, is an APTT of 46-80 seconds. Performed By: #### L AB325 ####[employer] Supervisor: LUCINA FERRERA ([phone])[facility])[address] [place] [address] aPTT Coag (Bld) [Time] 33.3 s High 20.0-30.5 [facility] Comment on above: Result Comment: AZAR Unger COMMENTS: NOTE: The therapeutic time for Heparin anticoagulation, based on Xa activity inhibition, is an APTT of 46-80 seconds. Performed By: #### L AB54 #### [employer] Supervisor: LUCINA FERRERA ([phone]) [facility]) [address] [place] [address] BASIC METABOLIC PANELon 05-15 Anion gap [Moles/Vol] 7 mmol/L Normal 3-13 [facility] Comment on above: Performed By: #### L AB54 #### [employer] Supervisor: LUCINA FERRERA ([phone]) [facility] ([facility]) [address] [place] [address] Calcium [Mass/Vol] 9.4 mg/dL Normal 8.4-10.4 [facility] Comment on above: Performed By: #### L AB54 #### [employer] Supervisor: LUCINA FERRERA ([phone]) [facility] ([facility]) [address] [place] [address] Chloride [Moles/Vol] 107 mmol/L Normal 98-107 [facility] Comment on above: Performed By: #### L AB54 #### [employer] Supervisor: LUCINA FERRERA ([phone]) [facility] ([facility]) [address] [place] [address] CO2 [Moles/Vol] 25 mmol/L Normal 22-30 [facility] Comment on above: Performed By: #### L AB54 #### [employer] Supervisor: LUCINA FERRERA ([phone]) [facility]) [address] [place] [address] Creatinine [Mass/Vol] 0.87 mg/dL Normal 0.66-1.25 [facility] Comment on above: Performed By: #### L AB54 #### [employer] Supervisor: LUCINA FERRERA ([phone]) [facility]) [address] [place] [address] GLOMERULAR FILTRATION RATE ML/MIN/1.73 SQ M.PREDICTED 86.1 mL/min/1.73m*2 Normal >60.0 [facility] Comment on above: Result Comment: Calc ulation based on the Chronic Kidney Disease Epidemiology Collaboration (CKD-EPI) equation refit without adjustment for race Performed By: #### L AB54 #### [employer] Supervisor: LUCINA FERRERA ([phone]) [facility] ([facility]) [address] [place] [address] Glucose [Mass/Vol] 127 mg/dL High 70-100 [facility] Comment on above: Performed By: #### L AB54 #### [employer] Supervisor: LUCINA FERRERA ([phone]) [facility] [address] [place] [address] Potassium [Moles/Vol] 4.2 mmol/L Normal 3.5-5.1 [facility] Comment on above: Performed By: #### L AB54 #### [employer] Supervisor: LUCINA FERRERA ([phone]) [facility] ([facility]) [address] [place] [address] Sodium [Moles/Vol] 138 mmol/L Normal 135-145 [facility] Comment on above: Performed By: #### L AB54 #### [employer] Supervisor: LUCINA FERRERA ([phone]) [facility] [address] [place] [address] Urea nitrogen [Mass/Vol] 14 mg/dL Normal 9-20 [facility] Comment on above: Performed By: #### L AB54 #### [employer] Supervisor: LUCINA FERRERA ([phone]) [facility] ([facility]) [address] [place] [address] Basic metabolic 1998 panelon 06-03-2023 Anion gap [Moles/Vol] 7 mmol/L 3 - 13 mmol/L [facility] Calcium [Mass/Vol] 9.4 mg/dL 8.4 - 10. 4 mg/dL [facility] Chloride [Moles/Vol] 107 mmol/L 98 - 10 7 mmol/L [facility] CO2 [Moles/Vol] 25 mmol/L 22 - 30 mmol/L [facility] Creatinine [Mass/Vol] 0.87 mg/dL 0.66 - 1.25 mg/dL [facility] GFR/1.73 sq M.predicted MDRD (S/P/Bld) [Vol rate/Area] 86.1 mL/min/{1.73_m2} - PINF [facility] Glucose [Mass/Vol] 127 mg/dL High 70 - 100 mg/dL [facility] Interpretation and review of laboratory results Abnormal [facility] Potassium [Moles/Vol] 4.2 mmol/L 3.5 - 5.1 mmol/L [facility] Sodium [Moles/Vol] 138 mmol/L 135 - 145 mmol/L [facility] Urea nitrogen [Mass/Vol] 14 mg/dL 9 - 20 mg/dL [facility] CALCIUM, IONIZEDon CALCIUM IONIZED 4.50 mg/dL Normal 4.30-5.20 [facility] Comment on above: Performed By: #### L AB54 #### [employer] Supervisor: LUCINA FERRERA ([phone]) [facility]) [address] [place] [address] PH, IONIZED CALCIUM 7.42 Normal 7.31-7.46 [facility] Comment on above: Performed By: #### L AB54 #### [employer] Supervisor: LUCINA FERRERA ([phone]) [facility] ([facility]) [address] [place] [address] CBC (HEMOGRAM)on 06-03-2023 Erythrocyte distribution width (RBC) [Ratio] 13.4 % Normal 11.5-15.0 [facility] Comment on above: Performed By: #### L AB54 #### [employer] Supervisor: LUCINA FERRERA ([phone]) [facility]) [address] [place] [address] Hematocrit (Bld) [Volume fraction] 38.2 % Low 40.0-52.0 [facility] Comment on above: Performed By: #### L AB54 #### [employer] Supervisor: LUCINA [phone]) [facility]) [address] [place] [address] Hemoglobin (Bld) [Mass/Vol] 13.2 g/dL Normal 13.0-18.0 [facility] Comment on above: Performed By: #### L AB54 #### [employer] Supervisor: LUCINA [id number]) [facility] ([facility]) [address] [place] [address] MCH (RBC) [Entitic mass] 31.6 pg Normal 26.0-34.0 [facility] Comment on above: Performed By: #### L AB54 #### [employer] Supervisor: LUCINA FERRERA ([phone]) [facility] [address] [place] [address] MCHC 34.6 % Normal 30.5-36.0 [facility] Comment on above: Performed By: #### L AB54 #### [employer] Supervisor: LUCINA FERRERA ([phone]) [facility] ([facility]) [address] [place] [address] MCV (RBC) [Entitic vol] 91.4 fL Normal 77.0-99.0 S [facility] Comment on above: Performed By: #### L AB54 #### [employer] Supervisor: LUCINA FERRERA ([phone]) [facility] [address] [place] [address] Platelet mean volume (Bld) [Entitic vol] 9.7 fL Normal 9.0-12.7 [facility] Comment on above: Performed By: #### L AB54 #### [employer] Supervisor: LUCINA FERRERA ([phone]) [facility] ([facility]) [address] [place] [address] Platelets (Bld) [#/Vol] 210 10*3/uL Normal 140-440 [facility] Comment on above: Performed By: #### L AB54 #### [employer] Supervisor: LUCINA FERRERA ([phone]) [facility] ([facility]) [address] [place] [address] RBC (Bld) [#/Vol] 4.18 10*6/uL Low 4.40-5.90 [facility] Comment on above: Performed By: #### L AB54 #### [employer] Supervisor: LUCINA FERRERA ([phone]) [facility] ([facility]) [address] [place] [address] WBC (Bld) [#/Vol] 10.0 10*3/uL Normal 3.6-10.7 [facility] Comment on above: Performed By: #### L AB54 #### [employer] Supervisor: LUCINA FERRERA ([phone]) [facility] [address] [place] [address] CBC panel Auto (Bld)on 06-02 Erythrocyte distribution width (RBC) [Ratio] 13.4 % 11.5 - 15.0 % [facility] Hematocrit (Bld) [Volume fraction] 38.2 % Low 40.0 - 52.0 % [facility] Hemoglobin (Bld) [Mass/Vol] 13.2 g/dL 13.0 - 18.0 g/dL [facility] Interpretation and review of laboratory results Abnormal [facility] MCH (RBC) [Entitic mass] 31.6 pg 26. 0 - 34.0 pg [facility] MCHC (RBC) [Mass/Vol] 34.6 % 30.5 - 36.0 % [facility] MCV (RBC) [Entitic vol] 91.4 fL 77.0 - 99.0 fL [facility] Platelet mean volume (Bld) [Entitic vol] 9.7 fL 9.0 - 12.7 fL [facility] Platelets (Bld) [#/Vol] 210 10*3/uL 140 - 440 10*3/uL [facility] RBC (Bld) [#/Vol] 4.18 10*6/uL Low 4.40 - 5.9 0 10*6/uL [facility] WBC (Bld) [#/Vol] 10.0 10*3/uL 3.6 - 10.7 10*3/uL [facility] CT CHEST WO IV CONTRASTon CT CHEST WO IV CONTRAST Patient Name: CHAU ALAS : 1940 Exam Date/Time: 06/03/2023 18:22 Procedure: CT CHEST WO IV CONTRAST Ordering Provider: FLOREZ ANDREW Reason For Exam: assess aorta prior to open heart surgery --------ADDENDUM #1 -------- CRITICAL TEST RESULT COMMUNICATION: Notification of these findings was made to Dr. Reta Peterson via [employer] Secure Chat on 06/03/2023 10:17 PM EDT. Report Dictated on Electronically Signed By: Jerson Blackburn MD Electronically Signed Date/Time: 06/03/2023 10:17 PM EDT --------ORIGINAL REPORT -------- CT CHEST WITHOUT CONTRAST: CLINICAL INDICATION: Aortic evaluation prior to cardiac surgery. TECHNIQUE: Transaxial sequence through the chest from apices through the bases at 1 mm reconstruction interval. Coronal and sagittal reconstruction images reviewed. Dose reduction was employed with automated exposure control. COMPARISON: None. FINDINGS: Lungs: No consolidation or atelectasis. 10 mm left lower lobe nodule (series 4 image 187). Pleural fluid: None. Heart/Great vessels: The heart is mildly enlarged. There are moderate thoracic aortic calcifications. The thoracic aorta is normal in caliber. There are severe coronary artery calcifications. Mediastinum/Candice: Unremarkable on this noncontrast study. Chest wall and lower neck: No abnormality. Upper abdomen: No abnormality throughout the visualized portions of liver. Visualized portions of the spleen are normal. The adrenals are unremarkable. Osseous structures: Degenerative change of the thoracic spine is noted. IMPRESSION: 1. 10 mm left lower lobe nodule. Recommend biopsy, PET CT or three-month follow-up CT as outlined below*. 2. Mild cardiomegaly. 3. Atherosclerotic disease with coronary artery calcifications. *2017 - UPDATED [employer] GUIDELINES FOR MANAGEMENT OF SMALL PULMONARY NODULES DETECTED ON CT Note: Recommendations do not apply for lung cancer screening, patients with immunosuppression or with known cancer. Dimensions are average of long and short axis rounded to the millimeter SOLITARY NODULE: LOW RISK PATIENT <6mm - No follow up 6-8mm - 6-12 months, then consider 18-24 months >8mm - PET/CT, Bx or followup in 3 months SOLITARY NODULE: HIGH RISK PATIENT <6mm - Optional 6-12 months (suspicious morphology or upper lobe) 6-8mm - 6-12 months, then 18-24 months >8mm - PET/CT, Bx or followup in 3 months Report Dictated on Electronically Signed By: Jerson Blackburn MD Electronically Signed Date/Time: 06/03/2023 10:07 PM EDT [facility] 1940 [id number] Exam Date/Time: 06/03/2023 18:22 Procedure: CT CHEST WO IV CONTRAST Ordering Provider: FLOREZ ANDREW Reason For Exam: assess aorta prior to open heart surgery CT CHEST WITHOUT CONTRAST: CLINICAL INDICATION: Aortic evaluation prior to cardiac surgery. TECHNIQUE: Transaxial sequence through the chest from apices through the bases at 1 mm reconstruction interval. Coronal and sagittal reconstruction images reviewed. Dose reduction was employed with automated exposure control. COMPARISON: None. FINDINGS: Lungs: No consolidation or atelectasis. 10 mm left lower lobe nodule (series 4 image 187). Pleural fluid: None. Heart/Great vessels: The heart is mildly enlarged. There are moderate thoracic aortic calcifications. The thoracic aorta is normal in caliber. There are severe coronary artery calcifications. Mediastinum/Candice: Unremarkable on this noncontrast study. Chest wall and lower neck: No abnormality. Upper abdomen: No abnormality throughout the visualized portions of liver. Visualized portions of the spleen are normal. The adrenals are unremarkable. Osseous structures: Degenerative change of the thoracic spine is noted. IMPRESSION: 1. 10 mm left lower lobe nodule. Recommend biopsy, PET CT or three-month follow-up CT as outlined below*. 2. Mild cardiomegaly. 3. Atherosclerotic disease with coronary artery calcifications. *2017 - UPDATED [employer] GUIDELINES FOR MANAGEMENT OF SMALL PULMONARY NODULES DETECTED ON CT Note: Recommendations do not apply for lung cancer screening, patients with immunosuppression or with known cancer. Dimensions are average of long and short axis rounded to the millimeter SOLITARY NODULE: LOW RISK PATIENT <6mm - No follow up 6-8mm - 6-12 months, then consider 18-24 months >8mm - PET/CT, Bx or followup in 3 months SOLITARY NODULE: HIGH RISK PATIENT <6mm - Optional 6-12 months (suspicious morphology or upper lobe) 6-8mm - 6-12 months, then 18-24 months >8mm - PET/CT, Bx or followup in 3 months Report Dictated on Electronically Signed By: Jerson Blackburn MD Electronically Signed Date/Time: 06/03/2023 10:07 PM EDT assess aorta prior to open heart surgery Normal [facility] CT Chest WO contraston 06-02 [facility] RADIOLOGY [facility] RADIOLOGY SYSTEM [facility] Radiology Study observation (narrative) [facility] CT Chest WO contrastOrdered By: Jerson Blackburn on 06-03-2023 [facility] Work Phone: Calcium.ionized [Moles/Vol]O rdered By: Corrie Ritter on 06-03-2023 Calcium.ionized (Bld) [Moles/Vol] 4.50 mg/dL 4.30 - 5.20 mg/dL [facility] Interpretation and review of laboratory results Normal [facility] PH, IONIZED CALCIUM 7.42 7.31 - 7.46 [facility] ECG 12-LEADon 06-03-2023 ECG 12-LEAD IMPRESSION: Sinus rhythm Nonspecific IVCD with LAD Borderline T abnormalities, inferior leads Electronically Signed On 06-03-2023 14:52:31 EDT by Sae Raza Normal [facility] ECG 12-LEAD IMPRESSION: Sinus bradycardia Nonspecific IVCD with LAD Probable inferior infarct, age indeterminate Electronically Signed On 06-03-2023 14:25:43 EDT by Sae Raza Normal [facility] Laboratory - Chemistry and C hemistry - challengeon 06-03-2023 Glucose [Mass/Vol] 146 mg/dL High 70 - 100 mg/dL [facility] Magnesium [Mass/Vol] 2.2 mg/dL 1.6 - 2 .3 mg/dL [facility] Laboratory - Chemistry and C hemistry - challengeOrdered By: Shiv Evans on 06-03-2023 Troponin I.cardiac [Mass/Vol] 4.000 ng/mL Critically high NINF - 0.034 ng/mL [facility] MAGNESIUMon 06-03-2023 Magnesium [Mass/Vol] 2.2 mg/dL Normal 1.6-2.3 [facility] Comment on above: Performed By: #### L [id number] #### Corduroy Cutting Supervisor: LUCINA FERRERA ([phone]) [facility] ([facility]) [address] [place] [address] [place] MRSA BY PCRon 06-03-2023 MRSA BY PCR STAPHYLOCOCCUS AUREU S Reference Not Detected Not Detected MECA GENE Reference Not Detected Not Detected ORDER COMMENTS: No Staphylococcus aureus detected. Negative nasal MRSA PCR has a high negative predictive value for MRSA pneumonia. Consider stopping Vancomycin if no other clinical indication. Contact Antimicrobial Stewardship for further recommendations. Staphylococcus aureus nasal screen by real-time PCR. This test was modified and its performance characteristics determined by [facility]. The U. [place]. Food and Drug Administration has not approved or cleared this test; however, FDA clearance or approval is not currently required for clinical use. The results are not intended to be used as the sole means for clinical diagnosis or patient management decisions. Normal [facility] Comment on above: Performed By: #### L [id number] #### Cordu[employer] Cutting Supervisor: LUCINA FERRERA ([phone]) [facility] ([facility]) [address] [place] [address] MRSA DNA HELENA+probe Ql (Nose) on 06-03-2023 Interpretation and review of laboratory results Normal [facility] mecA gene Not detected Not Detected [facility] [employer] Staphylococcus aureus Not detected Not Detected [facility] [employer] [facility] Magnesium [Mass/Vol]on 06-02 Interpretation and review of laboratory results Normal [facility] No Panel InformationOrdered By: Sae Raza on 06-03-2023 P [place] 41 degrees [employer]™ Work Phone: AL Interval 202 ms [employer]™ Work Phone: [phone] QRS [place] -60 degrees [employer]™ Work Phone: QRSD Interval 128 ms [facility] [employer] [employer] Work Phone: QT Interval 429 ms [employer] Work Phone: QTC Interval 449 ms [employer] Work Phone: [phone] T Wave [place] -49 degrees [employer]™ Work Phone: [employer]™ Work Phone: No Panel Informationon 06-02 CV EPIPHANY [facility] [employer] P [place] 52 degrees [employer] AL Interval 206 ms [facility] QRS [place] -50 degrees [facility] QRSD Interval 131 ms [facility] QT Interval 457 ms [facility] QTC Interval 453 ms [facility] T Wave [place] -59 degrees [facility] CV EPIPHANY [facility] [employer] [facility] [employer] Interpretation and review of laboratory results Abnormal [facility] Radiology Study observation (narrative) Deja Goodrich deon Nursing Noteon 06-03-2023 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 Normal [facility] TROPONIN Ion 06-03-2023 Troponin I.cardiac [Mass/Vol] 4.000 ng/mL Critically high <0.034 [facility] Comment on above: Result Comment: AZAR R COMMENTS: Patients with high levels of Biotin oral intake (ie >5 mg/day) may have falsely decreased Troponin levels. Performed By: #### L [id number] #### [employer] Cut[employer] Supervisor: LUCINA FERRERA ([phone]) [facility] ([facility]) [address] [place] [address] Troponin I.cardiac [Mass/Vol ]Ordered By: Shiv Evans on 06-03-2023 Interpretation and review of laboratory results Abnormal [facility] Vital signsOrdered By: Chris Raza on 06-03-2023 Heart rate 66 /min bpm [facility] Work Phone: Vital signson 06-03-2023 Heart rate 59 /min bpm [facility] XR CHEST 1 VIEWon 06-03-2023 XR CHEST 1 VIEW [facility] 1940 [id number] Exam Date/Time: 06/03/2023 05:41 Procedure: XR CHEST 1 VIEW Ordering Provider: KAY KYLE Reason For Exam: DYSPNEA CHEST X-RAY AP CLINICAL INDICATION: Dyspnea AP radiograph of the chest was obtained. COMPARISON: 06/02/2023 FINDINGS: The cardiac silhouette is within normal limits. The exam was obtained at low inspiratory volumes resulting in crowding of the pulmonary interstitial markings. No focal consolidation or opacification is seen within the lungs. No pleural effusion or pneumothorax is identified. Degenerative changes of the thoracic spine are noted. IMPRESSION: No acute cardiopulmonary process. Report Dictated on Electronically Signed By: Jasiel Stone MD Electronically Signed Date/Time: 06/03/2023 9:59 AM EDT Normal [facility] XR Chest Single viewon 06-02 [facility] RADIOLOGY [facility] RADIOLOGY [facility] Radiology Study observation (narrative) [facility] XR Chest Single viewOrdered By: Jasiel Stone on 06-03-2023 [facility] Work Phone: aPTT Coag (Bld) [Time]on aPTT Coag (PPP) [Time] 42.1 s High 20.0 - 30.5 s [facility] Interpretation and review of laboratory results Abnormal [facility] aPTT Coag (PPP) [Time] 38.4 s High 20.0 - 30.5 s [facility] Interpretation and review of laboratory results Abnormal [facility] aPTT Coag (PPP) [Time] 32.3 s High 20.0 - 30.5 s [facility] Interpretation and review of laboratory results Abnormal [facility] aPTT Coag (PPP) [Time] 33.3 s High 20.0 - 30.5 s [facility] Interpretation and review of laboratory results Abnormal [facility] Absolute lymphocyte countOrd ered By: Jerson Don on 06-02-2023 Lymphocytes Auto (Unsp spec) [#/Vol] 2.18 10*3/uL 0.83-4.51 [facility] Activated partial thrombopla stin time (aPTT) in platelet poor plasma by coagulation aOrdered By: Jerson Don on 06-02-2023 aPTT Coag (PPP) [Time] 39.4 s 24.1-36.2 [facility] Automated lymphocyte count a s percentage of total leukocytesOrdered By: Jerson Don on 06-02-2023 Lymphocytes/100 WBC Auto (Unsp spec) 19.8 % 19-41 [facility] BASIC METABOLIC PANELon 05-14 Anion gap [Moles/Vol] 9 mmol/L Normal 3-13 [facility] Comment on above: Performed By: #### L [id number], [id number], [id number] ####Corduroy Cutting Supervisor: LUCINA FERRERA ([phone])[facility] ([facility])[address] [place] [address] Calcium [Mass/Vol] 9.5 mg/dL Normal 8.4-10.4 [facility] Comment on above: Performed By: #### Acosta [id number], [id number], [id number] ####Corduroy Cutting Supervisor: LUCINA FERRERA ([phone])[facility] ([facility])[address] [place] [address] Chloride [Moles/Vol] 105 mmol/L Normal 98-107 [facility] Comment on above: Performed By: #### Acosta [id number], [id number], [id number] ####Corduroy Cutting Supervisor: LUCINA FERRERA ([phone])[facility] [place] [address] CO2 [Moles/Vol] 21 mmol/L Low 22-30 [facility] Comment on above: Performed By: #### Acosta RODRIGUEZ, [id number], LAB15 ####Corduroy Cutting Supervisor: LUCINA FERRERA ([phone])[facility] [place] [address] Creatinine [Mass/Vol] 0.81 mg/dL Normal 0.66-1.25 [facility] Comment on above: Performed By: #### Acosta [id number], [id number], LAB15 ####Corduroy Cutting Supervisor: LUCINA FERRERA ([phone])[facility] ([facility] [place] [address] [place] GLOMERULAR FILTRATION RATE ML/MIN/1.73 SQ M.PREDICTED 88.0 mL/min/1.73m*2 Normal >60.0 [facility] Comment on above: Result Comment: Calc ulation based on the Chronic Kidney Disease Epidemiology Collaboration (CKD-EPI) equation refit without adjustment for race Performed By: #### L [id number], [id number], LAB15 ####Corduroy Cutting Supervisor: LUCINA FERRERA ([phone])[facility] [place] [address] [place] Glucose [Mass/Vol] 113 mg/dL High 70-100 [facility] Comment on above: Performed By: #### L [id number], [id number], LAB15 ####Corduroy Cutting Supervisor: LUCINA FERRERA ([phone])[facility] [place] [address] Potassium [Moles/Vol] 4.1 mmol/L Normal 3.5-5.1 [facility] Comment on above: Performed By: #### L [id number], [id number], LAB15 ####Corduroy Cutting Supervisor: LUCINA FERRERA ([phone])[facility] [place] [address] Sodium [Moles/Vol] 135 mmol/L Normal 135-145 [facility] Comment on above: Performed By: #### L [id number], [id number], LAB15 ####Corduroy Cutting Supervisor: LUCINA FERRERA ([phone])[facility] [place] [address] Urea nitrogen [Mass/Vol] 14 mg/dL Normal 9-20 [facility] Comment on above: Performed By: #### L [id number], [id number], LAB15 ####Corduroy Cutting Supervisor: LUCINA FERRERA ([phone])[facility] [place] [address] Basic metabolic 1998 panelon 06-02-2023 Anion gap [Moles/Vol] 9 mmol/L 3 - 13 mmol/L [facility] Calcium [Mass/Vol] 9.5 mg/dL 8.4 - 10. 4 mg/dL [facility] Chloride [Moles/Vol] 105 mmol/L 98 - 10 7 mmol/L [facility] CO2 [Moles/Vol] 21 mmol/L Low 22 - 30 mmol/L [facility] Creatinine [Mass/Vol] 0.81 mg/dL 0.66 - 1.25 mg/dL [facility] GFR/1.73 sq M.predicted MDRD (S/P/Bld) [Vol rate/Area] 88.0 mL/min/{1.73_m2} - PINF [facility] th Glucose [Mass/Vol] 113 mg/dL High 70 - 100 mg/dL [facility] Interpretation and review of laboratory results Abnormal [facility] Potassium [Moles/Vol] 4.1 mmol/L 3.5 - 5.1 mmol/L [facility] Sodium [Moles/Vol] 135 mmol/L 135 - 145 mmol/L [facility] Urea nitrogen [Mass/Vol] 14 mg/dL 9 - 20 mg/dL [facility] Basophil percentageOrdered B y: Jerson Don on 06-02-2023 Basophils/100 WBC (Bld) 0.6 % 0-1 [facility] Chloride [Moles/Vol] 109 mmol/L 98-107 [facility] Eosinophils/100 WBC (Bld) 2.8 % 0-5 [facility] Glucose [Mass/Vol] 128 mg/dL 74-106 [facility] Comment on above: Fasting Glucose resu lt greater than or equal to 126 mg/dL suggests DIABETES MELLITUS per A.D.A. criteria. Hemoglobin (Bld) [Mass/Vol] 12.7 g/dL 13.0-16.5 [facility] Monocytes/100 WBC (Bld) 11.7 % 0-10 [facility] Neutrophils (Bld) [#/Vol] 7.1 10*3/uL 2.0-7.7 [facility] Neutrophils/100 WBC (Bld) 64.6 % 47-70 [facility] Potassium [Moles/Vol] 3.9 mmol/L 3.5-5.1 [facility] Sodium [Moles/Vol] 139 mmol/L 136-145 [facility] WBC (Bld) [#/Vol] 11.0 10*3/uL 4.4-11.0 [facility] CALCIUM, IONIZEDon 4 CALCIUM IONIZED 4.40 mg/dL Normal 4.30-5.20 [facility] Comment on above: Performed By: #### L [id number] ####Corduroy Cutting Supervisor: LUCINA FERRERA ([phone])[facility] ([facility])[address] [place] [address] PH, IONIZED CALCIUM 7.42 Normal 7.31-7.46 [facility] Comment on above: Performed By: #### L AB54 ####Corduroy Cutting Supervisor: LUCINA FERRERA ([phone])[facility] [place] [address] CBC (HEMOGRAM)on 06-02-2023 Erythrocyte distribution width (RBC) [Ratio] 13.4 % Normal 11.5-15.0 [facility] Comment on above: Performed By: #### L [id number] #### Corduroy Cutting Supervisor: LUCINA FERRERA ([phone]) [facility] ([facility]) [address] [place] [address] Hematocrit (Bld) [Volume fraction] 39.8 % Low 40.0-52.0 [facility] Comment on above: Performed By: #### L AB54 #### Corduroy Cutting Supervisor: LUCINA FERRERA ([phone]) [facility]) [address] [place] [address] Hemoglobin (Bld) [Mass/Vol] 13.5 g/dL Normal 13.0-18.0 [facility] Comment on above: Performed By: #### L AB54 #### Corduroy Cutting Supervisor: LUCINA FERRERA ([phone]) [facility] ([facility]) [address] [place] [address] MCH (RBC) [Entitic mass] 31.8 pg Normal 26.0-34.0 [facility] Comment on above: Performed By: #### L AB54 #### Corduroy Cutting Supervisor: LUCINA FERRERA ([phone]) [facility] ([facility]) [address] [place] [address] MCHC 33.9 % Normal 30.5-36.0 [facility] Comment on above: Performed By: #### L [id number] #### Corduroy Cutting Supervisor: LUCINA FERRERA ([phone]) [facility] ([facility]) [address] [place] [address] MCV (RBC) [Entitic vol] 93.6 fL Normal 77.0-99.0 [facility] Comment on above: Performed By: #### L AB54 #### Corduroy Cutting Supervisor: LUCINA FERRERA ([phone]) [facility] ([facility]) [address] [place] [address] Platelet mean volume (Bld) [Entitic vol] 9.6 fL Normal 9.0-12.7 [facility] Comment on above: Performed By: #### L AB54 #### Corduroy Cutting Supervisor: LUCINA FERRERA ([phone]) [facility]) [address] [place] [address] Platelets (Bld) [#/Vol] 229 10*3/uL Normal 140-440 [facility] Comment on above: Performed By: #### L [id number] #### Corduroy Cutting Supervisor: LUCINA FERRERA ([phone]) [facility]) [address] [place] [address] RBC (Bld) [#/Vol] 4.25 10*6/uL Low 4.40-5.90 [facility] Comment on above: Performed By: #### L AB54 #### Corduroy Cutting Supervisor: LUCINA FERRERA ([phone]) [facility]) [address] [place] [address] WBC (Bld) [#/Vol] 11.0 10*3/uL High 3.6-10.7 [facility] Comment on above: Performed By: #### L AB54 #### Corduroy Cutting Supervisor: LUCINA FERRERA ([phone]) [facility]) [address] [place] [address] CBC panel Auto (Bld)on 06-01 Erythrocyte distribution width (RBC) [Ratio] 13.4 % 11.5 - 15.0 % [facility] Hematocrit (Bld) [Volume fraction] 39.8 % Low 40.0 - 52.0 % [facility] Hemoglobin (Bld) [Mass/Vol] 13.5 g/dL 13.0 - 18.0 g/dL [facility] Interpretation and review of laboratory results Abnormal [facility] MCH (RBC) [Entitic mass] 31.8 pg 26. 0 - 34.0 pg [facility] MCHC (RBC) [Mass/Vol] 33.9 % 30.5 - 36.0 % [facility] MCV (RBC) [Entitic vol] 93.6 fL 77.0 - 99.0 fL [facility] Platelet mean volume (Bld) [Entitic vol] 9.6 fL 9.0 - 12.7 fL [facility] Platelets (Bld) [#/Vol] 229 10*3/uL 140 - 440 10*3/uL [facility] RBC (Bld) [#/Vol] 4.25 10*6/uL Low 4.40 - 5.9 0 10*6/uL [facility] WBC (Bld) [#/Vol] 11.0 10*3/uL High 3.6 - 10.7 10*3/uL [facility] Calcium.ionized [Moles/Vol]o n 06-02-2023 Calcium.ionized (Bld) [Moles/Vol] 4.40 mg/dL 4.30 - 5.20 mg/dL [facility] Interpretation and review of laboratory results Normal [facility] PH, IONIZED CALCIUM 7.42 7.31 - 7.46 [facility] Determination of erythrocyte mean corpuscular volume (MCV)Ordered By: Jerson Don on 06-02-2023 MCV (RBC) [Entitic vol] 93.2 fL 80-94 [facility] Erythrocyte distribution wid th ratioOrdered By: Jerson Don on 06-02-2023 Erythrocyte distribution width (RBC) [Ratio] 13.2 % 11.6-14.6 [facility] Erythrocyte distribution wid th standard deviationOrdered By: Jerson Don on 06-02-2023 Erythrocyte distribution width (RBC) [Entitic vol] 44.9 fL 35.1-43.9 [facility] Hematocrit Auto (Bld) [Volum e fraction]Ordered By: Jerson Don on 06-02-2023 Hematocrit (Bld) [Volume fraction] 38.1 % 40-54 [facility] Immature granulocytes/100 WB C Auto (Bld)Ordered By: Jerson Don on 06-02-2023 Immature granulocytes/100 WBC (Bld) 0.500 % 0.0-0.9 [facility] Comment on above: IG% - Immature Granu locytes (promyelocytes, myelocytes and metamyelocytes) > 1% indicates that a LEFT SHIFT is Present. Laboratory - Chemistry and C hemistry - challengeon 06-02-2023 Troponin I.cardiac [Mass/Vol] 4.950 ng/mL Critically high NINF - 0.034 ng/mL [facility] Magnesium [Mass/Vol] 2.3 mg/dL 1.6 - 2 .3 mg/dL [facility] Laboratory - Chemistry and C hemistry - challengeOrdered By: Keerthi Min on 06-02-2023 Troponin I.cardiac [Mass/Vol] 5.520 ng/mL Critically high NINF - 0.034 ng/mL [facility] Laboratory - Chemistry and C hemistry - challengeOrdered By: Jerson Don on 06-02-2023 CO2 [Moles/Vol] 23.0 mmol/L 21.0-32.0 [facility] Urea nitrogen/Creatinine [Mass ratio] 17.4 mg/mg 10-20 [facility] Laboratory - Coagulationon 0 06-02-2023 aPTT Coag (PPP) [Time] 28.9 s 20.0 - 30.5 s [facility] INR Coag (PPP) [Relative time] 1.0 {INR} 0.9 - 1.1 [facility] PT Coag (Bld) [Time] 10.5 s 9.0 - 1 2.0 s [facility] Laboratory - Hematology and Cell countsOrdered By: Jerson Don on 06-02-2023 MCH (RBC) [Entitic mass] 31.1 pg 27.0-32.0 [facility] MCHC (RBC) [Mass/Vol] 33.3 g/dL 32-36 [facility] Nucleated RBC/100 WBC (Bld) [Ratio] 0 % 0-5 [facility] Platelet mean volume (Bld) [Entitic vol] 9.7 fL 6.2-12.0 [facility] Platelets (Bld) [#/Vol] 210 10*3/uL 150-450 [facility] MAGNESIUMon 06-02-2023 Magnesium [Mass/Vol] 2.3 mg/dL Normal 1.6-2.3 [facility] Comment on above: Performed By: #### L [id number], [id number], [id number] ####[employer]du[employer] Cutting Supervisor: LUCINA FERRERA ([phone])[address] Magnesium [Mass/Vol]on 06-01 Interpretation and review of laboratory results Normal [facility] No Panel Informationon 06-01 [facility] Interpretation and review of laboratory results Normal [facility] No Panel InformationOrdered By: Jerson Don on 06-02-2023 Estimated Creatinine Clearance Calc 87.89 ml/min [facility] Estimated GFR (MDRD) Amer 102 mL/min >60 [facility] Comment on above: GFR Calc Estimated GFR (MDRD) Non-Af Amer 84 mL/min >60 [facility] Comment on above: Non- GFR Calc Troponin I High Sensitivity 13878 pg/mL 3.0-78.0 [facility] Comment on above: Critical Result(s) C alled at: 05:10:41 06/02/2023 by: Eduard Mcfarlane. TO SONAL [facility]ENLEY [facility]. Results read back by same. Please Note: New Test Units and Gender Specific Reference Ranges. For more information see Policy Stat Procedure [place] High Sensitivity Troponin (TNIH) and attachments. PROTIME AND APTTon aPTT Coag (Bld) [Time] 28.9 s Normal 20.0-30.5 [facility] Comment on above: Performed By: #### L [id number] #### Corduroy Cutting Supervisor: LUCINA FERRERA ([phone]) [facility]) [address] [place] [address] INR Coag (PPP) [Relative time] 1.0 {INR} Normal 0.9-1.1 [facility] Comment on above: Result Comment: Geoff mmended Anticoagulant Therapy: SEE BELOW ----- INR of 2.0 - 3.0 : - Prophylaxis of Venous Thrombosis (high-risk surgery) - Treatment of Venous Thrombosis - Treatment of Pulmonary Embolism (Includes tissue heart valves, Acute Myocardial Infarction to prevent systemic embolism, Valvular Heart Disease, and Atrial Fibrillation) ----- INR of 2.5 - 3.5 : - Mechanical Prosthetic Valves (high risk) - If oral anticoagulant therapy is used to prevent Myocardial Infarction Performed By: #### L [id number] #### [employer] Cutting Supervisor: LUCINA FERRERA ([phone]) [facility] ([employer]) [address] [place] [address] PT Coag (PPP) [Time] 10.5 s Normal 9.0-12.0 [facility] Comment on above: Performed By: #### L [id number] #### [employer] Cutting Supervisor: LUCINA FERRERA ([phone]) [facility] ([employer]) [address] [place] [address] RBC Auto (Bld) [#/Vol]Ordere d By: Jerson Don on 06-02-2023 RBC (Bld) [#/Vol] 4.09 10*6/uL 4.6-6.2 [facility] Serum or plasma calcium madeline urement (mass/volume)Ordered By: Jerson Don on 06-02-2023 Calcium [Mass/Vol] 9.0 mg/dL 8.5-10.1 [facility] Serum or plasma creatinine m easurement (mass/volume)Ordered By: Jerson Don on 06-02-2023 Creatinine [Mass/Vol] 0.92 mg/dL 0.70-1.30 [facility] Comment on above: The validity of the calculated GFR & GFRAA in patients over 70 years has not been determined. Clinical correlation is essential. Serum or plasma thyroid stim ulating hormone (TSH) measurement (units/volume)Ordered By: Isidro Tirado on 06-02-2023 TSH Qn 3.96 uIU/mL 0.358-3.74 [facility] Serum or plasma urea nitroge n measurement (mass/volume)Ordered By: Jerson Don on 06-02-2023 Urea nitrogen [Mass/Vol] 16 mg/dL -18 [facility] TROPONIN Ion 06-02-2023 Troponin I.cardiac [Mass/Vol] 4.950 ng/mL Critically high <0.034 [facility] Comment on above: Result Comment: AZAR Unger COMMENTS: Patients with high levels of Biotin oral intake (ie >5 mg/day) may have falsely decreased Troponin levels. Performed By: #### L [id number] #### [employer] Cutting Supervisor: LUCINA FERRERA ([phone]) [facility] ([employer]) [address] [place] [address] TROPONIN, WITH SERIAL REFLEX on 06-02-2023 Troponin I.cardiac [Mass/Vol] 5.520 ng/mL Critically high <0.034 [facility] Comment on above: Result Comment: AZAR Unger COMMENTS: Patients with high levels of Biotin oral intake (ie >5 mg/day) may have falsely decreased Troponin levels. Performed By: #### L [id number] ####Corduroy Cutting Supervisor: LUCINA FERRERA ([phone])[facility] ([id number] Thin prep Papanicolaou smear with manual screeningOrdered By: Isidro Tirado on 06-02-2023 Thin prep Papanicolaou smear with manual screening 123 mg/dL 74-106 [facility] Comment on above: MANAGEMENT OF PATIEN T CARE PER NURSING PROTOCOL Thin prep Papanicolaou smear with manual screeningOrdered By: Jerson Don on 06-02-2023 Thin prep Papanicolaou smear with manual screening 7 5-15 [facility] Troponin I.cardiac [Mass/Vol ]on 06-02-2023 Interpretation and review of laboratory results Abnormal Formerly Named [facility] Troponin I.cardiac [Mass/Vol ]Ordered By: Keerthi Min on 06-02-2023 Interpretation and review of laboratory results Abnormal Formerly Named [facility] XR CHEST 1 VIEWon 06-02-2023 XR CHEST 1 VIEW Patient Name: CHAU SWIFT : 1940 Exam Date/Time: 06/02/2023 17:50 Procedure: XR CHEST 1 VIEW Ordering Provider: KAY KYLE Reason For Exam: DYSPNEA CLINICAL INFORMATION: Shortness of breath. Portable view of the chest at 1745 hours is provided without comparison. FINDINGS: The thoracic aorta is tortuous and ectatic. The cardiac silhouette and mediastinum are otherwise within normal limits. There are no focal infiltrates. There is mild prominence of the central pulmonary vasculature. IMPRESSION: 1. No focal infiltrates. 2. Prominence of the central pulmonary vasculature consistent with mild congestive heart failure/fluid overload. Report Dictated on Electronically Signed By: Domingo Langley MD Electronically Signed Date/Time: 06/02/2023 6:23 PM EDT Normal [facility] XR Chest Single viewon 06-01 [facility] RADIOLOGY [facility] RADIOLOGY [facility] Radiology [facility]narrative[facility] Chest Single viewOrdered By: Domingo Langley on 06-02-2023 [facility] Work Phone: Absolute lymphocyte countOrd ered By: ED PROVIDER on 06-01-2023 Lymphocytes Auto (Unsp spec) [#/Vol] 2.32 10*3/uL 0.83-4.51 [facility] Activated partial thrombopla stin time (aPTT) in platelet poor plasma by coagulation aOrdered By: Curtis Lancaster on 06-01-2023 aPTT Coag (PPP) [Time] 24.2 s 24.1-36.2 [facility] Automated lymphocyte count a s percentage of total leukocytesOrdered By: ED PROVIDER on 06-01-2023 Lymphocytes/100 WBC Auto (Unsp spec) 19.5 % 19-41 [facility] Basophil percentageOrdered B y: ED PROVIDER on 06-01-2023 Basophils/100 WBC (Bld) 0.8 % 0-1 [facility] Chloride [Moles/Vol] 106 mmol/L 98-107 [facility] Eosinophils/100 WBC (Bld) 4.2 % 0-5 [facility] Glucose [Mass/Vol] 153 mg/dL 74-106 [facility] Comment on above: Fasting Glucose resu lt greater than or equal to 126 mg/dL suggests DIABETES MELLITUS per A.D.A. criteria. Hemoglobin (Bld) [Mass/Vol] 13.6 g/dL 13.0-16.5 [facility] Monocytes/100 WBC (Bld) 11.8 % 0-10 [facility] Neutrophils (Bld) [#/Vol] 7.5 10*3/uL 2.0-7.7 [facility] Neutrophils/100 WBC (Bld) 63.2 % 47-70 [facility] Potassium [Moles/Vol] 3.9 mmol/L 3.5-5.1 [facility] Sodium [Moles/Vol] 137 mmol/L 136-145 [facility] WBC (Bld) [#/Vol] 11.9 10*3/uL 4.4-11.0 [facility] Determination of erythrocyte mean corpuscular volume (MCV)Ordered By: ED PROVIDER on 06-01-2023 MCV (RBC) [Entitic vol] 93.3 fL 80-94 [facility] Erythrocyte distribution wid th ratioOrdered By: ED PROVIDER on 06-01-2023 Erythrocyte distribution width (RBC) [Ratio] 13.2 % 11.6-14.6 [facility] Erythrocyte distribution wid th standard deviationOrdered By: ED PROVIDER on 06-01-2023 Erythrocyte distribution width (RBC) [Entitic vol] 45.0 fL 35.1-43.9 [facility] Hematocrit Auto (Bld) [Volum e fraction]Ordered By: ED PROVIDER on 06-01-2023 Hematocrit (Bld) [Volume fraction] 40.4 % 40-54 [facility] Immature granulocytes/100 WB C Auto (Bld)Ordered By: ED PROVIDER on 06-01-2023 Immature granulocytes/100 WBC (Bld) 0.500 % 0.0-0.9 [facility] Comment on above: IG% - Immature Granu locytes (promyelocytes, myelocytes and metamyelocytes) > 1% indicates that a LEFT SHIFT is Present. Laboratory - Chemistry and C hemistry - challengeOrdered By: ED PROVIDER on 06-01-2023 CO2 [Moles/Vol] 27.0 mmol/L 21.0-32.0 [facility] Urea nitrogen/Creatinine [Mass ratio] 16.4 mg/mg 10-20 [facility] Laboratory - CoagulationOrde red By: Curtis Lancaster on 06-01-2023 INR Coag (Bld) [Relative time] 1.1 {INR} [facility] PT Coag (PPP) [Time] 14.3 s 11.7-14.9 [facility] - Hematology and Cell countsOrdered By: ED PROVIDER on 06-01-2023 MCH (RBC) [Entitic mass] 31.4 pg 27.0-32.0 [facility] MCHC (RBC) [Mass/Vol] 33.7 g/dL 32-36 [facility] Nucleated RBC/100 WBC (Bld) [Ratio] 0 % 0-5 [facility] Platelet mean volume (Bld) [Entitic vol] 9.5 fL 6.2-12.0 [facility] Platelets (Bld) [#/Vol] 228 10*3/uL 150-450 [facility] No Panel InformationOrdered By: ED PROVIDER on 06-01-2023 Troponin I High Sensitivity 968 pg/mL 3.0-78.0 [facility] Comment on above: Critical Result(s) C alled at: 23:30:39 06/01/2023 by: Eduard Mcfarlane. TO LSPARR ARBORICULTURIST. Results read back by same. Please Note: New Test Units and Gender Specific Reference Ranges. For more information see Policy Stat Procedure Tok High Sensitivity Troponin (TNIH) and attachments. Estimated Creatinine Clearance Calc 73.73 ml/min [facility] Estimated GFR (MDRD) Amer 82 mL/min >60 [facility] Comment on above: GFR Calc Estimated GFR (MDRD) Non-Af Amer 68 mL/min >60 [facility] Comment on above: Non- GFR Calc RBC Auto (Bld) [#/Vol]Ordere d By: ED PROVIDER on 06-01-2023 RBC (Bld) [#/Vol] 4.33 10*6/uL 4.6-6.2 [facility] Serum or plasma calcium madeline urement (mass/volume)Ordered By: ED PROVIDER on 06-01-2023 Calcium [Mass/Vol] 9.1 mg/dL 8.5-10.1 [facility] Serum or plasma creatinine m easurement (mass/volume)Ordered By: ED PROVIDER on 06-01-2023 Creatinine [Mass/Vol] 1.10 mg/dL 0.70-1.30 [facility] Comment on above: The validity of the calculated GFR & GFRAA in patients over 70 years has not been determined. Clinical correlation is essential. Serum or plasma urea nitroge n measurement (mass/volume)Ordered By: ED PROVIDER on 06-01-2023 Urea nitrogen [Mass/Vol] 18 mg/dL 7-18 [facility] Thin prep Papanicolaou smear with manual screeningOrdered By: ED PROVIDER on 06-01-2023 Thin prep Papanicolaou smear with manual screening 4 5-15 [facility] Absolute lymphocyte countOrd ered By: Kishan Johnsonbrando on 04-24-2023 Lymphocytes Auto (Unsp spec) [#/Vol] 1.80 10*3/uL 0.83-4.51 [facility] Automated lymphocyte count a s percentage of total leukocytesOrdered By: Kishan Liliana on 04-24-2023 Lymphocytes/100 WBC Auto (Unsp spec) 19.2 % 19-41 [facility] Basophil percentageOrdered B y: Kishan Ford on 04-24-2023 Basophils/100 WBC (Bld) 0.9 % 0-1 [facility] Bilirubin [Mass/Vol] 0.70 mg/dL 0.20-1.00 [facility] Comment on above: For patients on eltr ombopag therapy, use of Dimension Tok TBIL is not recommended. Chloride [Moles/Vol] 103 mmol/L 98-107 [facility] Cholesterol [Mass/Vol] 128 mg/dL <200 [facility] Comment on above: <200 mg/dL Desirable 200-240 mg/dL Borderline >240 mg/dL High Risk Eosinophils/100 WBC (Bld) 4.2 % 0-5 [facility] Glucose [Mass/Vol] 153 mg/dL 74-106 [facility] Comment on above: Fasting Glucose resu lt greater than or equal to 126 mg/dL suggests DIABETES MELLITUS per A.D.A. criteria. Hemoglobin (Bld) [Mass/Vol] 13.9 g/dL 13.0-16.5 [facility] Monocytes/100 WBC (Bld) 12.4 % 0-10 [facility] Neutrophils (Bld) [#/Vol] 5.9 10*3/uL 2.0-7.7 [facility] Neutrophils/100 WBC (Bld) 62.8 % 47-70 [facility] Potassium [Moles/Vol] 4.0 mmol/L 3.5-5.1 [facility] Protein [Mass/Vol] 7.5 g/dL 6.4-8.2 [facility] Sodium [Moles/Vol] 137 mmol/L 136-145 [facility] Triglyceride [Mass/Vol] 191 mg/dL <199 [facility] Comment on above: The drugs N-Acetylcy steine and Metamizole may falsely depress this assay.Serum Triglycerides Reference Interval Normal <150 mg/dL Borderline high 150 - 199 mg/dL High 200 - 499 mg/dL Very High > or = 500 mg/dL WBC (Bld) [#/Vol] 9.4 10*3/uL 4.4-11.0 [facility] Determination of erythrocyte mean corpuscular volume (MCV)Ordered By: Kishan Ford on 04-24-2023 MCV (RBC) [Entitic vol] 94.8 fL 80-94 [facility] Erythrocyte distribution wid th ratioOrdered By: Kishan Ford on 04-24-2023 Erythrocyte distribution width (RBC) [Ratio] 13.2 % 11.6-14.6 [facility] Erythrocyte distribution wid th standard deviationOrdered By: Kishan Ford on 04-24-2023 Erythrocyte distribution width (RBC) [Entitic vol] 45.6 fL 35.1-43.9 [facility] Hematocrit Auto (Bld) [Volum e fraction]Ordered By: Kishan Ford on 04-24-2023 Hematocrit (Bld) [Volume fraction] 42.3 % 40-54 [facility] Immature granulocytes/100 WB C Auto (Bld)Ordered By: Kishan Ford on 04-24-2023 Immature granulocytes/100 WBC (Bld) 0.500 % 0.0-0.9 [facility] Comment on above: IG% - Immature Granu locytes (promyelocytes, myelocytes and metamyelocytes) > 1% indicates that a LEFT SHIFT is Present. Laboratory - Chemistry and C hemistry - challengeOrdered By: Kishan Ford on 04-24-2023 Albumin/Globulin [Mass ratio] 1.1 {ratio} 0.9-2.4 [facility] ALP [Catalytic activity/Vol] 58 U/L 45-117 [facility] ALT [Catalytic activity/Vol] 31 U/L 16-61 [facility] Cholesterol in HDL [Mass/Vol] 40 mg/dL >40 [facility] Comment on above: The drugs N-Acetylcy steine and Metamizole may falsely depress this assay. Reference Range HDL <40 mg/dL Low HDL Cholesterol HDL >or= 60 mg/dL High HDL Cholesterol Cholesterol in LDL [Mass/Vol] 50 mg/dL 0-130 [facility] CO2 [Moles/Vol] 28.0 mmol/L 21.0-32.0 [facility] Globulin (S) [Mass/Vol] 3.5 g/dL 2.2-4.2 [facility] Urea nitrogen/Creatinine [Mass ratio] 20.2 mg/mg 10-20 [facility] Laboratory - Hematology and Cell countsOrdered By: Kishan Ford on 04-24-2023 MCH (RBC) [Entitic mass] 31.2 pg 27.0-32.0 [facility] MCHC (RBC) [Mass/Vol] 32.9 g/dL 32-36 [facility] Nucleated RBC/100 WBC (Bld) [Ratio] 0 % 0-5 [facility] Platelet mean volume (Bld) [Entitic vol] 9.9 fL 6.2-12.0 [facility] Platelets (Bld) [#/Vol] 254 10*3/uL 150-450 [facility] No Panel InformationOrdered By: Kishan Ford on 04-24-2023 Estimated GFR (MDRD) Amer 99 mL/min >60 [facility] Comment on above: GFR Calc Estimated GFR (MDRD) Non-Af Amer 81 mL/min >60 [facility] Comment on above: Non- GFR Calc Urine Microalbumin/Creatinine Ratio 19.9 mg/g CRE <30 [facility] VLDL Cholesterol 38 mg/dL 5-40 [facility] RBC Auto (Bld) [#/Vol]Ordere d By: Kishan Ford on 04-24-2023 RBC (Bld) [#/Vol] 4.46 10*6/uL 4.6-6.2 [facility] Serum or plasma calcium madeline urement (mass/volume)Ordered By: Kishan Ford on 04-24-2023 Calcium [Mass/Vol] 9.4 mg/dL 8.5-10.1 [facility] Serum or plasma creatinine m easurement (mass/volume)Ordered By: Kishan Ford on 04-24-2023 Creatinine [Mass/Vol] 0.94 mg/dL 0.70-1.30 [facility] Comment on above: The validity of the calculated GFR & GFRAA in patients over 70 years has not been determined. Clinical correlation is essential. Serum or plasma urea nitroge n measurement (mass/volume)Ordered By: Kishan Ford on 04-24-2023 Urea nitrogen [Mass/Vol] 19 mg/dL 7-18 [facility] Thin prep Papanicolaou smear with manual screeningOrdered By: Kishan Ford on 04-24-2023 Thin prep Papanicolaou smear with manual screening 4.0 g/dL 3.2-5.0 [facility] Thin prep Papanicolaou smear with manual screening 22 U/L 15-37 [facility] Thin prep Papanicolaou smear with manual screening 6 5-15 [facility] Thin prep Papanicolaou smear with manual screening 11.2 mg/L NO RANGE EST. [facility] Urine creatinine measurement (mass/volume)Ordered By: Kishan Ford on 04-24-2023 Creatinine (U) [Mass/Vol] 56.20 mg/dL NO RANGE EST. [facility] Whole blood hemoglobin A1c/t otal hemoglobin ratio (mass fraction)Ordered By: Kishan Ford on 04-24-2023 HbA1c (Bld) [Mass fraction] 6.9 % 3.8-5.6 [facility] Comment on above: Normal < 5.7 % Predi abetic 5.7 - 6.4 % Diabetic >or= 6.5 % Please note range changes. Absolute lymphocyte countOrd ered By: Kishan Ford on 12-26-2022 Lymphocytes Auto (Unsp spec) [#/Vol] 1.69 10*3/uL 0.83-4.51 [facility] Basophil percentageOrdered B y: Kishan Ford on 12-26-2022 Basophils/100 WBC (Bld) 0.7 % 0-1 [facility] Bilirubin [Mass/Vol] 0.60 mg/dL 0.20-1.00 [facility] Comment on above: For patients on eltr ombopag therapy, use of Dimension Tok TBIL is not recommended. Chloride [Moles/Vol] 100 mmol/L 98-107 [facility] Cholesterol [Mass/Vol] 116 mg/dL <200 [facility] Comment on above: <200 mg/dL Desirable 200-240 mg/dL Borderline >240 mg/dL High Risk Eosinophils/100 WBC (Bld) 4.2 % 0-5 [facility] Glucose [Mass/Vol] 163 mg/dL 74-106 [facility] Comment on above: Fasting Glucose resu lt greater than or equal to 126 mg/dL suggests DIABETES MELLITUS per A.D.A. criteria. Neutrophils (Bld) [#/Vol] 5.7 10*3/uL 2.0-7.7 [facility] Neutrophils/100 WBC (Bld) 63.4 % 47-70 [facility] Potassium [Moles/Vol] 4.5 mmol/L 3.5-5.1 [facility] Protein [Mass/Vol] 7.3 g/dL 6.4-8.2 [facility] Sodium [Moles/Vol] 135 mmol/L 136-145 [facility] Triglyceride [Mass/Vol] 151 mg/dL <199 [facility] Comment on above: The drugs N-Acetylcy steine and Metamizole may falsely depress this assay.Serum Triglycerides Reference Interval Normal <150 mg/dL Borderline high 150 - 199 mg/dL High 200 - 499 mg/dL Very High > or = 500 mg/dL WBC (Bld) [#/Vol] 9.0 10*3/uL 4.4-11.0 [facility] Blood erythrocytes count (nu mber/volume)Ordered By: Kishan Ford on 12-26-2022 RBC (Bld) [#/Vol] 4.37 10*6/uL 4.6-6.2 [facility] Blood hemoglobin measurement (mass/volume)Ordered By: Kishan Ford on 12-26-2022 Hemoglobin (Bld) [Mass/Vol] 13.8 g/dL 13.0-16.5 [facility] Blood lymphocytes/100 leukoc ytesOrdered By: Kishan Ford on 12-26-2022 Lymphocytes/100 WBC (Bld) 18.9 % 19-41 [facility] Blood monocytes/100 leukocyt esOrdered By: Kishan Ford on 12-26-2022 Monocytes/100 WBC (Bld) 12.4 % 0-10 [facility] Blood platelet mean volumeOr dered By: Kishan Ford on 12-26-2022 Platelet mean volume (Bld) [Entitic vol] 9.9 fL 6.2-12.0 [facility] Determination of erythrocyte mean corpuscular volume (MCV)Ordered By: Kishan Ford on 12-26-2022 MCV (RBC) [Entitic vol] 97.9 fL 80-94 [facility] Hematocrit Auto (Bld) [Volum e fraction]Ordered By: Kishan Ford on 12-26-2022 Hematocrit (Bld) [Volume fraction] 42.8 % 40-54 [facility] Laboratory - Chemistry and C hemistry - challengeOrdered By: Kishan Ford on 12-26-2022 ALP [Catalytic activity/Vol] 61 U/L 45-117 [facility] ALT [Catalytic activity/Vol] 31 U/L 16-61 [facility] CO2 [Moles/Vol] 28.0 mmol/L 21.0-32.0 [facility] Globulin (S) [Mass/Vol] 3.5 g/dL 2.2-4.2 [facility] Urea nitrogen/Creatinine [Mass ratio] 15.7 mg/mg 10-20 [facility] Laboratory - Hematology and Cell countsOrdered By: Kishan Ford on 12-26-2022 Erythrocyte distribution width (RBC) [Entitic vol] 46.5 fL 35.1-43.9 [facility] Erythrocyte distribution width (RBC) [Ratio] 13.0 % 11.6-14.6 [facility] Immature granulocytes/100 WBC (Bld) 0.400 % 0.0-0.9 [facility] Comment on above: IG% - Immature Granu locytes (promyelocytes, myelocytes and metamyelocytes) > 1% indicates that a LEFT SHIFT is Present. MCH (RBC) [Entitic mass] 31.6 pg 27.0-32.0 [facility] Nucleated RBC/100 WBC (Bld) [Ratio] 0 % 0-5 [facility] MCHC Auto (RBC) [Mass/Vol]Or dered By: Kishan Ford on 12-26-2022 MCHC (RBC) [Mass/Vol] 32.2 g/dL 32-36 [facility] No Panel InformationOrdered By: Kishan Ford on 12-26-2022 Urine Microalbumin/Creatinine Ratio 31.2 mg/g CRE <30 [facility] Estimated GFR (MDRD) Amer 90 mL/min >60 [facility] Comment on above: GFR Calc Estimated GFR (MDRD) Non-Af Amer 74 mL/min >60 [facility] Comment on above: Non- GFR Calc Platelets bldOrdered By: Edison Ford on 12-26-2022 Platelets (Bld) [#/Vol] 229 10*3/uL 150-450 [facility] Serum or plasma albumin madeline urement (mass/volume)Ordered By: Kishan Ford on 12-26-2022 Albumin [Mass/Vol] 3.8 g/dL 3.2-5.0 [facility] Serum or plasma albumin/glob ulin mass ratioOrdered By: Kishan Ford on 12-26-2022 Albumin/Globulin [Mass ratio] 1.1 {ratio} 0.9-2.4 [facility] Serum or plasma calcium madeline urement (mass/volume)Ordered By: Kishan Ford on 12-26-2022 Calcium [Mass/Vol] 9.3 mg/dL 8.5-10.1 [facility] Serum or plasma cholesterol in HDL measurement (mass/volume)Ordered By: Kishan Ford on 12-26-2022 Cholesterol in HDL [Mass/Vol] 39 mg/dL >40 [facility] Comment on above: The drugs N-Acetylcy steine and Metamizole may falsely depress this assay. Reference Range HDL <40 mg/dL Low HDL Cholesterol HDL >or= 60 mg/dL High HDL Cholesterol Serum or plasma cholesterol in VLDL measurement (mass/volume)Ordered By: Kishan Ford on 12-26-2022 Cholesterol in VLDL [Mass/Vol] 30 mg/dL 5-40 [facility] Serum or plasma creatinine m easurement (mass/volume)Ordered By: Kishan Ford on 12-26-2022 Creatinine [Mass/Vol] 1.02 mg/dL 0.70-1.30 [facility] Comment on above: The validity of the calculated GFR & GFRAA in patients over 70 years has not been determined. Clinical correlation is essential. Serum or plasma low density lipoprotein (LDL) cholesterol measurement (mass/volume)Ordered By: Kishan Ford on 12-26-2022 Cholesterol in LDL [Mass/Vol] 47 mg/dL 0-130 [facility] Serum or plasma urea nitroge n measurement (mass/volume)Ordered By: Kishan Ford on 12-26-2022 Urea nitrogen [Mass/Vol] 16 mg/dL 7-18 [facility] Thin prep Papanicolaou smear with manual screeningOrdered By: Kishan Ford on 12-26-2022 Thin prep Papanicolaou smear with manual screening 9.7 mg/L NO RANGE EST. [facility] Thin prep Papanicolaou smear with manual screening 19 U/L 15-37 [facility] Thin prep Papanicolaou smear with manual screening 7 5-15 [facility] Urine creatinine measurement (mass/volume)Ordered By: Kishan Ford on 12-26-2022 Creatinine (U) [Mass/Vol] 31.10 mg/dL NO RANGE EST. [facility] Whole blood hemoglobin A1c/t otal hemoglobin ratio (mass fraction)Ordered By: Kishan Ford on 12-26-2022 HbA1c (Bld) [Mass fraction] 6.8 % 3.8-5.6 [facility] Comment on above: Normal < 5.7 % Predi abetic 5.7 - 6.4 % Diabetic >or= 6.5 % Please note range changes. Absolute lymphocyte countOrd ered By: Kishan Ford on 08-29-2022 Lymphocytes Auto (Unsp spec) [#/Vol] 1.87 10*3/uL 0.83-4.51 [facility] Basophil percentageOrdered B y: Kishan Ford on 08-29-2022 Basophils/100 WBC (Bld) 0.6 % 0-1 [facility] Bilirubin [Mass/Vol] 0.70 mg/dL 0.20-1.00 [facility] Comment on above: For patients on eltr ombopag therapy, use of Dimension Tok TBIL is not recommended. Chloride [Moles/Vol] 104 mmol/L 98-107 [facility] Cholesterol [Mass/Vol] 116 mg/dL <200 [facility] Comment on above: <200 mg/dL Desirable 200-240 mg/dL Borderline >240 mg/dL High Risk Eosinophils/100 WBC (Bld) 4.1 % 0-5 [facility] Glucose [Mass/Vol] 133 mg/dL 74-106 [facility] Comment on above: Fasting Glucose resu lt greater than or equal to 126 mg/dL suggests DIABETES MELLITUS per A.D.A. criteria. Neutrophils (Bld) [#/Vol] 7.1 10*3/uL 2.0-7.7 [facility] Neutrophils/100 WBC (Bld) 65.1 % 47-70 [facility] Potassium [Moles/Vol] 4.2 mmol/L 3.5-5.1 [facility] Protein [Mass/Vol] 7.5 g/dL 6.4-8.2 [facility] Sodium [Moles/Vol] 135 mmol/L 136-145 [facility] Triglyceride [Mass/Vol] 215 mg/dL <199 [facility] Comment on above: The drugs N-Acetylcy steine and Metamizole may falsely depress this assay.Serum Triglycerides Reference Interval Normal <150 mg/dL Borderline high 150 - 199 mg/dL High 200 - 499 mg/dL Very High > or = 500 mg/dL WBC (Bld) [#/Vol] 10.8 10*3/uL 4.4-11.0 [facility] Blood erythrocytes count (nu mber/volume)Ordered By: Kishan Ford on 08-29-2022 RBC (Bld) [#/Vol] 4.34 10*6/uL 4.6-6.2 [facility] Blood hemoglobin measurement (mass/volume)Ordered By: Kishan Ford on 08-29-2022 Hemoglobin (Bld) [Mass/Vol] 14.0 g/dL 13.0-16.5 [facility] Blood lymphocytes/100 leukoc ytesOrdered By: Kishan Ford on 08-29-2022 Lymphocytes/100 WBC (Bld) 17.3 % 19-41 [facility] Blood monocytes/100 leukocyt esOrdered By: Kishan Ford on 08-29-2022 Monocytes/100 WBC (Bld) 12.3 % 0-10 [facility] Blood platelet mean volumeOr dered By: Kishan Ford on 08-29-2022 Platelet mean volume (Bld) [Entitic vol] 10.0 fL 6.2-12.0 [facility] Determination of erythrocyte mean corpuscular volume (MCV)Ordered By: Kishan Ford on 08-29-2022 MCV (RBC) [Entitic vol] 96.1 fL 80-94 [facility] Hematocrit Auto (Bld) [Volum e fraction]Ordered By: Kishan Ford on 08-29-2022 Hematocrit (Bld) [Volume fraction] 41.7 % 40-54 [facility] Laboratory - Chemistry and C hemistry - challengeOrdered By: Kishan Ford on 08-29-2022 ALP [Catalytic activity/Vol] 59 U/L 45-117 [facility] ALT [Catalytic activity/Vol] 29 U/L 16-61 [facility] CO2 [Moles/Vol] 26.0 mmol/L 21.0-32.0 [facility] Globulin (S) [Mass/Vol] 3.7 g/dL 2.2-4.2 [facility] Urea nitrogen/Creatinine [Mass ratio] 16.8 mg/mg 10-20 [facility] Laboratory - Hematology and Cell countsOrdered By: Kishan Ford on 08-29-2022 Erythrocyte distribution width (RBC) [Entitic vol] 47.6 fL 35.1-43.9 [facility] Erythrocyte distribution width (RBC) [Ratio] 13.3 % 11.6-14.6 [facility] Immature granulocytes/100 WBC (Bld) 0.600 % 0.0-0.9 [facility] Comment on above: IG% - Immature Granu locytes (promyelocytes, myelocytes and metamyelocytes) > 1% indicates that a LEFT SHIFT is Present. MCH (RBC) [Entitic mass] 32.3 pg 27.0-32.0 [facility] Nucleated RBC/100 WBC (Bld) [Ratio] 0 % 0-5 [facility] MCHC Auto (RBC) [Mass/Vol]Or dered By: Kishan Ford on 08-29-2022 MCHC (RBC) [Mass/Vol] 33.6 g/dL 32-36 [facility] No Panel InformationOrdered By: Kishan Ford on 08-29-2022 Estimated GFR (MDRD) Amer 97 mL/min >60 [facility] Comment on above: GFR Calc Estimated GFR (MDRD) Non-Af Amer 80 mL/min >60 [facility] Comment on above: Non- GFR Calc Urine Microalbumin/Creatinine Ratio 24.9 mg/g CRE <30 [facility] Platelets bldOrdered By: Edison Ford on 08-29-2022 Platelets (Bld) [#/Vol] 232 10*3/uL 150-450 [facility] Serum or plasma albumin madeline urement (mass/volume)Ordered By: Kishan Ford on 08-29-2022 Albumin [Mass/Vol] 3.8 g/dL 3.2-5.0 [facility] Serum or plasma albumin/glob ulin mass ratioOrdered By: Kishan Ford on 08-29-2022 Albumin/Globulin [Mass ratio] 1.0 {ratio} 0.9-2.4 [facility] Serum or plasma calcium madeline urement (mass/volume)Ordered By: Kishan Ford on 08-29-2022 Calcium [Mass/Vol] 9.1 mg/dL 8.5-10.1 [facility] Serum or plasma cholesterol in HDL measurement (mass/volume)Ordered By: Kishan Ford on 08-29-2022 Cholesterol in HDL [Mass/Vol] 39 mg/dL >40 [facility] Comment on above: The drugs N-Acetylcy steine and Metamizole may falsely depress this assay. Reference Range HDL <40 mg/dL Low HDL Cholesterol HDL >or= 60 mg/dL High HDL Cholesterol Serum or plasma cholesterol in VLDL measurement (mass/volume)Ordered By: Kishan Ford on 08-29-2022 Cholesterol in VLDL [Mass/Vol] 43 mg/dL 5-40 [facility] Serum or plasma creatinine m easurement (mass/volume)Ordered By: Kishan Ford on 08-29-2022 Creatinine [Mass/Vol] 0.96 mg/dL 0.70-1.30 [facility] Comment on above: The validity of the calculated GFR & GFRAA in patients over 70 years has not been determined. Clinical correlation is essential. Serum or plasma low density lipoprotein (LDL) cholesterol measurement (mass/volume)Ordered By: Kishan Ford on 08-29-2022 Cholesterol in LDL [Mass/Vol] 34 mg/dL 0-130 [facility] Serum or plasma urea nitroge n measurement (mass/volume)Ordered By: Kishan Ford on 08-29-2022 Urea nitrogen [Mass/Vol] 16 mg/dL 7-18 [facility] Thin prep Papanicolaou smear with manual screeningOrdered By: Kishan Ford on 08-29-2022 Thin prep Papanicolaou smear with manual screening 23 U/L 15-37 [facility] Thin prep Papanicolaou smear with manual screening 5 5-15 [facility] Thin prep Papanicolaou smear with manual screening 7.0 mg/L NO RANGE EST. [facility] Urine creatinine measurement (mass/volume)Ordered By: Kishan Ford on 08-29-2022 Creatinine (U) [Mass/Vol] 27.90 mg/dL NO RANGE EST. [facility] Whole blood hemoglobin A1c/t otal hemoglobin ratio (mass fraction)Ordered By: Kishan Ford on 08-29-2022 HbA1c (Bld) [Mass fraction] 6.8 % 3.8-5.6 [facility] Comment on above: Normal < 5.7 % Predi abetic 5.7 - 6.4 % Diabetic >or= 6.5 % Please note range changes. Absolute lymphocyte countOrd ered By: Dr. Ford on 05-13-2022 Lymphocytes Auto (Unsp spec) [#/Vol] 1.50 10*3/uL 0.83-4.51 [facility] Basophil percentageOrdered B y: Dr. Ford on 05-13-2022 Basophils/100 WBC (Bld) 1.1 % 0-1 [facility] Bilirubin [Mass/Vol] 0.60 mg/dL 0.20-1.00 [facility] Comment on above: For patients on eltr ombopag therapy, use of Dimension Tok TBIL is not recommended. Chloride [Moles/Vol] 103 mmol/L 98-107 [facility] Cholesterol [Mass/Vol] 131 mg/dL <200 [facility] Comment on above: <200 mg/dL Desirable 200-240 mg/dL Borderline >240 mg/dL High Risk Eosinophils/100 WBC (Bld) 4.8 % 0-5 [facility] Glucose [Mass/Vol] 159 mg/dL 74-106 [facility] Comment on above: Fasting Glucose resu lt greater than or equal to 126 mg/dL suggests DIABETES MELLITUS per A.D.A. criteria. Neutrophils (Bld) [#/Vol] 5.0 10*3/uL 2.0-7.7 [facility] Neutrophils/100 WBC (Bld) 62.5 % 47-70 [facility] Potassium [Moles/Vol] 4.1 mmol/L 3.5-5.1 [facility] Protein [Mass/Vol] 7.1 g/dL 6.4-8.2 [facility] Sodium [Moles/Vol] 137 mmol/L 136-145 [facility] Triglyceride [Mass/Vol] 156 mg/dL <199 [facility] Comment on above: The drugs N-Acetylcy steine and Metamizole may falsely depress this assay.Serum Triglycerides Reference Interval Normal <150 mg/dL Borderline high 150 - 199 mg/dL High 200 - 499 mg/dL Very High > or = 500 mg/dL WBC (Bld) [#/Vol] 8.0 10*3/uL 4.4-11.0 [facility] Blood erythrocytes count (nu mber/volume)Ordered By: Dr. Ford on 05-13-2022 RBC (Bld) [#/Vol] 4.34 10*6/uL 4.6-6.2 [facility] Blood hemoglobin measurement (mass/volume)Ordered By: Dr. Ford on 05-13-2022 Hemoglobin (Bld) [Mass/Vol] 13.6 g/dL 13.0-16.5 [facility] Blood lymphocytes/100 leukoc ytesOrdered By: Dr. Ford on 05-13-2022 Lymphocytes/100 WBC (Bld) 18.8 % 19-41 [facility] Blood monocytes/100 leukocyt esOrdered By: Dr. Ford on 05-13-2022 Monocytes/100 WBC (Bld) 12.4 % 0-10 [facility] Blood platelet mean volumeOr dered By: Dr. Ford on 05-13-2022 Platelet mean volume (Bld) [Entitic vol] 9.9 fL 6.2-12.0 [facility] Determination of erythrocyte mean corpuscular volume (MCV)Ordered By: Dr. Ford on 05-13-2022 MCV (RBC) [Entitic vol] 95.4 fL 80-94 [facility] Hematocrit Auto (Bld) [Volum e fraction]Ordered By: Dr. Ford on 05-13-2022 Hematocrit (Bld) [Volume fraction] 41.4 % 40-54 [facility] Laboratory - Chemistry and C hemistry - challengeOrdered By: Dr. Ford on 05-13-2022 ALP [Catalytic activity/Vol] 60 U/L 45-117 [facility] ALT [Catalytic activity/Vol] 28 U/L 16-61 [facility] CO2 [Moles/Vol] 28.0 mmol/L 21.0-32.0 [facility] Globulin (S) [Mass/Vol] 3.4 g/dL 2.2-4.2 [facility] Urea nitrogen/Creatinine [Mass ratio] 18.4 mg/mg 10-20 [facility] Laboratory - Hematology and Cell countsOrdered By: Dr. Ford on 05-13-2022 Erythrocyte distribution width (RBC) [Entitic vol] 46.8 fL 35.1-43.9 [facility] Erythrocyte distribution width (RBC) [Ratio] 13.2 % 11.6-14.6 [facility] Immature granulocytes/100 WBC (Bld) 0.400 % 0.0-0.9 [facility] Comment on above: IG% - Immature Granu locytes (promyelocytes, myelocytes and metamyelocytes) > 1% indicates that a LEFT SHIFT is Present. MCH (RBC) [Entitic mass] 31.3 pg 27.0-32.0 [facility] Nucleated RBC/100 WBC (Bld) [Ratio] 0 % 0-5 [facility] MCHC Auto (RBC) [Mass/Vol]Or dered By: Dr. Ford on 05-13-2022 MCHC (RBC) [Mass/Vol] 32.9 g/dL 32-36 [facility] No Panel InformationOrdered By: Dr. Ford on 05-13-2022 Estimated GFR (MDRD) Amer 101 mL/min >60 [facility] Comment on above: GFR Calc Estimated GFR (MDRD) Non-Af Amer 84 mL/min >60 [facility] Comment on above: Non- GFR Calc Urine Microalbumin/Creatinine Ratio 14.7 mg/g CRE <30 [facility] Platelets bldOrdered By: Dr. Ford on 05-13-2022 Platelets (Bld) [#/Vol] 221 10*3/uL 150-450 [facility] Serum or plasma albumin madeline urement (mass/volume)Ordered By: Dr. Ford on 05-13-2022 Albumin [Mass/Vol] 3.7 g/dL 3.2-5.0 [facility] Serum or plasma albumin/glob ulin mass ratioOrdered By: Dr. Ford on 05-13-2022 Albumin/Globulin [Mass ratio] 1.1 {ratio} 0.9-2.4 [facility] Serum or plasma calcium madeline urement (mass/volume)Ordered By: Dr. Ford on 05-13-2022 Calcium [Mass/Vol] 9.5 mg/dL 8.5-10.1 [facility] Serum or plasma cholesterol in HDL measurement (mass/volume)Ordered By: Dr. Ford on 05-13-2022 Cholesterol in HDL [Mass/Vol] 38 mg/dL >40 [facility] Comment on above: The drugs N-Acetylcy steine and Metamizole may falsely depress this assay. Reference Range HDL <40 mg/dL Low HDL Cholesterol HDL >or= 60 mg/dL High HDL Cholesterol Serum or plasma cholesterol in VLDL measurement (mass/volume)Ordered By: Dr. Ford on 05-13-2022 Cholesterol in VLDL [Mass/Vol] 31 mg/dL 5-40 [facility] Serum or plasma creatinine m easurement (mass/volume)Ordered By: Dr. Ford on 05-13-2022 Creatinine [Mass/Vol] 0.92 mg/dL 0.70-1.30 [facility] Comment on above: The validity of the calculated GFR & GFRAA in patients over 70 years has not been determined. Clinical correlation is essential. Serum or plasma low density lipoprotein (LDL) cholesterol measurement (mass/volume)Ordered By: Dr. Ford on 05-13-2022 Cholesterol in LDL [Mass/Vol] 62 mg/dL 0-130 [facility] Serum or plasma urea nitroge n measurement (mass/volume)Ordered By: Dr. Ford on 05-13-2022 Urea nitrogen [Mass/Vol] 17 mg/dL 7-18 [facility] Thin prep Papanicolaou smear with manual screeningOrdered By: Dr. Ford on 05-13-2022 Thin prep Papanicolaou smear with manual screening 23 U/L 15-37 [facility] Thin prep Papanicolaou smear with manual screening 6 5-15 [facility] Thin prep Papanicolaou smear with manual screening 8.3 mg/L NO RANGE EST. [facility] Urine creatinine measurement (mass/volume)Ordered By: Dr. Ford on 05-13-2022 Creatinine (U) [Mass/Vol] 56.30 mg/dL NO RANGE EST. [facility] Whole blood hemoglobin A1c/t otal hemoglobin ratio (mass fraction)Ordered By: Dr. Ford on 05-13-2022 HbA1c (Bld) [Mass fraction] 7.4 % 3.8-5.6 [facility] Comment on above: Normal < 5.7 % Predi abetic 5.7 - 6.4 % Diabetic >or= 6.5 % Please note range changes. Absolute lymphocyte counton 08-25-2021 Lymphocytes Auto (Unsp spec) [#/Vol] 1.56 10*3/uL 0.83-4.51 [facility] Work Phone: Basophil percentageon 2021 Basophils/100 WBC (Bld) 0.8 % 0-1 [facility] Work Phone: Bilirubin [Mass/Vol] 0.90 mg/dL 0.20-1.00 [facility] Work Phone: Comment on above: For patients on eltr ombopag therapy, use of Dimension Tok TBIL is not recommended. Chloride [Moles/Vol] 104 mmol/L 98-107 [facility] Work Phone: Cholesterol [Mass/Vol] 133 mg/dL <200 [facility] Work Phone: Comment on above: <200 mg/dL Desirable 200-240 mg/dL Borderline >240 mg/dL High Risk Eosinophils/100 WBC (Bld) 8.6 % 0-5 [facility] Work Phone: Glucose [Mass/Vol] 124 mg/dL 74-106 [facility] Work Phone: Comment on above: Fasting Glucose resu lt from 100 to 125 mg/dL suggests IMPAIRED HOMEOSTASIS per A.D.A. criteria. Neutrophils (Bld) [#/Vol] 5.6 10*3/uL 2.0-7.7 [facility] Work Phone: [phone] Neutrophils/100 WBC (Bld) 60.8 % 47-70 [facility] Work Phone: Potassium [Moles/Vol] 4.1 mmol/L 3.5-5.1 [facility] Work Phone: Protein [Mass/Vol] 7.2 g/dL 6.4-8.2 [facility] Work Phone: Sodium [Moles/Vol] 136 mmol/L 136-145 [facility] Work Phone: Triglyceride [Mass/Vol] 133 mg/dL <199 [facility] Work Phone: Comment on above: The drugs N-Acetylcy steine and Metamizole may falsely depress this assay.Serum Triglycerides Reference Interval Normal <150 mg/dL Borderline high 150 - 199 mg/dL High 200 - 499 mg/dL Very High > or = 500 mg/dL WBC (Bld) [#/Vol] 9.1 10*3/uL 4.4-11.0 [facility] Work Phone: Blood erythrocytes count (nu mber/volume)on 08-25-2021 RBC (Bld) [#/Vol] 4.44 10*6/uL 4.6-6.2 [facility] Work Phone: Blood hemoglobin measurement (mass/volume)on 08-25-2021 Hemoglobin (Bld) [Mass/Vol] 14.0 g/dL 13.0-16.5 [facility] Work Phone: Blood lymphocytes/100 leukoc yteson 08-25-2021 Lymphocytes/100 WBC (Bld) 17.1 % 19-41 [facility] Work Phone: Blood monocytes/100 leukocyt eson 08-25-2021 Monocytes/100 WBC (Bld) 12.3 % 0-10 [facility] Work Phone: Blood platelet mean volumeon 08-25-2021 Platelet mean volume (Bld) [Entitic vol] 9.7 fL 6.2-12.0 [facility] Work Phone: Determination of erythrocyte mean corpuscular volume (MCV)on 08-25-2021 MCV (RBC) [Entitic vol] 94.4 fL 80-94 [facility] Work Phone: Hematocrit Auto (Bld) [Volum e fraction]on 08-25-2021 Hematocrit (Bld) [Volume fraction] 41.9 % 40-54 [facility] Work Phone: Laboratory - Chemistry and C hemistry - challengeon 08-25-2021 ALP [Catalytic activity/Vol] 58 U/L 45-117 [facility] Work Phone: ALT [Catalytic activity/Vol] 33 U/L 16-61 [facility] Work Phone: CO2 [Moles/Vol] 28.0 mmol/L 21.0-32.0 [facility] Work Phone: Globulin (S) [Mass/Vol] 3.3 g/dL 2.2-4.2 [facility] Work Phone: Urea nitrogen/Creatinine [Mass ratio] 15.5 mg/mg 10-20 [facility] Work Phone: Laboratory - Hematology and Cell countson 08-25-2021 Erythrocyte distribution width (RBC) [Entitic vol] 45.2 fL 35.1-43.9 [facility] Work Phone: Erythrocyte distribution width (RBC) [Ratio] 13.2 % 11.6-14.6 [facility] Work Phone: [phone] Immature granulocytes/100 WBC (Bld) 0.400 % 0.0-0.9 [facility] Work Phone: [phone] Comment on above: IG% - Immature Granu locytes (promyelocytes, myelocytes and metamyelocytes) > 1% indicates that a LEFT SHIFT is Present. MCH (RBC) [Entitic mass] 31.5 pg 27.0-32.0 [facility] Work Phone: [phone] Nucleated RBC/100 WBC (Bld) [Ratio] 0 % 0-5 [facility] Work Phone: [phone] MCHC Auto (RBC) [Mass/Vol]on 08-25-2021 MCHC (RBC) [Mass/Vol] 33.4 g/dL 32-36 [facility] Work Phone: No Panel Informationon 08-25 Estimated GFR (MDRD) Amer 103 mL/min >60 [facility] Work Phone: [phone] Comment on above: GFR Calc Estimated GFR (MDRD) Non-Af Amer 85 mL/min >60 [facility] Work Phone: [phone] Comment on above: Non- GFR Calc Platelets bldon 08-25-2021 Platelets (Bld) [#/Vol] 231 10*3/uL 150-450 [facility] Work Phone: [phone] Serum or plasma albumin madeline urement (mass/volume)on 08-25-2021 Albumin [Mass/Vol] 3.9 g/dL 3.2-5.0 [facility] Work Phone: [phone] Serum or plasma albumin/glob ulin mass ratioon 08-25-2021 Albumin/Globulin [Mass ratio] 1.2 {ratio} 0.9-2.4 [facility] Work Phone: [phone] Serum or plasma calcium madeline urement (mass/volume)on 08-25-2021 Calcium [Mass/Vol] 8.9 mg/dL 8.5-10.1 [facility] Work Phone: Serum or plasma cholesterol in HDL measurement (mass/volume)on 08-25-2021 Cholesterol in HDL [Mass/Vol] 39 mg/dL >40 [facility] Work Phone: Comment on above: The drugs N-Acetylcy steine and Metamizole may falsely depress this assay. Reference Range HDL <40 mg/dL Low HDL Cholesterol HDL >or= 60 mg/dL High HDL Cholesterol Serum or plasma cholesterol in VLDL measurement (mass/volume)on 08-25-2021 Cholesterol in VLDL [Mass/Vol] 27 mg/dL 5-40 [facility] Work Phone: Serum or plasma creatinine m easurement (mass/volume)on 08-25-2021 Creatinine [Mass/Vol] 0.91 mg/dL 0.70-1.30 [facility] Work Phone: Comment on above: The validity of the calculated GFR & GFRAA in patients over 70 years has not been determined. Clinical correlation is essential. Serum or plasma low density lipoprotein (LDL) cholesterol measurement (mass/volume)on 08-25-2021 Cholesterol in LDL [Mass/Vol] 67 mg/dL 0-130 [facility] Work Phone: Serum or plasma urea nitroge n measurement (mass/volume)on 08-25-2021 Urea nitrogen [Mass/Vol] 14 mg/dL 7-18 [facility] Work Phone: Thin prep Papanicolaou smear with manual screeningon 08-25-2021 Thin prep Papanicolaou smear with manual screening 25 U/L 15-37 [facility] Work Phone: [phone] Thin prep Papanicolaou smear with manual screening 4 5-15 [facility] Work Phone: [phone] Whole blood hemoglobin A1c/t otal hemoglobin ratio (mass fraction)on 08-25-2021 HbA1c (Bld) [Mass fraction] 6.7 % 3.8-5.6 [facility] Work Phone: Comment on above: Normal < 5.7 % Predi abetic 5.7 - 6.4 % Diabetic >or= 6.5 % Please note range changes. HGB A1C GLYCOHBon 11-08-2017 Hemoglobin A1c/Hemoglobin.total mass fraction (Bld) 6.4 % High 4.3-6.0 [facility] Comment on above: Performed By: #### L 550.61817 ####[facility] [id number] [place], [place] [address]Sn# [phone] LIPIDon 12-21-2016 Cholesterol 139 mg/dL Normal 0-199 [facility] Comment on above: Performed By: #### L 500.69426, L500.18228 ####[facility] [id number] [place], [place] [address]Ef# [phone] HDL Cholesterol 42 mg/dL Normal [place] 40 [facility] Comment on above: Result Comment: Eliana ents receiving Metamizole prior to venipuncture, mayhave falsely depressed results. Performed By: #### L 500.50860, [id number] ####[facility] [id number] [place], [place] [address]Ag# [phone] LDL Cholesterol 47 MG/DL Normal 0-129 [facility] Comment on above: Result Comment: ___C HOLESTEROL/HDL RATIO RISK___ CHD RISK = Total CHOL LDL HDL (CHOL/HDL) ---------Recommended <200 <130 >35 <3.4 ---Borderline 200-239 130-159 3.4-4.99 -------High >240 >160 >5.0 --- Performed By: #### L 500.86980, L500.42766 ####[facility] [id number] [place], [place] [address]Sj# [phone] Triglyceride 247 mg/dL High 30-149 [facility] Comment on above: Result Comment: Eliana ents receiving either N-Acetylcysteine (NAC) orMetamizole prior to venipuncture, may have falsely depressedresults. Performed By: #### L 500.29869, L500.63357 ####[facility] [id number] [place] [address]Le# [phone] LIVERon 12-21-2016 Alanine aminotransferase (ALT) 41 U/L Normal 13-61 [facility] Comment on above: Performed By: #### L 500.88200, L500.61333 ####[facility] [id number] [place], [place] [address]Vs# [phone] Albumin 4.2 g/dL Normal 3.2-5.0 [facility] Comment on above: Performed By: #### L 500.21044, L500.86531 ####[facility] [id number] [place] [address]Yj# [phone] Albumin/Globulin Ratio 1.2 {ratio} Normal 0.8-2.0 [facility] Comment on above: Performed By: #### L 500.46339, L500.22734 ####[facility] [id number] [place], [place] [address]Tl# [phone] ALK PHOS 62 U/L Normal 45-117 [facility] Comment on above: Performed By: #### L 500.26426, L500.74920 ####[facility] [id number] [place] [address], [place] [address]Dd# [phone] BILI DIRECT 0.20 MG/DL Normal 0.00-0.20 [facility] Comment on above: Performed By: #### L 500.86082, L500.86832 ####[facility] [id number] [place], [place] [address]Dd# [phone] BILI TOTAL 0.8 MG/DL Normal 0.2-1.0 [facility] Comment on above: Performed By: #### L 500.59228, L500.13895 ####[facility] [id number] [place] [address]Px# [phone] Globulin 3.5 g/dL Normal 2.2-4.2 [facility] Comment on above: Performed By: #### L 500.08077, L500.63608 ####[facility] [id number] [place] [address]Mo# [phone] Protein 7.7 g/dL Normal 6.0-8.5 [facility] Comment on above: Performed By: #### L 500.63491, L500.94976 ####[facility] [id number] [place] [address]Rs# [phone] SGOT (AST) 29 U/L Normal 8-34 [facility] Comment on above: Performed By: #### L 500.66789, L500.13943 ####[facility] [id number] [place] [address]Mc# [phone] Vital Signs Date Time Vital Sign Value Performing Clinician John viramontes 07-05-2024 10:34-0400 Body height 190.[address] Kishan Ford MD Work Phone: [facility] 07-05-2024 10:34-0400 Body mass index (BMI) [Ratio] 35.4 kg/m2 Dr. Kishan Ford MD Work Phone: [facility] 07-05-2024 10:34-0400 Body weight 128.[address] Kishan Ford MD Work Phone: [facility] 07-05-2024 10:34-0400 Diastolic blood pressure 67 mm[Hg] Dr. Kishan Ford MD Work Phone: [facility] 07-05-2024 10:34-0400 Heart rate 73 /min Dr. Kishan Ford MD Work Phone: [phone] [place] [address] 07-05-2024 10:34-0400 Respiratory rate 18 /min Dr. Kishan Ford MD Work Phone: [phone] [address] 07-05-2024 10:34-0400 SaO2% (BldA) [Mass fraction] 91 % Dr. Kishan Ford MD Work Phone: [phone] [place] [address] 07-05-2024 10:34-0400 Systolic blood pressure 103 mm[Hg] Dr. Kishan Ford MD Work Phone: 1(288)[phone] [place] [address] 03-13-2024 10:55-0500 Body height 190.[address] Kishan Ford MD Work Phone: 6(435)[phone] [address] 03-13-2024 10:55-0500 Body mass index (BMI) [Ratio] 35.4 kg/m2 Dr. Kishan Ford MD Work Phone: 1(467)[phone] [address] 03-13-2024 10:55-0500 Body temperature 98.5 [degF] Dr. Kishan Ford MD Work Phone: [facility] 03-13-2024 10:55-0500 Body weight 128.[address] Kishan Ford MD Work Phone: 5(149)[phone] [place] [address] 03-13-2024 10:55-0500 Diastolic blood pressure 69 mm[Hg] Dr. Kishan Ford MD Work Phone: [facility] 03-13-2024 10:55-0500 Heart rate 68 /min Dr. Kishan Ford MD Work Phone: [facility] 03-13-2024 10:55-0500 Respiratory rate 18 /min Dr. Kishan Ford MD Work Phone: [facility] 03-13-2024 10:55-0500 SaO2% (BldA) [Mass fraction] 92 % Dr. Kishan Ford MD Work Phone: [facility] 03-13-2024 10:55-0500 Systolic blood pressure 118 mm[Hg] Dr. Kishan Ford MD Work Phone: [facility] 06-26-2023 11:26-0400 Body height 190.5 cm Erica Kay PRODUCT MANAGER [employer] - [employer] Work Phone: [facility] [employer] 06-26-2023 11:26-0400 Body mass index (BMI) [Ratio] 34.12 kg/m2 Erica Leesy PRODUCT MANAGER [employer] - [employer] Work Phone: [facility] [employer] 06-26-2023 11:26-0400 Body weight 123.83 kg Erica Kay PRODUCT MANAGER [employer] - [employer] Work Phone: [facility] [employer] 06-26-2023 11:26-0400 Diastolic blood pressure 75 mm[Hg] Erica Kay PRODUCT MANAGER [employer] - [employer] Work Phone: [facility] [employer] 06-26-2023 11:26-0400 Heart rate 76 /min Erica Kay PRODUCT MANAGER [employer] - [employer] Work Phone: [facility] [employer] 06-26-2023 11:26-0400 Systolic blood pressure 138 mm[Hg] Erica Kay PRODUCT MANAGER [employer] Work Phone: [facility] [employer] 06-13-2023 16:00-0400 Body temperature 98.2 [degF] Reta Peterson MD Work Phone: [facility] [employer] 06-13-2023 16:00-0400 Diastolic blood pressure 64 mm[Hg] Reta Peterson MD Work Phone: [facility] [employer] 06-13-2023 16:00-0400 Heart rate 78 /min Reta Peterson MD Work Phone: [facility] 06-13-2023 16:00-0400 Respiratory rate 16 /min Reta Peterson MD Work Phone: [facility] 06-13-2023 16:00-0400 SaO2% (BldA) [Mass fraction] 95 % Reta Peterson MD Work Phone: [facility] 06-13-2023 16:00-0400 Systolic blood pressure 128 mm[Hg] Reta Peterson MD Work Phone: [facility] 06-13-2023 05:00-0400 Body mass index (BMI) [Ratio] 34 kg/m2 Reta Peterson MD Work Phone: [facility] 06-13-2023 05:00-0400 Body weight 123.38 kg Reta Peterson MD Work Phone: [facility] 06-07-2023 09:21-0400 Body height 190.5 cm Reta Peterson MD Work Phone: [facility] 06-06-2023 11:20-0400 SaO2% (BldA) [Mass fraction] 98.6 % Reta Peterson MD Work Phone: [facility] 06-02-2023 12:15-0400 Diastolic blood pressure 96 mm[Hg] Dr. Kishan Ford Work Phone: [facility] 06-02-2023 12:15-0400 Heart rate 70 /min Dr. Kishan Ford Work Phone: [facility] 06-02-2023 12:15-0400 Respiratory rate 16 /min Dr. Kishan Ford Work Phone: [facility] 06-02-2023 12:15-0400 SaO2% (BldA) [Mass fraction] 93 % Dr. Kishan Ford Work Phone: [facility] 06-02-2023 12:15-0400 Systolic blood pressure 129 mm[Hg] Dr. Kishan Ford Work Phone: [facility] 06-02-2023 07:51-0400 Body temperature 97.6 [degF] Dr. Kishan Ford Work Phone: [facility] 06-02-2023 00:29-0400 Body height 190.[address] Kishan Ford Work Phone: [facility] 06-02-2023 00:29-0400 Body mass index (BMI) [Ratio] 34.2 kg/m2 Dr. Kishna Ford Work Phone: [facility] 06-02-2023 00:29-0400 Body weight 124.[address] Kishan Ford Work Phone: [facility] 06-02-2023 00:00-0400 Diastolic blood pressure 72 mm[Hg] [facility] 06-02-2023 00:00-0400 Heart rate 72 /min [facility] 06-02-2023 00:00-0400 Respiratory rate 15 /min [facility] 06-02-2023 00:00-0400 SaO2% (BldA) [Mass fraction] 93 % [facility] 06-02-2023 00:00-0400 Systolic blood pressure 119 mm[Hg] [facility] 06-01-2023 23:57-0400 Body temperature 98 [degF] [facility] 06-01-2023 20:06-0400 Body height 190.5 cm [facility] 06-01-2023 20:06-0400 Body mass index (BMI) [Ratio] 34.4 kg/m2 [facility] 06-01-2023 20:06-0400 Body weight 124.96 kg [facility] Encounters Encounter Date Encounter Type Care Provider Facility Start: 12-02-2024 ambulatory Kishan Stone y:[facility] Start: 12-02-2024 End: 12-02-2024 ambulatory Kishan Ford Facility:[facility] Start: 11-15-2024 End: 11-15-2024 ambulatory Kishan Ford Facility:[facility] Start: 07-15-2024 End: 07-15-[address] Kishan Ford MD Work Phone: [facility] Work Phone: Start: 07-15-2024 End: 07-15-[address] Kishan Ford MD -[facility] [place] Work Phone: Start: 07-15-2024 End: 07-15-2024 ambulatory Kishan Ford Facility:[facility] Start: 07-05-2024 End: 07-05-2024 ambulatory Mat Stallings Facility:[facility] Start: 07-05-2024 End: 07-05-[address] Mat Stallings MD -[facility] Work Phone: Start: 06-13-2024 Non-patient / Non-visit Dr. Chiki magallon MD -[facility] Start: 06-13-2024 End: 06-13-[address] Kishan Ford MD Work Phone: [facility] Work Phone: Start: 06-13-2024 End: 06-13-[address] Kishan Ford MD -Cardiovascular Services Work Phone: Start: 06-13-2024 End: 06-13-2024 ambulatory Kishan Ford Facility:[facility] Start: 04-17-2024 End: 04-17-[address] Kishan Ford MD Work Phone: [facility] Work Phone: Start: 04-17-2024 End: 04-17-[address] [facility] Start: 04-17-2024 End: 04-17-2024 ambulatory Kishan Ford Facility:[facility] Start: 03-13-2024 End: 03-13-2024 Patient encounter procedure Kishan BARAHONA -[facility] Work Phone: Start: 03-13-2024 End: 03-13-2024 ambulatory Kishan Ford Facility:[facility] Start: 03-04-2024 End: 03-04-2024 Refill Erica Kay [employer] MA[employer]GER [employer] Work Phone: [facility] [place] Start: 12-25-2023 ambulatory [facility] Facility :[facility] Start: 09-07-2023 End: 09-07-2023 Refill Erica Kay [employer] MA[employer]GER [employer] Work Phone: [facility] Start: 07-24-2023 End: 07-24-2023 Postop follow up visit related to original px Erica Kay [employer] MA[employer]GER [employer] Work Phone: [facility] Comment on above: 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); Hypertension, unspecified type; Wound cellulitis Start: 07-24-2023 End: 07-24-2023 ambulatory ERICA TolentinoJosi LEESKelvin [facility] Start: 07-13-2023 Telephone encounter Erica Mcmullen [employer]ODUCT MA[employer]GER [employer] Work Phone: [facility] Comment on above: Follow-up Start: 07-06-2023 End: 07-06-2023 Postop follow up visit related to original px Erica Kay [employer] MA[employer]GER [employer] Work Phone: [facility] Comment on above: 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); Hypertension, unspecified type Start: 07-06-2023 End: 07-06-2023 ambulatory ERICA KAY [facility] Start: 06-26-2023 End: 06-26-2023 Postop follow up visit related to original px Erica Kay [employer] MA[employer]GER [employer] Work Phone: [facility] Comment on above: 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 Garima Ford Work Phone: [facility] Start: 06-02-2023 Non-patient / Non-visit Dr. Garima Ford Work Phone: [facility] Work Phone: Start: 06-02-2023 End: 06-02-2023 Evaluation and management of inpatient [facility]-Progressive [facility] Unit Work Phone: Start: 05-05-2023 End: 05-05-2023 ambulatory [facility] Work Phone: Start: 05-05-2023 End: 05-05-2023 Patient encounter procedure [facility]-Cardi[facility] Services Work Phone: Start: 04-24-2023 End: 04-24-2023 ambulatory [facility] Work Phone: Start: 04-24-2023 End: 04-24-2023 Patient encounter procedure [facility] Start: 12-26-2022 End: 12-26-2022 ambulatory [facility] Work Phone: Start: 12-26-2022 End: 12-26-2022 Patient encounter procedure [facility] Start: 08-29-2022 End: 08-29-[address] Kishan Ford Work Phone: [facility] Work Phone: Start: 08-29-2022 End: 08-29-[address] Kishan Ford Work Phone: [facility] Work Phone: Start: 07-05-2022 Non-patient / Non-visit Dr. Garima Ford Work Phone: [facility] Start: 07-05-2022 End: 07-05-[address] Kishan Ford Work Phone: [facility] Work Phone: Start: 07-05-2022 End: 07-05-[address] [facility] Start: 05-13-2022 End: 05-13-2022 ambulatory [facility] Work Phone: Start: 05-13-2022 End: 05-13-2022 Patient encounter procedure [facility] Start: 08-25-2021 End: 08-25-2021 Patient encounter procedure [facility] Start: 12-21-2016 Ambulatory Skyler Garcia [facility] y:[facility] Procedures Date Procedure Procedure Detail Performing Clinician Start: 07-15-2024 Total iron binding capacity measurement Dr. Kishan Ford MD Work Phone: Start: 07-15-2024 Vitamin D, 25-hydrox y measurement Dr. Kishan Ford MD Work Phone: Comment on above: Vitamin D StatusDefi ciency: <20 ng/mL (50nmol/L)Insufficiency: 20-30 ng/mL (50-75 nmol/L)Sufficiency: 30-100 ng/mL (75-250 nmol/L)Toxicity: >100 ng/mL (>250 nmol/L) Start: 04-17-2024 Vitamin D, 25-hydrox y measurement Dr. Kishan Ford MD Work Phone: Comment on above: Vitamin D StatusDefi ciency: <20 ng/mL (50nmol/L)Insufficiency: 20-30 ng/mL (50-75 nmol/L)Sufficiency: 30-100 ng/mL (75-250 nmol/L)Toxicity: >100 ng/mL (>250 nmol/L) Start: 06-13-2023 Glucose quantitative blood xcpt reagent strip Reta Peterson MD Work Phone: Start: 06-13-2023 Glucose quantitative blood xcpt reagent strip Reta Peterson MD Work Phone: Start: 06-13-2023 Radiologic exam ches t single view Erica Kay [employer]GER [employer] Work Phone: Start: 06-12-2023 End: 06-13-2023 Basic metabolic panel calcium total Erica Kay [employer] MA[employer]GER [employer] Work Phone: Start: 06-12-2023 Glucose quantitative blood xcpt reagent strip Reta Peterson MD Work Phone: Start: 06-12-2023 Radiologic exam ches t single view Erica Servinjonikelvin [employer]GER [employer] Work Phone: Start: 06-12-2023 Basic metabolic pane l calcium total Erica Servinjonikelvin [employer]GER [employer] Work Phone: Start: 06-11-2023 Glucose quantitative blood xcpt reagent strip Reta Peterson MD Work Phone: Start: 06-11-2023 Glucose quantitative blood xcpt reagent strip Reta Peterson MD Work Phone: Start: 06-11-2023 Radiologic exam ches t single view Erica Servinjonikelvin [employer]GER [employer] Work Phone: Start: 06-11-2023 Basic metabolic pane l calcium total Erica Ferrerjose f [employer] MA[employer]GER [employer] - [employer] Work Phone: Start: 06-10-2023 Glucose quantitative blood xcpt reagent strip Reta Peterson MD Work Phone: Start: 06-10-2023 Glucose quantitative blood xcpt reagent strip Reta Peterson MD Work Phone: Start: 06-10-2023 Glucose quantitative blood xcpt reagent strip Reta Peterson MD Work Phone: Start: 06-10-2023 Radiologic exam ches t single view Erica Kay [employer] MA[employer]GER [employer] Work Phone: Start: 06-10-2023 Basic metabolic pane l calcium total Erica A. Rahul [employer] MA[employer]GER [employer] Work Phone: Start: 06-09-2023 Glucose quantitative blood xcpt reagent strip Reta Peterson MD Work Phone: Start: 06-09-2023 Glucose quantitative blood xcpt reagent strip Reta Peterson MD Work Phone: Start: 06-09-2023 Glucose quantitative blood xcpt reagent strip Reta Peterson MD Work Phone: Start: 06-09-2023 Radiologic exam ches t single view Erica Grace Kay [employer] MA[employer]GER [employer] Work Phone: Start: 06-09-2023 Basic metabolic pane l calcium total Erica AJosi Kay [employer] MA[employer]GER [employer] Work Phone: Start: 06-09-2023 Compatibility each u nit electronic Chris Cornel Arcos PR[employer] MA[employer]GER [employer] Work Phone: Start: 06-08-2023 OXYGEN THERAPY Ying Mcintosh Work Phone: Start: 06-08-2023 Glucose quantitative blood xcpt reagent strip Reta Peterson MD Work Phone: Start: 06-08-2023 Glucose quantitative blood xcpt reagent strip Reta Peterson MD Work Phone: Start: 06-08-2023 Glucose quantitative blood xcpt reagent strip Reta Peterson MD Work Phone: Start: 06-08-2023 Basic metabolic pane l calcium total Erica Rajan. Rahul [employer] MA[employer]GER [employer] Work Phone: Start: 06-08-2023 Radiologic exam ches t single view Erica Kay [employer] MA[employer]GER [employer] Work Phone: Start: 06-08-2023 Ecg routine ecg w/le ast 12 lds trcg only w/o i&r Erica Grace Kay APRN - [employer] Work Phone: Start: 06-07-2023 Glucose quantitative blood xcpt reagent strip Reta Peterson MD Work Phone: Start: 06-07-2023 OXYGEN THERAPY Ying Mcintosh DO Work Phone: Start: 06-07-2023 Glucose quantitative blood xcpt reagent strip Reta Peterson MD Work Phone: Start: 06-07-2023 Radiologic exam ches t single view Ying Mcintosh DO Work Phone: Start: 06-07-2023 OXYGEN THERAPY Ying Mcintosh DO Work Phone: Start: 06-07-2023 End: 06-07-2023 Glucose quantitative blood xcpt reagent strip Reta Peterson MD Work Phone: Start: 06-07-2023 Glucose quantitative blood xcpt reagent strip Reta Peterson MD Work Phone: Start: 06-07-2023 End: 06-07-2023 Potassium serum plasma/whole blood Reta Peterson MD Work Phone: Start: 06-07-2023 Glucose quantitative blood xcpt reagent strip Reta Peterson MD Work Phone: Start: 06-07-2023 End: 06-07-2023 Glucose quantitative blood xcpt reagent strip Reta Peterson MD Work Phone: Start: 06-07-2023 End: 06-07-2023 Potassium serum plasma/whole blood Erica Kay APRN - [employer] Work Phone: Start: 06-07-2023 Ecg routine ecg w/le ast 12 lds trcg only w/o i&r Erica Kay APRN - [employer] Work Phone: Start: 06-07-2023 Glucose quantitative blood xcpt reagent strip Reta Peterson MD Work Phone: Start: 06-07-2023 Radiologic exam ches t single view Erica Oconnor CNP Work Phone: Start: 06-07-2023 Glucose quantitative blood xcpt reagent strip Reta Peterson MD Work Phone: Start: 06-07-2023 End: 06-07-2023 Glucose quantitative blood xcpt reagent strip Reta Peterson MD Work Phone: Start: 06-07-2023 Glucose quantitative blood xcpt reagent strip Reta Peterson MD Work Phone: Start: 06-07-2023 End: 06-07-2023 Basic metabolic panel calcium total Erica Oconnor CNP Work Phone: Start: 06-07-2023 Blood gases any combination ph pco2 po2 co2 hco3 Reta Peterson MD Work Phone: Start: 06-06-2023 End: 06-06-2023 Glucose quantitative blood xcpt reagent strip Reta Peterson MD Work Phone: Start: 06-06-2023 End: 06-06-2023 Glucose quantitative blood xcpt reagent strip Reta Peterson MD Work Phone: Start: 06-06-2023 End: 06-06-2023 Glucose quantitative blood xcpt reagent strip Reta Peterson MD Work Phone: Start: 06-06-2023 End: 06-06-2023 Glucose quantitative blood xcpt reagent strip Reta Peterson MD Work Phone: Start: 06-06-2023 Echo transesophag r- t 2d w/prb img acquisj i&r Erica Oconnor CNP Work Phone: Start: 06-06-2023 End: 06-06-2023 Blood count complete automated Reta Peterson MD Work Phone: Start: 06-06-2023 Radiologic exam ches t single view Erica Kay PRODUCT MANAGER [employer] SERVICES [facility] Work Phone: Start: 06-06-2023 Ecg routine ecg w/le ast 12 lds trcg only w/o i&r Erica Kay APRN [facility] Work Phone: Start: 06-06-2023 Blood gases any combination ph pco2 po2 co2 hco3 Reta Peterson MD Work Phone: Start: 06-06-2023 End: 06-06-2023 Basic metabolic panel calcium total Reta Peterson MD Work Phone: Start: 06-06-2023 Level v surg patholo gy gross&microscopic exam Reta Peterson MD Work Phone: Start: 06-06-2023 End: 06-06-2023 Cabg w/arterial graft three arterial grafts Reta Peterson MD Work Phone: Start: 06-06-2023 End: 06-06-2023 Echo transesophag r-t 2d w/prb img acquisj i&r Reta Peterson MD Work Phone: Start: 06-06-2023 End: 06-06-2023 Thoracoscopy w/dx wedge resexn anato lung resexn Reta Peterson MD Work Phone: Start: 06-05-2023 Thromboplastin time partial plasma/whole blood Erica Kay APRN [facility] Work Phone: Start: 06-05-2023 Antibody screen ERICA MCMULLEN Comment on above: Order Comment: Obtai n PRN and check ionized Ca level if serum Ca level less than 8.0 Performed By: #### L [id number] #### [employer] Cutting Supervisor: LUCINA FERRERA ([phone]) [facility] ([address] Start: 06-05-2023 ABO and Rh group [Ty pe] in Blood by Confirmatory method Chris Unger Memolane PRODUCT MANAGER [employer]CIAL SERVICES - [facility] Work Phone: Start: 06-05-2023 Blood typing serologic abo Chris Arcos [employer]ODUCT MA[employer]GER [employer] Work Phone: Start: 06-05-2023 BEDSIDE SPIROMETRY Andr yaya Florez PR[employer] MA[employer]GER [employer] - [employer] Work Phone: Start: 06-05-2023 Radiologic exam ches t single view Erica Grace Kay [employer] MA[employer]GER [employer] - [employer] Work Phone: Start: 06-05-2023 Thromboplastin time partial plasma/whole blood Erica RajanJosi Malathijonikelvin [employer] MA[employer]GER [employer] - [employer] Work Phone: Start: 06-05-2023 Basic metabolic pane l calcium total Lucas Florez PR[employer] MA[employer]GER [employer] - [employer] Work Phone: Start: 06-04-2023 Thromboplastin time partial plasma/whole blood Erica TolentinoJosi Rahul [employer] MA[employer]GER [employer] - [employer] Work Phone: Start: 06-04-2023 Thromboplastin time partial plasma/whole blood Erica RajanJosi Rahul PR[employer] MA[employer]GER [employer] - [employer] Work Phone: Start: 06-04-2023 Echo tthrc r-t 2d w/wom-mode compl spec&colr d Lucas Florez [employer] MA[employer]GER [employer] - [employer] Work Phone: Start: 06-04-2023 Thromboplastin time partial plasma/whole blood Erica TolentinoJosi Rahul PRODUCT MANAGER [employer] - [employer] Work Phone: Start: 06-04-2023 Radiologic exam ches t single view Erica RajanJosi Ferrerdrakekelvin PR[employer] MA[employer]GER [employer] - [employer] Work Phone: Start: 06-04-2023 Ecg routine ecg w/le ast 12 lds trcg only w/o i&r Erica RajanJosi Rahul PR[employer] MA[employer]GER [employer] - [employer] Work Phone: Start: 06-04-2023 Basic metabolic pane l calcium total Lucas Florez PRODUCT MA[employer]GER [employer] - [employer] Work Phone: Start: 06-03-2023 Thromboplastin time partial plasma/whole blood Erica RajanJosi Ferrerthomassera PR[employer] MA[employer]GER [employer] - [employer] Work Phone: Start: 06-03-2023 Ct thorax w/o contra st material Lucas Florez PRODUCT MA[employer]GER [employer] - [employer] Work Phone: Start: 06-03-2023 Iadna s aureus methi cillin resist amp probe tq Lucas Florez PRODUCT MANAGER [employer] SERVICES - [employer] Work Phone: Start: 06-03-2023 End: 06-03-2023 Thromboplastin time partial plasma/whole blood Erica Kay PR[employer] MA[employer]GER [employer] - [employer] Work Phone: Start: 06-03-2023 Radiologic exam ches t single view Erica Kay PR[employer] MA[employer]GER [employer] - [employer] Work Phone: Start: 06-03-2023 Ecg routine ecg w/le ast 12 lds trcg only w/o i&r Erica Kay PRODUCT MA[employer]GER [employer] - [employer] Work Phone: Start: 06-02-2023 End: 06-03-2023 Basic metabolic panel calcium total Erica Kay PRODUCT MANAGER [employer] - [employer] Work Phone: Start: 06-02-2023 Radiologic exam ches t single view Erica Kay PRODUCT MA[employer]GER [employer] - [employer] Work Phone: Start: 06-02-2023 Ecg routine ecg w/le ast 12 lds trcg only w/o i&r Erica Kay PR[employer] MANAGER [employer] - [employer] Work Phone: Start: 06-01-2023 Plain chest X-ray History of coronary artery bypass grafting S/P CABG (coronary artery bypass graft) Reta Peterson MD Work Phone: History of coronary artery bypass grafting S/P CABG (coronary artery bypass graft) Erica Kay PRODUCT MANAGER [employer] - [employer] Work Phone: History of coronary artery bypass grafting S/P CABG (coronary artery bypass graft) Erica Kay PRODUCT MANAGER [employer] - [employer] Work Phone: History of coronary artery bypass grafting S/P CABG (coronary artery bypass graft) Erica Kay PRODUCT MANAGER [employer] - [employer] Work Phone: Plan of Treatment Date Care Activity Detail Author Start: 08-14-2028 DTaP/Tdap/Td Vaccines (2 - Td or Tdap) DTaP/Tdap/Td Vaccines (2 - Td or Tdap) [facility] Start: 08-14-2028 [facility] Start: 06-12-2024 Diabetes: Estimated Glomerular Filtration Rate for Kidney Health Diabetes: Estimated Glomerular Filtration Rate for Kidney Health [facility] Start: 10-15-2023 COVID-19 Vaccine ( season) COVID-19 Vaccine () [facility] Start: 10-15-2023 Influenza vaccination Influenza Vaccine (#1) [facility] Start: 07-24-2023 End: 07-24-2023 Telemedicine consultation with patient 07/24/2023 12:00 PM EDT Telemedicine [facility] [address] [place] [id number] Erica Kay, PRODUCT MANAGER [employer] - [employer] [address] [place] [address] [facility] Start: 07-06-2023 End: 07-06-2023 Telemedicine consultation with patient 07/06/2023 12:30 PM EDT Telemedicine [facility] [address] [place] [address] Erica Kay, PRODUCT MANAGER FINANCIAL SERVICES - [employer]ERRICK [employer]AT CAPTAIN [address] [place] [address] [facility] Start: 06-26-2023 End: 06-26-2023 ambulatory [facility] Start: 06-02-2023 [facility] Start: 06-02-2023 Patient discharge [facility] Start: 06-02-2023 [facility] Start: 06-02-2023 [facility] Start: 06-02-2023 Following clinical pathway protocol [facility] Start: 06-02-2023 Ambulation without limitation [facility] Start: 06-02-2023 Assessment of risk of venous thromboembolism [facility] Start: 06-02-2023 Care regimes management [facility] Start: 06-02-2023 Insertion of catheter into peripheral vein [facility] Start: 06-02-2023 Measuring intake and output [facility] Start: 06-02-2023 Notification of physician [facility] Start: 06-02-2023 Providing care according to standard [facility] Start: 06-02-2023 Referral to software project lead [facility] Start: 06-02-2023 [facility] Start: 06-02-2023 Verification routine [facility] Start: 06-02-2023 Admission procedure [facility] Start: 06-01-2023 Hospital admission, emergency, from emergency room, medical nature [facility] Start: 06-01-2023 [facility] Start: 10-14-2022 COVID-19 Vaccine ( season) COVID-19 Vaccine ( season) [facility] Start: 10-14-2022 [facility] Start: 11-08-2017 Zoster Vaccines (2 of 2) Zoster Vaccines (2 of 2) [facility] Start: 11-08-2017 [facility] Start: 08-24-2015 RSV Immunization for Adults (1 - 1-dose 75+ series) RSV Immunization for Adults (1 - 1-dose 75+ series) [facility] Start: 2000 RSV Immunization aged 60 or older (1 - 1-dose 60+ series) RSV Immunization aged 60 or older (1 - 1-dose 60+ series) [facility] Start: 2000 [facility] Start: 1958 Diabetes: Urine Albumin-Creatinine Ratio for Kidney Health Diabetes: Urine Albumin-Creatinine Ratio for Kidney Health [facility] Start: 1952 Depression Screening Depression Screening [facility] Start: 1952 [facility] Start: 1940 Medicare Annual Wellness (AWV) Medicare Annual Wellness (AWV) [facility] Start: 1940 [facility] Patient referral [facility] Work Phone: Immunizations Immunization Date Immunization Notes Care Provider Bashir neves 11-11-2022 influenza virus vacc ine, unspecified formulation Erica Kay PRODUCT MANAGER [employer] SERVICES - [employer] CAPTAIN Work Phone: [facility] Payers Date Payer Category Payer Self-pay [id number] 2020 Blue Cross [facility] Care - [facility] BLUE CROSS [id number] 2020 Unknown [id number] 2020 Unknown [id number] 2010 Unknown [id number] 2005 Medicare [id number] 2005 Medicare [id number] Unknown [id number] Unknown [id number] [id number] [id number] Unknown [id number] [id number] [id number] Unknown [id number] Unknown [id number] [id number] Unknown [id number] [id number] Unknown [id number] [id number] Unknown [id number] [id number] Unknown [id number] [id number] Unknown [id number] [id number] Social History Date Type Detail Facility Start: 08-29-2014 End: 06-02-2023 Tobacco smoking status NHIS Unknown if ever smoked [facility] Start: 1940 Sex Assigned At Male W [facility] Start: 06-02-2023 End: 09-06-2023 Tobacco smoking status CTIS Never smoked tobacco [facility] Start: 06-02-2023 Tobacco use and exposure Smokeless tobacco non-user [facility] Start: 06-09-2023 End: 07-24-2023 History of Social function [facility] Start: 06-09-2023 End: 07-24-2023 [facility] Utilities [facility] Has the [employer], [employer], or [employer] threatened to shut off services in your home in past 12Mo No [facility] How often to you hav e a drink containing alcohol? Never [facility] How many standard drinks containing alcohol do you have on a typical day? [facility] (I/We) worried wheth er (my/our) food would run out before (I/we) got money to buy more. Never true [facility] Start: 1940 Sex Assigned At [facility] Start: 06-02-2023 End: 05-01-2024 Sex Male (finding) [facility] Medical Equipment Procedure Code Equipment Code Equipment Origin al Text Equipment Identifier Dates 0.01-0.2 mcg/kg/ min 120 kg (1.125-22.5 mL/hr, rounded to 1.13-22.5 mL/hr), IntraVENous, Continuous PRN, Initiate if Cardiac Index above 2.0; SBP less than 90 mmHg or MAP less than 65 mmHg; and PAD above 18, Starting on Mon06/06/23 at 1216, Recovery & On Unit, Infuse via central line. If Titrate Infusion? is No: Disregard instructions below. If Titrate infusion? is Yes: Titrate in increments of 0.02 mcg/kg/min no faster than every 5 minutes to goal. When approaching therapeutic goal or weaning off, smaller titration increments of 0.01 mcg/kg/min no faster than every 5 minutes may be used to maintain goal. , Goal Maintain SBP greater than 90 and less than 130 Goal Maintain MAP greater than 65 and less than 80, Titrate Infusion: Yes, Infusion Dose: Other, Infusion Dose: 0.01 mcg/kg/min, Goal of Therapy is: MAP great than 65 mmHg, SBP greater than 90 mmHg, Contact Provider if: Patient is receiving the maximum dose and is not achieving the goal of therapy [id number] Start: 06-06-2023 End: 06-09-2023 Goals Date Patient Goal Desired Activity /State Functional Status Date Assessment Result Facility 06-02-2023 Functional status Bathroom Privilege [facility] Work Phone: Mental Status Date Assessment Result Facility 06-02-2023 Cognitive function Voice/Name [facility] Work Phone: 06-01-2023 Cognitive function Awake;Alert;A ppropriate;Fol lows Commands [facility] Work Phone: Clinical Notes 06-01-2023 to 07-05-2024 Note Date & Type Note Facility 07-05-2024 Evaluation note Diagnosis Onset Date Resolution Aortic valve stenosis acute July 05, 2024 10:31am Edema of left lower extremity acute July 05, 2024 10:31am Hyperlipidemia acute July 05, 2024 10:31am CAD (coronary atherosclerotic disease) chronic June 10:31am HTN (hypertension) chronic July 052024 10:31am [facility] Work Phone: 1(505) 556-151901-29-2025 Evaluation note* Diagnosis Onset Date Resolution Status Admit Date Hyperlipidemia acute March 132024 10:54am CAD (coronary atheroscleroti c disease) chronic March 13 10:54am Cellulitis of left lower leg chronic March 13, 2024 10:54am DM II (diabetes mellitus, ty pe II), controlled chronic March 13 10:54am HTN (hypertension) chronic Febuar 2024 10:54am [facility] Work Phone: 1(278) 766-975406-10-2024 History of Present illness Narrative* Ercia Kay, CHRISTIANO - DERRICK BOAT CAPTAIN - 07/24/2023 12:00 PM EDT Images from the original note were not included. [facility] Group: [facility] [address] [facility] [address] Dept: [phone] Dept Loc: [phone] Visit type: Established patient Reason for Visit: Follow-up Assessment and Plan 1. S/P CABG (coronary artery bypass graft) 2. Hypertension, unspecified type 3. Wound cellulitis 06/06/23: Dr. Peterson- CABGx 4 (HERNANDEZ-LAD, SVG-PDA, SVG- RAMUS, SVG-DIAG1), LLE EVH, LLL wedge resection, pericardial cyst resection -Swelling in LLE gone, redness improving. -Incisions healing well. -No pain. -Progressing physically. -Cards appointment coming up. POD#48 Day from Discharge (06/13/23) #41 -Reviewed current meds: Continue current meds. -Surgical Incisions: Per patient-healing appropriately, well approximated, no s/s of infection. -Physical therapy as outlined in discharge instructions.Ok to attend Cardiac Rehab and Ok to drive. -Acute Post-Operative Pain controlled. Patient no longer taking narcotic opioid medication. Tx plan: Over The Counter-Tylenol (acetaminophen) 500 mg 1-2 tablets every 6 hours. No more than 4,000 mg in 24 hour period, Over The Counter-Motrin (ibuprofen) 200-400 mg by mouth every 4-6 hours (or) 600-800mg every 8 hours. No more than 3,200 mg per day, Over The Counter-pain patches (Salon pas) may used as needed next to incision but not directly on your incision, and Ice packs applied for 20 minutes, then off for at least 20 minutes before reapplying. Weight restriction measures 1-4 weeks from date of surgery- 10lbs weight restriction: 5-8 weeks from date of surgery- 20lbs weight restriction: 9-12 weeks from date of surgery-30lbs weight restriction approximate end date: Disposition: Follow up PRN. Patient verbalized understanding of plan and stated they would call if any questions or concerns arise. Treatment Team: PCP: Kishan Ford MD Patient was identified and seen today via Telehealth by agreement and consent. I used the followingTelehealth technology: Audio capability only. Total length of call 12 minutes. The patient was offered and advised video for a more comprehensive evaluation, but the patient declined or was unable touse video. Patient location: Patient Location: Home. This patient encounter is appropriate and reasonable under the circumstances: Distance . The patient has been advised of the potential risks and limitations of this mode of treatment (including but not limited to the absence of in-person examination) and has agreed to be treated in a remote fashion in spite of them. Any and all of the patient's/patient's family's questions on this issue have been answered and I have made no promises or guarantees to the patient. The patient has also been advised to contact this office for worsening conditions or problems, and seek emergency medical treatment and/or call 911 if the patient deems either n ecessary. The patient stated that they are currently in the [facility]. If the patient is a minor, permission has been obtained by the parent or guardian for the patient to receive medical care atthis visit. Subjective HPI: 82 y.o. with pmHx of HLD, HTN, T2DM who was transffered from outside hospital for CABG consideration. Per paper chart brought with the patient, he developed midsternal chest pressure, coughing, burping, and sweating while riding his lawnmower. By the time the patient arrived to the ED - chest pressure had slightly improved. Cardiac enzymes were elevated and he was admitted as NSTEMI and Cardiology was consulted. Cardiac cath was then preformed which showed: Distal LM 60-70% stenosis left main bifurcating into LAD, ramus and left circumflex. LAD with ostial and proximal ~70%. Distal LAD tcyyau49%, ostial LCx 70%, RCA large dominant , calcified with proximal RCA thrombus: JIMMY-3 flow in the RCA. He was transferred to [facility] for CABG consideration. Full workup completed at [facility], CT chest revealed lung nodule. Surgery planned for 06/06/23. Patient required low dose pressor support post-op for a couple of days and HFNC. Weaned off of both by POD #3, then began to progress well. Required diuresis. Stayed inpatient to gain strength and be sure would be able to help when he would return home. A lot of time was spent educating both patient and on home going instructions. Patient discharged home on POD #07 with and daughter. 06/25/23: Reports he has a red area on EVH leg that has expanded. He was seen by his PCP who was concerned for infection. Initially started on Doxycycline. The redness continued to expand/move. He was seen again by PCP, given 1g ceftriaxone injection and started on Bactrim on Monday. He denies fever/chills.The redness is about the same from Monday. Denies expanding swelling. Recommended he continue Bactrim and elevate leg when resting. Continue to monitor temperature. He has appt tomorrow with our office. Will be assessed at that time. 06/26/23: Patient presents to office with for post-op follow up. He has been doing well at home, major concern is his LLE, near his most distal EVH site, he has an area of redness. He has bilateral LE edema but L>R. No drainage noted. His PCP has put him on PO bactrim, which he is only a couple days into. Otherwise, he is progressing physically. His pain is controlled. Home Health is following. 07/06/23: Called patient to follow up on. Cardiac buck, patient doing well. Major concern has been an area ofredness on LLE. Since last visit, it has gotten larger and spread up his. He has seen his PCP and also presented to [place] ED to be assessed. He was admitted and treated with IV ABX, per patient vanc and ceftriaxone. Workup was negative for DVT and a CT scan was performed but the patient is unsureif that showed anything. Patient also states that he was seen by Infectious Diseases. He was discharged on PO ABX, then these were switched to zyvox by his PCP and he is still on this course. He has another appointment with his PCP on Monday. 07/13/23: Called patient to follow up. Last week had tele-visit, major concern was redness and swelling in LLE that had been progressing. Had been on multiple ABX and IV ABX at [facility]. PCP put on PO zyvox which patient had just started at the time of last conversation. Though the redness and swelling were in the same leg as the EVH sites, did not seem to correlate with incisions. Today, patient states that redness and swelling are much improved. Small amount of swelling remains. He is progressing well physically with Home Health PT. Briefly discussed Cardiac Rehab and will further discuss at future appointment. OK to drive. Reviewed sternal precautions and weight restrictions. Will schedule patient for phone in [address] Surgery. 07/24/23: Spoke with patient and on phone for follow up. LLE is doing much better, swelling is gone, redness almost resolved. All incisions healing well. Denies pain and SOB. Walking and improving physically. He has an appointment approaching with his [employer] in [place]. Review of Systems Constitutional: Negative for chills, diaphoresis and fever. Respiratory: Negative for cough, shortness of breath and wheezing. Cardiovascular: Negative for palpitations and leg swelling. Gastrointestinal: Negative for abdominal distention, abdominal pain, constipation, diarrhea, nauseaand vomiting. Neurological: Negative for dizziness and light-headedness. No Known Allergies Outpatient Medications Prior to Visit Medication Sig Dispense Refill ascorbic acid (Vitamin C) 1000 MG tablet Take 1,000 mg by mouth daily. aspirin 81 MG EC tablet Take 81 mg by mouth daily. atorvastatin (Lipitor) 40 MG tablet Take 40 mg by mouth daily. Cholecalciferol 25 MCG (1000 UT) chewable tablet Chew 25 mcg daily. co-enzyme Q-10 30 MG capsule Take 30 mg by mouth daily. Patient states he takes 200mg daily. furosemide (Lasix) 40 MG tablet Take 1 tablet (40 mg) by mouth daily for 5 days. 5 tablet 0 furosemide (Lasix) 40 MG tablet Take 40 mg by mouth daily. Patient states he will continue lasix . metFORMIN, OSM, (Fortamet) 500 MG 24 hr tablet Take 500 mg by mouth with evening meal. Do not crush, chew, or split. Patient states he takes twice a day, one before breakfast, and before evening meal. Patient states he takes twice/day. metoprolol tartrate (Lopressor) 25 MG tablet Take 1 tablet (25 mg) by mouth 2 times daily. 60 tablet 2 niacinamide 500 MG tablet Take 500 mg by mouth in the morning and 500 mg in the evening. Take with meals. Patient states he takes once/day. . potassium chloride CR (Klor-Con M10) 10 MEQ ER tablet Take 20 mEq by mouth daily. Do not crush or chew. No facility-administered medications prior to visit. Past Medical History: Diagnosis Date Coronary artery disease Diabetes mellitus (HCC) Hypercholesteremia Hypertension Objective Patient reported: Failed to redirect to the Timeline version of the [employer] Smart[employer]. There were no vitals filed for this visit. Wt Readings from Last 3 Encounters: 06/26/23 273 lb (124 kg) 06/13/23 272 lb (123 kg) Physical exam deferred due to virtual visit-with audio (telephone) capabilities only. Data Reviewed and Summarized Labs/Imaging/Testing: reviewed EMR, see A&P for pertinent diagnostic results related to office visit CHRISTIANO Lopes CNP documented in this [facility]05-30-2024 Telephone encounter Note* Telephone Encounter - CHRISTIANO Rosario CNP - 07/13/2023 1:22 PM EDT Called patient to follow up. Last week had tele-visit, major concern was redness and swelling in LLE that had been progressing. Had been on multiple ABX and IV ABX at [facility]. PCP put on PO zyvox which patient had just started at the time of last conversation. Though the redness and swelling were in the same leg as the [facility] sites, did not seem to correlate with incisions. Today, patient states that redness and swelling are much improved. Small amount of swelling remains. He is progressing well physically with Home Health PT. Briefly discussed Cardiac Rehab and will further discuss at future appointment. OK to drive. Reviewed sternal precautions and weight restrictions. Will schedule patient for phone in [address] Surgery[address] CHRISTIANO Lopes CNP 07/13/23 [id number] Miscellaneous Notes* Telephone Encounter - CHRISTIANO Rosario CNP - 07/13/2023 1:22 PM EDT Called patient to follow up. Last week had tele-visit, major concern was redness and swelling in LLE that had been progressing. Had been on multiple ABX and IV ABX at [facility]. PCP put on PO zyvox which patient had just started at the time of last conversation. Though the redness and swelling were in the same leg as the EVH sites, did not seem to correlate with incisions. Today, patient states that redness and swelling are much improved. Small amount of swelling remains. He is progressing well physically with Home Health PT. Briefly discussed Cardiac Rehab and will further discuss at future appointment. OK to drive. Reviewed sternal precautions and weight restrictions. Will schedule patient for phone in [address] Surgery[address] CHRISTIANO Lopes CNP 07/13/23 documented in this encounterSRiverview Health [id number] History of Present illness Narrative* CHRISTIANO Rosario CNP - 07/06/2023 12:30 PM EDT Images from the original note were not included. [facility] Medical Group: [facility] [address] [place] [address] Dept: [phone] Dept Loc: [phone] Visit type: Established patient Reason for Visit: Follow-up Assessment and Plan 1. S/P CABG (coronary artery bypass graft) 2. Hypertension, unspecified type 06/06/23: Dr. Peterson- CABGx 4 (HERNANDEZ-LAD, SVG-PDA, SVG- RAMUS, SVG-DIAG1), LLE EVH, LLL wedge resection, pericardial cyst resection -Continue current ABX course. -Will request pictures to document in our charting and assess. -If patient feels necessary, recommend being seen in [place] [facility] but for convenience, he has been going to PCP in [facility]. -Doesn't seem to be related to EVH site, no drainage from site. -Will follow up with patient early next week to check progress. POD#30 Day from Discharge (06/13/23) #23 -Reviewed current meds: Continue current medications, continue ABX. -Surgical Incisions: Per patient-healing appropriately, well approximated, no s/s of infection. -Physical therapy as outlined in discharge instructions.Ok to attend Cardiac Rehab and Ok to drive. -Acute Post-Operative Pain controlled. Patient no longer taking narcotic opioid medication. Tx plan: Over The Counter-Tylenol (acetaminophen) 500 mg 1-2 tablets every 6 hours. No more than 4,000 mg in 24 hour period, Over The Counter-Motrin (ibuprofen) 200-400 mg by mouth every 4-6 hours (or) 600-800mg every 8 hours. No more than 3,200 mg per day, Over The Counter-pain patches (Salon pas) may used as needed next to incision but not directly on your incision, and Ice packs applied for 20 minutes, then off for at least 20 minutes before reapplying. Weight restriction measures 1-4 weeks from date of surgery- 10lbs weight restriction: 5-8 weeks from date of surgery- 20lbs weight restriction: 9-12 weeks from date of surgery-30lbs weight restriction approximate end date: Disposition: Will call patient next week to check up on. Follow up PRN. Patient verbalized understanding of plan and stated they would call if any questions or concerns arise. Treatment Team: PCP: Kishan Ford MD Patient was identified and seen today via Telehealth by agreement and consent. I used the followingTelehealth technology: Audio capability only. Total length of call 20 minutes. The patient was offered and advised video for a more comprehensive evaluation, but the patient declined or was unable touse video. Patient location: Patient Location: Home. This patient encounter is appropriate and reasonable under the circumstances: Seen in office recently and distance . The patient has been advised of the potential risks and limitations of this mode of treatment (including but not limited to the absence of in-person examination) and has agreed to be treated in a remote fashion in spite of them. Any and all of the patient's/patient's family's questions on this issue have been answered and I have made no promises or guarantees to the patient. The patient has also been advised to contact this office for worsening conditions or problems, and seek emergency medical treatment and/or call 911 if the patient deems either necessary. The patient stated that they are currently in the state [facility]. If the patient is a minor, permission has been obtained by the parent or guardian for the patient to receive medical care at this visit. Subjective HPI: 82 y.o. with pmHx of HLD, HTN, T2DM who was transffered from outside hospital for CABG consideration. Per paper chart brought with the patient, he developed midsternal chest pressure, coughing, burping, and sweating while riding his lawnmower. By the time the patient arrived to the ED - chest pressure had slightly improved. Cardiac enzymes were elevated and he was admitted as NSTEMI and Cardiology was consulted. Cardiac cath was then preformed which showed: Distal LM 60-70% stenosis left main bifurcating into LAD, ramus and left circumflex. LAD with ostial and proximal ~70%. Distal LAD %, ostial LCx 70%, RCA large dominant , calcified with proximal RCA thrombus: JIMMY-3 flow in the RCA. He was transferred to [facility] for CABG consideration. Full workup completed at [facility], CT chest revealed lung nodule. Surgery planned for 06/06/23. Patient required low dose pressor support post-op for a couple of days and HFNC. Weaned off of both by POD #3, then began to progress well. Required diuresis. Stayed inpatient to gain strength and be sure would be able to help when he would return home. A lot of time was spent educating both patient and on home going instructions. Patient discharged home on POD #07 with and daughter. 06/25/23: Reports he has a red area on EVH leg that has expanded. He was seen by his PCP who was concerned for infection. Initially started on Doxycycline. The redness continued to expand/move. He was seen again by PCP, given 1g ceftriaxone injection and started on Bactrim on Monday. He denies fever/chills.The redness is about the same from Monday. Denies expanding swelling. Recommended he continue Bactrim and elevate leg when resting. Continue to monitor temperature. He has appt tomorrow with our office. Will be assessed at that time. 06/26/23: Patient presents to office with for post-op follow up. He has been doing well at home, major concern is his LLE, near his most distal EVH site, he has an area of redness. He has bilateral LE edema but L>R. No drainage noted. His PCP has put him on PO bactrim, which he is only a couple days into. Otherwise, he is progressing physically. His pain is controlled. Home Health is following. 07/06/23: Called patient to follow up on. Cardiac buck, patient doing well. Major concern has been an area ofredness on LLE. Since last visit, it has gotten larger and spread up his. He has seen his PCP and also presented to [place] ED to be assessed. He was admitted and treated with IV ABX, per patient vanc and ceftriaxone. Workup was negative for DVT and a CT scan was performed but the patient is unsureif that showed anything. Patient also states that he was seen by Infectious Diseases. He was discharged on PO ABX, then these were switched to zyvox by his PCP and he is still on this course. He has another appointment with his PCP on Monday. Review of Systems Constitutional: Negative for chills, diaphoresis and fever. Respiratory: Negative for cough, shortness of breath and wheezing. Cardiovascular: Positive for leg swelling. Negative for palpitations. Skin: Positive for color change. Redness, warmth LLE. Neurological: Negative for dizziness and light-headedness. No Known Allergies Outpatient Medications Prior to Visit Medication Sig Dispense Refill ascorbic acid (Vitamin C) 1000 MG tablet Take 1,000 mg by mouth daily. aspirin 81 MG EC tablet Take 81 mg by mouth daily. atorvastatin (Lipitor) 40 MG tablet Take 40 mg by mouth daily. Cholecalciferol 25 MCG (1000 UT) chewable tablet Chew 25 mcg daily. co-enzyme Q-10 30 MG capsule Take 30 mg by mouth daily. Patient states he takes 200mg daily. furosemide (Lasix) 40 MG tablet Take 1 tablet (40 mg) by mouth daily for 5 days. 5 tablet 0 furosemide (Lasix) 40 MG tablet Take 40 mg by mouth daily. Patient states he will continue lasix . metFORMIN, OSM, (Fortamet) 500 MG 24 hr tablet Take 500 mg by mouth with evening meal. Do not crush, chew, or split. Patient states he takes twice a day, one before breakfast, and before evening meal. Patient states he takes twice/day. metoprolol tartrate (Lopressor) 25 MG tablet Take 1 tablet (25 mg) by mouth 2 times daily. 60 tablet 2 niacinamide 500 MG tablet Take 500 mg by mouth in the morning and 500 mg in the evening. Take with meals. Patient states he takes once/day. . potassium chloride CR (Klor-Con M10) 10 MEQ ER tablet Take 20 mEq by mouth daily. Do not crush or chew. No facility-administered medications prior to visit. Past Medical History: Diagnosis Date Coronary artery disease Diabetes mellitus (HCC) Hypercholesteremia Hypertension Objective Patient reported: Failed to redirect to the Timeline version of the [employer] SmartLink. There were no vitals filed for this visit. Wt Readings from Last 3 Encounters: 06/26/23 273 lb (124 kg) 06/13/23 272 lb (123 kg) Physical exam deferred due to virtual visit-with audio (telephone) capabilities only. Data Reviewed and Summarized Labs/Imaging/Testing: reviewed EMR, see A&P for pertinent diagnostic results related to office visit CHRISTIANO Lopes CNP documented in this [facility]05-13-2024 History of Present illness Narrative* CHRISTIANO Rosario CNP - 06/26/2023 11:30 AM EDT Images from the original note were not included. [facility]: [facility] [address] [facility] [address] [place] [address] Dept: [phone] Dept Loc: [phone] Visit type: Established patient Reason for Visit: Follow-up Assessment and Plan 1. S/P CABG (coronary artery bypass graft) 2. Hypertension, unspecified type 06/06/23: Dr. Peterson- CABGx 4 (HERNANDEZ-LAD, SVG-PDA, SVG- RAMUS, SVG-DIAG1), LLE EVH, LLL wedge resection, pericardial cyst resection -Continue prescribed bactrim for redness on LLE near EVH site. -Lasix and K supplement to help with swelling. -Patient to reach out to CT Surgery and PCP (since more local to them in [place]) if leg redness and swelling does not improve over the course of the next few days with ABX and lasix. -MSI healing well, tape removed, steri strips removed from chest tube sites. -Continue other medications. -Pain tolerable. -Home Health, wants to go to Cardiac Rehab when Home Health signs off. POD#20 Day from Discharge (06/13/23) #13 -Reviewed current meds: Continue current meds. -Surgical Incisions: healing appropriately, well approximated, no s/s of infection. -Physical therapy as outlined in discharge instructions.Not ready for Cardiac Rehab and Not ready to drive. -Acute Post-Operative Pain controlled. Patient no longer taking narcotic opioid medication. Tx plan: Over The Counter-Tylenol (acetaminophen) 500 mg 1-2 tablets every 6 hours. No more than 4,000 mg in 24 hour period, Over The Counter-Motrin (ibuprofen) 200-400 mg by mouth every 4-6 hours (or) 600-800mg every 8 hours. No more than 3,200 mg per day, Over The Counter-pain patches (Salon pas) may used as needed next to incision but not directly on your incision, and Ice packs applied for 20 minutes, then off for at least 20 minutes before reapplying. Weight restriction measures 1-4 weeks from date of surgery- 10lbs weight restriction: 5-8 weeks from date of surgery- 20lbs weight restriction: 9-12 weeks from date of surgery-30lbs weight restriction approximate end date: Disposition: Phone call on 07/06/[address] Surgery and PRN. Follow up with PCP PRN. Schedule appointment with Cardiology in [place]. Patient verbalized understanding of plan and stated they would call if any questions or concerns arise. Treatment Team: PCP: Kishan Ford MD Subjective HPI: 82 y.o. with pmHx of HLD, HTN, T2DM who was transffered from outside hospital for CABG consideration. Per paper chart brought with the patient, he developed midsternal chest pressure, coughing, burping, and sweating while riding his lawnmower. By the time the patient arrived to the ED - chest pressure had slightly improved. Cardiac enzymes were elevated and he was admitted as NSTEMI and Cardiology was consulted. Cardiac cath was then preformed which showed: Distal LM 60-70% stenosis left main bifurcating into LAD, ramus and left circumflex. LAD with ostial and proximal ~70%. Distal LAD fuutai44%, ostial LCx 70%, RCA large dominant , calcified with proximal RCA thrombus: JIMMY-3 flow in the RCA. He was transferred to [facility] for CABG consideration. Full workup completed at [facility], CT chest revealed lung nodule. Surgery planned for 06/06/23. Patient required low dose pressor support post-op for a couple of days and HFNC. Weaned off of both by POD #3, then began to progress well. Required diuresis. Stayed inpatient to gain strength and be sure would be able to help when he would return home. A lot of time was spent educating both patient and on home going instructions. Patient discharged home on POD #07 with and daughter. 06/25/23: Reports he has a red area on EVH leg that has expanded. He was seen by his PCP who was concerned for infection. Initially started on Doxycycline. The redness continued to expand/move. He was seen again by PCP, given 1g ceftriaxone injection and started on Bactrim on Monday. He denies fever/chills.The redness is about the same from Monday. Denies expanding swelling. Recommended he continue Bactrim and elevate leg when resting. Continue to monitor temperature. He has appt tomorrow with our office. Will be assessed at that time. 06/26/23: Patient presents to office with for post-op follow up. He has been doing well at home, major concern is his LLE, near his most distal EVH site, he has an area of redness. He has bilateral LE edema but L>R. No drainage noted. His PCP has put him on PO bactrim, which he is only a couple days into. Otherwise, he is progressing physically. His pain is controlled. Home Health is following. Review of Systems Constitutional: Positive for fatigue. Negative for chills, diaphoresis and fever. Respiratory: Negative for cough, shortness of breath and wheezing. Cardiovascular: Positive for leg swelling. Negative for palpitations. Gastrointestinal: Negative for abdominal distention, abdominal pain, constipation, diarrhea, nauseaand vomiting. Skin: Positive for color change and wound. Neurological: Negative for dizziness and light-headedness. No Known Allergies Outpatient Medications Prior to Visit Medication Sig Dispense Refill acetaminophen (Tylenol) 500 MG tablet Take 2 tablets (1,000 mg) by mouth 3 times daily for 21 days.126 tablet 0 ascorbic acid (Vitamin C) 1000 MG tablet Take 1,000 mg by mouth daily. aspirin 81 MG EC tablet Take 81 mg by mouth daily. atorvastatin (Lipitor) 40 MG tablet Take 40 mg by mouth daily. Cholecalciferol 25 MCG (1000 UT) chewable tablet Chew 25 mcg daily. co-enzyme Q-10 30 MG capsule Take 30 mg by mouth daily. Patient states he takes 200mg daily. metFORMIN, OSM, (Fortamet) 500 MG 24 hr tablet Take 500 mg by mouth with evening meal. Do not crush, chew, or split. Patient states he takes twice a day, one before breakfast, and before evening meal. metoprolol tartrate (Lopressor) 25 MG tablet Take 1 tablet (25 mg) by mouth 2 times daily. 60 tablet 2 niacinamide 500 MG tablet Take 500 mg by mouth in the morning and 500 mg in the evening. Take with meals. Patient states he takes once/day. . furosemide (Lasix) 40 MG tablet Take 1 tablet (40 mg) by mouth daily for 7 days. 7 tablet 0 potassium chloride CR (Klor-Con M20) 20 MEQ ER tablet Take 1 tablet (20 mEq) by mouth daily for 7 days. Do not crush or chew. Take daily while taking lasix. 7 tablet 0 No facility-administered medications prior to visit. Past Medical History: Diagnosis Date Coronary artery disease Diabetes mellitus (HCC) Hypercholesteremia Hypertension Objective Patient reported: Failed to redirect to the Timeline version of the [employer] Smart[employer]. Vitals: 06/26/23 1126 BP: 138/75 Pulse: 76 Wt Readings from Last 3 Encounters: 06/26/23 273 lb (124 kg) 06/13/23 272 lb (123 kg) Physical Exam Vitals reviewed. Cardiovascular: Rate and Rhythm: Normal rate and regular rhythm. Pulses: Normal pulses. Heart sounds: No murmur heard. Pulmonary: Effort: Pulmonary effort is normal. Breath sounds: No wheezing, rhonchi or rales. Abdominal: General: There is no distension. Palpations: Abdomen is soft. Musculoskeletal: Right lower leg: Edema present. Left lower leg: Edema present. Skin: General: Skin is warm and dry. Capillary Refill: Capillary refill takes less than 2 seconds. Findings: Bruising and erythema present. Data Reviewed and Summarized Labs/Imaging/Testing: reviewed EMR, see A&P for pertinent diagnostic results related to office visit CHRISTIANO Gee CNP documented in this [facility]05-12-2024 Telephone encounter Note* Telephone Encounter - CHRISTIANO Palacios CNP - 06/25/2023 2:05 PM EDT Reports he has a red area on EVH leg that has expanded. He was seen by his PCP who was concerned for infection. Initially started on Doxycycline. The redness continued to expand/move. He was seen again by PCP, given 1g ceftriaxone injection and started on Bactrim on Monday. He denies fever/chills. The redness is about the same from Monday. Denies expanding swelling. Recommended he continue Bactrim and elevate leg when resting. Continue to monitor temperature. He has appt tomorrow with our office. Will be assessed at that time. CHRISTIANO Palacios CNP 06/25/23 [facility] [employer] Phone: 1(293) 822-353805-12-2024 Miscellaneous Notes* Telephone Encounter - CHRISTIANO Palacios CNP - 06/25/2023 2:05 PM EDT Reports he has a red area on EVH leg that has expanded. He was seen by his PCP who was concerned for infection. Initially started on Doxycycline. The redness continued to expand/move. He was seen again by PCP, given 1g ceftriaxone injection and started on Bactrim on Monday. He denies fever/chills. The redness is about the same from Monday. Denies expanding swelling. Recommended he continue Bactrim and elevate leg when resting. Continue to monitor temperature. He has appt tomorrow with our office. Will be assessed at that time. CHRISTIANO Palacios CNP 06/25/23 * Telephone Encounter - Daniela Byrne - 06/23/2023 9:14 PM EDT Name of Caller: Chau Rush Call Back Number: [phone] What Procedure/Surgery did you have done: CORONARY ARTERY BYPASS GRAFT, LEFT LOWER LOBE WEDGE RESECTION [86708 (CPT )] Who was your surgeon: Dr Peterson What date was your surgery?: What is the reason for your call today (symptom): Patient concerned with left lower leg redness at site of incision. Patients PCP believes it may be infected. Please call patient at [phone] What provider is being paged: Dr BonillaParisi Time page was sent: 9:21 pm Page Content: Name: Chau Barron : 1940 Call Back Number: [phone] Reason for page (symptom): Patient concerned with left lower leg redness at site of incision. Patients PCP believes it may be infected. Please call patient at [phone] Name of Surgeon: Dr Peterson Type of Surgery: CORONARY ARTERY BYPASS GRAFT, LEFT LOWER LOBE WEDGE RESECTION [01335 (CPT )] Date of Surgery: 06.06.2023 documented in this [facility]05-10-2024 NoteName of Caller: Chau Rush Call Back Number: [phone] What Procedure/Surgery did you have done: CORONARY ARTERY BYPASS GRAFT, LEFT LOWER LOBE WEDGE RESECTION [35176 (CPT?)] Who was your surgeon: Dr Peterson What date was your surgery?: What is the reason for your call today (symptom): Patient concerned with left lower leg redness at site of incision. Patients PCP believes it may be infected. Please call patient at [phone] What provider is being paged: Dr Parisi Time page was sent: 9:21 pm Page Content: Name: hCau Barron : 1940 Call Back Number: [phone] Reason for page (symptom): Patient concerned with left lower leg redness at site of incision. Patients PCP believes it may be infected. Please call patient at [phone] Name of Surgeon: Dr Peterson Type of Surgery: CORONARY ARTERY BYPASS GRAFT, LEFT LOWER LOBE WEDGE RESECTION [27268 (CPT?)] Date of Surgery: 06.06.2023[facility]05-10-2024 Telephone encounter Note* Telephone Encounter - Danilea Byrne - 06/23/2023 9:14 PM EDT Name of Caller: Chau Rush Call Back Number: [phone] What Procedure/Surgery did you have done: CORONARY ARTERY BYPASS GRAFT, LEFT LOWER LOBE WEDGE RESECTION [53967 (CPT )] Who was your surgeon: Dr Peterson What date was your surgery?: What is the reason for your call today (symptom): Patient concerned with left lower leg redness at site of incision. Patients PCP believes it may be infected. Please call patient at [phone] What provider is being paged: Dr Parisi Time page was sent: 9:21 pm Page Content: Name: Chau Barron : 1940 Call Back Number: [phone] Reason for page (symptom): Patient concerned with left lower leg redness at site of incision. Patients PCP believes it may be infected. Please call patient at [phone] Name of Surgeon: Dr Peterson Type of Surgery: CORONARY ARTERY BYPASS GRAFT, LEFT LOWER LOBE WEDGE RESECTION [85678 (CPT )] [facility]: [facility] History of Present illness Narrative* Aixa Al RN - 06/19/2023 1:27 PM EDT 06/19/23 1308 BPCI Late Drop? Program late drop? No BPCI Outreach Assessment Selection Which outreach assessment are you completing? 7 Day BPCI - 7 Day Outreach Did patient answer phone call? Yes Have you experienced any issues, decline or backsliding in your condition? No Do you have any question on managing your condition? No Any issues with scheduling your follow up appointment with your provider? No Do you have any issues with Transportation to your appointments? Yes Do you feel there are any barriers to you progressing toward your post d/c goals? No Are you missing any Post discharge Services? No Any issues with the services provided? No Are there any additional items you need or questions in your condition that you need clarified? No Educational and general instructions provided: Medication Adherence;When to call MD;When to return to the ED;Daily weights;Low sodium diet Have you had any thoughts of returning to the hospital/SNF? No Reminded patient about 30 day window to re-admit to SNF/C if needed. N/A Chart reviewed. Contacted patient for BPCI 7 day outreach. Patient states he is steadily better. Hedenies chest pain or S.O.B.. Patient denies redness, drainage or swelling at sternal incision. Patient Patient describes slightly pink discoloration on left lower leg, midway between his ankle and knee, and spouse states it is unrelated to the vein harvesting sites. Patient states he is weighing himself daily and reports 2 lb weight fluctuation. Patient is aware to call MD with weight gain of 3 lbs/day or 5 lbs/week. Patient states he is taking his medications as prescribed. Patient reports [facility] visited on Monday. Patient states he is sleeping better and his appetite is good. Patient is aware of his appointments and plans to attend. documented in this [facility]04-30-2024 History of Present illness Narrative* Chiki Hoffmann RN - 06/13/2023 4:41 PM EDT Pt discharged to home at this time. Pt taken out of unit with RN in WC. Pt VSS at time of DC. Pt leaves with family who are present during DC instructions. Pt pacer wires cut prior to DC from unit. Pt verbalized understanding of DC information. * Martina Ortez - 06/13/2023 10:02 AM EDT Images from the original note were not included. PHYSICAL THERAPY [facility] Treatment Note Name/MRN: Cahu Barron ([id number]) Date of : 1940 Age: 82 y.o. Room/Bed: T1-116/T1-116 A Discharge Recommendation: Home with assist PRN, Home with Home health PT Equipment Needed: No Prior Level of Function ADL Assistance: Independent Ambulation Assistance: Independent Transfer Assistance: Independent Assessment Patient completed all transfers, SBA, with little cueing for move in the tube precautions, especially from sit to stand. Patient amb 200', CGA, with one standing rest break, Sp02 95%, cued for deep breathing. Patient performed stair negotiation, CGA, nonreciprocal stepping. Patient performed P&C exercises, and I.S, with splinted cough- weak, unproductive. Patient performed unproductive cough throughout session. Need to assess bed mobility before discharged. Recommend home with assist and Home Health at discharge. Subjective Patient found in chair, agreeable and pleasant for therapy. Patient able to self direct through P&C exercises. Patient reports walking to get coffee twice this morning. Encouraged patient to increase time for walking program. Patient recalls precautions. Patient left in chair. Pain: Pt denies any current pain. Medical Precautions: No active isolations Proper PPE donned/doffed in accordance with facility standards. Fall Risk: Oswald Fall Risk Score: 35 (Medium Risk) Precautions/Restrictions: Sternal Precautions: No Pushing, No Pulling, No Lifting Greater Than 10 lbs Lines/Tubes/Drains: Tele Overall Cognitive Status: WNL Overall Orientation Status: Oriented x4 Family/Caregiver Present: none Objective Ambulation Ambulation 1 Assistive device(s) used: none Assist level: Contact Guard Distance (ft): 200' x 1, one standing rest break Quality of gait: uneven step length, wide MARCELO, slow marcie Slight waddling gait due to R knee limited ROM. Patient had on LOB to R, able to self correct. Educated patient on increasing time for walking program. Transfers/Mobility Sit to stand: SBA Stand to sit: SBA Required minimal cueing for move in the tube. Device(s) used: none Exercises Exercises Upper Extremity: P&C ex's #1-9 x 10 reps, good ROM, increased time to complete exercises Comments: I.S x 10 reps- 1500mL, cued for splinted cough- weak, unproductive Stairs Stairs 1 Assistive device(s) used: none Assist level: Contact Guard # of steps: 4 Rails: left Additional factors: non-reciprocal going up, non-reciprocal going down, increased time to complete Balance: Good immediate standing balance, Plan Continue acute PT per plan of care. Safety/Education Safety Safety Devices in place: call light within reach, left in chair, and no alarms engaged upon entry Restraints: No Education Gait training, transfer training, Stair Negotiation, Energy Conservation, P&C exercises Outcome Measures AM-PAC AM-PAC Inpatient Mobility Raw Score : 20 AM-PAC Inpatient Mobility Raw Score (No Stairs) : 17 JH-HLM JH-HLM Score: Walked 25 ft or more (i.e. walked outside of room) Goals Patient Stated Goal: To have less pain, go home Encounter Problems Encounter Problems (Active) Cardiac Patient will perform bed mobility with CGA in order to improve independence and prepare for out of bed mobility. (Not Addressed) Start: 06/07/23 Expected End: 06/21/23 Patient will complete sit to stand transfer with CGA to [facility] in order to improve safety and preparefor out of bed mobility. (Completed) Start: 06/07/23 Expected End: 06/21/23 Resolved: 06/13/23 Patient will ambulate 600 feet or ambulate 5 minutes with supervision with RPE of 14 or lower. (Progressing) Start: 06/07/23 Expected End: 06/21/23 Patient will ascend and descend 4 # stairs with supervision rail for balance only. (Adequate for Discharge) Start: 06/07/23 Expected End: 06/21/23 Patient will be independent with P&C exercises. (Adequate for Discharge) Start: 06/07/23 Expected End: 06/21/23 Patient will be independent with managing secretions and home walking program. (Adequate for Discharge) Start: 06/07/23 Expected End: 06/21/23 Pain - Adult Therapy Time Individual Co-treatment Time In 09 Time Out 0943 Minutes 23 Timed Code Treatment Minutes: 23 Minutes (gait, TP) Martina Ortez, SPTA Renay Strong, HOLLIS * Erica Kay, CHRISTIANO - [employer] - 06/12/2023 9:32 AM EDT Images from the original note were not included. Cardiothoracic Surgery/[facility] Progress Note PATIENT NAME: Chau Barron DATE: 06/12/23 HPI: 82 y.o. with pmHx of HLD, HTN, T2DM who was transffered from outside hospital for CABG consideration. Per paper chart brought with the patient, he developed midsternal chest pressure, coughing, burping, and sweating while riding his lawnmower. By the time the patient arrived to the ED - chest pressure had slightly improved. Cardiac enzymes were elevated and he was admitted as NSTEMI and Cardiology was consulted. Cardiac cath was then preformed which showed: Distal LM 60-70% stenosis left main bifurcating into LAD, ramus and left circumflex. LAD with ostial and proximal ~70%. Distal LAD nylmus47%, ostial LCx 70%, RCA large dominant , calcified with proximal RCA thrombus: JIMMY-3 flow in the RCA. He was transferred to [facility] for CABG consideration. Full workup completed at [facility], CT chest revealed lung nodule. Surgery planned for 06/06/23. Surgery/Procedure: 06/06/23: Dr. Peterson- CABGx 4 (HERNANDEZ-LAD, SVG-PDA, SVG- RAMUS, SVG-DIAG1), LLE EVH, LLL wedge resection, pericardial cyst resection Interval History: 06/12/23, POD# 06: Afebrile, NSR on tele, BP stable, on RA. Sitting up in chair this AM, pain tolerable, feels he is progressing with therapy, walked on small staircase in unit over weekend. Hoping to be able to go home, nervous about helping him. Review of Systems Constitutional: Negative for appetite change, chills, diaphoresis and fever. Respiratory: Negative for cough, shortness of breath and wheezing. Cardiovascular: Negative for palpitations and leg swelling. Gastrointestinal: Negative for abdominal distention, abdominal pain, constipation, diarrhea, nauseaand vomiting. Neurological: Negative for dizziness and light-headedness. Objective: Last BM Date: 06/12/23 Vitals: BP: 128/84, MAP (mmHg): 97, BP Method: Automatic Heart Rate: 77 Resp: 20 Temp: 36.6 C (97.9 F), Temp Source: Temporal BMI (Calculated): 34.44 BMP: Recent Labs 06/10/23 0433 06/11/23 0110 06/12/23 0010 NA 134* 136 135 K 4.2 3.7 3.9 CL 102 102 101 CO2 25 25 21* BUN 42* 45* 42* CREATININE 1.25 1.24 1.11 CALCIUM 8.5 8.4 8.8 MG 2.4* 2.3 2.2 CBC: Recent Labs 06/10/23 0433 06/11/23 0110 06/12/23 0010 WBC 13.1* 11.6* 11.4* HGB 9.6* 9.3* 9.2* HCT 28.6* 27.7* 27.9* PLT 187 208 241 MCV 92.6 93.0 93.3 RDW 14.1 13.9 13.8 INR: No results for input(s): INR in the last 72 hours. Physical Exam Vitals reviewed. Constitutional: General: He is not in acute distress. Appearance: He is not ill-appearing or diaphoretic. Cardiovascular: Rate and Rhythm: Normal rate and regular rhythm. Pulses: Normal pulses. Heart sounds: No murmur heard. Pulmonary: Effort: Pulmonary effort is normal. Breath sounds: No wheezing, rhonchi or rales. Abdominal: General: There is no distension. Palpations: Abdomen is soft. Tenderness: There is no abdominal tenderness. Comments: Chest tube dressing dry and intact. Musculoskeletal: General: No swelling. Skin: General: Skin is warm and dry. Capillary Refill: Capillary refill takes less than 2 seconds. Findings: Bruising present. Comments: MSI well approximated. No redness, warmth or drainage noted. Neurological: General: No focal deficit present. Mental Status: He is alert. Assessment: MVCAD/NSTEMI s/p CABG LLL nodule (10mm) HTN T2DM HLD Post operative Pulm Management: Normal Post-operative Course Post-operative Atrial Fibrillation: []Yes [x] No Acute blood loss anemia/consumptive thrombocytopenia Plan: Continue aspirin, statin and BB. -Will titrate up on BB if BP allows. Lasix BID for today, will switch to daily tomorrow. Encourage increased activity, progressive mobility. Work on steps with nursing and PT. DC planning today. Encourage PO intake. Bowel regimen. +BM. Endocrine signed off- resume home regimen at discharge if GFR > 60, consider SGLT2 as OP. PT/OT: Home with Home Health PT, Home with assist PRN (06/10/23) Pulmonary hygiene: IS and Acapella GI prophy: PO protonix DVT prophy:TEDs, SCDs, and Heparin SubQ TCC/Discharge Planning: Plan for home this week, hope in the next couple days. Central Line: []Yes [x] No Arterial Line: []Yes [x] No Mccord: []Yes [x] No Restraints: []Yes [x] No Patient discussed and plan of day developed from multidisciplinary rounds between Cardiothoracic Surgery (Cardiothoracic Surgeon, BELKIS) and Critical Care Attending Cardiac Core Medications: ASA, Statin, and BB EF: 55% (06/06/23) Blood Conservation: None noted in post-operative period Supervisor Properties: [facility] * Lisa Dillard PTA - 06/11/2023 1:54 PM EDT Images from the original note were not included. PHYSICAL THERAPY [facility] Treatment Note Name/MRN: Chau Barron ([id number]) Date of : 1940 Age: 82 y.o. Room/Bed: T1-116/T1-116 A Discharge Recommendation: Home with Home health PT, Home with assist PRN Equipment Needed: (TBD) Prior Level of Function ADL Assistance: Independent Ambulation Assistance: Independent Transfer Assistance: Independent Assessment Transfers with Supervision. Recall of sternal precautions. Gait training with assistance to manage oxygen and directional cues as well as verbal cues for breathing through nasal canula. Patient became fatigued frequently during ambulation and required rest breaks either standing with upper extremity support or in a chair. Stair training with single handrail and CGA with assistance to manage O2. Recommend home with home health PT and assist PRN at discharge. Subjective Patient seated in chair and agreeable to therapy. Pain: RN managing pain. Medical Precautions: No active isolations Proper PPE donned/doffed in accordance with facility standards. Fall Risk: Oswald Fall Risk Score: 45 (High Risk) Precautions/Restrictions: Sternal Precautions: No Pushing, No Pulling, No Lifting Greater Than 10 lbs Overall Cognitive Status: WFL Overall Orientation Status: Oriented x4 Family/Caregiver Present: none Objective Ambulation Ambulation 1 Assistive device(s) used: none, oxygen Assist level: SBA Distance (ft): 60 Quality of gait: No gait deviations, slow marcie Stairs Stairs 1 Assistive device(s) used: none and oxygen Assist level: Contact Guard # of steps: 4 Rails: left Additional factors: increased time to complete Plan Continue acute PT per plan of care. Safety/Education Safety Safety Devices in place: left in chair and nurse notified Restraints: No Education Education Given To: patient Education Provided: Gait Training, Benefits of Increasing Activity, and Breathing Techniques Education Method: Verbal and Demonstration Barriers to Learning: None Education Outcome: Verbalized Understanding and Demonstrated Understanding Outcome Measures AM-PAC AM-PAC Inpatient Mobility Raw Score : 20 AM-PAC Inpatient Mobility Raw Score (No Stairs) : 17 JH-HLM JH-HLM Score: Walked 25 ft or more (i.e. walked outside of room) Goals Patient Stated Goal: To have less pain, go home Encounter Problems Encounter Problems (Active) Cardiac Patient will perform bed mobility with CGA in order to improve independence and prepare for out of bed mobility. (Not Addressed) Start: 06/07/23 Expected End: 06/21/23 Patient will complete sit to stand transfer with CGA to [facility] in order to improve safety and preparefor out of bed mobility. (Progressing) Start: 06/07/23 Expected End: 06/21/23 Patient will ambulate 600 feet or ambulate 5 minutes with supervision with RPE of 14 or lower. (Progressing) Start: 06/07/23 Expected End: 06/21/23 Patient will ascend and descend 4 # stairs with supervision rail for balance only. (Progressing) Start: 06/07/23 Expected End: 06/21/23 Patient will be independent with P&C exercises. (Not Addressed) Start: 06/07/23 Expected End: 06/21/23 Patient will be independent with managing secretions and home walking program. (Progressing) Start: 06/07/23 Expected End: 06/21/23 Pain - Adult Therapy Time Individual Co-treatment Time In 1108 Time Out 1133 Minutes 25 Timed Code Treatment Minutes: 25 Minutes (Gt x2) Lisa iDllard, AUTOMOBILE BODY REPAIR CHIEF * Kiersten Corey, PRODUCT MANAGER [employer] - [employer] - 06/11/2023 7:01 AM EDT Images from the original note were not included. Cardiothoracic Surgery/CCM Progress Note PATIENT NAME: Chau Barron DATE: 06/11/23 HPI: 82 y.o. with pmHx of HLD, HTN, T2DM who was transffered from outside hospital for CABG consideration. Per paper chart brought with the patient, he developed midsternal chest pressure, coughing, burping, and sweating while riding his lawnmower. By the time the patient arrived to the ED - chest pressure had slightly improved. Cardiac enzymes were elevated and he was admitted as NSTEMI and Cardiology was consulted. Cardiac cath was then preformed which showed: Distal LM 60-70% stenosis left main bifurcating into LAD, ramus and left circumflex. LAD with ostial and proximal ~70%. Distal LAD [id number]%, ostial LCx 70%, RCA large dominant , calcified with proximal RCA thrombus: JIMMY-3 flow in the RCA. He was transferred to [facility] for CABG consideration. Full workup completed at [facility], CT chest revealed lung nodule. Surgery planned for 06/06/23. Surgery/Procedure: 06/06/23: Dr. Peterson- CABGx 4 (HERNANDEZ-LAD, SVG-PDA, SVG- RAMUS, SVG-DIAG1), LLE EVH, LLL wedge resection, pericardial cyst resection Interval History: 06/11/23, POD# 5: VSS, Afebrile, on 1L NC. NSR on tele. Continues to get SOB when ambulating. Discussed increasing ambulation and needing a few more days of PT before being ready for discharge. CXR wet, continue with diuresis. Cr- 1.24, stable Review of Systems Constitutional: Positive for activity change and fatigue. Negative for appetite change, diaphoresisand fever. Respiratory: Positive for shortness of breath. Negative for cough and wheezing. Cardiovascular: Positive for leg swelling. Negative for chest pain and palpitations. Gastrointestinal: Negative for abdominal distention, nausea and vomiting. Skin: Negative for color change, pallor and rash. Objective: Last BM Date: 06/09/23 Vitals: BP: 106/78, MAP (mmHg): 87, BP Method: Automatic Heart Rate: 80 Resp: 18 Temp: 36.9 C (98.4 F), Temp Source: Temporal BMI (Calculated): 34.64 CXR: BMP: Recent Labs 06/09/23 0306 06/10/23 0433 06/11/23 0110 NA 130* 134* 136 K 4.2 4.2 3.7 CL 100 102 102 CO2 23 25 25 BUN 34* 42* 45* CREATININE 1.11 1.25 1.24 CALCIUM 8.6 8.5 8.4 MG 2.4* 2.4* 2.3 CBC: Recent Labs 06/09/23 0306 06/10/23 0433 06/11/23 0110 WBC 13.6* 13.1* 11.6* HGB 9.2* 9.6* 9.3* HCT 27.4* 28.6* 27.7* PLT 139* 187 208 MCV 94.2 92.6 93.0 RDW 13.9 14.1 13.9 INR: No results for input(s): INR in the last 72 hours. Physical Exam Cardiovascular: Rate and Rhythm: Normal rate and regular rhythm. Heart sounds: Normal heart sounds. No murmur heard. No friction rub. Pulmonary: Effort: Pulmonary effort is normal. Breath sounds: Decreased breath sounds present. No wheezing. Abdominal: General: Bowel sounds are normal. Palpations: Abdomen is soft. Tenderness: There is no abdominal tenderness. Musculoskeletal: Right lower leg: Edema present. Left lower leg: Edema present. Skin: General: Skin is warm and dry. Capillary Refill: Capillary refill takes less than 2 seconds. Findings: Bruising and ecchymosis present. Comments: Surgical Incisions: well approximate; clean dry with no drainage noted. Surrounding skin no redness, warmth, or signs of infection noted. Neurological: Mental Status: He is alert. Psychiatric: Behavior: Behavior is cooperative. Assessment: MVCAD/NSTEMI s/p CABG LLL nodule (10mm) HTN T2DM HLD Post operative Pulm Management: Normal Post-operative Course Post-operative Atrial Fibrillation: []Yes [x] No Acute blood loss anemia/consumptive thrombocytopenia Plan: ASA/Statin Increase BB- Metoprolol 25mg BID Continue Lasix 40mg BID Encouraged pulmonary toilet and increasing ambulation Endocrine signed off- resume home regimen at discharge if GFR > 60, consider SGLT2 as OP PT/OT: Home with Home health PT, Home with assist PRN Pulmonary hygiene: IS and Acapella GI prophy: PO protonix DVT prophy:TEDs, SCDs, and Heparin SubQ TCC/Discharge Planning Likely d/c in 2-3 days. Needs more PT and diuresis before ready for home Central Line: []Yes [x] No Arterial Line: []Yes [x] No Mccord: []Yes [x] No Restraints: []Yes [x] No Patient discussed and plan of day developed from multidisciplinary rounds between Cardiothoracic Surgery (Cardiothoracic Surgeon, BELKIS) and Critical Care Attending Cardiac Core Medications: ASA, Statin, and No BB due to hypotension EF: 55% (06/06/23) Blood Conservation: None noted in post-operative period Supervisor Properties: [facility] Associated attestation - Ying Mcintosh DO - 06/11/2023 3:09 PM EDT I personally saw and evaluated the patient on 06/11/23. I reviewed and agree with the BELKIS s documentation. I provided a substantive portion of the care of this patient. I personally performed the examand MDM for this encounter as follows Assessment: mvCAD/NSTEMI now s/p CABGx4 (POD 5) Left lower lobe nodule s/p left lower lobe wedge resection Pericardial cyst s/p pericardial cyst resection Post op pulmonary management: expected post op course Acute post op blood loss anemia EDMUNDO Mild to moderate aortic stenosis HTN/HLD DM2 with hyperglycemia (A1c 7.5) Plan: -cont supplemental 02 via NC, wean as able. Encourage pulm toilet, IS/acapella, progressive mobility. Cont lasix 40 mg IV BID. Attempt to get more accurate Is/Os -cont ASA, statin, BB (dose increased today) -PT/OT, current recs are home with assist prn -tele status * Racheal Adam, PT - 06/10/2023 11:41 AM EDT Images from the original note were not included. PHYSICAL THERAPY [facility] Treatment Note Name/MRN: Chau Barron ([id number]) Date of : 1940 Age: 82 y.o. Room/Bed: T1-116/T1-116 A Discharge Recommendation: Home with Home health PT, Home with assist PRN Equipment Needed: (TBD) Prior Level of Function ADL Assistance: Independent Ambulation Assistance: Independent Transfer Assistance: Independent Assessment Pt progressing with ambulation goal this date, pt declining stairs and exercises d/t fatigue. Pt performs transfers to/from chair with CGA. Pt amb with CGA but needs to takes breaks d/t SOB. Subjective Pleasant and agreeable. I'm surprised by how out of breath I am, before surgery I could walk the dogs. Medical Precautions: No active isolations Proper PPE donned/doffed in accordance with facility standards. Fall Risk: Oswald Fall Risk Score: 45 (High Risk) Precautions/Restrictions: Sternal Precautions: No Pushing, No Pulling, No Lifting Greater Than 10 lbs Overall Cognitive Status: WNL Overall Orientation Status: Oriented x4 Family/Caregiver Present: none Objective Ambulation Ambulation 1 Assistive device(s) used: none Assist level: Contact Guard Distance (ft): 15 x 4 Quality of gait: wide MARCELO, slow marcie, postural sway Pt taking breaks about every 15'-20' and resting at counter on nurses station. Transfers/Mobility Sit to stand: Contact Guard Stand to sit: Contact Guard Pt rocks to stand from chair. Pt uses pillow to brace when transferring. Device(s) used: none Plan Continue acute PT per plan of care. Safety/Education Safety Safety Devices in place: call light within reach and left in chair Restraints: N/A Education Education Given To: patient Education Provided: PT Role, PT Goals, Gait Training, Home Exercise Program, Transfer Training, Energy Conservation, Fall Prevention Education, Discharge Recommendations, and Benefits of Increasing Activity Education Method: Verbal and Demonstration Barriers to Learning: None Education Outcome: Verbalized Understanding Outcome Measures AM-PAC AM-PAC Inpatient Mobility Raw Score (No Stairs) : 17 JH-HLM -HLM Score: Walked 25 ft or more (i.e. walked outside of room) Goals Patient Stated Goal: To have less pain, go home Encounter Problems Encounter Problems (Active) Cardiac Patient will perform bed mobility with CGA in order to improve independence and prepare for out of bed mobility. (Not Addressed) Start: 06/07/23 Expected End: 06/21/23 Patient will complete sit to stand transfer with CGA to [facility] in order to improve safety and preparefor out of bed mobility. (Progressing) Start: 06/07/23 Expected End: 06/21/23 Patient will ambulate 600 feet or ambulate 5 minutes with supervision with RPE of 14 or lower. (Progressing) Start: 06/07/23 Expected End: 06/21/23 Patient will ascend and descend 4 # stairs with supervision rail for balance only. (Not Addressed) Start: 06/07/23 Expected End: 06/21/23 Patient will be independent with P&C exercises. (Not Addressed) Start: 06/07/23 Expected End: 06/21/23 Patient will be independent with managing secretions and home walking program. (Not Addressed) Start: 06/07/23 Expected End: 06/21/23 Pain - Adult Therapy Time Individual Co-treatment Time In 1123 Time Out 1139 Minutes 16 Racheal Adam PT * Kiersten Corey, CHRISTIANO - [employer]TAIN - 06/10/2023 11:04 AM EDT Images from the original note were not included. Cardiothoracic Surgery/CCM Progress Note PATIENT NAME: Chau Barron DATE: 06/10/23 HPI: 82 y.o. with pmHx of HLD, HTN, T2DM who was transffered from outside hospital for CABG consideration. Per paper chart brought with the patient, he developed midsternal chest pressure, coughing, burping, and sweating while riding his lawnmower. By the time the patient arrived to the ED - chest pressure had slightly improved. Cardiac enzymes were elevated and he was admitted as NSTEMI and Cardiology was consulted. Cardiac cath was then preformed which showed: Distal LM 60-70% stenosis left main bifurcating into LAD, ramus and left circumflex. LAD with ostial and proximal ~70%. Distal LAD khtilx18%, ostial LCx 70%, RCA large dominant , calcified with proximal RCA thrombus: JIMMY-3 flow in the RCA. He was transferred to [facility] for CABG consideration. Full workup completed at [facility], CT chest revealed lung nodule. Surgery planned for 06/06/23. Surgery/Procedure: 06/06/23: Dr. Peterson- CABGx 4 (HERNANDEZ-LAD, SVG-PDA, SVG- RAMUS, SVG-DIAG1), LLE EVH, LLL wedge resection, pericardial cyst resection Interval History: 06/10/23, POD# 4: VSS, afebrile, on RA. NSR on tele. No acute events overnight. Sitting in chair, no acute complaints this morning. Cr- 1.25 (1.11, 1.02) Review of Systems Constitutional: Positive for activity change and fatigue. Negative for appetite change, diaphoresisand fever. Respiratory: Negative for cough, shortness of breath and wheezing. Cardiovascular: Positive for leg swelling. Negative for chest pain and palpitations. Gastrointestinal: Negative for abdominal distention, nausea and vomiting. Skin: Negative for color change, pallor and rash. Objective: UO cc/24hrs: 2,250 mL + 2x unmeasured Last BM Date: 06/09/23 Vitals: BP: 102/64, MAP (mmHg): 76, BP Method: Automatic Heart Rate: 79 Resp: 17 Temp: 36.7 C (98.1 F), Temp Source: Temporal BMI (Calculated): 34.2 CXR: BMP: Recent Labs 06/08/23 0533 06/09/23 0306 06/10/23 0433 NA 131* 130* 134* K 4.4 4.2 4.2 CL 102 100 102 CO2 20* 23 25 BUN 22* 34* 42* CREATININE 1.02 1.11 1.25 CALCIUM 8.7 8.6 8.5 MG 2.3 2.4* 2.4* CBC: Recent Labs 06/08/23 0533 06/09/23 0306 06/10/23 0433 WBC 20.8* 13.6* 13.1* HGB 9.8* 9.2* 9.6* HCT 29.4* 27.4* 28.6* PLT 151 139* 187 MCV 94.5 94.2 92.6 RDW 14.3 13.9 14.1 INR: No results for input(s): INR in the last 72 hours. Physical Exam Cardiovascular: Rate and Rhythm: Normal rate and regular rhythm. Heart sounds: Normal heart sounds. No murmur heard. No friction rub. Pulmonary: Effort: Pulmonary effort is normal. Breath sounds: Decreased breath sounds present. No wheezing. Abdominal: General: Bowel sounds are normal. Palpations: Abdomen is soft. Tenderness: There is no abdominal tenderness. Musculoskeletal: Right lower leg: Edema present. Left lower leg: Edema present. Skin: General: Skin is warm and dry. Capillary Refill: Capillary refill takes less than 2 seconds. Findings: Bruising and ecchymosis present. Comments: Surgical Incisions: well approximate; clean dry with no drainage noted. Surrounding skin no redness, warmth, or signs of infection noted. Neurological: Mental Status: He is alert. Psychiatric: Behavior: Behavior is cooperative. Assessment: MVCAD/NSTEMI s/p CABG LLL nodule (10mm) HTN T2DM HLD Post operative Pulm Management: Normal Post-operative Course Post-operative Atrial Fibrillation: []Yes [x] No Acute blood loss anemia/consumptive thrombocytopenia Plan: ASA/Statin Start low dose BB- Metoprolol 12.5mg BID Continue Lasix 40mg BID Remove central line Encouraged pulmonary toilet and increasing ambulation Endocrine signed off- resume home regimen at discharge if GFR > 60, consider SGLT2 as OP PT/OT: Home with Home health PT, Home with assist PRN Pulmonary hygiene: IS and Acapella GI prophy: PO protonix DVT prophy:TEDs, SCDs, and Heparin SubQ TCC/Discharge Planning TBD Central Line: [x]Yes [] No Arterial Line: []Yes [x] No Mccord: [x]Yes [] No Restraints: []Yes [x] No Patient discussed and plan of day developed from multidisciplinary rounds between Cardiothoracic Surgery (Cardiothoracic Surgeon, BELKIS) and Critical Care Attending Cardiac Core Medications: ASA, Statin, and No BB due to hypotension EF: 55% (06/06/23) Blood Conservation: None noted in post-operative period Supervisor Properties: [facility] Associated attestation - Ying Mcintosh DO - 06/10/2023 12:13 PM EDT I personally saw and evaluated the patient on 06/10/23. I reviewed and agree with the BELKIS s documentation. I provided a substantive portion of the care of this patient. I personally performed the examand MDM for this encounter as follows Assessment: mvCAD/NSTEMI now s/p CABGx4 (POD 4) Left lower lobe nodule s/p left lower lobe wedge resection Pericardial cyst s/p pericardial cyst resection Post op pulmonary management: expected post op course Acute post op blood loss anemia EDMUNDO Mild to moderate aortic stenosis HTN/HLD DM2 with hyperglycemia (A1c 7.5) Plan: -cont supplemental 02 via NC, wean as able. Encourage pulm toilet, IS/acapella, progressive mobility. Cont lasix 40 mg IV BID -cont ASA, statin. Start BB today -Cr trending up, 1.25 today. Monitor closely -PT/OT, current recs are home with assist prn -tele status * CHRISTIANO Palacios CNP - 06/09/2023 4:28 PM EDT Chest tubes assessed: no air leak, subcutaneous air noted. Chest tubes removed without difficulty and dressing applied. Patient tolerated well. Patient and nurse educated on possible complications toobserve for. Will continue to monitor. CHRISTIANO Palacios CNP 06/09/23 * Sheree Elliott, AUTOMOBILE BODY REPAIR CHIEF - 06/09/2023 10:32 AM EDT Images from the original note were not included. PHYSICAL THERAPY [facility] Treatment Note Name/MRN: Chau Barron ([id number]) Date of : 1940 Age: 82 y.o. Room/Bed: T1-116/T1-116 A Discharge Recommendation: Home with Home health PT, Home with assist PRN Equipment Needed: (TBD) Prior Level of Function ADL Assistance: Independent Ambulation Assistance: Independent Transfer Assistance: Independent Assessment Pt making progress with gait distance. O2 sats remained stable on 4L throughout session. Good compliance with sternal precautions and move within the tube Pt states he will be here until next week,likely to progress to home with assist and home PT. Notified PT. Subjective Pt up in chair. Agreeable to PT. Pain: 0-10 pain scale: 2/10 Location: sternum Medical Precautions: No active isolations Proper PPE donned/doffed in accordance with facility standards. Fall Risk: Oswald Fall Risk Score: 45 (High Risk) Precautions/Restrictions: Sternal Precautions: No Pushing, No Pulling, No Lifting Greater Than 10 lbs, educated on move in the tube Current lines and tubes: 1 chest tube, tele, mccord, external pacer, O2 at 4L Overall Cognitive Status: WNL Overall Orientation Status: Oriented x4 Family/Caregiver Present: none Objective Ambulation Ambulation 1 Assistive device(s) used: Nezzie Assist level: Contact Guard Distance (ft): 50ft x 2 Quality of gait: slow marcie Transfers/Mobility Sit to stand: Min Assist Stand to sit: Min Assist Device(s) used: Tracey Exercises Exercises Upper Extremity: P&C ex's #1-9 x 10 reps, good ROM Comments: I.S x 10 reps- ~750-1000mL Plan Continue acute PT per plan of care. Safety/Education Safety Safety Devices in place: All fall risk precautions in place, call light within reach, left in chair, and nurse notified Restraints: No Education Sternal precautions, Gait training, Transfers, P&C ex's Outcome Measures AM-PAC AM-PAC Inpatient Mobility Raw Score (No Stairs) : 13 JH-HLM JH-HLM Score: Walked 25 ft or more (i.e. walked outside of room) Goals Patient Stated Goal: To have less pain, go home Encounter Problems Encounter Problems (Active) Cardiac Patient will perform bed mobility with CGA in order to improve independence and prepare for out of bed mobility. (Not Addressed) Start: 06/07/23 Expected End: 06/21/23 Patient will complete sit to stand transfer with CGA to none in order to improve safety and preparefor out of bed mobility. (Progressing) Start: 06/07/23 Expected End: 06/21/23 Patient will ambulate 600 feet or ambulate 5 minutes with supervision with RPE of 14 or lower. (Progressing) Start: 06/07/23 Expected End: 06/21/23 Patient will ascend and descend 4 # stairs with supervision rail for balance only. (Not Addressed) Start: 06/07/23 Expected End: 06/21/23 Patient will be independent with P&C exercises. (Progressing) Start: 06/07/23 Expected End: 06/21/23 Patient will be independent with managing secretions and home walking program. (Progressing) Start: 06/07/23 Expected End: 06/21/23 Pain - Adult Therapy Time Individual Co-treatment Time In 955 Time Out 1027 Minutes 31 Timed Code Treatment Minutes: 31 Minutes (gait, TP) Sheree Elliott PTA * Katy Roche MD - 06/09/2023 9:19 AM EDT Department of Internal Medicine Division of Endocrinology, Diabetes, & Metabolism Endocrinology Note Patient Name: Chau Barron : 1940 AGE: 82 y.o. Room/Bed: T1-116/T1-116 A Admission Date: 06/02/2023 Visit Date: 06/09/2023 Reason for Endocrine Consult: Postop CABG Provider/Team Requesting Consult: CTS PCP: Kishan Ford MD Outpt Mechanical Service Specialist: No ASSESSMENT: Type 2 diabetes with hyperglycemia without long-term insulin use Multivessel CAD s/p CABG Hypertension Hyperlipidemia PLAN: Current sugars are well controlled with no insulin needs Continue Humalog low dose sliding scale with meals at this time ICU goal <180 GMF goal <150 POCT BG ACHS Hypoglycemia management per protocol Carb controlled diet Endocrine team will sign off at this time. Please reach out to us in case of questions ANTICIPATED ENDOCRINE HOME GOING RECOMMENDATIONS: Home Going Endocrine Rx Recommendations-- Resume home regimen of metformin XR 500 mg twice daily with meals as long as GFR is >60 Can consider SGLT2 elevators as outpatient Outpt Follow Up-- PCP SUBJECTIVE/HPI: CHIEF COMPLAINT: S/P CABG Type of DM: 2 Onset of DM: 2017 Home DM Medication Regimen: Metformin XR 500 mg twice daily DM control (last A1c/glucose data): 7.5% on current admission Patient was seen at bedside Feeling better Appetite is good He has been tolerating diet without any GI issues No other complaints offered at this time Glucose Date/Time Value Ref Range Status 06/09/2023 09:12 AM 141 (H) 70 - 100 mg/dL Final 06/08/2023 05:04 PM 148 (H) 70 - 100 mg/dL Final 06/08/2023 12:49 PM 118 (H) 70 - 100 mg/dL Final 06/08/2023 09:30 AM 133 (H) 70 - 100 mg/dL Final 06/07/2023 08:51 PM 171 (H) 70 - 100 mg/dL Final 06/07/2023 06:37 PM 145 (H) 70 - 100 mg/dL Final Review of Systems ROS negative except for those mentioned in HPI. OBJECTIVE: Vitals: 06/09/23 0500 06/09/23 0515 06/09/23 0600 06/09/23 0700 BP: 110/90 99/61 97/61 BP Location: Patient Position: Pulse: 81 75 76 74 Resp: 24 18 18 19 Temp: TempSrc: SpO2: 95% 96% 97% 96% Weight: Height: Physical Exam Vitals and nursing note reviewed. Constitutional: Appearance: Normal appearance. HENT: Head: Normocephalic and atraumatic. Cardiovascular: Rate and Rhythm: Normal rate and regular rhythm. Pulmonary: Effort: Pulmonary effort is normal. Musculoskeletal: General: Swelling present. Skin: General: Skin is warm and dry. Neurological: General: No focal deficit present. Mental Status: He is alert and oriented to person, place, and time. Psychiatric: Mood and Affect: Mood normal. Behavior: Behavior normal. 24 hour intake/output: Intake/Output Summary (Last 24 hours) at 06/09/2023918 Last data filed at 06/09/2023 0500 Gross per 24 hour Intake 1183 ml Output 3090 ml Net -1907 ml Diet: Adult diet Regular; 5 carb choices (75 gm/meal) Medications (as per EMR): HomeMeds: Current Outpatient Medications Medication Instructions ascorbic acid (VITAMIN C) 1,000 mg, Oral, Daily aspirin 81 mg, Oral, Daily atorvastatin (LIPITOR) 40 mg, Oral, Daily Cholecalciferol 25 mcg, Oral, Daily co-enzyme Q-10 30 mg, Oral, Daily metFORMIN (OSM) (FORTAMET) 500 mg, Oral, Daily with evening meal, Do not crush, chew, or split. niacinamide 500 mg, Oral, 2 times daily with meals valsartan (DIOVAN) 80 mg, Oral, Daily Scheduled Meds:acetaminophen, 1,000 mg, Oral, q8h aspirin, 81 mg, Oral, Daily atorvastatin, 80 mg, Oral, Daily chlorhexidine, 15 mL, Mouth/Throat, BID furosemide, 40 mg, IntraVENous, BID heparin, 5,000 Units, SubCUTAneous, BID insulin lispro, 0-6 Units, SubCUTAneous, TID WC Lidocaine, 1 patch, Topical, Daily mupirocin, , Nasal, BID pantoprazole, 40 mg, Oral, qAM AC polyethylene glycol (PEG) 3350, 17 g, Oral, Daily senna-docusate sodium, 2 tablet, Oral, Nightly sodium chloride 0.9%, 10 mL, IntraVENous, 2 times per day sodium chloride 0.9%, 5-40 mL, IntraCATHeter, q8h Continuous Infusions:norepinephrine, 0.01-0.2 mcg/kg/min, Last Rate: Stopped (06/08/23918) PRN Meds:PRN medications: calcium gluconate, dextrose, dextrose, glucagon (rDNA), glucose, ipratropium-albuterol, magnesium hydroxide, magnesium sulfate OR magnesium sulfate, naloxone, norepinephrine, ondansetron ODT OR ondansetron, oxyCODONE OR oxyCODONE, potassium chloride OR potassium chloride OR potassium chloride, potassium chloride CR, sodium chloride 0.9% Diagnostic Workup: I reviewed pertinent Laboratory results, Radiographic results, and Other Clinical Notes at the timeof today's encounter. Labs: No components found for: LABA1C No components found for: EAG Lab Results Component Value Date NA 130 (L) 06/09/2023 K 4.2 06/09/2023 CL 100 06/09/2023 CO2 23 06/09/2023 BUN 34 (H) 06/09/2023 CREATININE 1.11 06/09/2023 GLUCOSE 113 (H) 06/09/2023 CALCIUM 8.6 06/09/2023 No results found for: CHLPL, CHOL No results found for: TRIG No results found for: HDL No results found for: LDLCALC No results found for: VLDL No results found for: CHOLHDLRATIO No results found for: BGGF89QEL No results found for: TSH, O2YUHUQ, V1UPLUN, THYROIDAB Radiology reportsas per the Radiologist Radiology: CT chest wo IV contrast Addendum Date: 06/03/2023 [facility] 1940 [id number] Date/Time: 06/03/2023 18:22 Procedure: CT CHEST WO IV CONTRAST Ordering Provider: FLOREZ ANDREW Reason For Exam: assess aorta prior to open heart surgery --------ADDENDUM #1 -------- CRITICALTEST RESULT COMMUNICATION: Notification of these findings was made to Dr. Reta Peterson via [employer] Secure Chat on 06/03/2023 10:17 PM EDT. Report Dictated on Electronically Signed By: Jerson Blackburn MD Electronically Signed Date/Time: 06/03/2023 10:17 PM EDT --------ORIGINAL REPORT -------- CT CHEST WITHOUT CONTRAST: CLINICAL INDICATION: Aortic evaluation prior to cardiac surgery. TECHNIQUE: Transaxial sequence through the chest from apices through the bases at 1 mm reconstruction interval. Coronal and sagittal reconstruction images reviewed. Dose reduction was employedwith automated exposure control. COMPARISON: None. FINDINGS: Lungs: No consolidation or atelectasis. 10 mm left lower lobe nodule (series 4 image 187). Pleural fluid: None. Heart/Great vessels: The heart is mildly enlarged. There are moderate thoracic aortic calcifications. The thoracic aorta is normal in caliber. There are severe coronary artery calcifications. Mediastinum/Candice: Unremarkable on this noncontrast study. Chest wall and lower neck: No abnormality. Upper abdomen: No abnormality throughout the visualized portions of liver. Visualized portions of the spleen are normal. The adrenalsare unremarkable. Osseous structures: Degenerative change of the thoracic spine is noted. IMPRESSION: 1. 10 mm left lower lobe nodule. Recommend biopsy, PET CT or three-month follow-up CT as outlinedbelow*. 2. Mild cardiomegaly. 3. Atherosclerotic disease with coronary artery calcifications. *2017- UPDATED [employer] GUIDELINES FOR MANAGEMENT OF SMALL PULMONARY NODULES DETECTED ON CT Note: Recommendations do not apply for lung cancer screening, patients with immunosuppression or with k nown cancer. Dimensions are average of long and short axis rounded to the millimeter SOLITARY NODULE: LOW RISK PATIENT <6mm - No follow up 6-8mm - 6-12 months, then consider 18-24 months >8mm -PET/CT, Bx or followup in 3 months SOLITARY NODULE: HIGH RISK PATIENT <6mm - Optional 6-12 months (suspicious morphology or upper lobe) 6-8mm - 6-12 months, then 18-24 months >8mm - PET/CT, Bx or followup in 3 months Report Dictated on Electronically Signed By: Jerson Blackburn MD Electronically Signed Date/Time: 06/03/2023 10:07 PM EDT Result Date: 06/03/2023 [facility] : 1940 [id number] Date/Time: 06/03/2023 18:22 Procedure: CT CHEST WO IV CONTRAST Ordering Provider: FLOREZ ANDREW Reason For Exam: assess aorta prior to open heart surgery CT CHEST WITHOUT CONTRAST: CLINICAL INDICATION: Aortic evaluation prior to cardiac surgery. TECHNIQUE: Transaxial sequence through the chest from apices through the bases at 1 mm reconstruction interval. Coronal and sagittal reconstruction images reviewed. Dose reduction was employed with automated exposure control. COMPARISON: None. FINDINGS: Lungs: No consolidation or atelectasis. 10 mm left lower lobe nodule (series 4 image 187). Pleural fluid: None. Heart/Great vessels: The heart is mildly enlarged. There are moderate thoracic aortic calcifications. The thoracic aorta is normal in caliber. There are severe coronary artery calcifications. Mediastinum/Candice: Unremarkable on this noncontrast study. Chest wall and lower neck: No abnormality. Upper abdomen: No abnormality throughout the visualized portions of liver. Visualized portions of the spleen are normal. The adrenals are unremarkable. Osseous structures: Degenerative change of the thoracic spine is noted. 1. 10 mm left lower lobe nodule. Recommend biopsy, PET CT or three-month follow- up CT as outlined below*. 2. Mild cardiomegaly. 3. Atherosclerotic disease with coronary artery calcifications. *2017 -UPDATED [employer] GUIDELINES FOR MANAGEMENT OF SMALL PULMONARY NODULES DETECTED ON CT Note: Recommendations do not apply for lung cancer screening, patients with immunosuppression or with kno wn cancer. Dimensions are average of long and short axis rounded to the millimeter SOLITARY NODULE:LOW RISK PATIENT <6mm - No follow up 6-8mm - 6-12 months, then consider 18-24 months >8mm - PET/CT, Bx or followup in 3 months SOLITARY NODULE: HIGH RISK PATIENT <6mm - Optional 6-12 months (suspicious morphology or upper lobe) 6-8mm - 6-12 months, then 18-24 months >8mm - PET/CT, Bx orfollowup in 3 months Report Dictated on Electronically Signed By: Jerson Blackburn MD Electronically Signed Date/Time: 06/03/2023 10:07 PM EDT ECG 12 lead DAILY Sinus rhythm Nonspecific IVCD with LAD Borderline T abnormalities, inferior leads Electronically Signed On 06-03-2023 14:52:31 EDT by Sae Raza ECG 12 lead DAILY Sinus bradycardia Nonspecific IVCD with LAD Probable inferior infarct, age indeterminate Electronically Signed On 06-03-2023 14:25:43 EDT by Sae Raza XR chest 1 view Result Date: 06/03/2023 Patient Name: CHAU BARRON : 1940 Date/Time: 06/03/2023 05:41 Procedure: XR CHEST 1 VIEW Ordering Provider: KAY KYLE Reason For Exam: DYSPNEA CHEST X-RAY AP CLINICAL INDICATION: Dyspnea AP radiograph of the chest was obtained. COMPARISON: 06/02/2023 FINDINGS: The cardiac silhouette is within normal limits. The exam was obtained at low inspiratory volumes resulting in crowding of the pulmonary interstitial markings. Nofocal consolidation or opacification is seen within the lungs. No pleural effusion or pneumothorax is identified. Degenerative changes of the thoracic spine are noted. No acute cardiopulmonary process. Report Dictated on Electronically Signed By: Jasiel Stone MD Electronically Signed Date/Time: 06/03/2023 9:59 AM EDT POCT glucose meter Result Date: 06/03/2023 [facility] by: [facility] [address] [place] [address] CLIA ID: [id number] XR chest 1 view Result Date: 06/02/2023 [facility] : 1940 [id number] Date/Time: 06/02/2023 17:50 Procedure: XR CHEST 1 VIEW Ordering Provider: KAY KYLE Reason For Exam: DYSPNEA CLINICAL INFORMATION: Shortness of breath. Portable view of the chest at 1745 hours is provided without comparison. FINDINGS: The thoracic aorta is tortuous and ectatic. The cardiac silhouette and mediastinum are otherwise within normal limits. There are no focal infiltrates. There is mild prominence of the central pulmonary vasculature. 1. No focal infiltrates. 2. Prominence of the central pulmonary vasculature consistent with mild congestive heart failure/fluid overload. Report Dictated on Electronically Signed By: Domingo Langley MD Electronically Signed Date/Time: 06/02/2023 6:23 PM EDT History/Other: Past Medical History: Past Medical History: Diagnosis Date Coronary artery disease Diabetes mellitus (HCC) Hypercholesteremia Hypertension Past Surgical History: Past Surgical History: Procedure Laterality Date DENTAL IMPLANT Allergy(ies): No Known Allergies Family History: No family history on file. Social History: Social History Tobacco Use Smoking status: Never Smokeless tobacco: Never Portions of the information within this encounter were entered using an electronic dictation system. Best attempts were made to edit/proofread the information prior to note completion. Despite the review of information, some errors may remain. If there are questions related to the information contained within the note please contact the signing physician directly. I spent 25 minutes with the pt which involved coordination of care, medical evaluation, review of records, and/or counseling of the pt regarding his/her condition/disease state/prognosis on the date of this note. * Kiersten Corey, PRODUCT MANAGER [employer]CIAL SERVICES - [employer] - 06/09/2023 6:53 AM EDT Images from the original note were not included. Cardiothoracic Surgery/[facility] Progress Note PATIENT NAME: Chau Barron DATE: 06/09/23 HPI: 82 y.o. with pmHx of HLD, HTN, T2DM who was transffered from outside hospital for CABG consideration. Per paper chart brought with the patient, he developed midsternal chest pressure, coughing, burping, and sweating while riding his lawnmower. By the time the patient arrived to the ED - chest pressure had slightly improved. Cardiac enzymes were elevated and he was admitted as NSTEMI and Cardiology was consulted. Cardiac cath was then preformed which showed: Distal LM 60-70% stenosis left main bifurcating into LAD, ramus and left circumflex. LAD with ostial and proximal ~70%. Distal LAD emsqgg31%, ostial LCx 70%, RCA large dominant , calcified with proximal RCA thrombus: JIMMY-3 flow in the RCA. He was transferred to [facility] for CABG consideration. Full workup completed at [facility], CT chest revealed lung nodule. Surgery planned for 06/06/23. Surgery/Procedure: 06/06/23: Dr. Peterson- CABGx 4 (HERNANDEZ-LAD, SVG-PDA, SVG- RAMUS, SVG-DIAG1), LLE EVH, LLL wedge resection, pericardial cyst resection Interval History: 06/09/23, POD# 3: Weaned off levophed yesterday, VSS overnight, afebrile. NSR on tele. On 6L NC, off HFNC. Resting in chair, motivated to increase mobility today. Review of Systems Constitutional: Positive for activity change, appetite change and fatigue. Negative for diaphoresisand fever. Respiratory: Positive for shortness of breath. Negative for cough and wheezing. Cardiovascular: Positive for leg swelling. Negative for chest pain and palpitations. Gastrointestinal: Negative for abdominal distention, nausea and vomiting. Skin: Negative for color change, pallor and rash. Objective: CT output cc/24hrs: 130 mL UO cc/24hrs: 3,345 mL Last BM Date: 06/08/23 Vitals: BP: 99/61, MAP (mmHg): 73, BP Method: Automatic Heart Rate: 76 Resp: 18 Temp: 37 C (98.6 F), Temp Source: Temporal BMI (Calculated): 36.21 CXR: BMP: Recent Labs 06/06/23 1112 06/07/23 0015 06/07/23 0708 06/07/23 1318 06/08/23 0533 06/09/23 0306 NA 138 139 -- -- 131* 130* K 4.1 3.4* < > 4.6 4.4 4.2 CL 109* 106 -- -- 102 100 CO2 21* 20* -- -- 20* 23 BUN 18 20 -- -- 22* 34* CREATININE 0.82 1.11 -- -- 1.02 1.11 CALCIUM 9.7 8.8 -- -- 8.7 8.6 MG 3.7* 2.6* -- -- 2.3 2.4* PHOS 2.9 -- -- -- -- -- < > = values in this interval not displayed. CBC: Recent Labs 06/07/23 0015 06/08/23 0533 06/09/23 0306 WBC 27.2* 20.8* 13.6* HGB 10.8 9.8* 9.8* 9.2* HCT 29.8* 29.4* 27.4* PLT 203 151 139* MCV 94.3 94.5 94.2 RDW 13.8 14.3 13.9 INR: Recent Labs 06/06/23 1112 06/07/23 0015 INR 1.6* 1.1 Physical Exam Cardiovascular: Rate and Rhythm: Normal rate and regular rhythm. Heart sounds: Normal heart sounds. No murmur heard. No friction rub. Pulmonary: Effort: Pulmonary effort is normal. Breath sounds: Decreased breath sounds present. No wheezing. Abdominal: General: Bowel sounds are normal. Palpations: Abdomen is soft. Tenderness: There is no abdominal tenderness. Genitourinary: Comments: Mccord catheter to straight drain Musculoskeletal: Right lower leg: Edema present. Left lower leg: Edema present. Skin: General: Skin is warm and dry. Capillary Refill: Capillary refill takes less than 2 seconds. Findings: Bruising and ecchymosis present. Comments: Surgical Incisions: well approximate; clean dry with no drainage noted. Surrounding skin no redness, warmth, or signs of infection noted. Neurological: Mental Status: He is alert. Psychiatric: Behavior: Behavior is cooperative. Assessment: MVCAD/NSTEMI s/p CABG LLL nodule (10mm) HTN T2DM HLD Post operative Pulm Management: Normal Post-operative Course Post-operative Atrial Fibrillation: []Yes [x] No Acute blood loss anemia/consumptive thrombocytopenia Plan: ASA/Statin Holding BB d/t borderline hypotension Lasix 40mg BID Reassess CT this afternoon for readiness for removal D/C mccord Transition to tele status PT/OT: Home with Home health PT, Home with assist PRN Pulmonary hygiene: IS and Acapella GI prophy: PO protonix DVT prophy:TEDs, SCDs, and Heparin SubQ TCC/Discharge Planning TBD Central Line: [x]Yes [] No Arterial Line: []Yes [x] No Mccord: [x]Yes [] No Restraints: []Yes [x] No Patient discussed and plan of day developed from multidisciplinary rounds between Cardiothoracic Surgery (Cardiothoracic Surgeon, BELKIS) and Critical Care Attending Cardiac Core Medications: ASA, Statin, and No BB due to hypotension EF: 55% (06/06/23) Blood Conservation: None noted in post-operative period Supervisor Properties: [facility] Associated attestation - Ying Mcintosh DO - 06/09/2023 3:42 PM EDT I personally saw and evaluated the patient on 06/09/23. I reviewed and agree with the BELKIS s documentation. I provided a substantive portion of the care of this patient. I personally performed the examand MDM for this encounter as follows Assessment: mvCAD/NSTEMI now s/p CABGx4 (POD 3) Left lower lobe nodule s/p left lower lobe wedge resection Pericardial cyst s/p pericardial cyst resection Post op pulmonary management: expected post op course Acute post op blood loss anemia Mild to moderate aortic stenosis HTN/HLD DM2 with hyperglycemia (A1c 7.5) Plan: -Weaned to regular NC yesterday evening, now on 6L, cont to wean as able . Encourage pulm toilet, IS/acapella, progressive mobility. Cont lasix 40 mg IV BID -DC chest tubes and mccord later today -cont ASA, statin -has not had any insulin requirements-->endocrine signing off -PT/OT, current recs are home with assist prn -tele status * Sheree Elliott, [employer] REPAIR CHIEF - 06/08/2023 2:11 PM EDT Images from the original note were not included. PHYSICAL THERAPY [facility] Treatment Note Name/MRN: Chau Barron ([id number]) Date of : 1940 Age: 82 y.o. Room/Bed: T1-116/T1-116 A Discharge Recommendation: (Currently at IP rehab level but likely will progress to home with assist, unable to assess gait due to pt being on high flow oxygen.) Equipment Needed: No Prior Level of Function ADL Assistance: Independent Ambulation Assistance: Independent Transfer Assistance: Independent Assessment Pt was limited today by high flow oxygen. O2 sats stayed 92% and above with standing activity. Reviewed sternal precautions and move within the tube Overall min assist for transfer and balance. If discharge were today would recommend IP rehab but pt is likely to progress to home with assist. Subjective Pt up in chair. Agreeable to PT. Pleasant. Issued HEP of P&C ex's. Pt currently on high flow oxygen via nasal pillows. Pain: reports sternum being sore no c/o pain on a pain scale Medical Precautions: No active isolations Proper PPE donned/doffed in accordance with facility standards. Fall Risk: Oswald Fall Risk Score: 45 (High Risk) Precautions/Restrictions: Sternal Precautions: No Pushing, No Pulling, No Lifting Greater Than 10 lbs Overall Cognitive Status: Exceptions - Following commands: follows one step commands consistently - Initiation: requires cues for some - Sequencing: requires cues for some Overall Orientation Status: Oriented to Place and Oriented to Person Family/Caregiver Present: none Objective Transfers/Mobility Sit to stand: Min Assist Stand to sit: Min Assist Cues to use momentum Device(s) used: none Exercises Exercises Hip Flexion: standing marches x 10 reps with UE support. seated marching x 10 reps, BLE, AROM Knee Long Arc Quad: seated x 10 reps, BLE, AROM Ankle Pumps: standing heel raises x 2 reps, with UE support Upper Extremity: P&C ex's #1-7 x 10 reps, 8&9 x 1 rep but too sore to continue. Comments: standing toe taps x 10 reps, BLE, with UE support I.S x 8 reps ~750-1000mL , cues for proper technique with fair carypver Balance: Static standing balance, CGA, Dynamic balance Min assist. Posture: good Plan Continue acute PT per plan of care. Safety/Education Safety Safety Devices in place: All fall risk precautions in place, call light within reach, left in chair, and no alarms engaged upon entry Restraints: No Education HEP, precautions, breathing, transfers Outcome Measures AM-PAC AM-PAC Inpatient Mobility Raw Score (No Stairs) : 13 JH-HLM JH-HLM Score: Static standing (1 or more minutes) Goals Patient Stated Goal: To have less pain, go home Encounter Problems Encounter Problems (Active) Cardiac Patient will perform bed mobility with CGA in order to improve independence and prepare for out of bed mobility. (Not Addressed) Start: 06/07/23 Expected End: 06/21/23 Patient will complete sit to stand transfer with CGA to none in order to improve safety and preparefor out of bed mobility. (Progressing) Start: 06/07/23 Expected End: 06/21/23 Patient will ambulate 600 feet or ambulate 5 minutes with supervision with RPE of 14 or lower. (Initiated) Start: 06/07/23 Expected End: 06/21/23 Patient will ascend and descend 4 # stairs with supervision rail for balance only. (Not Addressed) Start: 06/07/23 Expected End: 06/21/23 Patient will be independent with P&C exercises. (Progressing) Start: 06/07/23 Expected End: 06/21/23 Patient will be independent with managing secretions and home walking program. (Progressing) Start: 06/07/23 Expected End: 06/21/23 Pain - Adult Therapy Time Individual Co-treatment Time In 1332 Time Out 1357 Minutes 25 Timed Code Treatment Minutes: 25 Minutes (FA, TP) Sheree Elliott PTA * Aixa Mariscal, OT - 06/08/2023 10:44 AM EDT Images from the original note were not included. OCCUPATIONAL THERAPY [facility] Initial Evaluation Name/MRN: Chau Barron ([id number]) Evaluation Date: 06/08/2023 Date of : 1940 Admission Date: 06/02/2023 5:32 PM Age: 82 y.o. Room/Bed: T1-116/T1-116 A Discharge Recommendation: Home with assist PRN Assessment IMPRESSION: Pt presented with CAD now s/p CABG x4 and LLL wedge resection. Pt previously IND with ADLs, IADLs and mobility. Pt currently able to reach B socks via figure 4, stand up with minimal assistance, unable to attempt further mobility d/t high flow NC. Pt will likely progress to home, already owns a shower stool. Performance Deficits /Impairments: Decreased Functional Mobility, Decreased ADL status, Decreased ROM, Decreased Endurance, Decreased Balance, and Decreased High Level IADLs Prognosis: Good Decision Making: Medium Complexity Subjective Pt seated in recliner, very pleasant and agreeable to OT eval. Pain: 0-10 pain scale: 1/10 Location: chest/incision Past Medical History: Past Medical History: Diagnosis Date Coronary artery disease Diabetes mellitus (HCC) Hypercholesteremia Hypertension Past Surgical History: Past Surgical History: Procedure Laterality Date DENTAL IMPLANT Admission Diagnosis: Patient Active Problem List Diagnosis Date Noted CAD in [place] artery 06/02/2023 Medical Precautions: No active isolations Proper PPE donned/doffed in accordance with facility standards. Fall Risk: Oswald Fall Risk Score: 45 (High Risk) Precautions/Restrictions: Sternal Precautions: No Pushing, No Pulling, No Lifting Greater Than 10 lbs Family/Caregiver Present: none Overall Cognitive Status: WNL Overall Orientation Status: Oriented x4 Social/Functional History Patient admitted from home. Lives With: Spouse Type of Home: single family home Home Layout: Multi-Level Home (3 levels plus basement, bedroom on 2nd floor, office on the 3rd floor) Home Access: Stairs to Enter with Rails (# of stairs: 3) Bathroom Shower/Tub: tub shower (owns a stool but has not been using) Toilet: Standard Home Equipment: shower stool Homemaking Responsibilities: Independent Receives Help From: Spouse Active Pop Singer: Yes Prior Level of Function ADL Assistance: Independent Ambulation Assistance: Independent Transfer Assistance: Independent Objective ADLs LE Dressing: able to achieve figure 4 to adjust B socks Upper Extremity Assessment AROM: WFL PROM: Not assessed this session Strength: WNL Vision: wears glasses at all times and and are NOT being used during the eval Hearing: normal Bed Mobility Up in recliner Transfers/Functional Mobility Sit to stand: Min Assist Stand to sit: Min Assist Standing balance: Contact Guard Only able to tolerate standing for ~ 30 seconds before requesting to sit Device(s) used: none AM-PAC AM-PAC Inpatient Daily Activity Raw Score: 19 ADL Inpatient CMS G-Code Modifier: CK Plan Pt would benefit from skilled acute OT services to address Balance Training, Functional Mobility Training, Endurance Training, Self-Care/ADL Training, and Home Management Training. Frequency: 4x/week for 4 weeks Barriers: Medical complications Prognosis: excellent Safety/Education Safety Safety Devices in place: All fall risk precautions in place, call light within reach, left in chair, nurse notified, and no alarms engaged upon entry Restraints: N/A Education Education Given To: patient Education Provided: OT Role, Plan of Care, Precautions, ADL Adaptive Strategies, and Transfer Training Education Method: Verbal Barriers to Learning: None Education Outcome: Verbalized Understanding and Continued Education Needed Goals Patient Stated Goal: home Encounter Problems Encounter Problems (Active) Balance Patient will maintain static standing balance for 3 minutes with modified independence in order to demonstrate decreased risk of falling. Start: 06/08/23 Expected End: 07/06/23 Dressing Upper Extremities Patient will complete upper body dressing independently Start: 06/08/23 Expected End: 07/06/23 Dressings Lower Extremities Patient will dress lower body with mod I Start: 06/08/23 Expected End: 07/06/23 Mobility Patient will demonstrate functional ambulation with mod I Start: 06/08/23 Expected End: 07/06/23 Toileting Patient will complete toileting tasks at standard toilet with modified independence. Start: 06/08/23 Expected End: 07/06/23 Transfers Patient will complete functional transfer with least restrictive device with modified independence in order to prepare for ambulation. Start: 06/08/23 Expected End: 07/06/23 Patient will perform bed mobility with independence in order to improve independence and prepare for out of bed mobility. Start: 06/08/23 Expected End: 07/06/23 Therapy Time Individual Co-treatment Time In 0952 Time Out 1013 Minutes 21 Aixa Mariscal OT Patient's Occupational Therapy Plan of Care supervision is transferred to a [facility] Therapy Services Occupational Therapist. Goals and/or treatment plan was established in collaboration with patient/family/other representatives. * Chris Arcos APRN - [employer] - 06/08/2023 6:29 AM EDT Images from the original note were not included. Cardiothoracic Surgery/CCM Progress Note PATIENT NAME: Chau Barron DATE: 06/08/23 HPI: 82 y.o. with pmHx of HLD, HTN, T2DM who was transffered from outside hospital for CABG consideration. Per paper chart brought with the patient, he developed midsternal chest pressure, coughing, burping, and sweating while riding his lawnmower. By the time the patient arrived to the ED - chest pressure had slightly improved. Cardiac enzymes were elevated and he was admitted as NSTEMI and Cardiology was consulted. Cardiac cath was then preformed which showed: Distal LM 60-70% stenosis left main bifurcating into LAD, ramus and left circumflex. LAD with ostial and proximal ~70%. Distal LAD [id number]%, ostial LCx 70%, RCA large dominant , calcified with proximal RCA thrombus: JIMMY-3 flow in the RCA. He was transferred to [facility] for CABG consideration. Full workup completed at [facility], CT chest revealed lung nodule. Surgery planned for 06/06/23. Surgery/Procedure: 06/06/23: Dr. Peterson- CABGx 4 (HERNANDEZ-LAD, SVG-PDA, SVG- RAMUS, SVG-DIAG1), LLE EVH, LLL wedge resection, pericardial cyst resection Interval History: 06/08/23, POD# 02- VSS/Map stable overnight, did require increase in levo during resting hours, remains on High flow O2, he de-sats with pain and tachypnea. He is sitting up in a chair and labs stable. Current IV Drips: Levophed @ .04 Review of Systems Constitutional: Negative for chills, diaphoresis and fever. Respiratory: Negative for cough, shortness of breath and wheezing. Cardiovascular: Negative for palpitations and leg swelling. Gastrointestinal: Positive for nausea (Brief episode last night). Negative for abdominal distention, abdominal pain, constipation, diarrhea and vomiting. Neurological: Positive for dizziness, syncope and light-headedness. Objective: Last BM Date: 06/01/23 Vitals: BP: 115/56, MAP (mmHg): 74, BP Method: Automatic Heart Rate: 66 Resp: 21 Temp: 37.1 C (98.8 F), Temp Source: Temporal BMI (Calculated): 34.85 BMP: Recent Labs 06/06/23 1112 06/07/23 0015 06/07/23 0708 06/07/23 1318 06/08/23 0533 NA 138 139 -- -- 131* K 4.1 3.4* 3.6 4.6 4.4 CL 109* 106 -- -- 102 CO2 21* 20* -- -- 20* BUN 18 20 -- -- 22* CREATININE 0.82 1.11 -- -- 1.02 CALCIUM 9.7 8.8 -- -- 8.7 MG 3.7* 2.6* -- -- 2.3 PHOS 2.9 -- -- -- -- CBC: Recent Labs 06/06/23 1329 06/07/23 0015 06/08/23 0533 WBC 30.5* 27.2* 20.8* HGB 10.6* 10.8 9.8* 9.8* HCT 31.1* 29.8* 29.4* PLT 196 203 151 MCV 94.2 94.3 94.5 RDW 13.8 13.8 14.3 INR: Recent Labs 06/06/23 1112 06/07/23 0015 INR 1.6* 1.1 Physical Exam Vitals reviewed. Constitutional: General: He is not in acute distress. Appearance: He is not ill-appearing or diaphoretic. Neck: Comments: Central line. Cardiovascular: Rate and Rhythm: Normal rate and regular rhythm. Pulses: Normal pulses. Heart sounds: No murmur heard. Pulmonary: Effort: Pulmonary effort is normal. Breath sounds: No wheezing, rhonchi or rales. Abdominal: General: There is no distension. Palpations: Abdomen is soft. Tenderness: There is no abdominal tenderness. Comments: Chest tubes, dressing dry and intact. Genitourinary: Comments: Mccord. Musculoskeletal: General: No swelling. Skin: General: Skin is warm and dry. Capillary Refill: Capillary refill takes less than 2 seconds. Findings: Bruising present. Comments: MSI well approximated, no redness, warmth or drainage. Neurological: General: No focal deficit present. Mental Status: He is oriented to person, place, and time. Assessment: MVCAD/NSTEMI s/p CABG LLL nodule (10mm) HTN T2DM HLD Post operative Pulm Management: Normal Post-operative Course Post-operative Atrial Fibrillation: []Yes [x] No Plan: Continue levophed at low dose wean off during the day - ok to ambulate Wean off high flow Repeat lasix dose today Keep CT one more day Add Toradol for pericarditis Anticipate A-fib Start aspirin and statin -No BB until off of pressor support Advance diet, encourage PO intake. Gastric bubble resolved Heparin DVT prophy. Bowel regimen. Daily labs and CXR. Continue current pain regimen. Endocrinology consulted, appreciate recs. PT/OT: Ok to work with patient today Pulmonary hygiene: IS and Acapella GI prophy: PO protonix DVT prophy:TEDs, SCDs, and Heparin SubQ TCC/Discharge Planning: POD 1, assess daily. Central Line: [x]Yes [] No Arterial Line: []Yes [x] No Mccord: [x]Yes [] No Restraints: []Yes [x] No Patient discussed and plan of day developed from multidisciplinary rounds between Cardiothoracic Surgery (Cardiothoracic Surgeon, BELKIS) and Critical Care Attending Cardiac Core Medications: ASA, Statin, and No BB due to hypotension EF: 55% (06/06/23) Blood Conservation: None noted in post-operative period Supervisor Properties: [facility] Associated attestation - Ying Mcintosh DO - 06/08/2023 5:21 PM EDT I personally saw and evaluated the patient on 06/08/23. I reviewed and agree with the BELKIS s documentation. I provided a substantive portion of the care of this patient. I personally performed the examand MDM for this encounter as follows Assessment: mvCAD/NSTEMI now s/p CABGx4 (POD 2) Left lower lobe nodule s/p left lower lobe wedge resection Pericardial cyst s/p pericardial cyst resection Post op pulmonary management: expected post op course Acute post op blood loss anemia Mild to moderate aortic stenosis HTN/HLD DM2 with hyperglycemia (A1c 7.5) Plan: -cont HFNC, wean as able. Encourage pulm toilet, IS/acapella, progressive mobility. Responded well to lasix yesterday evening-->re-dose lasix today -weaned off pressors this morning -cont ASA, statin -insulin per endocrine recommendations -PT/OT Total critical care time for this patient with life-threatening unstable organ failure, including direct patient contact, management of life support systems, review of data including imaging and labs, and discussions with other team members and physicians at least 40 minutes so far today, excludingprocedures. * Mariluz Pacheco PT - 06/07/2023 4:00 PM EDT Images from the original note were not included. PHYSICAL THERAPY [facility] Initial Evaluation Name/MRN: Chau Barron ([id number]) Evaluation Date: 06/07/2023 Date of : 1940 Admission Date: 06/02/2023 5:32 PM Age: 82 y.o. Room/Bed: T1-116/T1-116 A Discharge Recommendation: (Currently at IP REhab level, but likely will improve and be able to return home pending progress.) Equipment Needed: No Assessment IMPRESSION: Chau Barron was admitted on with CAD and is now s/p CABG x 4, LLL wedge resection and pericardial cyst resection. He has a CT to water seal. He was up in the chair upon entry, and his buttocks needed a break from the chair. We ambulated him with assist of 1, one for the IV's, and a chair follow as well. He did have a syncopal episode this am when he got up. He is moving slowly, and not as confident as he was this am, but moving nonetheless. He ambulated 25', then turned around and returned 12 ' to the bed, and sat down with mod assist. He is following sternal precautions with reminders to do so. His was visiting during this evaluation. His O2 sats did drop during am bulation, and the nurse got Respiratory therapy to give him a treatment. He was made comfortable inthe bed with pillows and positioning. Diagnosis: s/p CABG and pericardial cyst resection. Prognosis: good Performance Deficits /Impairments: Increased Pain, Decreased Functional Mobility, Decreased Strength, Decreased Endurance, Decreased Balance, Decreased High Level IADLs, Decreased Coordination, and Decreased Posture Decision Making: High Complexity Subjective Patient was up in the chair, wanted to get back to the bed. He was willing to ambulate before getting to the bed. Pain: RN managing pain. Past Medical History: Past Medical History: Diagnosis Date Coronary artery disease Diabetes mellitus (HCC) Hypercholesteremia Hypertension Past Surgical History: Past Surgical History: Procedure Laterality Date DENTAL IMPLANT Admission Diagnosis: Patient Active Problem List Diagnosis Date Noted CAD in [place] artery 06/02/2023 Medical Precautions: No active isolations Proper PPE donned/doffed in accordance with facility standards. Fall Risk: Oswald Fall Risk Score: 45 (High Risk) Precautions/Restrictions: Sternal Precautions: No Pushing, No Pulling, No Lifting Greater Than 10 lbs Pacemaker Precautions Other Position/Activity Restriction: IV's, CT's, O2, mccord catheter, tele wires Lines/Drains/Airways: Family/Caregiver Present: spouse Overall Cognitive Status: WFL Overall Orientation Status: Oriented x4 Vision: wears glasses at all times and and are being used during the eval Hearing: normal Social/Functional History Patient admitted from home. Lives With: Spouse Type of Home: single family home Home Layout: Multi-Level Home Home Access: Stairs to Enter with Rails (# of stairs: 3) Bathroom Shower/Tub: Toilet: Standard Home Equipment: [employer] Homemaking Responsibilities: Independent Receives Help From: Spouse Active Pop Singer: Yes Prior Level of Function ADL Assistance: Independent Ambulation Assistance: Independent Transfer Assistance: Independent Objective Lower Extremity Assessment AROM: WFL PROM: WFL Strength: Exceptions: grossly 4/5 bilaterally Bed Mobility: Sit to supine: Mod Assist Rolling to right: Min Assist Scooting: Max Assist, x2 Person Assist Transfers Sit to stand: Mod Assist, x2 Person Assist Stand to sit: Mod Assist Bed to chair: Mod Assist, x2 Person Assist Ambulation Ambulation 1 Assistive device(s) used: Nezzie Assist level: max Distance (ft): 25', then 12' Quality of gait: antalgic, shuffling, uneven step length, slow marcie, postural sway Coordination: Impaired: he was hesitant, and also had a hard time lifting his right foot to clear the floor to advance it. Outcome Measures AM-PAC How much HELP from another person do you currently need Turning from your back to your side while in a flat bed without using bedrails?: A Lot Moving from lying on your back to sitting on the side of a flat bed without using bedrails?: A Lot Moving to and from a bed to a chair (including a wheelchair)?: A Lot Standing up from a chair using your arms (wheelchair or bedside chair)?: A Lot Walking in a hospital room?: A Lot Stair climbing assessed?: No AM-PAC Inpatient Mobility Raw Score (No Stairs) : 10 JH-HLM JH-HLM Score: Walked 25 ft or more (i.e. walked outside of room) Plan Pt would benefit from skilled acute PT services to address Strengthening, ROM, Balance Training, Functional Mobility Training, Endurance Training, Gait Training, Stair Training, Equipment Evaluation/Education, and Positioning. Frequency: 5x/week for 3 weeks Barriers: Pain and Decreased endurance Safety/Education Safety Safety Devices in place: All fall risk precautions in place, call light within reach, left in bed, patient at risk for falls, nurse notified, and no alarms engaged upon entry Restraints: No Education Education Given To: patient Education Provided: PT Role, PT Goals, Gait Training, Home Exercise Program, Precautions, Transfer Training, Equipment, Fall Prevention Education, and Discharge Recommendations Education Method: Verbal and Demonstration Barriers to Learning: None Education Outcome: Verbalized Understanding and Continued Education Needed Goals Patient Stated Goal: To have less pain, go home Encounter Problems Encounter Problems (Active) Cardiac Patient will perform bed mobility with CGA in order to improve independence and prepare for out of bed mobility. Start: 06/07/23 Expected End: 06/21/23 Patient will complete sit to stand transfer with CGA to [facility] in order to improve safety and preparefor out of bed mobility. Start: 06/07/23 Expected End: 06/21/23 Patient will ambulate 600 feet or ambulate 5 minutes with supervision with RPE of 14 or lower. Start: 06/07/23 Expected End: 06/21/23 Patient will ascend and descend 4 # stairs with supervision rail for balance only. Start: 06/07/23 Expected End: 06/21/23 Patient will be independent with P&C exercises. Start: 06/07/23 Expected End: 06/21/23 Patient will be independent with managing secretions and home walking program. Start: 06/07/23 Expected End: 06/21/23 Pain - Adult Therapy Time Individual Co-treatment Time In 0300 Time Out 0354 Minutes 54 Variance: 10 (waiting for nurse assist) Mariluz Pacheco PT Patient's Physical Therapy Plan of Care supervision is transferred to a [facility] Therapy Services Physical Therapist. Goals and/or treatment plan was established in collaboration with patient/family/other representatives. * Erica Kay, PRODUCT MANAGER [employer]CIAL SERVICES - [employer] - 06/07/2023 5:51 AM EDT Images from the original note were not included. Cardiothoracic Surgery/[facility] Progress Note PATIENT NAME: Chau Barron DATE: 06/07/23 HPI: 82 y.o. with pmHx of HLD, HTN, T2DM who was transffered from outside hospital for CABG consideration. Per paper chart brought with the patient, he developed midsternal chest pressure, coughing, burping, and sweating while riding his lawnmower. By the time the patient arrived to the ED - chest pressure had slightly improved. Cardiac enzymes were elevated and he was admitted as NSTEMI and Cardiology was consulted. Cardiac cath was then preformed which showed: Distal LM 60-70% stenosis left main bifurcating into LAD, ramus and left circumflex. LAD with ostial and proximal ~70%. Distal LAD hhavod52%, ostial LCx 70%, RCA large dominant , calcified with proximal RCA thrombus: JIMMY-3 flow in the RCA. He was transferred to [facility] for CABG consideration. Full workup completed at [facility], CT chest revealed lung nodule. Surgery planned for 06/06/23. Surgery/Procedure: 06/06/23: Dr. Peterson- CABGx 4 (HERNANDEZ-LAD, SVG-PDA, SVG- RAMUS, SVG-DIAG1), LLE EVH, LLL wedge resection, pericardial cyst resection Interval History: 06/07/23, POD# 01: 50 albumin, 1L LR. Afebrile, NSR on tele, BP requiring pressor support, extubated post-op and now on 6L NC. 1L LR and 50g albumin given overnight. Patient out of bed, up to chair this AM, did have a brief moment of loss of unconsciousness? Possibly orthostatic after standing. Pain tolerable. Tolerable PO intake. Current IV Drips: Epinephrine- 0.07mcg/kg/min VBG drawn at 0015: SvO2- 68.3 Review of Systems Constitutional: Negative for chills, diaphoresis and fever. Respiratory: Negative for cough, shortness of breath and wheezing. Cardiovascular: Negative for palpitations and leg swelling. Gastrointestinal: Positive for nausea (Brief episode last night). Negative for abdominal distention, abdominal pain, constipation, diarrhea and vomiting. Neurological: Positive for dizziness, syncope and light-headedness. Objective: CT output cc/24hrs: 815 UO cc/24hrs: 903 Last BM Date: 06/01/23 Vitals: BP: (!) 87/52, MAP (mmHg): 63, BP Method: Arterial line Heart Rate: 85 Resp: (!) 26 Temp: 36.9 C (98.5 F), Temp Source: Temporal BMI (Calculated): 32.96 BMP: Recent Labs 06/05/23 0022 06/06/23 1112 06/07/23 0015 NA 138 138 139 K 4.0 4.1 3.4* CL 106 109* 106 CO2 24 21* 20* BUN 19 18 20 CREATININE 0.93 0.82 1.11 CALCIUM 9.6 9.7 8.8 MG 2.0 3.7* 2.6* PHOS -- 2.9 -- CBC: Recent Labs 06/06/23 1112 06/06/23 1113 06/06/23 1329 06/07/23 0015 WBC 13.8* -- 30.5* 27.2* HGB 9.9* < > 10.6* 10.8 9.8* HCT 29.0* -- 31.1* 29.8* PLT 158 -- 196 203 MCV 93.5 -- 94.2 94.3 RDW 13.6 -- 13.8 13.8 < > = values in this interval not displayed. INR: Recent Labs 06/06/23 1112 06/07/23 0015 INR 1.6* 1.1 Physical Exam Vitals reviewed. Constitutional: General: He is not in acute distress. Appearance: He is not ill-appearing or diaphoretic. Neck: Comments: Central line. Cardiovascular: Rate and Rhythm: Normal rate and regular rhythm. Pulses: Normal pulses. Heart sounds: No murmur heard. Pulmonary: Effort: Pulmonary effort is normal. Breath sounds: No wheezing, rhonchi or rales. Abdominal: General: There is no distension. Palpations: Abdomen is soft. Tenderness: There is no abdominal tenderness. Comments: Chest tubes, dressing dry and intact. Genitourinary: Comments: Mccord. Musculoskeletal: General: No swelling. Skin: General: Skin is warm and dry. Capillary Refill: Capillary refill takes less than 2 seconds. Findings: Bruising present. Comments: MSI well approximated, no redness, warmth or drainage. Neurological: General: No focal deficit present. Mental Status: He is oriented to person, place, and time. Assessment: MVCAD/NSTEMI s/p CABG LLL nodule (10mm) HTN T2DM HLD Post operative Pulm Management: Normal Post-operative Course Post-operative Atrial Fibrillation: []Yes [x] No Acute blood loss anemia Plan: Give 50g albumin, 500mL LR. Wean epinephrine as able, goal MAP>65. -Arterial line unreliable, will remove, titrate based on cuff pressures. -May consider transition to levophed if patient remains on pressor support throughout today. Start aspirin and statin. -No BB until off of pressor support. Advance diet, encourage PO intake. Gastric bubble on CXR, monitor for nausea. If vomiting occurs, may need NG. Heparin injections for DVT prophy. Bowel regimen. Chest tubes to water seal. OK to sit in chair, hold off on ambulation for now d/t syncopal episode this AM while on pressor support. Daily labs and CXR. PRN electrolyte replacement protocols. Continue current pain regimen. Endocrinology consulted, appreciate recs. PT/OT: Will need to be assessed. Pulmonary hygiene: IS and Acapella GI prophy: PO protonix DVT prophy:TEDs, SCDs, and Heparin SubQ TCC/Discharge Planning: POD 1, assess daily. Central Line: [x]Yes [] No Arterial Line: [x]Yes [] No Mccord: [x]Yes [] No Restraints: []Yes [x] No Patient discussed and plan of day developed from multidisciplinary rounds between Cardiothoracic Surgery (Cardiothoracic Surgeon, BELKIS) and Critical Care Attending Cardiac Core Medications: ASA, Statin, and No BB due to hypotension EF: 55% (06/06/23) Blood Conservation: None noted in post-operative period Supervisor Properties: [facility] Associated attestation - Ying Mcintosh DO - 06/07/2023 4:46 PM EDT I personally saw and evaluated the patient on 06/07/23. I reviewed and agree with the BELKIS s documentation. I provided a substantive portion of the care of this patient. I personally performed the examand MDM for this encounter as follows Physical exam: Gen: awake, up in chair, NAD, A&0x3 HEENT: no JVD CV: RRR, no murmur, chest tubes with serosanguinous drainage, dressing clean/dry/intact Lungs: CTAB, no wheezing/rhonchi/crackles, breathing unlabored Abd: soft, no distention, decreased bowel sounds Ext: no edema, no cyanosis, <2 sec cap refill, 2+ bilateral radial pulses Skin: warm/dry, no rash Assessment: mvCAD/NSTEMI now s/p CABGx4 (POD 1) Left lower lobe nodule s/p left lower lobe wedge resection Pericardial cyst s/p pericardial cyst resection Post op pulmonary management: expected post op course Acute post op blood loss anemia Mild to moderate aortic stenosis HTN/HLD DM2 with hyperglycemia (A1c 7.5) Plan: -cont supplemental 02, wean as able. Encourage pulm toilet, IS/acapella, progressive mobility -cont epi gtt, wean as able. DC arterial line as waveform does not appear accurate. If remains on pressors by end of day, will consider switching to levophed as Ficks/mixed venous 02 sats have been wnl -start ASA, statin -insulin gtt per protocol, endocrine following Total critical care time for this patient with life-threatening unstable organ failure, including direct patient contact, management of life support systems, review of data including imaging and labs, and discussions with other team members and physicians at least 40 minutes so far today, excludingprocedures. * Shayy Pacheco RCP - 06/06/2023 2:09 PM EDT 06/06/23 1315 Patient Parameters Heart Rate 70 Resp 21 SpO2 99 % Settings Vent Mode SPONT Spontaneous Type TC FiO2 (%) 30 % PEEP/CPAP (cm H2O) 8 cm H20 Sensitivity 3 Expiratory Sensitivity (%) 25 % % Support 100 % Readings PIP Observed (cm H2O) 12 cm H2O MAP (cm H2O) 9.2 Resp Rate Observed 23 Vt (observed, mL) 306 mL Minute Ventilation (L/min) 8.61 L/min I:E Ratio 1:2.4 Plateau Pressure (cm H2O) 0 cm H2O Dynamic Compliance (L/cm H2O) 200 L/cm H2O Static Compliance (L/cm H2O) 0 Airway Resistance 3 Total PEEP (cm H2O) 0 cm H2O Alarms High RR Alarm 35 breaths per minute Insp Pressure High (cm H2O) 40 cm H2O MV High (L/min) 15 L/min MV Low (L/min) 2 L/min Vt High (betty) (mL) 900 mL Vt Low (betty) (mL) 200 mL Vt High (spont) (mL) 900 mL Vt Low (spont) (mL) 200 mL High VTi 1300 Apnea Interval (sec) 20 seconds Wean Screen Safety Screen Spontaneous Breathing Trial (SBT) Proceed with SBT - No exclusion criteria met Spontaneous Breathing Trial Weaning Start Time 1315 Weaning Tidal Volume 415 mL Weaning Respiratory Rate 23 Spontaneous Minute Volume (MV) 9.6 Total RSBI 55 Weaning Tolerance Good Weaning Stop Time 1405 Weaning Duration (min) 45 Spontaneous Breathing Trial (SBT) Outcome SBT Passed PT extubated to nasal cannula * Chris Arcos APRN - CATHRYN - 06/05/2023 10:52 AM EDT Images from the original note were not included. Cardiothoracic Surgery Progress Note PATIENT NAME: Chau Barron DATE: 06/05/23 HPI: 82 y.o. with pmHx of HLD, HTN, T2DM who was transffered from outside hospital for CABG consideration. Per paper chart brought with the patient, he developed midsternal chest pressure, coughing, burping, and sweating while riding his lawnmower. By the time the patient arrived to the ED - chest pressure had slightly improved. Cardiac enzymes were elevated and he was admitted as NSTEMI and Cardiology was consulted. Cardiac cath was then preformed which showed: Distal LM 60-70% stenosis left main bifurcating into LAD, ramus and left circumflex. LAD with ostial and proximal ~70%. Distal LAD avghpl55%, ostial LCx 70%, RCA large dominant , calcified with proximal RCA thrombus: JIMMY-3 flow in the RCA. He was transferred to [facility] for CABG consideration. Surgery/Procedure: Planned CABG JAYCE 06/06/23 Interval History: 06/05/23: pt eager for operation tomorrow. No ne changes overnight Review of Systems Constitutional: Negative for diaphoresis, fatigue and fever. Respiratory: Negative for cough, shortness of breath and wheezing. Cardiovascular: Negative for chest pain, palpitations and leg swelling. Gastrointestinal: Negative for abdominal distention, constipation and diarrhea. Skin: Negative for color change, pallor and rash. Objective: Last BM Date: 06/01/23 Vitals: BP: 127/91, MAP (mmHg): 104, BP Method: Automatic Heart Rate: 65 Resp: 14 Temp: 37.2 C (98.9 F), Temp Source: Temporal BMI (Calculated): 32.79 BMP: Recent Labs 06/03/23 0148 06/04/23 0224 06/05/23 0022 NA 138 136 138 K 4.2 4.9 4.0 CL 107 103 106 CO2 24 BUN 14 21* 19 CREATININE 0.87 0.95 0.93 CALCIUM 9.4 9.3 9.6 MG 2.2 2.2 2.0 CBC: Recent Labs 06/03/23 0148 06/04/23 0224 06/05/23 0022 WBC 10.0 13.3* 13.8* HGB 13.2 14.0 13.5 HCT 38.2* 41.1 38.6* PLT 210 232 224 MCV 91.4 92.6 91.0 RDW 13.4 13.5 13.5 INR: Recent Labs 06/02/23 1800 INR 1.0 Physical Exam Constitutional: General: He is not in acute distress. Appearance: Normal appearance. Cardiovascular: Rate and Rhythm: Normal rate and regular rhythm. Pulses: Normal pulses. Heart sounds: Normal heart sounds. No murmur heard. No friction rub. Pulmonary: Effort: Pulmonary effort is normal. Breath sounds: Normal breath sounds. Abdominal: General: Bowel sounds are normal. Palpations: Abdomen is soft. Tenderness: There is no abdominal tenderness. Musculoskeletal: Right lower leg: No edema. Left lower leg: No edema. Skin: General: Skin is warm and dry. Capillary Refill: Capillary refill takes less than 2 seconds. Neurological: Mental Status: He is alert. Assessment: MVCAD/NSTEMI HTN T2DM HLD Plan: Plan for CANG and left lower lobe wedge resection tomorrow Pre-op orders placed No changes to medications Tele status Disposition: planned surgery 06/06/23 Patient discussed and plan of day developed with Cardiothoracic Surgery Surgeon Associated attestation - Reta Peterson MD - 06/05/2023 12:16 PM EDT DOS: 06/05/2023 I personally performed a face to face diagnostic evaluation on this patient. I agree with the findings and plan of care as documented by the [employer]ODUCT [employer], there has been no change in the physical exam or findings unless otherwise noted below. Plan for CABG on 06/06/2023 Possible left lower lobe wedge biopsy A total of 25 minutes were spent between the face to face encounter, physical exam, reviewing the medical history, coordinating the patient's care, counseling/educating the patient, ordering prescript ions/medications/tests/procedures, interpreting results and documenting clinical information in thepatient's electronic health record on the day of the encounter. The patient was seen and examined independently and relevant data reviewed by myself. A full chart review was performed. Reta Peterson MD Cardiothoracic Surgery * CHRISTIANO Ruiz CNP - 06/05/2023 7:00 AM EDT Cardiothoracic Surgery Interval Note Plan for CABG tomorrow with 10mm lung nodule wedge resection orders placed for Pre-op. * Yoko Lerma - 06/04/2023 1:27 PM EDT Nutrition rescreen completed. Chart reviewed. Patient to be monitored and followed by the diet data communications technician. ROC Zuñiga * CHRISTIANO Martinez CNP - 06/04/2023 7:47 AM EDT Images from the original note were not included. Cardiothoracic Surgery Progress Note PATIENT NAME: Chau Barron DATE: 06/04/23 HPI: 82 y.o. with pmHx of HLD, HTN, T2DM who was transffered from outside hospital for CABG consideration. Per paper chart brought with the patient, he developed midsternal chest pressure, coughing, burping, and sweating while riding his lawnmower. By the time the patient arrived to the ED - chest pressure had slightly improved. Cardiac enzymes were elevated and he was admitted as NSTEMI and Cardiology was consulted. Cardiac cath was then preformed which showed: Distal LM 60-70% stenosis left main bifurcating into LAD, ramus and left circumflex. LAD with ostial and proximal ~70%. Distal LAD %, ostial LCx 70%, RCA large dominant , calcified with proximal RCA thrombus: JIMMY-3 flow in the RCA. He was transferred to [facility] for CABG consideration. Surgery/Procedure: Planned CABG JAYCE 06/06/23 Interval History: 06/04/23: No acute issues overnight. No cardiac symptoms. All questions answered. Review of Systems Constitutional: Negative for diaphoresis, fatigue and fever. Respiratory: Negative for cough, shortness of breath and wheezing. Cardiovascular: Negative for chest pain, palpitations and leg swelling. Gastrointestinal: Negative for abdominal distention, constipation and diarrhea. Skin: Negative for color change, pallor and rash. Objective: Last BM Date: 06/01/23 Vitals: BP: 119/70, MAP (mmHg): 85, BP Method: Automatic Heart Rate: 73 Resp: 16 Temp: 37 C (98.6 F), Temp Source: Temporal BMI (Calculated): 33.01 BMP: Recent Labs 06/02/23 1800 06/03/23 0148 06/04/23 022 NA 135 138 136 K 4.1 4.2 4.9 CL 105 107 103 CO2 21* 25 24 BUN 14 14 21* CREATININE 0.81 0.87 0.95 CALCIUM 9.5 9.4 9.3 MG 2.3 2.2 2.2 CBC: Recent Labs 06/02/23 1800 06/03/23 0148 06/04/23 0224 WBC 11.0* 10.0 13.3* HGB 13.5 13.2 14.0 HCT 39.8* 38.2* 41.1 PLT 229 210 232 MCV 93.6 91.4 92.6 RDW 13.4 13.4 13.5 INR: Recent Labs 06/02/23 1800 INR 1.0 Physical Exam Constitutional: General: He is not in acute distress. Appearance: Normal appearance. Cardiovascular: Rate and Rhythm: Normal rate and regular rhythm. Pulses: Normal pulses. Heart sounds: Normal heart sounds. No murmur heard. No friction rub. Pulmonary: Effort: Pulmonary effort is normal. Breath sounds: Normal breath sounds. Abdominal: General: Bowel sounds are normal. Palpations: Abdomen is soft. Tenderness: There is no abdominal tenderness. Musculoskeletal: Right lower leg: No edema. Left lower leg: No edema. Skin: General: Skin is warm and dry. Capillary Refill: Capillary refill takes less than 2 seconds. Neurological: Mental Status: He is alert. Assessment: MVCAD/NSTEMI HTN T2DM HLD Plan: Continue preoperative workup No changes to medications Tele status Disposition: planned surgery 06/06/23 Patient discussed and plan of day developed with Cardiothoracic Surgery Surgeon Associated attestation - Reta Peterson MD - 06/05/2023 10:29 AM EDT DOS: 06/04/2023 I personally performed a face to face diagnostic evaluation on this patient. I agree with the findings and plan of care as documented by the [employer], there has been no change in the physical exam or findings unless otherwise noted below. 82 M with MVCAD Awaiting CABG, tentative 06/05 CT shows LLL nodule. Possible biopsy during CABG if amenable. Nodule appears benign. If not amenable, will plan for observation or percutaneous biopsy as OP. Echo pending Obesity (BMI 30 - 39) A total of 25 minutes were spent between the face to face encounter, physical exam, reviewing the medical history, coordinating the patient's care, counseling/educating the patient, ordering prescript ions/medications/tests/procedures, interpreting results and documenting clinical information in thepatient's electronic health record on the day of the encounter. The patient was seen and examined independently and relevant data reviewed by myself. A full chart review was performed. Reta Peterson MD Cardiothoracic Surgery documented in this [facility]04-30-2024 NoteDischarge Summary: Cardiothoracic Surgery Chau Barron, 82 y.o., 1940 ADMIT DATE: 06/02/2023 DISCHARGE DATE: 06/13/2023 VISIT STATUS: Admission CODE STATUS: Full Code DISCHARGING SURGEON: Reta Peterson MD, Office Number: [phone] DISCHARGE DIAGNOSES: MVCAD/NSTEMI s/p CABG LLL nodule (10mm) HTN T2DM HLD Post operative Pulm Management: Normal Post-operative Course Post-operative Atrial Fibrillation: []Yes [x] No Acute blood loss anemia/consumptive thrombocytopenia -Home health. -Oxy PRN for 7 days. Acetaminophen PRN. -Aspirin, statin and BB. -Lasix and K supplement x 7 days. -Will need to establish with [facility]. Final Diagnosis A. LUNG, LEFT LOWER LOBE, WEDGE RESECTION-PORTION OF LUNG WITH NECROTIZING GRANULOMA Comment: Acid-fast and fungal stains are negative. B. PERICARDIAL [id number] MESOTHELIAL LINED CYST Comment: Immunohistochemical stains are performed on the specimen and the results are as follows: Calretinin-positive, supportive of mesothelial lining WT1-positive, supportive of mesothelial lining [id number] Pankeratin-positive [id number] at 0813 BMI CLASSIFICATION:Obese (BMI 30.0-39.9) TREATMENT TEAM: Primary Care Physician: Kishan Ford MD Supervisor Properties: Will need established. SURGERY: 06/06/23: Dr. Peterson- CABGx 4 (HERNANDEZ-LAD, SVG-PDA, SVG- RAMUS, SVG-DIAG1), LLE EVH, LLL wedge resection, pericardial cyst resection HOSPITAL COURSE: 82 y.o. with pmHx of HLD, HTN, T2DM who was transffered from outside hospital for CABG consideration. Per paper chart brought with the patient, he developed midsternal chest pressure, coughing, burping, and sweating while riding his lawnmower. By the time the patient arrived to the ED - chest pressure had slightly improved. Cardiac enzymes were elevated and he was admitted as NSTEMI and Cardiology was consulted. Cardiac cath was then preformed which showed: Distal LM 60-70% stenosis left main bifurcating into LAD, ramus and left circumflex. LAD with ostial and proximal ~70%. Distal LAD around 95%, ostial LCx 70%, RCA large dominant , calcified with proximal RCA thrombus: JIMMY-3 flow in the RCA. He was transferred to [facility] for CABG consideration. Full workup completed at [facility], CT chest revealed lung nodule. Surgery planned for 06/06/23. Patient required low dose pressor support post-op for a couple of days and HFNC. Weaned off of both by POD #3, then began to progress well. Required diuresis. Stayed inpatient to gain strength and be sure would be able to help when he would return home. A lot of time was spent educating both patient and on home going instructions. Patient discharged home on POD #07 with and daughter. DIAGNOSTICS: BP 130/66 Pulse 70 Temp 36.7 ?C (98.1 ?F) (Temporal) Resp 16 Ht 6' 3 (1.905 m) Wt 272 lb (123 kg) SpO2 95% BMI 34.00 kg/m? Recent Labs 06/11/23 0110 06/12/23 0010 06/13/23 0029 CREATININE 1.24 1.11 1.05 HGB 9.3* 9.2* 10.4* PLT 208 241 325 WBC 11.6* 11.4* 14.4* NA 136 135 136 K 3.7 3.9 4.0 DISCHARGE MEDICATIONS: Medication List START taking these medications acetaminophen 500 MG tablet Commonly known as: Tylenol Take 2 tablets (1,000 mg) by mouth 3 times daily for 21 days. furosemide 40 MG tablet Commonly known as: Lasix Take 1 tablet (40 mg) by mouth daily for 7 days. Start taking on: June 14, 2023 metoprolol tartrate 25 MG tablet Commonly known as: Lopressor Take 1 tablet (25 mg) by mouth 2 times daily. oxyCODONE 5 MG immediate release tablet Commonly known as: Roxicodone Take 1 tablet (5 mg) by mouth every 6 hours as needed for severe pain (7-10) for up to 7 days. potassium chloride CR 20 MEQ ER tablet Commonly known as: Klor-Con M20 Take 1 tablet (20 mEq) by mouth daily for 7 days. Do not crush or chew. Take daily while taking lasix. CONTINUE taking these medications ascorbic acid 1000 MG tablet Commonly known as: Vitamin C aspirin 81 MG EC tablet atorvastatin 40 MG tablet Commonly known as: Lipitor Cholecalciferol 25 MCG (1000 UT) chewable tablet co-enzyme Q-10 30 MG capsule metFORMIN (OSM) 500 MG 24 hr tablet Commonly known as: Fortamet niacinamide 500 MG tablet STOP taking these medications valsartan 80 MG tablet Commonly known as: Diovan Where to Get Your Medications These medications were sent to [facility] [address] [place] [address] Hours: Monday to Monday 10 am to 6 pm acetaminophen 500 MG tablet furosemide 40 MG tablet metoprolol tartrate 25 MG tablet oxyCODONE 5 MG immediate release tablet potassium chloride CR 20 MEQ ER tablet ACTIVITY: activity as tolerated, strict post-sternotomy/post-thoracotomy sternal precautions as outlined in the home going instructions, and no driving or operating heavy machinery until released by p (more content not included)... [facility] [id number] Hospital course Narrative* Erica Kay, [employer] - [employer] CAPTAIN - 06/13/2023 12:18 PM EDT Images from the original note were not included. Discharge Summary: Cardiothoracic Surgery Chau Barron, 82 y.o., 1940 ADMIT DATE: 06/02/2023 DISCHARGE DATE: 06/13/2023 VISIT STATUS: Admission CODE STATUS: Full Code DISCHARGING SURGEON: Reta Peterson MD, Office Number: [phone] DISCHARGE DIAGNOSES: MVCAD/NSTEMI s/p CABG LLL nodule (10mm) HTN T2DM HLD Post operative Pulm Management: Normal Post-operative Course Post-operative Atrial Fibrillation: []Yes [x] No Acute blood loss anemia/consumptive thrombocytopenia -Home health. -Oxy PRN for 7 days. Acetaminophen PRN. -Aspirin, statin and BB. -Lasix and K supplement x 7 days. -Will need to establish with [facility]. Final Diagnosis A. LUNG, LEFT LOWER LOBE, WEDGE RESECTION-PORTION OF LUNG WITH NECROTIZING GRANULOMA Comment: Acid-fast and fungal stains are negative. B. PERICARDIAL [id number] MESOTHELIAL LINED CYST Comment: Immunohistochemical stains are performed on the specimen and the results are as follows: Calretinin-positive, supportive of mesothelial lining WT1-positive, supportive of mesothelial lining [id number] Pankeratin-positive Pst-CF8-[id number] at 0813 BMI CLASSIFICATION:Obese (BMI 30.0-39.9) TREATMENT TEAM: Primary Care Physician: Kishan Ford MD Supervisor Properties: Will need established. SURGERY: 06/06/23: Dr. Peterson- CABGx 4 (HERNANDEZ-LAD, SVG-PDA, SVG- RAMUS, SVG- DIAG1), LLE EVH, LLL wedge resection, pericardial cyst resection HOSPITAL COURSE: 82 y.o. with pmHx of HLD, HTN, T2DM who was transffered from outside hospital for CABG consideration. Per paper chart brought with the patient, he developed midsternal chest pressure, coughing, burping, and sweating while riding his lawnmower. By the time the patient arrived to the ED - chest pressure had slightly improved. Cardiac enzymes were elevated and he was admitted as NSTEMI and Cardiology was consulted. Cardiac cath was then preformed which showed: Distal LM 60-70% stenosis left main bifurcating into LAD, ramus and left circumflex. LAD with ostial and proximal ~70%. Distal LAD aybrjq17%, ostial LCx 70%, RCA large dominant , calcified with proximal RCA thrombus: JIMMY-3 flow in the RCA. He was transferred to [facility] for CABG consideration. Full workup completed at [facility], CT chest revealed lung nodule. Surgery planned for 06/06/23. Patient required low dose pressor support post-op for a couple of days and HFNC. Weaned off of both by POD #3, then began to progress well. Required diuresis. Stayed inpatient to gain strength and be sure would be able to help when he would return home. A lot of time was spent educating both patient and on home going instructions. Patient discharged home on POD #07 with and daughter. DIAGNOSTICS: BP 130/66 Pulse 70 Temp 36.7 C (98.1 F) (Temporal) Resp 16 Ht 6' 3 (1.905 m) Wt 272 lb (123 kg) SpO2 95% BMI 34.00 kg/m Recent Labs 06/11/23 0110 06/12/23 0010 06/13/23 0029 CREATININE 1.24 1.11 1.05 HGB 9.3* 9.2* 10.4* PLT 208 241 325 WBC 11.6* 11.4* 14.4* NA 136 135 136 K 3.7 3.9 4.0 DISCHARGE MEDICATIONS: Medication List START taking these medications acetaminophen 500 MG tablet Commonly known as: Tylenol Take 2 tablets (1,000 mg) by mouth 3 times daily for 21 days. furosemide 40 MG tablet Commonly known as: Lasix Take 1 tablet (40 mg) by mouth daily for 7 days. Start taking on: June 14, 2023 metoprolol tartrate 25 MG tablet Commonly known as: Lopressor Take 1 tablet (25 mg) by mouth 2 times daily. oxyCODONE 5 MG immediate release tablet Commonly known as: Roxicodone Take 1 tablet (5 mg) by mouth every 6 hours as needed for severe pain (7-10) for up to 7 days. potassium chloride CR 20 MEQ ER tablet Commonly known as: Klor-Con M20 Take 1 tablet (20 mEq) by mouth daily for 7 days. Do not crush or chew. Take daily while taking lasix. CONTINUE taking these medications ascorbic acid 1000 MG tablet Commonly known as: Vitamin C aspirin 81 MG EC tablet atorvastatin 40 MG tablet Commonly known as: Lipitor Cholecalciferol 25 MCG (1000 UT) chewable tablet co-enzyme Q-10 30 MG capsule metFORMIN (OSM) 500 MG 24 hr tablet Commonly known as: Fortamet niacinamide 500 MG tablet STOP taking these medications valsartan 80 MG tablet Commonly known as: Diovan Where to Get Your Medications These medications were sent to [facility] [address] [place], [place] [id number] Hours: Monday to Monday 10 am to 6 pm acetaminophen 500 MG tablet furosemide 40 MG tablet metoprolol tartrate 25 MG tablet oxyCODONE 5 MG immediate release tablet potassium chloride CR 20 MEQ ER tablet ACTIVITY: activity as tolerated, strict post-sternotomy/post-thoracotomy sternal precautions as outlined in the home going instructions, and no driving or operating heavy machinery until released by provider STRICT POST-STERNOTOMY/POST-THORACOTOMY PRECAUTIONS OUTLINED IN THE HOME GOING INSTRUCTIONS FOLLOW UP: 06/26/23 at 11:30AM with CT Surgery. [address] [facility] [address], [place] [address] Dept: [phone] Dept CORE CARDIAC MEDICATIONS PRESCRIBED AT DISCHARGE: Beta-silvano prescribed at discharge: [x] Yes [] No - reason why: ACEi or ARB prescribed at discharge: [] Yes [x] No - reason why: Statin prescribed at discharge: [x] Yes [] No - reason why: Anti-platelet agent prescribed at discharge: [] Yes [x] No - reason why: If yes, type: Post-operative Atrial Fibrillation: []Yes [x] No OAC: [] Yes [x] No Initial Post-op RBC transfusion date/reason: none noted during post-operative course Chronic Lung Disease: Moderate (FEV1 50% to 59% of predicted, and/or on chronic oral/systemic steroid therapy aimed at lung disease) DISPOSITION: Home with Home Assist A copy of the discharge instructions which included the medications at the time of discharge, follow-up appointments, phone numbers to call with questions, activity, restrictions, and limitations wasprovided to the patient or their family. We greatly appreciate the opportunity to participate in the care of your patient. If you have any additional questions or concerns regarding any aspects of their care or management please do not hesitate to contact us. SIGNED: CHRISTIANO Gee CNP 06/13/2023, 12:19 PM documented in this [facility]04-30-2024 Miscellaneous Notes* Care Coordination - Unknown Case Management - 06/13/2023 12:14 PM EDT Patient Choice Patient Name: CHAU BARRON Date of : 1940 All Providers Sent Referral Name: [facility] Phone: [phone] [address]: [address] [place] [id number] * Care Coordination - Afia Arce RN - 06/13/2023 12:08 PM EDT Images from the original note were not included. Care Management Progress Note Patient remains in [facility] ICU s/p CABG x 4 POD # 4. Plan to discharge home, spoke with patient and at length yesterday, aware [facility] will set up home care. No further DME or discharge needs expressed. [facility] notified of dc. Discharge Milestones and Delays Expected Date/Time: 06/13/2023 Disposition: Home or Self Care Transport status: No current request Discharge Milestones Completed Place discharge order Complete med reconciliation Case mgmt discharge readiness Expected Discharge History Expected Date/Time Set By Reviewed At 06/13/2023 Erica aKy, CHRISTIANO - [employer]TAIN 06/13/2023 12:08 PM 06/13/2023 Afia Arce RN 06/12/2023 10:08 AM 06/13/2023 Afia Arce RN 06/09/2023 10:31 AM 06/13/2023 Afia Arce RN 06/07/2023 9:02 AM 06/09/2023 Erica Kay APRN - [employer] 06/02/2023 2:17 PM Length of Stay (Days): 11 GMLOS: 8.2 * Care Coordination - Afia Arce RN - 06/12/2023 2:46 PM EDT Images from the original note were not included. Care Management Progress Note Patient remains in [facility] ICU s/p CABG x 4 and LLL wedge resection POD # 6. VSS, on RA, in NSR on tele, continuing lasix BID, +BM, and PT recommending home with [facility]. [facility] Discharge Milestones and Delays Expected Date/Time: 06/13/[address] discharge order Complete med reconciliation Case mgmt discharge readiness Clinical Stability Diagnsotic Workup Expected Discharge History Expected Date/Time Set By Reviewed At 06/13/2023 Afia Arce RN 06/12/2023 10:08 AM 06/13/2023 Afia Arce RN 06/09/2023 10:31 AM 06/13/2023 Afia Arce RN 06/07/2023 9:02 AM 06/09/2023 Erica Kay, PRODUCT MANAGER [employer]CIAL SERVICES - [employer]TAIN 06/02/2023 2:17 PM Length of Stay (Days): 10 GMLOS: 8.2 * Care Plan - Krista Knapp RN - 06/10/2023 7:11 PM EDT The patient is Moderately Stable - Low risk of patient condition declining or worsening The patient's goals for the shift include Stay comfortable The clinical goals for the shift include remain hemodynamically stable Problem: Pain - Adult Goal: Verbalizes/displays adequate comfort level or baseline comfort level Outcome: Progressing Problem: Safety - Adult Goal: Free from fall injury Outcome: Progressing Problem: Discharge Planning Goal: Discharge to home or other facility with appropriate resources Outcome: Progressing Problem: Cardiovascular - Adult Goal: Maintains optimal cardiac output and hemodynamic stability Outcome: Progressing Flowsheets (Taken 06/10/2023 0730) Maintains optimal cardiac output and hemodynamic stability: Monitor blood pressure and heart rate Monitor urine output and notify Licensed Independent Practitioner for values outside of normal range Assess for signs of decreased cardiac output Problem: Cardiovascular - Adult Goal: Absence of cardiac dysrhythmias or at baseline Outcome: Progressing Flowsheets (Taken 06/10/2023 0730) Absence of cardiac dysrhythmias or at baseline: Monitor cardiac rate and rhythm Assess for signs of decreased cardiac output * Care Plan - Yanni Camarillo RN - 06/09/2023 8:05 PM EDT Problem: Pain - Adult Goal: Verbalizes/displays adequate comfort level or baseline comfort level Outcome: Progressing Flowsheets (Taken 06/09/20232003) Verbalizes/displays adequate comfort level or baseline comfort level: Encourage patient to monitor pain and request assistance Assess pain using appropriate pain scale Administer analgesics based on type and severity of pain and evaluate response Implement non-pharmacological measures as appropriate and evaluate response Consider cultural and social influences on pain and pain management Notify Licensed Independent Practitioner if interventions unsuccessful or patient reports new pain Problem: Safety - Adult Goal: Free from fall injury Outcome: Progressing Flowsheets (Taken 06/04/2023 0800 by Chayito Busby RN) Free from fall injury: Instruct family/caregiver on patient safety Problem: Discharge Planning Goal: Discharge to home or other facility with appropriate resources Outcome: Progressing Flowsheets (Taken 06/09/20232003) Discharge to home or other facility with appropriate resources: Identify barriers to discharge with patient and caregiver Arrange for needed discharge resources and transportation as appropriate Identify discharge learning needs (meds, wound care, etc) Arrange for interpreters to assist at discharge as needed Refer to discharge planning if patient needs post-hospital services based on physician order or complex needs related to functional status, cognitive ability or social support system Problem: Cardiovascular - Adult Goal: Maintains optimal cardiac output and hemodynamic stability Outcome: Progressing Flowsheets (Taken 06/09/20232003) Maintains optimal cardiac output and hemodynamic stability: Monitor blood pressure and heart rate Monitor urine output and notify Licensed Independent Practitioner for values outside of normal range Assess for signs of decreased cardiac output Administer fluid and/or volume expanders as ordered Administer vasoactive medications as ordered For PPHN infants, administer sedation as ordered and minimize all controllable stressors. Goal: Absence of cardiac dysrhythmias or at baseline Outcome: Progressing Flowsheets (Taken 06/09/20232003) Absence of cardiac dysrhythmias or at baseline: Monitor cardiac rate and rhythm Assess for signs of decreased cardiac output Administer antiarrhythmia medication and electrolyte replacement as ordered Problem: Knowledge Deficit Goal: Patient/family/caregiver demonstrates understanding of disease process, treatment plan, medications, and discharge instructions Outcome: Progressing Flowsheets (Taken 06/09/20232003) Patient/family/caregiver demonstrates understanding of disease process, treatment plan, medications, and discharge instructions: Complete learning assessment and assess knowledge base Provide teaching via preferred learning methods Provide teaching at level of understanding Problem: Potential for Compromised Skin Integrity Goal: Skin Integrity is Maintained or Improved Outcome: Progressing Flowsheets (Taken 06/09/20232003) Skin integrity is maintained or improved: Assess and monitor skin integrity Relieve pressure to bony prominences Collaborate with interdisciplinary team and initiate plans and interventions as needed Encourage use of lotion/moisturizer on skin Keep skin clean and dry Monitor patient's hygiene practices Alternate a full bath with partial baths for elderly Avoid shearing Turn patient Identify patients at risk for skin breakdown on admission and per policy Goal: Nutritional status is improving Outcome: Progressing Flowsheets (Taken 06/09/20232003) Nutritional status is improving: Monitor and assess patient for malnutrition (ex- brittle hair, bruises, dry skin, pale skin and conjunctiva, muscle wasting, smooth red tongue, and disorientation) Collaborate with interdisciplinary team and initiate plan and interventions as ordered Monitor patient's weight and dietary intake as ordered or per policy Utilize nutrition screening tool and intervene per policy Determine patient's food preferences and provide high-protein, high-caloric foods as appropriate Assist patient with eating Allow adequate time for meals Encourage patient to take dietary supplement as ordered Collaborate with clinical piercing mill operator Include patient/family/caregiver in decisions related to nutrition Problem: Urinary Incontinence Goal: Perineal skin integrity is maintained or improved Outcome: Progressing Flowsheets (Taken 06/09/20232003) Perineal skin integrity is maintained or improved: Assess genitourinary system, perineal skin, labs (urinalysis), and history of incontinence to include past management, aggravating, and alleviating factors Collaborate with interdisciplinary team including wound, ostomy, and continence nurse and initiate plans and interventions as needed Keep skin clean and dry Apply urine containment device Apply skin protectant Develop skin care regimen Provide privacy when changing patient's incontinence device to maintain their dignity * Care Coordination - Afia Arce RN - 06/09/2023 10:31 AM EDT Images from the original note were not included. Care Management Progress Note Patient remains in CTV ICU s/p CBAG x 4 and LLL wedge resection POD # 3. Remains on 6L NC, weaned off Levo-VSS, in NSR on tele, chest tube to water seal- potential removal, insulin per endocrine, and PT recommending IPR currently and OT recommending home with assist. DCP-home with AB following for home care Discharge Milestones and Delays Expected Date/Time: 06/13/[address] discharge order Complete med reconciliation Case mgmt discharge readiness Clinical Stability Diagnsotic Workup Expected Discharge History Expected Date/Time Set By Reviewed At 06/13/2023 Afia Arce RN 06/09/2023 10:31 AM 06/13/2023 Afia Arce RN 06/07/2023 9:02 AM 06/09/2023 Erica Kay APRN - CATHRYN 06/02/2023 2:17 PM Length of Stay (Days): 7 GMLOS: 8.2 * Home Care - Nishi Oswald RN - 06/07/2023 11:50 AM EDT Start PACC Note Home Health Referral Educated patient and on Home Care and services available. Patient offered choice of available HHC and agreeable to SN/PT services with [facility]. Care Types: [facility] Program Isolation Precautions: No active isolations Social Determinates of Health: Tobacco Use: Low Risk (06/02/2023) Patient History Smoking Tobacco Use: Never Smokeless Tobacco Use: Never Passive Exposure: Not on file Social History Substance and Sexual Activity Alcohol Use None Social History Substance and Sexual Activity Drug Use Not on file Does the patient have any financial resource strain? No Does the patient have any food insecurities? No Does the patient have any housing instabilities? No If any of the above is noted as yes - consider a CONTAINER FILLER evaluation once the patient returns home. START PATIENT REGISTRATION INFORMATION Order Information Order Signing Physician: Reta Peterson MD Service Ordered RN ?: Yes Service Ordered PT ?: Yes Service Ordered OT ?: No Service Ordered ST ?: No Service Ordered CONTAINER FILLER?:No Service Ordered TAR HEAT EXCHANGER CLEANER?: No Following Physician: Reta Peterson MD Following Physician Overseeing Physician: Reta Peterson MD (Required for Residents only) Agreeable to Follow? Yes Date/Time of Call 06/07/23 11:50 AM, Spoke with: Care Coordination Same Day SOC?: No Primary Care Physician: Kishan Ford MD Primary Care Physician Primary Care Physician Address: [address] [place] [id number] Visit Instructions: N/A Service Discharge Location Type: Home with Home Health Care Service Facility Name: N/A Service Floor Facility: N/A Service Room No: N/A Demographics Patient Last Name: Nakul Patient First Name: Chau Language/Communication Barrier: no Service Address: [address] [facility] Service City: [facility] ST: [place] Service ZIP: [address] Service (home) Other phone numbers: [phone] Emergency Contact: Extended Emergency Contact Information Primary Emergency Contact: Claudia Barron Mobile Relation: Daughter Preferred language: Lebanese Secondary Emergency Contact: Renu Barron Mobile Relation: Spouse Preferred language: Lebanese Admission Information Admit Date: 06/02/2023 Patient status at discharge: Inpatient Admitting Diagnosis: CAD in [place] artery [I25.10] Caregiver Information Caregiver First Name: na Caregiver Last Name: na Caregiver Relationship to Patient na Caregiver Phone Number: na Caregiver Notes: N/A Rate Solutions List No END PATIENT REGISTRATION INFORMATION Pt Home Health goal go home COVID Status 1. Do you have any upper respiratory symptoms (cough, SOB, Fever)? No 2. Have you been exposed to anyone with COVID-19 Virus? No Answer only if pending or positive for COVID-19? 1. Agreeable to wear PPE at each visit? No 2. Is the hospital supplying them with PPE upon Discharge? No Start PACC Summary General Report/ Additional Comments Wound care/dressing changes: -Surgical incisions leave open to air, cleanse daily with mild soap & warm water, pat dry, no lotion or powders on incision. -Surgical tape/dsg removal 10 days from surgery date Respiratory Care: -Cough and Deep Breath; Use incentive spirometry 10 times every hour while awake for 2 weeks. Additional Orders: -Sternal precautions (no lifting, pushing, pulling >10 lbs) for 6 weeks-use heart pillow -Vitals per home health protocol-call for fever and chills -Daily weights- call for weight gain: 2-3lbs in one day; 5lbs in 3 days. -Wear TEDs during day and off at night. Lab Work: -If Diabetic: blood glucose testing as directed by PCP/Mechanical Service Specialist -For recent heart surgery if patient discharged on Coumadin verify need for INR draw on visit. Activity/Weight Bearing: -Up with assistance: up in chair for all meals, ambulate 3-4 times a day -Stretching exercises per PT discharge instructions Discharge Date: pending Referral Source-PACC: (Hospital/Unit): [facility] / T1-/T1 A End PACC Note * Care Coordination - Afia Arce RN - 06/07/2023 9:02 AM EDT Images from the original note were not included. Care Management Progress Note Patient remains in CTV ICU now s/p CABG x 4 and LLL wedge resection POD # 1. Extubated overnight weaned to 6L NC, requiring Epi, in NSR on tele, chest tube to water seal, insulin per endocrine, and PT/OT evals pending. [facility] Discharge Milestones and Delays Expected Date/Time: 06/13/[address] discharge order Complete med reconciliation Case mgmt discharge readiness Clinical Stability Diagnsotic Workup Expected Discharge History Expected Date/Time Set By Reviewed At 06/13/2023 Afia Arce RN 06/07/2023 9:02 AM 06/09/2023 Erica Kay, CHRISTIANO - DERRICK BOAT CAPTAIN 06/02/2023 2:17 PM Length of Stay (Days): 5 GMLOS: 1.8 * Op Note - Reta Peterson MD - 06/06/2023 6:55 AM EDT DATE OF PROCEDURE: 06/06/2023 PREOPERATIVE DIAGNOSIS: Coronary artery disease Mild to moderate aortic stenosis Left lower lobe nodule POSTOPERATIVE DIAGNOSIS: Coronary artery disease Mild to moderate aortic stenosis Left lower lobe nodule Pericardial cyst PROCEDURE: 1. Coronary artery bypass grafting x 4 - Left internal mammary artery to the left anterior descending - Saphenous vein graft to the ramus - Saphenous vein graft to the right posterior descending artery - Saphenous vein graft to the diagonal 1 2. Endoscopic vein harvest, left lower extremity 3. Left lower lobe wedge 4. Pericardial cyst resection SURGEON: Reta Peterson MD BOARD FINISHER: Mayda Jeffers SA COMPLICATIONS: None intra-op CONDITION: Stable DESCRIPTION OF PROCEDURE: The patient was prepped and draped in the appropriate manner, having undergone general endotrachealanesthetic in addition to arterial line, and mccord catheter placement. An antibiotic and a beta silvano were administered pre-operatively and documented. Incision and conduit harvest/preparation: A midline sternotomy incision was utilized in standard fashion. The sternum was divided with the oscillating saw. The left internal mammary artery was taken down with clips and bovie cauterization. Papaverine was used. The left lower extremity saphenous vein was harvested via the endoscopic approach. The patient was fully heparinized prior to dividing andprepping the mammary. Cannulation and cardiopulmonary bypass: After cannulation, the patient was placed on cardiopulmonary bypass support. Ascending aortic cross-clamp was applied. Antegrade cardioplegia (microplegia) wasdelivered till the heart was arrested in diastole. Cardioplegia was re-administered every 20 minutes while the ascending aorta was cross clamped. Aortic canula: 22 Fr metal tip cannula in distal ascending aorta Venous canula: 29/29 Fr triple stage cannula via right atrial appendage Cardioplegia: Antegrade via cannula in the mid ascending aorta Coronary artery bypass: Bypasses were performed using the respective conduits listed above to the [place] arterial targets with 7-0 Prolene distally and 6-0 Prolene proximally to the ascending aorta. The left internal mammary artery was anastomosed to the LAD with 7-0 Prolene. Left lower lobe wedge: The lung nodule was identified in the left lower lobe. It was resected usingseveral firings of blue staple loads. It was passed of to pathology. Pericardial cyst resection: A pericardial cyst was identified at the base of the heart. A silk tie was secured at the base and the cyst was divided and passed off to pathology. CPB wean and decannulation: The patient was given a dose of warm blood cardioplegia. Valsalva breaths were mechanically administered and the aorta was unclamped. Pacing wire was placed. The patient was rewarmed and weaned from cardiopulmonary bypass support without difficulty. Protamine was administered and cannulas were removed without difficulty. Two 24 Fr hipolito drains were placed, one in the left pleural space and one in the mediastinum. Closure: Hemostasis was achieved. The sternum and incision were closed with sternal wires, running 0, 2-0 and 4-0 stitches. Dressings applied, and the patient was transferred to the cardiovascular intensive care unit in stable condition. Cardiopulmonary bypass time: 97 minutes Cross clamp time: 77 minutes Intra-op JAYCE: Mild to moderate aortic stenosis. Normal LV function. Reta Peterson MD * Care Coordination - Afia Arce RN - 06/05/2023 1:45 PM EDT Care Managment Initial Assessment Date: 06/05/2023 Patient Name: Chau Barron : 1940 Patient Information Source of Information: Patient Cognition/Language: WFL - Within Functional Limits Permission given to speak with patient sales representative consultant/caregiver as indicated: Confirmation of Payer with patient/family: Yes Payer Name: Medicare and Ronan : No Confirmation of Primary Care Physician: Confirmed PCP Name: Dr. Ford Seen in last 2 years?: Yes Primary Caregiver: Self If assistance needed, confirmed caregiver ready, willing and able to care for patient at discharge: Confirmed with: Living Arrangements Current Residence: House Number of Floors 3 Number of Entry Steps: 2 Bed/Bath Levels: Both second floor Facility: Facility Name: Plan to Return: Lives with: Spouse/significant other, Children Support Systems: Spouse/significant other, Children Activities of Daily Living Ambulation: Independent Bathing/Dressing: Independent Elimination/Continence/Toileting: Independent Feeding: Independent Who Assists with Activities of Daily Living: Instrumental Activities of Daily Living Prescription Coverage: Yes Pharmacy Used: [facility] Medication Management: Independent Transportation/Shopping: Independent Transportation Mode: Car Needs Assistance with Transportation at Discharge: No Meal Preparation: Independent Laundry/Cleaning: Independent Finances/Bill Paying: Independent Communication: Independent Types of Care Services/Equipment Utilized Care Services: Dialysis Type: Durable Medical Equipment: Patient's Goal/Discharge Plan Patient expects to be discharged to: home Discharge Planning Actions: Continue to follow Patient's Choice Rights and [employer] and Collaborative Relationships Disclosed as Indicated for Post-Acute Care: Interdisciplinary Team Engagement: PT/OT, Home Health Care Social Work Referral for: Additional Information: Patient admitted to CTV ICU with multivessel CAD. CTS consulted, plan for CABG. Spoke with patient at bedside, introduced self and role. Patient from home with and daughter, is independent, has PCP and prescription coverage, will have a ride home and BERGER following for postop HHC. Afia Arce RN * Care Coordination - CHRISTIANO Martinez CNP - 06/04/2023 9:13 AM EDT Images from the original note were not included. Cardiothoracic Surgery Interval Note PATIENT NAME: Chau Barron : 1940 (82 y.o.) TODAY'S DATE: 06/04/2023 Interval History: CT reviewed with surgeon. Will plan possible wedge resection at time of CABG for 10mm lung nodule. documented in this [facility]04-30-2024 NoteCare Management Progress Note Patient remains in CTV ICU s/p CABG x 4 POD # 4. Plan to discharge home, spoke with patient and at length yesterday, aware AB will set up home care. No further DME or discharge needs expressed. [facility] notified of dc. Discharge Milestones and Delays Expected Date/Time: 06/13/2023 Disposition: Home or Self Care Transport status: No current request Discharge Milestones Completed Place discharge order Complete med reconciliation Case mgmt discharge readiness Expected Discharge History Expected Date/Time Set By Reviewed At 06/13/2023 CHRISTIANO Rosario CNP 06/13/2023 12:08 PM 06/13/2023 Afia Arce RN 06/12/2023 10:08 AM 06/13/2023 Afia Arce RN 06/09/2023 10:31 AM 06/13/2023 Afia Arce RN 06/07/2023 9:02 AM 06/09/2023 CHRISTIANO Rosario CNP 06/02/2023 2:17 PM Length of Stay (Days): 11 GMLOS: 8.2 [facility]04-30-2024 Hospital Discharge instructions* Discharge Instructions* CHRISTIANO Rosario CNP - 06/13/2023 12:00 PM EDT Images from the original note were not included. [facility] Group: Cardiothoracic Surgery [address] [place] [address] [address] [facility] #[phone] Notify us if the following occur - Increased tenderness, redness, or swelling of your incisions. - Any drainage from the chest incision (clear or pink drainage from the leg incision or chest tube site is common). - Angina symptoms like those you had before surgery - Sharp pain in chest, neck or shoulder that is worse when taking a deep breath - Persistent fever greater than 100 degrees F or 38 degrees C - Flu-like symptoms-chills, aches, fever, increased fatigue - Heart rate faster than 150 beats/minute with shortness of breath or new irregular heart rate. - Any unusual bleeding - Shortness of breath not relieved by rest - Weight gain of three pounds in one day or five pounds over one week Activity Instructions - Sternal Precautions for 6 weeks - Do not lift, push, or pull anything heavier than 10 pounds for 6 weeks (a gallon of milk weighs 8pounds). - Do not drive until you have been given permission by your surgeon/provider and until you are off narcotic/opioid pain medication - It is ok to sleep on your side if you prop pillows to support your back. Do not sleep on your stomach. - Walk at least 4 times a day, start with 5 minute intervals, increase minutes walked each day. Do not walk on a treadmill - Balance rest and activity during your recovery - Use the stairs, but go slowly, Use the handrail for balance but do not pull yourself up with yourarms. - Shower daily. Do not take your heart medication right before you shower. You could become lightheaded from your blood pressure and heart medication. Always have someone nearby to assist you. - Do not take a tub bath or use a hot tub until all incision are completely healed (no scab). - Put purvi hose on in AM and remove at bedtime. Elevate your feet above level of heart when you are sitting. - Cough and deep breathe and use incentive spirometer every hour (10x/hour while awake for two weeks). Other Instructions - Weigh yourself daily at the same time (after you urinate but before breakfast) - Keep a record of your daily weight, and bring to your first post op office visit - Take all medications as prescribed. Bring all your medication bottles to any follow up office visit Incision Care - Wash your sternal incision with anti-bacterial soap and warm water. Pat dry, and leave open to air. Do not use any lotions, or powders, or ointments. * Discharge Instr - SMITA* Nishi Oswald RN - 06/13/2023 12:14 PM EDT Continuity of Care Form Patient Name: Chau Barron : 1940 Admit date: 06/02/2023 Discharge date: Code Status Order: Full Code Advance Directives: N Admitting Physician: Reta Peterson MD PCP: Kishan Ford MD Discharging Nurse: Discharging Hospital Unit/Room#: T1-116/T1116 A Discharging Unit Phone Number: Emergency Contact: Extended Emergency Contact Information Primary Emergency Contact: Claudia Barron Mobile Relation: Daughter Preferred language: Lebanese Secondary Emergency Contact: Renu Barron Mobile Relation: Spouse Preferred language: Lebanese Past Surgical History: Past Surgical History: Procedure Laterality Date DENTAL IMPLANT Immunization History: Immunization History Administered Date(s) Administered Covid-19, Moderna Bivalent Booster, (Age 6y-11y) 12/07/2021 Moderna SARS-CoV-2 Vaccination 03/26/2020, 04/22/2020, 01/08/2021 Active Problems: Medical Problems Problem List * (Principal) CAD in [place] artery Isolation/Infection: No active isolations No active infections Nurse Assessment: Last Vital Signs: BP 130/66 Pulse 70 Temp 36.7 C (98.1 F) (Temporal) Resp 16 Ht 1.905 m (6'3) Wt 123 kg (272 lb) SpO2 95% BMI 34.00 kg/m Last documented pain score (0-10 scale): Last Weight: Wt Readings from Last 1 Encounters: 06/13/23 123 kg (272 lb) Mental Status: {SMITA Patient Mental Status:81258} IV Access: {SMITA IV Access:08147} Nursing Mobility/ADLs: Walking {RADHA ADL:04260::Independent} Transfer {RADHA ADL:08225::Independent} Bathing {RADHA ADL:63114::Independent} Dressing {RADHA ADL:37815::Independent} Toileting {RADHA ADL:99255::Independent} Feeding {RADHA ADL:44186::Independent} Senior Health Physics Technician {RADHA ADL:91576::Independent} Med Delivery {yes/no:69294} Wound Care Documentation and Therapy: Wound/Incision 06/06/23 Incision Sternum (Active) Site Assessment Clean;Dry;Intact 06/13/23 0400 Odor None 06/13/23 0400 Drainage Amount None 06/13/23 0400 Treatments Site care 06/11/23 1600 Primary Dressing Liquid Adhesive (Dermabond) 06/13/23 0400 Dressing Status Clean, dry & intact 06/13/23 0400 Number of days: 7 Wound/Incision 06/06/23 Incision Calf Anterior;Left (Active) Site Assessment Clean;Dry;Intact 06/13/23 0400 Odor None 06/13/23 0400 Drainage Amount None 06/13/23 0400 Treatments Site care 06/11/23 1600 Primary Dressing Liquid Adhesive (Dermabond) 06/13/23 0400 Dressing Status Clean, dry & intact 06/13/23 0400 Number of days: 7 Elimination: Continence: Bowel: {yes/no:36944} Bladder: {yes/no:56510} Urinary Catheter: {SMITA Urinary Catheter:84513} Colostomy/Ileostomy/Ileal Conduit: {YES / NO:70276} Date of Last BM: Intake/Output Summary (Last 24 hours) at 06/13/2023 1214 Last data filed at 06/12/2023 1625 Gross per 24 hour Intake -- Output 400 ml Net -400 ml I/O last 3 completed shifts: In: 750 (6.1 mL/kg) [P.O.:750] Out: 3100 (25.1 mL/kg) [Urine:3100 (0.7 mL/kg/hr)] Weight: 123.4 kg Safety Concerns: {SMITA Safety Concerns:93055} Impairments/Disabilities: {SMITA Impairments/Disabilities:11172} Nutrition Therapy: Current Nutrition Therapy: {SMITA Diet List:36566} Routes of Feeding: {routes of feedin} Liquids: {liquid consistency:01610} Daily Fluid Restriction: {daily fluid restriction:73857} Last Modified Barium Swallow with Video (Video Swallowing Test): {done not done:83340} Treatments at the Time of Hospital Discharge: Respiratory Treatments: Oxygen Therapy: {Therapy; copd oxygen:24418} Ventilator: {SMITA Ventilator:09656} Rehab Therapies: {GEN THERAPY DISCIPLINE SCAL:2108730} Weight Bearing Status/Restrictions: {POD WEIGHT BEARIN} Other Medical Equipment (for information only, NOT a DME order): {Assistive Devices DME:82520} Other Treatments: Patient's personal belongings (please select all that are sent with patient): {SMITA Patient Belongings:88047} RN SIGNATURE: {E-signature:89979} CASE MANAGEMENT/SOCIAL WORK SECTION Inpatient Status Date: Readmission Risk Assessment Score: @READMISSIONRISKDETAILS@ Discharging to [facility]/ Agency [facility] [place] [address] Dialysis Facility (if applicable) Name: Address: Dialysis Schedule: Phone: Fax: Men'S Swim Coach/Neuro Urologist signature: {E-signature:06142} PHYSICIAN SECTION Prognosis: {Rehab Prognosis:89613} Condition at Discharge: {Patient Condition:62570} Rehab Potential (if transferring to Rehab): {Rehab Prognosis:32532} Recommended Labs or Other Treatments After Discharge: Physician Certification: I certify the above information and transfer of Chau Barron is necessaryfor the continuing treatment of the diagnosis listed and that he requires {SMITA Level of Care:98052}for {greater less than:73907} 30 days. Update Admission H&P: {SMITA Changes in H&P:20396} PHYSICIAN SIGNATURE: {E-signature:59483} documented in this [facility]04-29-2024 NoteCare Management Progress Note Patient remains in CTV ICU s/p CABG x 4 and LLL wedge resection POD # 6. VSS, on RA, in NSR on tele, continuing lasix BID, +BM, and PT recommending home with [facility]. [facility] Discharge Milestones and Delays Expected Date/Time: 06/13/[address] discharge order Complete med reconciliation Case mgmt discharge readiness Clinical Stability Diagnsotic Workup Expected Discharge History Expected Date/Time Set By Reviewed At 06/13/2023 Afia Arce RN 06/12/2023 10:08 AM 06/13/2023 Afia Arce RN 06/09/2023 10:31 AM 06/13/2023 Afia Arce RN 06/07/2023 9:02 AM 06/09/2023 Erica Kay, PRODUCT MANAGER [employer] - [employer] 06/02/2023 2:17 PM Length of Stay (Days): 10 GMLOS: 8.2 [facility]04-29-2024 NoteCardiothoracic Surgery/CCM Progress Note PATIENT NAME: Chau Barron DATE: 06/12/23 HPI: 82 y.o. with pmHx of HLD, HTN, T2DM who was transffered from outside hospital for CABG consideration. Per paper chart brought with the patient, he developed midsternal chest pressure, coughing, burping, and sweating while riding his lawnmower. By the time the patient arrived to the ED - chest pressure had slightly improved. Cardiac enzymes were elevated and he was admitted as NSTEMI and Cardiology was consulted. Cardiac cath was then preformed which showed: Distal LM 60-70% stenosis left main bifurcating into LAD, ramus and left circumflex. LAD with ostial and proximal ~70%. Distal LAD around 95%, ostial LCx 70%, RCA large dominant , calcified with proximal RCA thrombus: JIMMY-3 flow in the RCA. He was transferred to [facility] for CABG consideration. Full workup completed at [facility], CT chest revealed lung nodule. Surgery planned for 06/06/23. Surgery/Procedure: 06/06/23: Dr. Peterson- CABGx 4 (HERNANDEZ-LAD, SVG-PDA, SVG- RAMUS, SVG-DIAG1), LLE EVH, LLL wedge resection, pericardial cyst resection Interval History: 06/12/23, POD# 06: Afebrile, NSR on tele, BP stable, on RA. Sitting up in chair this AM, pain tolerable, feels he is progressing with therapy, walked on small staircase in unit over weekend. Hoping to be able to go home, nervous about helping him. Review of Systems Constitutional: Negative for appetite change, chills, diaphoresis and fever. Respiratory: Negative for cough, shortness of breath and wheezing. Cardiovascular: Negative for palpitations and leg swelling. Gastrointestinal: Negative for abdominal distention, abdominal pain, constipation, diarrhea, nausea and vomiting. Neurological: Negative for dizziness and light-headedness. Objective: Last BM Date: 06/12/23 Vitals: BP: 128/84, MAP (mmHg): 97, BP Method: Automatic Heart Rate: 77 Resp: 20 Temp: 36.6 ?C (97.9 ?F), Temp Source: Temporal BMI (Calculated): 34.44 BMP: Recent Labs 06/10/23 0433 06/11/23 0110 06/12/23 0010 NA 134* 136 135 K 4.2 3.7 3.9 CL 102 102 101 CO2 25 25 21* BUN 42* 45* 42* CREATININE 1.25 1.24 1.11 CALCIUM 8.5 8.4 8.8 MG 2.4* 2.3 2.2 CBC: Recent Labs 06/10/23 0433 06/11/23 0110 06/12/23 0010 WBC 13.1* 11.6* 11.4* HGB 9.6* 9.3* 9.2* HCT 28.6* 27.7* 27.9* PLT 187 208 241 MCV 92.6 93.0 93.3 RDW 14.1 13.9 13.8 INR: No results for input(s): INR in the last 72 hours. Physical Exam Vitals reviewed. Constitutional: General: He is not in acute distress. Appearance: He is not ill-appearing or diaphoretic. Cardiovascular: Rate and Rhythm: Normal rate and regular rhythm. Pulses: Normal pulses. Heart sounds: No murmur heard. Pulmonary: Effort: Pulmonary effort is normal. Breath sounds: No wheezing, rhonchi or rales. Abdominal: General: There is no distension. Palpations: Abdomen is soft. Tenderness: There is no abdominal tenderness. Comments: Chest tube dressing dry and intact. Musculoskeletal: General: No swelling. Skin: General: Skin is warm and dry. Capillary Refill: Capillary refill takes less than 2 seconds. Findings: Bruising present. Comments: MSI well approximated. No redness, warmth or drainage noted. Neurological: General: No focal deficit present. Mental Status: He is alert. Assessment: MVCAD/NSTEMI s/p CABG LLL nodule (10mm) HTN T2DM HLD Post operative Pulm Management: Normal Post-operative Course Post-operative Atrial Fibrillation: []Yes [x] No Acute blood loss anemia/consumptive thrombocytopenia Plan: Continue aspirin, statin and BB. -Will titrate up on BB if BP allows. Lasix BID for today, will switch to daily tomorrow. Encourage increased activity, progressive mobility. Work on steps with nursing and PT. DC planning today. Encourage PO intake. Bowel regimen. +BM. Endocrine signed off- resume home regimen at discharge if GFR > 60, consider SGLT2 as OP. PT/OT: Home with Home Health PT, Home with assist PRN (06/10/23) Pulmonary hygiene: IS and Acapella GI prophy: PO protonix DVT prophy:TEDs, SCDs, and Heparin SubQ TCC/Discharge Planning: Plan for home this week, hope in the next couple days. Central Line: []Yes [x] No Arterial Line: []Yes [x] No Mccord: []Yes [x] No Restraints: []Yes [x] No Patient discussed and plan of day developed from multidisciplinary rounds between Cardiothoracic Surgery (Cardiothoracic Surgeon, BELKIS) and Critical Care Attending Cardiac Core Medications: ASA, Statin, and BB EF: 55% (06/06/23) Blood Conservation: None noted in post-operative period Supervisor Properties: [facility] [place] [id number] NoteCare Management Progress Note Patient remains in CTV ICU s/p CBAG x 4 and LLL wedge resection POD # 3. Remains on 6L NC, weaned off Levo-VSS, in NSR on tele, chest tube to water seal-potential removal, insulin per endocrine, and PT recommending IPR currently and OT recommending home with assist. DCP-home with [facility] following for home care Discharge Milestones and Delays Expected Date/Time: 06/13/[address] discharge order Complete med reconciliation Case mgmt discharge readiness Clinical Stability Diagnsotic Workup Expected Discharge History Expected Date/Time Set By Reviewed At 06/13/2023 Afia Arce RN 06/09/2023 10:31 AM 06/13/2023 Afia Arce RN 06/07/2023 9:02 AM 06/09/2023 CHRISTIANO Rosario CNP 06/02/2023 2:17 PM Length of Stay (Days): 7 GMLOS: 8.2 [facility] [id number] NoteOCCUPATIONAL THERAPY [facility] Initial Evaluation Name/MRN: Chau Barron ([id number]) Evaluation Date: 06/08/2023 Date of : 1940 Admission Date: 06/02/2023 5:32 PM Age: 82 y.o. Room/Bed: T1-116/T1-116 A Discharge Recommendation: Home with assist PRN Assessment IMPRESSION: Pt presented with CAD now s/p CABG x4 and LLL wedge resection. Pt previously IND with ADLs, IADLs and mobility. Pt currently able to reach B socks via figure 4, stand up with minimal assistance, unable to attempt further mobility d/t high flow NC. Pt will likely progress to home, already owns a shower stool. Performance Deficits /Impairments: Decreased Functional Mobility, Decreased ADL status, Decreased ROM, Decreased Endurance, Decreased Balance, and Decreased High Level IADLs Prognosis: Good Decision Making: Medium Complexity Subjective Pt seated in recliner, very pleasant and agreeable to OT eval. Pain: 0-10 pain scale: 1/10 Location: chest/incision Past Medical History: Past Medical History: Diagnosis Date Coronary artery disease Diabetes mellitus (HCC) Hypercholesteremia Hypertension Past Surgical History: Past Surgical History: Procedure Laterality Date DENTAL IMPLANT Admission Diagnosis: Patient Active Problem List Diagnosis Date Noted CAD in [place] artery 06/02/2023 Medical Precautions: No active isolations Proper PPE donned/doffed in accordance with facility standards. Fall Risk: Oswald Fall Risk Score: 45 (High Risk) Precautions/Restrictions: Sternal Precautions: No Pushing, No Pulling, No Lifting Greater Than 10 lbs Family/Caregiver Present: none Overall Cognitive Status: WNL Overall Orientation Status: Oriented x4 Social/Functional History Patient admitted from home. Lives With: Spouse Type of Home: single family home Home Layout: Multi-Level Home (3 levels plus basement, bedroom on 2nd floor, office on the 3rd floor) Home Access: Stairs to Enter with Rails (# of stairs: 3) Bathroom Shower/Tub: tub shower (owns a stool but has not been using) Toilet: Standard Home Equipment: shower stool Homemaking Responsibilities: Independent Receives Help From: Spouse Active Pop Singer: Yes Prior Level of Function ADL Assistance: Independent Ambulation Assistance: Independent Transfer Assistance: Independent Objective ADLs LE Dressing: able to achieve figure 4 to adjust B socks Upper Extremity Assessment AROM: WFL PROM: Not assessed this session Strength: WNL Vision: wears glasses at all times and and are NOT being used during the eval Hearing: normal Bed Mobility Up in recliner Transfers/Functional Mobility Sit to stand: Min Assist Stand to sit: Min Assist Standing balance: Contact Guard Only able to tolerate standing for ~ 30 seconds before requesting to sit Device(s) used: none AM-PAC AM-PAC Inpatient Daily Activity Raw Score: 19 ADL Inpatient CMS G-Code Modifier: CK Plan Pt would benefit from skilled acute OT services to address Balance Training, Functional Mobility Training, Endurance Training, Self-Care/ADL Training, and Home Management Training. Frequency: 4x/week for 4 weeks Barriers: Medical complications Prognosis: excellent Safety/Education Safety Safety Devices in place: All fall risk precautions in place, call light within reach, left in chair, nurse notified, and no alarms engaged upon entry Restraints: N/A Education Education Given To: patient Education Provided: OT Role, Plan of Care, Precautions, ADL Adaptive Strategies, and Transfer Training Education Method: Verbal Barriers to Learning: None Education Outcome: Verbalized Understanding and Continued Education Needed Goals Patient Stated Goal: home Encounter Problems Encounter Problems (Active) Balance Patient will maintain static standing balance for 3 minutes with modified independence in order to demonstrate decreased risk of falling. Start: 06/08/23 Expected End: 07/06/23 Dressing Upper Extremities Patient will complete upper body dressing independently Start: 06/08/23 Expected End: 07/06/23 Dressings Lower Extremities Patient will dress lower body with mod I Start: 06/08/23 Expected End: 07/06/23 Mobility Patient will demonstrate functional ambulation with mod I Start: 06/08/23 Expected End: 07/06/23 Toileting Patient will complete toileting tasks at standard toilet with modified independence. Start: 06/08/23 Expected End: 07/06/23 Transfers Patient will complete functional transfer with least restrictive device with modified independence in order to prepare for ambulation. Start: 06/08/23 Expected End: 07/06/23 Patient will perform bed mobility with independence in order to improve independence and prepare for out of bed mobility. Start: 06/08/23 Expected End: 07/06/23 Therapy Time Individual Co-treatment Time In 951 Time Out 1013 Minutes 21 Aixa Mariscal OT Patient's Occupational Therapy (more content not included)...[facility] [id number] NotePHYSICAL THERAPY [facility] Initial Evaluation Name/MRN: Chau Barron ([id number]) Evaluation Date: 06/07/2023 Date of : 1940 Admission Date: 06/02/2023 5:32 PM Age: 82 y.o. Room/Bed: T1-116/T1-116 A Discharge Recommendation: (Currently at IP REhab level, but likely will improve and be able to return home pending progress.) Equipment Needed: No Assessment IMPRESSION: Chau Barron was admitted on with CAD and is now s/p CABG x 4, LLL wedge resection and pericardial cyst resection. He has a CT to water seal. He was up in the chair upon entry, and his buttocks needed a break from the chair. We ambulated him with assist of 1, one for the IV's, and a chair follow as well. He did have a syncopal episode this am when he got up. He is moving slowly, and not as confident as he was this am, but moving nonetheless. He ambulated 25', then turned around and returned 12 ' to the bed, and sat down with mod assist. He is following sternal precautions with reminders to do so. His was visiting during this evaluation. His O2 sats did drop during ambulation, and the nurse got Respiratory therapy to give him a treatment. He was made comfortable in the bed with pillows and positioning. Diagnosis: s/p CABG and pericardial cyst resection. Prognosis: good Performance Deficits /Impairments: Increased Pain, Decreased Functional Mobility, Decreased Strength, Decreased Endurance, Decreased Balance, Decreased High Level IADLs, Decreased Coordination, and Decreased Posture Decision Making: High Complexity Subjective Patient was up in the chair, wanted to get back to the bed. He was willing to ambulate before getting to the bed. Pain: RN managing pain. Past Medical History: Past Medical History: Diagnosis Date Coronary artery disease Diabetes mellitus (HCC) Hypercholesteremia Hypertension Past Surgical History: Past Surgical History: Procedure Laterality Date DENTAL IMPLANT Admission Diagnosis: Patient Active Problem List Diagnosis Date Noted CAD in [place] artery 06/02/2023 Medical Precautions: No active isolations Proper PPE donned/doffed in accordance with facility standards. Fall Risk: Oswald Fall Risk Score: 45 (High Risk) Precautions/Restrictions: Sternal Precautions: No Pushing, No Pulling, No Lifting Greater Than 10 lbs Pacemaker Precautions Other Position/Activity Restriction: IV's, CT's, O2, mccord catheter, tele wires Lines/Drains/Airways: Family/Caregiver Present: spouse Overall Cognitive Status: WFL Overall Orientation Status: Oriented x4 Vision: wears glasses at all times and and are being used during the eval Hearing: normal Social/Functional History Patient admitted from home. Lives With: Spouse Type of Home: single family home Home Layout: Multi-Level Home Home Access: Stairs to Enter with Rails (# of stairs: 3) Bathroom Shower/Tub: Toilet: Standard Home Equipment: [facility] [facility] Homemaking Responsibilities: Independent Receives Help From: Spouse Active Pop Singer: Yes Prior Level of Function ADL Assistance: Independent Ambulation Assistance: Independent Transfer Assistance: Independent Objective Lower Extremity Assessment AROM: WFL PROM: WFL Strength: Exceptions: grossly 4/5 bilaterally Bed Mobility: Sit to supine: Mod Assist Rolling to right: Min Assist Scooting: Max Assist, x2 Person Assist Transfers Sit to stand: Mod Assist, x2 Person Assist Stand to sit: Mod Assist Bed to chair: Mod Assist, x2 Person Assist Ambulation Ambulation 1 Assistive device(s) used: Tracey Assist level: max Distance (ft): 25', then 12' Quality of gait: antalgic, shuffling, uneven step length, slow marcie, postural sway Coordination: Impaired: he was hesitant, and also had a hard time lifting his right foot to clear the floor to advance it. Outcome Measures AM-PAC How much HELP from another person do you currently need Turning from your back to your side while in a flat bed without using bedrails?: A Lot Moving from lying on your back to sitting on the side of a flat bed without using bedrails?: A Lot Moving to and from a bed to a chair (including a wheelchair)?: A Lot Standing up from a chair using your arms (wheelchair or bedside chair)?: A Lot Walking in a hospital room?: A Lot Stair climbing assessed?: No AM-PAC Inpatient Mobility Raw Score (No Stairs) : 10 JH-HLM -HL Score: Walked 25 ft or more (i.e. walked outside of room) Plan Pt would benefit from skilled acute PT services to address Strengthening, ROM, Balance Training, Functional Mobility Training, Endurance Training, Gait Training, Stair Training, Equipment Evaluation/Education, and Positioning. Frequency: 5x/week for 3 weeks Barriers: Pain and Decreased endurance Safety/Education Safety Safety Devices in place: All fall risk precautions in place, call light within reach, left in bed, patient at risk for falls, nurse notified, and n (more content not included)...[facility]04-24-2024 NoteNutrition Assessment Type and Reason for Visit: Initial, Consult, Patient Education (s/p open heart surgery) Nutrition Recommendations/Plan: Continue diet as ordered Per MNT protocol, will order Ensure HP BID to promote PO intake and post-op healing Provided heart healthy diet handout with [facility] RD phone number for reference. Will monitor pt's desire for diet education. Noted advanced age RD will monitor PO intake, weight, overall nutrition status and follow weekly Malnutrition Assessment: Malnutrition Status: At risk for malnutrition (Comment) Findings of the 6 clinical characteristics of malnutrition: Energy Intake: Mild decrease in energy intake (Comment) Weight Loss: No significant weight loss Body Fat Loss: No significant body fat loss Muscle Mass Loss: No significant muscle mass loss Fluid Accumulation: Mild Extremities Media Planner / Buyer Strength: Not Performed Nutrition Assessment: Pt with PMH including HLD, HTN, T2DM transffered from where he presented 06/02/23 with chest pressure, coughing, burping, and 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 He was found with elevetad cardiac enzymes and admitted with NSTEMI. Cardiology was consulted. Heart cath showed MV CAD and he wsa transferred to [facility] for CABG consideration. Full workup completed at [facility], CT chest revealed lung nodule. On 06/05, pt underwent CABG x4, LLL wedge resection, pericardial cyst resection. He is extubated with diet ordered. Pt reports he has no appetite, breakfast tray is observed with minimal, if any, consumed. Prior to admission, pt states he fasts from evening to the next afternoon, eats two meals daily, reports his doctor is aware of his intermittent fasting eating pattern and denies any hx of hypoglycemia. Pt does not use ONS, however is agreeable to trial of ONS here. Pt is not sure if he is interested in diet education. RD provided heart healthy diet handout with [facility] RD phone number. Estimated Daily Nutrient Needs: Energy Requirements Based On: Kcal/kg Weight Used for Energy Requirements: [place] (25-28 kcal/kg) Weight for Energy Calculation (kg): 88.9 kg Total Energy Requirements (kcals/day): 9056-2907 Weight Used for Protein Requirements: [place] (1.2-1.5 g/kg) Weight in Kg Used for Protein Requirements: 88.9 kg Estimated Total Protein (g/day): 107-133 Estimated Daily Total Fluid (ml/day): per MD Nutrition Related Findings: Nutrition History: Independent of feeding. Lives with: Spouse/significant other, Children Room Service Room Service: Selective GI symptoms: Decreased appetite. Guille Scale Score: 18 .Wound Type: Surgical Incision Net IO Since Admission: 7,399.98 mL [06/07/23 1232] Edema: RUE Edema: Trace, LUE Edema: Trace, RLE Edema: Non-pitting, LLE Edema: Non-pitting Bowel Sounds (All Quadrants): Hypoactive Abdomen Inspection: Soft, Rounded Last BM Date: 06/01/23 Labs and meds reviewed: acetaminophen, 1,000 mg, Oral, q8h aspirin, 81 mg, Oral, Daily atorvastatin, 80 mg, Oral, Daily ceFAZolin, 2,000 mg, IntraVENous, q8h chlorhexidine, 15 mL, Mouth/Throat, BID heparin, 5,000 Units, SubCUTAneous, BID Lidocaine, 1 patch, Topical, Daily mupirocin, , Nasal, BID [START ON 06/08/2023] pantoprazole, 40 mg, Oral, qAM AC polyethylene glycol (PEG) 3350, 17 g, Oral, Daily senna-docusate sodium, 2 tablet, Oral, Nightly sodium chloride 0.9%, 10 mL, IntraVENous, 2 times per day sodium chloride 0.9%, 5-40 mL, IntraCATHeter, q8h EPINEPHrine, 0.01-0.2 mcg/kg/min, Last Rate: 0.04 mcg/kg/min (06/07/23 1215) insulin regular, 1-50 Units/hr, Last Rate: 2.5 Units/hr (06/07/23 1230) norepinephrine, 0.01-0.2 mcg/kg/min sodium chloride, 20 mL/hr, Last Rate: 20 mL/hr (06/06/23 1230) BMP: Recent Labs 06/05/23 0022 06/06/23 1112 06/07/23 0015 06/07/23 0708 NA 138 138 139 -- K 4.0 4.1 3.4* 3.6 CL 106 109* 106 -- CO2 24 21* 20* -- BUN 19 18 20 -- CREATININE 0.93 0.82 1.11 -- GLUCOSE 126* 156* 164* -- CALCIUM 9.6 9.7 8.8 -- MG 2.0 3.7* 2.6* -- PHOS -- 2.9 -- -- Recent Labs 06/07/23 0708 06/07/23 0805 06/07/23 0910 06/07/23 1005 06/07/23 1104 06/07/23 1229 POCGLU 170* 164* 201* 192* 186* 175* Lab Results Component Value Date HGBA1C 7.5 (H) 06/05/2023 Lab Results Component Value Date EFBP 60 06/04/2023 Current Nutrition Therapies: Adult diet Regular; 5 carb choices (75 gm/meal) Current Oral Intake Average Meal Intake: 1-25% Average Supplements Intake: None Ordered Anthropometric Measures: Height: 190.5 cm (6' 3) Current Body Weight: 124 kg (274 lb 4 oz) (06/06) Admission Body Weight: 124 kg (274 lb 7.6 oz) (bedcale 06/01) [place] Body Weight (lbs) (Calculated): 196 lbs [place] Body Weight (Kg) (Calculated): 89 kg % [place] Body Weight (Calculated): 139.9 % BMI (kg/m2) (Calculated): 34.3 BMI Categories: Obese Class 1 (BMI 30.0-34.9) Wt Readings from Last 10 Encounters: 06/07/23 124 kg (274 lb 4 oz) Nutrition Diagnosis: Increased nutrient needs relat (more content not included)...[facility]04-24-2024 Consult note* Zuri Foster, DOROTHY - 06/07/2023 12:32 PM EDT Associated Order(s): IP CONSULT TO DIETITIAN Nutrition Assessment Type and Reason for Visit: Initial, Consult, Patient Education (s/p open heart surgery) Nutrition Recommendations/Plan: Continue diet as ordered Per MNT protocol, will order Ensure HP BID to promote PO intake and post-op healing Provided heart healthy diet handout with [facility] RD phone number for reference. Will monitor pt's desire for diet education. Noted advanced age RD will monitor PO intake, weight, overall nutrition status and follow weekly Malnutrition Assessment: Malnutrition Status: At risk for malnutrition (Comment) Findings of the 6 clinical characteristics of malnutrition: Energy Intake: Mild decrease in energy intake (Comment) Weight Loss: No significant weight loss Body Fat Loss: No significant body fat loss Muscle Mass Loss: No significant muscle mass loss Fluid Accumulation: Mild Extremities Media Planner / Buyer Strength: Not Performed Nutrition Assessment: Pt with PMH including HLD, HTN, T2DM transffered from where he presented 06/02/23 with chest pressure, coughing, burping, and 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 He was found with elevetad cardiac enzymes and admitted with NSTEMI. Cardiology was consulted. Heart cath showed MV CAD and he wsa transferred to [facility] for CABG consideration. Full workup completed at [facility], CT chest revealed lung nodule. On 06/05, pt underwent CABG x4, LLL wedge resection, pericardial cyst resection. He is extubated with diet ordered. Pt reports he has no appetite, breakfast tray is observed with minimal, if any, consumed. Prior to admission, pt states he fasts from evening to the next afternoon, eats two meals daily, reports his doctor is aware of his intermittent fasting eating pattern and denies any hx of hypoglycemia. Pt does not use ONS, however is agreeable to trial of ONS here. Pt is not sure if he is interested in diet education. RD provided heart healthy diet handout with [facility] RD phone number. Estimated Daily Nutrient Needs: Energy Requirements Based On: Kcal/kg Weight Used for Energy Requirements: [place] (25-28 kcal/kg) Weight for Energy Calculation (kg): 88.9 kg Total Energy Requirements (kcals/day): 5502-4052 Weight Used for Protein Requirements: [place] (1.2-1.5 g/kg) Weight in Kg Used for Protein Requirements: 88.9 kg Estimated Total Protein (g/day): 107-133 Estimated Daily Total Fluid (ml/day): per MD Nutrition Related Findings: Nutrition History: Independent of feeding. Lives with: Spouse/significant other, Children Room Service Room Service: Selective GI symptoms: Decreased appetite. Guille Scale Score: 18 .Wound Type: Surgical Incision Net IO Since Admission: 7,399.98 mL [06/07/23 1232] Edema: RUE Edema: Trace, LUE Edema: Trace, RLE Edema: Non-pitting, LLE Edema: Non-pitting Bowel Sounds (All Quadrants): Hypoactive Abdomen Inspection: Soft, Rounded Last BM Date: 06/01/23 Labs and meds reviewed: acetaminophen, 1,000 mg, Oral, q8h aspirin, 81 mg, Oral, Daily atorvastatin, 80 mg, Oral, Daily ceFAZolin, 2,000 mg, IntraVENous, q8h chlorhexidine, 15 mL, Mouth/Throat, BID heparin, 5,000 Units, SubCUTAneous, BID Lidocaine, 1 patch, Topical, Daily mupirocin, , Nasal, BID [START ON 06/08/2023] pantoprazole, 40 mg, Oral, qAM AC polyethylene glycol (PEG) 3350, 17 g, Oral, Daily senna-docusate sodium, 2 tablet, Oral, Nightly sodium chloride 0.9%, 10 mL, IntraVENous, 2 times per day sodium chloride 0.9%, 5-40 mL, IntraCATHeter, q8h EPINEPHrine, 0.01-0.2 mcg/kg/min, Last Rate: 0.04 mcg/kg/min (06/07/23 1215) insulin regular, 1-50 Units/hr, Last Rate: 2.5 Units/hr (06/07/23 1230) norepinephrine, 0.01-0.2 mcg/kg/min sodium chloride, 20 mL/hr, Last Rate: 20 mL/hr (06/06/23 1230) BMP: Recent Labs 06/05/23 0022 06/06/23 1112 06/07/23 0015 06/07/23 0708 NA 138 138 139 -- K 4.0 4.1 3.4* 3.6 CL 106 109* 106 -- CO2 24 21* 20* -- BUN 19 18 20 -- CREATININE 0.93 0.82 1.11 -- GLUCOSE 126* 156* 164* -- CALCIUM 9.6 9.7 8.8 -- MG 2.0 3.7* 2.6* -- PHOS -- 2.9 -- -- Recent Labs 06/07/23 0708 06/07/23 0805 06/07/23 0910 06/07/23 1005 06/07/23 1104 06/07/23 1229 POCGLU 170* 164* 201* 192* 186* 175* Lab Results Component Value Date HGBA1C 7.5 (H) 06/05/2023 Lab Results Component Value Date EFBP 60 06/04/2023 Current Nutrition Therapies: Adult diet Regular; 5 carb choices (75 gm/meal) Current Oral Intake Average Meal Intake: 1-25% Average Supplements Intake: None Ordered Anthropometric Measures: Height: 190.5 cm (6' 3) Current Body Weight: 124 kg (274 lb 4 oz) (06/06) Admission Body Weight: 124 kg (274 lb 7.6 oz) (bedcale 06/01) [place] Body Weight (lbs) (Calculated): 196 lbs [place] Body Weight (Kg) (Calculated): 89 kg % [place] Body Weight (Calculated): 139.9 % BMI (kg/m2) (Calculated): 34.3 BMI Categories: Obese Class 1 (BMI 30.0-34.9) Wt Readings from Last 10 Encounters: 06/07/23 124 kg (274 lb 4 oz) Nutrition Diagnosis: Increased nutrient needs related to increase demand for energy/nutrients as evidenced by (s/p open heart surgery) Nutrition Interventions: Food and/or Nutrient Delivery: Continue Current Diet, Start Oral Nutrition Supplement Nutrition Education/Counseling: Education not indicated (d/t advanced age - will monitor request for education) Coordination of Nutrition Care: Continue to monitor while inpatient Goals: Goals: PO intake 75% or greater, prior to discharge Nutrition Monitoring and Evaluation: Behavioral-Environmental Outcomes: None Identified Food/Nutrient Intake Outcomes: Food and Nutrient Intake, Supplement Intake Physical Signs/Symptoms Outcomes: Biochemical Data, Chewing or Swallowing, GI Status, Fluid Status or Edema, Weight, Skin Discharge Planning: Too soon to determine Zuri Foster RD, LD Contact: *[phone] or via [email or web address] chat * Katy Roche MD - 06/07/2023 9:00 AM EDTAssociated Order(s): IP CONSULT TO ENDOCRINOLOGY Department of Internal Medicine Division of Endocrinology, Diabetes, & Metabolism Endocrinology Note Patient Name: Chau Barron : 1940 AGE: 82 y.o. Room/Bed: [facility] Admission Date: 06/02/2023 Visit Date: 06/07/2023 Reason for Endocrine Consult: Postop CABG Provider/Team Requesting Consult: CTS PCP: Kishan Ford MD Outpt Mechanical Service Specialist: No ASSESSMENT: Type 2 diabetes with hyperglycemia without long-term insulin use Multivessel CAD s/p CABG Hypertension Hyperlipidemia PLAN: Start Lantus 24 units once, stop insulin drip 1 hour after dose of Lantus Start Humalog medium dose sliding scale with meals Given p.o. appetite, will hold off of starting scheduled Humalog ICU goal <180 GMF goal <150 POCT BG ACHS Hypoglycemia management per protocol Carb controlled diet ANTICIPATED ENDOCRINE HOME GOING RECOMMENDATIONS: Optimized for Discharge from Endocrine standpoint: No Home Going Endocrine Rx Recommendations-- tbd Outpt Follow Up-- PCP SUBJECTIVE/HPI: CHIEF COMPLAINT: S/P CABG Type of DM: 2 Onset of DM: 2017 Home DM Medication Regimen: Metformin XR 500 mg twice daily DM control (last A1c/glucose data): 7.5% on current admission Blood sugars on days prior to CABG were within normal limits Patient was noted to have high insulin requirements yesterday by insulin drip between 14 to 19 units/hr -insulin drip requirements today have been between 2 to 3 units/h Patient was seen at bedside with his spouse Pleasant elderly patient who is able to give a good history He endorses to following strict diet. Follows intermittent fasting for 14 to 16 hours a day Walks 2 miles every day Currently appetite has been poor. Endorses to belching/nausea No history of thyroid issues No other complaints otherwise Glucose Date/Time Value Ref Range Status 06/07/2023 08:05 AM 164 (H) 70 - 100 mg/dL Final 06/07/2023 07:08 AM 170 (H) 70 - 100 mg/dL Final 06/07/2023 06:02 AM 110 (H) 70 - 100 mg/dL Final 06/07/2023 04:58 AM 88 70 - 100 mg/dL Final 06/07/2023 03:58 AM 124 (H) 70 - 100 mg/dL Final 06/07/2023 03:08 AM 136 (H) 70 - 100 mg/dL Final Review of Systems ROS negative except for those mentioned in HPI. OBJECTIVE: Vitals: 06/07/23 0815 06/07/23 0830 06/07/23 0845 06/07/23 0853 BP: 110/56 132/58 113/60 95/56 BP Location: Patient Position: Pulse: 76 78 75 79 Resp: (!) 26 23 (!) 27 24 Temp: TempSrc: SpO2: 91% 90% 90% 90% Weight: Height: Physical Exam Vitals and nursing note reviewed. Constitutional: Appearance: Normal appearance. HENT: Head: Normocephalic and atraumatic. Cardiovascular: Rate and Rhythm: Normal rate and regular rhythm. Pulmonary: Effort: Pulmonary effort is normal. Musculoskeletal: General: Swelling present. Skin: General: Skin is warm and dry. Neurological: General: No focal deficit present. Mental Status: He is alert and oriented to person, place, and time. Psychiatric: Mood and Affect: Mood normal. Behavior: Behavior normal. 24 hour intake/output: Intake/Output Summary (Last 24 hours) at 06/07/2023 0901 Last data filed at 06/07/2023 0845 Gross per 24 hour Intake 6470.8 ml Output 2487 ml Net 3983.8 ml Diet: Adult diet Regular; 5 carb choices (75 gm/meal) Medications (as per EMR): HomeMeds: Current Outpatient Medications Medication Instructions ascorbic acid (VITAMIN C) 1,000 mg, Oral, Daily aspirin 81 mg, Oral, Daily atorvastatin (LIPITOR) 40 mg, Oral, Daily Cholecalciferol 25 mcg, Oral, Daily co-enzyme Q-10 30 mg, Oral, Daily metFORMIN (OSM) (FORTAMET) 500 mg, Oral, Daily with evening meal, Do not crush, chew, or split. niacinamide 500 mg, Oral, 2 times daily with meals valsartan (DIOVAN) 80 mg, Oral, Daily Scheduled Meds:acetaminophen, 1,000 mg, Oral, q8h albumin human, 50 g, IntraVENous, Once aspirin, 81 mg, Oral, Daily atorvastatin, 80 mg, Oral, Daily ceFAZolin, 2,000 mg, IntraVENous, q8h chlorhexidine, 15 mL, Mouth/Throat, BID heparin, 5,000 Units, SubCUTAneous, BID Lidocaine, 1 patch, Topical, Daily mupirocin, , Nasal, BID pantoprazole, 40 mg, IntraVENous, Daily polyethylene glycol (PEG) 3350, 17 g, Oral, Daily senna-docusate sodium, 2 tablet, Oral, Nightly sodium chloride 0.9%, 10 mL, IntraVENous, 2 times per day sodium chloride 0.9%, 5-40 mL, IntraCATHeter, q8h Continuous Infusions:EPINEPHrine, 0.01-0.2 mcg/kg/min, Last Rate: 0.08 mcg/kg/min (06/07/23 0812) insulin regular, 1-50 Units/hr, Last Rate: 1.5 Units/hr (06/07/23 0805) norepinephrine, 0.01-0.2 mcg/kg/min sodium chloride, 20 mL/hr, Last Rate: 20 mL/hr (06/06/23 1230) PRN Meds:PRN medications: calcium gluconate, dextrose, dextrose, EPINEPHrine, glucagon (rDNA), glucose, ipratropium-albuterol, magnesium hydroxide, magnesium sulfate OR magnesium sulfate, morphine sulfate OR morphine sulfate, naloxone, norepinephrine, ondansetron ODT OR ondansetron, oxyCODONE OR oxyCODONE, potassium chloride OR potassium chloride OR potassium chloride, potassium chloride CR, sodium chloride, sodium chloride 0.9%, sodium chloride 0.9% Diagnostic Workup: I reviewed pertinent Laboratory results, Radiographic results, and Other Clinical Notes at the timeof today's encounter. Labs: No components found for: LABA1C No components found for: EAG Lab Results Component Value Date NA 139 06/07/2023 K 3.6 06/07/2023 CL 106 06/07/2023 CO2 20 (L) 06/07/2023 BUN 20 06/07/2023 CREATININE 1.11 06/07/2023 GLUCOSE 164 (H) 06/07/2023 CALCIUM 8.8 06/07/2023 No results found for: CHLPL, CHOL No results found for: TRIG No results found for: HDL No results found for: LDLCALC No results found for: VLDL No results found for: CHOLHDLRATIO No results found for: [id number] No results found for: TSH, [id number], [id number], THYROIDAB Radiology reportsas per the Radiologist Radiology: CT chest wo IV contrast Addendum Date: 06/03/2023 Patient Name: CHAU BARRON : 1940 [facility]#: [id number] Date/Time: 06/03/2023 18:22 Procedure: CT CHEST WO IV CONTRAST Ordering Provider: FLOREZ ANDREW Reason For Exam: assess aorta prior to open heart surgery --------ADDENDUM #1 -------- CRITICALTEST RESULT COMMUNICATION: Notification of these findings was made to Dr. Reta Peterson via [employer] Secure Chat on 06/03/2023 10:17 PM EDT. Report Dictated on Electronically Signed By: Jesron Blackburn MD Electronically Signed Date/Time: 06/03/2023 10:17 PM EDT --------ORIGINAL REPORT -------- CT CHEST WITHOUT CONTRAST: CLINICAL INDICATION: Aortic evaluation prior to cardiac surgery. TECHNIQUE: Transaxial sequence through the chest from apices through the bases at 1 mm reconstruction interval. Coronal and sagittal reconstruction images reviewed. Dose reduction was employedwith automated exposure control. COMPARISON: None. FINDINGS: Lungs: No consolidation or atelectasis. 10 mm left lower lobe nodule (series 4 image 187). Pleural fluid: None. Heart/Great vessels: The heart is mildly enlarged. There are moderate thoracic aortic calcifications. The thoracic aorta is normal in caliber. There are severe coronary artery calcifications. Mediastinum/Candice: Unremarkable on this noncontrast study. Chest wall and lower neck: No abnormality. Upper abdomen: No abnormality throughout the visualized portions of liver. Visualized portions of the spleen are normal. The adrenalsare unremarkable. Osseous structures: Degenerative change of the thoracic spine is noted. IMPRESSION: 1. 10 mm left lower lobe nodule. Recommend biopsy, PET CT or three-month follow-up CT as outlinedbelow*. 2. Mild cardiomegaly. 3. Atherosclerotic disease with coronary artery calcifications. *2017- UPDATED [employer] GUIDELINES FOR MANAGEMENT OF SMALL PULMONARY NODULES DETECTED ON CT Note: Recommendations do not apply for lung cancer screening, patients with immunosuppression or with k nown cancer. Dimensions are average of long and short axis rounded to the millimeter SOLITARY NODULE: LOW RISK PATIENT <6mm - No follow up 6-8mm - 6-12 months, then consider 18-24 months >8mm -PET/CT, Bx or followup in 3 months SOLITARY NODULE: HIGH RISK PATIENT <6mm - Optional 6-12 months (suspicious morphology or upper lobe) 6-8mm - 6-12 months, then 18-24 months >8mm - PET/CT, Bx or followup in 3 months Report Dictated on Electronically Signed By: Jerson Blackburn MD Electronically Signed Date/Time: 06/03/2023 10:07 PM EDT Result Date: 06/03/2023 Patient Name: CHAU BARRON : 1940 [facility]#: [id number] Date/Time: 06/03/2023 18:22 Procedure: CT CHEST WO IV CONTRAST Ordering Provider: FLOREZ ANDREW Reason For Exam: assess aorta prior to open heart surgery CT CHEST WITHOUT CONTRAST: CLINICAL INDICATION: Aortic evaluation prior to cardiac surgery. TECHNIQUE: Transaxial sequence through the chest from apices through the bases at 1 mm reconstruction interval. Coronal and sagittal reconstruction images reviewed. Dose reduction was employed with automated exposure control. COMPARISON: None. FINDINGS: Lungs: No consolidation or atelectasis. 10 mm left lower lobe nodule (series 4 image 187). Pleural fluid: None. Heart/Great vessels: The heart is mildly enlarged. There are moderate thoracic aortic calcifications. The thoracic aorta is normal in caliber. There are severe coronary artery calcifications. Mediastinum/Candice: Unremarkable on this noncontrast study. Chest wall and lower neck: No abnormality. Upper abdomen: No abnormality throughout the visualized portions of liver. Visualized portions of the spleen are normal. The adrenals are unremarkable. Osseous structures: Degenerative change of the thoracic spine is noted. 1. 10 mm left lower lobe nodule. Recommend biopsy, PET CT or three-month follow- up CT as outlined below*. 2. Mild cardiomegaly. 3. Atherosclerotic disease with coronary artery calcifications. *2017 -UPDATED [employer] GUIDELINES FOR MANAGEMENT OF SMALL PULMONARY NODULES DETECTED ON CT Note: Recommendations do not apply for lung cancer screening, patients with immunosuppression or with kno wn cancer. Dimensions are average of long and short axis rounded to the millimeter SOLITARY NODULE:LOW RISK PATIENT <6mm - No follow up 6-8mm - 6-12 months, then consider 18-24 months >8mm - PET/CT, Bx or followup in 3 months SOLITARY NODULE: HIGH RISK PATIENT <6mm - Optional 6-12 months (suspicious morphology or upper lobe) 6-8mm - 6-12 months, then 18-24 months >8mm - PET/CT, Bx orfollowup in 3 months Report Dictated on Electronically Signed By: Jerson Blackburn MD Electronically Signed Date/Time: 06/03/2023 10:07 PM EDT ECG 12 lead DAILY Sinus rhythm Nonspecific IVCD with LAD Borderline T abnormalities, inferior leads Electronically Signed On 06-03-2023 14:52:31 EDT by Sae Raza ECG 12 lead DAILY Sinus bradycardia Nonspecific IVCD with LAD Probable inferior infarct, age indeterminate Electronically Signed On 06-03-2023 14:25:43 EDT by Sae Raza XR chest 1 view Result Date: 06/03/2023 [facility] 1940 [id number] Date/Time: 06/03/2023 05:41 Procedure: XR CHEST 1 VIEW Ordering Provider: KAY KYLE Reason For Exam: DYSPNEA CHEST X-RAY AP CLINICAL INDICATION: Dyspnea AP radiograph of the chest was obtained. COMPARISON: 06/02/2023 FINDINGS: The cardiac silhouette is within normal limits. The exam was obtained at low inspiratory volumes resulting in crowding of the pulmonary interstitial markings. Nofocal consolidation or opacification is seen within the lungs. No pleural effusion or pneumothorax is identified. Degenerative changes of the thoracic spine are noted. No acute cardiopulmonary process. Report Dictated on Electronically Signed By: Jasiel Stone MD Electronically Signed Date/Time: 06/03/2023 9:59 AM EDT POCT glucose meter Result Date: 06/03/2023 Performed by: [facility], [address] [place] [address] CLIA ID: [id number] XR chest 1 view Result Date: 06/02/2023 [facility] 1940 [id number] Date/Time: 06/02/2023 17:50 Procedure: XR CHEST 1 VIEW Ordering Provider: KAY KYLE Reason For Exam: DYSPNEA CLINICAL INFORMATION: Shortness of breath. Portable view of the chest at 1745 hours is provided without comparison. FINDINGS: The thoracic aorta is tortuous and ectatic. The cardiac silhouette and mediastinum are otherwise within normal limits. There are no focal infiltrates. There is mild prominence of the central pulmonary vasculature. 1. No focal infiltrates. 2. Prominence of the central pulmonary vasculature consistent with mild congestive heart failure/fluid overload. Report Dictated on Electronically Signed By: Domingo Langley MD Electronically Signed Date/Time: 06/02/2023 6:23 PM EDT History/Other: Past Medical History: Past Medical History: Diagnosis Date Coronary artery disease Diabetes mellitus (HCC) Hypercholesteremia Hypertension Past Surgical History: Past Surgical History: Procedure Laterality Date DENTAL IMPLANT Allergy(ies): No Known Allergies Family History: No family history on file. Social History: Social History Tobacco Use Smoking status: Never Smokeless tobacco: Never Portions of the information within this encounter were entered using an electronic dictation system. Best attempts were made to edit/proofread the information prior to note completion. Despite the review of information, some errors may remain. If there are questions related to the information contained within the note please contact the signing physician directly. I spent 55 minutes with the pt which involved coordination of care, medical evaluation, review of records, and/or counseling of the pt regarding his/her condition/disease state/prognosis on the date of this note. * Steffanie Zhu - 06/07/2023 8:34 AM EDTAssociated Order(s): IP CONSULT TO CARDIAC REHAB Received referral and reviewed chart. Phase II Cardiopulmonary Rehab Referral discussed with Chau Barron. Patient prefers cardiopulmonary rehab at [facility]. Given information on program at preferred location. * Erica Kay APRN - [employer] - 06/06/2023 11:12 AM EDT Images from the original note were not included. [facility]: Critical Care Consultation Note Date: 06/06/23 PATIENT NAME: Chau Barron : 1940 (82 y.o.) Reason for Consult: Critical Care & Vent Management HPI: 82 y.o. with pmHx of HLD, HTN, T2DM who was transffered from outside hospital for CABG consideration. Per paper chart brought with the patient, he developed midsternal chest pressure, coughing, burping, and sweating while riding his lawnmower. By the time the patient arrived to the ED - chest pressure had slightly improved. Cardiac enzymes were elevated and he was admitted as NSTEMI and Cardiology was consulted. Cardiac cath was then preformed which showed: Distal LM 60-70% stenosis left main bifurcating into LAD, ramus and left circumflex. LAD with ostial and proximal ~70%. Distal LAD %, ostial LCx 70%, RCA large dominant , calcified with proximal RCA thrombus: JIMMY-3 flow in the RCA. He was transferred to [facility] for CABG consideration. Full workup completed at [facility], CT chest revealed lung nodule. Surgery planned for 06/06/23. Surgery: 06/06/23: Dr. Peterson- CABGx 4 (HERNANDEZ-LAD, SVG-PDA, SVG- RAMUS, SVG-DIAG1), LLE EVH, LLL wedge resection, pericardial cyst resection Interval History: 06/06/23: POD #0: Patient arrived to the unit, intubated and sedated. Surgical hand off completed below. Surgery Hand Off: Arrival Time in CTVICU: 1150 Complications/Pertinent Events: Last Paralytic: Medications given in route: Gtts OR report Epinephrine: 0.03mcg/kg/min Propofol: 40mcg/kg/min Insulin: off Amicar: 29 Current gtts upon arrival Epinephrine: 0.03mcg/kg/min Propofol: 40mcg/kg/min Insulin: off Amicar: 29 Devices: Epicardial wires: yes [x] no [] IABP: yes [] no [x] LVAD: yes [] no [x] Speed: Equipment: Back up controller yes [] no [x] Blood Transfusions Intra Op: yes [] no [x] CellSaver: Yes Vital Signs including Cardiac Numbers (if indicated) at Conclusion of Hand-off OR CTVICU CO NO SWAN CI CVP SVR PAP Additional Interventions/Misc during Handoff Bigeminy/bradycardia coming off pump, needing paced- now NSR on arrival to room. Review of Systems Unable to perform ROS: Intubated Allergies: Patient has no known allergies. Past Medical History: has a past medical history of Coronary artery disease, Diabetes mellitus (HCC), Hypercholesteremia,and Hypertension. Past Surgical History: has a past surgical history that includes Implant. Social History: reports that he has never smoked. He has never used smokeless tobacco. Family History: family history is not on file. Medications: Prior to Admission medications Medication Sig Start Date End Date Taking? Authorizing Provider ascorbic acid (Vitamin C) 1000 MG tablet Take 1,000 mg by mouth daily. Historical Provider, aspirin 81 MG EC tablet Take 81 mg by mouth daily. Historical Provider, atorvastatin (Lipitor) 40 MG tablet Take 40 mg by mouth daily. Historical Provider, Cholecalciferol 25 MCG (1000 UT) chewable tablet Chew 25 mcg daily. Historical Provider, co-enzyme Q-10 30 MG capsule Take 30 mg by mouth daily. Historical Provider, metFORMIN, OSM, (Fortamet) 500 MG 24 hr tablet Take 500 mg by mouth with evening meal. Do not crush, chew, or split. Historical ProviderMD niacinamide 500 MG tablet Take 500 mg by mouth in the morning and 500 mg in the evening. Take with meals. Historical Provider, MD valsartan (Diovan) 80 MG tablet Take 80 mg by mouth daily. Historical Provider, Objective: BP 125/72 Pulse 71 Temp 36.7 C (98 F) (Temporal) Resp 20 Ht 6' 3 (1.905 m) Wt 263 lb 10.7 oz (120 kg) SpO2 94% BMI 32.96 kg/m Intake/Output Summary (Last 24 hours) at 06/06/2023 1112 Last data filed at 06/06/2023 1049 Gross per 24 hour Intake 1042.01 ml Output 200 ml Net 842.01 ml Physical Exam Vitals reviewed. Constitutional: Interventions: He is sedated and intubated. HENT: Mouth/Throat: Mouth: Mucous membranes are dry. Comments: ETT/OG. Neck: Comments: Central line. Cardiovascular: Rate and Rhythm: Normal rate and regular rhythm. Pulses: Normal pulses. Heart sounds: No murmur heard. Pulmonary: Effort: He is intubated. Breath sounds: Rhonchi present. No wheezing or rales. Comments: Ventilator assisted. Abdominal: General: There is no distension. Palpations: Abdomen is soft. Genitourinary: Comments: [place]. Musculoskeletal: General: No swelling. Skin: General: Skin is dry. Capillary Refill: Capillary refill takes less than 2 seconds. Comments: Cool. LLE AYANA wrap in place over EVH site. Dressing intact over MSI, no drainage noted. Diagnostics: Reviewed in EMR Labs: Reviewed in EMR BMP: Recent Labs 06/04/23 0224 06/05/23 0022 NA 136 138 K 4.9 4.0 CL 103 106 CO2 24 24 BUN 21* 19 CREATININE 0.95 0.93 CALCIUM 9.3 9.6 MG 2.2 2.0 CBC: Recent Labs 06/04/23 0224 06/05/23 0022 WBC 13.3* 13.8* HGB 14.0 13.5 HCT 41.1 38.6* PLT 232 224 MCV 92.6 91.0 RDW 13.5 13.5 INR: No results for input(s): INR in the last 72 hours. Assessment: MVCAD/NSTEMI s/p CABG LLL nodule (10mm) HTN T2DM HLD Post operative Pulm Management: Normal Post-operative Course Post-operative Atrial Fibrillation: []Yes [x] No Acute blood loss anemia Plan: - Sugamadex x1 - Wean sedation as able, goal RASS -1 to 0 - SAT/SBT when following commands and appropriate->extubate - Scheduled acetaminophen and lidocaine patches, IV morphine and PO oxy PRN - Review labs, replace 'lytes as needed - STAT EKG and CXR - No [place], can check VBG and perform Catarina calculation if needed for CI - Hemodynamic goals: CI >2.0, SBP 90-130 mmHg, MAP 60-75 - PRN Hypertension 1st option Cardene gtt 2nd option or if Cardene unavailable Nitro -PRN Hypotension CI >2.0 euvolemic with low SVR- Levophed gtt CI <2.0 euvolemic - Epinephrine gtt - Temp pacing wires/mode: V-wires to backup - Chest tubes: no air leak or fluctuation noted, suction -20 - Cefazolin - surgical prophy for 5 doses total - Wean to Extubation: Arrival Time in unit: 1150 - Vent: ACVC+, TV 6ml/kg/min, rate 12, fio2 100% PEEP 8 VAP protocol: HOB >30 degrees; peridex BID - HgbA1c: 7.5 - Blood glucose 162 - Insulin gtt; per endo/protocol - GI prophy: Protonix IV daily Patient treatment plan and plan of care discuss with Dr. Ying Mcintosh Associated attestation - Ying Mcintosh DO - 06/06/2023 3:40 PM EDT I personally saw and evaluated the patient on 06/06/23. I reviewed and agree with the BELKIS s documentation. I provided a substantive portion of the care of this patient. I personally performed the examand MDM for this encounter as follows Physical exam: Gen: intubated, sedated, no apparent distress HEENT: +ETT, no JVD CV: RRR, no murmur, +CT with serosanguinous drainage Lungs: CTAB, no wheezing/rhonchi/crackles, breathing unlabored Abd: soft, no distention, absent breath sounds Ext: no edema, no cyanosis, <2 sec cap refill, 2+ bilateral radial pulses Skin: warm/dry, no rash Assessment: mvCAD/NSTEMI now s/p CABGx4 (POD 0) Left lower lobe nodule s/p left lower lobe wedge resection Pericardial cyst s/p pericardial cyst resection Post op pulmonary management: expected post op course Acute post op blood loss anemia Mild to moderate aortic stenosis HTN/HLD DM2 with hyperglycemia (A1c 7.5) Plan: -cont mech vent, wean as able. Sugammadex x1. SBT once appropriate/awake -monitor chest tube output, monitor CBC/coags -optimize pain control -monitor hemodynamics via Ficks/VBG. Currently on low dose epinephrine gtt at 0.04 mcg/kg/min to maintain MAP -insulin gtt per protocol, endocrine consult pending Total critical care time for this patient with life-threatening unstable organ failure, including direct patient contact, management of life support systems, review of data including imaging and labs, and discussions with other team members and physicians at least 34 minutes so far today, excludingprocedures. documented in this [facility]04-24-2024 NoteStart PACC Note Home Health Referral Educated patient and on Home Care and services available. Patient offered choice of available HHC and agreeable to SN/PT services with [facility] - Home Care. Care Types: [facility] Program Isolation Precautions: No active isolations Social Determinates of Health: Tobacco Use: Low Risk (06/02/2023) Patient History Smoking Tobacco Use: Never Smokeless Tobacco Use: Never Passive Exposure: Not on file Social History Substance and Sexual Activity Alcohol Use None Social History Substance and Sexual Activity Drug Use Not on file Does the patient have any financial resource strain? No Does the patient have any food insecurities? No Does the patient have any housing instabilities? No If any of the above is noted as yes - consider a CONTAINER FILLER evaluation once the patient returns home. START PATIENT REGISTRATION INFORMATION Order Information Order Signing Physician: Reta Peterson MD Service Ordered RN ?: Yes Service Ordered PT ?: Yes Service Ordered OT ?: No Service Ordered ST ?: No Service Ordered CONTAINER FILLER?:No Service Ordered TAR HEAT EXCHANGER CLEANER?: No Following Physician: Reta Peterson MD Following Physician Overseeing Physician: Reta Peterson MD (Required for Residents only) Agreeable to Follow? Yes Date/Time of Call 06/07/23 11:50 AM, Spoke with: Care Coordination Same Day SOC?: No Primary Care Physician: Kishan Ford MD Primary Care Physician Primary Care Physician Address: [facility] [place] [address] Visit Instructions: N/A Service Discharge Location Type: Home with Home Health Care Service Facility Name: N/A Service Floor Facility: N/A Service Room No: N/A Demographics Patient Last Name: Nakul Patient First Name: Chau Language/Communication Barrier: no [facility] [facility] Service City: [facility] ST: [place] Service ZIP: [address] Service (home) Other phone numbers: [phone] Emergency Contact: Extended Emergency Contact Information Primary Emergency Contact: Claudia Barron Mobile Relation: Daughter Preferred language: Lebanese Secondary Emergency Contact: NakulRinamegan Mobile Relation: Spouse Preferred language: Lebanese Admission Information Admit Date: 06/02/2023 Patient status at discharge: Inpatient Admitting Diagnosis: CAD in [place] artery [I25.10] Caregiver Information Caregiver First Name: na Caregiver Last Name: na Caregiver Relationship to Patient na Caregiver Phone Number: na Caregiver Notes: N/A Rate Solutions List No END PATIENT REGISTRATION INFORMATION Pt Home Health goal go home COVID Status 1. Do you have any upper respiratory symptoms (cough, SOB, Fever)? No 2. Have you been exposed to anyone with COVID-19 Virus? No Answer only if pending or positive for COVID-19? 1. Agreeable to wear PPE at each visit? No 2. Is the hospital supplying them with PPE upon Discharge? No Start PACC Summary General Report/ Additional Comments Wound care/dressing changes: -Surgical incisions leave open to air, cleanse daily with mild soap & warm water, pat dry, no lotion or powders on incision. -Surgical tape/dsg removal 10 days from surgery date Respiratory Care: -Cough and Deep Breath; Use incentive spirometry 10 times every hour while awake for 2 weeks. Additional Orders: -Sternal precautions (no lifting, pushing, pulling >10 lbs) for 6 weeks-use heart pillow -Vitals per home health protocol-call for fever and chills -Daily weights- call for weight gain: 2-3lbs in one day; 5lbs in 3 days. -Wear TEDs during day and off at night. Lab Work: -If Diabetic: blood glucose testing as directed by PCP/Mechanical Service Specialist -For recent heart surgery if patient discharged on Coumadin verify need for INR draw on visit. Activity/Weight Bearing: -Up with assistance: up in chair for all meals, ambulate 3-4 times a day -Stretching exercises per PT discharge instructions Discharge Date: pending Referral Source-PACC: (Hospital/Unit): [facility] / / A End PACC [place] [id number] NoteCare Management Progress Note Patient remains in CTV ICU now s/p CABG x 4 and LLL wedge resection POD # 1. Extubated overnight weaned to 6L NC, requiring Epi, in NSR on tele, chest tube to water seal, insulin per endocrine, and PT/OT evals pending. DCP-goal home with [facility]. AB following. Discharge Milestones and Delays Expected Date/Time: 06/13/[address] discharge order Complete med reconciliation Case mgmt discharge readiness Clinical Stability Diagnsotic Workup Expected Discharge History Expected Date/Time Set By Reviewed At 06/13/2023 Afia Arce RN 06/07/2023 9:02 AM 06/09/2023 Erica Kay, PRODUCT MANAGER FINANCIAL SERVICES - DERRICK BOAT CAPTAIN 06/02/2023 2:17 PM Length of Stay (Days): 5 GMLOS: 1.8 [place] [id number] NoteReceived referral and reviewed chart. Phase II Cardiopulmonary Rehab Referral discussed with Chau Barron. Patient prefers cardiopulmonary rehab at [facility]. Given information on program at preferred location. [facility]04-23-2024 NotePatient: Chau Barron Procedure Summary Date: 06/06/23 Room / Location: [facility] [address] [place] [address] Operating Room Anesthesia Start: 651 Anesthesia Stop: 1208 Procedures: CORONARY ARTERY BYPASS GRAFT, LEFT LOWER LOBE WEDGE RESECTION (Chest) TRANSESOPHAGEAL ECHOCARDIOGRAPHY LEFT LOWER LOBE WEDGE RESECTION (Left: Chest) Diagnosis: Atherosclerotic heart disease of [place] coronary artery without angina pectoris Solitary pulmonary nodule Surgeons: Reta Peterson MD Responsible Provider: Kel Lainez MD Anesthesia Type: general ASA Status: 4 Anesthesia Type: general Vitals Value Taken Time BP 105/70 06/06/23 1209 Temp 37 ?C (98.6 ?F) 06/06/23 1209 Pulse 67 06/06/23 1210 Resp 24 06/06/23 1210 SpO2 100 % 06/06/23 1210 Vitals shown include unfiled device data. Anesthesia Post Evaluation Patient location during evaluation: ICU Patient participation: complete - patient cannot participate Level of consciousness: intubated and sedated Pain management: adequate Airway patency: patent Dental Injury: no Cardiovascular status: acceptable and hemodynamically stable Respiratory status: acceptable, ETT, intubated and ventilator Hydration status: acceptable Nausea/Vomiting: controlled No notable events documented. Patient can be discharged once all PACU criteria has been met.[facility]04-23-2024 NotePatient: Chau Barron Procedure Summary Date: 06/06/23 Room / Location: [facility] [address] [place] [address] Operating Room Anesthesia Start: 651 Anesthesia Stop: 1208 Procedures: CORONARY ARTERY BYPASS GRAFT, LEFT LOWER LOBE WEDGE RESECTION (Chest) TRANSESOPHAGEAL ECHOCARDIOGRAPHY LEFT LOWER LOBE WEDGE RESECTION (Left: Chest) Diagnosis: Atherosclerotic heart disease of [place] coronary artery without angina pectoris Solitary pulmonary nodule Surgeons: Reta Peterson MD Responsible Provider: Kel Lainez MD Anesthesia Type: general ASA Status: 4 Anesthesia Type: general Vitals Value Taken Time BP 105/70 06/06/23 1209 Temp 37 ?C (98.6 ?F) 06/06/23 1209 Pulse 63 06/06/23 1209 Resp 20 06/06/23 1209 SpO2 99 % 06/06/23 1209 Vitals shown include unfiled device data. Anesthesia Post Evaluation Patient participation: complete - patient cannot participate Post-procedure mental status: sedated/intubated. Pain score: 0 Pain management: adequate Multimodal analgesia pain management approach Airway patency: patent Two or more strategies used to mitigate risk of obstructive sleep apnea Cardiovascular status: hemodynamically stable Respiratory status: acceptable, intubated, ventilator and ETT Hydration status: acceptable No notable events documented. MIPS #430 PONV Patient received an inhalational anesthetic (4554F) Patient exhibits three or more risk factors for PONV (4556F) Patient received at leaset 2 prophylactic Rx PONV anti-emtic agents of different classes preop and/or intraop (G9775) MIPS # 424 Perioperative Temperature Management Anesthesia time was 60 minutes or longer (4255F) Anesthesai administered was General (inhalational or TIVA) or Neuraxial block (X0424) At least one body temperature greater than 95.8F/35.5C achieved within the 30 mins immediately prior to or the 15 minutes immediately following anesthesia end time (G9771) MIPS #477 Multimodal Pain Management Emergent case Exlusion- Stop here (M1142) MIPS #404 Anesthesiology Smoking Abstinence The patient is not a current smoker (e.g. cigarette, cigar, pipe, e-cigarette/vaping/marijuana) If no stop here (XX404) I completed my handoff to the receiving clinician during which we: 1. Identified the patient 2. Identified the responsible provider 3. Reviewed the pertinent medical history 4. Discussed the surgical course 5. Reviewed intra-op anesthesia management and issues during anesthesia 6. Set expectations for post-procedure period 7. Allowed opportunity for questions and acknowledgement of understanding.[facility]04-23-2024 NoteArterial Line: Date/Time: 06/06/2023 7:12 AM An arterial line was placed Procedure performed using ultrasound guidance - Image permanently retained with wire or catheter in vein.in the Procedural for the following indication(s): continuous blood pressure monitoring and blood sampling needed. A 20 gauge (size), 1 and 3/4 inch (length), Arrow (type) catheter was placed, into the Left radial artery, secured by Tegaderm and tape. Events: patient tolerated procedure well with no complications. Staffing Performed: [facility] Anesthesiologist: Kel Lainez MD Resident/CHIEF DATA OFFICER: Kike Harris APRN - CRNAAsc[facility]04-23-2024 NoteAirway Date/Time: 06/06/2023 7:19 AM Urgency: scheduled Airway not difficult General Information and Staff Patient location during procedure: Procedural Anesthesiologist: Kel Lainez MD Resident/CHIEF DATA OFFICER: CHRISTIANO Salazar CRNA Performed: SRNA Indications and Patient Condition Indications for airway management: anesthesia Sedation level: Asleep Preoxygenated: yes Patient position: ramp Mask difficulty assessment: 3 - difficult mask (inadequate, unstable or two providers) +/- NMBA Final Airway Details Final airway type: endotracheal airway Successful airway: ETT Cuffed: yes Successful intubation technique: direct laryngoscopy Facilitating devices/methods: intubating stylet Endotracheal tube insertion site: oral Blade: Evelyn Blade size: #4 ETT size (mm): 8.0 Cormack-Lehane Classification: grade IIa - partial view of glottis Placement verified by: chest auscultation and capnometry Measured from: gums ETT to gums (cm): 23 Number of attempts at approach: 1 Number of other approaches attempted: [address] [place], [place] [id number] Note Central Venous Line: Date/Time: 06/06/2023 7:30 AM A central venous line was placed in the Procedural for the following indication(s): Sterility preparation included the following: provider hand hygiene performed prior to central venous catheter insertion, all 5 sterile barriers used (gloves, gown, cap, mask, large sterile drape) during central venous catheter insertion, antiseptic used during central venous catheter insertion and skin prep agent completely dried prior to procedure. Medical reason for not performing maximal sterile barrier technique: no The patient was placed in Trendelenburg position. Right internal jugular vein was prepped. The site was prepped with Chlorhexidine. Size: 8.5 Fr Catheter type: introducer Number of Lumens: single lumen During the procedure, the following specific steps were taken: target vein identified, needle advanced into vein and blood aspirated and guidewire advanced into vein. Procedure performed using ultrasound guidance - Image permanently retained with wire or catheter in vein. Sterile gel and probe cover used in ultrasound-guided central venous catheter insertion. Intravenous verification was obtained by ultrasound and manometry. Post insertion care included: all ports aspirated, all ports flushed easily, guidewire removed intact, Biopatch applied, line sutured in place and dressing applied. During the procedure the patient experienced: patient tolerated procedure well with no complications. Additional notes: Triple lumen SLIC catheter placed Staffing Performed: anesthesiologist Anesthesiologist: Kel Lainez, [facility] [id number] NoteDATE OF PROCEDURE: 06/06/2023 PREOPERATIVE DIAGNOSIS: Coronary artery disease Mild to moderate aortic stenosis Left lower lobe nodule POSTOPERATIVE DIAGNOSIS: Coronary artery disease Mild to moderate aortic stenosis Left lower lobe nodule Pericardial cyst PROCEDURE: 1. Coronary artery bypass grafting x 4 - Left internal mammary artery to the left anterior descending - Saphenous vein graft to the ramus - Saphenous vein graft to the right posterior descending artery - Saphenous vein graft to the diagonal 1 2. Endoscopic vein harvest, left lower extremity 3. Left lower lobe wedge 4. Pericardial cyst resection SURGEON: Reta Peterson MD BOARD FINISHER: Mayda Jeffers SA COMPLICATIONS: None intra-op CONDITION: Stable DESCRIPTION OF PROCEDURE: The patient was prepped and draped in the appropriate manner, having undergone general endotracheal anesthetic in addition to arterial line, and mccord catheter placement. An antibiotic and a beta silvano were administered pre-operatively and documented. Incision and conduit harvest/preparation: A midline sternotomy incision was utilized in standard fashion. The sternum was divided with the oscillating saw. The left internal mammary artery was taken down with clips and bovie cauterization. Papaverine was used. The left lower extremity saphenous vein was harvested via the endoscopic approach. The patient was fully heparinized prior to dividing and prepping the mammary. Cannulation and cardiopulmonary bypass: After cannulation, the patient was placed on cardiopulmonary bypass support. Ascending aortic cross-clamp was applied. Antegrade cardioplegia (microplegia) was delivered till the heart was arrested in diastole. Cardioplegia was re-administered every 20 minutes while the ascending aorta was cross clamped. Aortic canula: 22 Fr metal tip cannula in distal ascending aorta Venous canula: 29/29 Fr triple stage cannula via right atrial appendage Cardioplegia: Antegrade via cannula in the mid ascending aorta Coronary artery bypass: Bypasses were performed using the respective conduits listed above to the [place] arterial targets with 7-0 Prolene distally and 6-0 Prolene proximally to the ascending aorta. The left internal mammary artery was anastomosed to the LAD with 7-0 Prolene. Left lower lobe wedge: The lung nodule was identified in the left lower lobe. It was resected using several firings of blue staple loads. It was passed of to pathology. Pericardial cyst resection: A pericardial cyst was identified at the base of the heart. A silk tie was secured at the base and the cyst was divided and passed off to pathology. CPB wean and decannulation: The patient was given a dose of warm blood cardioplegia. Valsalva breaths were mechanically administered and the aorta was unclamped. Pacing wire was placed. The patient was rewarmed and weaned from cardiopulmonary bypass support without difficulty. Protamine was administered and cannulas were removed without difficulty. Two 24 Fr hipolito drains were placed, one in the left pleural space and one in the mediastinum. Closure: Hemostasis was achieved. The sternum and incision were closed with sternal wires, running 0, 2-0 and 4-0 stitches. Dressings applied, and the patient was transferred to the cardiovascular intensive care unit in stable condition. Cardiopulmonary bypass time: 97 minutes Cross clamp time: 77 minutes Intra-op JAYCE: Mild to moderate aortic stenosis. Normal LV function. [facility]Tr[facility] [id number] NotePatient: Chau Barron Procedure Information Date/Time: 06/06/23 0700 Procedures: CORONARY ARTERY BYPASS GRAFT, (Chest) TRANSESOPHAGEAL ECHOCARDIOGRAPHY LEFT LOWER LOBE WEDGE RESECTION (Left: Chest) Location: [facility] Operating Room Surgeons: Reta Peterson MD Relevant Problems Cardio (+) CAD in [place] artery Past Medical History: Past Medical History: No date: Coronary artery disease No date: Diabetes mellitus (HCC) No date: Hypercholesteremia No date: Hypertension Past Surgical History: Past Surgical History: No date: DENTAL IMPLANT Social History: TOBACCO: reports that he has never smoked. He has never used smokeless tobacco. ETOH: has no history on file for alcohol use. Social History Substance and Sexual Activity Drug Use Not on file Family History: No family history on file. Screening: unknown Clinical information reviewed: Tobacco Allergies Med Hx Surg Hx Fam Hx Soc Hx Physical Exam Airway Mallampati: II TM distance: <3 FB Neck ROM: full endotracheal tube not in place Cardiovascular Dental Pulmonary Abdominal Left Ventricle: Left ventricle is smaller than normal. Mildly increased wall thickness. Normal left ventricular systolic function. EF by 2D Simpsons Biplane is 60%. Normal wall motion. Right Ventricle: Right ventricle size is normal. Normal systolic function. Aortic Valve: Mild stenosis of the aortic valve. AV mean gradient is 6 mmHg. AV peak gradient is 11 mmHg. AV peak velocity is 1.6 m/s. AV Velocity Ratio is 0.50. AV area by continuity VTI is 2.2 cm2. AV area by peak velocity is 2.1 cm2. Stroke volume index is 34.1 mL/m2. There is unusual rocking motion of aortic valve, although no vegetation or perivalvular lucency is noted. Right Atrium: Right atrium is mildly dilated. Aorta: Mildly dilated sinuses of Valsalva. Mildly dilated ascending aorta. Ao ascending diameter is 4.2 cm. Anesthesia Plan patient is NPO appropriate Any family history or previous problems with anesthesia no ASA 4 general Any family history or previous problems with anesthesia no The patient is not a current smoker. Anesthetic plan and risks discussed with patient. Use of blood products discussed with who consented to blood products. Anesthesia Amezquita Considerations [place], cordis, postop intubation YOLANDA Screening Labs: Lab Results Component Value Date WBC 13.8 (H) 06/05/2023 HGB 13.5 06/05/2023 HCT 38.6 (L) 06/05/2023 MCV 91.0 06/05/2023 PLT 224 06/05/2023 Lab Results Component Value Date NA 138 06/05/2023 K 4.0 06/05/2023 CL 106 06/05/2023 CO2 24 06/05/2023 BUN 19 06/05/2023 CREATININE 0.93 06/05/2023 GLUCOSE 126 (H) 06/05/2023 CALCIUM 9.6 06/05/2023 PROT 8.3 (H) 06/04/2023 ALKPHOS 42 06/04/2023 AST 60 (H) 06/04/2023 ALT 30 06/04/2023 EGFR 82.0 06/05/2023 Transthoracic echocardiogram (TTE) complete with contrast, bubble, strain, and 3D PRN Result Date: 06/04/2023 Left Ventricle: Left ventricle is smaller than normal. Mildly increased wall thickness. Normal left ventricular systolic function. EF by 2D Simpsons Biplane is 60%. Normal wall motion. Right Ventricle: Right ventricle size is normal. Normal systolic function. Aortic Valve: Mild stenosis of the aortic valve. AV mean gradient is 6 mmHg. AV peak gradient is 11 mmHg. AV peak velocity is 1.6 m/s. AV Velocity Ratio is 0.50. AV area by continuity VTI is 2.2 cm2. AV area by peak velocity is 2.1 cm2. Stroke volume index is 34.1 mL/m2. There is unusual rocking motion of aortic valve, although no vegetation or perivalvular lucency is noted. Right Atrium: Right atrium is mildly dilated. Aorta: Mildly dilated sinuses of Valsalva. Mildly dilated ascending aorta. Ao ascending diameter is 4.2 cm. 06/02/23 ECG 12-LEAD 06/04/2023 5:38 PM (Final) Impression Sinus rhythm Nonspecific IVCD with LAD Abnormal T, consider ischemia, inferior leads Electronically Signed On 06-04-2023 17:38:47 EDT by Sae Raza Signed by: Sae Raza MD on 06/04/2023 5:38 [facility] 06-03-2023 Nurse Note* Pardeep Koo RN - 06/03/2023 7:20 PM EDT Per BOX FOLDING MACHINE OPERATOR Caleb patient ok to shower if it is quick verbal order given. documented in this [facility]04-20-2024 Note Attestation signed by Reta Peterson MD at 06/04/2023 11:00 AM DOS: 06/04/2023 I personally performed a face to face diagnostic evaluation on this patient. I agree with the findings and plan of care as documented by the PRODUCT MANAGER FINANCIAL SERVICES, there has been no change in the physical exam or findings unless otherwise noted below. 82 M with MVCAD Coronary artery disease: I discussed with him the indications, risks, benefits, and perioperative course of a coronary artery bypass grafting. I discussed alternatives including no intervention, medical therapy only, and percutaneous coronary intervention with medications. A surgical revascularization is recommended in his case. On my review of the coronary angiogram, he does have good targets and will need 3-4 vessel bypass grafts. He is quite functional and is of low risk. He is agreeable. CT chest and echocardiogram ordered. The risks of the procedure/s include but are not limited to, bleeding, infection, pneumonia, respiratory failure, prolonged Intensive Care Unit stay, multiorgan failure, renal failure needing temporary and/or permanent dialysis, cerebrovascular accident, pulmonary embolism, deep venous thrombosis, cardiac failure or ischemia or arrhythmia, and . A total of 80 minutes were spent between the face to face encounter, physical exam, reviewing the medical history, coordinating the patient's care, counseling/educating the patient, ordering prescriptions/medications/tests/procedures, interpreting results and documenting clinical information in the patient's electronic health record on the day of the encounter. The patient was seen and examined independently and relevant data reviewed by myself. A full chart review was performed. Reta Peterson MD Cardiothoracic Surgery [facility] Medical Group: Cardiothoracic Surgery H&P PATIENT NAME: Chau Barron : 1940 (82 y.o.) TODAY'S DATE: 06/03/2023 DATE OF ADMISSION: 06/02/2023 5:32 PM Reason for Transfer: CABG evaluation Consulting Provider: Edmund Subjective: CC: MVCAD/NSTEMI HPI: 82 y.o. with pmHx of HLD, HTN, T2DM who was transffered from outside hospital for CABG consideration. Per paper chart brought with the patient, he developed midsternal chest pressure, coughing, burping, and sweating while riding his lawnmower. By the time the patient arrived to the ED - chest pressure had slightly improved. Cardiac enzymes were elevated and he was admitted as NSTEMI and Cardiology was consulted. Cardiac cath was then preformed which showed: Distal LM 60-70% stenosis left main bifurcating into LAD, ramus and left circumflex. LAD with ostial and proximal ~70%. Distal LAD around 95%, ostial LCx 70%, RCA large dominant , calcified with proximal RCA thrombus: JIMMY-3 flow in the RCA. He was transferred to [facility] for CABG consideration. Currently patient resting in bed with no issues or concerns at this time. He denies any cardiac symptoms. A complete ROS was documented below. Review of Systems Constitutional: Negative for appetite change, diaphoresis, fatigue, fever and unexpected weight change. HENT: Negative for congestion and dental problem. Eyes: Negative for pain, redness and visual disturbance. Respiratory: Negative for cough, choking, chest tightness, shortness of breath and wheezing. Gastrointestinal: Negative for abdominal distention, abdominal pain, blood in stool, constipation, diarrhea, nausea and vomiting. Endocrine: Negative for cold intolerance and heat intolerance. Genitourinary: Negative for difficulty urinating and frequency. Musculoskeletal: Negative for arthralgias, back pain, gait problem and joint swelling. Skin: Negative for color change, pallor, rash and wound. Allergic/Immunologic: Negative for immunocompromised state. Neurological: Negative for dizziness, seizures, syncope, speech difficulty, weakness, light-headedness and numbness. Hematological: Does not bruise/bleed easily. Psychiatric/Behavioral: Negative for confusion, decreased concentration and sleep disturbance. The patient is not nervous/anxious. Allergies: Patient has no known allergies. Past Medical History: has a past medical history of Coronary artery disease, Diabetes mellitus (HCC), Hypercholesteremia, and Hypertension. Past Surgical History: has a past surgical history that includes Implant. Social History: reports that he has never smoked. He has never used smokeless tobacco. Family History: Father of [place]; uncles heart disease Medications: Prior to Admission medications Medication Sig Start Date End Date Taking? Authorizing Provider ascorbic acid (Vitamin C) 1000 MG tablet Take 1,000 mg by mouth daily. Historical Provider, aspirin 81 MG EC tablet Take 81 mg by mouth daily. Historical Pr (more content not included)...[facility]04-20-2024 History and physical note* Lucas Florez APRN - [employer] - 06/03/2023 2:29 PM EDT Images from the original note were not included. [facility]: Cardiothoracic Surgery H&P PATIENT NAME: Chau Barron : 1940 (82 y.o.) TODAY'S DATE: 06/03/2023 DATE OF ADMISSION: 06/02/2023 5:32 PM Reason for Transfer: CABG evaluation Consulting Provider: Edmund Subjective: CC: MVCAD/NSTEMI HPI: 82 y.o. with pmHx of HLD, HTN, T2DM who was transffered from outside hospital for CABG consideration. Per paper chart brought with the patient, he developed midsternal chest pressure, coughing, burping, and sweating while riding his lawnmower. By the time the patient arrived to the ED - chest pressure had slightly improved. Cardiac enzymes were elevated and he was admitted as NSTEMI and Cardiology was consulted. Cardiac cath was then preformed which showed: Distal LM 60-70% stenosis left main bifurcating into LAD, ramus and left circumflex. LAD with ostial and proximal ~70%. Distal LAD around 95%, ostial LCx 70%, RCA large dominant , calcified with proximal RCA thrombus: JIMMY-3 flow inthe RCA. He was transferred to [facility] for CABG consideration. Currently patient resting in bed with noissues or concerns at this time. He denies any cardiac symptoms. A complete ROS was documented below. Review of Systems Constitutional: Negative for appetite change, diaphoresis, fatigue, fever and unexpected weight change. HENT: Negative for congestion and dental problem. Eyes: Negative for pain, redness and visual disturbance. Respiratory: Negative for cough, choking, chest tightness, shortness of breath and wheezing. Gastrointestinal: Negative for abdominal distention, abdominal pain, blood in stool, constipation, diarrhea, nausea and vomiting. Endocrine: Negative for cold intolerance and heat intolerance. Genitourinary: Negative for difficulty urinating and frequency. Musculoskeletal: Negative for arthralgias, back pain, gait problem and joint swelling. Skin: Negative for color change, pallor, rash and wound. Allergic/Immunologic: Negative for immunocompromised state. Neurological: Negative for dizziness, seizures, syncope, speech difficulty, weakness, light-headedness and numbness. Hematological: Does not bruise/bleed easily. Psychiatric/Behavioral: Negative for confusion, decreased concentration and sleep disturbance. The patient is not nervous/anxious. Allergies: Patient has no known allergies. Past Medical History: has a past medical history of Coronary artery disease, Diabetes mellitus (HCC), Hypercholesteremia,and Hypertension. Past Surgical History: has a past surgical history that includes Implant. Social History: reports that he has never smoked. He has never used smokeless tobacco. Family History: Father of [place]; uncles heart disease Medications: Prior to Admission medications Medication Sig Start Date End Date Taking? Authorizing Provider ascorbic acid (Vitamin C) 1000 MG tablet Take 1,000 mg by mouth daily. Historical Provider, aspirin 81 MG EC tablet Take 81 mg by mouth daily. Historical Provider, atorvastatin (Lipitor) 40 MG tablet Take 40 mg by mouth daily. Historical Provider, Cholecalciferol 25 MCG (1000 UT) chewable tablet Chew 25 mcg daily. Historical Provider, co-enzyme Q-10 30 MG capsule Take 30 mg by mouth daily. Historical Provider, metFORMIN, OSM, (Fortamet) 500 MG 24 hr tablet Take 500 mg by mouth with evening meal. Do not crush, chew, or split. Historical Provider, niacinamide 500 MG tablet Take 500 mg by mouth in the morning and 500 mg in the evening. Take with meals. Historical Provider, valsartan (Diovan) 80 MG tablet Take 80 mg by mouth daily. Historical Provider, Objective: Vitals: BP: 110/65, MAP (mmHg): 79, BP Method: Automatic Heart Rate: 63 Resp: 16 Temp: 36.1 C (97 F), Temp Source: Temporal BMI (Calculated): 34.25 Last BM Date: 06/01/23 Intake/Output Summary (Last 24 hours) at 06/03/2023 1430 Last data filed at 06/03/2023 1200 Gross per 24 hour Intake 930.38 ml Output -- Net 930.38 ml Physical Exam Constitutional: General: He is not in acute distress. Appearance: Normal appearance. HENT: Head: Normocephalic and atraumatic. Right Ear: External ear normal. Left Ear: External ear normal. Nose: Nose normal. Mouth/Throat: Lips: [place]. Dentition: Normal dentition. Tongue: No lesions. Tongue does not deviate from midline. Eyes: General: Lids are normal. Conjunctiva/sclera: Conjunctivae normal. Neck: Thyroid: No thyroid mass or thyromegaly. Trachea: Trachea normal. Cardiovascular: Rate and Rhythm: Normal rate and regular rhythm. Pulses: No decreased pulses. Heart sounds: Normal heart sounds. Heart sounds not distant. No murmur heard. No friction rub. Pulmonary: Effort: Pulmonary effort is normal. No accessory muscle usage. Breath sounds: Normal breath sounds and air entry. No stridor or decreased air movement. Abdominal: General: Bowel sounds are normal. Palpations: There is no mass. Tenderness: There is no abdominal tenderness. Hernia: No hernia is present. Musculoskeletal: Cervical back: Full passive range of motion without pain. No rigidity or crepitus. No pain with movement. Right lower leg: No edema. Left lower leg: No edema. Skin: General: Skin is warm. Capillary Refill: Capillary refill takes less than 2 seconds. Findings: No lesion, rash or wound. Comments: Color normal for ethnicity Neurological: Mental Status: He is alert. Psychiatric: Attention and Perception: Attention normal. Mood and Affect: Mood and affect normal. Behavior: Behavior is cooperative. Cognition and Memory: He does not exhibit impaired recent memory or impaired remote memory. Judgment: Judgment normal. Diagnostics: Reviewed in EMR Labs: Reviewed in EMR BMP: Recent Labs 06/02/23 1800 06/03/23 0148 NA 135 138 K 4.1 4.2 CL 105 107 CO2 21* 25 BUN 14 14 CREATININE 0.81 0.87 CALCIUM 9.5 9.4 MG 2.3 2.2 CBC: Recent Labs 06/02/23 1800 06/03/23 0148 WBC 11.0* 10.0 HGB 13.5 13.2 HCT 39.8* 38.2* PLT 229 210 MCV 93.6 91.4 RDW 13.4 13.4 Assessment: MVCAD/NSTEMI HTN T2DM HLD Plan: Continue Heparin gtt Nitro for CP ASA, statin and BB Preoperative orders placed Check ECHO, bedside spirometry, MRSA swab, and CT chest to assess aorta Patient wants surgical revascularization Plan Monday CABG JAYCE with Dr. Peterson Personally Reviewed: [x]Epic notes [x]Radiology studies [x]Labs [x]EKG [x]Other: Transfer records A total of 48 minutes were spent between the [id number] encounter, physical exam, reviewing the medical history, coordinating the patient's care, counseling/educating the patient, ordering medications/test/procedures, interpreting results and documenting clinical information in the patients electr on health record on the day of the encounter. The patient was seen and examined independently andrelevant data reviewed by myself. A full chart review was performed. Associated attestation - Reta Peterson MD - 06/04/2023 11:00 AM EDT DOS: 06/04/2023 I personally performed a face to face diagnostic evaluation on this patient. I agree with the findings and plan of care as documented by the [employer], there has been no change in the physical exam or findings unless otherwise noted below. 82 M with MVCAD Coronary artery disease: I discussed with him the indications, risks, benefits, and perioperative course of a coronary artery bypass grafting. I discussed alternatives including no intervention, medical therapy only, and percutaneous coronary intervention with medications. A surgical revascularization is recommended in his case. On my review of the coronary angiogram, he does have good targets and will need 3-4 vessel bypass grafts. He is quite functional and is of low risk. He is agreeable. CT chest and echocardiogram ordered. The risks of the procedure/s include but are not limited to, bleeding, infection, pneumonia, respiratory failure, prolonged Intensive Care Unit stay, multiorgan failure, renal failure needing temporary and/or permanent dialysis, cerebrovascular accident, pulmonary embolism, deep venous thrombosis, cardiac failure or ischemia or arrhythmia, and . A total of 80 minutes were spent between the face to face encounter, physical exam, reviewing the medical history, coordinating the patient's care, counseling/educating the patient, ordering prescript ions/medications/tests/procedures, interpreting results and documenting clinical information in thepatient's electronic health record on the day of the encounter. The patient was seen and examined independently and relevant data reviewed by myself. A full chart review was performed. Reta Peterson MD Cardiothoracic Surgery documented in this [facility]04-19-2024 Discharge summary Author Isidro Tirado [facility] June 02, 2023 1:54pm Note Date/Time June 02, 2023 1:5 2pm [facility] Medical Records Department [address] [place] [place] [place] [address] Instructions for Home/Discharge Instructions 06/02/23 1352 MR#: [id number] Acct: [id number] Name: CHAU BARRON Rep #:[id number] : 1940 82 From: Isidro doty DO PCP: Dr. Kishan Ford MD Status:AD M IN Discharge Instructions Follow Up Care Test Results: Test results from this visit will be discussed in further detail at your follow- up appointment, if applicable. Discharge Plan Admission Admit Date/Time: 06/02/23 00:05 Primary Reason for Your Visit: NSTEMI Attending Provider: Isidro Tirado Primary Care Provider: Kishan Ford Consulting Providers: Jerson Don; Mercy Snatos Discharge Orders/Prescriptions Prescriptions: Continued atorvastatin 40 MG tablet 40 mg PO QHS aspirin 81 MG tablet 81 mg PO DAILY@0800 coenzyme Q10 [Co Q-10] 50 MG capsule 30 mg PO DAILY niacinamide 500 MG tablet 500 mg PO DAILY metformin 500 MG tablet extended release 24 hr 500 mg PO BID Patient Comments: cholecalciferol (vitamin D3) [Vitamin D3] 25 mcg (1,000 unit) capsule 25 mcg PO DAILY ascorbic acid (vitamin C) [C-1000] 1,000 mg tablet 1 g PO DAILY Held valsartan 80 mg tablet 80 mg PO DAILY Hold Instructions: Resume on 06/12/23. Discontinued chlorhexidine gluconate 0.12 % mouthwash 15 ml PO TID Referrals / Follow Up: Kishan Ford MD [Primary Care Provider] - Disposition Disposition (needs filled in before D/C Order can be placed): Acute [facility] 06/02/23 6974<Electronically signed by Isidro Tirado DO>Isidro Tirado DO CC: Dr. Mercy Santos MD; Dr. Kishan Ford MD; Dr. Jerson Don MD ~ Signed [facility] Work Phone: [phone]) 294-456404-19-2024 Discharge summary Author Isidro Tirado [facility] June 02, 2023 3:22pm Note Date/Time June 02, 2023 1:5 4pm [facility] Medical Records Department [address] [place] [address] Discharge Summary 06/02/23 1354 MR#: [id number] Acct: [id number] Name: CHAU BARRON Rep #:[id number] : 1940 82 From: Isidro doty DO PCP: Dr. Kishan Ford MD Status:AD M IN Location: [facility] [id number] Providers Date of Admission: 06/02/23 Date of Discharge: 06/02/23 Primary Care Physician: Dr. Kishan Ford MD Consultations 06/02/23 00:29 Consult: Cardiology Routine Consulting Provider: Mercy Santos Reason for Consult: Non-STEMI EMERGENT Consult: No MD Notified: Yes Date Notified: 06/02/23 Time Notified: 00:07 Method of Notification: Verbal Reason For Visit: NON-STEMI Diagnosis Discharge Diagnosis (1) Non-ST elevation [place] (NSTEMI): Status: Acute Code(s): I21.4 - Non-ST elevation (NSTEMI) myocardial infarction (2) History of hypertension: Status: Acute Code(s): Z86.79 - Personal history of other diseases of the circulatory system (3) History of hypercholesterolemia: Status: Acute Code(s): Z86.39 - Personal history of other endocrine, nutritional and metabolic disease (4) Type 2 diabetes mellitus with hyperglycemia: Status: Acute Code(s): E11.65 - Type 2 diabetes mellitus with hyperglycemia Medications at Discharge Home Medications aspirin 81 mg tablet,delayed release 81 mg PO DAILY@0800 07/15/14 atorvastatin 40 mg tablet 40 mg PO QHS 07/15/14 coenzyme Q10 50 mg capsule (Co Q-10) 30 mg PO DAILY 07/15/14 metformin 500 mg tablet,extended release 24 hr 500 mg PO BID 07/15/14 niacinamide 500 mg tablet 500 mg PO DAILY 07/15/14 ascorbic acid (vitamin C) 1,000 mg tablet (C-1000) 1 g PO DAILY dietary supplement 06/02/23 cholecalciferol (vitamin D3) 25 mcg (1,000 unit) capsule (Vitamin D3) 25 mcg PO DAILY dietary supplement 06/02/23 valsartan 80 mg tablet 80 mg PO DAILY high blood pressure 06/02/23 Hospital Course Operations None Procedures Cardiac catheterization, EKG and - (Chest x-ray) Summary of Care Provided Minutes Spent on Discharge: 35 Hospital Course: Patient is an 82-year-old male who presented [facility] ED on the evening of 06/01/2023 with chest pain. Short hospital course as noted below. Patient was transferred to [facility] on afternoon of 06/01 for CABG evaluation. 1. NSTEMI Presented after an episode of chest pressure while lifting something heavy at home. Chest pain had largely resolved by the time he arrived to the ED. EKG showed sinus bradycardia with PACs, nonspecific intraventricular conduction block, no other ST changes. However, troponin trend 29 > 968 > 61578. ? Cardiology followed. S/p left heart cath on 06/01 showed severe multivessel disease involving the distal left main and bifurcation of LAD and circumflex. No stents placed. Recommendation from cardiology was for transfer to [facility] for CABG evaluation. Transferred in stable condition on afternoon of 06/01. Continued heparin drip, aspirin, statin on discharge. 2. New onset A-fib ? Cardiology noted new onset A-fib during and shortly after heart catheterization on 06/01. Recommended continuation of anticoagulation going forward. Was rate controlled, no need for beta-silvano for now. Chronic medical conditions: ? Obesity: BMI 34 on admit. Complicated hospital course, care and prognosis. ? Hyperlipidemia: Recent lipid panel on 04/24/2023 showed total cholesterol 128, LDL 50, HDL 40. Continue atorvastatin 40 mg daily. ? Hypertension: Stable post cath. Okay to continue home valsartan. ? Type 2 diabetes mellitus: Home regimen of metformin 500 mg twice daily. Recent A1c 6.9% on 04/23. Treated with sliding scale insulin while inpatient here. Total clinical time spent by myself addressing the patient's medical issues, reviewing all the data, and collaborating with patient's care team: 35 minutes. Physical Exam Const alert, oriented x3 and no apparent distress General Appearance: cooperative and comfortable HEENT normocephalic, head/scalp atraumatic, hearing grossly normal bilaterally, nasal mucous membranes and turbinates normal and moist oral mucous membranes Eyes PERRL, EOMs intact bilaterally and conjunctivae normal Neck full ROM Chest inspection of chest normal Resp normal respiratory effort, normal air movement, no use of accessory muscles and clear to auscultation bilaterally Cardio regular rate, regular rhythm, no murmurs and peripheral pulses 2+ throughout GI normal to inspection, nondistended, normoactive bowel sounds, soft to palpation,non-tender and non-distended Back/Spine normal ROM Extremity normal to inspection, full ROM and no pedal edema Skin no rashes or lesions noted Neuro no focal motor deficits and no sensory deficits noted Speech: speech normal Psych mental status grossly normal Weight / BMI Weight Weight: 124.2 kg Body Mass Index (BMI) 34.2 ABG / Lab / Microbiology Data 06/02/23 04:31 06/02/23 04:31 Laboratory: Laboratory Results - last 24 hr 06/01/23 20:35: WBC 11.9 H, RBC 4.33 L, Hgb 13.6, Hct 40.4, MCV 93.3, MCH 31.4, MCHC 33.7, RDW Std Deviation 45.0 H, RDW Coeff of Antonio 13.2, Plt Count 228, MPV 9.5, Immature Gran % (Auto) 0.500, Neut % (Auto) 63.2, Lymph % (Auto) 19.5, Vilas% (Auto) 11.8 H, Eos % (Auto) 4.2, Baso % (Auto) 0.8, Absolute Neuts (auto) 7.5,Absolute Lymphs (auto) 2.32, Nucleated RBC % 0, Sodium 137, Potassium 3.9, Chloride 106, Carbon Dioxide 27.0, Anion Gap 4 L, BUN 18, Creatinine 1.10, EstimCreat Clear Calc 73.73, Est GFR (MDRD) Af Amer 82, Est GFR (MDRD) Non-Af 68, BUN/Creatinine Ratio 16.4, Glucose 153 H, Calcium 9.1, Troponin I High Sens 29 06/01/23 22:35: Troponin I High Sens 968 H* 06/01/23 23:39: PT 14.3, INR 1.1, APTT 24.2 06/02/23 04:31: WBC 11.0, RBC 4.09 L, Hgb 12.7 L, Hct 38.1 L, MCV 93.2, MCH 31.1, MCHC 33.3, RDW Std Deviation 44.9 H, RDW Coeff of Antonio 13.2, Plt Count 210,MPV 9.7, Immature Gran % (Auto) 0.500, Neut % (Auto) 64.6, Lymph % (Auto) 19.8, [place] % (Auto) 11.7 H, Eos % (Auto) 2.8, Baso % (Auto) 0.6, Absolute Neuts (auto)7.1, Absolute Lymphs (auto) 2.18, Nucleated RBC % 0, Sodium 139, Potassium 3.9, Chloride 109 H, Carbon Dioxide 23.0, Anion Gap 7, BUN 16, Creatinine 0.92, EstimCreat Clear Calc 87.89, Est GFR (MDRD) Af Amer 102, Est GFR (MDRD) Non-Af 84, BUN/Creatinine Ratio 17.4, Glucose 128 H, Calcium 9.0, Troponin I High Sens 41420 H*, TSH 3.96 H 06/02/23 06:23: APTT 39.4 H, POC Glucose 136 H 06/02/23 12:06: POC Glucose 123 H Radiography Diagnostic Testing: Radiology Impression Chest X-Ray 06/01/23 20:09 IMPRESSION: Normal x-ray examination of the chest. Electronically Signed: Bienvenido Long MD at 21:15 EDT , Meaningful Use Info Meaningful Use Meaningful Use Diagnoses (Choose all that apply): AMI AMI/Post PCI/Angioplasty Aspirin given w/in 24hrs of arrival?: Yes ASA at discharge?: Yes Statins at discharge?: Yes Ayana/ARB at discharge?: Yes Beta Silvano at discharge?: No Reason Beta Silvano not ordered:: Hypotension Done w/ Acute [place] measure.: Yes Ischemic Stroke Statin Dosing Therapy Reference: STATIN DOSE THERAPY REFERENCE: * Patients > 75 years receive moderate or high dose statin therapy. * Patients 75 years or YOUNGER should receive HIGH intensity statin dose unless contraindicated. You will be required to document reason for non-treatment if statin daily dose does not meet guidelines. HIGH DOSE STATIN THERAPY DAILY Atorvastatin > than or = to 40 mg Rosuvastatin > than or = to 20 mg Amlodipine + Atorvastatin > than or = to 2.5/40 mg Ezetimibe + Simvastatin 10/80 mg Simvastatin 80mg Discharge Plan Admission Admit Date/Time: 06/02/23 00:05 Primary Reason for Your Visit: NSTEMI Attending Provider: Isidro Tirado Primary Care Provider: Kishan Ford Consulting Providers: Jerson Don; Mercy Santos Discharge Orders/Prescriptions Prescriptions: Continued atorvastatin 40 MG tablet 40 mg PO QHS aspirin 81 MG tablet 81 mg PO DAILY@0800 coenzyme Q10 [Co Q-10] 50 MG capsule 30 mg PO DAILY niacinamide 500 MG tablet 500 mg PO DAILY metformin 500 MG tablet extended release 24 hr 500 mg PO BID Patient Comments: cholecalciferol (vitamin D3) [Vitamin D3] 25 mcg (1,000 unit) capsule 25 mcg PO DAILY ascorbic acid (vitamin C) [C-1000] 1,000 mg tablet 1 g PO DAILY Held valsartan 80 mg tablet 80 mg PO DAILY Hold Instructions: Resume on 06/12/23. Discontinued chlorhexidine gluconate 0.12 % mouthwash 15 ml PO TID Referrals / Follow Up: Kishan Ford MD [Primary Care Provider] - Disposition Disposition (needs filled in before D/C Order can be placed): Acute Care Hospital Charges/Coding Visit Charges Inpatient E&M: 83820 Disch Hosp >30min 06/02/23 1522 <Electronically signed by Isidro Tirado DO> Cosigner Signature (if applicable): CC: Dr. Isidro Tirado DO; Dr. Kishan Ford MD~ Signed [facility] Work Phone: 1(292) 578-898004-19-2024 Consult note Author Mercy Santos [facility] June 02, 2023 11:45am Note Date/Time June 02, 2023 9:3 5am [facility] Medical Records Department [address] [place] [address] Consultation - Cardiology 06/02/23 0930 MR#: [id number] Acct: [id number] Name: CHAU BARRON SUSAN Rep #:[id number] : 1940 82 From: Mercy Santos MD PCP: Dr. Kishan Ford MD Status:AD M IN Location: [place] [address] Documented by User: Stephanie Park PA, PA 06/02/23 10:12 Assessment & Plan Assessment/Plan (1) Non-ST elevation [place] (NSTEMI): (2) History of hypertension: (3) History of hypercholesterolemia: (4) Type 2 diabetes mellitus with hyperglycemia: HPI Consult Data Date of Consult: 06/02/23 HPI Narrative HPI Narrative: CHAU BARRON, is a 82 M who presented to [facility] ER on 06/01/2023 with midsternal chest pressure, coughing, burping, and sweating while using his riding cook starch. His pressure was not as significant when he arrived in the ER. He does have a hx of hypertension, hyperlipidemia and diabetes. EKG demonstrated Sinus bradywith PACs, non specific intra ventricular conduction block. Troponins trended 29/968/65571. He was admitted to PCU for a NSTEMI. [facility] Medical History DM II (diabetes mellitus, type II), controlled HTN (hypertension) Hyperlipidemia Home Medications aspirin 81 mg tablet,delayed release 81 mg PO DAILY@0800 07/15/14 [History Last Taken Unknown] atorvastatin 40 mg tablet 40 mg PO QHS 07/15/14 [History Last Taken Unknown] coenzyme Q10 50 mg capsule (Co Q-10) 30 mg PO DAILY 07/15/14 [History Last Taken Unknown] metformin 500 mg tablet,extended release 24 hr 500 mg PO BID 07/15/14 [History Last Taken Unknown] niacinamide 500 mg tablet 500 mg PO DAILY 07/15/14 [History Last Taken Unknown] ascorbic acid (vitamin C) 1,000 mg tablet (C-1000) 1 g PO DAILY dietary supplement 06/02/23 [History Last Taken 06/01/23 12:00] chlorhexidine gluconate 0.12 % mouthwash 15 ml PO TID dental procedure 06/02/23 [History Last Taken 06/01/23 18:47] cholecalciferol (vitamin D3) 25 mcg (1,000 unit) capsule (Vitamin D3) 25 mcg PO DAILY dietary supplement 06/02/23 [History Last Taken 06/01/23] valsartan 80 mg tablet 80 mg PO DAILY high blood pressure 06/02/23 [History Last Taken 06/01/23 17:00] Allergy/AdvReac Type Severity Reaction Status Date / Time No Known Allergies Allergy Verified 06/01/23 20:08 Family History (Updated 06/02/23 @ 00:[address] Jerson Don MD) Other Heart disease Surgical History History of recent dental procedure Social History (Updated 06/02/23 @ 00:40 by Yani Aguilar) service: Yes Smoking Status: Never smoker ROS Constitutional Constitutional: Denies chills, fatigue, fever(s) or malaise Eyes Eyes: Denies blurry vision ENT HEENT: Denies headache(s) or nasal discharge Cardiovascular Cardiovascular: Reports chest pain; Denies dyspnea on exertion, lightheadedness or syncope Respiratory/Chest Respiratory/Chest: Denies cough, shortness of breath at rest or shortness of breath with exertion Gastrointestinal Gastrointestinal: Denies constipation, diarrhea, nausea or vomiting Genitourinary Genitourinary: Denies dysuria Neurologic Neurologic: Denies focal weakness, numbness or tremor(s) Physical Exam Narrative General: Alert, Oriented x3, Cooperative, No apparent distress HEENT: Atraumatic, PERRLA, EOMI, Normocephalic Oral: Moist Mucosa Neck: Supple, No JVD Lungs: Diminished, Normal air movement, No rhonchi, No wheeze, No rales Cardiovascular: Regular rate, Regular Rhythm, Normal S1, Normal S2, No murmurs Abdomen: Soft, Non Tender, Non-Distended, No Hepato-splenomegaly Extremities: No edema, Capillary Refill Less than 3 Seconds Skin: No rashes, No breakdown Musculoskeletal: No Tenderness to Palpation of Joints or Extremities Neurological: No focal neurological deficits, Motor Exam 5/5 strength throughout, Sensory exam intact to light touch and pain Psych/Mental Status: Normal Affect, Appropriate Risk Stratification Risk Stratification Applicable: Yes Age >/= 65: Yes >/= 3 CAD Risk Factors (HTN, HLD, DM, family hx of CAD, or current smoker): Yes Aspirin Use in the Past 7 Days: No Severe Angina (>/= episodes in 24 hours): Yes EKG ST Changes >/= 0.5mm: No Positive Cardiac Marker: Yes JIMMY Risk Stratification Score: 4 JIMMY % Risk: 20% Risk Objective Data Vital Signs: Vital Signs Temp Pulse Resp BP Pulse Ox O2 Del Method 97.6 F L 61 16 119/64 95 Room Air 06/02/23 07:51 06/02/23 07:51 06/02/23 07:51 06/02/23 07:51 06/02/23 07:51 06/02/23 07:51 Oxygen Delivery Method Room Air Weight: 273 lb 13.026 oz Body Mass Index (BMI) 34.2 Intake & Output: Intake and Output for Last 24 Hours 05/31/23 06/01/23 06/02/23 23:59 23:59 23:59 Intake Total 76.17 / 76.17 Balance 76.17 / 76.17 Lab / Micro Data 06/02/23 04:31 06/02/23 04:31 Labs: Laboratory Results - last 24 hr 06/01/23 20:35: WBC 11.9 H, RBC 4.33 L, Hgb 13.6, Hct 40.4, MCV 93.3, MCH 31.4, MCHC 33.7, RDW Std Deviation 45.0 H, RDW Coeff of Antonio 13.2, Plt Count 228, MPV 9.5, Immature Gran % (Auto) 0.500, Neut % (Auto) 63.2, Lymph % (Auto) 19.5, Vilas% (Auto) 11.8 H, Eos % (Auto) 4.2, Baso % (Auto) 0.8, Absolute Neuts (auto) 7.5,Absolute Lymphs (auto) 2.32, Nucleated RBC % 0, Sodium 137, Potassium 3.9, Chloride 106, Carbon Dioxide 27.0, Anion Gap 4 L, BUN 18, Creatinine 1.10, EstimCreat Clear Calc 73.73, Est GFR (MDRD) Af Amer 82, Est GFR (MDRD) Non-Af 68, BUN/Creatinine Ratio 16.4, Glucose 153 H, Calcium 9.1, Troponin I High Sens 29 06/01/23 22:35: Troponin I High Sens 968 H* 06/01/23 23:39: PT 14.3, INR 1.1, APTT 24.2 06/02/23 04:31: WBC 11.0, RBC 4.09 L, Hgb 12.7 L, Hct 38.1 L, MCV 93.2, MCH 31.1, MCHC 33.3, RDW Std Deviation 44.9 H, RDW Coeff of Antonio 13.2, Plt Count 210,MPV 9.7, Immature Gran % (Auto) 0.500, Neut % (Auto) 64.6, Lymph % (Auto) 19.8, Vilas % (Auto) 11.7 H, Eos % (Auto) 2.8, Baso % (Auto) 0.6, Absolute Neuts (auto)7.1, Absolute Lymphs (auto) 2.18, Nucleated RBC % 0, Sodium 139, Potassium 3.9, Chloride 109 H, Carbon Dioxide 23.0, Anion Gap 7, BUN 16, Creatinine 0.92, EstimCreat Clear Calc 87.89, Est GFR (MDRD) Af Amer 102, Est GFR (MDRD) Non-Af 84, BUN/Creatinine Ratio 17.4, Glucose 128 H, Calcium 9.0, Troponin I [place] 48584 H* 06/02/23 06:23: APTT 39.4 H, POC Glucose 136 H Cardiology Labs/Tests 06/01/23 20:35: WBC 11.9 H, RBC 4.33 L, Hgb 13.6, Hct 40.4, MCV 93.3, MCH 31.4, MCHC 33.7, Plt Count 228, MPV 9.5, Immature Gran % (Auto) 0.500, Neut % (Auto) 63.2, Lymph % (Auto) 19.5, Vilas % (Auto) 11.8 H, Eos % (Auto) 4.2, Baso % (Auto)0.8, Absolute Neuts (auto) 7.5, Nucleated RBC % 0, Sodium 137, Potassium 3.9, Chloride 106, Carbon Dioxide 27.0, Anion Gap 4 L, BUN 18, Creatinine 1.10, Est GFR (MDRD) Af Amer 82, Est GFR (MDRD) Non-Af 68, BUN/Creatinine Ratio 16.4, Glucose 153 H, Calcium 9.1 06/01/23 23:39: PT 14.3, INR 1.1, APTT 24.2 06/02/23 04:31: WBC 11.0, RBC 4.09 L, Hgb 12.7 L, Hct 38.1 L, MCV 93.2, MCH 31.1, MCHC 33.3, Plt Count 210, MPV 9.7, Immature Gran % (Auto) 0.500, Neut % (Auto) 64.6, Lymph % (Auto) 19.8, Vilas % (Auto) 11.7 H, Eos % (Auto) 2.8, Baso %(Auto) 0.6, Absolute Neuts (auto) 7.1, Nucleated RBC % 0, Sodium 139, Potassium 3.9, Chloride 109 H, Carbon Dioxide 23.0, Anion Gap 7, BUN 16, Creatinine 0.92, Est GFR (MDRD) Af Amer 102, Est GFR (MDRD) Non-Af 84, BUN/Creatinine Ratio 17.4,Glucose 128 H, Calcium 9.0 06/02/23 06:23: APTT 39.4 H Rhythm: EKG: ECHO: Radiography Diagnostic Testing: Radiology Impression Chest X-Ray 06/01/23 20:09 IMPRESSION: Normal x-ray examination of the chest. Electronically Signed: Bienvenido Long MD at 21:15 EDT , Documented by User: Dr. Mercy Santos MD 06/02/23 11:45 Assessment & Plan Assessment/Plan (1) Non-ST elevation IL (NSTEMI): (2) History of hypertension: (3) History of hypercholesterolemia: (4) Type 2 diabetes mellitus with hyperglycemia: PLAN: Cardiac care plan recommendations; 82-year-old patient history of diabetes mellitus, hypertension, hyperlipidemia Presented with severe retrosternal chest heaviness last night Has a clinical diagnosis of non-ST elevation IL with significant elevated cardiac biomarker with high sensitive troponins. Renal function was normal Echocardiographic evaluation LV function preserved Based on clinical presentation he was taken early to the Software Quality Analyst. 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 Will resume the treatment with heparin aspirin statin. No beta-silvano as she has a along both upper around 3.82-second on the environmental monitoring technician since then he remained stable. With no further pauses Also had a new onset atrial fibrillation. HPI Consult Data Date of Consult: 06/02/23 [facility] Medical History DM II (diabetes mellitus, type II), controlled HTN (hypertension) Hyperlipidemia Home Medications aspirin 81 mg tablet,delayed release 81 mg PO DAILY@0800 07/15/14 [History Last Taken Unknown] atorvastatin 40 mg tablet 40 mg PO QHS 07/15/14 [History Last Taken Unknown] coenzyme Q10 50 mg capsule (Co Q-10) 30 mg PO DAILY 07/15/14 [History Last Taken Unknown] metformin 500 mg tablet,extended release 24 hr 500 mg PO BID 07/15/14 [History Last Taken Unknown] niacinamide 500 mg tablet 500 mg PO DAILY 07/15/14 [History Last Taken Unknown] ascorbic acid (vitamin C) 1,000 mg tablet (C-1000) 1 g PO DAILY dietary supplement 06/02/23 [History Last Taken 06/01/23 12:00] chlorhexidine gluconate 0.12 % mouthwash 15 ml PO TID dental procedure 06/02/23 [History Last Taken 06/01/23 18:47] cholecalciferol (vitamin D3) 25 mcg (1,000 unit) capsule (Vitamin D3) 25 mcg PO DAILY dietary supplement 06/02/23 [History Last Taken 06/01/23] valsartan 80 mg tablet 80 mg PO DAILY high blood pressure 06/02/23 [History Last Taken 06/01/23 17:00] Allergy/AdvReac Type Severity Reaction Status Date / Time No Known Allergies Allergy Verified 06/01/23 20:08 Family History (Updated 06/02/23 @ 00:[address] Jerson Don MD) Other Heart disease Surgical History History of recent dental procedure Social History (Updated 06/02/23 @ 00:40 by Yani Aguilar) service: Yes Smoking Status: Never smoker Risk Stratification Age >/= 65: Yes JIMMY Risk Stratification Score: 4 JIMMY % Risk: 20% Risk Lab / Micro Data 06/02/23 04:31 06/02/23 04:31 06/02/23 1145 <Electronically signed by Mercy Santos MD> Cosigner Signature (if applicable): 06/02/23 1012 <Electronically signed by Stephanie MAHONEY PA> CC: Dr. Kishan Ford MD~ Signed [facility] Work Phone: 1(882) 278-295304-19-2024 Procedure [facility] 06-02-2023 History and physical note Author Jerson Don [facility] June 02, 2023 2:00am Note Date/Time June 02, 2023 12: 12am [facility] Medical Records Department [address] [place] [id number] H&P Exam - Hospitalist 06/02/23 0008 MR#: [id number] Acct: [id number] Name: CHAU BARRON Rep #:[id number] : 1940 82 From: Jerson macedo MD PCP: Dr. Kishan Ford MD Status:AD M IN Location: [facility] [id number] HPI - General General Date of Admission: 06/02/23 HPI Narrative CHAU BARRON, is a 82 M who presents to the hospital with an episode of chest pressure today. He was at home and lifted something heavy on the barn door and then was on his riding mower and when he finished all of his activity and he went inside the house his daughter commented that he did not look well and he started developing a midsternal chest pressure with no radiation. Denies any shortness of breath or lightheadedness with this episode. He presented to the ER and initial troponin was 29 but repeat troponin was almost the thousand, he states that his chest pressure has completely resolved. EKG in the ER was nonischemic. He normally takes aspirin however this was held secondary to a tooth implant procedure he had last week [facility] Medical History DM II (diabetes mellitus, type II), controlled HTN (hypertension) Hyperlipidemia Home Medications aspirin 81 mg tablet,delayed release 81 mg PO DAILY@0800 07/15/14 [History Last Taken Unknown] atorvastatin 40 mg tablet 40 mg PO QHS 07/15/14 [History Last Taken Unknown] coenzyme Q10 50 mg capsule (Co Q-10) 30 mg PO DAILY 07/15/14 [History Last Taken Unknown] metformin 500 mg tablet,extended release 24 hr 500 mg PO BID 07/15/14 [History Last Taken Unknown] niacinamide 500 mg tablet 500 mg PO DAILY 07/15/14 [History Last Taken Unknown] ascorbic acid (vitamin C) 1,000 mg tablet (C-1000) 1 g PO DAILY dietary supplement 06/02/23 [History Last Taken 06/01/23 12:00] chlorhexidine gluconate 0.12 % mouthwash 15 ml PO TID dental procedure 06/02/23 [History Last Taken 06/01/23 18:47] cholecalciferol (vitamin D3) 25 mcg (1,000 unit) capsule (Vitamin D3) 25 mcg PO DAILY dietary supplement 06/02/23 [History Last Taken 06/01/23] valsartan 80 mg tablet 80 mg PO DAILY high blood pressure 06/02/23 [History Last Taken 06/01/23 17:00] Allergy/AdvReac Type Severity Reaction Status Date / Time No Known Allergies Allergy Verified 06/01/23 20:08 Family History (Updated 06/02/23 @ 00:[address] Jerson Don MD) Other Heart disease Surgical History History of recent dental procedure Social History (Updated 06/02/23 @ 00:40 by Yani Aguilar) service: Yes Smoking Status: Never smoker ROS Constitutional Constitutional: Denies chills, fatigue, fever(s) or malaise Eyes Eyes: Denies blurry vision ENT HEENT: Denies headache(s) or nasal discharge Cardiovascular Cardiovascular: Reports chest pain; Denies dyspnea on exertion, lightheadedness or syncope Respiratory/Chest Respiratory/Chest: Denies cough, shortness of breath at rest or shortness of breath with exertion Gastrointestinal Gastrointestinal: Denies constipation, diarrhea, nausea or vomiting Genitourinary Genitourinary: Denies dysuria Neurologic Neurologic: Denies focal weakness, numbness or tremor(s) Psychiatric Psychiatric: Denies anxiety or depression Vital Signs Vital Signs Vital Signs: 06/01/23 20:06 06/01/23 20:38 06/01/23 20:41 Temperature 97.9 F Temperature Source Temporal Pulse Rate 60 Respiratory Rate 18 Respiratory Effort Normal Non-Labored Blood Pressure 158/87 H Blood Pressure Mean 110 Pulse Ox 96 Oxygen Delivery Method Room Air Room Air 06/01/23 20:53 06/01/23 21:00 06/01/23 22:00 Temperature Temperature Source Pulse Rate 58 L 67 56 L Respiratory Rate 12 12 14 Respiratory Effort Blood Pressure 151/84 H 119/58 L Blood Pressure Mean 105 74 Pulse Ox 92 91 92 Oxygen Delivery Method 06/01/23 23:00 06/01/23 23:57 06/02/23 00:00 Temperature 98.0 F Temperature Source Pulse Rate 67 75 72 Respiratory Rate 11 L 16 15 Respiratory Effort Blood Pressure 119/58 L 119/70 119/72 Blood Pressure Mean 78 86 87 Pulse Ox 97 94 93 Oxygen Delivery Method Room Air Room Air Weight Weight: 275 lb 8 oz Body Mass Index (BMI) 34.4 Physical Exam Narrative General: Alert, Oriented x3, Cooperative, No apparent distress HEENT: Atraumatic, PERRLA, EOMI, Normocephalic Oral: Moist Mucosa Neck: Supple, No JVD Lungs: Diminished, Normal air movement, No rhonchi, No wheeze, No rales Cardiovascular: Regular rate, Regular Rhythm, Normal S1, Normal S2, No murmurs Abdomen: Soft, Non Tender, Non-Distended, No Hepato-splenomegaly Extremities: No edema, Capillary Refill Less than 3 Seconds Skin: No rashes, No breakdown Musculoskeletal: No Tenderness to Palpation of Joints or Extremities Neurological: No focal neurological deficits, Motor Exam 5/5 strength throughout, Sensory exam intact to light touch and pain Psych/Mental Status: Normal Affect, Appropriate Results Lab / Micro Data 06/01/23 20:35 06/01/23 20:35 Labs: Laboratory Results - last 24 hr 06/01/23 20:35: WBC 11.9 H, RBC 4.33 L, Hgb 13.6, Hct 40.4, MCV 93.3, MCH 31.4, MCHC 33.7, RDW Std Deviation 45.0 H, RDW Coeff of Antonio 13.2, Plt Count 228, MPV 9.5, Immature Gran % (Auto) 0.500, Neut % (Auto) 63.2, Lymph % (Auto) 19.5, Vilas% (Auto) 11.8 H, Eos % (Auto) 4.2, Baso % (Auto) 0.8, Absolute Neuts (auto) 7.5,Absolute Lymphs (auto) 2.32, Nucleated RBC % 0, Sodium 137, Potassium 3.9, Chloride 106, Carbon Dioxide 27.0, Anion Gap 4 L, BUN 18, Creatinine 1.10, EstimCreat Clear Calc 73.73, Est GFR (MDRD) Af Amer 82, Est GFR (MDRD) Non-Af 68, BUN/Creatinine Ratio 16.4, Glucose 153 H, Calcium 9.1, Troponin I High Sens 29 06/01/23 22:35: Troponin I High Sens 968 H* 06/01/23 23:39: PT 14.3, INR 1.1, APTT 24.2 Imaging Radiology Impression Chest X-Ray 06/01/23 20:09 IMPRESSION: Normal x-ray examination of the chest. Electronically Signed: Bienvenido Long MD at 21:15 EDT Reading Location ID and State: [address] [place] [address] Tel , Service support , Assessment & Plan Assessment/Plan (1) Non-ST elevation IL (NSTEMI): PLAN: Plan 1. Non-STEMI/HLD ? Will start him on a heparin drip ? Will continue with aspirin and Lipitor ? Will consult cardiology ? Will obtain an echo in the morning 2. DM2 ? Will hold his home metformin ? Will place him on Accu-Cheks and the sign scale insulin ? Will monitor and make adjustments as necessary DVT: Heparin drip 76 minutes was spent on direct patient care, including documentation as well as chart review and collaboration with colleagues Charges/Coding Visit Charges Inpatient E&M: 92783 Init Hosp L3 06/02/23 0200 <Electronically signed by Jerson Don MD> Cosigner Signature (if applicable): CC: Dr. Kishan Ford MD; Dr. Jerson Don MD~ Signed [facility] Work Phone: [phone] 936-139004-19-2024 Discharge summary Author Curtis Lancaster [facility] June 01, 2023 11:42pm Note Date/Time June 01, 2023 8:3 0pm [facility] Medical Records Department [address] [place] [address] Emergency Department Summary 06/01/23 MR#: [id number] Acct: [id number] Name: CHAU BARRON Rep #:[id number] : 1940 82 From: Navya MAHONEY PCP: Dr. Kishan Ford MD Status:RE G ER Location: ED HPI <DENZEL Purdy - Last Filed: 06/01/23 21:55> History of Present Illness Chief Complaint: Chest Pain Narrative Narrative: 82-year-old male with PMH of HTN, HLD, DM2 states about 8 PM he was on his riding lawnmower when he developed midsternal chest pressure, coughing, burping and sweating. He states he was not exerting himself. He did not feel short of breath or have any pain in his jaw or extremities. He got off the mower and used an albuterol inhaler with no change in his symptoms. He states on arrival the chest pressure lessened but is still there. He denies cardiac history. He has never been a smoker. He has no history of DVT/PE or risk factors. He takes aspirin 81 mg daily but held it this week for a tooth implant procedure. PFSH <DENZEL Purdy - Last Filed: 06/01/23 21:55> [facility] Medical History (Updated 06/01/23 @ 23:[address] Curtis Lancaster MD) DM II (diabetes mellitus, type II), controlled HTN (hypertension) Hyperlipidemia Home Medications aspirin 81 mg tablet,delayed release 81 mg PO DAILY@0800 07/15/14 [History Last Taken Unknown] atorvastatin 40 mg tablet 40 mg PO QHS 07/15/14 [History Last Taken Unknown] coenzyme Q10 50 mg capsule (Co Q-10) 30 mg PO DAILY 07/15/14 [History Last Taken Unknown] metformin 500 mg tablet,extended release 24 hr 500 mg PO BID 07/15/14 [History Last Taken Unknown] niacinamide 500 mg tablet 500 mg PO DAILY 07/15/14 [History Last Taken Unknown] Allergy/AdvReac Type Severity Reaction Status Date / Time No Known Allergies Allergy Verified 06/01/23 20:08 Social History Smoking Status: Never smoker ROS <DENZEL Purdy - Last Filed: 06/01/23 21:55> ROS ED ROS Narrative Constitutional: Negative for fever, chills, malaise. CVS: Positive for chest pain. Negative for palpitations, syncope. Respiratory: Negative for shortness of breath. GI: Negative for abdominal pain, nausea, vomiting. EXAM <DENZEL Purdy - Last Filed: 06/01/23 21:55> Physical Exam Narrative Exam Narrative: CONST: Patient sitting in no acute distress. EYES: Normal inspection. NECK: Normal inspection. RESP: No respiratory distress, CTAB. CVS: Regular rate and rhythm, no murmur, no gallop. ABD: Soft and nontender, no guarding or rebound, nondistended. SKIN: Color normal, no rash, warm, dry, intact. EXTREMITIES: Normal appearance, no pedal edema. NEURO: Alert and answering questions appropriately. PSYCH: Normal affect. Const Vital Signs: 06/01/23 20:06 06/01/23 20:38 06/01/23 20:41 Temperature 97.9 F Temperature Source Temporal Pulse Rate 60 Respiratory Rate 18 Respiratory Effort Normal Non-Labored Blood Pressure 158/87 H Blood Pressure Mean 110 Pulse Ox 96 Oxygen Delivery Method Room Air Room Air 06/01/23 20:53 06/01/23 21:00 06/01/23 22:00 Temperature Temperature Source Pulse Rate 58 L 67 56 L Respiratory Rate 12 12 14 Respiratory Effort Blood Pressure 151/84 H 119/58 L Blood Pressure Mean 105 74 Pulse Ox 92 91 92 Oxygen Delivery Method 06/01/23 23:00 Temperature Temperature Source Pulse Rate 67 Respiratory Rate 11 L Respiratory Effort Blood Pressure 119/58 L Blood Pressure Mean 78 Pulse Ox 97 Oxygen Delivery Method Room Air <Dr. Curtis Lancaster MD - Last Filed: 06/01/23 23:42> Physical Exam Const Vital Signs: 06/01/23 20:06 06/01/23 20:38 06/01/23 20:41 Temperature 97.9 F Temperature Source Temporal Pulse Rate 60 Respiratory Rate 18 Respiratory Effort Normal Non-Labored Blood Pressure 158/87 H Blood Pressure Mean 110 Pulse Ox 96 Oxygen Delivery Method Room Air Room Air 06/01/23 20:53 06/01/23 21:00 06/01/23 22:00 Temperature Temperature Source Pulse Rate 58 L 67 56 L Respiratory Rate 12 12 14 Respiratory Effort Blood Pressure 151/84 H 119/58 L Blood Pressure Mean 105 74 Pulse Ox 92 91 92 Oxygen Delivery Method 06/01/23 23:00 Temperature Temperature Source Pulse Rate 67 Respiratory Rate 11 L Respiratory Effort Blood Pressure 119/58 L Blood Pressure Mean 78 Pulse Ox 97 Oxygen Delivery Method Room Air MDM <DENZEL Purdy - Last Filed: 06/01/23 21:55> MDM MDM Narrative Medical decision making narrative: History gathered from: Patient and spouse While riding lawnmower patient had an episode of chest pressure, sweating, coughing and burping. He continues to have persistent chest pressure. He is sitting on the bedside in no distress. BP is 158/87 with otherwise normal vitalsigns. His exam is benign. He was treated with aspirin 325 mg. EKG is sinus bradycardia at 59 bpm with no acute ischemic changes. Overall CBC and BMP unremarkable. First troponin is 29 and 2-hour troponin is ordered. CXR shows no acute process. Lab Data Attestation: I reviewed the patient's lab results. Labs: Laboratory Results - last 24 hr 06/01/23 06/01/23 20:35 22:35 WBC 11.9 H RBC 4.33 L Hgb 13.6 Hct 40.4 MCV 93.3 MCH 31.4 MCHC 33.7 RDW Std Deviation 45.0 H RDW Coeff of Antonio 13.2 Plt Count 228 MPV 9.5 Immature Gran % (Auto) 0.500 Neut % (Auto) 63.2 Lymph % (Auto) 19.5 Vilas % (Auto) 11.8 H Eos % (Auto) 4.2 Baso % (Auto) 0.8 Absolute Neuts (auto) 7.5 Absolute Lymphs (auto) 2.32 Nucleated RBC % 0 Sodium 137 Potassium 3.9 Chloride 106 Carbon Dioxide 27.0 Anion Gap 4 L BUN 18 Creatinine 1.10 Estim Creat Clear Calc 73.73 Est GFR (MDRD) Af Amer 82 Est GFR (MDRD) Non-Af 68 BUN/Creatinine Ratio 16.4 Glucose 153 H Calcium 9.1 Troponin I High Sens 29 968 H* Radiography Diagnostic Testing: Clinical Impression(s) from Imaging Studies Chest X-Ray 06/01/23 20:09 IMPRESSION: Normal x-ray examination of the chest. Electronically Signed: Bienvenido Long MD at 21:15 EDT , ED attending interpretation of 1-view chest x-ray shows cardiomegaly, no acute infiltrates edema or effusion. <Dr. Curtis Lancaster MD - Last Filed: 06/01/23 23:42> [facility] MDM Narrative Medical decision making narrative: History gathered from: Patient and spouse While riding lawnmower patient had an episode of chest pressure, sweating, coughing and burping. He continues to have persistent chest pressure. He is sitting on the bedside in no distress. BP is 158/87 with otherwise normal vitalsigns. His exam is benign. He was treated with aspirin 325 mg. EKG is sinus bradycardia at 59 bpm with no acute ischemic changes. Overall CBC and BMP unremarkable. First troponin is 29 and 2-hour troponin is ordered. CXR shows no acute process. I have personally performed a face to face assessment of the patient and have reviewed the BELKIS Note. I performed a substantive portion of the visit including all aspects of the following. My amezquita findings include: History is remarkable for chest pressure with diaphoresis. 10 minutes before hedeveloped the discomfort he and his lifted a heavy door. When this occurred he was on a riding mower. He became diaphoretic slightly short of breath pressure in his chest. He states he still has slight discomfort as of 20-30. He denies history of coronary disease. Does have history of hypertension for 20 years, hypercholesterolemia for 45 years and diabetes for 5. Patient denies orthopnea. He does have mild pedal edema which he was unaware of. He denies PND. He denies history of reflux or hiatal hernia. He denies black or maroon-colored stool. He denies fever, chills night sweats. He denies headache, visual, ocular auditory symptoms. The chest discomfort is mid chest does not radiate anywhere. He denies history of PE or DVT. He denies leg pain, swelling or discoloration. Exam is remarkable for a heavyset gentleman who appears in no distress. Very pleasant. Blood pressure is elevated. HEENT exam is unremarkable. Lungs are clear to auscultation. Heart is regular. Rate is normal. There is no murmur, gallop or rub. He has no reproducible chest pain. Is no crepitus subcutaneous air. Abdomen is soft nontender. There is no paraspinal megaly. Inspection of the back is normal. Patient's lower extremity exam reveals mild pitting edema. There is no asymmetry, discoloration, leg vein distention, palpable cords since on the distribution deep venous system. Medical Decision Making differential diagnosis is chest pain unknown etiology, need to evaluate cardiac versus noncardiac. Noncardiac would include GERD, pulmonary, peptic ulcer disease. His workup included EKG, chest x-ray and appropriate blood work. Other additions or changes: [None] Lab Data Lab results narrative: White count is slightly elevated with normal differential. This is nonspecific. Glucose is elevated 153 with normal CO2 anion gap. BUN and creatinine are normal. GFR is normal. First troponin is normal at 29. Labs: Laboratory Results - last 24 hr 06/01/23 06/01/23 20:35 22:35 WBC 11.9 H RBC 4.33 L Hgb 13.6 Hct 40.4 MCV 93.3 MCH 31.4 MCHC 33.7 RDW Std Deviation 45.0 H RDW Coeff of Antonio 13.2 Plt Count 228 MPV 9.5 Immature Gran % (Auto) 0.500 Neut % (Auto) 63.2 Lymph % (Auto) 19.5 Vilas % (Auto) 11.8 H Eos % (Auto) 4.2 Baso % (Auto) 0.8 Absolute Neuts (auto) 7.5 Absolute Lymphs (auto) 2.32 Nucleated RBC % 0 Sodium 137 Potassium 3.9 Chloride 106 Carbon Dioxide 27.0 Anion Gap 4 L BUN 18 Creatinine 1.10 Estim Creat Clear Calc 73.73 Est GFR (MDRD) Af Amer 82 Est GFR (MDRD) Non-Af 68 BUN/Creatinine Ratio 16.4 Glucose 153 H Calcium 9.1 Troponin I High Sens 29 968 H* Radiography Diagnostic Testing: Clinical Impression(s) from Imaging Studies Chest X-Ray 06/01/23 20:09 IMPRESSION: Normal x-ray examination of the chest. Electronically Signed: Bienvenido Long MD at 21:15 EDT Reading Location ID and State: [facility] / [place] Tel , Service support , EKG Initial EKG: Attestation: I personally reviewed and interpreted this EKG as follows: Interpretation: Sinus Bradycardia (Rate is 59. AL interval is 200 ms. Cures duration 126 ms which is prolonged. He has a nonspecific intraventricularconduction delay. QT interval is 420 ms. [place] is normal) Treatment and Re-Evaluation :: Patient did receive aspirin. Will anticoag with heparin. Call hospitalist for admission. <Dr. Curtis Lancaster MD - Last Filed: 06/01/23 23:42> Critical Care Time Critical Care Time: Yes Critical care time (excluding procedures): 30-74 minutes (31), Including time spent: (History, physical, documentation, review of prior records), Discussing w/Patient &/or Family/Aircraft Motor Mechanic, Discussing w/Consultants and Arranging Admission or Transfer Discharge Plan Dx/Rx/DC Orders Clinical Impression: Non-ST elevation [place] (NSTEMI), History of hypertension, History of hypercholesterolemia, Type 2 diabetes mellitus with hyperglycemia Disposition Disposition: Acute Care Hospital [facility] What to do if you have Problems For any increased pain, shortness of breath, bleeding, nausea or vomiting, chestpain, or any unexpected problems, contact your Primary Care Provider. Call [facility] ([phone]) or report to the closest Emergency Room. Call 911 if necessary. 06/01/232154 <Electronically signed by Navya MAHONEY> Cosigner Signature (if applicable): 06/01/23 2342 <Electronically signed by Yael CHAPMAN> CC: Dr. Kishan Ford MD ~ Signed [facility] Work Phone: [phone] Discharge summary Author Curtis Lancaster [facility] June 01, 2023 11:42pm Note Date/Time June 01, 2023 8:3 0pm [facility] Medical Records Department [address] [place] [address] Emergency Department Summary 06/01/23 MR#: [id number] Acct: [id number] Name: CHAU BARRON Rep #:[id number] : 1940 82 From: Navya MAHONEY PCP: Dr. Kishan Ford MD Status:RE G ER Location: ED HPI <DENZEL Purdy - Last Filed: 06/01/23 21:55> History of Present Illness Chief Complaint: Chest Pain Narrative Narrative: 82-year-old male with PMH of HTN, HLD, DM2 states about 8 PM he was on his riding lawnmower when he developed midsternal chest pressure, coughing, burping and sweating. He states he was not exerting himself. He did not feel short of breath or have any pain in his jaw or extremities. He got off the mower and used an albuterol inhaler with no change in his symptoms. He states on arrival the chest pressure lessened but is still there. He denies cardiac history. He has never been a smoker. He has no history of DVT/PE or risk factors. He takes aspirin 81 mg daily but held it this week for a tooth implant procedure. PFS <DENZEL Purdy - Last Filed: 06/01/23 21:55> [facility] Medical History (Updated 06/01/23 @ 23:[address] Curtis Lancaster MD) DM II (diabetes mellitus, type II), controlled HTN (hypertension) Hyperlipidemia Home Medications aspirin 81 mg tablet,delayed release 81 mg PO DAILY@0800 07/15/14 [History Last Taken Unknown] atorvastatin 40 mg tablet 40 mg PO QHS 07/15/14 [History Last Taken Unknown] coenzyme Q10 50 mg capsule (Co Q-10) 30 mg PO DAILY 07/15/14 [History Last Taken Unknown] metformin 500 mg tablet,extended release 24 hr 500 mg PO BID 07/15/14 [History Last Taken Unknown] niacinamide 500 mg tablet 500 mg PO DAILY 07/15/14 [History Last Taken Unknown] Allergy/AdvReac Type Severity Reaction Status Date / Time No Known Allergies Allergy Verified 06/01/23 20:08 Social History Smoking Status: Never smoker ROS <DENZEL Purdy - Last Filed: 06/01/23 21:55> ROS ED ROS Narrative Constitutional: Negative for fever, chills, malaise. CVS: Positive for chest pain. Negative for palpitations, syncope. Respiratory: Negative for shortness of breath. GI: Negative for abdominal pain, nausea, vomiting. EXAM <DENZEL Purdy - Last Filed: 06/01/23 21:55> Physical Exam Narrative Exam Narrative: CONST: Patient sitting in no acute distress. EYES: Normal inspection. NECK: Normal inspection. RESP: No respiratory distress, CTAB. CVS: Regular rate and rhythm, no murmur, no gallop. ABD: Soft and nontender, no guarding or rebound, nondistended. SKIN: Color normal, no rash, warm, dry, intact. EXTREMITIES: Normal appearance, no pedal edema. NEURO: Alert and answering questions appropriately. PSYCH: Normal affect. Const Vital Signs: 06/01/23 20:06 06/01/23 20:38 06/01/23 20:41 Temperature 97.9 F Temperature Source Temporal Pulse Rate 60 Respiratory Rate 18 Respiratory Effort Normal Non-Labored Blood Pressure 158/87 H Blood Pressure Mean 110 Pulse Ox 96 Oxygen Delivery Method Room Air Room Air 06/01/23 20:53 06/01/23 21:00 06/01/23 22:00 Temperature Temperature Source Pulse Rate 58 L 67 56 L Respiratory Rate 12 12 14 Respiratory Effort Blood Pressure 151/84 H 119/58 L Blood Pressure Mean 105 74 Pulse Ox 92 91 92 Oxygen Delivery Method 06/01/23 23:00 Temperature Temperature Source Pulse Rate 67 Respiratory Rate 11 L Respiratory Effort Blood Pressure 119/58 L Blood Pressure Mean 78 Pulse Ox 97 Oxygen Delivery Method Room Air <Dr. Curtis Lancaster MD - Last Filed: 06/01/23 23:42> Physical Exam Const Vital Signs: 06/01/23 20:06 06/01/23 20:38 06/01/23 20:41 Temperature 97.9 F Temperature Source Temporal Pulse Rate 60 Respiratory Rate 18 Respiratory Effort Normal Non-Labored Blood Pressure 158/87 H Blood Pressure Mean 110 Pulse Ox 96 Oxygen Delivery Method Room Air Room Air 06/01/23 20:53 06/01/23 21:00 06/01/23 22:00 Temperature Temperature Source Pulse Rate 58 L 67 56 L Respiratory Rate 12 12 14 Respiratory Effort Blood Pressure 151/84 H 119/58 L Blood Pressure Mean 105 74 Pulse Ox 92 91 92 Oxygen Delivery Method 06/01/23 23:00 Temperature Temperature Source Pulse Rate 67 Respiratory Rate 11 L Respiratory Effort Blood Pressure 119/58 L Blood Pressure Mean 78 Pulse Ox 97 Oxygen Delivery Method Room Air MDM <DENZEL Purdy - Last Filed: 06/01/23 21:55> [facility] Narrative Medical decision making narrative: History gathered from: Patient and spouse While riding lawnmower patient had an episode of chest pressure, sweating, coughing and burping. He continues to have persistent chest pressure. He is sitting on the bedside in no distress. BP is 158/87 with otherwise normal vitalsigns. His exam is benign. He was treated with aspirin 325 mg. EKG is sinus bradycardia at 59 bpm with no acute ischemic changes. Overall CBC and BMP unremarkable. First troponin is 29 and 2-hour troponin is ordered. CXR shows no acute process. Lab Data Attestation: I reviewed the patient's lab results. Labs: Laboratory Results - last 24 hr 06/01/23 06/01/23 20:35 22:35 WBC 11.9 H RBC 4.33 L Hgb 13.6 Hct 40.4 MCV 93.3 MCH 31.4 MCHC 33.7 RDW Std Deviation 45.0 H RDW Coeff of Antonio 13.2 Plt Count 228 MPV 9.5 Immature Gran % (Auto) 0.500 Neut % (Auto) 63.2 Lymph % (Auto) 19.5 Vilas % (Auto) 11.8 H Eos % (Auto) 4.2 Baso % (Auto) 0.8 Absolute Neuts (auto) 7.5 Absolute Lymphs (auto) 2.32 Nucleated RBC % 0 Sodium 137 Potassium 3.9 Chloride 106 Carbon Dioxide 27.0 Anion Gap 4 L BUN 18 Creatinine 1.10 Estim Creat Clear Calc 73.73 Est GFR (MDRD) Af Amer 82 Est GFR (MDRD) Non-Af 68 BUN/Creatinine Ratio 16.4 Glucose 153 H Calcium 9.1 Troponin I High Sens 29 968 H* Radiography Diagnostic Testing: Clinical Impression(s) from Imaging Studies Chest X-Ray 06/01/23 20:09 IMPRESSION: Normal x-ray examination of the chest. Electronically Signed: Bienvenido Long MD at 21:15 EDT , ED attending interpretation of 1-view chest x-ray shows cardiomegaly, no acute infiltrates edema or effusion. <Dr. Curtis Lancaster MD - Last Filed: 06/01/23 23:42> MDM MDM Narrative Medical decision making narrative: History gathered from: Patient and spouse While riding lawnmower patient had an episode of chest pressure, sweating, coughing and burping. He continues to have persistent chest pressure. He is sitting on the bedside in no distress. BP is 158/87 with otherwise normal vitalsigns. His exam is benign. He was treated with aspirin 325 mg. EKG is sinus bradycardia at 59 bpm with no acute ischemic changes. Overall CBC and BMP unremarkable. First troponin is 29 and 2-hour troponin is ordered. CXR shows no acute process. I have personally performed a face to face assessment of the patient and have reviewed the BELKIS Note. I performed a substantive portion of the visit including all aspects of the following. My amezquita findings include: History is remarkable for chest pressure with diaphoresis. 10 minutes before hedeveloped the discomfort he and his lifted a heavy door. When this occurred he was on a riding mower. He became diaphoretic slightly short of breath pressure in his chest. He states he still has slight discomfort as of 20-30. He denies history of coronary disease. Does have history of hypertension for 20 years, hypercholesterolemia for 45 years and diabetes for 5. Patient denies orthopnea. He does have mild pedal edema which he was unaware of. He denies PND. He denies history of reflux or hiatal hernia. He denies black or maroon-colored stool. He denies fever, chills night sweats. He denies headache, visual, ocular auditory symptoms. The chest discomfort is mid chest does not radiate anywhere. He denies history of PE or DVT. He denies leg pain, swelling or discoloration. Exam is remarkable for a heavyset gentleman who appears in no distress. Very pleasant. Blood pressure is elevated. HEENT exam is unremarkable. Lungs are clear to auscultation. Heart is regular. Rate is normal. There is no murmur, gallop or rub. He has no reproducible chest pain. Is no crepitus subcutaneous air. Abdomen is soft nontender. There is no paraspinal megaly. Inspection of the back is normal. Patient's lower extremity exam reveals mild pitting edema. There is no asymmetry, discoloration, leg vein distention, palpable cords since on the distribution deep venous system. Medical Decision Making differential diagnosis is chest pain unknown etiology, need to evaluate cardiac versus noncardiac. Noncardiac would include GERD, pulmonary, peptic ulcer disease. His workup included EKG, chest x-ray and appropriate blood work. Other additions or changes: [None] Lab Data Lab results narrative: White count is slightly elevated with normal differential. This is nonspecific. Glucose is elevated 153 with normal CO2 anion gap. BUN and creatinine are normal. GFR is normal. First troponin is normal at 29. Labs: Laboratory Results - last 24 hr 06/01/23 06/01/23 20:35 22:35 WBC 11.9 H RBC 4.33 L Hgb 13.6 Hct 40.4 MCV 93.3 MCH 31.4 MCHC 33.7 RDW Std Deviation 45.0 H RDW Coeff of Antonio 13.2 Plt Count 228 MPV 9.5 Immature Gran % (Auto) 0.500 Neut % (Auto) 63.2 Lymph % (Auto) 19.5 Vil[place] % (Auto) 11.8 H Eos % (Auto) 4.2 Baso % (Auto) 0.8 Absolute Neuts (auto) 7.5 Absolute Lymphs (auto) 2.32 Nucleated RBC % 0 Sodium 137 Potassium 3.9 Chloride 106 Carbon Dioxide 27.0 Anion Gap 4 L BUN 18 Creatinine 1.10 Estim Creat Clear Calc 73.73 Est GFR (MDRD) Af Amer 82 Est GFR (MDRD) Non-Af 68 BUN/Creatinine Ratio 16.4 Glucose 153 H Calcium 9.1 Troponin I High Sens 29 968 H* Radiography Diagnostic Testing: Clinical Impression(s) from Imaging Studies Chest X-Ray 06/01/23 20:09 IMPRESSION: Normal x-ray examination of the chest. Electronically Signed: Bienvenido Long MD at 21:15 EDT , EKG Initial EKG: Attestation: I personally reviewed and interpreted this EKG as follows: Interpretation: Sinus Bradycardia (Rate is 59. AL interval is 200 ms. Cures duration 126 ms which is prolonged. He has a nonspecific intraventricularconduction delay. QT interval is 420 ms. [place] is normal) Treatment and Re-Evaluation :: Patient did receive aspirin. Will anticoag with heparin. Call hospitalist for admission. <Dr. Curtis Lancaster MD - Last Filed: 06/01/23 23:42> Critical Care Time Critical Care Time: Yes Critical care time (excluding procedures): 30-74 minutes (31), Including time spent: (History, physical, documentation, review of prior records), Discussing w/Patient &/or Family/Aircraft Motor Mechanic, Discussing w/Consultants and Arranging Admission or Transfer Discharge Plan Dx/Rx/DC Orders Clinical Impression: Non-ST elevation IL (NSTEMI), History of hypertension, History of hypercholesterolemia, Type 2 diabetes mellitus with hyperglycemia Disposition Disposition: [facility] What to do if you have Problems For any increased pain, shortness of breath, bleeding, nausea or vomiting, chestpain, or any unexpected problems, contact your Primary Care Provider. Call [facility] ([phone]) or report to the closest Emergency Room. Call 911 if necessary. 06/01/232154 <Electronically signed by Navya MAHONEY> Cosigner Signature (if applicable): 06/01/23 2342 <Electronically signed by Yael CHAPMAN> CC: Dr. Kishan Ford MD ~ Signed [facility] Work Phone: Evaluation noteNo assessment information available [facility] Work Phone: Evaluation note* Diagnosis Onset Date Resolution Status History of hypercholesterolemia acute History of hypertension acut e Non-ST elevation IL (NSTEMI) acute Type 2 diabetes mellitus with hyperglycemia acute [facility] Work Phone: Evaluation note* Diagnosis CAD in [place] artery- Primary CAD in [place] artery Atherosclerotic heart disease of [place] coronary artery without angina pectoris Solitary pulmonary nodule S/P CABG (coronary artery bypass graft) Postsurgical aortocoronary bypass status [facility] S/P CABG (coronary artery bypass graft)- Primary Postsurgical aortocoronary bypass status Hypertension, unspecified type [facility] Diagnosis S/P CABG (coronary artery bypass graft)- Primary Postsurgical aortocoronary bypass status Hypertension, unspecified type [facility] Diagnosis S/P CABG (coronary artery bypass graft)- Primary Postsurgical aortocoronary bypass status Hypertension, unspecified type Wound cellulitis documented in this encounter [facility] for referral (narrative)No reason for referral information availableR[facility] Work Phone: Summary Purpose Family History No Family History Records Found Relationship Condition Age at Onset Recorded Date/T marcelle Not Specified Cardiac disease Unknown Advance Directives No Advanced Directives Records Found Advance Directive Response Recorded Date/ Time Advance Directives Yes August 29 11:18am Living Will Yes August 29, 2014 11:18am Power of [employer] Yes August 29 5 11:18am Advance Directive Response Recorded Date/ Time Advance Directives Yes August 29 10:18am Living Will Yes August 29, 2014 10:18am Power of [employer] Yes August 29 5 10:18am Advance Directive Response Recorded Date/ Time Advance Directives Yes August 29 11:18am Living Will No June 01, 2023 8:41pm Power of [employer] No May 31 8:41pm Advance Directive Response Recorded Date/ Time Name of Medical Power of Short Range [employer] Renu Barron and Claudia Barron June 02, 2023 12:29am Advance Directives Yes August 29 11:18am Living Will Yes June 02, 2023 12:29am Power of [employer] Yes June 01 12:29am Latest Code Status on File Code Status Date Activated Date Inactivated Comments Full Code 06/02/2023 5:35 PM 06/13/2023 7:16 PM Latest Code Status on File Code Status Date Activated Date Inactivated Comments Full Code 06/02/2023 5:35 PM 06/13/2023 7:16 PM Date Activated Date Inactivated Comments 06/02/2023 5:35 PM 06/13/2023 7:16 PM Advance Directive Response Recorded Date/ Time Living Will Yes September 06, 2023 10:29am Power of [employer] Yes September 05 10:29am Advance Directives Yes August 29 11:18am Advance Directive Response Recorded Date/ Time Living Will Yes September 06, 2023 10:29am Do you have a Healthcare Power of Short Range [employer]? Yes September 06, 2023 10:29am Advance Directives Yes August 29 11:18am Advance Directive Response Recorded Date/ Time Advance Directives Yes August 29 11:18am Chief Complaint and Reason for Visit Chief Complaint Admit Date 3 M FU March 13, 2024 1 0:54am LT LEG PAIN, SWELLING, REDNESS June 13, 2024 3:55pm Reason for Visit Admit Date Hyperlipidemia March 13, 2024 1 0:54am CAD (coronary atherosclerotic disease) J anuary 2024 10:54am Cellulitis of left lower leg February 10:54am DM II (diabetes mellitus, type II), cont rolled March 13, 2024 10:54am HTN (hypertension) March 13, 2024 1 0:54am Chief Complaint DECREASED PEDAL PULS ES Chief Complaint DECREASED PEDAL PULS ES EORDER Chief Complaint 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 Chief Complaint 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 NON-STEMI Reason for Visit History of hyperchol esterolemia History of hypertension Non-ST elevation IL (NSTEMI) Type 2 diabetes mellitus with hyperglycemia Chief Complaint 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 NON-STEMI NON-STEMI NON-STEMI Reason for Visit History of hyperchol esterolemia History of hypertension Non-ST elevation IL (NSTEMI) Type 2 diabetes mellitus with hyperglycemia Chief Complaint Admit Date 3 M FU March 13, 2024 1 0:54am Chief Complaint Admit Date LT LEG PAIN, SWELLING, REDNESS June 13, 2024 3:55pm 6 M FU July 05, 2024 10:31 am Reason for Visit Admit Date Aortic valve stenosis July 05, 2024 10: 31am Edema of left lower extremity July 05, 2024 10:31am Hyperlipidemia July 05, 2024 10:31 am CAD (coronary atherosclerotic disease) M ay 2024 10:31am HTN (hypertension) July 05, 2024 10:31 am Additional Source Comments (unrecognized sect ion and content) No Status Records FoundNo Status Records FoundNo Status Records Found INFORMATION SOURCE (unrecogn ized section and content) DATE CREATED AUTHOR 08/08/2017 [facility] [place] DATE CREATED AUTHOR AUTHOR'S ORGANIZ ATION 08/13/2023 [facility] DATE CREATED AUTHOR AUTHOR'S ORGANIZ ATION 12/18/2024 [facility] Goals (unrecognized section and content) Goals may be documented in a n alternate sectionGoals may be documented in an alternate sectionGoals may be documented in an alternate sectionGoals may be documented in an alternate sectionGoals may be documented in an alternate sectionGoals may be documented in an alternate sectionGoals may be documented in an alternate sectionGoals may be documented in an alternate sectionGoals may be documented in an alternate sectionGoals may be documented in an alternate sectionGoals may be documented in an alternate section Care Teams (unrecognized sec tion and content) Team Status: Active Member Role Status Dates Dr. Kishan Ford MD Family Provider Active Dr. Kishan Ford MD Primary Care Provider Active Team Status: Inactive Member Role Status Dates Dr. Kishan Ford MD Primary Care Pr ovider, Attending Provider, Referring Provider Active Team Status: Active Member Role Status Dates Dr. Kishan Ford MD Primary Care Provider Active Dr. Chiki Medrano MD Attending Provider Active Team Status: Active Member Role Status Dates Dr. Kishan Ford MD Primary Care Provider, Referr ing Provider Active Dr. Chiki Medrano MD Attending Provider Active Team Status: Inactive Member Role Status Dates Dr. Kishan Ford MD Primary Care Provider, Attend ing Provider Active Team Status: Active Member Role Status Dates Dr. Kishan Ford MD Primary Care Provider Active Dr. Curtis Lancaster MD Emergency Provider Active Dr. Jerson Don MD Admit Provider, Attending Provider Active Team Status: Active Member Role Status Dates Dr. Kishan Ford MD Primary Care Provider Active Dr. Curtis Lancaster MD Emergency Provider Active Dr. Jerson Don MD Admit Provi geri, Attending Provider, Other Provider Active Team Status: Active Member Role Status Dates Dr. Kishan Ford MD Primary Care Provider Active Dr. Curtis Lancaster MD Emergency Provider Active Dr. Jerson Don MD Admit Provider, Other Pro vider Active Dr. Isidro Tirado , DO Other Provider Active Dr. Mercy Santos MD Attending Provider, Other Provid er Active Team Status: Inactive Member Role Status Dates Dr. Kishan Ford MD Primary Care Provider Active Dr. Curtis Lancaster MD Emergency Provider Active Dr. Jerson Don MD Admit Provider, Other Pro vider Active Dr. Isidro Tirado , DO Attending Provider Active Dr. Mercy Santos MD Other Provider Active Block Sawyer Relationship Specialty Start Date End Date Kishan Ford MD [address] [place] [phone] PCP - General Family Medicine 06/02/23 [place]ixa Al radio message routerMachine Sole Leveler Bagging Salvager 06/06/23 Block Sawyer Relationship Specialty Start Date End Date Kishan Ford MD [address] [place] [phone] PCP - General Family Medicine 06/02/23 [place] radio message routerMachine Sole Leveler Bagging Salvager 06/06/23 Block Sawyer Relationship Specialty Start Date End Date Kishan Ford MD [address] [place] [phone] PCP - General Family Medicine 06/02/23 [place] Al radio message routerMachine Sole Leveler Bagging Salvager 06/06/23 Block Sawyer Relationship Specialty Start Date End Date Kishan Ford MD [address] [place] [phone] PCP - General Family Medicine 06/02/23 [place] Al, radio message routerMachine Sole Leveler Bagging Salvager 06/06/23 Block Sawyer Relationship Specialty Start Date End Date Kishan Ford MD [address] [place] [phone] PCP - General Family Medicine 06/02/23 [place] radio message routerMachine Sole Leveler Bagging Salvager 06/06/23 Block Sawyer Relationship Specialty Start Date End Date Kishan Ford MD [address] [place] [phone] PCP - General Family Medicine 06/02/23 Block Sawyer Relationship Specialty Start Date End Date Kisahn Ford MD [address] [place] [phone] PCP - General Family Medicine 06/02/23 Team Status: Inactive Member Role Status Dates Dr. Kishan Ford MD Primary Care Provider Active Start: March 13, 2024 End: March 13, 2024 Dr. Kishan Ford MD Referring Provider Active Start: March 13, 2024 End: March 13, 2024 Kishan Estrada NP, BOX FOLDING MACHINE OPERATOR-C Attending Provider Active S tart: March 13, 2024 End: March 13, 2024 Team Status: Inactive Member Role Status Dates Dr. Kishan Ford MD Primary Care Provider Active Start: April 17, 2024 End: April 17, 2024 Dr. Kishan Ford MD Attending Provider Active Start: April 17, 2024 End: April 17, 2024 Dr. Kishan Ford MD Referring Provider Active Start: April 17, 2024 End: April 17, 2024 Team Status: Active Member Role Status Dates Dr. Kishan Ford MD Primary Care Provider Active Team Status: Inactive Member Role Status Dates Dr. Kishan Ford MD Primary Care Provider Active Start: June 13, 2024 End: June 13, 2024 Dr. Kishan Ford MD Attending Provider Active Start: June 13, 2024 End: June 13, 2024 Dr. Kishan Ford MD Referring Provider Active Start: June 13, 2024 End: June 13, 2024 Team Status: Active Member Role Status Dates Dr. Kishan Ford MD Primary Care Provider Active Start: June 13, 2024 Dr. Kishan Ford MD Referring Provider Active Start: June 13, 2024 Dr. Chiki Medrano MD Attending Provider Active S tart: June 13, 2024 Team Status: Inactive Member Role Status Dates Dr. Kishan Ford MD Primary Care Provider Active Start: July 05, 2024 End: July 05, 2024 Dr. Kishan Ford MD Referring Provider Active Start: July 05, 2024 End: July 05, 2024 Dr. Mat Stallings MD Attending Provider Active Start: July 05, 2024 End: July 05, 2024 Team Status: Inactive Member Role Status Dates Dr. Kishan Ford MD Primary Care Provider Active Start: July 15, 2024 End: July 15, 2024 Dr. Kishan Ford MD Attending Provider Active Start: July 15, 2024 End: July 15, 2024 Dr. Kishan Ford MD Referring Provider Active Start: July 15, 2024 End: July 15, 2024 Reason for Visit (unrecogniz ed section and content) Specialty Diagnoses / Procedures Referred By Contac t Referred To Contact Diagnoses CAD in [place] artery Coronary Artery Disease Procedures - Reta Peterson MD [address] [place] [address] [address] [place] [address] Referral ID Status Reason Start Date Expiration Date Visits Re quested Visits Authorized [id number] 1 Reason Onset Date Comments BPCI Outreach 06/19/2023 Reason Comments Follow-up Reason Onset Date Comments Follow-up 07/13/2023 Reason Onset Date Comments Wound Infection 06/23/2023 Reason Comments Med Refill Scheduled Active and Recently Administ ered Medications (unrecognized section and content) Medication Order 06/11/2023 06/12/2023 06/13/2023 acetaminophen (Tylenol) tablet 1,000 mg 1,000 mg, Oral, Every 8 hours, First dose on Mon06/06/23 at 1230, Recovery [facility] On Unit 0422 (Given - Provider: Sharon Cevallos RN)1230 (Not Given - Provider: Krista Knapp RN - Reason: Patient/family refused)2321 (Given - Provider: Tre White RN) 0600 (Not Given - Provider: Tre White RN - Reason: Patient/family refused)1202 (Given - Provider: Ann Willard, LORY)2025 (Given - Provider: Tre White RN) 0430 (Not Given - Provider: Tre White RN - Reason: Patient/family refused)1225 (Given - Provider: Chiki Hoffmann, LORY) aspirin EC tablet 81 mg 81 mg, Oral, Daily, First dose on Mon06/07/23 at 0900, Do not crush, chew, or split. 0814 (Given - Provider: Krista Knapp RN) 0803 (Given - Provider: Ann Willard RN) 0829 (Given - Provider: Chiki Hoffmann, LORY) atorvastatin (Lipitor) tablet 80 mg (CANCELED) 80 mg, Oral, Daily, First dose (after last modification) on Mon06/07/23 at 0900 0814 (Given - Provider: Krista Knapp RN) 0803 (Given - Provider: Ann Willard, LORY) chlorhexidine (Peridex) 0.12 % solution 15 mL 15 mL, Mouth/Throat, 2 times daily, First dose on Mon06/06/23 at 1230, For 7 days, Recovery & On Unit, Rinse and spit. Do not swallow. 0816 (Not Given - Provider: Krista Knapp RN - Reason: Patient/family refused)2028 (Given - Provider: Tre White RN) 08 (Given - Provider: Ann Willard RN)2100 (Not Given - Provider: Tre White RN - Reason: Patient/family refused) furosemide (Lasix) injection 40 mg 40 mg, IntraVENous, 2 times daily, First dose (after last modification) on Mon06/10/23 at 1700 0814 (Given - Provider: Krista Knapp RN)1647 (Given - Provider: Krista nKapp RN) 0803 (Given - Provider: Ann Willard RN)1706 (Given - Provider: Ann Willard RN) 0828 (Given - Provider: Chiki Hoffmann, LORY)1700 (Canceled Entry - Provider: Automatic Discharge Provider - Comment: Automatically canceled at discontinue of medication order) furosemide (Lasix) tablet 40 mg 40 mg, Oral, Daily, First dose on Mon06/13/23 at 0900 0828 (Given - Provid er: Chiki Hoffmann RN) heparin injection 5,000 Units 5,000 Units, SubCUTAneous, 2 times daily, First dose on Mon06/07/23 at 0900 0814 (Given - Provider: Krista Knapp RN)202 (Given - Provider: Tre White RN) 08 (Given - Provider: Ann Willard RN)2100 (Not Given - Provider: Tre White RN - Reason: Patient/family refused) 0828 (Given - Provider: Chiki Hoffmann, LORY) Insulin Lispro (Humalog) injection 0-6 Units 0-6 Units, SubCUTAneous, 3 times daily with meals, First dose on Mon06/09/23 at 0800, Low dose Sliding scale: <150 = 0 unit 151-200 = 1 unit 201-250 = 2 units 251-300 = 3 units 301-350 = 4 units 351-400 = 5 units > 400 = 6 units and call endocrine 0800 (Not Given - Provider: Krista Knapp RN - Reason: Other - Comment: pt did not wait to have glucose checked instructed him to have us check before lunch)1200 (Not Given - Provider: Krista Knapp RN - Reason: Order parameters not met)1649 (Given - Provider: Krista Knapp RN) 0800 (Not Given - Provider: Ann Willard RN - Reason: Order parameters not met - Comment: BGT 129)1228 (Given - Provider: Ann Willard RN - Comment: BGT 153)1700 (Not Given - Provider: Ann Willard RN - Reason: Order parameters not met) 0800 (Not Given - Provider: Chiki Hoffmann RN - Reason: See Provider Order)1226 (Given - Provider: Chiki Hoffmann RN)1700 (Canceled Entry - Provider: Automatic Discharge Provider - Comment: Automatically canceled at discontinue of medication order) Lidocaine 4 % patch 1 patch 1 patch, Topical, Administer over 12 Hours, Daily, First dose on Mon06/06/23 at 1230, Recovery & On Unit, Cut in half and place on both sides of the incision. Patch may remain in place for up to 12 hours in any 24 hour period. 0900 (Not Given - Provider: Krista Knapp RN - Reason: Patient/family refused) 08 (Medication Applied - Provider: Ann Willard RN)2002 (Medication Removed - Provider: Tre White RN) 08 (Medication Applied - Provider: Chiki Hoffmann RN)1700 (Due: Medication Removed - Provider: Automatic Discharge Provider - Comment: Time automatically adjusted from order being discontinued) metoprolol tartrate (Lopressor) tablet 12.5 mg (CANCELED) 12.5 mg, Oral, 2 times daily, First dose on 06/10/23 at 1115, Hold for SBP less than 105 and/or MAPs less than 65 and/or HR less than 60 0814 (Given - Provider: Krista Knapp RN) metoprolol tartrate (Lopressor) tablet 25 mg 25 mg, Oral, 2 times daily, First dose (after last modification) on Mon06/11/23 at 2100, Hold for SBP less than 105 and/or MAPs less than 65 and/or HR less than 60 2028 (Given - Provider: Tre White RN) 08 (Given - Provider: Ann Willard RN)2025 (Given - Provider: Tre White RN) 0828 (Given - Provider: Chiki Hoffmann RN) pantoprazole (ProtoNix) EC tablet 40 mg 40 mg, Oral, Daily before breakfast, First dose on Gisella 06/08/23 at 0600, Do not crush, chew, or split. 0422 (Given - Provider: Sharon Cevallos RN) 0600 (Not Given - Provider: Tre White RN - Reason: Patient/family refused) 0600 (Not Given - Provider: Tre White RN - Reason: Patient/family refused) polyethylene glycol (PEG) 3350 (Miralax) packet 17 g 17 g, Oral, Daily, First dose on Mon06/06/23 at 1230, Recovery & On Unit, Bowel Regimen - for prevention of constipation. 0816 (Given - Provider: Krista Knapp RN) 0900 (Not Given - Provider: Ann Willard RN - Reason: Patient/family refused) 08 (Given - Provider: Chiki Hoffmann, RN) senna-docusate sodium (Senokot-S) 8.6-50 MG tablet 2 tablet 2 tablet, Oral, Nightly, First dose on Mon06/06/23 at 2100, Recovery & On Unit, Bowel Regimen - for prevention of constipation. 2028 (Given - Provider: Tre White RN) 2099 (Not Given - Provider: Tre White RN - Reason: Patient/family refused) sodium chloride 0.9% (NS) flush 10 mL 10 mL, IntraVENous, Every 12 hours scheduled (2 times per day), First dose on Mon06/06/23 at 2100, Recovery & On Unit 0900 (Given - Provider: Krista Knapp RN)2099 (Given - Provider: Tre White RN) 09 (Given - Provider: Ann Willard, LORY)2100 (Given - Provider: Tre White RN) 09 (Not Given - Provider: Chiki Hoffmann, RN - Reason: Contraindicated) PRN Medication Order 06/11/2023 06/12/2023 06/13/2023 calcium gluconate 2000 mg in 100 mL IVPB premix 2,000 mg, IntraVENous, at 50 mL/hr, Administer over 2 Hours, PRN, ionized calcium less than 4.3, Starting on Mon06/06/23 at 1216, Recovery & On Unit, Give 2000 mg for ionized calcium less than 4.3 premix bag dextrose 5 % infusion 100 mL/hr, IntraVENous, PRN, Blood sugar less than 70mg/dL, Starting on Mon06/06/23 at 1216, Recovery & On Unit, Start infusion following administration of dextrose 50% or glucagon. dextrose 50 % solution 12.5 g 12.5 g, IntraVENous, PRN, low blood sugar, Blood glucose less than 70 mg/dL and patient NOT ALERT or NPO., Starting on Mon06/06/23 at 1216, Recovery & On Unit, If patient does not respond within 5 minutes, repeat dose x1. Start D5W at 100 mL/hour until ordering provider can be reached. Repeat blood glucose in 15 minutes. If blood glucose is less than 70 mg/dL, repeat treatment and recheck blood glucose in 15 minutes x2. If using Glucostabilizer, dose as instructed per system. glucagon (human recombinant) injection 1 mg 1 mg, IntraMUSCular, PRN, low blood sugar, Blood glucose less than 70 mg/dL and patient NOT ALERT or NPO and does not have IV access., Starting on Mon06/06/23 at 1216, Recovery & On Unit, After administration, attempt intravenous access and start D5W at 100 mL/hr. Repeat blood glucose in 15 minutes x2 and notify provider. glucose oral gel 15 g 15 g, Oral, As needed, low blood sugar, Starting on Mon06/06/23 at 1216, Recovery & On Unit, If blood glucose less than 50 mg/dL and patient ALERT and NOT NPO, give 2 tubes glucose gel. If blood glucose less than 70 mg/dL and patient ALERT and NOT NPO, give 1 tube glucose gel. Repeat blood glucose in 15 minutes. If blood glucose is less than 70 mg/dL, repeat treatment and recheck blood glucose in 15 minutes x2 and notify provider. ipratropium-albuterol (Duo-Neb) 0.5-2.5 mg/3 mL nebulizer solution 3 mL 3 mL, Nebulization, 3 times daily PRN, wheezing, shortness of breath, Starting on Mon06/06/23 at 1216, Recovery & On Unit magnesium hydroxide (Milk of Magnesia) 400 MG/5ML suspension 30 mL 30 mL, Oral, Daily PRN, constipation, Starting on Mon06/06/23 at 1216, Recovery & On Unit, 1st line for treatment of constipation - give scheduled if no bowel movement in past 24 hours magnesium sulfate IVPB 4,000 mg(Linked Group 1) 4,000 mg, IntraVENous, at 25 mL/hr, Administer over 4 Hours, As needed, Per Magnesium Replacement Protocol, Starting on Mon06/06/23 at 1216, Recovery & On Unit, Mg Lab Replacement Action 1.4-1.6 2 gram IVPB x 1 doses 1.0-1.3 4 gram IVPB x 1 doses Less than 1.0 CALL PHYSICIAN and 4 gram IVPB x 1 doses Infuse at 1 gram/hr. Repeat Mag level next AM. Not for use in Patients with CrCl less than 30 mL/min. magnesium sulfate IVPB premix 2,000 mg(Linked Group 1) 2,000 mg, IntraVENous, at 25 mL/hr, Administer over 2 Hours, As needed, Per Magnesium Replacement Protocol, Starting on Mon06/06/23 at 1216, Recovery & On Unit, Mg Lab Replacement Action 1.4-1.6 2 gram IVPB x 1 doses 1.0-1.3 4 gram IVPB x 1 doses Less than 1.0 CALL PHYSICIAN and 4 gram IVPB x 1 doses Infuse at 1 gram/hr. Repeat Mag level next AM. Not for use in Patients with CrCl less than 30 mL/min. naloxone (Narcan) injection 0.4 mg 0.4 mg, IntraVENous, Every 5 min PRN, opioid reversal, respiratory depression, Starting on Gisella 06/08/23 at 0747, +++ For RR <10, pinpoint pupils, over sedation for opioid reversal - MUST notify global vp creative + content marketing provider immediately after first dose, may give IM or SQ if no IV access +++ ondansetron (Zofran) injection 4 mg(Linked Group 2) 4 mg, IntraVENous, Every 6 hours PRN, nausea, vomiting, Starting on Mon06/06/23 at 1216, Recovery & On Unit, 1st Line. Give IV if patient is unable to take orally. If inadequate response within 60 minutes, proceed to next-line agent or contact provider if no further options ordered. ondansetron ODT (Zofran-ODT) disintegrating tablet 4 mg(Linked Group 2) 4 mg, Oral, Every 8 hours PRN, nausea, vomiting, Starting on Mon06/06/23 at 1216, Recovery & On Unit, 1st Line. If inadequate response within 60 minutes, proceed to next-line agent or contact provider if no further options ordered. Patient should allow tablet to dissolve on tongue. Do not remove from blister pack until just before administering. oxyCODONE (Roxicodone) immediate release tablet 10 mg(Linked Group 3) 10 mg, Oral, Every 4 hours PRN, severe pain (7-10), Starting on Mon06/06/23 at 1216, Recovery & On Unit 0103 (Given - Provider: Sharon Cevallos RN) oxyCODONE (Roxicodone) immediate release tablet 5 mg(Linked Group 3) 5 mg, Oral, Every 4 hours PRN, moderate pain (4-6), Starting on Mon06/06/23 at 1216, Recovery & On Unit 0103 (See Alternative - Provider: Sharon Cevallos RN) potassium chloride 40 mEq in NS 500 mL IVPB (premix)(Linked Group 4) 40 mEq, IntraVENous, at 125 mL/hr, Administer over 4 Hours, PRN, hypokalemia, Starting on Mon06/06/23 at 1216, Recovery & On Unit, For Peripheral Line Use. K Lab Replacement Action 3.1-3.5 20 mEq IVPB x 1 doses 2.7-3.0 40 mEq IVPB x 1 doses less than 2.7 CALL PROVIDER and administer 40 mEq IVPB x 1 dose Infuse at 10 mEq/hr Repeat Potassium lab 1 hour after administration. Protocol not for use in Patients with CrCl less than 30mL/min potassium chloride CR (Klor-Con M10) ER tablet 20 mEq 20 mEq, Oral, PRN, Hypokalemia, Starting on Mon06/07/23 at 0000, Recovery & On Unit, If patient is intubated or not tolerating PO use PRN IV replacement protocol Potassium level Dose LESS than 3.0 = Give 20 mEq x 3 doses 3.0-3.6 = Give 20 mEq x 2 doses Recheck potassium level 2 hour after replacement given, place order for lab under [place] If potassium level LESS than 3 after 1st replacement: Call surgeon. Do not crush or break. Do not crush or chew. Potassium Chloride in NaCl IVPB 20 mEq(Linked Group 4) 20 mEq, IntraVENous, Administer over 2 Hours, PRN, hypokalemia, Starting on Mon06/06/23 at 1216, Recovery & On Unit, For Peripheral Line Use K Lab Replacement Action 3.1-3.5 20 mEq IVPB x 1 doses 2.7-3.0 40 mEq IVPB x 1 doses less than 2.7 CALL PROVIDER and administer 40 mEq IVPB x 1 dose Infuse at 10 mEq/hr Repeat Potassium lab 1 hour after administration. Protocol not for use in Patients with CrCl less than 30mL/min potassium chloride IVPB 20 mEq(Linked Group 4) 20 mEq, IntraVENous, at 50 mL/hr, Administer over 1 Hours, PRN, hypokalemia, Starting on Mon06/06/23 at 1216, Recovery & On Unit, For Central Line Use Only K Lab Replacement Action 3.1-3.5 20 mEq IVPB x 2 doses 2.7-3.0 20 mEq IVPB x 2 doses (40 mEq Total) less than 2.7 CALL PROVIDER and administer 20 mEq IVPB x 2 doses (40 mEq Total) Infuse at 20 mEq/hr Repeat Potassium lab 1 hour after final administration. Protocol not for use in Patients with CrCl less than 30mL/min For central line administration only. sodium chloride 0.9% (NS) flush 10 mL 10 mL, IntraVENous, PRN, line care, Starting on Mon06/06/23 at 1216, Recovery & On Unit, After every IV line use Linked Groups Order Group 1: magnesium sulfate IVPB premix 2,000 mgJump to med 2,000 mg, IntraVENous, at 25 mL/hr, Administer over 2 Hours, As needed, Per Magnesium Replacement Protocol, Starting on Mon06/06/23 at 1216, Recovery & On Unit, Mg Lab Replacement Action 1.4-1.6 2 gram IVPB x 1 doses 1.0-1.3 4 gram IVPB x 1 doses Less than 1.0 CALL PHYSICIAN and 4 gram IVPB x 1 doses Infuse at 1 gram/hr. Repeat Mag level next AM. Not for use in Patients with CrCl less than 30 mL/min. Or magnesium sulfate IVPB 4,000 mgJump to med 4,000 mg, IntraVENous, at 25 mL/hr, Administer over 4 Hours, As needed, Per Magnesium Replacement Protocol, Starting on Mon06/06/23 at 1216, Recovery & On Unit, Mg Lab Replacement Action 1.4-1.6 2 gram IVPB x 1 doses 1.0-1.3 4 gram IVPB x 1 doses Less than 1.0 CALL PHYSICIAN and 4 gram IVPB x 1 doses Infuse at 1 gram/hr. Repeat Mag level next AM. Not for use in Patients with CrCl less than 30 mL/min. Group 2: ondansetron ODT (Zofran-ODT) disintegrating tablet 4 mgJump to med 4 mg, Oral, Every 8 hours PRN, nausea, vomiting, Starting on Mon06/06/23 at 1216, Recovery & On Unit, 1st Line. If inadequate response within 60 minutes, proceed to next-line agent or contact provider if no further options ordered. Patient should allow tablet to dissolve on tongue. Do not remove from blister pack until just before administering. Or ondansetron (Zofran) injection 4 mgJump to med 4 mg, IntraVENous, Every 6 hours PRN, nausea, vomiting, Starting on Mon06/06/23 at 1216, Recovery & On Unit, 1st Line. Give IV if patient is unable to take orally. If inadequate response within 60 minutes, proceed to next-line agent or contact provider if no further options ordered. Group 3: oxyCODONE (Roxicodone) immediate release tablet 5 mgJump to med 5 mg, Oral, Every 4 hours PRN, moderate pain (4-6), Starting on Mon06/06/23 at 1216, Recovery & On Unit Or oxyCODONE (Roxicodone) immediate release tablet 10 mgJump to med 10 mg, Oral, Every 4 hours PRN, severe pain (7-10), Starting on Mon06/06/23 at 1216, Recovery & On Unit Group 4: potassium chloride IVPB 20 mEqJump to med 20 mEq, IntraVENous, at 50 mL/hr, Administer over 1 Hours, PRN, hypokalemia, Starting on Mon06/06/23 at 1216, Recovery & On Unit, For Central Line Use Only K Lab Replacement Action 3.1-3.5 20 mEq IVPB x 2 doses 2.7-3.0 20 mEq IVPB x 2 doses (40 mEq Total) less than 2.7 CALL PROVIDER and administer 20 mEq IVPB x 2 doses (40 mEq Total) Infuse at 20 mEq/hr Repeat Potassium lab 1 hour after final administration. Protocol not for use in Patients with CrCl less than 30mL/min For central line administration only. Or Potassium Chloride in NaCl IVPB 20 mEqJump to med 20 mEq, IntraVENous, Administer over 2 Hours, PRN, hypokalemia, Starting on Mon06/06/23 at 1216, Recovery & On Unit, For Peripheral Line Use K Lab Replacement Action 3.1-3.5 20 mEq IVPB x 1 doses 2.7-3.0 40 mEq IVPB x 1 doses less than 2.7 CALL PROVIDER and administer 40 mEq IVPB x 1 dose Infuse at 10 mEq/hr Repeat Potassium lab 1 hour after administration. Protocol not for use in Patients with CrCl less than 30mL/min Or potassium chloride 40 mEq in NS 500 mL IVPB (premix)Jump to med 40 mEq, IntraVENous, at 125 mL/hr, Administer over 4 Hours, PRN, hypokalemia, Starting on Mon06/06/23 at 1216, Recovery & On Unit, For Peripheral Line Use. K Lab Replacement Action 3.1-3.5 20 mEq IVPB x 1 doses 2.7-3.0 40 mEq IVPB x 1 doses less than 2.7 CALL PROVIDER and administer 40 mEq IVPB x 1 dose Infuse at 10 mEq/hr Repeat Potassium lab 1 hour after administration. Protocol not for use in Patients with CrCl less than 30mL/min FOR RECORDS PERTAINING TO PATIENTS WHO ARE [...] BE BASED ON THE PRIMARY CLINICAL RECORDS. [employer] provides no warranty or guarantee of the accuracy or completeness of information in this document.
[2025-01-18 10:46] LABS: Anion Gap 11 (5-15); BUN 25 mg/dL (4-19); BUN/Creat Ratio 19.4 RATIO (10-20); Calcium,Total 9.6 mg/dL (7.6-11.0); Carbon Dioxide 25.0 mmol/L (21.0-32.0); Chloride 102 mmol/L (98-108); Estimated Creatinine Clearance 62.27 ml/min (50-250); Glucose 165 mg/dL (70-99); Potassium 4.1 mmol/L (3.3-5.1)
[2025-01-18 10:52] LABS: Troponin T High Sensitivity 55 ng/L (<=22)
[2025-01-18] MEDS: 0.9% Normal Saline (1000mL) 1,000 ML 150 ML IV (11:10)
[2025-01-18 11:22] VITALS: BP 132/75; PULSE 67; RESP 16; O2SAT 97
[2025-01-18 11:23] VITALS: BP 121/67; BP 132/75; BP 139/79; PULSE 67; PULSE 68; PULSE 69
[2025-01-18 12:01] VITALS: BP 163/91; PULSE 66; RESP 32; O2SAT 94
[2025-01-18 12:02] VITALS: BMI 37.8
[2025-01-18 12:52] LABS: Troponin T High Sens 2 HR 53 ng/L (<=22)
[2025-01-18 12:59] VITALS: BP 144/82; PULSE 60; RESP 17; O2SAT 96
[2025-01-18 13:26] VITALS: BP 147/94; PULSE 64; RESP 16; TEMP 36.6; O2SAT 97
== END 2025-01-18 13:31 | disposition home or self-care (01) ==
PROVIDERS: Emergency Provider Emergency Medicine; PCP Family Medicine; Visit Provider Emergency Medicine
DX: R42 Dizziness and giddiness (principal); E11.9 Type 2 diabetes mellitus without complications; I10 Essential (primary) hypertension; I25.2 Old myocardial infarction; I25.10 Atherosclerotic heart disease of native coronary artery without angina pectoris; E78.00 Pure hypercholesterolemia, unspecified; Z95.1 Presence of aortocoronary bypass graft
CPT/HCPCS: 70450; 70496; 70498; 80048; 82962; 84484; 85025; 93005; 96360; 96361; 99285; Q9967; A4216